=== PATIENT | male | born 1940 | race Caucasian/White ===

== ENCOUNTER 2022-11-06 09:52 | Emergency (ER) | payer MEDICARE, SELFPAY ==
[2022-11-06 09:56] VITALS: BP 138/98; PULSE 100; RESP 18; TEMP 37.1; O2SAT 98; BMI 26.9
--- NOTE | 2022-11-06 10:09 | ED.GENADUL1 ---
HPI - General Adult General Chief complaint: Allergic Reaction Stated complaint: FACIAL SWELLING Time Seen by Provider: 11/06/22 09:59 Source: patient History of Present Illness HPI narrative: pt presents to emergency department complaining of left lower lip swelling. Patient states yesterday he woke up and his left lower lid felt like it was swollen as if he had bit himself.Patient has a history of bruxism and was not wearing any my card. He states since yesterday after he felt like he bit himself started noticing swelling and this morning the swelling had worsened and there is a small amount of erythema. He went to see his primary care doctor and they did not have an appointment until 4 PM but advised him to come to the emergency department. Patient does not have a history of hypertension does not take any antihypertensives. He denies any trauma. He does have a history of diabetes. He denies any tongue swelling, throat swelling, difficulty swallowing or breathing. He has not taking anything at home. He denies any Fever, chills, cough or upper respiratory infection symptoms. He denies any headache. Denies any chest pain, shortness of breath. Related Data Home Medications Medication Instructions Recorded Confirmed fluticasone propionate 50 2 spray intranasal Q12H 11/06/22 11/06/22 mcg/actuation nasal spray,suspension glipizide 10 mg tablet 10 mg PO QDAY 11/06/22 11/06/22 metformin 500 mg tablet,extended 500 mg PO QDAY 11/06/22 11/06/22 release 24 hr Previous Rx's Medication Instructions Recorded amoxicillin 875 mg-potassium 1 tab PO BID #20 tabs 11/06/22 clavulanate 125 mg tablet Allergies Allergy/AdvReac Type Severity Reaction Status Date / Time codeine Allergy Severe Verified 11/06/22 10:16 Review of Systems ROS Status of ROS 10 or more systems reviewed and unremarkable except as noted in history and below PFSH PFS Social History Smoking status: Never smoker Exam Narrative Exam Narrative: Nurses notes and vital signs reviewed and patient is not hypoxic. General: Elderly, Nontoxic, Well-appearing and in no apparent distress. Skin: Warm, dry, no pallor noted. No Rash Head: Normocephalic, atraumatic. Neck: Supple, non-tender. Eye: Pupils are equal, round and EOMI. No scleral icterus. Ears, Nose, Mouth, and Throat: TM clear, no posterior oropharynx erythema or nasal mucosal hypertrophy, uvula is mid-line Oral mucosa is moist, There is no tongue elevation, no trismus, oropharynx is clear. There is an intra-oral wound to the left lower lip with some fullness but no fluctuance. There is some mild amount of erythema, no crepitance and no abscess noted. Poor dentition, signs of grinding noted. Cardiovascular: Regular Rate and Rhythm without murmur, gallop or rub. Respiratory: No accessory muscle use or respiratory distress. Lungs are clear to auscultation, no wheezing, rales or rhonchi Chest Wall: no tenderness Back: No midline thoracic or lumbar vertebral tenderness. No CVA tenderness Musculoskeletal: normal ROM, no calf or popliteal tenderness, no lower extremity edema/swelling GI: Abdomen is soft, non-distended. Normal bowel sounds. No masses appreciated. No tenderness to palpation. No rebound, guarding, or rigidity noted. Neurological: A&O x4. No cranial nerve dysfunction observed. No truncal ataxia. Moves all extremities. Sensation intact. Psychiatric: Cooperative and interactive. Normal mood and affect. Constitutional Vital Signs - 24 hr 11/06/22 09:56 Temperature 98.8 F Pulse Rate [Monitor] 100 H Respiratory Rate 18 Blood Pressure [Left Arm] 138/98 H Pulse Oximetry 98 Oxygen Delivery Method Room Air Course Vital Signs Vital signs: Vital Signs Temperature 98.8 F 11/06/22 09:56 Pulse Rate 100 H 11/06/22 09:56 Respiratory Rate 18 11/06/22 09:56 Blood Pressure 138/98 H 11/06/22 09:56 Pulse Oximetry 98 11/06/22 09:56 Oxygen Delivery Method Room Air 11/06/22 09:56 Temperature 98.8 F 11/06/22 09:56 Pulse Rate 100 H 11/06/22 09:56 Respiratory Rate 18 11/06/22 09:56 Blood Pressure 138/98 H 11/06/22 09:56 Pulse Oximetry 98 11/06/22 09:56 Oxygen Delivery Method Room Air 11/06/22 09:56 Medical Decision Making MDM Narrative Medical decision making narrative: Patient does not have any signs of angioedema. There is erythema and an intraoral wound. Patient is advised to use a mouth guard follow-up with primary care doctor and dentist. He started on Augmentin. Advised continue to monitor. If symptoms worsen he is to return immediately to the emergency department. At this time the patient is without objective evidence of an acute process requiring hospitalization or inpatient management. The patient has remained hemodynamically stable. No additional indication for emergent studies at this time. I answered all questions. Discussed discharge instructions including standard anticipatory guidance and what should prompt a return to the emergency department, including if they get worse are not getting better or develops any new or concerning symptoms. I've given them specific time frame in which to follow-up, and who to follow-up with. The patient demonstrates understanding. Patient is nontoxic and stable for discharge with outpatient follow-up. This note was created with the assistance of a speech recognition program. Although the intention is to generate documents that actually reflects the content of the visit, no guarantees can be provided that every mistake has been identified and corrected by editing. Discharge Plan Discharge Chief Complaint: Allergic Reaction Clinical Impression: Cellulitis of lip Patient Disposition: Home, Self-Care Time of Disposition Decision: 10:16 Condition: Good Mode of Transportation: Private Vehicle Prescriptions / Home Meds: New amoxicillin-pot clavulanate 875-125 mg tablet 1 tab PO BID Qty: 20 0RF No Action fluticasone propionate 50 mcg/actuation spray,suspension 2 spray INTRANASAL Q12H metformin 500 mg tablet extended release 24 hr 500 mg PO QDAY glipizide 10 mg tablet 10 mg PO QDAY Instructions: Cellulitis (ED) Stand Alone Forms: Portal Instructions Referrals: Jorge Luis Sotelo MD [Primary Care Provider] - 1 week
== END 2022-11-06 10:43 | disposition home or self-care (01) ==
PROVIDERS: Emergency Provider Emergency Medicine; PCP Family Medicine
DX: K13.0 Diseases of lips (principal); Z79.899 Other long term (current) drug therapy; Z79.84 Long term (current) use of oral hypoglycemic drugs
CPT/HCPCS: 99283

== ENCOUNTER 2023-01-02 14:02 | Emergency (ER) | payer MEDICARE, SELFPAY ==
[2023-01-02 14:07] VITALS: BP 134/85; PULSE 88; RESP 18; TEMP 36.8; O2SAT 98; BMI 39.9
--- NOTE | 2023-01-02 14:18 | PC.NURSE ---
red raised draining rash at this time.
[2023-01-02] MEDS: FLUORESCEIN SODIUM 1 MG STRIP OP (14:19)
--- NOTE | 2023-01-02 14:24 | ED.SKABFB1 ---
HPI - Skin/Abscess/Foreign Bdy General Chief complaint: Skin/Abscess/Foreign Body Stated complaint: NAUSEA Time Seen by Provider: 01/02/23 14:09 Source: patient Mode of arrival: walk-in Limitations: no limitations History of Present Illness HPI narrative: patient is an 82-year-old male who presents to the emergency department for the evaluation of a rash over the forehead. Patient states the rash began yesterday. He denies that it is painful or pruritic. He states today he noticed that his left eyelid was swollen and he has had some drainage from his left eye. He saw his PCP yesterday and was diagnosed with shingles and he is concerned today that the shingles may be traveling to his eye. He states he has been nauseous and had dry heaving this morning, he was started on amoxicillin yesterday by his PCP for left otitis media. He denies any upper respiratory symptoms. No visual changes, fevers. He has no chest pain or abdominal pain. Related Data Home Medications Medication Instructions Recorded Confirmed fluticasone propionate 50 2 spray intranasal Q12H 11/06/22 11/06/22 mcg/actuation nasal spray,suspension glipizide 10 mg tablet 10 mg PO QDAY 11/06/22 11/06/22 metformin 500 mg tablet,extended 500 mg PO QDAY 11/06/22 11/06/22 release 24 hr Previous Rx's Medication Instructions Recorded amoxicillin 875 mg-potassium 1 tab PO BID #20 tabs 11/06/22 clavulanate 125 mg tablet acyclovir 800 mg tablet See Rx Instructions .Route 01/02/23 .COMPLEX #35 tabs ondansetron 4 mg disintegrating 4 mg PO Q6H PRN nausea and 01/02/23 tablet vomiting #12 tabs prednisone 20 mg tablet See Rx Instructions .Route 01/02/23 .COMPLEX #6 tabs Allergies Allergy/AdvReac Type Severity Reaction Status Date / Time codeine Allergy Severe Verified 11/06/22 10:16 Review of Systems ROS Constitutional Denies: fever or chills Eyes Reports: eye discharge; Denies: change in vision or blurry vision Ears, nose, mouth, and throat Denies: throat pain Cardiovascular Denies: chest pain Respiratory Denies: shortness of breath or cough Gastrointestinal Reports: nausea; Denies: abdominal pain Musculoskeletal Denies: back pain Integumentary/Breast Reports: rash Neurological Denies: headache PFSH PFSH Social History Smoking status: Never smoker Exam Narrative Exam Narrative: Gen.: Awake, alert, in no distress Head: Normocephalic, atraumatic ENT: Moist mucous membranes, left upper eyelid is mildly edematous, no conjunctival injection or active drainage. Normal range of motion in the eyes that is painless Respiratory: No respiratory distress Extremities: Moves extremities equally Psych: Normal mood and affect Neuro: No focal neuro deficit Skin: Warm, dry, erythematous, linear vesicular rash over the left forehead with no excoriation, no active drainage. No evidence of secondary cellulitis. No mucous membrane involvement Constitutional Vital Signs, click to edit/add: Last Vital Signs Temp 98.2 F 01/02/23 14:07 Pulse 88 01/02/23 14:07 Resp 18 01/02/23 14:07 BP 134/85 01/02/23 14:07 Pulse Ox 98 01/02/23 14:07 Course Vital Signs Vital signs: Vital Signs Temperature 98.2 F 01/02/23 14:07 Pulse Rate 88 01/02/23 14:07 Respiratory Rate 18 01/02/23 14:07 Blood Pressure 134/85 01/02/23 14:07 Pulse Oximetry 98 01/02/23 14:07 Temperature 98.2 F 01/02/23 14:07 Pulse Rate 88 01/02/23 14:07 Respiratory Rate 18 01/02/23 14:07 Blood Pressure 134/85 01/02/23 14:07 Pulse Oximetry 98 01/02/23 14:07 MDM - Skin/Abscess/Foreign Bdy MDM Narrative Medical decision making narrative: the patient's left eye was anesthetized with tetracaine and stained with fluorescein, examined under Harrison lamp. There is minimal irritation noted in the inferior eye on the conjunctiva but the patient has no dendritic lesions or areas of significant uptake. patient reevaluated by attending physician, patient was instructed to stop the Augmentin he was given yesterday as his tympanic membranes are clear, he was instructed to follow-up with PCP and ophthalmology. Prednisone, acyclovir, Zofran given for home. Return to the emergency departmment if symptoms change or worsen. Medical Records Attestation: I reviewed the patient's medical records. Discharge Plan Discharge Chief Complaint: Skin/Abscess/Foreign Body Clinical Impression: Herpes zoster, Nausea Patient Disposition: Home, Self-Care Time of Disposition Decision: 14:50 Condition: Good Prescriptions / Home Meds: New prednisone 20 mg tablet See Rx Instructions .ROUTE .COMPLEX Qty: 6 0RF Rx Instructions: 2 tabs daily for 2 days, then 1 tab daily for 2 days acyclovir 800 mg tablet See Rx Instructions .ROUTE .COMPLEX Qty: 35 0RF Rx Instructions: 800 mg orally 5 times a day for 7 days ondansetron 4 mg tablet,disintegrating 4 mg PO Q6H PRN (Reason: nausea and vomiting) Qty: 12 0RF No Action fluticasone propionate 50 mcg/actuation spray,suspension 2 spray INTRANASAL Q12H metformin 500 mg tablet extended release 24 hr 500 mg PO QDAY glipizide 10 mg tablet 10 mg PO QDAY amoxicillin-pot clavulanate 875-125 mg tablet 1 tab PO BID Qty: 20 0RF Instructions: Shingles (ED), Acute Nausea and Vomiting (ED) Stand Alone Forms: Portal Instructions Referrals: Jorge Luis Sotelo MD [Primary Care Provider] - 1 week
[2023-01-02] MEDS: TOBRAMYCIN 0.3% OP SOL 100 DROP/5 ML BOTTLE OP (15:04)
== END 2023-01-02 15:07 | disposition home or self-care (01) ==
PROVIDERS: Emergency Provider Emergency Medicine; PCP Family Medicine
DX: B02.9 Zoster without complications (principal); R11.0 Nausea; Z79.84 Long term (current) use of oral hypoglycemic drugs; Z79.899 Other long term (current) drug therapy
CPT/HCPCS: 99283

== ENCOUNTER 2023-05-02 09:35 | Outpatient (OUT) | payer MEDICARE, SELFPAY ==
[2023-05-02 10:01] LABS: Basophils Absolute Auto 0.1 10^3/uL (0.0-0.1); Basophils Percent Auto 1.5 % (0.2-2.0); Eosinophils Absolute Auto 0.5 10^3/uL (0.0-0.7); Eosinophils Percent Auto 5.2 % (0.9-7.0); Hematocrit 39.9 % (42.0-54.0); Hemoglobin 13.2 g/dL (14.0-18.0); Immature Granulocytes Abs Auto 0.03 10^3/uL (0.00-0.03); Immature Granulocytes Pct Auto 0.3 % (0.0-0.5); Lymphocytes Absolute Auto 2.2 10^3/uL (1.2-3.8); Lymphocytes Percent Auto 23.5 % (20.5-60.0); Mean Corpuscular HGB Conc 33.1 g/dL (29.9-35.2); Mean Corpuscular Hemoglobin 30.6 pg (25.9-34.0); Mean Corpuscular Volume 92.4 fL (80.0-94.0); Mean Platelet Volume 9.7 fL (9.5-13.5); Monocytes Absolute Auto 0.8 10^3/uL (0.3-0.8); Monocytes Percent Auto 8.4 % (1.7-12.0); Neutrophils Absolute Auto 5.7 10^3/uL (1.4-6.5); Neutrophils Percent Auto 61.1 % (43.0-75.0); Platelet Count 425 10^3/uL (150-450); Red Blood Count 4.32 10^6/uL (4.70-6.10); Red Cell Distribution Width 12.2 % (11.0-15.0); White Blood Count 9.4 10^3/uL (4.0-11.0)
[2023-05-02 10:46] LABS: Free T4 0.96 ng/dL (0.76-1.46)
[2023-05-02 10:48] LABS: Estimated Average Glucose 154 mg/dL
[2023-05-02 10:54] LABS: Alanine Aminotransferase 22 U/L (16-63); Albumin Level 3.5 g/dL (3.4-5.0); Alkaline Phosphatase 68 U/L (46-116); Anion Gap 11.5; Aspartate Amino Transferase 12 U/L (15-37); BUN Creatinine Ratio 21.4; Bilirubin Direct 0.1 mg/dL (0.0-0.2); Bilirubin Total 0.5 mg/dL (0.2-1.0); Calcium 9.3 mg/dL (8.5-10.1); Carbon Dioxide 30.1 mmol/L (21.0-32.0); Chloride 103 mmol/L (98-107); Chol HDL Ratio 4.3; Cholesterol 216 mg/dL (<=200); Estimated GFR (African America >60 (>=60); Estimated GFR (Non-African Ame 53 (>=60); Free T3 2.03 pg/mL (2.18-3.98); Globulin 3.6 g/dL; Glucose 174 mg/dL (74-106); HDL Cholesterol 50 mg/dL (40-60); Potassium 3.6 mmol/L (3.5-5.1); Sodium 141 mmol/L (136-145); Thyroid Stimulating Hormone 1.687 uIU/mL (0.358-3.740); Total Protein 7.1 g/dL (6.4-8.2); Triglycerides 180 mg/dL (<=150)
[2023-05-02 11:17] LABS: Prostate Specific Antigen Scrn 0.41 ng/mL (<=4.00)
== END 2023-05-02 09:36 | disposition home or self-care (01) ==
PROVIDERS: PCP Family Medicine; Visit Provider Family Medicine
DX: E11.65 Type 2 diabetes mellitus with hyperglycemia (principal); Z79.899 Other long term (current) drug therapy; E03.9 Hypothyroidism, unspecified; E78.5 Hyperlipidemia, unspecified; Z12.5 Encounter for screening for malignant neoplasm of prostate
CPT/HCPCS: 36415; 80048; 80061; 80076; 82043; 83036; 84439; 84443; 84481; 85025; G0103

== ENCOUNTER 2023-12-03 13:01 | Outpatient (OUT) | payer MEDICARE, SELFPAY ==
--- NOTE | 2023-12-03 | XR_ITS ---
[address] [address] Patient Name: JAM RAMIREZ MRN: [id number] date: 1940 Sex: M Assigned Patient Location: [facility] Current Patient Location: Accession/Order Number: [id number] Exam Date: 12/03/2023 13:05 Report Date: 12/06/2023 04:26 At the request of: GERSON MALIK Procedure: XR lumbar spine 2-3V EXAMINATION: XR lumbar spine 2-3V HISTORY: Lumbar spondylosis M47.816 COMPARISON: No relevant comparison available. FINDINGS: BONES: Mild left convex curvature of lumbar spine. Moderate degenerative facet arthropathy L3-L4 through L5-S1. Minimal grade 1 retrolisthesis of L2 on 3. No compression fracture. DISC SPACES: Moderate narrowing L1-L2. Marked narrowing L5-S1. PARASPINOUS: Marked atherosclerotic disease of distal aorta. OTHER: Negative. XR/XR lumbar spine 2-3V IMPRESSION: 1. Multilevel degenerative disc disease and facet arthropathy. 2. No appreciable fracture or acute abnormality. Electronically authenticated by: CARLOS SELF Date: 12/06/2023 04:26
--- OUTSIDE RECORDS SUMMARY | 2023-12-03 13:21 | XMS_ITS | CCD ---
Author Organization [facility] Care Team Providers Care Specialty Person Name Role Phone KING, DR GERSON Packer Attending Unavailable NADERER, DR GERSON Packer Consulting Unavailable NADERER, DR GERSON Packer Primary Care Unavailable NADERER, DR GERSON Packer Admitting Unavailable NADERER, DR GERSON Packer Consulting Unavailable NADERER, DR GERSON Packer Primary Care Unavailable NADERER, DR GERSON Packer Admitting Unavailable NADERER, DR GERSON Packer Attending Unavailable NADERER, DR GERSON Packer Consulting Unavailable NADERER, DR GERSON Packer Primary Care Unavailable NADERER, DR GERSON Packer Admitting Unavailable NADERER, DR GEROSN Packer Attending Unavailable NADERER, GERSON Attending Unavailable Allergies Allergy Classification Reported Allergen(s) Allergy Type Date of Onset Reaction(s) Facility (1 source) Codeine Drug Allergy 07-02-2021 [facility] Repository Problems Active Problems Problem Classification Problem Date Documented Da te Episodic/Chronic Chronic obstructive pulmonary disease and bronchiectasis (4 sources) Chronic obstructive pulmonary disease, unspecified; Translations: [COPD UNSPECIFIED] Onset: 02-21-2022 Chronic Diabetes mellitus with complications (4 sources) Type 2 diabetes mellitus with hyperglycemia; Translations: [TYPE 2 DM W/HYPERGLYCEMIA] Onset: 09-16-2022 Chronic Disorders of lipid metabolism (1 source) Hyperlipidemia, unspecified; Translations: [HYPERLIPIDEMIA UNSPECIFIED] Onset: 02-16-2022 Chronic Past or Other Problems Problem Classification Problem Date Documented Da te Episodic/Chronic Other aftercare (1 source) 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; Translations: [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 CURRENT DRUG THERAPY] Onset: 02-16-2022 Episodic Other screening for suspected conditions (not mental disorders or infectious disease) (1 source) Encounter for screening for malignant neoplasm of prostate; Translations: [ENC SCREEN MALIG NEOPLASM PROSTATE] Onset: 02-16-2022 Episodic Results Test Name Value Interpretation Reference Range Facil ity GLYCOHEMOGLOBIN A1Con 2022 ADA RECOMMENDATION SEE BELOW Normal [facility] Comment on above: Result Comment: ADA RECOMMENDED LIMIT 4.0 - 6.0 ADA THERAPEUTIC TARGET < 7.0 ACTION SUGGESTED > 7.0 Performed By: #### A 1C #### [facility] [address] [place] [address] Dr. Sulema Blair Glucose [Mass/Vol] 160 mg/dL Normal [facility] [place] Comment on above: Performed By: #### A 1C #### [facility] [address] [place] [address] Dr. Sulema Blair HbA1c (Bld) [Mass fraction] 7.2 % Critically high 4.5-6.2 [facility] Comment on above: Performed By: #### A 1C #### [facility] [address] [place] [address] Dr. Sulema Blair MICROALBUMIN URINEon 022 Albumin, Urine 11.1 ug/mL Normal Not Estab. The [facility] Comment on above: Performed By: #### M ALBLC #### [facility] [address] [place] [address] Dr. Sulema Blair CBC AUTO DIFFon 02-12-2022 BASO # 0.1 103/ul Normal 0.0-0.1 [facility] Comment on above: Performed By: #### C BC #### [facility] [address] [place] [address] Dr. Sulema Blair Basophils/100 WBC (Bld) 0.7 % Normal 0.2-2.0 [facility] Comment on above: Performed By: #### C BC #### [facility] [address] [place] [address] Dr. Sulema Blair EO # 0.4 103/ul Normal 0.0-0.7 [facility] Comment on above: Performed By: #### C BC #### [facility] [address] [place] [address] Dr. Sulema Blair Eosinophils/100 WBC (Bld) 3.7 % Normal 0.9-7.0 [facility] Comment on above: Performed By: #### C BC #### [facility] [address] [place] [address] Dr. Sulema Blair Erythrocyte distribution width (RBC) [Ratio] 13.0 % Normal 11.0-15.0 [facility] Comment on above: Performed By: #### C BC #### [facility] [address] [place] [address] Dr. Sulema Blair Hematocrit (Bld) [Volume fraction] 37.7 % Critically low 42.0-54.0 [facility] Comment on above: Performed By: #### C BC #### [facility] [address] [place] [address] Dr. Sulema Blair Hemoglobin (Bld) [Mass/Vol] 12.4 g/dL Critically low 14.0-18.0 [facility] Comment on above: Performed By: #### C BC #### [facility] [address] [place] [address] Dr. Sulema Blair IG # 0.03 10e3/ul Normal 0.00-0.03 [facility] Comment on above: Performed By: #### C BC #### [facility] [address] [place] [address] Dr. Suleam Blair IG % 0.3 % Normal 0.0-0.5 [facility] Comment on above: Performed By: #### C BC #### [facility] [address] [place] [address] Dr. Sulema Blair LYMPH # 1.3 103/ul Normal 1.2-3.8 [facility] Comment on above: Performed By: #### C BC #### [facility] [address] [place] [address] Dr. Sulema Blair Lymphocytes/100 WBC (Bld) 13.7 % Critically low 20.5-60.0 [facility] Comment on above: Performed By: #### C BC #### [facility] [address] [place] [address] Dr. Sulema Blair MANUAL DIFF REQ NO Normal The [facility] Comment on above: Performed By: #### C BC #### [facility] [address] [place] [address] Dr. Sulema Blair MCH (RBC) [Entitic mass] 30.5 pg Normal 25.9-34.0 [facility] Comment on above: Performed By: #### C BC #### [facility] [address] [place] [address] Dr. Sulema Blair MCHC (RBC) [Mass/Vol] 32.9 g/dL Normal 29.9-35.2 [facility] Comment on above: Performed By: #### C BC #### [facility] [address] [address] [address] Sulema Blair MCV (RBC) [Entitic vol] 92.9 fL Normal 80.0-94.0 [facility] Comment on above: Performed By: #### C BC #### [facility] [address] [place] [address] Dr. Sulema Blair MONO # 0.9 103/ul Critically high 0.3-0.8 [facility] Comment on above: Performed By: #### C BC #### [facility] [address] [place] [address] Dr. Sulema Blair Monocytes/100 WBC (Bld) 9.7 % Normal 1.7-12.0 [facility] Comment on above: Performed By: #### C BC #### [facility] [address] [place] [address] Dr. Sulema Blair NEUT # 6.9 103/ul Critically high 1.4-6.5 [facility] Comment on above: Performed By: #### C BC #### [facility] [address] [place] [address] Dr. Sulema Blair Neutrophils/100 WBC (Bld) 71.9 % Normal 43.0-75.0 [facility] Comment on above: Performed By: #### C BC #### [facility] [address] [place] [address] Dr. Sulema Blair Platelet mean volume (Bld) [Entitic vol] 10.7 fL Normal 9.5-13.5 [facility] Comment on above: Performed By: #### C BC #### [facility] [address] [place] [address] Dr. Sulema Blair PLT 313 103/ul Normal 150-450 [facility] Comment on above: Performed By: #### C BC #### [facility] [address] [address] [address] Sulema Blair RBC 4.06 106/ul Critically low 4.70-6.10 [facility] Comment on above: Performed By: #### C BC #### [facility] [address] [address] [address] Sulema Blair WBC 9.6 103/ul Normal 4.0-11.0 [facility] Comment on above: Performed By: #### C BC #### [facility] [address] [address] [address] Sulema Blair GLYCOHEMOGLOBIN A1Con 2021 ADA RECOMMENDATION SEE BELOW Normal [facility] [place] Comment on above: Result Comment: ADA RECOMMENDED LIMIT 4.0 - 6.0 ADA THERAPEUTIC TARGET < 7.0 ACTION SUGGESTED > 7.0 Performed By: #### A 1C #### [facility] [address] [address] [address] Sulema Blair Glucose [Mass/Vol] 157 mg/dL Normal [facility] [place] Comment on above: Performed By: #### A 1C #### [facility] [address] [address] [address] Sulema Blair HbA1c (Bld) [Mass fraction] 7.1 % Critically high 4.5-6.2 [facility] Comment on above: Performed By: #### A 1C #### [facility] [address] [place] [address] Dr. Sulema Blair LIPID PROFILEon 02-12-2022 CHOL-HDL RATIO NORM SEE BELOW Normal [facility] Comment on above: Result Comment: 3.3 - 4.4 LOW RISK 4.4 - 7.1 AVERAGE RISK 7.1 - 11.0 MODERATE RISK >11.0 HIGH RISK Performed By: #### L IVANNABELLA, BMP, LIPID #### [facility] [address] [address] [address] Sulema Blair Cholesterol [Mass/Vol] 238 mg/dL Critically high <=200 [facility] Comment on above: Performed By: #### L IVANNABELLA BMP, LIPID #### [facility] [address] [address] [address] Sulema Blair Cholesterol in HDL [Mass/Vol] 45 mg/dL Normal 40-60 [facility] Comment on above: Performed By: #### L IVANNABELLA BMP, LIPID #### [facility] [address] [address] [address] Sulema Blair Cholesterol in LDL [Mass/Vol] 141.4 mg/dL Normal [facility] Comment on above: Performed By: #### L IVANNABELLA BMP, LIPID #### [facility] [address] [place] [address] Dr. Sulema Blair Cholesterol.total/Cho lesterol in HDL [Mass ratio] 5.3 {ratio} Normal [facility] Comment on above: Performed By: #### L IVANNABELLA BMP, LIPID #### [facility] [address] [address] [address] Sulema Blair HDL NORMAL > or = 60 mg/dl - LOW CARDIOVASCULAR RISK <40 mg/dl - HIGH CARDIOVASCULAR RISK Normal [facility] Comment on above: Performed By: #### L IVANNABELLA BMP, LIPID #### [facility] [address] [place] [address] Dr. Sulema Blair LDL CALC NORMAL SEE BELOW Normal [facility] Comment on above: Result Comment: <100 mg/dl OPTIMAL 100 - 129 mg/dl NEAR OR ABOVE OPTIMAL 130 - 159 mg/dl BORDERLINE HIGH 160 - 189 mg/dl HIGH >190 mg/dl VERY HIGH Performed By: #### L IVANNABELLA BMP, LIPID #### [facility] [address] [address] [address] Sulema Blair Triglyceride [Mass/Vol] 258 mg/dL Critically high <=150 [facility] Comment on above: Performed By: #### L IVANNABELLA BMP, LIPID #### [facility] [address] [address] [address] Sulema Blair VLDL CALC 51.6 mg/dL Normal [facility] Comment on above: Performed By: #### L IVER, BMP, LIPID #### [facility] [address] [address] [address] Sulema Blair LIVER PROFILEon 02-12-2022 Albumin [Mass/Vol] 3.4 g/dL Normal 3.4-5.0 [facility] Comment on above: Performed By: #### L IVER, BMP, LIPID #### [facility] [address] [address] [address] Sulema Blair Albumin/Globulin [Mass ratio] 0.9 {ratio} Normal [facility] Comment on above: Performed By: #### L IVER, BMP, LIPID #### [facility] [address] [place] [address] Dr. Sulema Blair ALP [Catalytic activity/Vol] 78 U/L Normal 46-116 [facility] Comment on above: Performed By: #### L IVER, BMP, LIPID #### [facility] [address] [place] [address] Dr. Sulema Blair ALT [Catalytic activity/Vol] 27 U/L Normal 16-63 [facility] Comment on above: Performed By: #### L IVER, BMP, LIPID #### [facility] [address] [place] [address] Dr. Sulema Blair AST [Catalytic activity/Vol] 24 U/L Normal 15-37 [facility] Comment on above: Performed By: #### L IVER, BMP, LIPID #### [facility] [address] [place] [address] Dr. Sulema Blair BILI, CONJUGATED 0.1 mg/dL Normal 0.0-0.2 [facility] Comment on above: Performed By: #### L IVER, BMP, LIPID #### [facility] [address] [place] [address] Dr. Sulema Blair Bilirubin [Mass/Vol] 0.5 mg/dL Normal 0.2-1.0 [facility] Comment on above: Performed By: #### L IVER, BMP, LIPID #### [facility] [address] [place] [address] Dr. Sulema Blair Globulin (S) [Mass/Vol] 3.6 g/dL Normal [facility] Comment on above: Performed By: #### L IVER, BMP, LIPID #### [facility] [address] [address] [address] Sulema Blair Protein [Mass/Vol] 7.0 g/dL Normal 6.4-8.2 [facility] Comment on above: Performed By: #### L IVER, BMP, LIPID #### [facility] [address] [address] [address] Sulema Blair PROF CHEM 8 (BAS METB)on Anion gap [Moles/Vol] 12.5 mmol/L Normal [facility] Comment on above: Performed By: #### L IVER, BMP, LIPID #### [facility] [address] [place] [address] Dr. Sulema Blair Calcium [Mass/Vol] 9.4 mg/dL Normal 8.5-10.1 [facility] Comment on above: Performed By: #### L IVER, BMP, LIPID #### [facility] [address] [address] [address] Sulema Blair Chloride [Moles/Vol] 104 mmol/L Normal 98-107 [facility] Comment on above: Performed By: #### L IVER, BMP, LIPID #### [facility] [address] [place] [address] Dr. Sulema Blair CO2 [Moles/Vol] 30.5 mmol/L Normal 21.0-32.0 [facility] Comment on above: Performed By: #### L IVER, BMP, LIPID #### [facility] [address] [address] [address] Sulema Blair Creatinine [Mass/Vol] 1.46 mg/dL Critically high 0.70-1.30 [facility] Comment on above: Performed By: #### L IVER, BMP, LIPID #### [facility] [address] [address] [address] Sulema Blair EGFR-AF EQUATORIAL GUINEAN 56 mL/min/1.73m2 Critically low >=60 [facility] Comment on above: Performed By: #### L IVER, BMP, LIPID #### [facility] [address] [address] [address] Sulema Blair EGFR-NON AF EQUATORIAL GUINEAN 47 mL/min/1.73m2 Critically low >=60 [facility] Comment on above: Performed By: #### L IVER, BMP, LIPID #### [facility] [address] [address] [address] Sulema Blair Glucose [Mass/Vol] 159 mg/dL Critically high 74-106 [facility] Comment on above: Performed By: #### L IVER, BMP, LIPID #### [facility] [address] [address] [address] Sulema Blair Potassium [Moles/Vol] 4.0 mmol/L Normal 3.5-5.1 [facility] Comment on above: Performed By: #### L IVER, BMP, LIPID #### [facility] [address] [address] [address] Sulema Blair Sodium [Moles/Vol] 143 mmol/L Normal 136-145 [facility] Comment on above: Performed By: #### L IVER, BMP, LIPID #### [facility] [address] [address] [address] Sulema Blair Urea nitrogen [Mass/Vol] 16.0 mg/dL Normal 7.0-18.0 [facility] Comment on above: Performed By: #### L IVER, BMP, LIPID #### [facility] [address] [address] [address] Sulema Blair Urea nitrogen/Creatinine [Mass ratio] 11.0 mg/mg Normal [facility] Comment on above: Performed By: #### L IVER, BMP, LIPID #### [facility] [address] [place] [address] Dr. Sulema Blair Encounters Encounter Date Encounter Type Care Provider Facility Start: 07-07-2023 End: 07-07-2023 ambulatory GERSON MALIK Not Available Start: 09-16-2022 End: 09-17-[address] GERSON MALIK Facility:[facility] Start: 02-21-2022 End: 02-22-[address] GERSON MALIK Facility:[facility] Start: 02-12-2022 End: 02-13-[address] GERSON MALIK Facility:[facility] Procedures Date Procedure Procedure Detail Performing Clinician Start: 02-12-[address] GERSON ORTIZ Comment on above: Performed By: #### P [facility] #### [facility] [address] [place], [place] [address] Dr. Sulema Blair Payers Date Payer Category Payer Unknown [id number] 1940 Unknown [id number] 2.16.84 [id number] 1940 Unknown [id number] 2.16.84 [id number] 1940 Unknown [id number] 2.16.84 [id number] 1940 Unknown [id number] 2.16.84 [id number] Summary Purpose Family History No Family History Records FoundNo Family History Records Found Advance Directives No Advanced Directives Records FoundNo Advanced Directives Records Found Additional Source Comments (unrecognized sect ion and content) No Status Records FoundNo Status Records Found INFORMATION SOURCE (unrecogn ized section and content) DATE CREATED AUTHOR 09/19/[address] [facility] DATE CREATED AUTHOR AUTHOR'S ORGANIZ ATION 07/08/2023 [facility] FOR RECORDS PERTAINING TO PATIENTS WHO ARE OR HAVE BEEN ENROLLED IN A CHEMICAL DEPENDENCY/SUBSTANCEABUSE PROGRAM, SOME INFORMATION MAY BE OMITTED. This clinical summary was aggregated from multiple sources. Caution should be exercised in using it in the provision of clinical care. This summary normalizes information from multiple sources, and as a consequence, information in this document may materially change the coding, format and clinical context of patient data. In addition, data may be omitted in some cases. CLINICAL DECISIONS SHOULD BE BASED ON THE PRIMARY CLINICAL RECORDS. [facility] [employer] [facility]. provides no warranty or guarantee of the accuracy or completeness of information in this document.
== END 2023-12-03 13:02 | disposition home or self-care (01) ==
LOC: RAD 13:01
PROVIDERS: PCP Family Medicine; Visit Provider Family Medicine
DX: M47.816 Spondylosis without myelopathy or radiculopathy, lumbar region (principal); M51.36 Other intervertebral disc degeneration, lumbar region
CPT/HCPCS: 72100

== ENCOUNTER 2024-01-20 12:18 | Outpatient (OUT) | payer MEDICARE, SELFPAY ==
--- OUTSIDE RECORDS SUMMARY | 2024-01-20 12:22 | XMS_ITS | CCD ---
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; Translations: [OTH PRISON CURRENT DRUG THERAPY] Onset: 02-16-2022 Episodic Other screening for suspected conditions (not mental disorders or infectious disease) (1 source) Encounter for screening for malignant neoplasm of prostate; Translations: [ENC SCREEN MALIG NEOPLASM PROSTATE] Onset: 02-16-2022 Episodic Results Test Name Value Interpretation Reference Range Facil ity GLYCOHEMOGLOBIN A1Con 2022 ADA RECOMMENDATION SEE BELOW Normal [facility] Comment on above: Result Comment: ADA RECOMMENDED LIMIT 4.0 - 6.0 ADA THERAPEUTIC TARGET < 7.0 ACTION SUGGESTED > 7.0 Performed By: #### A 1C #### [facility] [address] [place] [address] Dr. Sulema Blair Glucose [Mass/Vol] 160 mg/dL Normal [facility] Comment on above: Performed By: #### A 1C #### [facility] [address] [place] [address] Dr. Sulema Blair HbA1c (Bld) [Mass fraction] 7.2 % Critically high 4.5-6.2 [facility] Comment on above: Performed By: #### A 1C #### [facility] [address] [place] [address] Dr. Sulema Blair MICROALBUMIN URINEon 022 Albumin, Urine 11.1 ug/mL Normal Not Estab. [facility] Comment on above: Performed By: #### M ALBLC #### [facility] [address] [place] [address] Dr. Sulema Blair CBC AUTO DIFFon 02-12-2022 BASO # 0.1 103/ul Normal 0.0-0.1 [facility] Comment on above: Performed By: #### C BC #### [facility] [address] [place] [address] Dr. Sulema Blair Basophils/100 WBC (Bld) 0.7 % Normal 0.2-2.0 [facility] Comment on above: Performed By: #### C BC #### [facility] [address] [place] [address] Dr. Sulema Blair EO # 0.4 103/ul Normal 0.0-0.7 [facility] Comment on above: Performed By: #### C BC #### [facility] [address] [place] [address] Dr. Sulema Blair Eosinophils/100 WBC (Bld) 3.7 % Normal 0.9-7.0 [facility] Comment on above: Performed By: #### C BC #### [facility] [address] [place] [address] Dr. Sulema Blair Erythrocyte distribution width (RBC) [Ratio] 13.0 % Normal 11.0-15.0 [facility] Comment on above: Performed By: #### C BC #### [facility] [address] [place] [address] Dr. Sulema Blair Hematocrit (Bld) [Volume fraction] 37.7 % Critically low 42.0-54.0 [facility] Comment on above: Performed By: #### C BC #### [facility] [address] [place] [address] Dr. Sulema Blair Hemoglobin (Bld) [Mass/Vol] 12.4 g/dL Critically low 14.0-18.0 [facility] Comment on above: Performed By: #### C BC #### [facility] [address] [place] [address] Dr. Sulema Blair IG # 0.03 10e3/ul Normal 0.00-0.03 [facility] Comment on above: Performed By: #### C BC #### [facility] [address] [place] [address] Dr. Sulema Blair IG % 0.3 % Normal 0.0-0.5 [facility] Comment on above: Performed By: #### C BC #### [facility] [address] [place] [address] Dr. Sulema Blair LYMPH # 1.3 103/ul Normal 1.2-3.8 [facility] Comment on above: Performed By: #### C BC #### [facility] [address] [place] [address] Dr. Sulema Blair Lymphocytes/100 WBC (Bld) 13.7 % Critically low 20.5-60.0 [facility] Comment on above: Performed By: #### C BC #### [facility] [address] [place] [address] Dr. Sulema Blair MANUAL DIFF REQ NO Normal [facility] Comment on above: Performed By: #### C BC #### [facility] [address] [address] [address] Sulema Blair MCH (RBC) [Entitic mass] 30.5 pg Normal 25.9-34.0 [facility] Comment on above: Performed By: #### C BC #### [facility] [address] [place] [address] Dr. Sulema Blair MCHC (RBC) [Mass/Vol] 32.9 g/dL Normal 29.9-35.2 [facility] Comment on above: Performed By: #### C BC #### [facility] [address] [place] [address] Dr. Sulema Blair MCV (RBC) [Entitic vol] 92.9 fL Normal 80.0-94.0 [facility] Comment on above: Performed By: #### C BC #### [facility] [address] [place] [address] Dr. Sulema Blair MONO # 0.9 103/ul Critically high 0.3-0.8 [facility] Comment on above: Performed By: #### C BC #### [facility] [address] [place] [address] Dr. Sulema Blair Monocytes/100 WBC (Bld) 9.7 % Normal 1.7-12.0 [facility] Comment on above: Performed By: #### C BC #### [facility] [address] [place] [address] Dr. Sulema Blair NEUT # 6.9 103/ul Critically high 1.4-6.5 [facility] Comment on above: Performed By: #### C BC #### [facility] [address] [place] [address] Dr. Sulema Balir Neutrophils/100 WBC (Bld) 71.9 % Normal 43.0-75.0 [facility] Comment on above: Performed By: #### C BC #### [facility] [address] [place] [address] Dr. Sulema Blair Platelet mean volume (Bld) [Entitic vol] 10.7 fL Normal 9.5-13.5 [facility] Comment on above: Performed By: #### C BC #### [facility] [address] [address] [address] Sulema Blair PLT 313 103/ul Normal 150-450 [facility] Comment on above: Performed By: #### C BC #### [facility] [address] [address] [address] Sulema Blair RBC 4.06 106/ul Critically low 4.70-6.10 [facility] Comment on above: Performed By: #### C BC #### [facility] [address] [address] [address] Sulema Blair WBC 9.6 103/ul Normal 4.0-11.0 [facility] Comment on above: Performed By: #### C BC #### [facility] [address] [place] [address] Dr. Sulema Blair GLYCOHEMOGLOBIN A1Con 2021 ADA RECOMMENDATION SEE BELOW Normal [facility] Comment on above: Result Comment: ADA RECOMMENDED LIMIT 4.0 - 6.0 ADA THERAPEUTIC TARGET < 7.0 ACTION SUGGESTED > 7.0 Performed By: #### A 1C #### [facility] [address] [place] [address] Dr. Sulema Blair Glucose [Mass/Vol] 157 mg/dL Normal [facility] Comment on above: Performed By: #### A 1C #### [facility] [address] [address] [address] Sulema Blair HbA1c (Bld) [Mass fraction] 7.1 % Critically high 4.5-6.2 [facility] Comment on above: Performed By: #### A 1C #### [facility] [address] [place] [address] Dr. Sulema Blair LIPID PROFILEon 02-12-2022 CHOL-HDL RATIO NORM SEE BELOW Normal [facility] Comment on above: Result Comment: 3.3 - 4.4 LOW RISK 4.4 - 7.1 AVERAGE RISK 7.1 - 11.0 MODERATE RISK >11.0 HIGH RISK Performed By: #### L EMILIA, BMP, LIPID #### [facility] [address] [place] [address] Dr. Sulema Blair Cholesterol [Mass/Vol] 238 mg/dL Critically high <=200 [facility] Comment on above: Performed By: #### L MICHELLE NIETO, LIPID #### [facility] [address] [address] [address] Sulema Blair Cholesterol in HDL [Mass/Vol] 45 mg/dL Normal 40-60 [facility] Comment on above: Performed By: #### L MICHELLE NIETO, LIPID #### [facility] [address] [address] [address] Sulema Blair Cholesterol in LDL [Mass/Vol] 141.4 mg/dL Normal [facility] Comment on above: Performed By: #### L MICHELLE NIETO, LIPID #### [facility] [address] [address] [address] Sulema Blair Cholesterol.total/Cho lesterol in HDL [Mass ratio] 5.3 {ratio} Normal [facility] Comment on above: Performed By: #### L MICHELLE NIETO, LIPID #### [facility] [address] [address] [address] Sulema Blair HDL NORMAL > or = 60 mg/dl - LOW CARDIOVASCULAR RISK <40 mg/dl - HIGH CARDIOVASCULAR RISK Normal [facility] Comment on above: Performed By: #### L MICHELLE NIETO, LIPID #### [facility] [address] [address] [address] Sulema Blair LDL CALC NORMAL SEE BELOW Normal [facility] Comment on above: Result Comment: <100 mg/dl OPTIMAL 100 - 129 mg/dl NEAR OR ABOVE OPTIMAL 130 - 159 mg/dl BORDERLINE HIGH 160 - 189 mg/dl HIGH >190 mg/dl VERY HIGH Performed By: #### L MICHELLE NIETO, LIPID #### [facility] [address] [address] [address] Sulema Blair Triglyceride [Mass/Vol] 258 mg/dL Critically high <=150 [facility] Comment on above: Performed By: #### L MICHELLE NIETO, LIPID #### [facility] [address] [address] [address] Sulema Blair VLDL CALC 51.6 mg/dL Normal [facility] Comment on above: Performed By: #### L IVANNABELLA, BMP, LIPID #### [facility] [address] [address] [address] Sulema Blair LIVER PROFILEon 02-12-2022 Albumin [Mass/Vol] 3.4 g/dL Normal 3.4-5.0 [facility] Comment on above: Performed By: #### L IVER BMP, LIPID #### [facility] [address] [address] [address] Sulema Blair Albumin/Globulin [Mass ratio] 0.9 {ratio} Normal [facility] Comment on above: Performed By: #### L IVANNABELLA BMP, LIPID #### [facility] [address] [address] [address] Sulema Blair ALP [Catalytic activity/Vol] 78 U/L Normal 46-116 [facility] Comment on above: Performed By: #### L IVANNABELLA BMP, LIPID #### [facility] [address] [address] [address] Sulema Blair ALT [Catalytic activity/Vol] 27 U/L Normal 16-63 [facility] Comment on above: Performed By: #### L EMILIA BMP, LIPID #### [facility] [address] [place] [address] Dr. Sulema Blair AST [Catalytic activity/Vol] 24 U/L Normal 15-37 [facility] Comment on above: Performed By: #### L IVANNABELLA BMP, LIPID #### [facility] [address] [address] [address] Sulema Blair BILI, CONJUGATED 0.1 mg/dL Normal 0.0-0.2 [facility] Comment on above: Performed By: #### L IVANNABELLA BMP, LIPID #### [facility] [address] [place] [address] Dr. Sulema Blair Bilirubin [Mass/Vol] 0.5 mg/dL Normal 0.2-1.0 [facility] Comment on above: Performed By: #### L IVANNABELLA BMP, LIPID #### [facility] [address] [place], [place] [id number] Dr. Sulema Blair Globulin (S) [Mass/Vol] 3.6 g/dL Normal [facility] Comment on above: Performed By: #### L IVER, BMP, LIPID #### [facility] [address] [place] [address] Dr. Sulema Blair Protein [Mass/Vol] 7.0 g/dL Normal 6.4-8.2 [facility] Comment on above: Performed By: #### L IVER, BMP, LIPID #### [facility] [address] [place] [address] Dr. Sulema Blair PROF CHEM 8 (BAS METB)on Anion gap [Moles/Vol] 12.5 mmol/L Normal [facility] Comment on above: Performed By: #### L IVER, BMP, LIPID #### [facility] [address] [place] [address] Dr. Sulema Blair Calcium [Mass/Vol] 9.4 mg/dL Normal 8.5-10.1 [facility] Comment on above: Performed By: #### L IVER, BMP, LIPID #### [facility] [address] [place] [address] Dr. Sulema Blair Chloride [Moles/Vol] 104 mmol/L Normal 98-107 [facility] Comment on above: Performed By: #### L IVER, BMP, LIPID #### [facility] [address] [place] [address] Dr. Sulema Blair CO2 [Moles/Vol] 30.5 mmol/L Normal 21.0-32.0 [facility] Comment on above: Performed By: #### L IVER, BMP, LIPID #### [facility] [address] [address] [address] Sulema Blair Creatinine [Mass/Vol] 1.46 mg/dL Critically high 0.70-1.30 [facility] Comment on above: Performed By: #### L IVER, BMP, LIPID #### [facility] [address] [address] [address] Sulema Blair EGFR-AF TRINIDADIAN 56 mL/min/1.73m2 Critically low >=60 [facility] Comment on above: Performed By: #### L IVER, BMP, LIPID #### [facility] [address] [place] [address] Dr. Sulema Blair EGFR-NON AF TRINIDADIAN 47 mL/min/1.73m2 Critically low >=60 [facility] Comment on above: Performed By: #### L IVER, BMP, LIPID #### [facility] [address] [address] [address] Sulema Blair Glucose [Mass/Vol] 159 mg/dL Critically high 74-[address] [facility] Comment on above: Performed By: #### L IVER, BMP, LIPID #### [facility] [address] [place] [address] Dr. Sulema Blair Potassium [Moles/Vol] 4.0 mmol/L Normal 3.5-5.1 [facility] Comment on above: Performed By: #### L IVER, BMP, LIPID #### [facility] [address] [place] [address] Dr. Sulema Blair Sodium [Moles/Vol] 143 mmol/L Normal 136-145 [facility] Comment on above: Performed By: #### L IVER BMP, LIPID #### [facility] [address] [place] [address] Dr. Sulema Blair Urea nitrogen [Mass/Vol] 16.0 mg/dL Normal 7.0-18.0 [facility] Comment on above: Performed By: #### L IVER, BMP, LIPID #### [facility] [address] [place] [address] Dr. Sulema Blair Urea nitrogen/Creatinine [Mass ratio] 11.0 mg/mg Normal [facility] Comment on above: Performed By: #### L IVER, BMP, LIPID #### [facility] [address] [place] [address] Dr. Sulema Blair Encounters Encounter Date Encounter Type Care Provider Facility Start: 01-06-2024 End: 01-06-2024 ambulatory GERSON MALIK Not Available Start: 12-02-2023 End: 12-02-2023 ambulatory GERSON MALIK Not Available Start: 07-07-2023 End: 07-07-2023 ambulatory GERSON MALIK Not Available Start: 09-16-2022 End: 09-17-[address] GERSON MALIK Facility:[facility] Start: 02-21-2022 End: 02-22-[address] GERSON MALIK Facility:[facility] Start: 02-12-2022 End: 02-13-[address] GERSON MALIK Facility:[facility] Procedures Date Procedure Procedure Detail Performing Clinician Start: 02-12-[address] GERSON ORTIZ Comment on above: Performed By: #### P [facility] #### [facility] [address] [place] [address] Dr. Sulema Blair Payers Date Payer Category Payer Unknown [id number] 1940 Unknown [id number] 2.16.84 [id number] 1940 Unknown [id number] 2.16.84 [id number] 1940 Unknown [id number] 2.16.84 [id number] 1942 Unknown [id number] 2.16.84 [id number] 1942 Unknown [id number] 2.16.84 [id number] 1940 Unknown [id number] 2.16.84 [id number] Summary Purpose Family History No Family History Records FoundNo Family History Records Found Advance Directives No Advanced Directives Records FoundNo Advanced Directives Records Found Additional Source Comments (unrecognized sect ion and content) No Status Records FoundNo Status Records Found INFORMATION SOURCE (unrecogn ized section and content) DATE CREATED AUTHOR 09/19/2022 [facility] DATE CREATED AUTHOR 'S ORGANIZ ATION 01/08/2024 [facility] EPIC FOR RECORDS PERTAINING TO PATIENTS WHO ARE [...] BE BASED ON THE PRIMARY CLINICAL RECORDS. [facility], [facility]. provides no warranty or guarantee of the accuracy or completeness of information in this document.
[2024-01-20 13:32] LABS: Estimated Average Glucose 148 mg/dL; Glycohemoglobin A1C 6.8 % (4.5-6.2)
== END 2024-01-20 12:19 | disposition home or self-care (01) ==
LOC: LAB 12:18
PROVIDERS: PCP Family Medicine; Visit Provider Family Medicine
DX: E11.65 Type 2 diabetes mellitus with hyperglycemia (principal)
CPT/HCPCS: 36415; 83036

== ENCOUNTER 2024-05-24 12:41 | Outpatient (OUT) | payer MEDICARE, SELFPAY ==
[2024-05-24 12:58] LABS: Basophils Absolute Auto 0.1 10^3/uL (0.0-0.1); Basophils Percent Auto 1.1 % (0.2-2.0); Eosinophils Absolute Auto 0.7 10^3/uL (0.0-0.7); Eosinophils Percent Auto 7.2 % (0.9-7.0); Hematocrit 36.3 % (42.0-54.0); Hemoglobin 12.3 g/dL (14.0-18.0); Immature Granulocytes Abs Auto 0.04 10^3/uL (0.00-0.03); Immature Granulocytes Pct Auto 0.4 % (0.0-0.5); Lymphocytes Absolute Auto 1.8 10^3/uL (1.2-3.8); Lymphocytes Percent Auto 18.7 % (20.5-60.0); Mean Corpuscular HGB Conc 33.9 g/dL (29.9-35.2); Mean Corpuscular Hemoglobin 30.8 pg (25.9-34.0); Mean Corpuscular Volume 90.8 fL (80.0-94.0); Mean Platelet Volume 9.5 fL (9.5-13.5); Monocytes Absolute Auto 0.7 10^3/uL (0.3-0.8); Monocytes Percent Auto 7.5 % (1.7-12.0); Neutrophils Absolute Auto 6.1 10^3/uL (1.4-6.5); Neutrophils Percent Auto 65.1 % (43.0-75.0); Platelet Count 419 10^3/uL (150-450); Red Cell Distribution Width 12.8 % (11.0-15.0); White Blood Count 9.4 10^3/uL (4.0-11.0)
[2024-05-24 13:15] LABS: Estimated Average Glucose 169 mg/dL; Glycohemoglobin A1C 7.5 % (4.5-6.2)
[2024-05-24 13:36] LABS: Free T4 0.73 ng/dL (0.76-1.46)
[2024-05-24 13:40] LABS: Alanine Aminotransferase 20 U/L (16-63); Albumin Globulin Ratio 0.9; Albumin Level 3.2 g/dL (3.4-5.0); Alkaline Phosphatase 77 U/L (46-116); Anion Gap 11.3; Aspartate Amino Transferase 14 U/L (15-37); BUN Creatinine Ratio 17.4; Bilirubin Direct <0.1 mg/dL (0.0-0.2); Bilirubin Total 0.3 mg/dL (0.2-1.0); Carbon Dioxide 32.4 mmol/L (21.0-32.0); Chloride 103 mmol/L (98-107); Chol HDL Ratio 6.3; Cholesterol 308 mg/dL (<=200); Estimated GFR (African America 55 (>=60 mL/min/1.73m^2); Estimated GFR (Non-African Ame 45 (>=60 mL/min/1.73m^2); Globulin 3.4 g/dL; Glucose 220 mg/dL (74-106); HDL Cholesterol 49 mg/dL (40-60); Potassium 3.7 mmol/L (3.5-5.1); Sodium 143 mmol/L (136-145); Thyroid Stimulating Hormone 2.088 uIU/mL (0.358-3.740); Total Protein 6.6 g/dL (6.4-8.2); Triglycerides 476 mg/dL (<=150); VLDL CHOLESTEROL 95.2 mg/dL
[2024-05-24 13:45] LABS: Prostate Specific Antigen Scrn 0.16 ng/mL (<=4.00)
[2024-05-24 13:49] LABS: Creatinine Urine Random 246.59 mg/dL (20.00-300.00); Microalbumin Urine Random 1.5 mg/dL (<=30.0)
[2024-05-24 14:00] LABS: LDL Cholesterol Direct 169 mg/dL
== END 2024-05-24 12:42 | disposition home or self-care (01) ==
LOC: LAB 12:41
PROVIDERS: PCP Family Medicine; Visit Provider Family Medicine
DX: E11.65 Type 2 diabetes mellitus with hyperglycemia (principal); Z79.899 Other long term (current) drug therapy; E78.5 Hyperlipidemia, unspecified; Z12.5 Encounter for screening for malignant neoplasm of prostate; E03.9 Hypothyroidism, unspecified
CPT/HCPCS: 36415; 80048; 80061; 80076; 82043; 82570; 83036; 83721; 84439; 84443; 85025; G0103

== ENCOUNTER 2024-06-24 10:30 | Outpatient (OUT) | payer MEDICARE, SELFPAY ==
--- OUTSIDE RECORDS SUMMARY | 2024-06-24 10:51 | XMS_ITS | CCD ---
Author Organization [facility] Care Team Providers Care Wood Type Cutter Name Role Phone KING, DR JORGE LUIS Packer Attending Unavailable NADERER, DR JORGE LUIS Packer Consulting Unavailable NADERER, DR JORGE LUIS Packer Primary Care Unavailable NADERER, DR JORGE LUIS Packer Admitting Unavailable NADERER, DR JORGE LUIS Packer Consulting Unavailable NADERERayne, DR JORGE LUIS Packer Primary Care Unavailable NADERER, DR JORGE LUIS Packer Admitting Unavailable NADERER, DR JORGE LUIS Packer Attending Unavailable NADERER, DR JORGE LUIS Packer Consulting Unavailable NADERER, DR JORGE LUIS Packer Primary Care Unavailable NADERER, DR JORGE LUIS Packer Admitting Unavailable NADERERayne, DR JORGE LUIS Packer Attending Unavailable Jorge Luis Malik MD Primary Care Provider [phone] Thomas Hassan MD Unavailable Jorge Luis Malik MD Unavailable KING, JORGE LUIS Attending Unavailable NADERER, JORGE LUIS Attending Unavailable NADERER, JORGE LUIS Attending Unavailable NADERERayne, JORGE LUIS Attending Unavailable NADERER, JORGE LUIS Attending Unavailable NADERER, JORGE LUIS Referring Unavailable Jayson SOUZA Attending Unavailable Allergies Allergy Classification Reported Allergen(s) Allergy Type Date of Onset Reaction(s) Facility (1 source) Codeine Drug Allergy 07-02-2021 [facility] Repository (11 sources) Codeine Drug Allergy 06-19-2023 [facility] Healthcare Medications Current Medications Medication Drug Class(es) Dates Sig (Normalized) Sig (Original) acetaminophen 325 mg oral tablet (11 sources) acetaminophen (Tylenol) 325 MG tablet Take by mouth Active [id number] 200 actuat albuterol 0.09 mg/actuat metered dose inhaler (20 sources) beta2-Adrenergic Agonist albuterol (2.5 MG/3M L) 0.083% nebulizer solution Take 2.5 mg by nebulization every 4 (four) hours if needed for wheezing Active take 2 puff(s) by in halation every four hours for wheezing albuterol HFA 90 mcg/act inhaler Inhale 2 puffs every 4 (four) hours if needed for wheezing Active ALPRAZolam 0.25 mg oral tablet (11 sources) Benzodiazepine take 1 tablet by mouth three times daily as needed for anxiety ALPRAZolam (Xanax) 0.25 MG tablet Take 0.25 mg by mouth 3 (three) times a day as needed for anxiety Active gabapentin 100 mg oral capsule (2 sources) Anti-epileptic Agent Start: 06-23-19 End: 06-23-19 26 take 1 capsule by mouth in the morning, then take 1 capsule by mouth in the evening, then take 1 capsule by mouth at bedtime gabapentin (Neurontin) 100 MG capsule Indications: Post herpetic neuralgia (CMS/HCC) Take 1 capsule (100 mg) by mouth in the morning and 1 capsule (100 mg) in the evening and 1 capsule (100 mg) before bedtime. 30 capsule 2 06/23/2024 06/23/2025 Active glipiZIDE 10 mg oral tablet (11 sources) Sulfonylurea Start: 10-09-19 take 1 tablet by mouth once daily glipiZIDE (Glucotrol) 10 MG tablet Indications: Type 2 diabetes mellitus with hyperglycemia, without long-term current use of insulin (CMS/HCC) Take 1 tablet (10 mg) by mouth Daily 90 tablet 3 10/09/2023 Active hydrOXYzine hydrochloride 25 mg oral tablet (11 sources) Antihistamine Start: 06-16-19 take 1 tablet by mouth four times daily as needed hydrOXYzine HCl (Atarax) 25 MG tablet Indications: Post herpetic neuralgia (CMS/HCC) TAKE 1 TABLET BY MOUTH 4 TIMES A DAY NEEDED FOR ITHCING 360 tablet 1 06/16/2024 Active Start: 12-30-2023 take 1 tablet by xenia th four times daily as needed hydrOXYzine HCl (Atarax) 25 MG tablet Indications: Post herpetic neuralgia (CMS/HCC) TAKE 1 TABLET BY MOUTH 4 TIMES A DAY NEEDED FOR ITHCING 360 tablet 1 12/30/2023 Active levoFLOXacin 750 mg oral tablet (3 sources) Quinolone Antimicrobial Start: 05-17-2024 End: 05-24-2024 take 1 tablet by mouth once daily levoFLOXacin (Levaquin) 750 MG tablet Indications: COPD exacerbation (CMS/HCC) Take 1 tablet (750 mg) by mouth Daily for 7 days 7 tablet 05/17/2024 05/24/2024 Active 24 hr metFORMIN hydrochloride 500 mg extended release oral tablet (11 sources) Biguanide Start: 05-11-2024 take 1 tablet by mouth once daily metFORMIN XR (Glucophage-XR) 500 MG 24 hr tablet Indications: Type 2 diabetes mellitus with hyperglycemia, without long-term current use of insulin (CMS/HCC) TAKE 1 TABLET BY MOUTH EVERY DAY 90 tablet 5 05/11/2024 Active Start: 07-19-2023 take 1 tablet by xenia th once daily metFORMIN XR (Glucophage-XR) 500 MG 24 hr tablet Take 500 mg by mouth Daily 07/19/2023 Active methocarbamol 750 mg oral tablet (4 sources) Muscle Relaxant Start: 12-02-2023 End: 05-17-2024 take 1 tablet by mouth four times daily as needed for muscle spasms methocarbamol (Robaxin) 750 MG tablet Indications: Lumbar spondylosis Take 1 tablet (750 mg) by mouth 4 (four) times a day as needed for muscle spasms 60 tablet 2 12/02/2023 05/17/2024 Discontinued olopatadine 2 mg/ml ophthalmic solution (9 sources) Histamine-1 Receptor Inhibitor Start: 03-26-2024 take 1 drop(s) into the eye(s) in the morning [facility] Olopatadine HCl 0.2 % ophthalmic solution Administer 1 drop into the left eye in the morning and 1 drop before bedtime. 03/26/2024 Active omeprazole 20 mg delayed release oral capsule (11 sources) Proton Pump Inhibitor take 1 capsule by mouth before mealtime omeprazole (PriLOSEC) [address] capsule Take 20 mg by mouth in the morning. Take before meals. Do not crush or chew.. Active OXcarbazepine 300 mg oral tablet (11 sources) Anti-epileptic Agent Start: 03-08-2024 take 1 tablet by mouth in the morning OXcarbazepine (Trileptal) 300 MG tablet Indications: Post herpetic neuralgia (CMS/HCC) TAKE 1 TABLET BY MOUTH IN THE MORNING AND 1 TABLET BEFORE BEDTIME 180 tablet 1 03/08/2024 Active Start: 07-07-2023 take 1 tablet by xenia th in the morning OXcarbazepine (Trileptal) 300 MG tablet Indications: Post herpetic neuralgia (CMS/HCC) Take 1 tablet (300 mg) by mouth in the morning and 1 tablet (300 mg) before bedtime. 60 tablet 5 07/07/2023 Active predniSONE 50 mg oral tablet (2 sources) Start: 05-17-2024 End: 05-23-2024 take 1 tablet by mouth once daily predniSONE (Deltasone) 50 MG tablet Indications: COPD exacerbation (CMS/HCC) Take 1 tablet (50 mg) by mouth Daily for 6 days 6 tablet 05/17/2024 05/23/2024 Active Problems Active Problems Problem Classification Problem Date Documented Date Episodic/Chronic Anxiety disorders (11 sources) Generalized anxiety disorder; Translations: [Generalized anxiety disorder] Onset: 07-07-2023 07-07-2023 Chronic Chronic obstructive pulmonary disease and bronchiectasis (17 sources) Chronic obstructive pulmonary disease, unspecified; Translations: [Chronic obstructive lung disease] Onset: 02-21-2022 Chronic Diabetes mellitus with complications (17 sources) Type 2 diabetes mellitus with hyperglycemia; Translations: [Hyperglycemia due to type 2 diabetes mellitus] Onset: 09-16-2022 Chronic Disorders of lipid metabolism (14 sources) Hyperlipidemia, unspecified; Translations: [Dyslipidemia] Onset: 02-16-2022 07-07-2023 Chronic Esophageal disorders (11 sources) Gastroesophageal reflux disease without esophagitis; Translations: [Gastro-esophageal reflux disease without esophagitis] Onset: 07-07-2023 07-07-2023 Chronic Genitourinary symptoms and ill-defined conditions (9 sources) Khai hematuria; Translations: [Gross hematuria] Onset: 06-14-2024 06-14-2024 Episodic Other aftercare (11 sources) Long-term current use of drug therapy; Translations: [Other oysterman (current) drug therapy] Onset: 05-17-2024 05-17-2024 Episodic Other screening for suspected conditions (not mental disorders or infectious disease) (12 sources) Encounter for screening for malignant neoplasm of prostate; Translations: [Patient encounter status] Onset: 02-16-2022 05-17-2024 Episodic Spondylosis; intervertebral disc disorders; other back problems (11 sources) Lumbar spondylosis; Translations: [Spondylosis without myelopathy or radiculopathy, lumbar region] Onset: 12-02-2023 12-02-2023 Chronic Thyroid disorders (13 sources) Hypothyroidism; Translations: [Hypothyroidism, unspecified] Onset: 07-07-2023 07-07-2023 Chronic Viral infection (13 sources) Postherpetic neuralgia; Translations: [Other postherpetic nervous system involvement] Onset: 07-07-2023 07-07-2023 Episodic Past or Other Problems Problem Classification Problem Date Documented Da te Episodic/Chronic Other aftercare (1 source) Other oysterman (current) drug therapy; Translations: [OTH WARE CLEANER CURRENT DRUG THERAPY] Onset: 02-16-2022 Episodic Other circulatory disease (11 sources) Elevated blood-pressure reading without diagnosis of hypertension; Translations: [Elevated blood-pressure reading, without diagnosis of hypertension] Onset: 07-07-2023 Resolved: 05-17-2024 07-07-2023 Episodic Residual codes; unclassified (11 sources) Persistent insomnia; Translations: [Insomnia, unspecified] Onset: 07-07-2023 07-07-2023 Episodic Results Test Name Value Interpretation Reference Range Facility ALL CBC WITH AUTO DIFFon BASOPHILS ABSOLUTE AUTO 0.1 [facility] Basophils/100 WBC (Bld) 1.1 % 0.2 - 2.0 % [facility] Eosinophils/100 WBC (Bld) 7.2 % High 0.9 - 7.0 % [facility] Erythrocyte distribution width (RBC) [Ratio] 12.8 % 11.0 - 15.0 % [facility] Hematocrit (Bld) [Volume fraction] 36.3 % Low 42.0 - 54.0 % [facility] Hemoglobin (Bld) [Mass/Vol] 12.3 g/dL Low 14.0 - 18.0 g/dL [facility] IMMATURE GRANULOCYTES ABS AUTO 0.04 High [facility] Immature granulocytes/100 WBC (Bld) 0.4 % 0.0 - 0.5 % [facility] Interpretation and review of laboratory results Abnormal [facility] LYMPHOCYTES ABSOLUTE AUTO 1.8 [facility] Lymphocytes/100 WBC (Bld) 18.7 % Low 20.5 - 60.0 % [facility] MCH (RBC) [Entitic mass] 30.8 pg 25.9 - 34.0 pg [facility] MCHC (RBC) [Mass/Vol] 33.9 g/dL 29.9 - 35.2 g/dL [facility] MCV (RBC) [Entitic vol] 90.8 fL 80.0 - 94.0 fL [facility] MONOCYTES ABSOLUTE AUTO 0.7 [facility] Monocytes/100 WBC (Bld) 7.5 % 1.7 - 12.0 % [facility] NEUTROPHILS ABSOLUTE AUTO 6.1 [facility] Neutrophils/100 WBC (Bld) 65.1 % 43.0 - 75.0 % [facility] Platelet mean volume (Bld) [Entitic vol] 9.5 fL 9.5 - 13.5 fL [facility] EO # 0.7 [facility] PLT 419 [facility] RBC 4 Low [facility] WBC 9.4 [facility] MLR HEMOGLOBIN A1Con 024 Glucose [Mass/Vol] 148 mg/dL [facility] HbA1c (Bld) [Mass fraction] 6.8 % High 4.5 - 6.2 % [facility] Comment on above: ADA RECOMMENDED LIMI T 4.0 - 6.0 ADA THERAPEUTIC TARGET < 7.0 ACTION SUGGESTED > 7.0 Interpretation and review of laboratory results Abnormal [facility] GLYCOHEMOGLOBIN A1Con 2022 ADA RECOMMENDATION SEE BELOW Normal [facility] Comment on above: Result Comment: ADA RECOMMENDED LIMIT 4.0 - 6.0 ADA THERAPEUTIC TARGET < 7.0 ACTION SUGGESTED > 7.0 Performed By: #### A 1C #### [facility] [address] [address] [address] Sulema Blair Glucose [Mass/Vol] 160 mg/dL Normal [facility] Comment on above: Performed By: #### A 1C #### [facility] [address] [place], [place] [address] Dr. Sulema Blair HbA1c (Bld) [Mass fraction] 7.2 % Critically high 4.5-6.2 [facility] Comment on above: Performed By: #### A 1C #### [facility] [address] [address] [address] Sulema Blair MICROALBUMIN URINEon 022 Albumin, Urine 11.1 ug/mL Normal Not Estab. [facility] Comment on above: Performed By: #### M ALBLC #### [facility] [address] [place] [address] Dr. Sulema Blair CBC AUTO DIFFon 02-12-2022 BASO # 0.1 103/ul Normal 0.0-0.1 [facility] Comment on above: Performed By: #### C BC #### [facility] [address] [place] [address] Dr. Sulema Blair Basophils/100 WBC (Bld) 0.7 % Normal 0.2-2.0 [facility] Comment on above: Performed By: #### C BC #### [facility] [address] [place] [address] Dr. Sulema Blair EO # 0.4 103/ul Normal 0.0-0.7 [facility] Comment on above: Performed By: #### C BC #### [facility] [address] [place] [address] Dr. Sulema Blair Eosinophils/100 WBC (Bld) 3.7 % Normal 0.9-7.0 [facility] Comment on above: Performed By: #### C BC #### [facility] [address] [place] [address] Dr. Sulema Blair Erythrocyte distribution width (RBC) [Ratio] 13.0 % Normal 11.0-15.0 [facility] Comment on above: Performed By: #### C BC #### [facility] [address] [place] [address] Dr. Sulema Blair Hematocrit (Bld) [Volume fraction] 37.7 % Critically low 42.0-54.0 [facility] Comment on above: Performed By: #### C BC #### [facility] [address] [place] [address] Dr. Sulema Blair Hemoglobin (Bld) [Mass/Vol] 12.4 g/dL Critically low 14.0-18.0 [facility] Comment on above: Performed By: #### C BC #### [facility] [address] [place] [address] Dr. Sulema Blair IG # 0.03 10e3/ul Normal 0.00-0.03 [facility] Comment on above: Performed By: #### C BC #### [facility] [address] [place] [address] Dr. Sulema Blair IG % 0.3 % Normal 0.0-0.5 [facility] Comment on above: Performed By: #### C BC #### [facility] [address] [place] [address] Dr. Sulema Blair LYMPH # 1.3 103/ul Normal 1.2-3.8 [facility] Comment on above: Performed By: #### C BC #### [facility] [address] [place] [address] Dr. Sulema Blair Lymphocytes/100 WBC (Bld) 13.7 % Critically low 20.5-60.0 [facility] Comment on above: Performed By: #### C BC #### [facility] [address] [place] [address] Dr. Sulema Blair MANUAL DIFF REQ NO Normal [facility] Comment on above: Performed By: #### C BC #### [facility] [address] [place] [address] Dr. Sulema Blair MCH (RBC) [Entitic mass] 30.5 pg Normal 25.9-34.0 [facility] Comment on above: Performed By: #### C BC #### [facility] [address] [place] [address] Dr. Sulema Blair MCHC (RBC) [Mass/Vol] 32.9 g/dL Normal 29.9-35.2 [facility] Comment on above: Performed By: #### C BC #### [facility] [address] [place] [address] Dr. Sulema Blair MCV (RBC) [Entitic vol] 92.9 fL Normal 80.0-94.0 [facility] Comment on above: Performed By: #### C BC #### [facility] [address] [place] [address] Dr. Sulema Blair MONO # 0.9 103/ul Critically high 0.3-0.8 [facility] Comment on above: Performed By: #### C BC #### [facility] [address] [address] [address] Sulema Blair Monocytes/100 WBC (Bld) 9.7 % Normal 1.7-12.0 [facility] Comment on above: Performed By: #### C BC #### [facility] [address] [address] [address] Sulema Blair NEUT # 6.9 103/ul Critically high 1.4-6.5 [facility] Comment on above: Performed By: #### C BC #### [facility] [address] [address] [address] Sulema Blair Neutrophils/100 WBC (Bld) 71.9 % Normal 43.0-75.0 [facility] Comment on above: Performed By: #### C BC #### [facility] [address] [place] [address] Dr. Sulema Blair Platelet mean volume (Bld) [Entitic vol] 10.7 fL Normal 9.5-13.5 [facility] Comment on above: Performed By: #### C BC #### [facility] [address] [place] [address] Dr. Sulema Blair PLT 313 103/ul Normal 150-450 [facility] Comment on above: Performed By: #### C BC #### [facility] [address] [place] [address] Dr. Sulema Blair RBC 4.06 106/ul Critically low 4.70-6.10 [facility] Comment on above: Performed By: #### C BC #### [facility] [address] [place] [address] Dr. Sulema Blair WBC 9.6 103/ul Normal 4.0-11.0 [facility] Comment on above: Performed By: #### C BC #### [facility] [address] [place] [address] Dr. Sulema Blair GLYCOHEMOGLOBIN A1Con 2021 ADA RECOMMENDATION SEE BELOW Normal [facility] Comment on above: Result Comment: ADA RECOMMENDED LIMIT 4.0 - 6.0 ADA THERAPEUTIC TARGET < 7.0 ACTION SUGGESTED > 7.0 Performed By: #### A 1C #### [facility] [address] [place] [address] Dr. Sulema Blair Glucose [Mass/Vol] 157 mg/dL Normal [facility] Comment on above: Performed By: #### A 1C #### [facility] [address] [address] [address] Sulema Blair HbA1c (Bld) [Mass fraction] 7.1 % Critically high 4.5-6.2 [facility] Comment on above: Performed By: #### A 1C #### [facility] [address] [place] [address] Dr. Sulema Blair LIPID PROFILEon 02-12-2022 CHOL-HDL RATIO NORM SEE BELOW Normal [facility] Comment on above: Result Comment: 3.3 - 4.4 LOW RISK 4.4 - 7.1 AVERAGE RISK 7.1 - 11.0 MODERATE RISK >11.0 HIGH RISK Performed By: #### L MICHELLE NIETO, LIPID #### [facility] [address] [place] [address] Dr. Sulema Blair Cholesterol [Mass/Vol] 238 mg/dL Critically high <=200 [facility] Comment on above: Performed By: #### MICHELLE PINO, LIPID #### [facility] [address] [place] [address] Dr. Sulema Blair Cholesterol in HDL [Mass/Vol] 45 mg/dL Normal 40-60 [facility] Comment on above: Performed By: #### L MICHELLE NIETO, LIPID #### [facility] [address] [address] [address] Sulema Blair Cholesterol in LDL [Mass/Vol] 141.4 mg/dL Normal [facility] Comment on above: Performed By: #### L MICHELLE NIETO, LIPID #### [facility] [address] [address] [address] Sulema Blair Cholesterol.total/Cho lesterol in HDL [Mass ratio] 5.3 {ratio} Normal [facility] Comment on above: Performed By: #### L IVER, BMP, LIPID #### [facility] [address] [address] [address] Sulema Blair HDL NORMAL > or = 60 mg/dl - LOW CARDIOVASCULAR RISK <40 mg/dl - HIGH CARDIOVASCULAR RISK Normal [facility] Comment on above: Performed By: #### L IVER, BMP, LIPID #### [facility] [address] [address] [address] Sulema Blair LDL CALC NORMAL SEE BELOW Normal [facility] Comment on above: Result Comment: <100 mg/dl OPTIMAL 100 - 129 mg/dl NEAR OR ABOVE OPTIMAL 130 - 159 mg/dl BORDERLINE HIGH 160 - 189 mg/dl HIGH >190 mg/dl VERY HIGH Performed By: #### L IVANNABELLA, BMP, LIPID #### [facility] [address] [address] [address] Sulema Blair Triglyceride [Mass/Vol] 258 mg/dL Critically high <=150 [facility] Comment on above: Performed By: #### L IVANNABELLA BMP, LIPID #### [facility] [address] [address] [address] Sulema Blair VLDL CALC 51.6 mg/dL Normal [facility] Comment on above: Performed By: #### L IVANNABELLA BMP, LIPID #### [facility] [address] [address] [address] Sulema Blair LIVER PROFILEon 02-12-2022 Albumin [Mass/Vol] 3.4 g/dL Normal 3.4-5.0 [facility] Comment on above: Performed By: #### L IVANNABELLA, BMP, LIPID #### [facility] [address] [address] [address] Sulema Blair Albumin/Globulin [Mass ratio] 0.9 {ratio} Normal [facility] Comment on above: Performed By: #### L IVANNABELLA, BMP, LIPID #### [facility] [address] [address] [address] Sulema Blair ALP [Catalytic activity/Vol] 78 U/L Normal 46-116 [facility] Comment on above: Performed By: #### L IVER, BMP, LIPID #### [facility] [address] [address] [address] Sulema Blair ALT [Catalytic activity/Vol] 27 U/L Normal 16-63 [facility] Comment on above: Performed By: #### L IVER, BMP, LIPID #### [facility] [address] [address] [address] Sulema Blair AST [Catalytic activity/Vol] 24 U/L Normal 15-37 [facility] Comment on above: Performed By: #### L IVER, BMP, LIPID #### [facility] [address] [address] [address] Sulema Blair BILI, CONJUGATED 0.1 mg/dL Normal 0.0-0.2 [facility] Comment on above: Performed By: #### L IVER, BMP, LIPID #### [facility] [address] [place] [address] Dr. Sulema Blair Bilirubin [Mass/Vol] 0.5 mg/dL Normal 0.2-1.0 [facility] Comment on above: Performed By: #### L IVER, BMP, LIPID #### [facility] [address] [address] [address] Sulema Blair Globulin (S) [Mass/Vol] 3.6 g/dL Normal [facility] Comment on above: Performed By: #### L IVER, BMP, LIPID #### [facility] [address] [address] [address] Sulema Blair Protein [Mass/Vol] 7.0 g/dL Normal 6.4-8.2 [facility] Comment on above: Performed By: #### L IVER, BMP, LIPID #### [facility] [address] [place] [address] Dr. Sulema Blair PROF CHEM 8 (BAS METB)on Anion gap [Moles/Vol] 12.5 mmol/L Normal [facility] Comment on above: Performed By: #### L IVER, BMP, LIPID #### [facility] [address] [place] [address] Dr. Sulema Blair Calcium [Mass/Vol] 9.4 mg/dL Normal 8.5-10.1 [facility] Comment on above: Performed By: #### L IVER BMP, LIPID #### [facility] [address] [address] [address] Sulema Blair Chloride [Moles/Vol] 104 mmol/L Normal 98-107 [facility] Comment on above: Performed By: #### L IVER BMP, LIPID #### [facility] [address] [address] [address] Sulema Blair CO2 [Moles/Vol] 30.5 mmol/L Normal 21.0-32.0 [facility] Comment on above: Performed By: #### L IVANNABELLA BMP, LIPID #### [facility] [address] [place] [address] Dr. Sulema Blair Creatinine [Mass/Vol] 1.46 mg/dL Critically high 0.70-1.30 [facility] Comment on above: Performed By: #### L IVANNABELLA BMP, LIPID #### [facility] [address] [place] [address] Dr. Sulema Blair EGFR-AF MALAGASY 56 mL/min/1.73m2 Critically low >=60 [facility] Comment on above: Performed By: #### L IVANNABELLA BMP, LIPID #### [facility] [address] [place] [address] Dr. Sulema Blair EGFR-NON AF MALAGASY 47 mL/min/1.73m2 Critically low >=60 [facility] Comment on above: Performed By: #### L IVER BMP, LIPID #### [facility] [address] [place] [address] Dr. Sulema Blair Glucose [Mass/Vol] 159 mg/dL Critically high 74-106 [facility] Comment on above: Performed By: #### L IVER BMP, LIPID #### [facility] [address] [place] [address] Dr. Sulema Blair Potassium [Moles/Vol] 4.0 mmol/L Normal 3.5-5.1 [facility] Comment on above: Performed By: #### L EMILIA BMP, LIPID #### [facility] [address], [place] [address] Dr. Sulema Blair Sodium [Moles/Vol] 143 mmol/L Normal 136-145 [facility] Comment on above: Performed By: #### L IVER, BMP, LIPID #### [facility] [address], [place] [address] Dr. Sulema Blair Urea nitrogen [Mass/Vol] 16.0 mg/dL Normal 7.0-18.0 [facility] Comment on above: Performed By: #### L IVER, BMP, LIPID #### [facility] [address], [place] [address] Dr. Sulema Blair Urea nitrogen/Creatinine [Mass ratio] 11.0 mg/mg Normal [facility] Comment on above: Performed By: #### L IVER, BMP, LIPID #### [facility] [address], [place] [address] Dr. Sulema Blair Vital Signs Date Time Vital Sign Value Performing Clinician Rafaeli lity 06-23-2024 13:27-0500 Body mass index (BMI) [Ratio] 27.12 kg/m2 [employer] Work Phone: [facility] [employer] 06-23-2024 13:27-0500 Body weight 85.73 kg [employer] Work Phone: [facility] 06-23-2024 13:27-0500 Diastolic blood pressure 88 mm[Hg] [facility] Work Phone: [facility] 06-23-2024 13:27-0500 Heart rate 94 /min [employer] DO Work Phone: [facility] [employer] 06-23-2024 13:27-0500 SaO2% (BldA) [Mass fraction] 98 % [facility] Work Phone: [facility] 06-23-2024 13:27-0500 Systolic blood pressure 150 mm[Hg] [employer] Work Phone: [facility] 06-14-2024 13:17-0500 Body height 177.8 cm Jorge Luis Malik MD Work Phone: [facility] 06-14-2024 13:17-0500 Body mass index (BMI) [Ratio] 27.12 kg/m2 Jorge Luis Malik MD Work Phone: [facility] 06-14-2024 13:17-0500 Body temperature 97.11 [degF] Jorge Luis Malik MD Work Phone: [facility] 06-14-2024 13:17-0500 Body weight 85.73 kg Jorge Luis Malik MD Work Phone: [facility] 06-14-2024 13:17-0500 Diastolic blood pressure 68 mm[Hg] Jorge Luis Malik MD Work Phone: [facility] 06-14-2024 13:17-0500 Heart rate 97 /min Jorge Luis Malik MD Work Phone: [facility] 06-14-2024 13:17-0500 Respiratory rate 20 /min Jorge Luis Malik MD Work Phone: [facility] 06-14-2024 13:17-0500 SaO2% (BldA) [Mass fraction] 99 % Jorge Luis Malik MD Work Phone: [facility] 06-14-2024 13:17-0500 Systolic blood pressure 136 mm[Hg] Jorge Luis Malik MD Work Phone: [facility] 05-17-2024 10:31-0500 Body height 177.8 cm Jorge Luis Malik MD Work Phone: [facility] 05-17-2024 10:31-0500 Body mass index (BMI) [Ratio] 26.83 kg/m2 Jorge Luis Malik MD Work Phone: [facility] 05-17-2024 10:31-0500 Body temperature 97.3 [degF] Jorge Luis Malik MD Work Phone: [facility] 05-17-2024 10:31-0500 Body weight 84.82 kg Jorge Luis Malik MD Work Phone: [facility] 05-17-2024 10:31-0500 Diastolic blood pressure 68 mm[Hg] Jorge Luis Malik MD Work Phone: [facility] 05-17-2024 10:31-0500 Heart rate 104 /min Jorge Luis Malik MD Work Phone: [facility] 05-17-2024 10:31-0500 Respiratory rate 18 /min Jorge Luis Malik MD Work Phone: [facility] 05-17-2024 10:31-0500 SaO2% (BldA) [Mass fraction] 98 % Jorge Luis Malik MD Work Phone: [facility] 05-17-2024 10:31-0500 Systolic blood pressure 118 mm[Hg] Jorge Luis Malik MD Work Phone: [facility] Encounters Encounter Date Encounter Type Care Provider Facility Start: 07-05-2024 ambulatory JORGE LUIS MALIK Facility:[facility] [place] Start: 06-23-2024 End: 06-23-2024 Bamboo flowsheet Paul Robledo DO Work Phone: [facility] Start: 06-23-2024 End: 06-23-2024 Bamboo flowsheet Paul Robledo DO Work Phone: [facility] Start: 06-23-2024 End: 06-23-2024 Office outpatient new 45 minutes Paul Robledo DO Work Phone: [facility] Comment on above: Post herpetic neural kevyn (CMS/HCC) (Primary Dx) Start: 06-15-2024 ambulatory JORGE LUIS MALIK Facility:[facility] [place] Start: 06-14-2024 End: 06-14-2024 Bamboo flowsheet Jorge Luis Malik MD Work Phone: [facility] Start: 06-14-2024 End: 06-14-2024 Bamboo flowsheet Jorge Luis Malik MD Work Phone: [facility] Start: 06-14-2024 End: 06-14-2024 Office outpatient visit 15 minutes Jorge Luis Malik MD Work Phone: [facility] Comment on above: Gross hematuria ([place] alvares Dx) Start: 06-14-2024 End: 06-14-2024 ambulatory JORGE LUIS MALIK Not Available Start: 05-24-2024 End: 05-24-2024 Clinisync Result Encounter Jorge Luis Malik MD Work Phone: [facility] Unsolicited Start: 05-24-2024 End: 05-24-2024 Clinisync Result Encounter Jorge Luis Malik MD Work Phone: [facility] Unsolicited Start: 05-17-2024 End: 05-17-2024 Bamboo flowsheet Jorge Luis Malik MD Work Phone: [facility] Start: 05-17-2024 End: 05-17-2024 Bamboo flowsheet Jorge Luis Malik MD Work Phone: [facility] Start: 05-17-2024 End: 05-17-2024 Office outpatient visit 15 minutes Jorge Luis Malik MD Work Phone: [facility] Comment on above: COPD exacerbation (C MS/HCC) (Primary Dx); Type 2 diabetes mellitus with hyperglycemia, without long-term current use of insulin (CMS/HCC); Dyslipidemia (CMS/HCC); Adult hypothyroidism (CMS/HCC); Encounter for screening prostate specific antigen (PSA) measurement; Encounter for long-term (current) use of medications Start: 05-17-2024 End: 05-17-2024 ambulatory JORGE LUIS MALIK Not Available Start: 01-20-2024 End: 01-20-2024 Clinisync Result Encounter Jorge Luis Malik MD Work Phone: [facility] Unsolicited Start: 01-20-2024 End: 01-20-2024 Clinisync Result Encounter Jorge Luis Malik MD Work Phone: [facility] Unsolicited Start: 01-06-2024 End: 01-06-2024 ambulatory JORGE LUIS MALIK Not Available Start: 12-02-2023 End: 12-02-2023 ambulatory JORGE LUIS MALIK Not Available Start: 07-07-2023 End: 07-07-2023 ambulatory JORGE LUIS MALIK Not Available Start: 09-16-2022 End: 09-17-[address] JORGE LUIS MALIK Facility:[facility] Start: 02-21-2022 End: 02-22-[address] JORGE LUIS MALIK Facility:[facility] Start: 02-12-2022 End: 02-13-[address] JORGE LUIS MALIK Facility:[facility] Procedures Date Procedure Procedure Detail Performing Clinician Start: 05-24-2024 ALL CBC WITH AUTO DIFF Jorge Luis Malik MD Work Phone: Start: 01-20-2024 MLR HEMOGLOBIN A1C Jorge Luis Malik MD Work Phone: Start: 02-12-[address] JORGE LUIS ORTIZ Comment on above: Performed By: #### P [facility] #### [facility] [address] [place] [address] Dr. Sulema Blair Plan of Treatment Date Care Activity Detail Author Start: 11-02-2025 Glaucoma screening Diabetes: R etinopathy Screening [facility] Start: 05-24-2025 Urine screening for protein Diabetes: Urine Protein Screening [facility] Start: 07-28-2024 End: 07-28-2024 Patient encounter procedure 07/28/2024 3:00 PM EST Office Visit [facility] [address] [place] [phone] Layla Rodriguez NP [address] [place] [phone] [facility] Start: 07-22-2024 Hemoglobin A1c measurement Diabetes: Hemoglobin A1C [facility] Start: 07-07-2024 End: 07-07-2024 Patient encounter procedure 07/07/2024 1:30 PM EST [facility] [address] [place] [phone] Jorge Luis Malik MD [address] [place] [phone] [facility] Start: 06-23-2024 End: 06-23-2024 Patient [address] [facility] Comment on above: Arrived Start: 06-14-2024 End: 06-14-2025 Bacteria identified in Urine by Culture Urine culture (clean catch) Microbiology Routine Gross hematuria Expected: 06/14/2024 (Approximate), Expires: 06/14/2025 [facility] Work Phone: Comment on above: Expected: 06/14/2024 (Approximate), Expires: 06/14/2025 Start: 06-14-2024 End: 06-14-2025 Urinalysis complete panel - Urine Urinalysis with reflex microscopic (clean catch) Lab Routine Gross hematuria Expected: 06/14/2024 (Approximate), Expires: 06/14/2025 [facility] Comment on above: Expected: 06/14/2024 (Approximate), Expires: 06/14/2025 Start: 06-14-2024 End: 06-14-2024 Patient encounter procedure 06/14/2024 1:15 PM EST Office Visit [facility] [address] [place] [phone] Jorge Luis Malik MD [address] [place] [phone] Arrived [facility] Comment on above: Arrived Start: 05-17-2024 End: 05-17-2025 Basic metabolic 1998 panel - Serum or Plasma Basic metabolic panel Lab Routine Encounter for long-term (current) use of medications Expected: 05/17/2024 (Approximate), Expires: 05/17/2025 [facility] Comment on above: Expected: 05/17/2024 (Approximate), Expires: 05/17/2025 Start: 05-17-2024 End: 05-17-2025 CBC W Auto Differential panel - Blood CBC and differential Lab Routine Encounter for long-term (current) use of medications Expected: 05/17/2024 (Approximate), Expires: 05/17/2025 [facility] Comment on above: Expected: 05/17/2024 (Approximate), Expires: 05/17/2025 Start: 05-17-2024 End: 05-17-2025 Hemoglobin A1c/Hemoglobin.total in Blood Hemoglobin A1c Lab Routine Type 2 diabetes mellitus with hyperglycemia, without long-term current use of insulin (CMS/HCC) Expected: 05/17/2024 (Approximate), Expires: 05/17/2025 [facility] Comment on above: Expected: 05/17/2024 (Approximate), Expires: 05/17/2025 Start: 05-17-2024 End: 05-17-2025 Hepatic function 2000 panel - Serum or Plasma Hepatic function panel Lab Routine Encounter for long-term (current) use of medications Expected: 05/17/2024 (Approximate), Expires: 05/17/2025 [facility] Comment on above: Expected: 05/17/2024 (Approximate), Expires: 05/17/2025 Start: 05-17-2024 End: 05-17-2025 Lipid 1996 panel - Serum or Plasma Lipid panel Lab Routine Dyslipidemia ([facility]/HCC) Expected: 05/17/2024 (Approximate), Expires: 05/17/2025 [facility] Comment on above: Expected: 05/17/2024 (Approximate), Expires: 05/17/2025 Start: 05-17-2024 End: 05-17-2025 Microalbumin/Creatinine panel in random Urine Microalbumin / creatinine, urine ratio Lab Routine Type 2 diabetes mellitus with hyperglycemia, without long-term current use of insulin (CMS/HCC) Expected: 05/17/2024 (Approximate), Expires: 05/17/2025 [facility] Work Phone: Comment on above: Expected: 05/17/2024 (Approximate), Expires: 05/17/2025 Start: 05-17-2024 End: 05-17-2025 Prostate specific Ag [Mass/volume] in Serum or Plasma PSA Lab Routine Encounter for screening prostate specific antigen (PSA) measurement Expected: 05/17/2024 (Approximate), Expires: 05/17/2025 [facility] Comment on above: Expected: 05/17/2024 (Approximate), Expires: 05/17/2025 Start: 05-17-2024 End: 05-17-2025 Thyrotropin [Units/volume] in Serum or Plasma TSH Lab Routine Adult hypothyroidism ([facility]/HCC) Expected: 05/17/2024 (Approximate), Expires: 05/17/2025 [facility] Comment on above: Expected: 05/17/2024 (Approximate), Expires: 05/17/2025 Start: 05-17-2024 End: 05-17-2025 Thyroxine (T4) free [Mass/volume] in Serum or Plasma T4, free Lab Routine Adult hypothyroidism (CMS/HCC) Expected: 05/17/2024 (Approximate), Expires: 05/17/2025 [facility] Comment on above: Expected: 05/17/2024 (Approximate), Expires: 05/17/2025 Start: 05-17-2024 End: 05-17-2024 Patient encounter procedure 05/17/2024 10:15 AM EST Office Visit [facility] [address] [place] [phone] Jorge Luis Malik MD [address] [place] [phone] Arrived [facility] Comment on above: Arrived Start: 05-02-2024 Urine screening for protein Diabetes: Urine Protein Screening [facility] Start: 02-01-2024 Influenza vaccination Influenza Vacc ine (#1) [facility] Start: 11-01-2023 Hemoglobin A1c measurement Diabetes: Hemoglobin A1C [facility] Start: 1940 Medicare Annual Wellness (AWV) Medicare Annual Wellness (AWV) [facility] Immunizations Immunization Date Immunization Notes Care Provider Fa cility 03-07-2023 influenza virus vacc ine, unspecified formulation Jorge Luis Malik MD Work Phone: [facility] Payers Date Payer Category Payer Medicare [employer] [id number] 2021-Present [address] [place] [address] [id number] 2021 Medicare (Managed Care) [employer] [id number] 1959 Unknown [id number] 1942 Unknown [id number] 1942 Unknown [id number] 1942 Unknown [id number] 1942 Unknown [id number] 1942 Unknown [id number] 1942 Unknown [id number] 1942 Unknown [id number] 1942 Unknown [id number] Social History Date Type Detail Facility Start: 07-07-2023 End: 06-23-2024 Tobacco smoking status MSIS Ex-smoker [facility] Start: [birth year]-02-1949 End: 06-02-1968 History of tobacco use Current smoker [facility] Start: 06-02-1949 End: 06-02-1968 History of tobacco use Cigarette Smoker [facility] Start: 07-07-2023 End: 06-23-2024 Cigarettes smoked current (pack per day) - Reported 1 [facility] Start: 07-07-2023 End: 06-23-2024 Tobacco use and exposure Smokeless tobacco non-user [facility] Start: 07-07-2023 End: 01-06-2024 Tobacco use panel [facility] Start: 1940 Sex assigned at Not on file [facility] Medical Equipment Procedure Code Equipment Code Equipment Origin al Text Equipment Identifier Dates USE ONCE A DAY [id number] Start: 12-31-2023 History of Present illness Narrative 06-23-2024 Paul Robledo, DO - 06/23/2024 1:30 PM EST Note Date & Type Note Facility 06-23-2024 History of Presen t illness Narrative Images from the original note were not included. Chief complaint: Post herpetic neuralgia Subjective Jam Espinal Jr., 84 y.o., male Patient presents today fro a neurologic consult at the request of Dr. Hassan for postherpetic nervous system involvement. Patient is accompanied by his , Carissa. Patient states he has shingles in his head and behind his left eye. He states he has had this for over one year. Patient is seeing his PCP for this. He is not currently on any anti viral medication and is unsure if he has been at all for this. He reports itching and intermittent pain. He reports dizziness, imbalance, visual disturbances in the left eye and memory issues. He denies any headaches or falls. Review of Systems Constitutional: Negative for appetite change, fatigue and fever. Eyes: Positive for visual disturbance. Respiratory: Negative for cough, shortness of breath and wheezing. Cardiovascular: Negative for chest pain, palpitations and leg swelling. Gastrointestinal: Negative for abdominal pain, constipation, diarrhea and nausea. Musculoskeletal: Negative for arthralgias, gait problem and myalgias. Neurological: Positive for dizziness and light-headedness. Negative for tremors, numbness and headaches. 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 weight: 189 lb Neurologic exam: Mental status: Awake, alert to person, place and time. Recent and remote memory are intact. Language is fluent without aphasia. Attention and concentration are normal. Fund of knowledge is appropriate for level of education. Cranial nerves: CN II: Visual acuity is normal. Visual bar[place]ona full to confrontation. CN III, IV, : pupils equal round and reactive to light. Extraocular movements intact. No ptosis present. CN V: Facial sensation is normal. CN VII: Full and symmetric facial movement. CN VIII: Hearing is normal to finger rub bilaterally: CN IX and X: Palate elevates symmetrically. CN XI: Shoulder shrug is normal bilaterally. CN XII: Tongue is midline without atrophy or fasciculation. Motor: RUE Strength deltoid, , biceps , triceps , wrist extensors , wrist flexor , charge weigher strength 5/5. LUE Strength deltoid , biceps , triceps , wrist extensors , wrist flexor , charge weigher strength 5/5. RLE Strength illopsoas, quadriceps, tibialis anterior, and gastrocnemius strength 5/5. LLE Strength illopsoas, quadriceps, tibialis anterior, and gastrocnemius strength 5/5. Normal tone x4 extremities. Bulk is normal. Sensory: Sensation is intact to light touch throughout Four extremities. Reflexes: RUE biceps reflex 1+ brachioradialis reflex 2+ . LUE biceps reflex 1+ brachioradialis reflex 2+ . RLE knee reflex 0 . LLE knee reflex 0 . Gamez's sign negative. Coordination: [id number] testing and rapid alternating movements are normal Gait: Normal Review and summary of old records: CT of the brain without contrast on 08/08/2014: No acute intracranial abnormality. Age-related atrophy with compensatory ventricular enlargement. Chronic microvascular ischemic disease noted. Assessment/Plan Diagnoses and all orders for this visit: Post herpetic neuralgia (CMS/HCC) It is my impression that the patient has post herpetic neuralgia. This seems to be in the location of the V1 distribution on the left for the most part. Initial outbreak was greater than 18 months ago. Patient was previously on gabapentin but at higher dosages this seems to have caused negative cognitive effects per the patient's . Neurological examination unremarkable otherwise today. Plan: Restart gabapentin at a lower dose of 100 mg p.o. t.I.d.. OARRS Review indicates the patient was previously on 300 mg t.I.d. with most recent prescription filled in April of 2023. Patient also on oxcarbazepine 300 t.I.d. We did discuss side effects and drug drug interactions associated with this medication in the use of others such as central nervous system depressant effects. As these symptoms are extremely bothersome for the patient, Patient understands these risks and so does the patient's and they wished to proceed with treatment. Patient's provide additional history. They wished to proceed with treatment. Pt has been fully educated on their diagnosis, lab results, and treatment options documented in this encounter [facility] History of Present illness Narrative 06-14-2024 Jorge Luis Malik MD - 06/14/2024 1:38 PM ESTJorge Luis Malik MD - 06/14/2024 1:15 PM EST Note Date & Type Note Facility 06-14-2024 History of Presen t illness Narrative Associated Problem(s): Gross hematuria Reports blood in urine off and on of unclear etiology. Check urine and refer to urology for possible cystoscopy. Images from the original note were not included. Subjective Patient ID: Jam Espinal Jr. is a 84 y.o. male who presents for Follow-up (labs) and Blood in Urine (Only seeing blood when first uses restroom in am). C/o blood in urine off and on for several weeks. Notice when first get up in am to void. Urine red and appears to have blood. Notice slough and seems like particles in urine but will dissolve. No pain or burning with urination. No change in stream and no urgency or incontinence. Noticed about 3 times in past month and not daily. Not on blood thinners and denies using NSAIDs. Seen by urology years ago and prior TURP. Review of Systems Constitutional: Negative for fatigue. Respiratory: Negative for cough, shortness of breath and wheezing. Cardiovascular: Negative for chest pain and palpitations. Gastrointestinal: Negative for abdominal pain, diarrhea, nausea and vomiting. Genitourinary: Negative for dysuria. Objective Physical Exam Constitutional: General: He is not in acute distress. Appearance: Normal appearance. HENT: Head: Normocephalic. Right Ear: Tympanic membrane and ear canal normal. Left Ear: Tympanic membrane and ear canal normal. Eyes: Extraocular Movements: Extraocular movements intact. Pupils: Pupils are equal, round, and reactive to light. Cardiovascular: Rate and Rhythm: Normal rate and regular rhythm. Heart sounds: No murmur heard. No friction rub. No gallop. Pulmonary: Breath sounds: Normal breath sounds. No wheezing, rhonchi or rales. Abdominal: General: Bowel sounds are normal. There is no distension. Palpations: Abdomen is soft. Tenderness: There is no abdominal tenderness. There is no guarding or rebound. Musculoskeletal: Left lower leg: No edema. Neurological: Mental Status: He is alert. Assessment/Plan Problem List Items Addressed This Visit Gross hematuria - Primary Reports blood in urine off and on of unclear etiology. Check urine and refer to urology for possible cystoscopy. Relevant Orders Urine culture (clean catch) Urinalysis with reflex microscopic (clean catch) Ambulatory referral to Urology documented in this encounter [facility] History of Present illness Narrative 05-17-2024 Jorge Luis Malik MD - 05/17/2024 11:08 AM Yo Malik MD - 05/17/2024 11:08 AM Yo Malik MD - 05/17/2024 10:15 AM EST Note Date & Type Note Facility 05-17-2024 History of Presen t illness Narrative Associated Problem(s): Type 2 diabetes mellitus with hyperglycemia ([facility]/HCC) Reports BS stable and due for A1C. Stick to ADA diet and limit carbs. Associated Problem(s): COPD exacerbation ([facility]) Worsening SOB and treat with prednisone and levaquin. Use albuterol every 4 hours x 48 then PRN. Images from the original note were not included. Subjective Patient ID: Jam Espinal Jr. is a 84 y.o. male who presents for Shortness of Breath. C/o worsening SOB over the past few weeks. Increased SOB with minimal exertion. Hard to stay active around the house due to SOB. Frequent cough dry and nonproductive. Afebrile. Mild congestion. No edema. No worsening of symptoms when laying down. Chest tight and feels like can't take deep breath. Using albuterol PRN and helps. Reports BS stable around 150-180. Tries to eat well and stick to ADA diet. Review of Systems Constitutional: Negative for fatigue. Respiratory: Positive for cough and shortness of breath. Negative for wheezing. Cardiovascular: Negative for chest pain and palpitations. Gastrointestinal: Negative for abdominal pain, diarrhea, nausea and vomiting. Genitourinary: Negative for dysuria. Objective Physical Exam Constitutional: General: He is not in acute distress. Appearance: Normal appearance. HENT: Head: Normocephalic. Right Ear: Tympanic membrane and ear canal normal. Left Ear: Tympanic membrane and ear canal normal. Eyes: Extraocular Movements: Extraocular movements intact. Pupils: Pupils are equal, round, and reactive to light. Cardiovascular: Rate and Rhythm: Normal rate and regular rhythm. Heart sounds: No murmur heard. No friction rub. No gallop. Pulmonary: Breath sounds: Normal breath sounds. No wheezing, rhonchi or rales. Abdominal: General: Bowel sounds are normal. There is no distension. Palpations: Abdomen is soft. Tenderness: There is no abdominal tenderness. There is no guarding or rebound. Musculoskeletal: Left lower leg: No edema. Neurological: Mental Status: He is alert. Assessment/Plan Problem List Items Addressed This Visit COPD exacerbation ([facility]/HCC) - Primary Worsening SOB and treat with prednisone and levaquin. Use albuterol every 4 hours x 48 then PRN. Relevant Medications levoFLOXacin (Levaquin) 750 MG tablet predniSONE (Deltasone) 50 MG tablet Dyslipidemia ([facility]/HCC) Relevant Orders Lipid panel Adult hypothyroidism ([facility]) Relevant Orders TSH T4, free Type 2 diabetes mellitus with hyperglycemia ([facility]) Reports BS stable and due for A1C. Stick to ADA diet and limit carbs. Relevant Orders Microalbumin / creatinine, urine ratio Hemoglobin A1c Encounter for long-term (current) use of medications Relevant Orders Basic metabolic panel CBC and differential Hepatic function panel Encounter for screening prostate specific antigen (PSA) measurement Relevant Orders PSA documented in this encounter [facility] Evaluation note Note Date & Type Note Facility Evaluation note Diagnosis Type 2 diabetes mellitus with hyperglycemia, without long-term current use of insulin ([facility])- Primary Post herpetic neuralgia ([facility]) 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 Generalized anxiety disorder ([facility]) Generalized anxiety disorder Chronic obstructive pulmonary disease, unspecified COPD type ([facility]) Gastroesophageal reflux disease without esophagitis Esophageal reflux Lumbar spondylosis- Primary Lumbosacral spondylosis without myelopathy Post herpetic neuralgia ([facility]) 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 Type 2 diabetes mellitus with hyperglycemia, without long-term current use of insulin ([facility])- Primary Lumbar spondylosis Lumbosacral spondylosis without myelopathy Chronic obstructive pulmonary disease, unspecified COPD type ([facility]) Generalized anxiety disorder ([facility]/HCC) Generalized anxiety disorder Post herpetic neuralgia ([facility]) 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 Gastroesophageal reflux disease without esophagitis Esophageal reflux COPD exacerbation ([facility])- Primary Obstructive chronic bronchitis with exacerbation Type 2 diabetes mellitus with hyperglycemia, without long-term current use of insulin ([facility]) Dyslipidemia ([facility]) Other and unspecified hyperlipidemia Adult hypothyroidism ([facility]) Unspecified hypothyroidism Encounter for screening prostate specific antigen (PSA) measurement Encounter for long-term (current) use of medications Encounter for long-term (current) use of other medications documented in this encounter [facility] Evaluation note Note Date & Type Note Facility Evaluation note Diagnosis Type 2 diabetes mellitus with hyperglycemia, without long-term current use of insulin ([facility])- Primary Post herpetic neuralgia ([facility]) 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 Generalized anxiety disorder ([facility]) Generalized anxiety disorder Chronic obstructive pulmonary disease, unspecified COPD type ([facility]) Gastroesophageal reflux disease without esophagitis Esophageal reflux Lumbar spondylosis- Primary Lumbosacral spondylosis without myelopathy Post herpetic neuralgia ([facility]) 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 Type 2 diabetes mellitus with hyperglycemia, without long-term current use of insulin ([facility])- Primary Lumbar spondylosis Lumbosacral spondylosis without myelopathy Chronic obstructive pulmonary disease, unspecified COPD type ([facility]) Generalized anxiety disorder ([facility]) Generalized anxiety disorder Post herpetic neuralgia ([facility]) 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 Gastroesophageal reflux disease without esophagitis Esophageal reflux COPD exacerbation ([facility])- Primary Obstructive chronic bronchitis with exacerbation Type 2 diabetes mellitus with hyperglycemia, without long-term current use of insulin ([facility]) Dyslipidemia ([facility]) Other and unspecified hyperlipidemia Adult hypothyroidism ([facility]) Unspecified hypothyroidism Encounter for screening prostate specific antigen (PSA) measurement Encounter for long-term (current) use of medications Encounter for long-term (current) use of other medications Gross hematuria- Primary documented in this encounter [facility] Evaluation note Note Date & Type Note Facility Evaluation note Diagnosis Type 2 diabetes mellitus with hyperglycemia, without long-term current use of insulin ([facility])- Primary Post herpetic neuralgia ([facility]) 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 Generalized anxiety disorder ([facility]) Generalized anxiety disorder Chronic obstructive pulmonary disease, unspecified COPD type ([facility]) Gastroesophageal reflux disease without esophagitis Esophageal reflux Lumbar spondylosis- Primary Lumbosacral spondylosis without myelopathy Post herpetic neuralgia ([facility]) 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 Type 2 diabetes mellitus with hyperglycemia, without long-term current use of insulin ([facility])- Primary Lumbar spondylosis Lumbosacral spondylosis without myelopathy Chronic obstructive pulmonary disease, unspecified COPD type ([facility]/HCC) Generalized anxiety disorder ([facility]/HCC) Generalized anxiety disorder Post herpetic neuralgia (CMS/HCC) 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 Gastroesophageal reflux disease without esophagitis Esophageal reflux COPD exacerbation ([facility])- Primary Obstructive chronic bronchitis with exacerbation Type 2 diabetes mellitus with hyperglycemia, without long-term current use of insulin ([facility]) Dyslipidemia ([facility]/HCC) Other and unspecified hyperlipidemia Adult hypothyroidism ([facility]) Unspecified hypothyroidism Encounter for screening prostate specific antigen (PSA) measurement Encounter for long-term (current) use of medications Encounter for long-term (current) use of other medications Gross hematuria- Primary Post herpetic neuralgia ([facility]/HCC)- Primary 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 documented in this encounter [facility] Reason for visit Narrative Consultation (Routine) - Closed Note Date & Type Note Facility Reason for visit Narrative Specialty Diagnoses / Procedures Referred By Contac t Referred To Contact Neurology Diagnoses Other postherpetic nervous system involvement ([facility]) Procedures [place] OFFICE/OUTPATIENT [facility] Thomas Hassan MD [address] [place] [address] Phone: tel: fax: Alessandro Abdi MD [address] [place] [address] Phone: tel: fax: Referral ID Status Reason Start Date Expiration Date V isits Requested Visits Authorized [id number] Closed Consult and Treat 04/23/2024 10/20/2024 1 1 [facility] Summary Purpose Family History No Family History Records FoundNo Family History Records FoundNo Family History Records Found Advance Directives No Advanced Directives Records FoundNo Advanced Directives Records FoundNo Advanced Directives Records Found Additional Source Comments (unrecognized sect ion and content) No Status Records FoundNo Status Records FoundNo Status Records Found INFORMATION SOURCE (unrecogn ized section and content) DATE CREATED AUTHOR 09/19/2022 [facility] DATE CREATED AUTHOR AUTHOR'S ORGANIZ ATION 06/17/2024 [facility] EPIC DATE CREATED AUTHOR AUTHOR'S ORGANIZ ATION 06/18/2024 [facility] Care Teams (unrecognized sec tion and content) Wood Type Cutter Relationship Specialty Start Date End Date Jorge Luis Malik MD [address] [place] [phone] PCP - General Family Medicine 12/02/23 Jorge Luis Malik MD [address] [place] [phone] PCP - Brittany SORIA 04/02/24 Thomas Hassan MD [address] [place] [phone] Referring Physician 04/23/24 Wood Type Cutter Relationship Specialty Start Date End Date Jorge Luis Malik MD [address] [place] [phone] PCP - General Family Medicine 12/02/23 Jorge Luis Malik MD [address] [place] [phone] PCP - Brittany SORIA 04/02/24 Thomas Hassan MD [address] [place] [address] Referring Physician 04/23/24 Wood Type Cutter Relationship Specialty Start Date End Date Jorge Luis Malik MD [address] [place] [phone] PCP - General Family Medicine 12/02/23 Wood Type Cutter Relationship Specialty Start Date End Date Jorge Luis Malik MD [address] [place] [phone] PCP - General Family Medicine 12/02/23 Jorge Luis Malik MD [address] [place] [phone] PCP - [place]any [place] 04/02/24 Thomas Hassan MD [address] [place] [phone] Referring Physician 04/23/24 Wood Type Cutter Relationship Specialty Start Date End Date Jorge Luis Malik MD [address] [place] [phone] PCP - General Family Medicine 12/02/23 Jorge Luis Malik MD [address] [place] [phone] PCP - [place]any [place] 04/02/24 Thomas Hassan MD [address] [place] [phone] Referring Physician 04/23/24 Wood Type Cutter Relationship Specialty Start Date End Date Jorge Luis Malik MD [address] [place] [phone] PCP - General Family Medicine 12/02/23 Jorge Luis Malik MD [address] [place] [phone] PCP - [place]any [place] 04/02/24 Thomas Hassan MD [address] [place] [phone] Referring Physician 04/23/24 Wood Type Cutter Relationship Specialty Start Date End Date Jorge Luis Malik MD [address] [place] [phone] PCP - General Family Medicine 12/02/23 Jorge Luis Malik MD [address] [place] [phone] PCP - Brittany SORIA 04/02/24 Thomas Hassan MD [address] [place] [address] Referring Physician 04/23/24 Wood Type Cutter Relationship Specialty Start Date End Date Jorge Luis Malik MD [address] [place] [phone] PCP - General [facility] Medicine 12/02/23 Jorge Luis Malik MD [address] [place] [phone] PCP - Brittany SORIA 04/02/24 Thomas Hassan MD [address] [place] [phone] Referring Physician 04/23/24 Reason for Visit (unrecogniz ed section and content) Reason Comments Shortness of Breath Reason Comments Follow-up labs Blood in Urine Only seeing blood wh en first uses restroom in am FOR RECORDS PERTAINING TO PATIENTS WHO ARE [...] BE BASED ON THE PRIMARY CLINICAL RECORDS. [facility] [employer] [facility] provides no warranty or guarantee of the accuracy or completeness of information in this document.
[2024-06-24 10:56] LABS: Bilirubin Urine NEGATIVE (NEGATIVE); Blood Urine LARGE (NEGATIVE); Clarity Urine CLEAR (CLEAR); Color Urine LT. YELLOW (YELLOW); Glucose Urine UA NEGATIVE (NEGATIVE); Ketones Urine NEGATIVE (NEGATIVE); Leukocyte Esterase Urine NEGATIVE (NEGATIVE); Nitrite Urine NEGATIVE (NEGATIVE); Protein Urine NEGATIVE (NEG/TRACE); Urobilinogen Urine 0.2 EU/dL (0.2-1.0); pH Urine 5.5 (5.0-9.0)
[2024-06-24 11:04] LABS: Urine Microscopic Indicated YES
[2024-06-24 11:09] LABS: Bacteria Urine TRACE #/HPF (NONE SEEN); Cast Seen? NONE SEEN #/LPF (NONE SEEN); Crystals Seen? None Seen #/HPF (None Seen); Mucus Urine NONE SEEN (NONE SEEN); RBC Urine 50-75 #/HPF (0-2); Squamous Epithelial Cell Urine RARE #/LPF (NONE/RARE); Urine Culture Indicated ALREADY ORDERED; WBC Urine NONE SEEN #/HPF (NONE SEEN)
== END 2024-06-24 10:31 | disposition home or self-care (01) ==
LOC: LAB 10:31
PROVIDERS: PCP Family Medicine; Visit Provider Family Medicine
DX: R31.0 Gross hematuria (principal)
CPT/HCPCS: 81001; 87086

== ENCOUNTER 2024-07-12 13:54 | Outpatient (OUT) | payer MEDICARE, SELFPAY ==
--- OUTSIDE RECORDS SUMMARY | 2024-07-12 14:07 | XMS_ITS | CCD ---
Author Organization [facility] Care Team Providers Care Yarn Worker Name Role Phone KING, DR JORGE LUIS [...] NADERER, DR JORGE LUIS Packer Attending Unavailable Jorge Luis Malik MD Primary Care Provider [phone] Mo QUINTANA, Yajaira Unavailable Jorge Luis Malik MD Unavailable JORGE LUIS MALIK Primary Care Physician [phone] Jayson LEMUS Attending Unavailable LEMUS, Jayson Mclain Attending Unavailable NADERER, JORGE LUIS Referring Unavailable LEMUS, Jayson Mclain Admitting Unavailable LEMUSJayson Attending Unavailable MEENA, ROBERTO Attending Unavailable DERODES, YAJAIRA Referring Unavailable NADERER, JORGE LUIS Attending Unavailable NADERER, JORGE LUIS Attending Unavailable NADERERayne, JORGE LUIS Attending Unavailable NADERER, JORGE LUIS Attending Unavailable NADERERayne, JORGE LUIS Attending Unavailable Allergies Allergy Classification Reported Allergen(s) Allergy Type Date of Onset Reaction(s) Facility (2 sources) Codeine; Translations: [codeine] Drug Allergy 2 [facility] Repository (17 sources) Codeine; Translations: [codeine] Drug Allergy 4 Lightheadedness (finding) [facility] Medications Current Medications Medication Drug Class(es) Dates Sig (Normalized) Sig (Original) acetaminophen 500 mg oral tablet (17 sources) Start: 07-05-2024 take 500 mg by mouth three times daily Tylenol 500 mg, Oral, TID, Refills(s) 0 Start Date: 07/05/24 Status: Ordered acetaminophen (T ylenol) 325 MG tablet Take by mouth Active Albuterol (20 sources) beta2-Adrenergic Agonist Start: 07-05-2024 albut suzette See Instructions, Refills(s) 0 Start Date: 07/05/24 Status: Ordered albuterol (2.5 M G/3ML) 0.083% nebulizer solution Take 2.5 mg by nebulization every 4 (four) hours if needed for wheezing Active take 2 puff(s) by in halation every four hours for wheezing albuterol HFA 90 mcg/act inhaler Inhale 2 puffs every 4 (four) hours if needed for wheezing Active ALPRAZolam 0.25 mg oral tablet (15 sources) Benzodiazepine take 1 tablet by mouth three times daily as needed for anxiety ALPRAZolam (Xanax) 0.25 MG tablet Take 0.25 mg by mouth 3 (three) times a day as needed for anxiety Active gabapentin 100 mg oral capsule (8 sources) Anti-epileptic Agent Start: 06-23-19 End: 06-23-19 take 1 capsule by mouth in the [...] 06/23/2025 Active glipiZIDE 10 mg oral tablet (17 sources) Sulfonylurea Start: 10-09-19 take 1 tablet by mouth once daily glipiZIDE (Glucotrol) 10 MG tablet Indications: Type 2 diabetes mellitus with hyperglycemia, without long-term current use of insulin (CMS/HCC) Take 1 tablet (10 mg) by mouth Daily 90 tablet 3 10/09/2023 Active levoFLOXacin 750 mg oral tablet (3 sources) Quinolone Antimicrobial Start: 05-17-20 24 End: 05-24-20 24 take 1 tablet by mouth once daily levoFLOXacin (Levaquin) 750 MG tablet Indications: COPD exacerbation (CMS/HCC) Take 1 tablet (750 mg) by mouth Daily for 7 days 7 tablet 05/17/2024 05/24/2024 Active metFORMIN hydrochloride 500 mg oral tablet (17 sources) Biguanide Start: 07-05-19 take 500 mg by mouth once daily metformin 500 mg, Oral, Daily, Refills(s) 0 Start Date: 07/05/24 Status: Ordered Start: 05-11-2024 take 1 tablet by xenia th once [...] 05/17/2024 Discontinued olopatadine 2 mg/ml ophthalmic solution (13 sources) Histamine-1 Receptor Inhibitor Start: 03-26-2024 take 1 drop(s) into the eye(s) in the morning [facility] Olopatadine HCl 0.2 % ophthalmic solution Administer 1 drop into the left eye in the morning and 1 drop before bedtime. 03/26/2024 Active omeprazole 20 mg oral tablet (17 sources) Proton Pump Inhibitor Start: 07-05-2024 take 20 mg by mouth once daily omeprazole 20 mg, Oral, Daily, Refills(s) 0 Start Date: 07/05/24 Status: Ordered take 1 capsule by mouth before m ealtime omeprazole (PriLOSEC) [address] capsule Take 20 mg by mouth in the morning. Take before meals. Do not crush or chew.. Active OXcarbazepine 300 mg oral tablet (17 sources) Anti-epileptic Agent Start: 03-08-2024 take 1 [...] 6 days 6 tablet 05/17/2024 05/23/2024 Active Completed/Discontinued Medications Medication Drug Class(es) Dates Sig (Normalized) Sig (Original) ciprofloxacin 500 mg oral tablet (2 sources) Quinolone Antimicrobial Start: 07-05-2024 take 1 tablet by mouth once daily Cipro 500 mg Tab 500 mg = 1 tab(s), Oral, Daily, take one tab day before procedure and one tab after procedure, # 2 tab(s), Refills(s) 0, Pharmacy: [facility]/pharmacy #[id number], 179, cm, 07/05/24 9:09:00 EST, Height/Length Dosing, 85.4, kg, 07/05/24 9:09:00 EST, Weight Dosing Start Date: 07/05/24 Status: Ordered hydrOXYzine hydrochloride 25 mg oral tablet (17 sources) Antihistamine Start: 06-16-2024 End: 07-07-2024 take 1 tablet by mouth four times daily as needed hydrOXYzine HCl (Atarax) 25 MG tablet Indications: Post herpetic neuralgia (CMS/HCC) TAKE 1 TABLET BY MOUTH 4 TIMES A DAY NEEDED FOR ITHCING 360 tablet 1 06/16/2024 07/07/2024 Discontinued Start: 12-30-2023 take 1 tablet by xenia th four times daily as needed hydrOXYzine HCl (Atarax) 25 MG tablet Indications: Post herpetic neuralgia (CMS/HCC) TAKE 1 TABLET BY MOUTH 4 TIMES A DAY NEEDED FOR ITHCING 360 tablet 1 12/30/2023 Active Problems Active Problems Problem Classification Problem Date Documented Date Episodic/Chronic Anxiety disorders (15 sources) Generalized anxiety disorder; Translations: [Generalized anxiety disorder] Onset: 07-07-2023 07-07-2023 Chronic Chronic obstructive pulmonary disease and bronchiectasis (20 sources) Chronic obstructive pulmonary disease, unspecified; Translations: [Chronic obstructive lung disease] Onset: 02-21-2022 Chronic Diabetes mellitus with complications (20 sources) Type 2 diabetes mellitus with hyperglycemia; Translations: [Hyperglycemia due to type 2 diabetes mellitus] Onset: 09-16-2022 Chronic Disorders of lipid metabolism (20 sources) Hyperlipidemia, unspecified; Translations: [Dyslipidemia] Onset: 02-16-2022 07-07-2023 Chronic Esophageal disorders (15 sources) Gastroesophageal reflux disease without esophagitis; Translations: [Gastro-esophageal reflux disease without esophagitis] Onset: 07-07-2023 07-07-2023 Chronic Genitourinary symptoms and ill-defined conditions (16 sources) Khai hematuria; Translations: [Gross hematuria] Onset: 06-14-2024 06-14-2024 Episodic Hyperplasia of prostate (3 sources) Benign prostatic hypertrophy with outflow obstruction; Translations: [Benign prostatic hyperplasia with lower urinary tract symptoms] Onset: 07-05-2024 Chronic Other aftercare (15 sources) Long-term current use of drug therapy; Translations: [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] Onset: 05-17-2024 05-17-2024 Episodic Other nervous system disorders (4 sources) Drug-induced myopathy; Translations: [Drug-induced myopathy] Onset: 07-07-2024 07-07-2024 Episodic Other screening for suspected conditions (not mental disorders or infectious disease) (17 sources) Encounter for screening for malignant neoplasm of prostate; Translations: [Patient encounter status] Onset: 02-16-2022 05-17-2024 Episodic Spondylosis; intervertebral disc disorders; other back problems (15 sources) Lumbar spondylosis; Translations: [Spondylosis without myelopathy or radiculopathy, lumbar region] Onset: 12-02-2023 12-02-2023 Chronic Thyroid disorders (17 sources) Hypothyroidism; Translations: [Hypothyroidism, unspecified] Onset: 07-07-2023 07-07-2023 Chronic Unclassified (2 sources) Patient encounter status 07-05-2024 Past or Other Problems Problem Classification Problem Date Documented Da te Episodic/Chronic Mood disorders (2 sources) Mood disorders Onset: 07-07-2024 07-07-2024 Other aftercare (1 source) Other [place] [facility] (current) drug therapy; Translations: [OTH ASW/ASUW TACTICAL AIR CONTROLLER CURRENT DRUG THERAPY] Onset: 02-16-2022 Episodic Other circulatory disease (15 sources) Elevated blood-pressure reading without diagnosis of hypertension; Translations: [Elevated blood-pressure reading, without diagnosis of hypertension] Onset: 07-07-2023 Resolved: 05-17-2024 07-07-2023 Episodic Residual codes; unclassified (15 sources) Persistent insomnia; Translations: [Insomnia, unspecified] Onset: 07-07-2023 07-07-2023 Episodic Viral infection (17 sources) Postherpetic neuralgia; Translations: [Other postherpetic nervous system involvement] Onset: 07-07-2023 07-07-2023 Episodic Results Test Name Value Interpretation Reference Range Facility Urine Cytology ([facility])on 0 07-09-2024 Microscopic exam Cytology (U) [Interp] Diagnosis Info Invalid Interpretation Code [facility] Comment on above: Result Comment: A:Ur ine,Urine:Voided Interpretation - 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 Clinical correlation and tissue confirmation is recommended as clinically indicated. CPT 99928 MicroScopic Description - Adequacy - Gross Description Site ID:A color Yellow fixative Alcohol Specimen designated Urine received in alcohol preservative and labeled with the patient???s name, consists of 40ml clear yellow fluid. Electronically signed by : on: 07/09/2024 09:49:35 Performed By: #### 1 [id number] #### [facility] [address] [place] [address] Ambulatory Visit Summaryon 0 07-05-2024 Ambulatory Visit Summary Ambulatory Visit Summary JAM ESPINAL JR :1940 Visit Date:07/05/2024 Ambulatory Visit Instructions Your Diagnosis Gross hematuria BPH with urinary obstruction Screening PSA (prostate specific antigen) Tests Performed CT Urogram -- Results Pending -- Please visit your patient portal for your results or contact your primary care physician. Your Care Team Attending Physician - Jayson LEMUS MD Primary Care Physician - JORGE LUIS MALIK MD Referring Physician - JORGE LUIS MALIK MD This Is Your Medications List ciprofloxacin (Cipro 500 mg Tab) Contact prescribing physician if questions or concerns acetaminophen (Tylenol) albuterol gabapentin (gabapentin 100 mg Cap) glipiZIDE (glipiZIDE 10 mg Tab) hydrOXYzine (hydrOXYzine hydrochloride 25 mg Tab) metformin omeprazole oxcarbazepine (oxcarbazepine 300 mg Tab) Procedures Performed History of hernia repair. Discharge Vitals Temperature (Oral) 37 ???C Heart Rate (Peripheral) 86 Respiratory Rate 18 Blood Pressure 124/96 Height 179 cm Height 70 in Weight 85.4 kg Weight 188.275 lb BMI 26.65 What to do next You Need to Schedule the Following Appointments Follow Up with LIBBY QUINTANA, Jayson Mclain, DANIELA When: Where: [facility] [address], [place] [address]- [phone] Medications What How Much When Instructions New ciprofloxacin (Cipro 500 mg Tab) 1 Tablets By Mouth Every day take one tab day before procedure and one tab after procedure Pickup at [facility]/pharmacy #[id number] Unchanged acetaminophen (Tylenol) 500 Milligram By Mouth 3 times a day Contact prescribing physician if questions or concerns Unchanged albuterol See instructions Contact prescribing physician if questions or concerns Unchanged gabapentin (gabapentin 100 mg Cap) 1 Capsules Contact prescribing physician if questions or concerns Unchanged glipiZIDE (glipiZIDE 10 mg Tab) 1 Tablets Contact prescribing physician if questions or concerns Unchanged hydrOXYzine (hydrOXYzine hydrochloride 25 mg Tab) 1 Tablets Contact prescribing physician if questions or concerns Unchanged metformin 500 Milligram By Mouth Every day Contact prescribing physician if questions or concerns Unchanged omeprazole 20 Milligram By Mouth Every day Contact prescribing physician if questions or concerns Unchanged oxcarbazepine (oxcarbazepine 300 mg Tab) 1 Tablets Contact prescribing physician if questions or concerns Pharmacy Information [facility]/pharmacy #[id number]: [address], [place] [id number] [phone] Allergies codeine (Lightheadedness) Problems Ongoing - Any problem that you are currently receiving treatment for. BPH with urinary obstruction Gross hematuria Screening PSA (prostate specific antigen) Patient Survey You may receive a survey via text or e-mail asking about your office visit. Please share your experience with us by completing your survey. We appreciate your feedback and thank you for choosing us for your care. Education Materials Cystoscopy Cystoscopy is a procedure that is used to help diagnose and sometimes treat conditions that affect the lower urinary tract. The lower urinary tract includes the bladder and the urethra. The urethra is the tube that drains urine from the bladder. Cystoscopy is done using a thin, tube-shaped instrument with a light and camera at the end (cystoscope). The cystoscope may be hard or flexible, depending on the goal of the procedure. The cystoscope is inserted through the urethra, into the bladder. Cystoscopy may be recommended if you have: ??? Urinary tract infections that keep coming back. ??? Blood in the urine (hematuria). ??? An inability to control when you urinate (urinary incontinence) or an overactive bladder. ??? Unusual cells found in a urine sample. ??? A blockage in the urethra, such as a urinary stone. ??? Painful urination. ??? An abnormality in the bladder found during an intravenous pyelogram (IVP) or CT scan. Cystoscopy may also be done to remove a sample of tissue to be examined under a microscope (biopsy). Tell a health care provider about: ??? Any allergies you have. ??? All medicines you are taking, including vitamins, herbs, eye drops, creams, and jgeg-zoq-xquypuz medicines. ??? Any problems you or family members have had with anesthetic medicines. ??? Any blood disorders you have. ??? Any surgeries you have had. ??? Any medical conditions you have. ??? Whether you are or may be . What are the risks? Generally, this is a safe procedure. However, problems may occur, including: ??? Infection. ??? Bleeding. ??? Allergic reactions to medicines. ??? Damage to other structures or organs. What happens before the procedure? Medicines Ask your health care provider about: ??? Changing or stopping your regular medicines. This is especially important if you are taking di (more content not included)... Normal [facility] Urine Cytology ([facility])on 07-05-2024 Method of Extraction Voided Normal [facility] Comment on above: Performed By: #### 1 [id number] #### [facility] [address] Number of Jars [address] [facility] Comment on above: Performed By: #### 1 [id number] #### [facility] [address] [place] [address] UC Specimen Urine Normal [facility] Comment on above: Performed By: #### 1 [id number] #### [facility] [address] [place] [address] Type of Service Technical Only Normal [facility] Comment on above: Performed By: #### 1 [id number] #### [facility] [address] [place] [address] [facility]H UA (CLEAN/CATCH) MICROSC OPIC IF INDICATEon 06-24-2024 BILIRUBIN URINE Negative NEGATIVE [facility] BLOOD URINE LARGE Abnormal NEGATIVE [facility] Clarity (U) CLEAR CLEAR [facility] Color (U) LT. YELLOW YELLOW [facility] GLUCOSE URINE UA Negative NEGATIVE mg/dL [facility] Interpretation and review of laboratory results Abnormal [facility] Ketones Ql (U) Negative NEGATIVE mg/dL [facility] Leukocyte esterase Test strip Ql (U) Negative NEGATIVE [facility] NITRITE URINE Negative NEGATIVE [facility] pH (U) 5.5 [pH] 5.0 - 9.0 [facility] PROTEIN URINE Negative NEG/TRACE mg/dL [facility] SPECIFIC GRAVITY URINE 1.020 1.005 - 1.025 [facility] URINE MICROSCOPIC INDICATED YES [facility] UROBILINOGEN URINE 0.2 EU/dL 0.2 - 1.0 EU/dL [facility] ALL CBC WITH AUTO DIFFon BASOPHILS ABSOLUTE [...] 36.3 % Low 42.0 - 54.0 % [facility] Hemoglobin (Bld) [Mass/Vol] 12.3 g/dL Low 14.0 [...] vol] 9.5 fL 9.5 - 13.5 fL [facility] TBH EO # 0.7 [facility] PLT 419 [facility] RBC 4 Low [facility] TB WBC 9.4 [facility] MLR HEMOGLOBIN A1Con 024 Glucose [Mass/Vol] 148 mg/dL [facility] HbA1c (Bld) [Mass fraction] 6.8 % High 4.5 - 6.2 % [facility] Comment on above: ADA RECOMMENDED LIMI T 4.0 - 6.0 ADA THERAPEUTIC TARGET < 7.0 ACTION SUGGESTED > 7.0 Interpretation and review of laboratory results Abnormal [facility] A1Con 2022 ADA RECOMMENDATION SEE BELOW Normal [facility] Comment on above: Result Comment: ADA RECOMMENDED LIMIT 4.0 - 6.0 ADA THERAPEUTIC TARGET < 7.0 ACTION SUGGESTED > 7.0 Performed By: #### A 1C #### [facility] [address] [address] [address] Sulema Blair Glucose [Mass/Vol] 160 mg/dL Normal [facility] Comment on above: Performed By: #### A 1C #### [facility] [address] [place] [address] Dr. Sulema Blair HbA1c (Bld) [Mass fraction] 7.2 % Critically high 4.5-6.[address] [facility] Comment on above: Performed By: #### A 1C #### [facility] [address] [place] [address] Dr. Sulema Blair MICROALBUMIN URINEon 022 Albumin, Urine 11.1 ug/mL Normal Not Estab. [facility] Comment on above: Performed By: #### M ALBLC #### [facility] [address] [place] [address] Dr. Sulema Blair CBC AUTO DIFFon 02-12-2022 BASO # 0.1 103/ul Normal 0.0-0.[address] [facility] Comment on above: Performed By: #### C BC #### [facility] [address] [place] [address] Dr. Sulema Blair Basophils/100 WBC (Bld) 0.7 % Normal 0.2-2.[address] [facility] Comment on above: Performed By: #### C BC #### [facility] [address] [place] [address] Dr. Sulema Blair EO # 0.4 103/ul Normal 0.0-0.[address] [facility] Comment on above: Performed By: #### C BC #### [facility] [address] [place] [address] Dr. Sulema Blair Eosinophils/100 WBC (Bld) 3.7 % Normal 0.9-7.0 [facility] Comment on above: Performed By: #### C BC #### [facility] [address] [place] [address] Dr. Sulema Blair Erythrocyte distribution width (RBC) [Ratio] 13.0 % Normal 11.0-15.0 [facility] Comment on above: Performed By: #### C BC #### [facility] [address] [place] [address] Dr. Sulema Blair Hematocrit (Bld) [Volume fraction] 37.7 % Critically low 42.0-54.[address] [facility] Comment on above: Performed By: #### C BC #### [facility] [address] [address] [address] Sulema Blair Hemoglobin (Bld) [Mass/Vol] 12.4 g/dL Critically low 14.0-18.[address] [facility] Comment on above: Performed By: #### C BC #### [facility] [address] [address] [address] Sulema Blair IG # 0.03 10e3/ul Normal 0.00-0.[address] [facility] Comment on above: Performed By: #### C BC #### [facility] [address] [address] [address] Sulema Blair IG % 0.3 % Normal 0.0-0.[address] [facility] Comment on above: Performed By: #### C BC #### [facility] [address] [place] [address] Dr. Sulema Blair LYMPH # 1.3 103/ul Normal 1.2-3.[address] [facility] Comment on above: Performed By: #### C BC #### [facility] [address] [place] [address] Dr. Sulema Blair Lymphocytes/100 WBC (Bld) 13.7 % Critically low 20.5-60.[address] [facility] Comment on above: Performed By: #### C BC #### [facility] [address] [place] [address] Dr. Sulema Blair MANUAL DIFF REQ NO Normal [facility] Comment on above: Performed By: #### C BC #### [facility] [address] [place] [address] Dr. Sulema Blair MCH (RBC) [Entitic mass] 30.5 pg Normal 25.9-34.0 [facility] Comment on above: Performed By: #### C BC #### [facility] [address] [place] [address] Dr. Sulema Blair MCHC (RBC) [Mass/Vol] 32.9 g/dL Normal 29.9-35.2 [facility] Comment on above: Performed By: #### C BC #### [facility] [address] [address] [address] Sulema Blair MCV (RBC) [Entitic vol] 92.9 fL Normal 80.0-94.[address] [facility] Comment on above: Performed By: #### C BC #### [facility] [address] [address] [address] Sulema Blair MONO # 0.9 103/ul Critically high 0.3-0.8 [facility] Comment on above: Performed By: #### C BC #### [facility] [address] [place] [address] Dr. Sulema Blair Monocytes/100 WBC (Bld) 9.7 % Normal 1.7-12.[address] [facility] Comment on above: Performed By: #### C BC #### [facility] [address] [place] [address] Dr. Sulema Blair NEUT # 6.9 103/ul Critically high 1.4-6.[address] [facility] Comment on above: Performed By: #### C BC #### [facility] [address] [place] [address] Dr. Sulema Blair Neutrophils/100 WBC (Bld) 71.9 % Normal 43.0-75.[address] [facility] Comment on above: Performed By: #### C BC #### [facility] [address] [place] [address] Dr. Sulema Blair Platelet mean volume (Bld) [Entitic vol] 10.7 fL Normal 9.5-13.5 [facility] Comment on above: Performed By: #### C BC #### [facility] [address] [place] [address] Dr. Sulema Blair PLT 313 103/ul Normal 150-450 [facility] Comment on above: Performed By: #### C BC #### [facility] [address] [place] [address] Dr. Sulema Blair RBC 4.06 106/ul Critically low 4.70-6.10 [facility] Comment on above: Performed By: #### C BC #### [facility] [address] [address] [address] Sulema Blair WBC 9.6 103/ul Normal 4.0-11.[address] [facility] Comment on above: Performed By: #### C BC #### [facility] [address] [address] [address] Sulema Blair GLYCOHEMOGLOBIN A1Con 2021 ADA RECOMMENDATION SEE BELOW Normal [facility] Comment on above: Result Comment: ADA RECOMMENDED LIMIT 4.0 - 6.0 ADA THERAPEUTIC TARGET < 7.0 ACTION SUGGESTED > 7.0 Performed By: #### A 1C #### [facility] [address] [address] [address] Sulema Blair Glucose [Mass/Vol] 157 mg/dL Normal [facility] Comment on above: Performed By: #### A 1C #### [facility] [address] [place] [address] Dr. Sulema Blair HbA1c (Bld) [Mass fraction] 7.1 % Critically high 4.5-6.[address] [facility] Comment on above: Performed By: #### A 1C #### [facility] [address] [place] [address] Dr. Sulema Blair LIPID PROFILEon 02-12-2022 CHOL-HDL RATIO NORM SEE BELOW Normal [facility] Comment on above: Result Comment: 3.3 - 4.4 LOW RISK 4.4 - 7.1 AVERAGE RISK 7.1 - 11.0 MODERATE RISK >11.0 HIGH RISK Performed By: #### L MICHELLE NIETO, LIPID #### [facility] [address] [place] [address] Dr. Sulema Blair Cholesterol [Mass/Vol] 238 mg/dL Critically high <=[address] [facility] Comment on above: Performed By: #### L MICHELLE NIETO, LIPID #### [facility] [address] [place] [address] Dr. Sulema Blair Cholesterol in HDL [Mass/Vol] 45 mg/dL Normal 40-[address] [facility] Comment on above: Performed By: #### L MICHELLE NIETO, LIPID #### [facility] [address] [address] [address] Sulema Blair Cholesterol in LDL [Mass/Vol] 141.4 mg/dL Normal [facility] Comment on above: Performed By: #### MICHELLE PINO, LIPID #### [facility] [address] [place] [address] Dr. Sulema Blair Cholesterol.total/Ch olesterol in HDL [Mass ratio] 5.3 {ratio} Normal [facility] Comment on above: Performed By: #### L MICHELLE NIETO, LIPID #### [facility] [address] [address] [address] Sulema Blair HDL NORMAL > or = 60 mg/dl - LOW CARDIOVASCULAR RISK <40 mg/dl - HIGH CARDIOVASCULAR RISK Normal [facility] Comment on above: Performed By: #### MICHELLE PINO, LIPID #### [facility] [address] [place] [address] Dr. Sulema Blair LDL CALC NORMAL SEE BELOW Normal [facility] Comment on above: Result Comment: <100 mg/dl OPTIMAL 100 - 129 mg/dl NEAR OR ABOVE OPTIMAL 130 - 159 mg/dl BORDERLINE HIGH 160 - 189 mg/dl HIGH >190 mg/dl VERY HIGH Performed By: #### MICHELLE PINO, LIPID #### [facility] [address] [place] [address] Dr. Sulema Blair Triglyceride [Mass/Vol] 258 mg/dL Critically high <=[address] [facility] Comment on above: Performed By: #### MICHELLE PINO, LIPID #### [facility] [address] [place] [address] Dr. Sulema Blair VLDL CALC 51.6 mg/dL Normal [facility] Comment on above: Performed By: #### MICHELLE PINO, LIPID #### [facility] [address] [place] [address] Dr. Sulema Blair LIVER PROFILEon 02-12-2022 Albumin [Mass/Vol] 3.4 g/dL Normal 3.4-5.0 [facility] Comment on above: Performed By: #### MICHELLE PINO, LIPID #### [facility] [address] [place] [address] Dr. Sulema Blair Albumin/Globulin [Mass ratio] 0.9 {ratio} Normal [facility] Comment on above: Performed By: #### L IVER, BMP, LIPID #### [facility] [address] [place] [address] Dr. Sulema Blair ALP [Catalytic activity/Vol] 78 U/L Normal 46-[address] [facility] Comment on above: Performed By: #### L IVER, BMP, LIPID #### [facility] [address] [place] [address] Dr. Sulema Blair ALT [Catalytic activity/Vol] 27 U/L Normal 16-[address] [facility] Comment on above: Performed By: #### L IVANNABELLA, BMP, LIPID #### [facility] [address] [place] [address] Dr. Sulema Blair AST [Catalytic activity/Vol] 24 U/L Normal 15-[address] [facility] Comment on above: Performed By: #### L IVANNABELLA BMP, LIPID #### [facility] [address] [place] [address] Dr. Sulema Blair BILI, CONJUGATED 0.1 mg/dL Normal 0.0-0.2 [facility] Comment on above: Performed By: #### L IVANNABELLA BMP, LIPID #### [facility] [address] [place] [address] Dr. Sulema Blair Bilirubin [Mass/Vol] 0.5 mg/dL Normal 0.2-1.[address] [facility] Comment on above: Performed By: #### L IVER, BMP, LIPID #### [facility] [address] [place] [address] Dr. Sulema Blair Globulin (S) [Mass/Vol] 3.6 g/dL Normal [facility] Comment on above: Performed By: #### L IVER, BMP, LIPID #### [facility] [address] [place] [address] Dr. Sulema Blair Protein [Mass/Vol] 7.0 g/dL Normal 6.4-8.2 [facility] Comment on above: Performed By: #### L IVER, BMP, LIPID #### [facility] [address] [place] [address] Dr. Sulema Blair PROF CHEM 8 (BAS METB)on Anion gap [Moles/Vol] 12.5 mmol/L Normal [facility] Comment on above: Performed By: #### L IVER, BMP, LIPID #### [facility] [address] [place] [address] Dr. Sulema Blair Calcium [Mass/Vol] 9.4 mg/dL Normal 8.5-10.1 [facility] Comment on above: Performed By: #### L IVER, BMP, LIPID #### [facility] [address] [place] [address] Dr. Sulema Blair Chloride [Moles/Vol] 104 mmol/L Normal 98-[address] [facility] Comment on above: Performed By: #### L IVER, BMP, LIPID #### [facility] [address] [place] [address] Dr. Sulema Blair CO2 [Moles/Vol] 30.5 mmol/L Normal 21.0-32.0 [facility] Comment on above: Performed By: #### L IVER, BMP, LIPID #### [facility] [address] [place] [address] Dr. Sulema Blair Creatinine [Mass/Vol] 1.46 mg/dL Critically high 0.70-1.[address] [facility] Comment on above: Performed By: #### L IVER, BMP, LIPID #### [facility] [address] [place] [address] Dr. Sulema Blair EGFR-AF GRENADIAN 56 mL/min/1.73m2 Critically low >=[address] [facility] Comment on above: Performed By: #### L IVER, BMP, LIPID #### [facility] [address] [place] [address] Dr. Sulema Blair EGFR-NON AF GRENADIAN 47 mL/min/1.73m2 Critically low >=[address] [facility] Comment on above: Performed By: #### L IVER, BMP, LIPID #### [facility] [address] [address] [address] Sulema Blair Glucose [Mass/Vol] 159 mg/dL Critically high 74-106 [facility] Comment on above: Performed By: #### L IVER, BMP, LIPID #### [facility] [address] [place] [address] Dr. Sulema Blair Potassium [Moles/Vol] 4.0 mmol/L Normal 3.5-5.[address] [facility] Comment on above: Performed By: #### L IVER, BMP, LIPID #### [facility] [address] [place] [address] Dr. Sulema Blair Sodium [Moles/Vol] 143 mmol/L Normal 136-145 [facility] Comment on above: Performed By: #### L IVER, BMP, LIPID #### [facility] [address] [place] [address] Dr. Sulema Blair Urea nitrogen [Mass/Vol] 16.0 mg/dL Normal 7.0-18.[address] [facility] Comment on above: Performed By: #### L IVER, BMP, LIPID #### [facility] [address] [place] [address] Dr. Sulema Blair Urea nitrogen/Creatinine [Mass ratio] 11.0 mg/mg Normal [facility] Comment on above: Performed By: #### L IVER, BMP, LIPID #### [facility] [address] [place] [address] Dr. Sulema Blair Vital Signs Date Time Vital Sign Value Performing Clinician Odilia chase 07-07-2024 13:41-0500 Body height 177.8 cm Jorge Luis Malik MD Work Phone: [facility] 07-07-2024 13:41-0500 Body mass index (BMI) [Ratio] 27.26 kg/m2 Jorge Luis Malik MD Work Phone: [facility] 07-07-2024 13:41-0500 Body temperature 97.11 [degF] Jorge Luis Malik MD Work Phone: [facility] 07-07-2024 13:41-0500 Body weight 86.18 kg Jorge Luis Malik MD Work Phone: [facility] 07-07-2024 13:41-0500 Diastolic blood pressure 68 mm[Hg] Jorge Luis Malik MD Work Phone: [facility] 07-07-2024 13:41-0500 Heart rate 80 /min Jorge Luis Malik MD Work Phone: [facility] 07-07-2024 13:41-0500 Respiratory rate 22 /min Jorge Luis Malik MD Work Phone: [facility] 07-07-2024 13:41-0500 SaO2% (BldA) [Mass fraction] 99 % Jorge Luis Malik MD Work Phone: [facility] 07-07-2024 13:41-0500 Systolic blood pressure 126 mm[Hg] Jorge Luis Malik MD Work Phone: [facility] 07-05-2024 09:03-0500 Blood Pressure Location Jayson LEMUS [facility] 07-05-2024 09:03-0500 Body temperature 98.6 [degF] Jayson LEMUS [facility] 07-05-2024 09:03-0500 Diastolic blood pressure 96 mm[Hg] Jayson LEMUS [facility] 07-05-2024 09:03-0500 Heart rate 86 /min Jayson LEMUS [facility] 07-05-2024 09:03-0500 Respiratory rate 18 /min Jayson LEMUS [facility] 07-05-2024 09:03-0500 Systolic blood pressure 124 mm[Hg] Jayson LEMUS [facility] 06-23-2024 13:27-0500 Body mass index (BMI) [Ratio] 27.12 kg/m2 Christopher Meena DO Work Phone: [facility] 06-23-2024 13:27-0500 Body weight 85.73 kg Christopher Meena DO Work Phone: [facility] 06-23-2024 13:27-0500 Diastolic blood pressure 88 mm[Hg] Christopher Meena DO Work Phone: [facility] 06-23-2024 13:27-0500 Heart rate 94 /min Christopher Meena DO Work Phone: [facility] 06-23-2024 13:27-0500 SaO2% (BldA) [Mass fraction] 98 % Christopher Meena DO Work Phone: [facility] 06-23-2024 13:27-0500 Systolic blood pressure 150 mm[Hg] Christopher Meena DO Work Phone: [facility] [...] Date Encounter Type Care Provider Facility Start: 07-07-2024 End: 07-07-2024 Bamboo flowsheet Jorge Luis Malik MD Work Phone: [facility] Start: 07-07-2024 End: 07-07-2024 Bamboo flowsheet Jorge Luis Malik MD Work Phone: [facility] Start: 07-07-2024 End: 07-07-2024 Patient encounter procedure Jorge Luis Malik MD Work Phone: [facility] Work Phone: Start: 07-07-2024 End: 07-07-2024 Postop follow up visit related to original px Jorge Luis Malik MD Work Phone: [facility] Comment on above: Medicare annual well ness visit, subsequent (Primary Dx); Type 2 diabetes mellitus with hyperglycemia, without long-term current use of insulin ([facility]); Dyslipidemia ([facility]); Chronic obstructive pulmonary disease, unspecified COPD type ([facility]); Statin myopathy; Type 2 diabetes mellitus with other specified complication ([facility]) Start: 07-07-2024 End: 07-07-2024 ambulatory JORGE LUIS MALIK Not Available Start: 07-05-2024 End: 07-05-2024 ambulatory Jayson LEMUS Facility:[facility] Start: 07-05-2024 End: 07-05-2024 Lab Drop off Jayson LEMUS [facility] Start: 07-05-2024 End: 07-05-2024 ambulatory Jayson LEMUS Facility:[facility] Start: 07-05-2024 End: 07-05-2024 Patient encounter procedure Jayson LEMUS [facility] Start: 06-24-2024 End: 06-24-2024 Clinisync Result Encounter Jorge Luis Malik MD Work Phone: [facility] Unsolicited Start: 06-24-2024 End: 06-24-2024 Clinisync Result Encounter Jorge Luis Malik MD Work Phone: [facility] Unsolic[facility] Start: 06-23-2024 End: 06-23-2024 Bamboo flowsheet Roberto Caraballoett DO Work Phone: [facility] Start: 06-23-2024 End: 06-23-2024 Bamboo flowsheet Roberto Caraballoett DO Work Phone: [facility] Start: 06-23-2024 End: 06-23-2024 Office outpatient new 45 minutes Roberto Robledo DO Work Phone: [facility] Comment on above: Post herpetic neural kevyn (CMS/HCC) (Primary Dx) Start: 06-23-2024 End: 06-23-2024 ambulatory ALEJANDROANNABELLA MEENA Not Available Start: 06-15-2024 ambulatory Jayson LEMUS Facility :[facility] Start: 06-14-2024 End: 06-14-2024 Bamboo flowsheet Jorge Luis Malik MD Work Phone: [facility] Start: 06-14-2024 End: 06-14-2024 Bamboo flowsheet Jorge Luis Malik MD Work Phone: [facility] Start: 06-14-2024 End: 06-14-2024 Office outpatient visit 15 minutes Jorge Luis Malik MD Work Phone: [facility] Comment on above: Gross hematuria ([place] dia Dx) Start: 06-14-2024 End: 06-14-2024 ambulatory JORGE [...] Encounter Jorge Luis Malik MD Work Phone: [facility] External Department Unsolicited Start: 01-20-2024 End: 01-20-2024 Clinisync Result Encounter Jorge Luis Malik MD Work Phone: [facility] External Department Unsolicited Start: 01-06-2024 End: 01-06-2024 ambulatory JORGE LUIS MALIK Not Available Start: 12-02-2023 End: 12-02-2023 ambulatory JORGE LUIS MALIK Not Available Start: 09-16-2022 End: 09-17-[address] JORGE LUIS MALIK Facility:[facility] Start: 02-21-2022 End: 02-22-[address] JORGE LUIS MALIK Facility:[facility] Start: 02-12-2022 End: 02-13-[address] JORGE LUIS MALIK Facility:[facility] Procedures Date Procedure Procedure Detail Performing Clinician Start: 06-24-2024 TBH UA (CLEAN/CATCH) MICROSCOPIC IF INDICATE Jorge Luis Malik MD Work Phone: Start: 05-24-2024 ALL CBC WITH AUTO DIFF Jorge Luis Malik MD Work Phone: Start: 01-20-2024 MLR HEMOGLOBIN A1C Jorge Luis Malik MD Work Phone: Start: 02-12-[address] JORGE LUIS ORTIZ Comment on above: Performed By: #### [facility] #### [facility] [address] [address] [address] Sulema Blair History of hernia repair Pat gucci LEMUS Plan of Treatment Date Care Activity Detail Author Start: 11-02-2025 Glaucoma screening Diabetes: R etinopathy Screening [facility] Start: 05-24-2025 Urine screening for protein Diabetes: Urine Protein Screening [facility] Start: 01-04-2025 End: 01-04-2025 Patient encounter procedure 01/04/2025 1:30 PM EDT Office Visit [facility] [address] [place] [phone] Jorge Luis Malik MD [address] [place] [phone] [facility] Start: 11-22-2024 Hemoglobin A1c measurement Diabetes: Hemoglobin A1C [facility] Start: 08-11-2024 ambulatory Ambulatory Facility:[facility] Start: 07-28-2024 End: 07-28-2024 Patient encounter procedure 07/28/2024 3:00 PM EST Office Visit [facility] [address] [address] Layla Rodriguez NP [address] [address] [facility] Start: 07-22-2024 Hemoglobin A1c measurement Diabetes: Hemoglobin A1C [facility] Start: 07-07-2024 End: 07-07-2024 Patient encounter procedure [facility] Comment on above: Arrived Start: 06-23-2024 End: 06-23-2024 Patient encounter procedure [...] Gross hematuria Expected: 06/14/2024 (Approximate), Expires: 06/14/2025 [facility] Comment on above: Expected: 06/14/2024 (Approximate), Expires: 06/14/2025 Start: 06-14-2024 End: 06-14-2024 Patient encounter procedure 06/14/2024 1:15 PM EST Office Visit [facility] [address] [place] [phone] Jorge Luis Malik MD [address] [place] [address] Arrived [facility] Comment on above: Arrived Start: 05-17-2024 End: [...] hyperglycemia, without long-term current use of insulin ([facility]) Expected: 05/17/2024 (Approximate), Expires: 05/17/2025 [facility] or Plasma Lipid panel Lab Routine Dyslipidemia (CMS/HCC) Expected: 05/17/2024 (Approximate), Expires: 05/17/2025 [facility] [...] or Plasma TSH Lab Routine Adult hypothyroidism (CMS/HCC) Expected: 05/17/2024 (Approximate), Expires: 05/17/2025 [facility] Comment on above: Expected: 05/17/2024 (Approximate), Expires: 05/17/2025 Start: 05-17-2024 End: 05-17-2025 Thyroxine (T4) free [Mass/volume] in Serum or Plasma T4, free Lab Routine Adult hypothyroidism (CMS/HCC) Expected: 05/17/2024 (Approximate), Expires: 05/17/2025 [facility] Comment on above: Expected: 05/17/2024 (Approximate), Expires: 05/17/2025 Start: 05-17-2024 End: 05-17-2024 Patient encounter procedure 05/17/2024 10:15 AM EST Office Visit [facility] [address] [place] [address] Jorge Luis Malik MD [address] [place] [phone] Arrived [facility] Comment on above: Arrived Start: 05-02-2024 Urine [...] Immunization Date Immunization Notes Care Provider Fa cili 12-12-2023 pneumococcal 20-liz nt conjugate vaccine Jayson LEMUS [facility] 12-12-2023 zoster vaccine recombinant Jayson LEMUS [facility] 10-07-2023 zoster vaccine recombinant Jayson LEMUS [facility] 03-07-2023 influenza virus vacc ine, unspecified formulation Jorge Luis Malik MD Work Phone: [facility] 04-08-2022 influenza virus vacc ine, unspecified formulation Jayson LEMUS [facility] 04-21-2021 SARS-CoV-2 (COVID-19 ) mRNA BNT-162b2 vax Jayson LEMUS [facility] 03-22-2021 influenza virus vacc ine, unspecified formulation Jayson LEMUS [facility] 07-21-2020 SARS-CoV-2 (COVID-19 ) mRNA BNT-162b2 vax Jayson LEMUS [facility] Comment on above: Result Comment: 2024: [id number] 06-30-2020 SARS-CoV-2 (COVID-19 ) mRNA BNT-162r7 vax Jayson LEMUS [facility] Comment on above: Result Comment: 2024: [id number] 03-10-2019 influenza virus vacc ine, unspecified formulation Jaysongucci LEMUS [facility] 02-11-2018 influenza virus vacc ine, unspecified formulation Jaysongucci LEMUS [facility] 04-10-2016 influenza virus vacc ine, unspecified formulation Jayson LEMUS [facility] 03-10-2015 influenza virus vacc ine, unspecified formulation Jaysongucci LEMUS [facility] 08-21-2010 pneumococcal polysaccharide vaccine, 23 valent Jayson LEMUS [facility] Payers Date Payer Category Payer Medicare [employer]AGE D[employer]AGE [id number] 2021-Present [address] [place] [address] [id number] 2021 Medicare (Managed Care) [employer] ADVANTAGE [id number] 1959 Unknown [id number] 1940 Unknown [id number]. 2.593 1942 Unknown [id number] [id number]. 2.593 1942 Unknown [id number] [id number]. 2.593 1942 Unknown [id number] [id number]. 2.727 1942 Unknown [id number] [id number]. 2.727 1942 Unknown [id number] [id number]. 2.727 1942 Unknown [id number] [id number]. 2.1259 1942 Unknown [id number] [id number]. 2.1259 1942 Unknown [id number] [id number]. 2.1259 1942 Unknown [id number] [id number]. 2.1259 1942 Unknown [id number] [id number]. 2.1259 1942 Unknown [id number]. 2.1259 Social History Date Type Detail Facility Start: 07-07-2023 End: 06-23-2024 Tobacco smoking status NHIS Ex-smoker [facility] Start: 06-02-1949 End: 06-02-1968 History of tobacco use Current smoker [facility] Start: 06-02-1949 End: 06-02-1968 History of tobacco use Cigarette Smoker [facility] Start: 07-07-2023 End: 07-07-2024 Cigarettes smoked current (pack per day) - Reported 1 [facility] Start: 07-07-2023 End: 06-23-2024 Tobacco use and exposure Smokeless tobacco non-user [facility] Start: 01-06-2024 End: 07-07-2024 Tobacco use panel [facility] Start: 1940 Sex assigned at Not on file N [facility] Start: 07-05-2024 Tobacco smoking status Never s moked tobacco (finding) [facility] Tobacco smoking status Never [facility] Medical Equipment Procedure Code Equipment Code Equipment Origin al Text Equipment Identifier Dates USE ONCE A DAY [id number] Start: 12-31-2023 Functional Status Date Assessment Result Facility 07-05-2024 Functional Status N/A [facility] Clinical Notes 05-17-2024 to 07-07-2024 Jorge Luis Malik MD - 07/07/2024 2:15 PM Yo Malik MD - 07/07/2024 2:15 PM Yo Malik MD - 07/07/2024 2:15 PM Yo Malik MD - 07/07/2024 2:15 PM EST Note Date & Type Note Facility 07-07-2024 History of Present illness Narrative Associated Problem(s): Type 2 diabetes mellitus with hyperglycemia (CMS/HCC) Recent A1C 7.5. Stick to ADA diet and limit carbs. Associated Problem(s): Medicare annual wellness visit, subsequent Due for labs. Discussed proper diet and regular aerobic exercise. Need aerobic exercise 5-6 days a week for 30 minutes at a time. Smaller portions and limit total calories. Tetanus every 10 years. Advised not to smoke. Associated Problem(s): Dyslipidemia ([facility]) Prior statin intolerance. Associated Problem(s): COPD (chronic obstructive pulmonary disease) ([facility]) Symptoms stable and use albuterol PRN. Images from the original note were not included. Subjective Patient ID: Jam Espinal Jr. is a 84 y.o. male who presents for Medicare Annual Wellness Visit Subsequent (Wellness). Presents for medicare annual wellness visit. Feels well today. Weight up 13 pounds in the past year. Not active and no regular exercise or activity. Not watching diet or trying to eat healthy. Not limiting portions or snacking. Not limiting total daily calories. Labs in May and reviewed with patient. Review of Systems Constitutional: Negative for fatigue. [...] Problem List Items Addressed This Visit COPD (chronic obstructive pulmonary disease) ([facility]) Symptoms stable and use albuterol PRN. Dyslipidemia ([facility]) Prior statin intolerance. Type 2 diabetes mellitus with hyperglycemia ([facility]) Recent A1C 7.5. Stick to ADA diet and limit carbs. Medicare annual wellness visit, subsequent - Primary Due for labs. Discussed proper diet and regular aerobic exercise. Need aerobic exercise 5-6 days a week for 30 minutes at a time. Smaller portions and limit total calories. Tetanus every 10 years. Advised not to smoke. Statin myopathy documented in this encounter [facility] 07-05-2024 Hospital Discharge instructions Patient Education 07/05/2024 10:11:20 Cystoscopy Cystoscopy Cystoscopy is a procedure that is used to help diagnose and sometimes treat conditions that affect the lower urinary tract. The lower urinary tract includes the bladder and the urethra. The urethra is the tube that drains urine from the bladder. Cystoscopy is done using a thin, tube-shaped instrument with a light and camera at the end (cystoscope). The cystoscope may be hard or flexible, depending on the goal of the procedure. The cystoscope is inserted through the urethra, into the bladder. Cystoscopy may be recommended if you have: Urinary tract infections that keep coming back. Blood in the urine (hematuria). An inability to control when you urinate (urinary incontinence) or an overactive bladder. Unusual cells found in a urine sample. A blockage in the urethra, such as a urinary stone. Painful urination. An abnormality in the bladder found during an intravenous pyelogram (IVP) or CT scan. Cystoscopy may also be done to remove a sample of tissue to be examined under a microscope (biopsy). Tell a health care provider about: Any allergies you have. All medicines you are taking, including vitamins, herbs, eye drops, creams, and [id number] medicines. Any problems you or family members have had with anesthetic medicines. Any blood disorders you have. Any surgeries you have had. Any medical conditions you have. Whether you are or may be . What are the risks? Generally, this is a safe procedure. However, problems may occur, including: Infection. Bleeding. Allergic reactions to medicines. Damage to other structures or organs. What happens before the procedure? Medicines Ask your health care provider about: Changing or stopping your regular medicines. This is especially important if you are taking diabetes medicines or blood thinners. Taking medicines such as aspirin and ibuprofen. These medicines can thin your blood. Do not take these medicines unless your health care provider tells you to take them. Taking nrkv-slf-hjtmksl medicines, vitamins, herbs, and supplements. Tests You may have an exam or testing, such as: X-rays of the bladder, urethra, or kidneys. CT scan of the abdomen or pelvis. Urine tests to check for signs of infection. General instructions Follow instructions from your health care provider about eating or drinking restrictions. Ask your health care provider what steps will be taken to help prevent infection. These steps may include: ?Washing skin with a germ-killing soap. ?Taking antibiotic medicine. Plan to have a responsible adult take you home from the hospital or clinic. What happens during the procedure? You will be given one or more of the following: ?A medicine to help you relax (sedative). ?A medicine to numb the area (local anesthetic). The area around the opening of your urethra will be cleaned. The cystoscope will be passed through your urethra into your bladder. Germ-free (sterile) fluid will flow through the cystoscope to fill your bladder. The fluid will stretch your bladder so that your health care provider can clearly examine your bladder orr. Your doctor will look at the urethra and bladder. Your doctor may take a biopsy or remove stones. The cystoscope will be removed, and your bladder will be emptied. The procedure may vary among health care providers and hospitals. What can I expect after the procedure? After the procedure, it is common to have: Some soreness or pain in your abdomen and urethra. Urinary symptoms. These include: ?Mild pain or burning when you urinate. Pain should stop within a few minutes after you urinate. This may last for up to 1 week. ?A small amount of blood in your urine for several days. ?Feeling like you need to urinate but producing only a small amount of urine. Follow these instructions at home: Medicines Take fxba-fiw-ulmqioe and prescription medicines only as told by your health care provider. If you were prescribed an antibiotic medicine, take it as told by your health care provider. Do not stop taking the antibiotic even if you start to feel better. General instructions Return to your normal activities as told by your health care provider. Ask your health care provider what activities are safe for you. If you were given a sedative during the procedure, it can affect you for several hours. Do not drive or operate machinery until your health care provider says that it is safe. Watch for any blood in your urine. If the amount of blood in your urine increases, call your health care provider. Follow instructions from your health care provider about eating or drinking restrictions. If a tissue sample was removed for testing (biopsy) during your procedure, it is up to you to get your test results. Ask your health care provider, or the department that is doing the test, when your results will be ready. Drink enough fluid to keep your urine pale yellow. Keep all follow-up visits. This is important. Contact a health care provider if: You have pain that gets worse or does not get better with medicine, especially pain when you urinate. You have trouble urinating. You have more blood in your urine. Get help right away if: You have blood clots in your urine. You have abdominal pain. You have a fever or chills. You are unable to urinate. Summary Cystoscopy is a procedure that is used to help diagnose and sometimes treat conditions that affect the lower urinary tract. Cystoscopy is done using a thin, tube-shaped instrument with a light and camera at the end. After the procedure, it is common to have some soreness or pain in your abdomen and urethra. Watch for any blood in your urine. If the amount of blood in your urine increases, call your health care provider. If you were prescribed an antibiotic medicine, take it as told by your health care provider. Do not stop taking the antibiotic even if you start to feel better. This information is not intended to replace advice given to you by your health care provider. Make sure you discuss any questions you have with your health care provider. Document Revised: 01/30/2022 Document Reviewed: 12/29/2020 [employer] [employer] Patient Education 2023 [employer]. 07/05/2024 09:52:06 Hematuria, Adult Hematuria, Adult Hematuria is blood in the urine. Blood may be visible in the urine, or it may be identified with a test. This condition can be caused by infections of the bladder, urethra, kidney, or prostate. Other possible causes include: Kidney stones. Cancer of the urinary tract. Too much calcium in the urine. Conditions that are passed from parent to child (inherited conditions). Exercise that requires a lot of energy. Infections can usually be treated with medicine, and a kidney stone usually will pass through your urine. If neither of these is the cause of your hematuria, more tests may be needed to identify the cause of your symptoms. It is very important to tell your health care provider about any blood in your urine, even if it is painless or the blood stops without treatment. Blood in the urine, when it happens and then stops and then happens again, can be a symptom of a very serious condition, including cancer. There is no pain in the initial stages of many urinary cancers. Follow these instructions at home: Medicines Take uacj-xeu-jcgedmf and prescription medicines only as told by your health care provider. If you were prescribed an antibiotic medicine, take it as told by your health care provider. Do not stop taking the antibiotic even if you start to feel better. Eating and drinking Drink enough fluid to keep your urine pale yellow. It is recommended that you drink 3 4 quarts (2.8 3.8 L) a day. If you have been diagnosed with an infection, drinking cranberry juice in addition to large amounts of water is recommended. Avoid caffeine, tea, and carbonated beverages. These tend to irritate the bladder. Avoid alcohol because it may irritate the prostate (in males). General instructions If you have been diagnosed with a kidney stone, follow your health care provider's instructions about straining your urine to catch the stone. Empty your bladder often. Avoid holding urine for long periods of time. If you are female: ?After a bowel movement, wipe from front to back and use each piece of toilet paper only once. ?Empty your bladder before and after sex. Pay attention to any changes in your symptoms. Tell your health care provider about any changes or any new symptoms. It is up to you to get the results of any tests. Ask your health care provider, or the department that is doing the test, when your results will be ready. Keep all follow-up visits. This is important. Contact a health care provider if: You develop back pain. You have a fever or chills. You have nausea or vomiting. Your symptoms do not improve after 3 days. Your symptoms get worse. Get help right away if: You develop severe vomiting and are unable to take medicine without vomiting. You develop severe pain in your back or abdomen even though you are taking medicine. You pass a large amount of blood in your urine. You pass blood clots in your urine. You feel very weak or like you might faint. You faint. Summary Hematuria is blood in the urine. It has many possible causes. It is very important that you tell your health care provider about any blood in your urine, even if it is painless or the blood stops without treatment. Take rtsr-eyv-kyquxsm and prescription medicines only as told by your health care provider. Drink enough fluid to keep your urine pale yellow. This information is not intended to replace advice given to you by your health care provider. Make sure you discuss any questions you have with your health care provider. Document Revised: 01/17/2021 Document Reviewed: 01/17/2021 [employer] Patient Education 2023 [employer]. Follow Up Care 06/18/2024 13:46:52 With:LIBBY QUINTANA, Jayson Mclain, URL Address: [facility] [address], [place] [address]- [phone] When: Unknown [facility] 07-05-2024 Note Urology Office/Clini c Note Chief Complaint referral gross hematuria HPI Staff 84yr old male pt referred by Jorge Luis Malik MD for gross hematuria. Pt saw blood in his urine about a couple weeks ago. Only saw blood for 1 day. But in the past few months he says this has happened 3 times. When these episodes happen, he says there was is also mucous before his stream starts. Symptoms have since cleared up IPSS - 10 Dysuria: denies Incomplete bladder emptying: denies Hematuria: not presently, but had 1 episode a few weeks ago Frequency: yes, about every half hour Urgency: sometimes, but usually no Nocturia: most of the time 1x per night, but not always Stream: good stream Leaking: denies Post void dripping: denies Wearing pads/ Depends: denies Urge incontinence: denies Stress incontinence: denies Incontinence without Sensory Awareness: denies Abdominal pain: occasionally, lower abdomen Flank pain: denies Sexual complaints: _ History of Present Illness Tests reviewed: reviewed UA, referral records I have reviewed the previous health record information and history for this patient from external providers. I have reviewed and verified the staff HPI to be accurate for this encounter. Review of Systems PHQ Score Initial Depression Screen Score: 0 SCORE ROS - Provider Constitutional: denies weight loss, denies hot flashes. Eyes: denies eye problems. Gastrointestinal: denies nausea, denies vomiting. Cardiovascular: denies chest pain or angina. Integumentary: no dryness Musculoskeletal: denies musculoskeletal symptoms. ENMT: denies otolaryngeal symptoms. Respiratory: no shortness of breath. Heme/Lymph: denies easy bleeding tendency, denies easy bruising tendency. Psychiatric: no confusion, no anxiety. Genitourinary: See HPI. Physical Exam Vitals & Measurements T: 37 ???C(Oral) HR: 86(Peripheral) RR: 18 BP: 124/96 HT: 70 in HT: 179 cm WT: 85.4 kg WT: 188.275 lb BMI: 26.65 General Appearance: alert, no distress, well nourished, well developed male. Assessment/Plan Jam is a 84 yo male new pt referred by Dr. Jorge Luis Malik for gross hematuria. IPSS 10. STEPHANE 5. 1. Gross hematuria (R31.0: Gross hematuria) First episode was a few weeks ago, lasted 1 day. Has had 3 recurrences with discharge at the beginning of his stream. Shares blood resolves as he voids. No recent upper tract imaging completed. UA today negative for blood and infection. Discussed possible etiologies of hematuria. Discussed hematuria workup includes upper urinary tract imaging, evaluation of the urinary cells with urine cytology and possible a FISH test, and a cystoscopy to rule out lower urinary tract pathology. Pt aware that a distinct etiology of the hematuria may not be clear upon conclusion of the workup. The rationale for this workup has been discussed, and all questions have been answered. -Urine sample to be sent for FISH/cytology -Schedule CTU -Will schedule cystoscopy. The risks and benefits for cystoscopy have been discussed. The risks include bleeding, infection, and irritation of the bladder and urinary channel, among others. The patient, after being informed of procedural details and after questions have been answered, wishes to proceed. Full informed consent has been obtained. Will order Local anesthesia. 2. BPH with urinary obstruction (N40.1: Benign prostatic hyperplasia with lower urinary tract symptoms) S/p TURP 01/29/07 and [facility] laser of prostate 11/24/07. Not taking any BPH meds. Feels he empties completely. Denies any issues with urination. -Will evaluate prostate at time of cysto 3. Screening PSA (prostate specific antigen) (Z12.5: Encounter for screening for malignant neoplasm of prostate) S/p TRUS/bx 03/11/06. Last PSA 02/12/22 - 0.25. Monitored by PCP. Follow-up With When Contact Information Jayson LEMUS MD, URL [facility] [address], [place] [address]- [phone] Additional Instructions: sched cysto and CTU Patient Education Cystoscopy Hematuria, Adult I, Amy David, personally scribed for Dr. Lemus on 07/05/2024 10:11:39. . Documentation recorded by the scribe, Amy David, accurately reflects the services(s) I performed and decisions made by me. Authenticated by Dr. Lemus on 07/05/2024 10:13:41. Problem List/Past Medical History Ongoing BPH with urinary obstruction Gross hematuria Screening PSA (prostate specific antigen) Historical No qualifying data Procedure/Surgical History History of hernia repair. Medications albuterol, See Instructions Cipro 500 mg Tab, 500 mg= 1 tab(s), Oral, Daily gabapentin 100 mg Cap, 100 mg= 1 cap(s) glipiZIDE 10 mg Tab, 10 mg= 1 tab(s) hydrOXYzine hydrochloride 25 mg Tab, 25 mg= 1 tab(s) metformin, 500 mg, Oral, Daily omeprazole, 20 mg, Oral, Daily oxcarbazepine 300 mg Tab, 300 mg= 1 tab(s) Tylenol, 500 mg, Oral, TID Allergies codeine (more content not included)... [facility] Comment on above: Result Comment: Elec tronically Signed By: Jayson LEMUS MD\.br\Date and Time Signed: 07/05/24 10:13 EST\.br\Electronically Co-Signed By: Amy David\.br\Date and Time Co-Signed: 07/05/24 10:12 EST 02-03-2025 Note Patient Education Urology Cystoscopy Cystoscopy is a procedure that is used to help diagnose and sometimes treat conditions that affect the lower urinary tract. The lower urinary tract includes the bladder and the urethra. The urethra is the tube that drains urine from the bladder. Cystoscopy is done using a thin, tube-shaped instrument with a light and camera at the end (cystoscope). The cystoscope may be hard or flexible, depending on the goal of the procedure. The cystoscope is inserted through the urethra, into the bladder. Cystoscopy may be recommended if you have: ??? Urinary tract infections that keep coming back. ??? Blood in the urine (hematuria). ??? An inability to control when you urinate (urinary incontinence) or an overactive bladder. ??? Unusual cells found in a urine sample. ??? A blockage in the urethra, such as a urinary stone. ??? Painful urination. ??? An abnormality in the bladder found during an intravenous pyelogram (IVP) or CT scan. Cystoscopy may also be done to remove a sample of tissue to be examined under a microscope (biopsy). Tell a health care provider about: ??? Any allergies you have. ??? All medicines you are taking, including vitamins, herbs, eye drops, creams, and efxa-awm-vwpkpjv medicines. ??? Any problems you or family members have had with anesthetic medicines. ??? Any blood disorders you have. ??? Any surgeries you have had. ??? Any medical conditions you have. ??? Whether you are or may be . What are the risks? Generally, this is a safe procedure. However, problems may occur, including: ??? Infection. ??? Bleeding. ??? Allergic reactions to medicines. ??? Damage to other structures or organs. What happens before the procedure? Medicines Ask your health care provider about: ??? Changing or stopping your regular medicines. This is especially important if you are taking diabetes medicines or blood thinners. ??? Taking medicines such as aspirin and ibuprofen. These medicines can thin your blood. Do not take these medicines unless your health care provider tells you to take them. ??? Taking klka-htg-gorlgvw medicines, vitamins, herbs, and supplements. Tests You may have an exam or testing, such as: ??? X-rays of the bladder, urethra, or kidneys. ??? CT scan of the abdomen or pelvis. ??? Urine tests to check for signs of infection. General instructions ??? Follow instructions from your health care provider about eating or drinking restrictions. ??? Ask your health care provider what steps will be taken to help prevent infection. These steps may include: ? Washing skin with a germ-killing soap. ? Taking antibiotic medicine. ??? Plan to have a responsible adult take you home from the hospital or clinic. What happens during the procedure? You will be given one or more of the following: ? A medicine to help you relax (sedative). ? A medicine to numb the area (local anesthetic). ??? The area around the opening of your urethra will be cleaned. ??? The cystoscope will be passed through your urethra into your bladder. ??? Germ-free (sterile) fluid will flow through the cystoscope to fill your bladder. The fluid will stretch your bladder so that your health care provider can clearly examine your bladder orr. ??? Your doctor will look at the urethra and bladder. Your doctor may take a biopsy or remove stones. ??? The cystoscope will be removed, and your bladder will be emptied. The procedure may vary among health care providers and hospitals. What can I expect after the procedure? After the procedure, it is common to have: ??? Some soreness or pain in your abdomen and urethra. ??? Urinary symptoms. These include: ? Mild pain or burning when you urinate. Pain should stop within a few minutes after you urinate. This may last for up to 1 week. ? A small amount of blood in your urine for several days. ? Feeling like you need to urinate but producing only a small amount of urine. Follow these instructions at home: Medicines ??? Take zzyu-bya-frhjmxq and prescription medicines only as told by your health care provider. ??? If you were prescribed an antibiotic medicine, take it as told by your health care provider. Do not stop taking the antibiotic even if you start to feel better. General instructions ??? Return to your normal activities as told by your health care provider. Ask your health care provider what activities are safe for you. ??? If you were given a sedative during the procedure, it can affect you for several hours. Do not drive or operate machinery until your health care provider says that it is safe. ??? Watch for any blood in your urine. If the amount of blood in your urine increases, call your health care provider. ??? Follow instructions from your health care provider about eating or drinking restrictions. ??? If a tissue sample was removed for testing (biopsy) during your (more content not included)... [facility] 06-23-2024 History of Present illness Narrative Images from the original note were not included. Chief complaint: Post herpetic neuralgia Subjective Jam Espinal , 84 y.o., male Patient presents today fro [...] , wrist extensors , wrist flexor , home health clinical liaison strength 5/5. LUE Strength deltoid , biceps , triceps , wrist extensors , wrist flexor , home health clinical liaison strength 5/5. RLE Strength illopsoas, quadriceps, tibialis [...] reflex 0 . Gamez's sign negative. Coordination: Jptmiu-qg-mfva testing and rapid alternating movements are normal [...] and treatment options documented in this encounter [facility] 06-14-2024 History of Present illness Narrative Associated Problem(s): Gross hematuria Reports [...] referral to Urology documented in this encounter [facility] 05-17-2024 History of Present illness Narrative Associated Problem(s): Type 2 diabetes mellitus with hyperglycemia (CMS/HCC) Reports BS stable and due for A1C. Stick to ADA diet and limit carbs. Associated Problem(s): COPD exacerbation (CMS/HCC) Worsening SOB and treat with prednisone and [...] List Items Addressed This Visit COPD exacerbation (CMS/HCC) - Primary Worsening SOB and treat with prednisone and levaquin. Use albuterol every 4 hours x 48 then PRN. Relevant Medications levoFLOXacin (Levaquin) 750 MG tablet predniSONE (Deltasone) 50 MG tablet Dyslipidemia (CMS/HCC) Relevant Orders Lipid panel Adult hypothyroidism (CMS/HCC) Relevant Orders TSH T4, free Type 2 diabetes mellitus with hyperglycemia ([facility]) Reports BS stable and due for A1C. Stick to ADA diet and limit carbs. Relevant Orders Microalbumin / creatinine, urine ratio Hemoglobin A1c Encounter for long-term (current) use of medications Relevant Orders Basic metabolic panel CBC and differential Hepatic function panel Encounter for screening prostate specific antigen (PSA) measurement Relevant Orders PSA documented in this encounter [facility] Healthcare Evaluation + Plan note Future Appointments Appointment Date:08/11/2024 07:30:00 AM Scheduled Provider:Jayson LEMUS MD Location:[facility] Appointment Type:URO Procedure 15 min Diagnostic Tests PendingCreatinine 07/05/24 [facility] Evaluation + Plan note Future Appointments Appointment Date:08/11/2024 07:30:00 AM Scheduled Provider:Jayson LEMUS MD Location:[facility] Appointment Type:URO Procedure 15 min Diagnostic Tests PendingUrine Cytology ([facility]) 07/05/24 [facility] Evaluation note Diagnosis Type 2 diabetes mellitus with hyperglycemia, without long-term current use of insulin (CMS/HCC)- Primary Post herpetic neuralgia (CMS/HCC) 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 Generalized anxiety disorder (CMS/HCC) Generalized anxiety disorder Chronic obstructive pulmonary disease, unspecified COPD type (CMS/HCC) Gastroesophageal reflux disease without esophagitis Esophageal reflux Lumbar spondylosis- Primary Lumbosacral spondylosis without myelopathy Post herpetic neuralgia (CMS/HCC) 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 Type 2 diabetes mellitus with hyperglycemia, without long-term current use of insulin (CMS/HCC)- Primary Lumbar spondylosis Lumbosacral spondylosis without myelopathy Chronic obstructive pulmonary disease, unspecified COPD type (CMS/HCC) Generalized anxiety disorder (CMS/HCC) Generalized anxiety disorder Post herpetic neuralgia (CMS/HCC) 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 Gastroesophageal reflux disease without esophagitis Esophageal reflux COPD exacerbation (CMS/HCC)- Primary Obstructive chronic bronchitis with exacerbation Type 2 diabetes mellitus with hyperglycemia, without long-term current use of insulin (CMS/HCC) Dyslipidemia (CMS/HCC) Other and unspecified hyperlipidemia Adult hypothyroidism (CMS/HCC) Unspecified hypothyroidism Encounter for screening prostate specific antigen (PSA) measurement Encounter for long-term (current) use of medications Encounter for long-term (current) use of other medications documented in this encounter [facility]* Diagnosis Type 2 diabetes mellitus with hyperglycemia, without long-term current use of insulin ([facility])- Primary Post herpetic neuralgia ([facility]) 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 Generalized anxiety disorder ([facility]/HCC) Generalized anxiety disorder Chronic obstructive pulmonary disease, unspecified COPD type ([facility]) Gastroesophageal reflux disease without esophagitis Esophageal reflux Lumbar spondylosis- Primary Lumbosacral spondylosis without myelopathy Post herpetic neuralgia ([facility]) 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 Type 2 diabetes mellitus with hyperglycemia, without long-term current use of insulin ([facility])- Primary Lumbar spondylosis Lumbosacral spondylosis without myelopathy Chronic obstructive pulmonary disease, unspecified COPD type ([facility]) Generalized anxiety disorder ([facility]) Generalized anxiety disorder Post herpetic neuralgia ([facility]) 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 Gastroesophageal reflux disease without esophagitis Esophageal reflux COPD exacerbation ([facility])- Primary Obstructive chronic bronchitis with exacerbation Type 2 diabetes mellitus with hyperglycemia, without long-term current use of insulin ([facility]) Dyslipidemia ([facility]) Other and unspecified hyperlipidemia Adult hypothyroidism ([facility]) Unspecified hypothyroidism Encounter for screening prostate specific antigen (PSA) measurement Encounter for long-term (current) use of medications Encounter for long-term (current) use of other medications Gross hematuria- Primary documented in this encounter [facility] HealthcareEvaluation note* Diagnosis Type 2 diabetes mellitus with hyperglycemia, without long-term current use of insulin ([facility])- Primary Post herpetic neuralgia ([facility]) 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 Generalized anxiety disorder ([facility]) Generalized anxiety disorder Chronic obstructive pulmonary disease, unspecified COPD type ([facility]) Gastroesophageal reflux disease without esophagitis Esophageal reflux Lumbar spondylosis- Primary Lumbosacral spondylosis without myelopathy Post herpetic neuralgia ([facility]) 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 Type 2 diabetes mellitus with hyperglycemia, without long-term current use of insulin ([facility])- Primary Lumbar spondylosis Lumbosacral spondylosis without myelopathy Chronic obstructive pulmonary disease, unspecified COPD type ([facility]) Generalized anxiety disorder ([facility]) Generalized anxiety disorder Post herpetic neuralgia ([facility]) 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 Gastroesophageal reflux disease without esophagitis Esophageal reflux COPD exacerbation (CMS/HCC)- Primary Obstructive chronic bronchitis with exacerbation Type 2 diabetes mellitus with hyperglycemia, without long-term current use of insulin (CMS/HCC) Dyslipidemia (CMS/HCC) Other and unspecified hyperlipidemia Adult hypothyroidism (CMS/HCC) Unspecified hypothyroidism Encounter for screening prostate specific antigen (PSA) measurement Encounter for long-term (current) use of medications Encounter for long-term (current) use of other medications Gross hematuria- Primary Post herpetic neuralgia (CMS/HCC)- Primary 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 documented in this encounter [facility] HealthcareEvaluation note* Diagnosis Type 2 diabetes mellitus with hyperglycemia, without long-term current use of insulin (CMS/HCC)- Primary Post herpetic neuralgia (CMS/HCC) 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 Generalized anxiety disorder (CMS/HCC) Generalized anxiety disorder Chronic obstructive pulmonary disease, unspecified COPD type (CMS/HCC) Gastroesophageal reflux disease without esophagitis Esophageal reflux Lumbar spondylosis- Primary Lumbosacral spondylosis without myelopathy Post herpetic neuralgia (CMS/HCC) 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 Type 2 diabetes mellitus with hyperglycemia, without long-term current use of insulin (CMS/HCC)- Primary Lumbar spondylosis Lumbosacral spondylosis without myelopathy Chronic obstructive pulmonary disease, unspecified COPD type (CMS/HCC) Generalized anxiety disorder (CMS/HCC) Generalized anxiety disorder Post herpetic neuralgia (CMS/HCC) 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 Gastroesophageal reflux disease without esophagitis Esophageal reflux COPD exacerbation (CMS/HCC)- Primary Obstructive chronic bronchitis with exacerbation Type 2 diabetes mellitus with hyperglycemia, without long-term current use of insulin (CMS/HCC) Dyslipidemia (CMS/HCC) Other and unspecified hyperlipidemia Adult hypothyroidism (CMS/HCC) Unspecified hypothyroidism Encounter for screening prostate specific antigen (PSA) measurement Encounter for long-term (current) use of medications Encounter for long-term (current) use of other medications Gross hematuria- Primary Medicare annual wellness visit, subsequent- Primary Type 2 diabetes mellitus with hyperglycemia, without long-term current use of insulin (CMS/HCC) Dyslipidemia (CMS/HCC) Other and unspecified hyperlipidemia Chronic obstructive pulmonary disease, unspecified COPD type (CMS/HCC) Statin myopathy Toxic myopathy Type 2 diabetes mellitus with other specified complication (CMS/HCC) documented in this encounter [facility] HealthcareHospital course Narrative No data available for this section [facility] Hospital Discharge instructions No data available for this section [facility] Progress note No data available for this section [facility] reason for visit Narrative* Consultation (Routine) - Closed Specialty Diagnoses / Procedures Referred By Contac t Referred To Contact Neurology Diagnoses Other postherpetic nervous system involvement (CMS/HCC) Procedures [place] OFFICE/OUTPATIENT [facility] Yajaira Marina MD [address] [place] [address] Phone: tel: fax: Alessandro Abdi MD [address] [place] [address] Phone: tel: fax: Referral ID Status Reason Start Date Expiration Date V isits Requested Visits Authorized [id number] Closed Consult and Treat 04/23/2024 10/20/2024 1 1 [facility] Summary Purpose Family History No Family History Records Found No data available for this section No data available for this section No Family History Records FoundNo Family History Records FoundNo Family History Records Found Advance Directives No Advanced Directives Records FoundNo Advanced Directives Records FoundNo Advanced Directives Records FoundNo Advanced Directives Records Found Additional Source Comments (unrecognized sect ion and content) No Status Records FoundNo Status Records FoundNo Status Records FoundNo Status Records Found INFORMATION SOURCE (unrecogn ized section and content) DATE CREATED AUTHOR 09/19/2022 [facility] pital DATE CREATED AUTHOR AUTHOR'S ORGANIZ ATION 07/07/2024 [facility] DATE CREATED AUTHOR AUTHOR'S ORGANIZ ATION 07/09/2024 [facility] EPIC DATE CREATED AUTHOR AUTHOR'S ORGANIZ ATION 07/11/2024 [facility] Care Teams (unrecognized sec tion and content) Yarn Worker Relationship Specialty Start Date End Date Jorge Luis Malik MD [address] [facility] [place] [phone] PCP - General Family Medicine 12/02/23 Jorge Luis Malik MD [address] [place] [phone] PCP - Brittany SORIA 04/02/24 Yajaira Hassan MD [address] [place] [address] Referring Physician 04/23/24 Yarn Worker Relationship Specialty Start Date End Date Jorge Luis Malik MD [address] [place] [phone] PCP - General Family Medicine 12/02/23 Jorge Luis Malik MD [address] [place] [phone] PCP - Brittany SORIA 04/02/24 Yajaira Hassan MD [address] [place] [address] Referring Physician 04/23/24 Yarn Worker Relationship Specialty Start Date End Date Jorge Luis Malik MD [address] [place] [phone] PCP - General Family Medicine 12/02/23 Yarn Worker Relationship Specialty Start Date End Date Jorge Luis Malik MD [address] [place] [phone] PCP - General Family Medicine 12/02/23 Jorge Luis Malik MD [address] [place] [phone] PCP - Brittany SORIA 04/02/24 Yajaira Hassan MD [address] [place] [address] Referring Physician 04/23/24 Yarn Worker Relationship Specialty Start Date End Date Jorge Luis Malik MD [address] [place] [phone] PCP - General Family Medicine 12/02/23 Jorge Luis Malik MD [address] [place] [phone] PCP - Brittany SORIA 04/02/24 Yajaira Hassan MD [address] [place] [address] Referring Physician 04/23/24 Yarn Worker Relationship Specialty Start Date End Date Jorge Luis Malik MD [address] [place] [phone] PCP - General Family Medicine 12/02/23 Jorge Luis Malik MD [address] [place] [phone] PCP - Brittany SORIA 04/02/24 Yajaira Hassan MD [address] [place] [phone] Referring Physician 04/23/24 Yarn Worker Relationship Specialty Start Date End Date Jorge Luis Malik MD [address] [place] [phone] PCP - General Family Medicine 12/02/23 Jorge Luis Malik MD [address] [place] [phone] PCP - Brittany SORIA 04/02/24 Yajaira Hassan MD [address] [place] [address] Referring Physician 04/23/24 Yarn Worker Relationship Specialty Start Date End Date Jorge Luis Malik MD [address] [place] [phone] PCP - General Family Medicine 12/02/23 Jorge Luis Malik MD [address] [place] [phone] PCP - Brittany SORIA 04/02/24 Yajaira Hassan MD [address] [place] [address] Referring Physician 04/23/24 Yarn Worker Relationship Specialty Start Date End Date Jorge Luis Malik MD [address] [place] [phone] PCP - General Family Medicine 12/02/23 Jorge Luis Malik MD [address] [place] [phone] PCP - Brittany SORIA 04/02/24 Yajaira Hassan MD [address] [place] [phone] Referring Physician 04/23/24 Yarn Worker Relationship Specialty Start Date End Date Jorge Luis Malik MD [address] [place] [address] PCP - General Family Medicine 12/02/23 Jorge Luis Malik MD [address] [place] [address] PCP - Brittany SORIA 04/02/24 Yajaira Hassan MD [address] [place] [address] Referring Physician 04/23/24 Reason for Visit (unrecogniz ed section and content) Reason Comments Shortness of Breath Reason Comments Follow-up labs Blood in Urine Only seeing blood wh en first uses restroom in am Reason Comments Medicare Annual Wellness Visit Subsequen t Wellness FOR RECORDS PERTAINING TO PATIENTS WHO ARE [...] BE BASED ON THE PRIMARY CLINICAL RECORDS. [employer] provides no warranty or guarantee of the accuracy or completeness of information in this document.
[2024-07-12 14:11] LABS: Estimated GFR (African America 53 (>=60 mL/min/1.73m^2); Estimated GFR (Non-African Ame 44 (>=60 mL/min/1.73m^2)
--- NOTE | 2024-07-12 15:14 | CT_ITS ---
[address] [address] Patient Name: JAM RAMIREZ MRN: [id number] date: 1940 Sex: M Assigned Patient Location: LAB Current Patient Location: Accession/Order Number: [id number] Exam Date: 07/12/2024 14:50 Report Date: 07/13/2024 06:17 At the request of: LALO SOUZA Procedure: CT abdomen pelvis wo/w con EXAMINATION: CT abdomen pelvis wo/w con HISTORY: Gross Hematuria COMPARISON: No relevant comparison available. TECHNIQUE: Axial, Coronal, and Sagittal images were obtained without and/or with IV contrast as indicated by examination type. Dose reduction techniques were achieved by using automated exposure control and/or adjustment of mA and/or kV according to patient size and/or use of iterative reconstruction technique. FINDINGS: LUNG BASES: No visible pulmonary or pleural disease. LIVER: No enlargement, atrophy, suspicious density, or significant focal lesion. BILIARY: No dilatation or calcification. PANCREAS: No lesion, fluid collection, or abnormal duct dilatation. SPLEEN: No enlargement or focal lesion. ADRENALS: No mass or enlargement. KIDNEYS: Fluid density simple appearing 4.3 cm cyst arising from superior pole of right kidney. No mass, obstruction, or calcification. BOWEL/MESENTERY: Multiple small diverticula involving distal transverse colon through sigmoid colon; no acute inflammatory changes. No visible mass, obstruction, or bowel wall thickening. Normal appendix. AORTA/VASCULAR: Minimal saccular aneurysm of infrarenal aorta, 2.6 cm in total diameter. Mild-moderate atherosclerotic disease. RETROPERITONEUM: No mass or adenopathy. LYMPH NODES: No adenopathy. URINARY BLADDER: Within the posterior right aspect of urinary bladder adjacent the ureter insertion is a 1.4 cm rounded, but slightly irregular fluid density structure. Given its fluid density this favors a ureterocele, however, on the coronal view there appears to be irregular spiculations from its inferior margin. No bladder wall thickening or stones. PELVIC ORGANS: No visible mass. Pelvic organs appropriate for patient age. ABDOMINAL WALL: Fat filled 5.4 cm ventral hernia just inferior to the sternoxiphoid; wide neck with no strangulation. Small fat filled umbilical hernia without strangulation. BONES: Marked degenerative disc disease L1-L2 and L5-S1. No bony lesion or fracture. OTHER: Negative. CT/CT abdomen pelvis wo/w con IMPRESSION: 1. 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 Ultrasound evaluation is recommended. 2. Colonic diverticulosis. 3. Tiny saccular aneurysm of infrarenal aorta. 4. Supraumbilical and umbilical small fat filled hernias without strangulation. Electronically authenticated by: CARLOS SELF Date: 07/13/2024 06:17
== END 2024-07-12 13:55 | disposition home or self-care (01) ==
LOC: LAB 13:54
PROVIDERS: PCP Family Medicine; Visit Provider Urology
DX: R31.0 Gross hematuria (principal); N40.1 Benign prostatic hyperplasia with lower urinary tract symptoms; K57.90 Diverticulosis of intestine, part unspecified, without perforation or abscess without bleeding; K42.9 Umbilical hernia without obstruction or gangrene
CPT/HCPCS: 36415; 74178; 82565; Q9966

== ENCOUNTER 2024-08-16 13:13 | Outpatient (OUT) | payer MEDICARE, SELFPAY ==
--- NOTE | 2024-08-16 13:26 | XR_ITS ---
The [address] [address] Patient Name: JAM RAMIREZ MRN: [id number] date: 1940 Sex: M Assigned Patient Location: [facility] Current Patient Location: [facility] Accession/Order Number: [id number] Exam Date: 08/16/2024 15:17 Report Date: 08/16/2024 15:18 At the request of: LALO SOUZA MD Procedure: XR chest 2V Chest 2 views CLINICAL HISTORY: Preop exam COMPARISON: CT chest 07/02/2021. FINDINGS: Heart appears normal in size. Scattered lung scarring. No consolidation pneumothorax pleural effusion or free air. XR/XR chest 2V IMPRESSION: SCATTERED LUNG SCARRING. NO CONSOLIDATION TO SUGGEST PNEUMONIA. Impression dictated by: Earnest Garcia Jr., D.O.08/16/2024 3:18 PM Dictation Location: [place] [address] Electronically authenticated by: [id number] Y Date: 08/16/2024 15:18
--- NOTE | 2024-08-16 13:26 | ECG_ITS ---
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 Measurements Intervals [place] Rate: 81 P: 46 NV: 168 QRS: -28 QRSD: 124 T: 29 QT: 415 QTc: 483 Interpretive Statements SINUS RHYTHM BORDERLINE LEFT AXIS DEVIATION [QRS AXIS < -20] RIGHT BUNDLE BRANCH BLOCK [120+ ms QRS DURATION, UPRIGHT V1, 40+ ms S IN I/aVL/V4/V5/V6] MINIMAL VOLTAGE CRITERIA FOR LVH, CONSIDER NORMAL VARIANT [MEETS CRITERIA IN ONE OF: R(aVL), S(V1), R(V5), R(V5/V6)+S(V1)] Compared to ECG 07/02/2021 19:08:00 Right bundle-branch block now present Ventricular premature complex(es) no longer present Electronically Signed On 08-16-2024 17:39:20 EDT by KATHY TELLEZ M.D.
--- NOTE | 2024-08-16 13:58 | P.GSHP_ITS ---
History of Present Illness History of Present Illness Chief complaint: bladder tumor Narrative: Patient presents for presurgical testing. Please see HPI from Dr. Lemus dated August 11, 2024. Review of Systems ROS Narrative Please see ROS from Dr. Lemus dated August 11, 2024. Patient admits to dyspnea on exertion. [facility] Medical History (Updated 08/16/24 @ 13:43 by Esthela Guerrero NP) Dyspnea on exertion ?R06.09 - Other forms of dyspnea (ICD-10) GERD (gastroesophageal reflux disease) ?K21.9 - Gastro-esophageal reflux disease without esophagitis (ICD-10) Herpes zoster ?B02.9 - Zoster without complications (ICD-10) Post herpetic neuralgia ?B02.29 - Other postherpetic nervous system involvement (ICD-10) Diabetes ?E11.9 - Type 2 diabetes mellitus without complications (ICD-10) Hematuria ?R31.9 - Hematuria, unspecified (ICD-10) BPH with obstruction/lower urinary tract symptoms ?N40.1 - Benign prostatic hyperplasia with lower urinary tract symptoms (ICD- 10) ?N13.8 - Other obstructive and reflux uropathy (ICD-10) Bladder tumor ?D49.4 - Neoplasm of unspecified behavior of bladder (ICD-10) Surgical History (Updated 08/16/24 @ 13:43 by Esthela Guerrero NP) History of colonoscopy ?Z98.890 - Other specified postprocedural states (ICD-10) H/O inguinal hernia repair ?Z98.890 - Other specified postprocedural states (ICD-10) ?Z87.19 - Personal history of other diseases of the digestive system (ICD-10) H/O cystoscopy ?Z98.890 - Other specified postprocedural states (ICD-10) History of hernia repair ?Z98.890 - Other specified postprocedural states (ICD-10) ?Z87.19 - Personal history of other diseases of the digestive system (ICD-10) Family History (Updated 08/16/24 @ 13:43 by Esthela Guerrero NP) Other Family history of cancer Family history of stroke Rheumatoid arthritis Social History (Updated 08/16/24 @ 13:38 by Esthela Guerrero NP) Within the past year, how often did you have a drink containing alcohol: monthly or less Smoking status: Former smoker Non-prescribed substance use: denies use Highest level of school completed/degree received: high school graduate Meds Home Medications and Allergies Home Medications ?Medication ?Instructions ?Recorded ?Confirmed ?Type glipizide 10 mg tablet 10 mg PO QDAY 11/06/22 08/16/24 History metformin 500 mg tablet,extended 500 mg PO QDAY 11/06/22 08/16/24 History release 24 hr acetaminophen 325 mg tablet 325 mg PO Q6H PRN pain 08/16/24 08/16/24 History (Tylenol) albuterol sulfate 90 mcg/actuation 2 inh inhalation Q6H PRN shortness 08/16/24 08/16/24 History aerosol inhaler of breath or wheezing gabapentin 100 mg capsule 100 mg PO Q8H 08/16/24 08/16/24 History hydroxyzine HCl 25 mg tablet 25 mg PO Q8H 08/16/24 08/16/24 History omeprazole 20 mg capsule,delayed 20 mg PO DAILY 08/16/24 08/16/24 History release Allergies Allergy/AdvReac Type Severity Reaction Status Date / Time codeine Allergy Severe Vomiting Verified 08/16/24 13:33 Exam Narrative Exam Narrative: Constitutional: Awake, alert, comfortable, well-appearing, nontoxic, interactive, vital signs as charted Head: Normocephalic, atraumatic Neck: Supple, normal appearance, normal range of motion, no meningeal signs, no lymphadenopathy Respiratory: No respiratory distress, breath sounds clear Cardiovascular: Regular rate and rhythm, strong and regular heart tones Abdomen: Nontender, normal bowel sounds, soft, no CVA tenderness Musculoskeletal: Normal gait, no swelling or edema Skin: No rashes or induration, no lesions, only visible skin inspected Neuro: No neurological deficits, normal sensation Psychiatric: Oriented ?3, normal affect Assessment and Plan Assessment and Plan (1) Bladder tumor: (2) BPH with obstruction/lower urinary tract symptoms: (3) Hematuria: Plan Cystoscopy, TURBT scheduled with Dr. Lemus August 19, 2024.
[2024-08-16 14:15] LABS: Basophils Absolute Auto 0.1 10^3/uL (0.0-0.1); Basophils Percent Auto 1.2 % (0.2-2.0); Eosinophils Absolute Auto 0.4 10^3/uL (0.0-0.7); Eosinophils Percent Auto 6.1 % (0.9-7.0); Hematocrit 35.9 % (42.0-54.0); Hemoglobin 12.4 g/dL (14.0-18.0); Immature Granulocytes Abs Auto 0.03 10^3/uL (0.00-0.03); Immature Granulocytes Pct Auto 0.4 % (0.0-0.5); Lymphocytes Absolute Auto 1.4 10^3/uL (1.2-3.8); Lymphocytes Percent Auto 18.6 % (20.5-60.0); Mean Corpuscular HGB Conc 34.5 g/dL (29.9-35.2); Mean Corpuscular Volume 89.8 fL (80.0-94.0); Mean Platelet Volume 9.7 fL (9.5-13.5); Monocytes Absolute Auto 0.6 10^3/uL (0.3-0.8); Monocytes Percent Auto 8.8 % (1.7-12.0); Neutrophils Absolute Auto 4.7 10^3/uL (1.4-6.5); Neutrophils Percent Auto 64.9 % (43.0-75.0); Platelet Count 389 10^3/uL (150-450); White Blood Count 7.3 10^3/uL (4.0-11.0)
[2024-08-16 14:20] LABS: Anion Gap 10.8; BUN Creatinine Ratio 15.6; Calcium 9.2 mg/dL (8.5-10.1); Carbon Dioxide 29.7 mmol/L (21.0-32.0); Chloride 103 mmol/L (98-107); Estimated GFR (African America >60 (>=60 mL/min/1.73m^2); Estimated GFR (Non-African Ame 54 (>=60 mL/min/1.73m^2); Glucose 130 mg/dL (74-106); Potassium 3.5 mmol/L (3.5-5.1); Sodium 140 mmol/L (136-145)
[2024-08-16 14:36] LABS: INR 1.04; Partial Thromboplastin Time 27.8 sec (22.3-36.2)
== END 2024-08-16 13:14 | disposition home or self-care (01) ==
LOC: PST 13:14
PROVIDERS: PCP Family Medicine; Visit Provider Urology
DX: Z01.810 Encounter for preprocedural cardiovascular examination (principal); Z01.812 Encounter for preprocedural laboratory examination; Z01.818 Encounter for other preprocedural examination; D49.4 Neoplasm of unspecified behavior of bladder; R31.9 Hematuria, unspecified
CPT/HCPCS: 71046; 80048; 85025; 85610; 85730; 93005; G0463

== ENCOUNTER 2024-08-26 09:05 | Day surgery (SDC) | payer MEDICARE, SELFPAY ==
[2024-08-16 13:52] VITALS: BP 173/95; PULSE 83; TEMP 36.6; O2SAT 97; BMI 26.4
[2024-08-26] VITALS (8 sets, daily range): BP systolic 149–187; BP diastolic 93–112; PULSE 69–95; TEMP 36.4–37.1; O2SAT 92–99; BMI 26.4
[2024-08-26 09:30] LABS: Glucometer 183 mg/dL (74-106)
[2024-08-26] MEDS: LACTATED RINGER'S SOLUTION 1,000 ML 50 ML IV ×2 (09:53→10:47)
[2024-08-26] MEDS: CEFAZOLIN SODIUM 1 GM/50 ML D5W PREMIX IV (10:47)
--- NOTE | 2024-08-26 11:35 | P.URON_ITS ---
Urology Surgery Operative Note Operative Note Procedure Date: 08/26/24 Time Out Performed: yes Pre-op Diagnosis: Bladder tumor Post-op Diagnosis: same as pre-op Procedures performed: 1. Cystoscopy. 2. 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 He now presents for TURBT. He has signed an informed consent after risks were explained. Detailed description of Procedure: The patient was brought to the operating room and placed on the operating room table in the supine position. SCDs were placed on the lower extremities and turned on and functioning during the entire case. Timeout was done by all parties in the room. We all agreed upon the patient's identification and the pl anned procedures for this patient. Genn. anesthesia was then administered. The patient was then repositioned into the modified dorsal lithotomy position. All pressure points were satisfactorily padded. Genitalia were sterilely prepped and draped in usual fashion. I started by passing a 26 Tunisian Olympus resectoscope with a standard bipolar loop electrode per urethra and into the bladder. The anterior urethra was normal. Prostatic urethra was open. Panendoscopy in the bladder revealed the previously noted tumor at the floor proximal to the right UO. I then uniformly and deeply resected this tumor. I made sure to resect into the muscle wall. The muscle fibers were clearly seen during the deep resection. The resection bed was coagulated. There was a tiny satellite lesion in the mid trigone. This was also resected and coagulated. The Ilich was used to get all the tumor pieces out and these were sent for permanent sections. Upon completion, we verified that there was no evidence of bleeding and all tumor pieces were removed. The scope was then removed after verifying clear E flux of urine from the right UO. I then placed an 18 Tunisian Jama catheter in the bladder. 10 cc of fluid was placed in the balloon and clear urine drained. The anesthetic was then reversed. He was then transferred [facility] a [facility] bed and wheeled to PACU in stable condition. Urinary Catheter Management Urinary Catheter Management Urethral: Cath placed during this visit: no
--- NOTE | 2024-08-26 13:02 | PC.NURSE ---
Leg bag switched to 2000cc bag as discussed with patient and his daughter; has leakage of urine blood tinged around meatus
--- NOTE | 2024-08-26 13:24 | PC.NURSE ---
Patient did not want leg bag and it was switched to large overnight bag per his request.
== END 2024-08-26 13:05 | disposition home or self-care (01) ==
PROVIDERS: PCP Family Medicine; Visit Provider Urology
PROC: (CPT 52235; principal; 2024-08-26 10:15)
DX: C67.9 Malignant neoplasm of bladder, unspecified (principal); R31.0 Gross hematuria; N40.1 Benign prostatic hyperplasia with lower urinary tract symptoms; E11.9 Type 2 diabetes mellitus without complications; J44.9 Chronic obstructive pulmonary disease, unspecified; K21.9 Gastro-esophageal reflux disease without esophagitis; Z79.84 Long term (current) use of oral hypoglycemic drugs; Z87.891 Personal history of nicotine dependence; R06.09 Other forms of dyspnea; E78.5 Hyperlipidemia, unspecified; I10 Essential (primary) hypertension
CPT/HCPCS: 52235; 36415; 82948; 88307; J0131; J0690; J1100; J2405; J2704; J3010

== ENCOUNTER 2024-09-09 13:44 | Outpatient (OUT) | payer MEDICARE, SELFPAY ==
--- NOTE | 2024-09-09 14:00 | CA_ITS ---
Patient Name: JAM RAMIREZ MR#: [id number] : 1940 Exam Date: 09/09/2024 Ordering Doctor: DR ILYA GILL M.D. ECHOCARDIOGRAM REPORT PROCEDURE: CA ECHO DOPPLER COMPLETE INDICATIONS: Dyspnea on exertion, COPD, diabetes COMPARISON: None. DESCRIPTION: COMPLETE ECHOCARDIOGRAM Real-time transthoracic echocardiography with 2D, M-mode, spectral and color flow Doppler performed. QUALITY: Technical quality was good. LEFT VENTRICLE: Normal chamber size. Moderate left ventricular hypertrophy. LV EF: Global left ventricular systolic function is normal; visually estimated ejection fraction is 55%. No significant wall motion abnormalities. DIASTOLIC: Diastolic function is indeterminate. ATRIAL SEPTUM: Visually appears intact. LEFT ATRIUM: Mild dilatation. RIGHT ATRIUM: Normal chamber size. RIGHT VENTRICLE: Normal chamber size. Normal right ventricular systolic function. TRICUSPID VALVE: Normal mobility and thickness. No stenosis with trivial regurgitation. No evidence of pulmonary hypertension. RVSP 31 mmHg MITRAL VALVE: Normal mobility and thickness. No evidence of mitral valve stenosis. There is no mitral annular calcification. Trivial mitral regurgitation. AORTIC VALVE: Normal trileaflet appearance. Thickened aortic valve. Normal leaflet mobility. No evidence of aortic valve stenosis. Mild aortic regurgitation. AORTIC ROOT: Aortic root is dilated (4.3 cm). Ascending aorta is dilated (4.2 cm). PULMONIC VALVE: Normal thickness and mobility. No stenosis. No regurgitation. PERICARDIUM: No evidence of pericardial effusion. IVC: Collapses with inspirations. IVC is normal in size. CONCLUSION: 1. Global left ventricular systolic function is normal; visually estimated ejection fraction is 55% 2. Normal right ventricular size and systolic function 3. Diastolic function is indeterminate 4. The left atrium is mildly dilated 5. Mild aortic valve regurgitation 6. The aortic root and ascending aorta are mildly dilated Adult Echocardiography Procedure Report Left Ventricle LVEDD (3.7 - 5.6 cm): 4.39 cm LVESD (2.2 - 4.0 cm): 3.58 cm LVIVS thickness (0.6 - 1.2 cm): 1.67 cm LVPW thickness (0.5 - 1.0 cm): 1.32 cm e': 0.06 m/s E - e': 8.24 LVOT Max Gradient: 2.53 mm[Hg], 2.53 mm[Hg] Peak Velocity (LVOT): 0.80 m/s, 0.80 m/s LVOT Diameter 2.58 cm Left Atrium LA Volume Index (2D A2C): 41.02 ml/m2 Left Atrium Systolic Dimension: 4.21 cm Mitral Valve MV E to A Ratio: 0.54 Mitral Valve A-Wave Peak Velocity: 0.86 m/s Mitral Valve E-Wave Peak Velocity: 0.46 m/s Right Ventricle Aorta AO Root Diam: 4.25 cm Aortic Valve AoV Area (Peak Red): 3.83 cm2, 3.83 cm2 AoV Area (VTI): 3.23 cm2, 3.18 cm2 Deceleration Ralls: 1.54 m/s2 Pressure Half-Time: 612.98 ms Peak Velocity(Antegrade Flow): 1.09 m/s Peak Gradient(Antegrade Flow): 4.72 mm[Hg] Mean Velocity(Antegrade Flow): 0.75 m/s Mean Gradient(Antegrade Flow): 2.57 mm[Hg] Velocity Time Integral: 23.83 cm Tricuspid Valve Peak Velocity (Regurgitant Flow): 2.48 m/s, 2.65 m/s Pulmonic Valve Mean Gradient: 1.58 mm[Hg] Mean Velocity: 0.58 m/s Peak Velocity: 0.87 m/s, 0.87 m/s Peak Gradient: 3.01 mm[Hg], 3.01 mm[Hg] Right Atrium Dictated by: Ilya Gill M.D. on 09/09/2024 at 16:05 Approved by: Ilya Gill M.D. on 09/09/2024 at 16:08
== END 2024-09-09 13:45 | disposition home or self-care (01) ==
LOC: CARD 13:44
PROVIDERS: PCP Family Medicine; Visit Provider Internal Medicine Interventional Cardiology
DX: R06.09 Other forms of dyspnea (principal)
CPT/HCPCS: 93306

== ENCOUNTER 2024-09-27 13:14 | Outpatient (OUT) | payer MEDICARE, SELFPAY ==
[2024-09-27 14:03] LABS: Anion Gap 12.5; BUN Creatinine Ratio 17.2; Calcium 8.9 mg/dL (8.5-10.1); Carbon Dioxide 30.3 mmol/L (21.0-32.0); Chloride 100 mmol/L (98-107); Estimated GFR (African America >60 (>=60 mL/min/1.73m^2); Estimated GFR (Non-African Ame 54 (>=60 mL/min/1.73m^2); Glucose 185 mg/dL (74-106); Potassium 3.8 mmol/L (3.5-5.1); Sodium 139 mmol/L (136-145)
== END 2024-09-27 13:15 | disposition home or self-care (01) ==
LOC: LAB 13:15
PROVIDERS: PCP Family Medicine; Visit Provider Internal Medicine Interventional Cardiology
DX: I11.9 Hypertensive heart disease without heart failure (principal)
CPT/HCPCS: 36415; 80048

== ENCOUNTER 2025-02-01 13:29 | Outpatient (OUT) | payer MEDICARE, SELFPAY ==
--- OUTSIDE RECORDS SUMMARY | 2025-02-01 13:32 | XMS_ITS | Encounter Summary ---
Author Organization [facility] Address [address] [place] [address] Care Team Providers Care Nail Sticker Name Role Phone Gerson Malik MD Primary Care Provider [phone] Thomas Hassan MD Unavailable Gerson Malik MD Unavailable Encounter Details Date Type Department Care Team (Late st Contact Info) Description 12/06/2023 Clinisync Result Encounter [facility] External Department Unsolicited Gerson Malik MD [address] [place] [address] Social History Tobacco Use Types Packs/Day Years Used Date Smoking Tobacco: Former Cigarettes 1 19 1 950 - 1969 Smokeless Tobacco: Never PHQ-2 Answer Date Recorded Patient Health Questionnaire-2 Score 0 07/07/2023 Sex and Gender Information Value Date Recorded Sex Assigned at Not on file Legal Sex Male 10:18 AM EDT Gender Identity Not on file Sexual Orientation Not on file documented as of this encounter Plan of Treatment Not on file documented as of this encounter Procedures Procedure Name Priority Date/Time Associated Diagnosis Comments XR LUMBAR SPINE 2 OR 3V 12/06/2023 4:26 AM EDT documented in this encounter Results * XR LUMBAR SPINE 2 OR 3V (12/06/2023 4:26 AM EDT) Anatomical Region Laterality Modality Radiographic Che ging 12/06/2023 4:26 AM EDT Narrative 12/06/2023 4:29 [place] [address] XRay Report Signed Patient: JAM ESPINAL Jr. MR#: [id number] : 1940 Acct:[id number] Age/Sex: 83 / M ADM Date: 12/03/23 Loc: [facility] Attending Dr: Gerson Malik M.D. Ordering Physician: Gersno Malik M.D. Date of Service: 12/03/23 Procedure(s): XR lumbar spine 2-3V Accession Number(s): [id number] cc: Gerson Malik M.D. [facility] [place] [address] Patient Name: JAM ESPINAL MRN: [id number] date: 1940 Sex: M Assigned Patient Location: [facility] Current Patient Location: Accession/Order Number: [id number] Exam Date: 12/03/2023 13:05 Report Date: 12/06/2023 04:26 At the request of: GERSON MALIK Procedure: XR lumbar spine 2-3V EXAMINATION: XR lumbar spine 2-3V HISTORY: Lumbar spondylosis M47.816 COMPARISON: No relevant comparison available. FINDINGS: BONES: Mild left convex curvature of lumbar spine. Moderate degenerative facet arthropathy L3-L4 through L5-S1. Minimal grade 1 retrolisthesis of L2 on 3. No compression fracture. DISC SPACES: Moderate narrowing L1-L2. Marked narrowing L5-S1. PARASPINOUS: Marked atherosclerotic disease of distal aorta. OTHER: Negative. XR/XR lumbar spine 2-3V IMPRESSION: 1. Multilevel degenerative disc disease and facet arthropathy. 2. No appreciable fracture or acute abnormality. Electronically authenticated by: ALESSANDRO ADAMES Date: 12/06/2023 04:26 Dictated By: Alessandro Adames M.D. Signed By: 12/06/23 0429 DD/ 5 TD/TT: Offset Assistant Press Operator: Procedure Note Radiology, Radiologist, MD - 12/06/2023 [facility] [place] [id number] XRay Report Signed Patient: JAM ESPINAL Jr.MR#: [id number] : 1940cct:[id number] Age/Sex: 83 / MADM Date: 12/03/23 Loc: [facility] Attending Dr: Gerson Malik M.D. Ordering Physician: Gerson Malik M.D. Date of Service: 12/03/23 Procedure(s): XR lumbar spine 2-3V Accession Number(s): [id number] cc: Gerson Malik M.D. [place] [address] Patient Name: JAM ESPINAL MRN: [id number] date: 1940 Sex: M Assigned Patient Location: [facility] Current Patient Location: Accession/Order Number: [id number] Exam Date: 12/03/2023 13:05 Report Date: 12/06/2023 04:26 At the request of: GERSON MALIK Procedure: XR lumbar spine 2-3V EXAMINATION: XR lumbar spine 2-3V HISTORY: Lumbar spondylosis M47.816 COMPARISON: No relevant comparison available. FINDINGS: BONES: Mild left convex curvature of lumbar spine. Moderate degenerativefacet arthropathy L3-L4 through L5-S1. Minimal grade 1 retrolisthesis of L2 on3. No compression fracture. DISC SPACES: Moderate narrowing L1-L2. Marked narrowing L5-S1. PARASPINOUS: Marked atherosclerotic disease of distal aorta. OTHER: Negative. XR/XR lumbar spine 2-3V IMPRESSION: 1. Multilevel degenerative disc disease and facet arthropathy. 2. No appreciable fracture or acute abnormality. Electronically authenticated by: ALESSANDRO ADAMES Date: 12/06/2023 04:26 Dictated By: Alessandro Adames M.D. Signed By:12/06/23428 DD/ 5 TD/TT: Offset Assistant Press Operator: Gerson Malik MD IMG XR PROCEDURES Final Result documented in this encounter Visit Diagnoses Not on filedocumented in this encounter Care Teams Nail Sticker Relationship Specialty Start Date End Date Gerson Malik MD PCP - General Family Medicine 12/02/23 Gerson Malik MD [address] [place] [id number] PCP - Brittany SORIA 04/02/24 Thomas Hassan MD [address] [place] [id number] Referring Physician 04/23/24 documented as of this encounter
--- OUTSIDE RECORDS SUMMARY | 2025-02-01 13:32 | XMS_ITS | Clinical Summary ---
Author Organization [employer] Address [facility] [id number] [address] [place] [address] Care Team Providers Care Legger Press Operator Name Role Phone Jorge Luis Sotelo MD Primary Care Provider [phone] Allergies Active Allergy Reactions Criticality Noted Date Comments Codeine Vomiting Low 06/23/2019 Medications naproxen sodium (ALEVE) 220 mg capsule Take 220 mg by mouth every 8 (eight) hours as needed. Active omeprazole (PriLOSEC) 20 mg capsule Take 20 mg by mouth daily. Active Active Problems No known active problems Family History Medical History Relation Name Comments Heart disease Father Stroke Father Cancer Mother Relation Name Status Comments Father Mother Social History Tobacco Use Types Packs/Day Years Used Date Smoking Tobacco: Former Smokeless Tobacco: Never Alcohol Use Standard Drinks/Week Comments Never 0 (1 standard drink = 0.6 oz pur e alcohol) AUDIT-C Answer Date Recorded Frequency of Alcohol Consumption Never 06/23/2019 Average Number of Drinks Not on file 020 Frequency of Binge Drinking Not on file 06/03 Childcare Answer Date Recorded Childcare Unknown 11/11/2018 Employment Answer Date Recorded Employment Unknown 11/11/2018 Purpose - Life Answer Date Recorded Purpose and direction in life Unknown Sex and Gender Information Value Date Recorded Sex Assigned at Not on file Legal Sex Male 11:35 AM EDT Gender Identity Not on file Sexual Orientation Not on file Last Filed Vital Signs Vital Sign Reading Time Taken Comments Blood Pressure 153/99 07/20/2019 2:45 PM EST Pulse 63 07/20/2019 2:55 PM EST Temperature 36.4 C (97.6 F) 07/20/2019 12:37 PM EST Respiratory Rate 14 07/20/2019 12:37 PM EST Oxygen Saturation 98% 07/20/2019 2:55 PM EST Inhaled Oxygen Concentration - - Weight 83.9 kg (185 lb) 07/20/2019 12:37 PM EST Height 177.8 cm (5' 10 ) 07/20/2019 12:37 PM EST Body Mass Index 26.54 07/20/2019 12:37 PM EST Plan of Treatment Health Maintenance Due Date Last Done Comments Depression Screening 1954 Tobacco Screening 1952 DTaP,Tdap and Td Vaccines (1 - Tdap) 1961 Zoster (Shingles) Vaccine (1 of 2) 1992 Fall Risk Screening 2007 Influenza Vaccine 01/31/2025 03/10/2019, , 04/10/2016, Additional history exists Medical Devices Implanted Type Area Electronic Equipment Set Up Operator Device Identifier Shelf Expiration Date Model / Serial / Lot Lens Iol Ultrasert 20.0d - [id number] - [id number] Implanted:Qty: 1 on 06/29/2019 by Emily Guillory MD at [facility] Lens Right: Eye [employer] 01/27/2022 AU00T0 20.0 / [id number] / Lens Iol Ultrasert 20.0d - [id number] - [id number] Implanted:Qty: 1 on 07/20/2019 by Emily Guillory MD at [facility] Lens Left: Eye [employer] 02/17/2022 AU00T0 20.0 / [id number] / Insurance MEDICARE Care Teams Legger Press Operator Relationship Specialty Start Date End Date Jorge Luis Sotelo MD PCP - General Family Medicine 06/29/19
--- OUTSIDE RECORDS SUMMARY | 2025-02-01 13:32 | XMS_ITS | Encounter Summary ---
Author Organization [facility] Address [address] [place] [address] Care Team Providers Care Body Worker Name Role Phone Jorge Luis Sotelo MD Primary Care Provider [phone] Thomas Hassan MD Unavailable Jorge Luis Sotelo MD Unavailable Reason for Visit * Reason Comments Med Change Request Encounter Details Date Type Department Care Team (Late Contact Info) Description 12/10/2023 Refill [facility] [address] [place] [address] Jorge Luis Sotelo MD [address] [place] [address] Post herpetic neuralgia Social History Tobacco Use Types Packs/Day Years [...] on file documented as of this encounter Visit Diagnoses Diagnosis Post herpetic neuralgia 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 documented in this encounter Care Teams Body Worker Relationship Specialty Start Date End Date Jorge Luis Sotelo MD PCP - General Family Medicine 12/02/23 Jorge Luis Sotelo MD [address] [place] [address] PCP - Brittany SORIA 04/02/24 Thomas Hassan MD [address] [place] [address] Referring Physician 04/23/24 documented as of this encounter
--- OUTSIDE RECORDS SUMMARY | 2025-02-01 13:33 | XMS_ITS | Clinical Summary ---
Author Organization [facility] Address [address] [place] [address] Care Team Providers Care Interventional Radiology Rn Name Role Phone Jorge Luis Sotelo MD Primary Care Provider [phone] Allergies Active Allergy Reactions Criticality Noted Date Comments Codeine Nausea Only 08/23/2024 Medications gabapentin (Neurontin) 100 mg capsule Take 100 mg by mouth 3 times a day. 5 Active metFORMIN XR (Glucophage-XR) 500 mg 24 hr tablet Take 500 mg by mouth in the morning. 5 Active omeprazole (PriLOSEC) [address] capsule Take 20 mg by mouth. Active OXcarbazepine (Trileptal) 300 mg tablet Take 300 mg by mouth two times daily. 4 Active glipiZIDE (Glucotrol) 10 mg tablet 10 mg. 4 Active ALPRAZolam (Xanax) 0.25 mg tablet TAKE 1 TABLET BY MOUTH 3 TIMES A DAY NEEDED FOR ANXIETY FOR UP TO 10 DAYS Active albuterol 90 mcg/actuation inhaler Inhale 2 puffs every 4 (four) hours if needed. Active lisinopril 10 mg tabletIndication s:Benign hypertensive heart disease without congestive heart failure Take 1 tablet (10 mg) by mouth once daily as directed. 90 tablet 3 5 09/07/19 26 Active hydroCHLOROthiaz jes (HYDRODiuril) 25 mg tabletIndication s:Benign hypertensive heart disease without congestive heart failure Take 1 tablet (25 mg) by mouth once daily as directed. 90 tablet 3 5 09/07/19 26 Active Additional Information Patient taking differently:25 mg oral2 times daily, Reported on 12/14/2024 carvedilol (Coreg) 6.25 mg tabletIndication s:Benign hypertensive heart disease without congestive heart failure Take 1 tablet (6.25 mg) by mouth with breakfast and with evening meal. 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 Diabetes 08/23/2024 Statin myopathy 07/07/2024 Medicare annual wellness visit, subsequent 07/07 Gross hematuria 06/14/2024 Encounter for screening pros ambrose specific antigen (PSA) measurement 05/17/2024 Lumbar spondylosis 12/02/2023 Adult hypothyroidism 07/07/2023 COPD (chronic obstructive pulmonary disease) 10/2023 Dyslipidemia 07/07/2023 Gastroesophageal reflux disease without esophagi tis 07/07/2023 Generalized anxiety disorder 07/07/2023 Persistent disorder of initiating or maintaining sleep 07/07/2023 Post herpetic neuralgia 07/07/2023 Type 2 diabetes mellitus with hyperglycemia 10/2023 Encounters Date Type Department Care Team Description 12/14/2024 1:15 PM EDT Office Visit [facility] at [address] [address] Kristen Gill MD Benign hypertensive heart disease without congestive heart failure (Primary Dx); Abnormal EKG from Last 3 Months Family History Relation Name Status Comments Father Mother Social History Tobacco Use Types Packs/Day Years Used Date Smoking Tobacco: Former Cigarettes Smokeless Tobacco: Never Tobacco Cessation:Counseling Given: Not Answered Alcohol Use Standard Drinks/Week Comments Not Currently 0 (1 standard drink = 0.6 oz pur e alcohol) Sex and Gender Information Value Date Recorded Sex Assigned at Male 12/08/2024 11:28 AM EDT Legal Sex Male 2:40 PM EDT Gender Identity Male 12/08/2024 11:28 AM EDT Sexual Orientation Heterosexual or Straight 01/2025 11:28 AM EDT Last Filed Vital Signs Vital Sign Reading Time Taken Comments Blood Pressure 93/64 12/14/2024 1:30 PM EDT Pulse 63 12/14/2024 1:30 PM EDT Temperature - - Respiratory Rate - - Oxygen Saturation 100% 12/14/2024 1:30 PM EDT Inhaled Oxygen Concentration - - Weight 77.1 kg (170 lb) 12/14/2024 1:30 PM EDT Height 177.8 cm (5' 10 ) 12/14/2024 1:30 PM EDT Body Mass Index 24.39 12/14/2024 1:30 PM EDT Plan of Treatment Upcoming Encounters Date Type Department Care Team (Late st Contact Info) Description 03/21/2025 1:15 PM EDT Office Visit [facility] [address] [place] [address] Kristen Gill MD [address] [facility] [place] [phone] Health Maintenance Due Date Last Done Comments Diabetes: Hemoglobin A1C 1940 Medicare Annual Wellness (AWV) 1940 Diabetes: Retinopathy Screening 1952 Depression Screening 1954 Diabetes: Urine Protein Screening 1961 Adult Tetanus 1964 Fall Risk Screening 2007 COVID-19 Vaccine ( season) 2024 04/21/2021, 07/21/2020, 06/30/2020 Influenza Vaccine (#1) 2025 3, 04/08/2022, 03/22/2021, Additional history exists Pneumococcal Vaccine: 50+ Years Completed 12/12/2023, 08/21/2010 Zoster Vaccines Completed 12/12/2023, 10/07/2023 HIB Vaccines Aged Out No longer eligi ble based on patient's age to complete this topic HPV Vaccines Aged Out No longer eligi ble based on patient's age to complete this topic IPV Vaccines Aged Out No longer eligi ble based on patient's age to complete this topic Meningococcal B Vaccine Aged Out No l onger eligible based on patient's age to complete this topic Meningococcal Vaccine Aged Out No jose ramon yesenia eligible based on patient's age to complete this topic Rotavirus Vaccines Aged Out No longer eligible based on patient's age to complete this topic Insurance [employer] Care Teams Interventional Radiology Rn Relationship Specialty Start Date End Date Jorge Luis Sotelo MD [address] [place] [address] PCP - General Family Medicine 08/18/24
== END 2025-02-01 13:30 | disposition home or self-care (01) ==
LOC: LAB 13:31
PROVIDERS: PCP Family Medicine; Visit Provider Family Medicine
DX: E11.65 Type 2 diabetes mellitus with hyperglycemia (principal)
CPT/HCPCS: 36415; 83036

== ENCOUNTER 2025-03-05 14:11 | Emergency (ER) | payer MEDICARE, SELFPAY ==
[2025-03-05 14:15] VITALS: BP 137/89; PULSE 60; TEMP 36.5; O2SAT 97; BMI 25.1
--- OUTSIDE RECORDS SUMMARY | 2025-03-05 14:16 | XMS_ITS | Clinical Summary ---
Author Organization [employer] Address [id number] [address] [place] [address] Care Team Providers Care Medical Surgery Nurse Name Role Phone Jorge Luis Sotelo MD Primary Care Provider [phone] Allergies Active Allergy Reactions Criticality Noted Date [...] history exists Medical Devices Implanted Type Area Tight Rope Walker Device Identifier Shelf Expiration Date Model / Serial / Lot Lens Iol Ultrasert 20.0d - [id number] - [id number] Implanted:Qty: 1 on 06/29/2019 by Emily Guillory MD at [facility] Lens Right: Eye [employer] 01/27/2022 AU00T0 20.0 / [id number] / Lens Iol Ultrasert 20.0d - [id number] - [id number] Implanted:Qty: 1 on 07/20/2019 by Emily Guillory MD at [facility] Lens Left: Eye [employer] 02/17/2022 AU00T0 20.0 / [id number] / Insurance MEDICARE Care Teams Medical Surgery Nurse Relationship Specialty Start Date End Date Jorge Luis Sotelo MD PCP - General Family Medicine 06/29/19
--- OUTSIDE RECORDS SUMMARY | 2025-03-05 14:16 | XMS_ITS | Clinical Summary ---
Author Organization [facility] Healthcare Address [address] [place] [address] Care Team Providers Care Telegraph Service Clerk Name Role Phone Jorge Luis Sotelo MD Primary Care Provider [phone] Thomas Hassan MD Unavailable Jorge Luis Sotelo MD Unavailable Allergies Active Allergy Reactions Criticality Noted Date Comments Codeine 06/19/2023 Medications albuterol HFA 90 mcg/act inhaler Inhale 2 puffs every 4 (four) hours if needed for wheezing Active albuterol (2.5 MG/3ML) 0.083% nebulizer solution Take 2.5 mg by nebulization every 4 (four) hours if needed for wheezing Active omeprazole (PriLOSEC) [address] capsule Take 20 mg by mouth in the morning. Take before meals. Do not crush or chew. Active acetaminophen (Tylenol) 325 MG tablet Take by mouth Active [facility] Olopatadine HCl 0.2 % ophthalmic solution Administer 1 drop into the left eye in the morning and 1 drop before bedtime. 03/26/20 24 Active gabapentin (Neurontin) 100 MG capsuleIndication s:Post herpetic neuralgia Take 1 capsule (100 mg) by mouth in the morning and 1 capsule (100 mg) in the evening and 1 capsule (100 mg) before bedtime. 90 capsule 3 08/03/19 25 Active Additional Information Patient taking differently:100 mg OralNightly PRN, Reported on 10/28/2024 ALPRAZolam (Xanax) 0.25 MG tabletIndications :Generalized anxiety disorder Take 1 tablet (0.25 mg) by mouth 3 (three) times a day as needed for anxiety for up to 10 days 30 tablet 08/17/19 25 Active metFORMIN XR (Glucophage-XR) 500 MG 24 hr tabletIndications :Type 2 diabetes mellitus with hyperglycemia, without long-term current use of insulin (HCC) Take 1 tablet (500 mg) by mouth Daily 90 tablet 5 08/17/19 25 Active hydroCHLOROthiazi de (HYDRODiuril) 25 MG tablet Take 25 mg by mouth Daily 09/07/19 25 026 Active hydrOXYzine HCl (Atarax) 25 MG tablet 25 mg 07/05/19 25 Active methocarbamol (Robaxin) 750 MG tablet 12/02/19 24 Active lisinopril 10 MG tablet Take 10 mg by mouth 09/07/19 25 026 Active glipiZIDE (Glucotrol) 10 MG tabletIndications :Type 2 diabetes mellitus with hyperglycemia, without long-term current use of insulin (HCC) TAKE 1 TABLET (10 MG) BY MOUTH DAILY. 90 tablet 3 09/24/19 25 Active OXcarbazepine (Trileptal) 300 MG tabletIndications :Post herpetic neuralgia Take 1 tablet (300 mg) by mouth in the morning and 1 tablet (300 mg) before bedtime. 180 tablet 1 11/18/19 25 Active carvedilol (Coreg) 6.25 MG tablet Take 6.25 mg by mouth in the morning and 6.25 mg in the evening. Take with meals. Active OneTouch Ultra Test test stripIndications: Type 2 diabetes mellitus with hyperglycemia (HCC) USE TO TEST ONCE A DAY 50 strip 11 01/18/20 25 Active Active Problems Problem Noted Date Diagnosed Date Benign essential hypertension 01/04/2025 Assessment & Plan (01/04/2025 2:21 PM EDT): BP controlled and monitor PRN. Urothelial carcinoma of bladder 09/28/2024 Assessment & Plan (01/04/2025 2:21 PM EDT): Follow with urology. Diabetes 08/23/2024 BPH with urinary obstruction 08/23/2024 Medicare annual wellness visit, subsequent 07/07 Assessment & Plan (07/07/2024 2:15 PM EST): Due for labs. Discussed proper diet and regular aerobic exercise. Need aerobic exercise 5-6 days a week for 30 minutes at a time. Smaller portions and limit total calories. Tetanus every 10 years. Advised not to smoke. Statin myopathy 07/07/2024 Encounter for long-term (current) use of medicat ions 05/17/2024 Encounter for screening pros ambrose specific antigen (PSA) measurement 05/17/2024 Lumbar spondylosis 12/02/2023 Assessment & Plan (01/04/2025 2:21 PM EDT): Pain stable and continue walking. Use robaxin PRN. Assessment & Plan (01/06/2024 1:49 PM EDT): Pain improved and continue walking. Use robaxin PRN. Assessment & Plan (12/02/2023 2:02 PM EDT): Increased pain and history suggestive of pinched nerve. Check x-ray. Recommended PT but states he's done it in past and will resume home exercises. Start robaxin for spasms and ultram for pain. If no improvement will need MRI. COPD (chronic obstructive pulmonary disease) 10/2023 Assessment & Plan (01/04/2025 2:21 PM EDT): Symptoms stable and use albuterol PRN. Assessment & Plan (07/07/2024 2:15 PM EST): Symptoms stable and use albuterol PRN. Assessment & Plan (05/17/2024 11:08 AM EST): Worsening SOB and treat with prednisone and levaquin. Use albuterol every 4 hours x 48 then PRN. Assessment & Plan (01/06/2024 1:48 PM EDT): Breathing stable and use albuterol PRN. Assessment & Plan (07/07/2023 2:21 PM EST): Breathing stable and use albuterol PRN. Dyslipidemia 07/07/2023 Assessment & Plan (07/07/2024 2:15 PM EST): Prior statin intolerance. Generalized anxiety disorder 07/07/2023 Assessment & Plan (01/04/2025 2:21 PM EDT): Occasional symptoms but tolerable and use xanax PRN. Assessment & Plan (01/06/2024 1:48 PM EDT): Occasional symptoms but tolerable and use xanax PRN. Assessment & Plan (07/07/2023 2:22 PM EST): Occasional symptoms but tolerable and use xanax PRN. Adult hypothyroidism 07/07/2023 Persistent disorder of initiating or maintaining sleep 07/07/2023 Post herpetic neuralgia 07/07/2023 Assessment & Plan (01/04/2025 2:21 PM EDT): Pain improved with trileptal and continue. Use hydroxyzine for itching. Assessment & Plan (01/06/2024 1:49 PM EDT): Pain improved with trileptal and continue. Use hydroxyzine for itching. Assessment & Plan (12/02/2023 2:02 PM EDT): Pain improved with trileptal and continue. Start hydroxyzine for itching. Assessment & Plan (07/07/2023 2:22 PM EST): Pain improved with trileptal and continue. Type 2 diabetes mellitus with hyperglycemia 10/2023 Assessment & Plan (01/04/2025 2:21 PM EDT): Reports BS variable and due for A1C. Stick to ADA diet and limit carbs. Assessment & Plan (07/07/2024 2:15 PM EST): Recent A1C 7.5. Stick to ADA diet and limit carbs. Assessment & Plan (05/17/2024 11:08 AM EST): Reports BS stable and due for A1C. Stick to ADA diet and limit carbs. Assessment & Plan (01/06/2024 1:49 PM EDT): Reports BS stable and due for A1C. Stick to ADA diet and limit carbs. Assessment & Plan (07/07/2023 2:22 PM EST): Reports BS stable and A1C 7.0. Stick to ADA diet and limit carbs. Gastroesophageal reflux disease without esophagi tis 07/07/2023 Assessment & Plan (01/06/2024 1:48 PM EDT): Symptoms controlled with medication and continue. Assessment & Plan (07/07/2023 2:21 PM EST): Symptoms controlled with medication and continue. Resolved Problems Problem Noted Date Diagnosed Date Resolved Date Bladder neoplasm of uncertai n malignant potential 08/23/2024 01/04/2025 Gross hematuria 06/14/2024 01/04/2025 Assessment & Plan (06/14/2024 1:38 PM EST): Reports blood in urine off and on of unclear etiology. Check urine and refer to urology for possible cystoscopy. Elevated blood pressure read ing without diagnosis of hypertension 07/07/2023 05/17/2024 Encounters Date Type Department Care Team Description 01/15/2025 Refill [facility] [address] [place] [address] Jorge Luis Sotelo MD Type 2 diabetes mellitus with hyperglycemia (HCC) 01/04/2025 1:30 PM EDT Office Visit [facility] [address] [place] [address] Jorge Luis Sotelo MD Type 2 diabetes mellitus with hyperglycemia, without long-term current use of insulin (HCC) (Primary Dx); Benign essential hypertension ; Chronic obstructive pulmonary disease, unspecified COPD type (HCC); Generalized anxiety disorder ; Lumbar spondylosis; Post herpetic neuralgia ; Urothelial carcinoma of bladder (HCC) 01/04/2025 [employer] Lum[employer] flowsheet [facility] [address] [place] [address] Jorge Luis Sotelo MD from Last 3 Months Immunizations Immunization Administration Dates Next Due Influenza, High Dose Seasona l, Preservative Free 03/10/2019,02/11/2018,04/10/2016,03/10 Influenza, High-dose Seasona l, Quadrivalent, Preservative Free 04/08/2022 Influenza, Seasonal, Quadriv alent, Adjuvanted 03/07/2023,03/22/2021 Pfizer Purple Cap SARS-CoV-2 Vaccination 04/21/2021,07/21/2020,06/30/2020 Pneumococcal Conjugate PCV 20 12/12/2023 Pneumococcal Polysaccharide PPSV23 08/21/2010 Unknown outside immunization 02/11/2020 Zoster, Recombinant 12/12/2023,10/07/2023 Family History Medical History Relation Name Comments Coronary artery disease Father Diabetes Father Cancer Mother Lung cancer Mother Relation Name Status Comments Father Mother Social History Tobacco Use Types Packs/Day Years Used Date Smoking Tobacco: Former Cigarettes 1 19 1 950 - 1969 Smokeless Tobacco: Never Tobacco Cessation:Counseling Given: Not Answered Alcohol Use Standard Drinks/Week Comments Not Currently 0 (1 standard drink = 0.6 oz pur e alcohol) PHQ-2 Answer Date Recorded Patient Health Questionnaire-2 Score 0 07/07/2024 Sex and Gender Information Value Date Recorded Sex Assigned at Not on file Legal Sex Male 10:18 AM EDT Gender Identity Not on file Sexual Orientation Not on file Last Filed Vital Signs Vital Sign Reading Time Taken Comments Blood Pressure 126/78 01/04/2025 1:44 PM EDT Pulse 80 01/04/2025 1:44 PM EDT Temperature 36.2 C (97.1 F) 01/04/2025 1:44 PM EDT Respiratory Rate 20 01/04/2025 1:44 PM EDT Oxygen Saturation 98% 01/04/2025 1:44 PM EDT Inhaled Oxygen Concentration - - Weight 78.5 kg (173 lb) 01/04/2025 1:44 PM EDT Height 177.8 cm (5' 10 ) 01/04/2025 1:44 PM EDT Body Mass Index 24.82 01/04/2025 1:44 PM EDT Plan of Treatment Health Maintenance Due Date Last Done Comments Diabetes: Hemoglobin A1C 11/22/2024 024, 01/20/2024, 05/02/2023 Influenza Vaccine (#1) 2025 3, 04/08/2022, 03/22/2021, Additional history exists Diabetes: Urine Protein Screening 05/24/2025 024, 05/02/2023 Medicare Annual Wellness (AWV) 07/07/2025 07/07/2024 Diabetes: Retinopathy Screening 11/02/2025 Pneumococcal Vaccine: 65+ Years Completed 4, 08/21/2010 Insurance [employer] Care Teams Telegraph Service Clerk Relationship Specialty Start Date End Date Jorge Luis Sotelo MD PCP - General Family Medicine 12/02/23 Jorge Luis Sotelo MD [address] [place] [address] PCP - Brittany SORIA 04/02/24 Thomas Hassan MD [address] [place] [phone] Referring Physician 04/23/24
--- OUTSIDE RECORDS SUMMARY | 2025-03-05 14:16 | XMS_ITS | Clinical Summary ---
Author Organization [facility] Address [address] [place] [address] Care Team Providers Care Dam Attendant Name Role Phone Jorge Luis Sotelo MD Primary Care Provider [phone] Allergies Active Allergy Reactions Criticality Noted Date [...] Description 12/14/2024 1:15 PM EDT Office Visit [facility] at [address] [address] Kristen Gill MD Benign hypertensive [...] Description 03/21/2025 1:15 PM EDT Office Visit [facility] [address] [place] [address] Kristen Gill MD [address] [facility] [place] [phone] Health Maintenance Due Date Last Done Comments Diabetes: Hemoglobin A1C 1940 Medicare Annual Wellness (AWV) 1940 Diabetes: Retinopathy Screening 1952 Depression Screening 1954 Diabetes: Urine Protein Screening 1961 Adult Tetanus 1964 Fall Risk Screening 2007 COVID-19 Vaccine ( season) 2025 04/21/2021, 07/21/2020, 06/30/2020 Influenza Vaccine (#1) 2025 [...] topic Insurance [employer] Care Teams Dam Attendant Relationship Specialty Start Date End Date Jorge Luis Sotelo MD [address] [place] [address] PCP - General Family Medicine 08/18/24
--- OUTSIDE RECORDS SUMMARY | 2025-03-05 14:16 | XMS_ITS | Encounter Summary ---
Author Organization [facility] Address [address] [place] [address] Care Team Providers Care Bottle Cleaner Name Role Phone Gerson Malik MD Primary Care Provider [phone] Thomas Hassan MD Unavailable Gerson Malik MD Unavailable Encounter Details Date Type Department Care Team (Late st Contact Info) Description 12/06/2023 Clinisync Result Encounter [facility] External Department Unsolicited Gerson Malik MD [address] [place] [address] Social History Tobacco Use Types Packs/Day Years [...] EDT Narrative 12/06/2023 4:29 [place] [address] XRay Report Signed Patient: JAM ESPINAL Jr. MR#: [id number] : 1940 Acct:[id number] Age/Sex: 83 / M ADM Date: 12/03/23 Loc: [facility] Attending Dr: Gerson Malik M.D. Ordering Physician: Gerson Malik M.D. Date of Service: 12/03/23 Procedure(s): XR lumbar spine 2-3V Accession Number(s): [id number] cc: Gerson Malik M.D. [place] [address] Patient Name: JAM ESPINAL MRN: [id number] date: 1940 Sex: M Assigned Patient Location: [facility] Current Patient Location: Accession/Order Number: [id number] Exam Date: 12/03/2023 13:05 Report Date: 12/06/2023 [...] Signed By: 12/06/23 0429 DD/ 5 TD/TT: Pulp Maker: Procedure Note Radiology, Radiologist, MD - 12/06/2023 [facility] [place] [id number] XRay Report Signed Patient: JAM ESPINAL Jr.MR#: [id number] : 1940cct:[id number] Age/Sex: 83 / MADM Date: 12/03/23 Loc: [facility] Attending Dr: Gerson Malik M.D. Ordering Physician: Gerson Malik M.D. Date of Service: 12/03/23 Procedure(s): XR lumbar spine 2-3V Accession Number(s): [id number] cc: Gerson Malik M.D. [place] [address] Patient Name: JAM ESPINAL MRN: [id number] date: 1940 Sex: M Assigned Patient Location: [facility] Current Patient Location: Accession/Order Number: [id number] Exam Date: 12/03/2023 13:05 Report Date: 12/06/2023 [...] Adames M.D. Signed By:12/06/23428 DD/ 5 TD/TT: Pulp Maker: Gerson Malik MD IMG XR PROCEDURES Final Result documented in this encounter Visit Diagnoses Not on filedocumented in this encounter Care Teams Bottle Cleaner Relationship Specialty Start Date End Date Gerson Malik MD PCP - General Family Medicine 12/02/23 Gerson Malik MD [address] [place] [phone] PCP - Brittany SORIA 04/02/24 Thomas Hassan MD [address] [place] [phone] Referring Physician 04/23/24 documented as of this encounter
--- OUTSIDE RECORDS SUMMARY | 2025-03-05 14:17 | XMS_ITS | CCD ---
Author Organization [facility] Providers Care Acid Retort Operator Name Role Phone KING, DR JORGE LUIS [...] Jorge Luis Malik MD Primary Care Provider [phone] Thomas Hassan MD Unavailable Jorge Luis Malik MD Unavailable JORGE LUIS MALIK Primary Care Physician Lalo SOUZA Attending Unavailable SOUZA, Lalo Mclain Attending Unavailable NADERER, JORGE LUIS Referring Unavailable SOUZA, Lalo Mclain Admitting Unavailable SOUZALalo Attending Unavailable Libby QUINTANA, Lalo Attending Provider Lalo Souza Admitting Unavailable Souza, Lalo Attending Unavailable ROBERTO ROBLEDO Attending Unavailable PETEODESTHOMAS Referring Unavailable NADERER, JORGE LUIS Attending Unavailable NADERER, JORGE LUIS Attending Unavailable NADERER, JORGE LUIS Attending Unavailable RODRIGUEZ, LAYLA Attending Unavailable RODRIGUEZ, LAYLA Attending Unavailable NADERER, JORGE LUIS Attending Unavailable NADERER, JORGE LUIS Attending Unavailable ELTAHAWY, KRISTEN Attending Unavailable ELTAHAWY, KRISTEN Attending Unavailable ELTAHAWY, MEIRAB Attending Unavailable SOUZA, Lalo R Attending Unavailable SOUZA, Lalo Mclain Attending Unavailable SOUZA, Lalo R Referring Unavailable SOUZA, Lalo R Attending Unavailable SOUZA, Lalo Mclain Attending Unavailable KIMI GRAYSON Attending Unavailable SOUZA, Lalo Mclain Attending Unavailable RADHA, KIMI Baires Attending Unavailable RADHA, KIMI Baires Attending Unavailable RADHA, KIMI Baires Attending Unavailable SOUZALalo Attending Unavailable Rebeca, Shannan Attending Unavailable Rebeca, Shannan Attending Unavailable Rebeca, Shannan Attending Unavailable Lalo SOUZA Attending Unavailable RADHA, KIMI Baires Attending Unavailable RADHA, KIMI Baires Attending Unavailable RADHA, KIMI Baires Attending Unavailable Lalo SOUZA Admitting Unavailable Lalo SOUZA Attending Unavailable Angelina Tapia Attending Provider Unavailable Jorge Luis Malik MD Attending Provider Michael [facility] Attending Provider Jorge Luis Malik MD Primary Care Provider Allergies Allergy Classification Reported Allergen(s) Allergy Type Date of Onset Reaction(s) Facility (5 sources) Codeine; Translations: [codeine] Drug Allergy [address] [facility] Repository (20 sources) Codeine; Translations: [codeine] Drug Allergy 4 Lightheadedness (finding) [facility] Medications Current Medications Medication Drug Class(es) Dates Sig (Normalized) Sig (Original) acetaminophen 500 mg oral tablet (20 sources) Start: 07-05-2024 take 500 mg by mouth three times daily Tylenol 500 mg, Oral, TID, Refills(s) 0 Start Date: 07/05/24 Status: Ordered Repeat number: 1 acetaminophen (T ylenol) 325 MG tablet Take by mouth Active Albuterol (20 sources) beta2-Adrenergic Agonist Start: 07-05-2024 albut suzette See Instructions, Refills(s) 0 Start Date: 07/05/24 Status: Ordered Repeat number: 1 Start: 07-05-2024 albuterol See Instructions, Refills(s) 0 Start Date: 07/05/24 Status: Ordered albuterol (2.5 M G/3ML) 0.083% nebulizer solution Take 2.5 mg by nebulization every 4 (four) hours if needed for wheezing Active take 2 puff(s) by in halation every four hours for wheezing albuterol HFA 90 mcg/act inhaler Inhale 2 puffs every 4 (four) hours if needed for wheezing Active ALPRAZolam 0.25 mg oral tablet (20 sources) Benzodiazepine Start: 08-16-2024 take 1 tablet by mouth three times daily as needed for anxiety ALPRAZolam (Xanax) 0.25 MG tablet Indications: Generalized anxiety disorder Take 1 tablet (0.25 mg) by mouth 3 (three) times a day as needed for anxiety for up to 10 days 30 tablet 08/16/2024 Active take 1 tablet by xenia th three times daily as needed for anxiety ALPRAZolam (Xanax) 0.25 MG tablet Take 0 .25 mg by mouth 3 (three) times a day as needed for anxiety Active carvedilol 6.25 mg oral tablet (3 sources) alpha-Adrenergic Karol, beta-Adrenergic Karol Start: 02-16-2025 take 1 tablet by mouth twice daily Carvedilol 6.25 mg tablet Active 6.25 MG PO Twice daily February 16, 2025 12:00am Complies with drug therapy take 1 tablet by mouth in the mo rning carvedilol (Coreg) 6.25 MG tablet Take 6.25 mg by mouth in the morning and 6.25 mg in the evening. Take with meals. Active glipiZIDE 10 mg oral tablet (20 sources) Sulfonylurea Start: 10-09-2023 take 1 tablet by mouth once daily Glipizide 10 mg tablet Active 10 MG PO Daily February 16, 2025 12:00am Complies with drug therapy hydroCHLOROthiazide 25 mg oral tablet (9 sources) Thiazide Diuretic Start: 09-06-2024 End: 09-06-2025 take 1 tablet by mouth once daily Hydrochlorothiazide 25 mg tablet Active 25 MG PO Daily February 16, 2025 12:00am Complies with drug therapy hydrOXYzine hydrochloride 25 mg oral tablet (20 sources) Antihistamine Start: 06-16-2024 End: 07-07-2024 hydrOXYzine hydrochloride 25 mg Tab 25 mg = 1 tab(s), Refills(s) 0 Start Date: 07/05/24 Status: Ordered Repeat number: 1 Start: 12-30-2023 take 1 tablet by xenia th four times daily as needed hydrOXYzine HCl (Atarax) 25 MG tablet Indications: Post herpetic neuralgia (CMS/HCC) TAKE 1 TABLET BY MOUTH 4 TIMES A DAY NEEDED FOR ITHCING 360 tablet 1 12/30/2023 Active lisinopril 10 mg oral tablet (9 sources) Angiotensin Converting Enzyme Inhibitor Start: 09-06-2024 End: 09-06-2025 take 1 tablet by mouth once daily Lisinopril 10 mg tablet Active 10 MG PO Daily February 16, 2025 12:00am Complies with drug therapy 24 hr metFORMIN hydrochloride 500 mg extended release oral tablet (20 sources) Biguanide Start: 02-16-2025 take 1 tablet by mouth every twenty-four hours Metformin 500 mg tablet extended release 24 hr Active MG PO February 16, 2025 12:00am Complies with drug therapy Start: 08-16-2024 take 1 tablet by xenia th once daily metFORMIN XR (Glucophage-XR) 500 MG 24 hr tablet Indications: Type 2 diabetes mellitus with hyperglycemia, without long-term current use of insulin ([facility]) Take 1 tablet (500 mg) by mouth Daily 90 tablet 5 08/16/2024 Active Start: 07-05-2024 take 500 mg by mouth once daily metformin 500 mg, Oral, Daily, Refills(s) 0 Start Date: 07/05/24 Status: Ordered Repeat number: 1 Start: 05-11-2024 take 1 tablet by xenia [...] 07/19/2023 Active methocarbamol 750 mg oral tablet (12 sources) Muscle Relaxant Start: 12-02-2023 End: 05-17-2024 methocarbamol (Robaxin) 750 MG tablet 12/02/2023 Active olopatadine 2 mg/ml ophthalmic solution (20 sources) Histamine-1 Receptor Inhibitor Start: 03-26-2024 take 1 drop(s) into the eye(s) in the morning [facility] Olopatadine HCl 0.2 % ophthalmic solution Administer 1 drop into the left eye in the morning and 1 drop before bedtime. 03/26/2024 Active omeprazole 20 mg oral tablet (20 sources) Proton Pump Inhibitor Start: 07-05-2024 take 20 mg by mouth once daily omeprazole 20 mg, Oral, Daily, Refills(s) 0 Start Date: 07/05/24 Status: Ordered Repeat number: 1 take 1 capsule by mouth before m ealtime omeprazole (PriLOSEC) [address] capsule Take 20 mg by mouth in the morning. Take before meals. Do not crush or chew. Active OXcarbazepine 300 mg oral tablet (20 sources) Anti-epileptic Agent Start: 03-08-2024 oxcarbaze pine 300 mg Tab 300 mg = 1 tab(s), Refills(s) 0 Start Date: 07/05/24 Status: Ordered Repeat number: 1 Start: 07-07-2023 take 1 tablet by xenia [...] Sig (Original) ciprofloxacin 500 mg oral tablet (6 sources) Quinolone Antimicrobial Start: 12-06-2024 take 1 tablet by mouth every three months Cipro 500 mg Tab 500 mg = 1 tab(s), Oral, Daily, Take 1 tablet the day before the procedure and 1 tablet after the procedure, every 3 months, # 8 tab(s), Refills(s) 0, Pharmacy: [facility]/pharmacy #[id number], 179, cm, 11/15/24 13:10:00 EDT, Height/Length Dosing, 81, kg, 11/15/24 13:10:00 EDT, Weight Dosing Start Date: 12/06/24 Status: Ordered Quantity: 8.0 Unit: tab(s) Repeat number: 1 Start: 07-05-2024 take 1 tablet by xenia th once daily Cipro 500 mg Tab 500 mg = 1 tab(s), Oral, Daily, take one tab day before procedure and one tab after procedure, # 2 tab(s), Refills(s) 0, Pharmacy: [facility]/pharmacy #[id number], 179, cm, 07/05/24 9:09:00 EST, Height/Length Dosing, 85.4, kg, 07/05/24 9:09:00 EST, Weight Dosing Start Date: 07/05/24 Status: Ordered gabapentin 100 mg oral capsule (20 sources) Anti-epileptic Agent Start: 06-23-2024 End: 06-23-2025 take 1 capsule by mouth three times daily Gabapentin 100 mg capsule Discontinued 100 MG PO Three times daily January 25, 2025 12:00am January 25, 2025 1:08pm levoFLOXacin 750 mg oral tablet (11 sources) Quinolone Antimicrobial Start: 05-17-2024 End: 01-04-2025 take 1 tablet by mouth in the morning levoFLOXacin (Levaquin) 750 MG tablet Take 1 tablet by mouth in the morning. 05/17/2024 01/04/2025 Discontinued Problems Active Problems Problem Classification Problem Date Documented Date Episodic/Chronic Anxiety disorders (20 sources) Generalized anxiety disorder; Translations: [Generalized anxiety disorder] Onset: 07-07-2023 07-07-2023 Chronic Cancer of bladder (20 sources) Transitional cell carcinoma of bladder; Translations: [Malignant tumor of urinary bladder] Onset: 09-28-2024 09-06-2024 Chronic Cancer of bladder (4 sources) History of malignant neoplasm of bladder; Translations: [Personal history of malignant neoplasm of bladder] Onset: 12-27-2024 Episodic Comment on above: Dr. Souza- Urologis t Cancer; other and unspecified primary (4 sources) H/O: malignant neoplasm 12-27-2024 Episodic Chronic obstructive pulmonary disease and bronchiectasis (20 sources) Chronic obstructive pulmonary disease, unspecified; Translations: [Chronic obstructive lung disease] Onset: 02-21-2022 Chronic Diabetes mellitus with complications (20 sources) Type 2 diabetes mellitus with hyperglycemia; Translations: [Hyperglycemia due to type 2 diabetes mellitus] Onset: 09-16-2022 Chronic Diabetes mellitus without complication (18 sources) Diabetes mellitus; Translations: [Type 2 diabetes mellitus without complications] Onset: 08-23-2024 09-09-2024 Chronic Disorders of lipid metabolism (20 sources) Hyperlipidemia, unspecified; Translations: [Dyslipidemia] Onset: 02-16-2022 07-07-2023 Chronic Esophageal disorders (20 sources) Gastroesophageal reflux disease without esophagitis; Translations: [Gastro-esophageal reflux disease without esophagitis] Onset: 07-07-2023 07-07-2023 Chronic Essential hypertension (14 sources) Hypertensive disorder; Translations: [Benign essential hypertension] Onset: 01-04-2025 09-06-2024 Chronic Genitourinary symptoms and ill-defined conditions (20 sources) Khai hematuria; Translations: [Gross hematuria] Onset: 06-14-2024 Resolved: 01-04-2025 06-14-2024 Episodic Hyperplasia of prostate (20 sources) Benign prostatic hypertrophy with outflow obstruction; Translations: [Benign prostatic hyperplasia with lower urinary tract symptoms] Onset: 07-05-2024 Chronic Hypertension with complications and secondary hypertension (2 sources) Hypertensive heart disease without heart failure; Translations: [Hypertensive heart disease without heart failure] Onset: 12-14-2024 Chronic Other nervous system disorders (9 sources) Drug-induced myopathy; Translations: [Drug-induced myopathy] Onset: 07-07-2024 07-07-2024 Episodic Spondylosis; intervertebral disc disorders; other back problems (20 sources) Lumbar spondylosis; Translations: [Spondylosis without myelopathy or radiculopathy, lumbar region] Onset: 12-02-2023 12-02-2023 Chronic Thyroid disorders (20 sources) Hypothyroidism; Translations: [Hypothyroidism, unspecified] Onset: 07-07-2023 07-07-2023 Chronic Unclassified (12 sources) Patient encounter status 07-05-2024 Viral infection (20 sources) Postherpetic neuralgia; Translations: [Other postherpetic nervous system involvement] Onset: 07-07-2023 07-07-2023 Episodic Past or Other Problems Problem Classification Problem Date Documented Da te Episodic/Chronic Mood disorders (15 sources) Mood disorders Onset: 07-07-2024 07-07-2024 Neoplasms of unspecified nature or uncertain behavior (10 sources) Neoplasm of uncertain behavior of bladder; Translations: [Neoplasm of uncertain behavior of bladder] Onset: 08-23-2024 Resolved: 01-04-2025 09-09-2024 Episodic Other aftercare (1 source) Other skilled nursing (current) drug therapy; Translations: [OTH [facility] CURRENT DRUG THERAPY] Onset: 02-16-2022 Episodic Other aftercare (20 sources) Long-term current use of drug therapy; Translations: [Other skilled nursing (current) drug therapy] Onset: 05-17-2024 05-17-2024 Episodic Other circulatory disease (20 sources) Elevated blood-pressure reading without diagnosis of hypertension; Translations: [Elevated blood-pressure reading, without diagnosis of hypertension] Onset: 07-07-2023 Resolved: 05-17-2024 07-07-2023 Episodic Other nervous system disorders (8 sources) Drug-induced myopathy; Translations: [Toxic myopathy] Onset: 07-07-2024 07-07-2024 Episodic Other screening for suspected conditions (not mental disorders or infectious disease) (20 sources) Encounter for screening for malignant neoplasm of prostate; Translations: [Patient encounter status] Onset: 02-16-2022 05-17-2024 Episodic Residual codes; unclassified (20 sources) Persistent insomnia; Translations: [Insomnia, unspecified] Onset: 07-07-2023 07-07-2023 Episodic Results Test Name Value Interpretation Reference Range Facility Ambulatory Visit Summaryon 0 02-16-2025 Ambulatory Visit Summary Ambulatory Visit Summary JAM RAMIREZ JR :1940 Visit Date:02/16/2025 Ambulatory Visit Instructions Your Diagnosis Bladder cancer Your Care Team Attending Physician - Rebeca WEATHERS, Shannan Primary Care Physician - JORGE LUIS MALIK MD This Is Your Medications List acetaminophen (Tylenol) albuterol ciprofloxacin (Cipro 500 mg Tab) gabapentin (gabapentin 100 mg Cap) glipiZIDE (glipiZIDE 10 mg Tab) hydrOXYzine (hydrOXYzine hydrochloride 25 mg Tab) metformin omeprazole oxcarbazepine (oxcarbazepine 300 mg Tab) Procedures Performed Cystoscopy (12/27/2024), TURBT - Transurethral resection of bladder tumor (08/26/2024), Cystoscopy (08/11/2024), History of hernia repair. What to do next Scheduled Follow-Up Appointments Friday 8:30 AM EDT With: LIBBY QUINTANA, Lalo Mclain Where: [facility] [address]- Medications What How Much When Instructions Unchanged acetaminophen (Tylenol) 500 Milligram By Mouth 3 times a day Unchanged albuterol See instructions Unchanged ciprofloxacin (Cipro 500 mg Tab) 1 Tablets By Mouth Every day Take 1 tablet the day before the procedure and 1 tablet after the procedure, every 3 months Unchanged gabapentin (gabapentin 100 mg Cap) 1 Capsules Unchanged glipiZIDE (glipiZIDE 10 mg Tab) 1 Tablets Unchanged hydrOXYzine (hydrOXYzine hydrochloride 25 mg Tab) 1 Tablets Unchanged metformin 500 Milligram By Mouth Every day Unchanged omeprazole 20 Milligram By Mouth Every day Unchanged oxcarbazepine (oxcarbazepine 300 mg Tab) 1 Tablets Allergies codeine (Lightheadedness) Problems Ongoing - Any problem that you are currently receiving treatment for. BPH with urinary obstruction Chronic GERD Diabetes Gross hematuria History of bladder cancer Hypertension Screening PSA (prostate specific antigen) Urothelial carcinoma of bladder Patient Survey You may receive a survey via text or e-mail asking about your office visit. Please share your experience with us by completing your survey. We appreciate your feedback and thank you for choosing us for your care. Patient Portal You may access all of your results and other medical record information on our secure patient portal. If you are not signed up for this yet, please contact Mobile Card at [phone] to get signed up today. Language Information Language assistance services are available as needed. Normal [facility] Urology Office/Clinic Noteon 02-16-2025 Urology Office/Clinic Note Urology Office/Clinic Note HPI Staff Pt is a 84 year old male here for BCG dose 3 of 3 half dose History of Present Illness I have reviewed and verified the staff HPI to be accurate for this encounter. Review of Systems no fever, chills, malaise, myalgia. no abdominal pain, nausea, vomiting. Physical Exam General: Well developed, well nourished, in no acute distress. Procedure The patient was placed in the appropriate position and under sterile conditions, the urethra is catheterized with a 14 Fr straight catheter and the bladder is emptied. 50 cc of sterile 0.9 NS with one half vial of HARRISON BCG was placed into the bladder and the straight catheter was removed. The patient will hold the solution in the bladder for two hours, turning every fifteen minutes 1/4 turn to allow coating of the bladder surface. The patient should call the office or present to the Emergency Department for development of fever, chills, or flu-like symptoms. Symptoms such as urinary frequency, urgency, and other bladder irritation symptoms are expected. Assessment/Plan PRW pt 1. History of bladder cancer (Z85.51: Personal history of malignant neoplasm of bladder) Cytol was atypical, suspicious. CT AP w/wo con 07/12/24 TBH - 4.3 cm RSP simple cyst. No mass or stones. 1.4 cm rounded but slightly irregular fluid density within posterior R aspect of bladder adjacent to UO. Favors a ureterocele given fluid density however has irregular spiculations from its inferior margin on coronal view. Mass vs ureterocele. No wall thickening. S/p Cysto 08/11/24 - 3 cm papillary lesion proximal to the R UO on floor, classic TCC appearing lesion. TURBT 08/26/24 - High-grade, non-invasive papillary urothelial carcinoma. No evidence of CIS. BCG #6/6 completed 11/15/24. S/p cysto 12/27/24 - negative for recurrence, well healed scars, no new tumors FISH cytol 12/27/24 - negative UA today negative for blood or infection. He is asx. Denies issues w/ prior BCG tx. Decision to move forward w/ BCG treatment today. Pt received #3 BCG of 3 today without complications. -Proceed with surveillance cysto as scheduled on 03/21/25 -ER precautions above Orders: Urnls Dip Stick Auto w/o Microscopy POC [id number] Follow-up With When Contact Information LIBBY QUINTANA, Lalo Mclain, [address] [place] [address]- Additional Instructions: Surveillance cysto scheduled 03/21/25 Patient Education Bladder Cancer Problem List/Past Medical History Ongoing Bladder cancer BPH with urinary obstruction Chronic GERD Diabetes Gross hematuria History of bladder cancer Hypertension Screening PSA (prostate specific antigen) Urothelial carcinoma of bladder Historical No qualifying data Procedure/Surgical History Cystoscopy (12/27/2024), TURBT - Transurethral resection of bladder tumor (08/26/2024), Cystoscopy (08/11/2024), History of hernia repair. Medications albuterol, See [...] Tylenol, 500 mg, Oral, TID Allergies codeine (Lightheadedness) Social History Alcohol - Low Risk, 09/06/2024 Beer, 1-2 times per month, 09/06/2024 Substance Abuse - Denies Substance Abuse, 09/06/2024 Never., 07/05/2024 Tobacco - No Risk, 09/06/2024 Former smoker, quit more than 30 days ago Tobacco Use:. Never Smokeless Tobacco Use:. Cigarettes, Yes, 11/15/2024 Family History Breast cancer: Mother. Diabetes: Father. Stroke: Father. Immunizations Vaccine Date Status Comments BCG 02/09/2025 Given BCG 02/02/2025 Given BCG 11/15/2024 Given BCG 11/08/2024 Given BCG 11/01/2024 Given BCG 10/26/2024 Given BCG 10/18/2024 Given BCG 10/11/2024 Given zoster vaccine, inactivated 12/12/2023 Recorded pneumococcal 20-valent conjugate vaccine 12/12/2023 Recorded zoster vaccine, inactivated 10/07/2023 Recorded influenza virus vaccine, inactivated 03/07/2023 Recorded influenza virus vaccine, inactivated 04/08/2022 Recorded SARS-CoV-2 (COVID-19) mRNA BNT-162b2 vax 04/21/2021 Recorded influenza virus vaccine, inactivated 03/22/2021 Recorded SARS-CoV-2 (COVID-19) mRNA BNT-162b2 vax 07/21/2020 Recorded 2024-07-05: [id number] SARS-CoV-2 (COVID-19) mRNA BNT-162b2 vax 06/30/2020 Recorded 2024-07-05: [id number] influenza virus vaccine, inactivated 03/10/2019 Recorded influenza virus vaccine, inactivated 02/11/2018 Recorded influenza virus vaccine, inactivated 04/10/2016 Recorded influenza virus vaccine, inactivated 03/10/2015 Recorded pneumococcal 23-valent vaccine 08/21/2010 Recorded Lab Results Ambulatory Point of Care Results Bilirubin Urine Dipstick: Negative (02/16/25 10:30:00) Blood Urine Dipstick: Negative (02/16/25 10:30:00) Glucose Urine Dipstick: Negati (more content not included)... Normal [facility] Comment on above: Result Comment: Elec tronically Signed By: Rebeca WEATHERS, Shannan\.br\Date and Time Signed: 02/16/25 11:31 EDT Urology Office/Clinic Noteon 02-09-2025 Urology Office/Clinic Note Urology Office/Clinic Note HPI Staff Pt is a 84 year old male here for BCG dose 2 of 3 History of Present Illness I have reviewed and verified the staff HPI to be accurate for this encounter. Review of Systems no fever, chills, malaise, myalgia. no abdominal pain, nausea, vomiting. Physical Exam General: Well developed, well nourished, in no acute distress. Procedure The patient was placed in the appropriate position and under sterile conditions, the urethra is catheterized with a 14 Fr straight catheter and the bladder is emptied. 50 cc of sterile 0.9 NS with one half vial of HARRISON BCG was placed into the bladder and the straight catheter was removed. The patient will hold the solution in the bladder for two hours, turning every fifteen minutes 1/4 turn to allow coating of the bladder surface. The patient should call the office or present to the Emergency Department for development of fever, chills, or flu-like symptoms. Symptoms such as urinary frequency, urgency, and other bladder irritation symptoms are expected. Assessment/Plan PRW pt 1. History of bladder cancer (Z85.51: Personal history of malignant neoplasm of bladder) Cytol was atypical, suspicious. CT AP w/wo con 07/12/24 TBH - 4.3 cm RSP simple cyst. No mass or stones. 1.4 cm rounded but slightly irregular fluid density within posterior R aspect of bladder adjacent to UO. Favors a ureterocele given fluid density however has irregular spiculations from its inferior margin on coronal view. Mass vs ureterocele. No wall thickening. S/p Cysto 08/11/24 - 3 cm papillary lesion proximal to the R UO on floor, classic TCC appearing lesion. TURBT 08/26/24 - High-grade, non-invasive papillary urothelial carcinoma. No evidence of CIS. BCG #6/6 completed 11/15/24. S/p cysto 12/27/24 - negative for recurrence, well healed scars, no new tumors FISH cytol 12/27/24 - negative UA today negative for blood or infection. He is asx. Denies issues w/ prior BCG tx. Decision to move forward w/ BCG treatment today. Pt received #2 BCG of 3 today without complications. -RTO in 1 week for BCG #3 of 3 -ER precautions above Orders: Urnls Dip Stick Auto w/o Microscopy POC [id number] Follow-up With When Contact Information Rebeca WEATHERS, Shannan, DANIELA Additional Instructions: RTC in 1 week for BCG #3 of 3 Patient Education Bladder Cancer Problem List/Past Medical History Ongoing BPH with urinary obstruction Chronic GERD Diabetes Gross hematuria History of bladder cancer Hypertension Screening PSA (prostate specific antigen) Urothelial carcinoma of bladder Historical No qualifying data Procedure/Surgical History Cystoscopy (12/27/2024), TURBT - Transurethral resection of bladder tumor (08/26/2024), Cystoscopy (08/11/2024), History of hernia repair. Medications albuterol, See [...] Tylenol, 500 mg, Oral, TID Allergies codeine (Lightheadedness) Social History Alcohol - Low Risk, 09/06/2024 Beer, 1-2 times per month, 09/06/2024 Substance Abuse - Denies Substance Abuse, 09/06/2024 Never., 07/05/2024 Tobacco - No Risk, 09/06/2024 Former smoker, quit more than 30 days ago Tobacco Use:. Never Smokeless Tobacco Use:. Cigarettes, Yes, 11/15/2024 Family History Breast cancer: Mother. Diabetes: Father. Stroke: Father. Immunizations Vaccine Date Status Comments BCG 02/02/2025 Given BCG 11/15/2024 Given BCG 11/08/2024 Given BCG 11/01/2024 Given BCG 10/26/2024 Given BCG 10/18/2024 Given BCG 10/11/2024 Given zoster vaccine, inactivated 12/12/2023 Recorded pneumococcal 20-valent conjugate vaccine 12/12/2023 Recorded zoster vaccine, inactivated 10/07/2023 Recorded influenza virus vaccine, inactivated 03/07/2023 Recorded influenza virus vaccine, inactivated 04/08/2022 Recorded SARS-CoV-2 (COVID-19) mRNA BNT-162b2 vax 04/21/2021 Recorded influenza virus vaccine, inactivated 03/22/2021 Recorded SARS-CoV-2 (COVID-19) mRNA BNT-162b2 vax 07/21/2020 Recorded 2024-07-05: [id number] SARS-CoV-2 (COVID-19) mRNA BNT-162b2 vax 06/30/2020 Recorded 2024-07-05: [id number] influenza virus vaccine, inactivated 03/10/2019 Recorded influenza virus vaccine, inactivated 02/11/2018 Recorded influenza virus vaccine, inactivated 04/10/2016 Recorded influenza virus vaccine, inactivated 03/10/2015 Recorded pneumococcal 23-valent vaccine 08/21/2010 Recorded Lab Results Ambulatory Point of Care Results Bilirubin Urine Dipstick: 1+ Small (02/09/25 11:11:00) Blood Urine Dipstick: Negative (02/09/25 11:11:00) Glucose Urine Dipstick: Negative (02/09/25 11:11:00) Ketones Urine Dipstick: Trace - 5 mg/dl (02/09/25 11:11:00) Leukocytes Urine Dipstick: Negative (02/09/25 11: (more content not included)... Normal [facility] Comment on above: Result Comment: Elec tronically Signed By: Rebeca WEATHERS, Shannan\.br\Date and Time Signed: 02/09/25 12:14 EDT Reminderson 02-03-2025 Reminders Reminders - From: Lali Paul To: [facility] - Recalls Souza; Sent: 02/03/2025 10:47:12 EDT Show up: 03/02/2025 10:47:00 EDT Subject: cysto/fish/cytol Due Date/Time: 03/21/2025 10:47:00 EDT Reminder/Recall Patient is due in Jun 2025 for 3 month cysto/fish/cytol, bt ck Normal [facility] Reminders Reminders - From: Lali Paul To: EU - Recalls Souza; Sent: 11/11/2024 13:07:56 EDT Show up: 12/31/2024 13:07:00 EDT Subject: cysto/fish/cytol Due Date/Time: 01/24/2025 13:07:00 EDT Reminder/Recall Patient is due in Mar 2025 for 3 month cysto/fish/cytol, bt ck Patient sched 03/21/25 in [place] office.LG Normal [facility] Ambulatory Visit Summaryon 0 02-02-2025 Ambulatory Visit Summary Ambulatory Visit Summary JAM RAMIREZ JR :1940 Visit Date:02/02/2025 Ambulatory Visit Instructions Your Diagnosis Bladder cancer Your Care Team Attending Physician - Shannan Jose PA-C Primary Care Physician - JORGE LUIS MALIK MD This Is Your Medications List acetaminophen (Tylenol) albuterol ciprofloxacin (Cipro 500 mg Tab) gabapentin (gabapentin 100 mg Cap) glipiZIDE (glipiZIDE 10 mg Tab) hydrOXYzine (hydrOXYzine hydrochloride 25 mg Tab) metformin omeprazole oxcarbazepine (oxcarbazepine 300 mg Tab) Procedures Performed Cystoscopy (12/27/2024), TURBT - Transurethral resection of bladder tumor (08/26/2024), Cystoscopy (08/11/2024), History of hernia repair. What to do next Scheduled Follow-Up Appointments Friday 10:30 AM EDT With: Shannan Jose PA-C Where: [facility] [address] [address]- Friday 10:30 AM EDT With: Shannan Jose PA-C Where: [facility] [address] [address]- You Need to Schedule the Following Appointments Follow Up with Shannan Jose PA-C, DANIELA When: Comments: RTO in 1 week for BCG #2 of 3 Where: Medications What How Much When Instructions Unchanged acetaminophen (Tylenol) 500 Milligram By Mouth 3 times a day Unchanged albuterol See instructions Unchanged ciprofloxacin (Cipro 500 mg Tab) 1 Tablets By Mouth Every day Take 1 tablet the day before the procedure and 1 tablet after the procedure, every 3 months Unchanged gabapentin (gabapentin 100 mg Cap) 1 Capsules Unchanged glipiZIDE (glipiZIDE 10 mg Tab) 1 Tablets Unchanged hydrOXYzine (hydrOXYzine hydrochloride 25 mg Tab) 1 Tablets Unchanged metformin 500 Milligram By Mouth Every day Unchanged omeprazole 20 Milligram By Mouth Every day Unchanged oxcarbazepine (oxcarbazepine 300 mg Tab) 1 Tablets Medications and Immunizations Administered Given [place] BCG Live (for intravesical use), 25 mg, IntraVesical. For: Bladder cancer BCG, IntraVesical Allergies codeine (Lightheadedness) Problems Ongoing - Any problem that you are currently receiving treatment for. BPH with urinary obstruction Chronic GERD Diabetes Gross hematuria History of bladder cancer Hypertension Screening PSA (prostate specific antigen) Urothelial carcinoma of bladder Patient Survey You may receive a survey via text or e-mail asking about your office visit. Please share your experience with us by completing your survey. We appreciate your feedback and thank you for choosing us for your care. Education Materials Bladder Cancer Bladder cancer is a condition where abnormal tissue (a tumor) grows in the bladder. The bladder is the organ that holds urine. Two tubes (ureters) carry urine from the kidneys to the bladder. The bladder wall is made of layers of tissue. Cancer that spreads through these layers of the bladder wall becomes more difficult to treat. What increases the risk? The following factors may make you more likely to develop this condition: ??? Smoking. ??? Working where there are risks (occupational exposures), such as working with rubber, leather, clothing fabric, dyes, chemicals, or paint. ??? Being 55 years of age or older. ??? Being male. ??? Having long-term bladder inflammation. ??? Having a history of cancer. This includes: ? A family history of bladder cancer. ? Having had bladder cancer before. ? Having had certain treatments for cancer before, such as: ? Medicines to kill cancer cells (chemotherapy). ? Strong X-ray beams or high-energy capsules to kill cancer cells and shrink tumors (radiation therapy). ??? Having been exposed to arsenic. This is a poisonous substance. What are the signs or symptoms? Early symptoms of this condition include: ??? Blood in your urine. ??? Pain when urinating. ??? Infections of your urinary system (urinary tract infections or UTIs) that happen often. ??? Having to urinate sooner or more often than normal. Late symptoms of this condition include: ??? Not being able to urinate. ??? Pain on one side of your lower back. ??? Loss of appetite. ??? Weight loss. ??? Tiredness (fatigue). ??? Swelling in your feet. ??? Bone pain. How is this diagnosed? This condition is diagnosed based on: ??? Your medical history. ??? A physical exam. ??? Lab tests, such as urine tests. ??? Imaging tests. ??? Your symptoms. You may also have other tests or procedures, such as: ??? A cystoscopy. This involves putting a narrow tube into your urethra. The urethra is the organ that carries urine from your bladder to the outside of your body. This procedure is done to view the lining of your bladder for tumors. ??? A biopsy. This involves remov (more content not included)... Normal [facility] Urology Office/Clinic Noteon 02-02-2025 Urology Office/Clinic Note Urology Office/Clinic Note HPI Staff BCG #1 of 3 History of Present Illness I have reviewed and verified the staff HPI to be accurate for this encounter. Review of Systems no fever, chills, malaise, myalgia. no abdominal pain, nausea, vomiting. Physical Exam General: Well developed, well nourished, in no acute distress. Genitourinary: normal scrotum, normal testes, normal urethra, normal epididymis, normal vas deferens/spermatic cord. Penis: normal shaft, normal glans. Procedure The patient was placed in the appropriate position and under sterile conditions, the urethra is catheterized with a 14 Fr straight catheter and the bladder is emptied. 50 cc of sterile 0.9 NS with one half vial of [place] BCG was placed into the bladder and the straight catheter was removed. The patient will hold the solution in the bladder for two hours, turning every fifteen minutes 1/4 turn to allow coating of the bladder surface. The patient should call the office or present to the Emergency Department for development of fever, chills, or flu-like symptoms. Symptoms such as urinary frequency, urgency, and other bladder irritation symptoms are expected. Assessment/Plan PRW pt 1. Bladder cancer (C67.9: Malignant neoplasm of bladder, unspecified) Cytol was atypical, suspicious. CT AP w/wo con 07/12/24 TBH - 4.3 cm RSP simple cyst. No mass or stones. 1.4 cm rounded but slightly irregular fluid density within posterior R aspect of bladder adjacent to UO. Favors a ureterocele given fluid density however has irregular spiculations from its inferior margin on coronal view. Mass vs ureterocele. No wall thickening. S/p Cysto 08/11/24 - 3 cm papillary lesion proximal to the R UO on floor, classic TCC appearing lesion. TURBT 08/26/24 - High-grade, non-invasive papillary urothelial carcinoma. No evidence of CIS. BCG #6/6 completed 11/15/24. S/p cysto 12/27/24 - negative for recurrence, well healed scars, no new tumors FISH cytol 12/27/24 - negative UA today negative. He is asx. Decision to move forward w/ BCG treatment today. Consent signed. Pt received #1 BCG of 3 today without complications. -RTO in 1 week for BCG #2 of 3 -ER precautions above Ordered: Urnls Dip Stick Auto w/o Microscopy POC [id number] Follow-up With When Contact Information Shannan Jose PA-C, DANIELA Additional Instructions: RTO in 1 week for BCG #2 of 3 Patient Education Bladder Cancer Problem List/Past Medical History Ongoing BPH with urinary obstruction Chronic GERD Diabetes Gross hematuria History of bladder cancer Hypertension Screening PSA (prostate specific antigen) Urothelial carcinoma of bladder Historical No qualifying data Procedure/Surgical History Cystoscopy (12/27/2024), TURBT - Transurethral resection of bladder tumor (08/26/2024), Cystoscopy (08/11/2024), History of hernia repair. Medications albuterol, See [...] Tylenol, 500 mg, Oral, TID Allergies codeine (Lightheadedness) Social History Alcohol - Low Risk, 09/06/2024 Beer, 1-2 times per month, 09/06/2024 Substance Abuse - Denies Substance Abuse, 09/06/2024 Never., 07/05/2024 Tobacco - No Risk, 09/06/2024 Former smoker, quit more than 30 days ago Tobacco Use:. Never Smokeless Tobacco Use:. Cigarettes, Yes, 11/15/2024 Family History Breast cancer: Mother. Diabetes: Father. Stroke: Father. Immunizations Vaccine Date Status Comments BCG 11/15/2024 Given BCG 11/08/2024 Given BCG 11/01/2024 Given BCG 10/26/2024 Given BCG 10/18/2024 Given BCG 10/11/2024 Given zoster vaccine, inactivated 12/12/2023 Recorded pneumococcal 20-valent conjugate vaccine 12/12/2023 Recorded zoster vaccine, inactivated 10/07/2023 Recorded influenza virus vaccine, inactivated 03/07/2023 Recorded influenza virus vaccine, inactivated 04/08/2022 Recorded SARS-CoV-2 (COVID-19) mRNA BNT-162b2 vax 04/21/2021 Recorded influenza virus vaccine, inactivated 03/22/2021 Recorded SARS-CoV-2 (COVID-19) mRNA BNT-162b2 vax 07/21/2020 Recorded 2024-07-05: [id number] SARS-CoV-2 (COVID-19) mRNA BNT-162b2 vax 06/30/2020 Recorded 2024-07-05: [id number] influenza virus vaccine, inactivated 03/10/2019 Recorded influenza virus vaccine, inactivated 02/11/2018 Recorded influenza virus vaccine, inactivated 04/10/2016 Recorded influenza virus vaccine, inactivated 03/10/2015 Recorded pneumococcal 23-valent vaccine 08/21/2010 Recorded Lab Results Ambulatory Point of Care Results Bilirubin Urine Dipstick: Negative (02/02/25 10:20:00) Blood Urine Dipstick: Negative (02/02/25 10:20:00) Glucose Urine Dipstick: Negative (02/02/25 10:20:00) Ketones Urine Dipstick: Negative (02/02/25 10:20:00) Leukocytes Urin (more content not included)... Normal [facility] Comment on above: Result Comment: Elec tronically Signed By: Rebeca WEATHERS, Shannan\.br\Date and Time Signed: 02/02/25 11:19 EDT Glucose mean value [Mass/vol ume] in Blood Estimated from glycated hemoglobinOrdered By: Jorge Luis Malik on 02-01-2025 Average glucose Estimated from glycated hemoglobin (Bld) [Mass/Vol] 148 mg/dL [facility] Hemoglobin A1c percentageOrd ered By: Jorge Luis Malik on 02-01-2025 HbA1c (Bld) [Mass fraction] 6.8 % High 4.5-6.2 [facility] Comment on above: ADA RECOMMENDED LIMI T 4.0 - 6.0ADA THERAPEUTIC TARGET < 7.0ACTION SUGGESTED> 7.0 [facility] Fish and Urine Cyt o ([facility])on 01-06-2025 UV[facility] & UC Diagnosis Info Invalid Interpretation Code [facility] Comment on above: Result Comment: A:Ur ine,Bladder Wash:Bladder Wash Diagnosis Summary - Adequate cellularity for evaluation. Diagnosis Summary - The [facility] FISH study detected normal copy numbers for chromosomes 3, 7, 17, and 9p21. 200 cells were analyzed in this evaluation. No evidence of aneuploidy for chromosomes 3, 7, or 17 or deletion of the 9p21 locus was found in cells present in this specimen. This test does not rule out the possibility of a low grade non-invasive papillary urothelial carcinoma. These findings should be correlated with cytology and cystoscopy results. * CPT: 54881, 43071. Microscopic Notes - Microscopic Notes - Abnormal cells 9p21 deletions: Abnormal cells aneploid events: Total cells analyzed: 200 Hematuria: Gross Description Site ID:A color Yellow fixative Alcohol Received 100 mls of clear yellow fluid with the patient's name and, Bladder Wash on the vial. Electronically signed by : on: 01/06/2025 03:17:54 Performed By: #### 1 [id number] #### [facility] [address] [place] [address] Ambulatory Visit Summaryon 0 12-27-2024 Ambulatory Visit Summary Ambulatory Visit Summary JAM RAMIREZ JR :1940 Visit Date:12/27/2024 Ambulatory Visit Instructions Your Diagnosis History of bladder cancer Your Care Team Attending Physician - LIBBY QUINTANA, Lalo Mclain Primary Care Physician - JORGE LUIS MALIK MD This Is Your Medications List Contact prescribing physician if questions or concerns acetaminophen (Tylenol) albuterol ciprofloxacin (Cipro 500 mg Tab) gabapentin (gabapentin 100 mg Cap) glipiZIDE (glipiZIDE 10 mg Tab) hydrOXYzine (hydrOXYzine hydrochloride 25 mg Tab) metformin omeprazole oxcarbazepine (oxcarbazepine 300 mg Tab) Procedures Performed Cystoscopy (12/27/2024), TURBT - Transurethral resection of bladder tumor (08/26/2024), Cystoscopy (08/11/2024), History of hernia repair. Discharge Vitals Temperature (Temporal Artery) 37 ???C Heart Rate (Peripheral) 76 Respiratory Rate 16 Blood Pressure 130/78 Height 179 cm Height 70 in Weight 81 kg Weight 178.574 lb BMI 25.28 What to do next You Need to Schedule the Following Appointments Follow Up with LIBBY QUINTANA, Lalo Mclain, URL When: Comments: BCG x3, cysto in 3 mos Where: [facility] [address] [place] [address]- [phone] Medications What How Much When Instructions Unchanged acetaminophen (Tylenol) 500 Milligram By Mouth 3 times a day Contact prescribing physician if questions or concerns Unchanged albuterol See instructions Contact prescribing physician if questions or concerns Unchanged ciprofloxacin (Cipro 500 mg Tab) 1 Tablets By Mouth Every day Take 1 tablet the day before the procedure and 1 tablet after the procedure, every 3 months Contact prescribing physician if questions or concerns [...] Contact prescribing physician if questions or concerns Medications and Immunizations Administered Given lidocaine Top 2% Gel w/Appl 6 mL, 6 mL, Topical. For: Allergies codeine (Lightheadedness) Problems Ongoing - Any problem that you are currently receiving treatment for. BPH with urinary obstruction Chronic GERD Diabetes Gross hematuria History of bladder cancer Hypertension Screening PSA (prostate specific antigen) Urothelial carcinoma of bladder Patient Survey You may receive a survey via text or e-mail asking about your office visit. Please share your experience with us by completing your survey. We appreciate your feedback and thank you for choosing us for your care. Education Materials Cancer Screening for Males A cancer screening is a test or exam that checks for cancer. Work with your health care provider to create a cancer screening schedule that protects your health. Who should have screening? All people who are male should be considered for screening of certain cancers, including colorectal cancer, prostate cancer, lung cancer, and skin cancer. Your health care provider may recommend screenings for other types of cancer if: ??? You have had cancer before. ??? You have a family member with cancer. ??? You have genes that could increase the risk of cancer. ??? You have risk factors for certain cancers, such as current or past use of tobacco products or being overweight. What are the benefits of screening? Cancer screening is done to look for cancer in the very early stages, before it spreads and becomes harder to treat and before you would start to notice symptoms. Finding cancer early improves the chances of successful treatment. It may save your life. When should I be screened for cancer? When you should be screened for cancer depends on: ??? Your age. ??? Your medical history and your family's medical history. ??? Certain lifestyle factors, such as smoking or other use of tobacco products. ??? Environmental exposure, such as to asbestos. How is screening done? Colorectal cancer Colorectal cancer screening looks for cancer or for growths called polyps that often form before cancer starts. Tests to look for cancer or polyps include: ??? Colonoscopy or flexible sigmoidoscopy. For these procedures, a flexible tube with a small camera is inserted into the rectum. ??? CT colonography. This test uses X-rays and a contrast dye to check the colon for polyps. Tests to look for cancer in the stool (feces) include: ??? Guaiac-based fecal (more content not included)... Normal [facility] U[facility] Fish and Urine Cyt o ([facility])on 12-27-2024 [facility] Method of Extraction Bladder Wash Normal [facility] Comment on above: Performed By: #### 1 [id number] #### [facility] [address] [place] [address] [facility] Number of Jars 1 Invalid Interpretation Code [facility] Comment on above: Performed By: #### 1 [id number] #### [facility] [address] [place] [address] [facility] Specimen Bladder Wash Normal [facility] Comment on above: Performed By: #### 1 [id number] #### [facility] [address] [place] [address] [facility] Type of Service Technical Only Normal [facility] Comment on above: Performed By: #### 1 [id number] #### [facility] [address] [place] [address] Urology Office/Clinic Noteon 12-27-2024 Urology Office/Clinic Note Urology Office/Clinic Note Chief Complaint cystoscopy HPI Staff 84 year old male cysto/needs fish/cytol, 3 month bt check Previous Dx: Urothelial carcinoma of bladder History of Present Illness Tests reviewed: reviewed op note I have reviewed the previous health record information and history for this patient from Dr. Souza and Kimi Grayson PA-C. I have reviewed and verified the staff [...] Physical Exam Vitals & Measurements T: 37 ???C(Temporal Artery) HR: 76(Peripheral) RR: 16 BP: 130/78 HT: 179 cm HT: 70 in WT: 178.574 lb WT: 81 kg BMI: 25.28 General Appearance: alert, no distress, well nourished, well developed male. Procedure Operative Information Anesthesia Type: Local Procedure: Local Cystoscopy Complications: None Surgical risks, benefits, details of the procedure have been explained to the patient. Full informed consent has been obtained. Intraoperative Information Prepped: Patient is brought back to the endoscopy suite. Patient is placed in supine position. Patient prepped in the usual fashion with Betadine solution. 2% Xylocaine Jelly is placed per Urethra. After waiting several minutes, the Cystoscope is introduced. The Urethra is: Normal The Prostatic Urethra is: Unobstructed The Bladder: Well-healed scars. No new tumors., Trabeculated: Moderate (2) The Ureteral orifices: Show efflux of clear urine Specimens Removed: Bladder wash sent for FISH and Cytology test Removal: Cystoscope is removed. The patient tolerated it well. Postoperative Information Patient is discharged home with antibiotic coverage. Follow up arranged. Assessment/Plan 1. History of bladder cancer (Z85.51: Personal history of malignant neoplasm of bladder) Cytol was atypical, suspicious. CT AP w/wo con 07/12/24 TBH - 4.3 cm RSP simple cyst. No mass or stones. 1.4 cm rounded but slightly irregular fluid density within posterior R aspect of bladder adjacent to UO. Favors a ureterocele given fluid density however has irregular spiculations from its inferior margin on coronal view. Mass vs ureterocele. No wall thickening. S/p Cysto 08/11/24 - 3 cm papillary lesion proximal to the R UO on floor, classic TCC appearing lesion. TURBT 08/26/24 - High-grade, non-invasive papillary urothelial carcinoma. No evidence of CIS. BCG #6/6 completed 11/15/24. Pt had first IO surveillance cysto to check for bladder tumor recurrence without complications today. Pt took prophylactic abx prior to procedure. Will send bladder wash specimen for FISH/cytol and call pt if positive. Cysto today was negative for recurrence. Follow up for cysto in 3 mos or sooner if needed. Pt understands and agrees with plan. -Schedule BCG #3 or gem. if bcg is unavailable. Follow-up With When Contact Information LIBBY QUINTANA, Lalo Mclain, URL [facility] [address] [place] [phone] Additional Instructions: BCG x3, cysto in 3 mos Patient Education Cancer Screening for Males I, Amy David, personally scribed for Dr. Souza on 12/27/2024 08:25:01. . Problem List/Past Medical History Ongoing BPH with urinary obstruction Chronic GERD Diabetes Gross hematuria History of bladder cancer Hypertension Screening PSA (prostate specific antigen) Urothelial carcinoma of bladder Historical No qualifying data Procedure/Surgical History Cystoscopy (12/27/2024), TURBT - Transurethral resection of bladder tumor (08/26/2024), Cystoscopy (08/11/2024), History of hernia repair. Medications albuterol, See [...] Tylenol, 500 mg, Oral, TID Allergies codeine (Lightheadedness) Social History Alcohol - Low Risk, 09/06/2024 Beer, 1-2 times per month, 09/06/2024 Substance Abuse - Denies Substance Abuse, 09/06/2024 Never., 07/05/2024 Tobacco - No Risk, 09/06/2024 Former smoker, quit more than 30 days ago Tobacco Use:. Never Smokeless Tobacco Use:. Cigarettes, Yes, 11/15/2024 Family History Breast cancer: Mother. Diabetes: Father. Stroke: Father. Immunizatio (more content not included)... Normal [facility] Comment on above: Result Comment: Elec tronically Signed By: LIBBY QUINTANA, Lalo Aguilar\Date and Time Signed: 12/27/24 08:49 EDT Office Visiton 12-14-2024 Follow-up visit [id number] Ashley,Jam Cabrera 1940 M Date Provider Department Center 12/14/2024 [facility] [place] [place] Family History Family Status - Relation Status Age at Mother Father Level of Service:69903 [place] OFFICE/OUTPATIENT ESTABLISHED MOD MDM 30 MIN Normal [facility] Ambulatory Visit Summaryon 0 11-15-2024 Ambulatory Visit Summary Ambulatory Visit Summary JAM RAMIREZ JR :1940 Visit Date:11/15/2024 Ambulatory Visit Instructions Your Diagnosis Urothelial carcinoma of bladder Your Care Team Attending Physician - RADHA WEATHERS, KIMI Baires Primary Care Physician - JORGE LUIS MALIK MD This Is Your Medications List acetaminophen (Tylenol) albuterol gabapentin (gabapentin 100 mg Cap) glipiZIDE (glipiZIDE 10 mg Tab) hydrOXYzine (hydrOXYzine hydrochloride 25 mg Tab) metformin omeprazole oxcarbazepine (oxcarbazepine 300 mg Tab) Procedures Performed TURBT - Transurethral resection of bladder tumor (08/26/2024), Cystoscopy (08/11/2024), History of hernia repair. Discharge Vitals Heart Rate (Peripheral) 60 Respiratory Rate 16 Blood Pressure 154/76 Height 179 cm Height 70 in Weight 81 kg Weight 178.574 lb BMI 25.28 Medications What How Much When Instructions Unchanged acetaminophen (Tylenol) 500 Milligram By Mouth 3 times a day Unchanged albuterol See instructions Unchanged gabapentin (gabapentin 100 mg Cap) 1 Capsules Unchanged glipiZIDE (glipiZIDE 10 mg Tab) 1 Tablets Unchanged hydrOXYzine (hydrOXYzine hydrochloride 25 mg Tab) 1 Tablets Unchanged metformin 500 Milligram By Mouth Every day Unchanged omeprazole 20 Milligram By Mouth Every day Unchanged oxcarbazepine (oxcarbazepine 300 mg Tab) 1 Tablets Allergies codeine (Lightheadedness) Problems Ongoing - Any problem that you are currently receiving treatment for. BPH with urinary obstruction Chronic GERD Diabetes Gross hematuria Hypertension Screening PSA (prostate specific antigen) Urothelial carcinoma of bladder Patient Survey You may receive a survey via text or e-mail asking about your office visit. Please share your experience with us by completing your survey. We appreciate your feedback and thank you for choosing us for your care. Normal [facility] Urology Office/Clinic Noteon 11-15-2024 Urology Office/Clinic Note Urology Office/Clinic Note Chief Complaint BCG 6 out of 6 full dose HPI Staff BCG #6 of 6 No issues last BCG tx. Denies any pain or visible blood Review of Systems PHQ Score Initial Depression Screen Score: 0 SCORE No fever, chills, malaise, myalgia. No abdominal pain, nausea, vomiting. No dysuria, blood in urine. No change in urgency/frequency, straining, stream changes. No discharge, odor, or change in color of urine. Physical Exam Vitals & Measurements HR: 60(Peripheral) RR: 16 BP: 154/76 HT: 179 cm HT: 70 in WT: 178.574 lb WT: 81 kg BMI: 25.28 General: nontoxic, NAD Mouth: moist mucosa Lungs: normal respiratory effort Cardio: regular rate, good distal perfusion Abdomen: nondistended Neurologic: Grossly normal Skin: No rashes or suspicious lesions Assessment/Plan 1. Urothelial carcinoma of bladder (C67.9: Malignant neoplasm of bladder, unspecified) Cytol was atypical, suspicious. CT AP w/wo con 07/12/24 TBH - 4.3 cm RSP simple cyst. No mass or stones. 1.4 cm rounded but slightly irregular fluid density within posterior R aspect of bladder adjacent to UO. Favors a ureterocele given fluid density however has irregular spiculations from its inferior margin on coronal view. Mass vs ureterocele. No wall thickening. S/p Cysto 08/11/24 - 3 cm papillary lesion proximal to the R UO on floor, classic TCC appearing lesion. TURBT 08/26/24 - High-grade, non-invasive papillary urothelial carcinoma. No evidence of CIS. Catheter removed IO 09/02/24. UA today shows moderate blood and small leuks (expected PO). TODAY: Pt here for BCG #6 of 6. IO UA trace hgb only. Asx. Tolerated procedure well. Due for scope in Reminder in. The patient was placed in the appropriate position and under sterile conditions, the urethra is catheterized with a 14 Fr straight catheter and the bladder is emptied. 50 cc of sterile 0.9 NS with one vial of HARRISON BCG was placed into the bladder and the straight catheter was removed. The patient will hold the solution in the bladder for two hours, turning every fifteen minutes 1/4 turn to allow coating of the bladder surface. The patient should call the office or present to the Emergency Department for development of fever, chills, or flu-like symptoms. Symptoms such as urinary frequency, urgency, and other bladder irritation symptoms are expected Ordered: BCG, 50 mg, IntraVesical, Once, Stop date 11/15/24 14:15:00 EDT, Routine, Start date 11/15/24 14:15:00 EDT, 11/15/24 14:15:00 EDT Urnls Dip Stick Auto w/o Microscopy POC [id number] Follow-up With When Contact Information [facility] [address] [place] [address] Business (1) Additional Instructions: our electrician locomotive will be contacting you for follow-up Patient Education Bladder Cancer Problem List/Past Medical History Ongoing BPH with urinary obstruction Chronic GERD Diabetes Gross hematuria Hypertension Screening PSA (prostate specific antigen) Urothelial carcinoma of bladder Historical No qualifying data Procedure/Surgical History TURBT - Transurethral resection of bladder tumor (08/26/2024), Cystoscopy (08/11/2024), History of hernia repair. Medications albuterol, See Instructions gabapentin 100 mg Cap, 100 mg= 1 cap(s) glipiZIDE 10 mg Tab, 10 mg= 1 tab(s) hydrOXYzine hydrochloride 25 mg Tab, 25 mg= 1 tab(s) metformin, 500 mg, Oral, Daily omeprazole, 20 mg, Oral, Daily oxcarbazepine 300 mg Tab, 300 mg= 1 tab(s) [place] BCG Live (for intravesical use), 50 mg, IntraVesical, Once Tylenol, 500 mg, Oral, TID Allergies codeine (Lightheadedness) Social History Alcohol - Low Risk, 09/06/2024 Beer, 1-2 times per month, 09/06/2024 Substance Abuse - Denies Substance Abuse, 09/06/2024 Never., 07/05/2024 Tobacco - No Risk, 09/06/2024 Former smoker, quit more than 30 days ago Tobacco Use:. Never Smokeless Tobacco Use:. Cigarettes, Yes, 11/15/2024 Family History Breast cancer: Mother. Diabetes: Father. Stroke: Father. Immunizations Vaccine Date Status Comments BCG 11/08/2024 Given BCG 11/01/2024 Given BCG 10/26/2024 Given BCG 10/18/2024 Given BCG 10/11/2024 Given zoster vaccine, inactivated 12/12/2023 Recorded pneumococcal 20-valent conjugate vaccine 12/12/2023 Recorded zoster vaccine, inactivated 10/07/2023 Recorded influenza virus vaccine, inactivated 03/07/2023 Recorded influenza virus vaccine, inactivated 04/08/2022 Recorded SARS-CoV-2 (COVID-19) mRNA BNT-162b2 vax 04/21/2021 Recorded influenza virus vaccine, inactivated 03/22/2021 Recorded SARS-CoV-2 (COVID-19) mRNA BNT-162b2 vax 07/21/2020 Recorded 2024-07-05: [id number] SARS-CoV-2 (COVID-19) mRNA BNT-162b2 vax 06/30/2020 Recorded 2024-07-05: [id number] influenza virus vaccine, inactivated 03/10/2019 Recorded influenza virus vaccine, inactivated 02/11/2018 Recorded influenza virus vaccine, inactivated 04/10/2016 Recorded influenza virus vaccin (more content not included)... Normal [facility] Comment on above: Result Comment: Elec tronically Signed By: KIMI GRAYSON PA-C\.lucia\Date and Time Signed: 11/15/24 14:17 EDT Reminderson 11-11-2024 Reminders Reminders - From: Lali Paul To: EU - Recalls Souza; Sent: 09/28/2024 16:01:52 EDT Show up: 09/30/2024 16:01:00 EDT Subject: cysto Due Date/Time: 10/25/2024 16:01:00 EDT Reminder/Recall Patient will need Cysto/fish/cytol after BCG tx #6 () Last BCG tx 11/22/24.LG Spot held for 12/27/24 in [place] office Patient scheduled.LG Normal [place] [facility] Urology Office/Clinic Noteon 11-08-2024 Urology Office/Clinic Note Urology Office/Clinic Note Chief Complaint BCG 5 of 6 HPI Staff BCG #5 of 6 Pt reports that he is doing well, with no urinary problems Review of Systems PHQ Score Initial Depression Screen Score: 0 SCORE No fever, chills, malaise, myalgia. No abdominal pain, nausea, vomiting. No dysuria, blood in urine. No change in urgency/frequency, straining, stream changes. No discharge, odor, or change in color of urine. Physical Exam Vitals & Measurements HR: 81(Peripheral) BP: 138/88 HT: 70 in HT: 179 cm WT: 178.574 lb WT: 81 kg BMI: 25.28 General: nontoxic, NAD Mouth: moist mucosa Lungs: normal respiratory effort Cardio: regular rate, good distal perfusion Abdomen: nondistended Neurologic: Grossly normal Skin: No rashes or suspicious lesions Assessment/Plan 1. Urothelial carcinoma of bladder (C67.9: Malignant neoplasm of bladder, unspecified) Cytol was atypical, suspicious. CT AP w/wo con 07/12/24 TBH - 4.3 cm RSP simple cyst. No mass or stones. 1.4 cm rounded but slightly irregular fluid density within posterior R aspect of bladder adjacent to UO. Favors a ureterocele given fluid density however has irregular spiculations from its inferior margin on coronal view. Mass vs ureterocele. No wall thickening. S/p Cysto 08/11/24 - 3 cm papillary lesion proximal to the R UO on floor, classic TCC appearing lesion. TURBT 08/26/24 - High-grade, non-invasive papillary urothelial carcinoma. No evidence of CIS. Catheter removed IO 09/02/24. UA today shows moderate blood and small leuks (expected PO). TODAY: Pt here for BCG #5 of 6. IO UA negative. Was tired again after last week's dose but improved the following day. No other new sx. Tolerated procedure well. Return in 1 week for #6. Schedule scope today. The patient was placed in the appropriate position and under sterile conditions, the urethra is catheterized with a 14 Fr straight catheter and the bladder is emptied. 50 cc of sterile 0.9 NS with one vial of HARRISON BCG was placed into the bladder and the straight catheter was removed. The patient will hold the solution in the bladder for two hours, turning every fifteen minutes 1/4 turn to allow coating of the bladder surface. The patient should call the office or present to the Emergency Department for development of fever, chills, or flu-like symptoms. Symptoms such as urinary frequency, urgency, and other bladder irritation symptoms are expected [1]5 Ordered: BCG, 50 mg, IntraVesical, Once, Stop date 11/08/24 13:14:00 EDT, Routine, Start date 11/08/24 13:14:00 EDT, 11/08/24 13:14:00 EDT Orders: Body Mass Index (BMI) documented 3008F Current tobacco non-user 1036F Depression Screening Negative 3352F Influenza immunization status assessed 1030F Medication list documented in medical record 1159F Most recent diastolic blood pressure 80-89 mm Hg 3079F Patient screen for fall risk: no falls in last year or 1 fall with no injury in last year 1101F Review of all meds by a prescribing practitioner or clinical pharmacist documented in EHR 1160F Systolic BP 130-139 mm Hg (Most Recent) 3075F Urnls Dip Stick Auto w/o Microscopy POC 12242 Follow-up With When Contact Information KIMI GRAYSON PA-C, DANIELA In 1 week [address] [place] [address] Additional Instructions: Patient Education Bladder Cancer Problem List/Past Medical History Ongoing BPH with urinary obstruction Chronic GERD Diabetes Gross hematuria Hypertension Screening PSA (prostate specific antigen) Urothelial carcinoma of bladder Historical No qualifying data Procedure/Surgical History TURBT - Transurethral resection of bladder tumor (08/26/2024), Cystoscopy (08/11/2024), History of hernia repair. Medications albuterol, See Instructions, Not taking gabapentin 100 mg Cap, 100 mg= 1 cap(s), Not taking glipiZIDE 10 mg Tab, 10 mg= 1 tab(s), Not taking hydrOXYzine hydrochloride 25 mg Tab, 25 mg= 1 tab(s), Not taking metformin, 500 mg, Oral, Daily, Not taking omeprazole, 20 mg, Oral, Daily, Not taking oxcarbazepine 300 mg Tab, 300 mg= 1 tab(s), Not taking [place] BCG Live (for intravesical use), 50 mg, IntraVesical, Once Tylenol, 500 mg, Oral, TID, Not taking Allergies codeine (Lightheadedness) Social History Alcohol - Low Risk, 09/06/2024 Beer, 1-2 times per month, 09/06/2024 Substance Abuse - Denies Substance Abuse, 09/06/2024 Never., 07/05/2024 Tobacco - No Risk, 09/06/2024 Former smoker, quit more than 30 days ago Tobacco Use:. Never Smokeless Tobacco Use:. Cigarettes, Yes, 11/08/2024 Family History Breast cancer: Mother. Diabetes: Father. Stroke: Father. Immunizations Vaccine Date Status Comments BCG 11/01/2024 Given BCG 10/26/2024 Given BCG 10/18/2024 Given BCG 10/11/2024 Given zoster vaccine, inactivated 12/12/2023 Recorded pneumococcal 20-valent conjugate vaccine 12/12/2023 Recorded zoster vaccine, inactivated 10/07/2023 Recorded influenza v (more content not included)... Normal [facility] Comment on above: Result Comment: Elec tronically Signed By: KIMI GRAYSON PA-C\.br\Date and Time Signed: 11/08/24 13:15 EDT Ambulatory Visit Summaryon 0 11-01-2024 Ambulatory Visit Summary Ambulatory Visit Summary ASHLEYJAM WINCHESTER JR :1940 Visit Date:11/01/2024 Ambulatory Visit Instructions Your Diagnosis Urothelial carcinoma of bladder Your Care Team Attending Physician - KIMI GRAYSON PA-C Primary Care Physician - JORGE LUIS MALIK MD This Is Your Medications List Contact prescribing physician if questions or concerns acetaminophen (Tylenol) albuterol gabapentin (gabapentin 100 mg Cap) glipiZIDE (glipiZIDE 10 mg Tab) hydrOXYzine (hydrOXYzine hydrochloride 25 mg Tab) metformin omeprazole oxcarbazepine (oxcarbazepine 300 mg Tab) Procedures Performed TURBT - Transurethral resection of bladder tumor (08/26/2024), Cystoscopy (08/11/2024), History of hernia repair. Discharge Vitals Heart Rate (Peripheral) 59 Respiratory Rate 16 Blood Pressure 159/99 Height 179 cm Height 70 in Weight 80.3 kg Weight 177.031 lb BMI 25.06 What to do next Scheduled Follow-Up Appointments Friday 1:00 PM EDT With: KIMI GRAYSON PA-C Where: [facility] [address] [place] [address]- Friday 1:00 PM EDT With: KIMI GRAYSON PA-C Where: [facility] [address] [place] [address]- You Need to Schedule the Following Appointments Follow Up with KIMI GRAYSON PA-C, URL When: In 1 week Where: [address] [place] [address] Medications What How Much When Instructions Unchanged acetaminophen (Tylenol) 500 Milligram By Mouth [...] Contact prescribing physician if questions or concerns Medications and Immunizations Administered Given [place] BCG Live (for intravesical use), 50 mg, IntraVesical. For: Urothelial carcinoma of bladder BCG, IntraVesical Allergies codeine (Lightheadedness) Problems Ongoing - Any problem that you are currently receiving treatment for. BPH with urinary obstruction Chronic GERD Diabetes Gross hematuria Hypertension Screening PSA (prostate specific antigen) Urothelial carcinoma of bladder Patient Survey You may receive a survey via text or e-mail asking about your office visit. Please share your experience with us by completing your survey. We appreciate your feedback and thank you for choosing us for your care. Education Materials Bladder Cancer Bladder cancer is a condition where abnormal tissue (a tumor) grows in the bladder. The bladder is the organ that holds urine. Two tubes (ureters) carry urine from the kidneys to the bladder. The bladder wall is made of layers of tissue. Cancer that spreads through these layers of the bladder wall becomes more difficult to treat. What increases the risk? The following factors may make you more likely to develop this condition: ??? Smoking. ??? Working where there are risks (occupational exposures), such as working with rubber, leather, clothing fabric, dyes, chemicals, or paint. ??? Being 55 years of age or older. ??? Being male. ??? Having long-term bladder inflammation. ??? Having a history of cancer. This includes: ? A family history of bladder cancer. ? Having had bladder cancer before. ? Having had certain treatments for cancer before, such as: ? Medicines to kill cancer cells (chemotherapy). ? Strong X-ray beams or high-energy capsules to kill cancer cells and shrink tumors (radiation therapy). ??? Having been exposed to arsenic. This is a poisonous substance. What are the signs or symptoms? Early symptoms of this condition include: ??? Blood in your urine. ??? Pain when urinating. ??? Infections of your urinary system (urinary tract infections or UTIs) that happen often. ??? Having to urinate sooner or more often than normal. Late symptoms of this condition include: ??? Not being able to urinate. ??? Pain on one side of your lower back. ??? Loss of appetite. ??? Weight loss. ??? Tiredness (fatigue). ??? Swelling in your feet. ??? Bone pain. How is this diagnosed (more content not included)... Normal [facility] Urology Office/Clinic Noteon 11-01-2024 Urology Office/Clinic Note Urology Office/Clinic Note Chief Complaint BCG 4 out of 6 full dose HPI Staff BCG #4 of 6 full dose Denies any urological issues. Review of Systems PHQ Score Initial Depression Screen Score: 0 SCORE No fever, chills, malaise, myalgia. No abdominal pain, nausea, vomiting. No dysuria, blood in urine. No change in urgency/frequency, straining, stream changes. No discharge, odor, or change in color of urine. Physical Exam Vitals & Measurements HR: 59(Peripheral) RR: 16 BP: 159/99 HT: 70 in HT: 179 cm WT: 177.031 lb WT: 80.3 kg BMI: 25.06 General: nontoxic, NAD Mouth: moist mucosa Lungs: normal respiratory effort Cardio: regular rate, good distal perfusion Abdomen: nondistended Neurologic: Grossly normal Skin: No rashes or suspicious lesions Assessment/Plan 1. Urothelial carcinoma of bladder (C67.9: Malignant neoplasm of bladder, unspecified) Cytol was atypical, suspicious. CT AP w/wo con 07/12/24 TBH - 4.3 cm RSP simple cyst. No mass or stones. 1.4 cm rounded but slightly irregular fluid density within posterior R aspect of bladder adjacent to UO. Favors a ureterocele given fluid density however has irregular spiculations from its inferior margin on coronal view. Mass vs ureterocele. No wall thickening. S/p Cysto 08/11/24 - 3 cm papillary lesion proximal to the R UO on floor, classic TCC appearing lesion. TURBT 08/26/24 - High-grade, non-invasive papillary urothelial carcinoma. No evidence of CIS. Catheter removed IO 09/02/24. UA today shows moderate blood and small leuks (expected PO). TODAY: Pt here for BCG #4 of 6. IO UA negative. Was tired after last week's dose but improved the following day. Tolerated procedure well. Return in 1 week for #5. The patient was placed in the appropriate position and under sterile conditions, the urethra is catheterized with a 14 Fr straight catheter and the bladder is emptied. 50 cc of sterile 0.9 NS with one vial of HARRISON BCG was placed into the bladder and the straight catheter was removed. The patient will hold the solution in the bladder for two hours, turning every fifteen minutes 1/4 turn to allow coating of the bladder surface. The patient should call the office or present to the Emergency Department for development of fever, chills, or flu-like symptoms. Symptoms such as urinary frequency, urgency, and other bladder irritation symptoms are expected. Ordered: BCG, 50 mg, IntraVesical, Once, Stop date 11/01/24 13:28:00 EDT, Routine, Start date 11/01/24 13:28:00 EDT, 11/01/24 13:28:00 EDT Urnls Dip Stick Auto w/o Microscopy POC [id number] Follow-up With When Contact Information KIMI GRAYSON PA-C, URL In 1 week [address] [place] [address] Additional Instructions: Patient Education Bladder Cancer Problem List/Past Medical History Ongoing BPH with urinary obstruction Chronic GERD Diabetes Gross hematuria Hypertension Screening PSA (prostate specific antigen) Urothelial carcinoma of bladder Historical No qualifying data Procedure/Surgical History TURBT - Transurethral resection of bladder tumor (08/26/2024), Cystoscopy (08/11/2024), History of hernia repair. Medications albuterol, See Instructions gabapentin 100 mg Cap, 100 mg= 1 cap(s) glipiZIDE 10 mg Tab, 10 mg= 1 tab(s) hydrOXYzine hydrochloride 25 mg Tab, 25 mg= 1 tab(s) metformin, 500 mg, Oral, Daily omeprazole, 20 mg, Oral, Daily oxcarbazepine 300 mg Tab, 300 mg= 1 tab(s) Tylenol, 500 mg, Oral, TID Allergies codeine (Lightheadedness) Social History Alcohol - Low Risk, 09/06/2024 Beer, 1-2 times per month, 09/06/2024 Substance Abuse - Denies Substance Abuse, 09/06/2024 Never., 07/05/2024 Tobacco - No Risk, 09/06/2024 Former smoker, quit more than 30 days ago Tobacco Use:. Never Smokeless Tobacco Use:. Cigarettes, Yes, 11/01/2024 Family History Breast cancer: Mother. Diabetes: Father. Stroke: Father. Immunizations Vaccine Date Status Comments BCG 11/01/2024 Given BCG 10/26/2024 Given BCG 10/18/2024 Given BCG 10/11/2024 Given zoster vaccine, inactivated 12/12/2023 Recorded pneumococcal 20-valent conjugate vaccine 12/12/2023 Recorded zoster vaccine, inactivated 10/07/2023 Recorded influenza virus vaccine, inactivated 03/07/2023 Recorded influenza virus vaccine, inactivated 04/08/2022 Recorded SARS-CoV-2 (COVID-19) mRNA BNT-162b2 vax 04/21/2021 Recorded influenza virus vaccine, inactivated 03/22/2021 Recorded SARS-CoV-2 (COVID-19) mRNA BNT-162b2 vax 07/21/2020 Recorded 2024-07-05: [id number] SARS-CoV-2 (COVID-19) mRNA BNT-162b2 vax 06/30/2020 Recorded 2024-07-05: [id number] influenza virus vaccine, inactivated 03/10/2019 Recorded influenza virus vaccine, inactivated 02/11/2018 Recorded influenza virus vaccine, inactivated 04/10/2016 Recorded influenza virus vaccine, inactivated 03/10/2015 Recorded pneumococcal 23-valent vaccine 08/21/2010 Recorded Lab Results Ambulatory Point of Care Results B (more content not included)... [facility] Comment on above: Result Comment: Elec tronically Signed By: KIMI GRAYSON PA-C\.br\Date and Time Signed: 11/01/24 13:45 EDT Ambulatory Visit Summaryon 0 10-26-2024 Ambulatory Visit Summary Ambulatory Visit Summary JAM RAMIREZ JR :1940 Visit Date:10/26/2024 Ambulatory Visit Instructions Your Diagnosis Urothelial carcinoma of bladder Your Care Team Attending Physician - KIMI GRAYSON PA-C Primary Care Physician - JORGE LUIS MALIK MD This Is Your Medications List acetaminophen (Tylenol) albuterol gabapentin (gabapentin 100 mg Cap) glipiZIDE (glipiZIDE 10 mg Tab) hydrOXYzine (hydrOXYzine hydrochloride 25 mg Tab) metformin omeprazole oxcarbazepine (oxcarbazepine 300 mg Tab) Procedures Performed TURBT - Transurethral resection of bladder tumor (08/26/2024), Cystoscopy (08/11/2024), History of hernia repair. Discharge Vitals Temperature (Oral) 36.7 ???C Heart Rate (Peripheral) 56 Respiratory Rate 16 Blood Pressure 148/88 Height 70 in Height 179 cm Weight 177.031 lb Weight 80.3 kg BMI 25.06 What to do next Scheduled Follow-Up Appointments Friday 1:00 PM EDT With: KIMI GRAYSON PA-C Where: [facility] [address] [place] [address] [place] [address]- Friday 1:00 PM EDT With: KIMI GRAYSON PA-C Where: [facility] [address] [place] [address] [place] [address]- Friday 1:00 PM EDT With: KIMI GRAYSON PA-C Where: [facility] [address] [place] [address] [place] [address]- Medications What How Much When Instructions Unchanged acetaminophen (Tylenol) 500 Milligram By Mouth 3 times a day Unchanged albuterol See instructions Unchanged gabapentin (gabapentin 100 mg Cap) 1 Capsules Unchanged glipiZIDE (glipiZIDE 10 mg Tab) 1 Tablets Unchanged hydrOXYzine (hydrOXYzine hydrochloride 25 mg Tab) 1 Tablets Unchanged metformin 500 Milligram By Mouth Every day Unchanged omeprazole 20 Milligram By Mouth Every day Unchanged oxcarbazepine (oxcarbazepine 300 mg Tab) 1 Tablets Allergies codeine (Lightheadedness) Problems Ongoing - Any problem that you are currently receiving treatment for. BPH with urinary obstruction Chronic GERD Diabetes Gross hematuria Hypertension Screening PSA (prostate specific antigen) Urothelial carcinoma of bladder Patient Survey You may receive a survey via text or e-mail asking about your office visit. Please share your experience with us by completing your survey. We appreciate your feedback and thank you for choosing us for your care. Normal [facility] Urology Office/Clinic Noteon 10-26-2024 Urology Office/Clinic Note Urology Office/Clinic Note Chief Complaint BCG #3 of 6 HPI Staff BCG #3 of 6. Previous dx: urothelial carcinoma of bladder (S/p TURBT 08/26/24). Review of Systems PHQ Score Initial Depression Screen Score: 0 SCORE No fever, chills, malaise, myalgia. No abdominal pain, nausea, vomiting. No dysuria, blood in urine. No change in urgency/frequency, straining, stream changes. No discharge, odor, or change in color of urine. Physical Exam Vitals & Measurements T: 36.7 ???C(Oral) HR: 56(Peripheral) RR: 16 BP: 148/88 HT: 179 cm HT: 70 in WT: 80.3 kg WT: 177.031 lb BMI: 25.06 General: nontoxic, NAD Mouth: moist mucosa Lungs: normal respiratory effort Cardio: regular rate, good distal perfusion Abdomen: nondistended Neurologic: Grossly normal Skin: No rashes or suspicious lesions Assessment/Plan 1. Urothelial carcinoma of bladder (C67.9: Malignant neoplasm of bladder, unspecified) Cytol was atypical, suspicious. CT AP w/wo con 07/12/24 TBH - 4.3 cm RSP simple cyst. No mass or stones. 1.4 cm rounded but slightly irregular fluid density within posterior R aspect of bladder adjacent to UO. Favors a ureterocele given fluid density however has irregular spiculations from its inferior margin on coronal view. Mass vs ureterocele. No wall thickening. S/p Cysto 08/11/24 - 3 cm papillary lesion proximal to the R UO on floor, classic TCC appearing lesion. TURBT 08/26/24 - High-grade, non-invasive papillary urothelial carcinoma. No evidence of CIS. Catheter removed IO 09/02/24. UA today shows moderate blood and small leuks (expected PO). TODAY: Pt here for BCG #3 of 6. IO UA negative. Reports no sx w last week's dose. Tolerated procedure well. Return in 1 week for #4. The patient was placed in the appropriate position and under sterile conditions, the urethra is catheterized with a 14 Fr straight catheter and the bladder is emptied. 50 cc of sterile 0.9 NS with one vial of HARRISON BCG was placed into the bladder and the straight catheter was removed. The patient will hold the solution in the bladder for two hours, turning every fifteen minutes 1/4 turn to allow coating of the bladder surface. The patient should call the office or present to the Emergency Department for development of fever, chills, or flu-like symptoms. Symptoms such as urinary frequency, urgency, and other bladder irritation symptoms are expected. Ordered: BCG, 50 mg, IntraVesical, Once, Stop date 10/26/24 12:06:00 EDT, Routine, Start date 10/26/24 12:06:00 EDT, 10/26/24 12:06:00 EDT Urnls Dip Stick Auto w/o Microscopy POC [id number] Follow-up With When Contact Information RADHA WEATHERS, KIMI Baires, URL In 1 week [address] [place] [address] Additional Instructions: Patient Education Bladder Cancer Problem List/Past Medical History Ongoing BPH with urinary obstruction Chronic GERD Diabetes Gross hematuria Hypertension Screening PSA (prostate specific antigen) Urothelial carcinoma of bladder Historical No qualifying data Procedure/Surgical History TURBT - Transurethral resection of bladder tumor (08/26/2024), Cystoscopy (08/11/2024), History of hernia repair. Medications albuterol, See Instructions gabapentin 100 mg Cap, 100 mg= 1 cap(s) glipiZIDE 10 mg Tab, 10 mg= 1 tab(s) hydrOXYzine hydrochloride 25 mg Tab, 25 mg= 1 tab(s) metformin, 500 mg, Oral, Daily omeprazole, 20 mg, Oral, Daily oxcarbazepine 300 mg Tab, 300 mg= 1 tab(s) Tylenol, 500 mg, Oral, TID Allergies codeine (Lightheadedness) Social History Alcohol - Low Risk, 09/06/2024 Beer, 1-2 times per month, 09/06/2024 Substance Abuse - Denies Substance Abuse, 09/06/2024 Never., 07/05/2024 Tobacco - No Risk, 09/06/2024 Former smoker, quit more than 30 days ago Tobacco Use:. Never Smokeless Tobacco Use:. Cigarettes, Yes, 10/26/2024 Family History Breast cancer: Mother. Diabetes: Father. Stroke: Father. Immunizations Vaccine Date Status Comments BCG 10/26/2024 Given BCG 10/18/2024 Given BCG 10/11/2024 Given zoster vaccine, inactivated 12/12/2023 Recorded pneumococcal 20-valent conjugate vaccine 12/12/2023 Recorded zoster vaccine, inactivated 10/07/2023 Recorded influenza virus vaccine, inactivated 03/07/2023 Recorded influenza virus vaccine, inactivated 04/08/2022 Recorded SARS-CoV-2 (COVID-19) mRNA BNT-162b2 vax 04/21/2021 Recorded influenza virus vaccine, inactivated 03/22/2021 Recorded SARS-CoV-2 (COVID-19) mRNA BNT-162b2 vax 07/21/2020 Recorded 2024-07-05: [id number] SARS-CoV-2 (COVID-19) mRNA BNT-162b2 vax 06/30/2020 Recorded 2024-07-05: TPV75 influenza virus vaccine, inactivated 03/10/2019 Recorded influenza virus vaccine, inactivated 02/11/2018 Recorded influenza virus vaccine, inactivated 04/10/2016 Recorded influenza virus vaccine, inactivated 03/10/2015 Recorded pneumococcal 23-valent vaccine 08/21/2010 Recorded Lab Results Ambulatory Point of Care Results Bilirubin Urine Dipst (more content not included)... Normal [facility] Comment on above: Result Comment: Elec tronically Signed By: RADHA WEATHERS, KIMI Baires\.br\Date and Time Signed: 10/26/24 12:11 EDT Urology Office/Clinic Noteon 10-18-2024 Urology Office/Clinic Note Urology Office/Clinic Note Chief Complaint BCG #2 of ^ HPI Staff BCG #2 of 6 full dose Dx: bladder neoplasm of uncertain malignant potential. pt denies any issues. no issues after last BCG Review of Systems PHQ Score Initial Depression Screen Score: 0 SCORE No fever, chills, malaise, myalgia. No abdominal pain, nausea, vomiting. No dysuria, blood in urine. No change in urgency/frequency, straining, stream changes. No discharge, odor, or change in color of urine. Physical Exam Vitals & Measurements T: 37 ???C(Oral) HR: 94(Peripheral) RR: 18 BP: 170/90 HT: 179 cm HT: 70 in WT: 84 kg WT: 185.188 lb BMI: 26.22 General: nontoxic, NAD Mouth: moist mucosa Lungs: normal respiratory effort Cardio: regular rate, good distal perfusion Abdomen: nondistended Neurologic: Grossly normal Skin: No rashes or suspicious lesions Assessment/Plan 1. Urothelial carcinoma of bladder (C67.9: Malignant neoplasm of bladder, unspecified) Cytol was atypical, suspicious. CT AP w/wo con 07/12/24 TB[facility] - 4.3 cm RSP simple cyst. No mass or stones. 1.4 cm rounded but slightly irregular fluid density within posterior R aspect of bladder adjacent to UO. Favors a ureterocele given fluid density however has irregular spiculations from its inferior margin on coronal view. Mass vs ureterocele. No wall thickening. S/p Cysto 08/11/24 - 3 cm papillary lesion proximal to the R UO on floor, classic TCC appearing lesion. TURBT 08/26/24 - High-grade, non-invasive papillary urothelial carcinoma. No evidence of CIS. Catheter removed IO 09/02/24. UA today shows moderate blood and small leuks (expected PO). TODAY: Pt here for BCG #2 of 6. IO UA completely negative. Reports some mild urgency since last dose. Tolerated procedure well. Return in 1 week for #3. The patient was placed in the appropriate position and under sterile conditions, the urethra is catheterized with a 14 Fr straight catheter and the bladder is emptied. 50 cc of sterile 0.9 NS with one vial of HARRISON BCG was placed into the bladder and the straight catheter was removed. The patient will hold the solution in the bladder for two hours, turning every fifteen minutes 1/4 turn to allow coating of the bladder surface. The patient should call the office or present to the Emergency Department for development of fever, chills, or flu-like symptoms. Symptoms such as urinary frequency, urgency, and other bladder irritation symptoms are expected. Ordered: BCG, 50 mg, IntraVesical, Once, Stop date 10/18/24 14:00:00 EDT, Routine, Start date 10/18/24 14:00:00 EDT, 10/18/24 14:00:00 EDT Orders: Urnls Dip Stick Auto w/o Microscopy POC [id number] Follow-up With When Contact Information RADHA WEATHERS, KIMI Baires, URL In 1 week [address] [place] [address] Additional Instructions: Patient Education Bladder Cancer Problem List/Past Medical History Ongoing BPH with urinary obstruction Chronic GERD Diabetes Gross hematuria Hypertension Screening PSA (prostate specific antigen) Urothelial carcinoma of bladder Historical No qualifying data Procedure/Surgical History TURBT - Transurethral resection of bladder tumor (08/26/2024), Cystoscopy (08/11/2024), History of hernia repair. Medications albuterol, See Instructions gabapentin 100 mg Cap, 100 mg= 1 cap(s) glipiZIDE 10 mg Tab, 10 mg= 1 tab(s) hydrOXYzine hydrochloride 25 mg Tab, 25 mg= 1 tab(s) metformin, 500 mg, Oral, Daily omeprazole, 20 mg, Oral, Daily oxcarbazepine 300 mg Tab, 300 mg= 1 tab(s) [place] BCG Live (for intravesical use), 50 mg, IntraVesical, Once Tylenol, 500 mg, Oral, TID Allergies codeine (Lightheadedness) Social History Alcohol - Low Risk, 09/06/2024 Beer, 1-2 times per month, 09/06/2024 Substance Abuse - Denies Substance Abuse, 09/06/2024 Never., 07/05/2024 Tobacco - No Risk, 09/06/2024 Former smoker, quit more than 30 days ago Tobacco Use:. Never Smokeless Tobacco Use:. Cigarettes, Yes, 10/18/2024 Family History Breast cancer: Mother. Diabetes: Father. Stroke: Father. Immunizations Vaccine Date Status Comments BCG 10/11/2024 Given zoster vaccine, inactivated 12/12/2023 Recorded pneumococcal 20-valent conjugate vaccine 12/12/2023 Recorded zoster vaccine, inactivated 10/07/2023 Recorded influenza virus vaccine, inactivated 03/07/2023 Recorded influenza virus vaccine, inactivated 04/08/2022 Recorded SARS-CoV-2 (COVID-19) mRNA BNT-162b2 vax 04/21/2021 Recorded influenza virus vaccine, inactivated 03/22/2021 Recorded SARS-CoV-2 (COVID-19) mRNA BNT-162b2 vax 07/21/2020 Recorded 2024-07-05: [id number] SARS-CoV-2 (COVID-19) mRNA BNT-162b2 vax 06/30/2020 Recorded 2024-07-05: TPV75 influenza virus vaccine, inactivated 03/10/2019 Recorded influenza virus vaccine, inactivated 02/11/2018 Recorded influenza virus vaccine, inactivated 04/10/2016 Recorded influenza virus vaccine, inactivated 03/10/2015 Recorded pneumococcal 23-valent vaccine (more content not included)... Normal [facility] Comment on above: Result Comment: Elec tronically Signed By: KIMI GRAYSON PA-C\Date and Time Signed: 10/18/24 14:02 EDT Urology Office/Clinic Noteon 10-15-2024 Urology Office/Clinic Note Urology Office/Clinic Note Chief Complaint BCG #1 of 6 HPI Staff BCG #1 of 6 (full dose) Dx: bladder cancer and BPH Pt denies any urinary complaints at this time. Review of Systems No fever, chills, malaise, myalgia.No abdominal pain, nausea, vomiting. No dysuria, blood in urine. No change in urgency/frequency, straining, stream changes. No discharge, odor, or change in color of urine. Physical Exam Vitals & Measurements T: 37 ???C(Temporal Artery) HR: 68(Peripheral) RR: 16 BP: 133/72 HT: 70 in HT: 179 cm WT: 84 kg WT: 185.188 lb BMI: 26.22 General: nontoxic, NAD Mouth: moist mucosa Lungs: normal respiratory effort Cardio: regular rate, good distal perfusion Abdomen: nondistended Neurologic: Grossly normal Skin: No rashes or suspicious lesions Assessment/Plan 1. 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 CT AP w/wo con 07/12/24 [facility] - 4.3 cm RSP simple cyst. No mass or stones. 1.4 cm rounded but slightly irregular fluid density within posterior R aspect of bladder adjacent to UO. Favors a ureterocele given fluid density however has irregular spiculations from its inferior margin on coronal view. Mass vs ureterocele. No wall thickening. S/p Cysto 08/11/24 - 3 cm papillary lesion proximal to the R UO on floor, classic TCC appearing lesion. TURBT 08/26/24 - High-grade, non-invasive papillary urothelial carcinoma. No evidence of CIS. Catheter removed IO 09/02/24. UA today shows moderate blood and small leuks (expected PO). TODAY: Pt here for BCG #1 of 6. IO UA completely negative. Tolerated procedure well. Return in 1 week for #2. The patient was placed in the appropriate position and under sterile conditions, the urethra is catheterized with a 14 Fr straight catheter and the bladder is emptied. 50 cc of sterile 0.9 NS with one vial of HARRISON BCG was placed into the bladder and the straight catheter was removed. The patient will hold the solution in the bladder for two hours, turning every fifteen minutes 1/4 turn to allow coating of the bladder surface. The patient should call the office or present to the Emergency Department for development of fever, chills, or flu-like symptoms. Symptoms such as urinary frequency, urgency, and other bladder irritation symptoms are expected. Ordered: BCG, 50 mg, IntraVesical, Once, Stop date 10/11/24 13:37:00 EDT, Routine, Start date 10/11/24 13:37:00 EDT, 10/11/24 13:37:00 EDT Urnls Dip Stick Auto w/o Microscopy POC [id number] Follow-up With When Contact Information RADHA WEATHERS, KIMI Baires, URL In 1 week [address] 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 Medications albuterol, See Instructions gabapentin 100 mg Cap, 100 mg= 1 cap(s) glipiZIDE 10 mg Tab, 10 mg= 1 tab(s) hydrOXYzine hydrochloride 25 mg Tab, 25 mg= 1 tab(s) metformin, 500 mg, Oral, Daily omeprazole, 20 mg, Oral, Daily oxcarbazepine 300 mg Tab, 300 mg= 1 tab(s) [place] BCG Live (for intravesical use), 50 mg, IntraVesical, Once Tylenol, 500 mg, Oral, TID Allergies codeine (Lightheadedness) Social History Alcohol - Low Risk, 09/06/2024 Beer, 1-2 times per month, 09/06/2024 Substance Abuse - Denies Substance Abuse, 09/06/2024 Never., 07/05/2024 Tobacco - No Risk, 09/06/2024 Former smoker, quit more than 30 days ago Tobacco Use:. Never Smokeless Tobacco Use:. Cigarettes, Yes, 10/11/2024 Family History Breast cancer: Mother. Diabetes: Father. Stroke: Father. Immunizations Vaccine Date Status Comments zoster vaccine, inactivated 12/12/2023 Recorded pneumococcal 20-valent conjugate vaccine 12/12/2023 Recorded zoster vaccine, inactivated 10/07/2023 Recorded influenza virus vaccine, inactivated 03/07/2023 Recorded influenza virus vaccine, inactivated 04/08/2022 Recorded SARS-CoV-2 (COVID-19) mRNA BNT-162b2 vax 04/21/2021 Recorded influenza virus vaccine, inactivated 03/22/2021 Recorded SARS-CoV-2 (COVID-19) mRNA BNT-162b2 vax 07/21/2020 Recorded 2024-07-05: TPV75 SARS-CoV-2 (COVID-19) mRNA BNT-162b2 vax 06/30/2020 Recorded 2024-07-05: TPV75 influenza virus vaccine, inactivated 03/10/2019 Recorded influenza virus vaccine, inactivated 02/11/2018 Recorded influenza virus vaccine, inactivated 04/10/2016 Recorded influenza virus vaccine, inactivated 03/10/2015 Recorded pneumococcal 23-valent vaccine 08/21/2010 Recorded Lab Results Ambulatory Point of Care Results Bilirubin U (more content not included)... Normal [facility] Comment on above: Result Comment: Elec tronically Signed By: KIMI GRAYSON PA-C\.br\Date and Time Signed: 10/15/24 15:58 EDT Ambulatory Visit Summaryon 0 10-11-2024 Ambulatory Visit Summary Ambulatory Visit Summary JAM RAMIREZ JR :1940 Visit Date:10/11/2024 Ambulatory Visit Instructions Your Diagnosis Bladder neoplasm of uncertain malignant potential Your Care Team Attending Physician - KIMI GRAYSON PA-C Primary Care Physician - JORGE LUIS MALIK MD This Is Your Medications List acetaminophen (Tylenol) albuterol gabapentin (gabapentin 100 mg Cap) glipiZIDE (glipiZIDE 10 mg Tab) hydrOXYzine (hydrOXYzine hydrochloride 25 mg Tab) metformin omeprazole oxcarbazepine (oxcarbazepine 300 mg Tab) Procedures Performed TURBT - Transurethral resection of bladder tumor (08/26/2024), Cystoscopy (08/11/2024), History of hernia repair. Discharge Vitals Temperature (Temporal Artery) 37 ???C Heart Rate (Peripheral) 68 Respiratory Rate 16 Blood Pressure 133/72 Height 179 cm Height 70 in Weight 84 kg Weight 185.188 lb BMI 26.22 What to do next Scheduled Follow-Up Appointments Friday 1:40 PM EDT With: KIMI GRAYSON PA-C Where: [facility] [address] [place] [address]- Friday 1:00 PM EDT With: KIMI GRAYSON PA-C Where: [facility] [address] [place] [address]- Friday 1:00 PM EDT With: KIMI GRAYSON PA-C Where: [facility] [address] [place] [address]- Friday 1:00 PM EDT With: KIMI GRAYSON PA-C Where: [facility] [address] [place] [address]- Friday 1:00 PM EDT With: KIMI GRAYSON PA-C Where: [facility] [address] [address]- You Need to Schedule the Following Appointments Follow Up with KIMI GRAYSON PA-C, URL When: In 1 week Where: [address] [place] [address] Medications What How Much When Instructions Unchanged acetaminophen (Tylenol) 500 Milligram By Mouth 3 times a day Unchanged albuterol See instructions Unchanged gabapentin (gabapentin 100 mg Cap) 1 Capsules Unchanged glipiZIDE (glipiZIDE 10 mg Tab) 1 Tablets Unchanged hydrOXYzine (hydrOXYzine hydrochloride 25 mg Tab) 1 Tablets Unchanged metformin 500 Milligram By Mouth Every day Unchanged omeprazole 20 Milligram By Mouth Every day Unchanged oxcarbazepine (oxcarbazepine 300 mg Tab) 1 Tablets Allergies codeine (Lightheadedness) Problems Ongoing - Any problem that you are currently receiving treatment for. 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 Please share your experience with us by completing your survey. We appreciate your feedback and thank you for choosing us for your care. Education Materials Bladder Cancer Bladder cancer is a condition where abnormal tissue (a tumor) grows in the bladder. The bladder is the organ that holds urine. Two tubes (ureters) carry urine from the kidneys to the bladder. The bladder wall is made of layers of tissue. Cancer that spreads through these layers of the bladder wall becomes more difficult to treat. What increases the risk? The following factors may make you more likely to develop this condition: ??? Smoking. ??? Working where there are risks (occupational exposures), such as working with rubber, leather, clothing fabric, dyes, chemicals, or paint. ??? Being 55 years of age or older. ??? Being male. ??? Having long-term bladder inflammation. ??? Having a history of cancer. This includes: ? A family history of bladder cancer. ? Having had bladder cancer before. ? Having had certain treatments for cancer before, such as: ? Medicines to kill cancer cells (chemotherapy). ? Strong X-ray beams or high-energy capsules to kill cancer cells and shrink tumors (radiation therapy). ??? Having been exposed to arsenic. This is a poisonous substance. What are the signs or symptoms? Early symptoms of this condition include: ??? Blood in your urine. ??? Pain when urinating. ??? Infections of your urinary system (urinary tract infections or UTIs) that happen often. ??? Having to urinate sooner or more often than normal. Late symptoms of this condition include: ??? Not being able to urinate. ??? Pain on one side of your lower back. ??? Loss of appetite. ??? Weight loss. ??? Tiredness (fatigue). ??? Swelling in your feet. ??? Bone shaista (more content not included)... Normal [facility] Office Visiton 09-28-2024 Follow-up visit [id number] Jam Ramirez Jr. 1940 M Date Provider Department Center 09/28/2024 [id number], E[facility]AB [facility] Hos No family history on file Level of Service:20638 SC OFFICE/OUTPATIENT ESTABLISHED MOD MDM 30 MIN Normal [facility] Orders Onlyon 09-28-2024 Orders Only [id number] Jam Ramirez JrDoug 1940 M Date Provider Department Martha 09/28/2024 [id number] [facility] Hos No family history on file [facility] ALL BASIC METABOLIC PANELon 09-27-2024 Anion gap [Moles/Vol] 12.5 mmol/L [facility] Calcium [Mass/Vol] 8.9 mg/dL 8.5 - 10. 1 mg/dL [facility] Chloride [Moles/Vol] 100 mmol/L 98 - 10 7 mmol/L [facility] CO2 [Moles/Vol] 30.3 mmol/L 21.0 - 32.0 mmol/L [facility] Creatinine [Mass/Vol] 1.28 mg/dL 0.70 - 1.30 mg/dL [facility] GFR/1.73 sq M.predicted CKD-EPI (S/P/Bld) [Vol rate/Area] >60 >=60 mL/min/1.73m 2 [facility] Glucose [Mass/Vol] 185 mg/dL High 74 - 106 mg/dL [facility] Interpretation and review of laboratory results Abnormal [facility] Potassium [Moles/Vol] 3.8 mmol/L 3.5 - 5.1 mmol/L [facility] Sodium [Moles/Vol] 139 mmol/L 136 - 145 mmol/L [facility] TBH EGFR-NON AF [place] 54 Low >=60 mL/min/1.73m 2 [facility] Urea nitrogen [Mass/Vol] 22 mg/dL High 7.0 - 18.0 mg/dL [facility] Urea nitrogen/Creatinine [Mass ratio] 17.2 mg/mg [facility] CA ECHO DOPPLER COMPLETEon 0 09-09-2024 [place] [address] Cardiology Report Signed Patient: JAM RAMIREZ Jr. MR#: [id number] : 1940 Acct:[id number] Age/Sex: 84 / M ADM Date: 09/09/24 Loc: CARD Attending Dr: Kristen Gill M.D. Ordering Physician: Kristen Gill M.D. Date of Service: 09/09/24 Procedure(s): CA echo doppler complete Accession Number(s): [id number] cc: Kristen Gill M.D.; Jorge Luis Malik M.D. Patient Name: JAM RAMIREZ MR#: [id number] : 1940 Exam Date: 09/09/2024 Ordering Doctor: DR KRISTEN GILL M.D. ECHOCARDIOGRAM REPORT PROCEDURE: CA ECHO DOPPLER COMPLETE INDICATIONS: Dyspnea on exertion, COPD, diabetes COMPARISON: None. DESCRIPTION: COMPLETE ECHOCARDIOGRAM Real-time transthoracic echocardiography with 2D, M-mode, spectral and color flow Doppler performed. QUALITY: Technical quality was good. LEFT VENTRICLE: Normal chamber size. Moderate left ventricular hypertrophy. LV EF: Global left ventricular systolic function is normal; visually estimated ejection fraction is 55%. No significant wall motion abnormalities. DIASTOLIC: Diastolic function is indeterminate. ATRIAL SEPTUM: Visually appears intact. LEFT ATRIUM: Mild dilatation. RIGHT ATRIUM: Normal chamber size. RIGHT VENTRICLE: Normal chamber size. Normal right ventricular systolic function. TRICUSPID VALVE: Normal mobility and thickness. No stenosis with trivial regurgitation. No evidence of pulmonary hypertension. RVSP 31 mmHg MITRAL VALVE: Normal mobility and thickness. No evidence of mitral valve stenosis. There is no mitral annular calcification. Trivial mitral regurgitation. AORTIC VALVE: Normal trileaflet appearance. Thickened aortic valve. Normal leaflet mobility. No evidence of aortic valve stenosis. Mild aortic regurgitation. AORTIC ROOT: Aortic root is dilated (4.3 cm). Ascending aorta is dilated (4.2 cm). PULMONIC VALVE: Normal thickness and mobility. No stenosis. No regurgitation. PERICARDIUM: No evidence of pericardial effusion. IVC: Collapses with inspirations. IVC is normal in size. CONCLUSION: 1. Global left ventricular systolic function is normal; visually estimated ejection fraction is 55% 2. Normal right ventricular size and systolic function 3. Diastolic function is indeterminate 4. The left atrium is mildly dilated 5. Mild aortic valve regurgitation 6. The aortic root and ascending aorta are mildly dilated Adult Echocardiography Procedure Report Left Ventricle LVEDD (3.7 - 5.6 cm): 4.39 cm LVESD (2.2 - 4.0 cm): 3.58 cm LVIVS thickness (0.6 - 1.2 cm): 1.67 cm LVPW thickness (0.5 - 1.0 cm): 1.32 cm e': 0.06 m/s E - e': 8.24 LVOT Max Gradient: 2.53 mm[Hg], 2.53 mm[Hg] Peak Velocity (LVOT): 0.80 m/s, 0.80 m/s LVOT Diameter 2.58 cm Left Atrium LA Volume Index (2D A2C): 41.02 ml/m2 Left Atrium Systolic Dimension: 4.21 cm Mitral Valve MV E to A Ratio: 0.54 Mitral Valve A-Wave Peak Velocity: 0.86 m/s Mitral Valve E-Wave Peak Velocity: 0.46 m/s Right Ventricle Aorta AO Root Diam: 4.25 cm Aortic Valve AoV Area (Peak Red): 3.83 cm2, 3.83 cm2 AoV Area (VTI): 3.23 cm2, 3.18 cm2 Deceleration [place]: 1.54 m/s2 Pressure Half-Time: 612.98 ms Peak Velocity(Antegrade Flow): 1.09 m/s Peak Gradient(Antegrade Flow): 4.72 mm[Hg] Mean Velocity(Antegrade Flow): 0.75 m/s Mean Gradient(Antegrade Flow): 2.57 mm[Hg] Velocity Time Integral: 23.83 cm Tricuspid Valve Peak Velocity (Regurgitant Flow): 2.48 m/s, 2.65 m/s Pulmonic Valve Mean Gradient: 1.58 mm[Hg] Mean Velocity: 0.58 m/s Peak Velocity: 0.87 m/s, 0.87 m/s Peak Gradient: 3.01 mm[Hg], 3.01 mm[Hg] Right Atrium Dictated by: Kristen Gill M.D. on 09/09/2024 at 16:05 Approved by: Kristen Gill M.D. on 09/09/2024 at 16:08 Dictated By: Kristen Gill M.D. (more content not included)... [facility] Radiology, Radiologist, - 09/09/2024 [place] [address] Cardiology Report Signed Patient: JAM RAMIREZ Jr. MR#: [id number] : 1940 Acct:[id number] Age/Sex: 84 / M ADM Date: 09/09/24 Loc: CARD Attending Dr: Kristen Gill M.D. Ordering Physician: Kristen Gill M.D. Date of Service: 09/09/24 Procedure(s): CA echo doppler complete Accession Number(s): [id number] cc: Kristen Gill M.D.; Jorge Luis Malik M.D. Patient Name: JAM RAMIREZ MR#: [id number] : 1940 Exam Date: 09/09/2024 Ordering Doctor: DR KRISTEN GILL M.D. ECHOCARDIOGRAM REPORT PROCEDURE: CA ECHO DOPPLER COMPLETE INDICATIONS: Dyspnea on exertion, COPD, diabetes COMPARISON: None. DESCRIPTION: COMPLETE ECHOCARDIOGRAM Real-time transthoracic echocardiography with 2D, M-mode, spectral and color flow Doppler performed. QUALITY: Technical quality was good. LEFT VENTRICLE: Normal chamber size. Moderate left ventricular hypertrophy. LV EF: Global left ventricular systolic function is normal; visually estimated ejection fraction is 55%. No significant wall motion abnormalities. DIASTOLIC: Diastolic function is indeterminate. ATRIAL SEPTUM: Visually appears intact. LEFT ATRIUM: Mild dilatation. RIGHT ATRIUM: Normal chamber size. RIGHT VENTRICLE: Normal chamber size. Normal right ventricular systolic function. TRICUSPID VALVE: Normal mobility and thickness. No stenosis with trivial regurgitation. No evidence of pulmonary hypertension. RVSP 31 mmHg MITRAL VALVE: Normal mobility and thickness. No evidence of mitral valve stenosis. There is no mitral annular calcification. Trivial mitral regurgitation. AORTIC VALVE: Normal trileaflet appearance. Thickened aortic valve. Normal leaflet mobility. No evidence of aortic valve stenosis. Mild aortic regurgitation. AORTIC ROOT: Aortic root is dilated (4.3 cm). Ascending aorta is dilated (4.2 cm). PULMONIC VALVE: Normal thickness and mobility. No stenosis. No regurgitation. PERICARDIUM: No evidence of pericardial effusion. IVC: Collapses with inspirations. IVC is normal in size. CONCLUSION: 1. Global left ventricular systolic function is normal; visually estimated ejection fraction is 55% 2. Normal right ventricular size and systolic function 3. Diastolic function is indeterminate 4. The left atrium is mildly dilated 5. Mild aortic valve regurgitation 6. The aortic root and ascending aorta are mildly dilated Adult Echocardiography Procedure Report Left Ventricle LVEDD (3.7 - 5.6 cm): 4.39 cm LVESD (2.2 - 4.0 cm): 3.58 cm LVIVS thickness (0.6 - 1.2 cm): 1.67 cm LVPW thickness (0.5 - 1.0 cm): 1.32 cm e': 0.06 m/s E - e': 8.24 LVOT Max Gradient: 2.53 mm[Hg], 2.53 mm[Hg] Peak Velocity (LVOT): 0.80 m/s, 0.80 m/s LVOT Diameter 2.58 cm Left Atrium LA Volume Index (2D A2C): 41.02 ml/m2 Left Atrium Systolic Dimension: 4.21 cm Mitral Valve MV E to A Ratio: 0.54 Mitral Valve A-Wave Peak Velocity: 0.86 m/s Mitral Valve E-Wave Peak Velocity: 0.46 m/s Right Ventricle Aorta AO Root Diam: 4.25 cm Aortic Valve AoV Area (Peak Red): 3.83 cm2, 3.83 cm2 AoV Area (VTI): 3.23 cm2, 3.18 cm2 Deceleration [place]: 1.54 m/s2 Pressure Half-Time: 612.98 ms Peak Velocity(Antegrade Flow): 1.09 m/s Peak Gradient(Antegrade Flow): 4.72 mm[Hg] Mean Velocity(Antegrade Flow): 0.75 m/s Mean Gradient(Antegrade Flow): 2.57 mm[Hg] Velocity Time Integral: 23.83 cm Tricuspid Valve Peak Velocity (Regurgitant Flow): 2.48 m/s, 2.65 m/s Pulmonic Valve Mean Gradient: 1.58 mm[Hg] Mean Velocity: 0.58 m/s Peak Velocity: 0.87 m/s, 0.87 m/s Peak Gradient: 3.01 mm[Hg], 3.01 mm[Hg] Right Atrium Dictated by: Kristen Gill M.D. on 09/09/2024 at 16:05 Approved by: Kristen Gill M.D. on 09/09/2024 at 16:08 Dictated By: Kristen Gill M.D. 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 He will start those 2 medications and have labs in 1 week. RX's sent to [facility]. BMP faxed to [facility]. Also made him a follow up with Dr. Gill. Patient verbalized understanding. I also asked him to keep track of BP's 1-2 hours after taking medications. [facility] [address] Souza' office called to make you aware of patient's elevated BP reading in their office. It was 173/94. Patient told her he took it himself at home this morning and it was 150/100+. He is not currently on any antihypertensive medications. He's scheduled for echo this week. Did you want to start something? Please advise. Thanks. 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 Discharge Vitals Heart Rate (Peripheral) 69 Respiratory Rate 20 Blood Pressure 173/94 Height 179 cm Height 70 in Weight 84.5 kg Weight 186.29 lb BMI 26.37 What to do next You Need to Schedule the Following Appointments Follow Up with LIBBY QUINTANA, Lalo Mclain, ERICAL When: Comments: schedule BCG #6 to start in 1 month, then cysto 1 month after BCG Where: [facility] [address], [place] [address]- [phone] Medications What How Much When Instructions Unchanged acetaminophen (Tylenol) 500 Milligram By Mouth [...] Contact prescribing physician if questions or concerns Allergies codeine (Lightheadedness) Problems Ongoing - Any problem that you are currently receiving treatment for. 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 Please share your experience with us by completing your survey. We appreciate your feedback and thank you for choosing us for your care. Education Materials Chemotherapy Chemotherapy is a cancer treatment. It uses medicines to slow down or stop the growth of cancer. You may have chemotherapy to: ??? Cure your cancer. ??? Prevent the cancer from growing or spreading (metastasizing). ??? Ease symptoms and improve your quality of life (palliative care). ??? Improve the effects of radiation treatment. ??? Shrink a tumor before surgery. ??? Rid the body of cancer cells that remain after having a tumor surgically removed. The length of chemotherapy treatment depends on many factors, including: ??? The type and stage of your cancer. ??? How you respond to the chemotherapy. ??? Your side effects. What are the risks? Generally, this is a safe treatment. However, problems may occur, including: ??? Infection. ??? Bleeding. ??? Allergic reactions to medicines. You may have side effects from chemotherapy. What side effects you have depend on a variety of factors, including: ??? The type of chemotherapy medicine used. ??? Your dosage. ??? How long the medicine is used for. ??? Your overall health. What happens before treatment? You will meet with your cancer care team to discuss: ? Your treatment schedule. ? How your chemotherapy medicine will be given. ? Common side effects and how to prevent or treat them, which may include being given medicines. ??? You may have blood tests. What happens during treatment? Chemotherapy may be given continuously over time, or it may be given in cycles. Some common ways chemotherapy may be given include: ??? As a pill or capsule. ??? As a shot (injection). ??? As a skin (topical) cream. ??? As a special wafer that is put in your body where the cancer is. The wafer contains chemotherapy medicine. ??? As an injection into the cerebrospinal fluid (CSF) in the brain or spinal cord (intraventricular or intrathecal chemotherapy). ??? As an installation into the intraperitoneal (abdominal) cavity. ??? Through a small, thin tube (catheter). There are different kinds of catheters. You elena (more content not included)... 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 Discharge Vitals Heart Rate (Peripheral) 69 Respiratory Rate 20 Blood Pressure 173/94 Height 179 cm Height 70 in Weight 84.5 kg Weight 186.29 lb BMI 26.37 What to do next You Need to Schedule the Following Appointments Follow Up with LIBBY QUINTANA, DANIELA Alba When: Comments: schedule BCG #6 to start in 1 month, then cysto 1 month after BCG Where: [facility] [address], [place] [address] [phone] Medications What How Much When Instructions Unchanged acetaminophen (Tylenol) 500 Milligram By Mouth [...] Contact prescribing physician if questions or concerns Allergies codeine (Lightheadedness) Problems Ongoing - Any problem that you are currently receiving treatment for. 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 Please share your experience with us by completing your survey. We appreciate your feedback and thank you for choosing us for your care. Education Materials Chemotherapy Chemotherapy is a cancer treatment. It uses medicines to slow down or stop the growth of cancer. You may have chemotherapy to: ??? Cure your cancer. ??? Prevent the cancer from growing or spreading (metastasizing). ??? Ease symptoms and improve your quality of life (palliative care). ??? Improve the effects of radiation treatment. ??? Shrink a tumor before surgery. ??? Rid the body of cancer cells that remain after having a tumor surgically removed. The length of chemotherapy treatment depends on many factors, including: ??? The type and stage of your cancer. ??? How you respond to the chemotherapy. ??? Your side effects. What are the risks? Generally, this is a safe treatment. However, problems may occur, including: ??? Infection. ??? Bleeding. ??? Allergic reactions to medicines. You may have side effects from chemotherapy. What side effects you have depend on a variety of factors, including: ??? The type of chemotherapy medicine used. ??? Your dosage. ??? How long the medicine is used for. ??? Your overall health. What happens before treatment? You will meet with your cancer care team to discuss: ? Your treatment schedule. ? How your chemotherapy medicine will be given. ? Common side effects and how to prevent or treat them, which may include being given medicines. ??? You may have blood tests. What happens during treatment? Chemotherapy may be given continuously over time, or it may be given in cycles. Some common ways chemotherapy may be given include: ??? As a pill or capsule. ??? As a shot (injection). ??? As a skin (topical) cream. ??? As a special wafer that is put in your body where the cancer is. The wafer contains chemotherapy medicine. ??? As an injection into the cerebrospinal fluid (CSF) in the brain or spinal cord (intraventricular or intrathecal chemotherapy). ??? As an installation into the intraperitoneal (abdominal) cavity. ??? Through a small, thin tube (catheter). There are different kinds of catheters. You elena (more content not included)... Normal [facility] Urology Office/Clinic Noteon 09-06-2024 Urology Office/Clinic Note Urology Office/Clinic Note Chief Complaint Patient is here PO to TURBT to review results HPI Staff PO TURBT 08/26/24, here to review path report. Patient is here today with his daughter Sarah. Patient is scheduled for echogram on 09/09/24 and appt with PCP office on friday due to elevated BP. Previous dx: gross hematuria, BPH w urinary obstruction, screening PSA, bladder neoplasm of uncertain malignant potential. Patient c/o of voiding in small amounts, and frequently. Occasionally has lower abd pain. None today. History of Present Illness Tests reviewed: reviewed UA, operative note, path report I have reviewed the previous health record information and history for this patient from Dr. Souza. I have reviewed and verified the staff [...] See HPI. Physical Exam Vitals & Measurements HR: 69(Peripheral) RR: 20 BP: 173/94 HT: 179 cm HT: 70 in WT: 186.29 lb WT: 84.5 kg BMI: 26.37 General Appearance: alert, no distress, well nourished, well developed male. Assessment/Plan Pt here with adult female today. 1. Urothelial carcinoma of bladder (C67.9: Malignant neoplasm of bladder, unspecified) Cytol was atypical, suspicious. CT AP w/wo con 07/12/24 TBH - 4.3 cm RSP simple cyst. No mass or stones. 1.4 cm rounded but slightly irregular fluid density within posterior R aspect of bladder adjacent to UO. Favors a ureterocele given fluid density however has irregular spiculations from its inferior margin on coronal view. Mass vs ureterocele. No wall thickening. S/p Cysto 08/11/24 - 3 cm papillary lesion proximal to the R UO on floor, classic TCC appearing lesion. TURBT 08/26/24 - High-grade, non-invasive papillary urothelial carcinoma. No evidence of CIS. Catheter removed IO 09/02/24. UA today shows moderate blood and small leuks (expected PO). The pathology report reveals the presence of bladder cancer, and I discussed the nature of this cancer in detail, including the grade of the cancer and the apparent stage, utilizing diagrams. We discussed the different treatment options for the cancer, based on the grade and stage of tumor. Discussed BCG tx in detail with surveillance cystoscopies. Mentioned national shortage and possibility of this tx being done at an external facility. Also discussed risk of recurrence and metastases. -Start BCG #6 in 1month. Then cysto 3 months from now 2. BPH with urinary obstruction (N40.1: Benign prostatic hyperplasia with lower urinary tract symptoms) S/p TURP 01/29/07 and evolve laser of prostate 11/24/07. S/p Cysto 08/11/24 - Unobstructed prostate. IPSS 11. No BPH meds. 3. Screening PSA (prostate specific antigen) (Z12.5: Encounter for screening for malignant neoplasm of prostate) S/p TRUS/bx 03/11/06. Last PSA 02/12/22 - 0.25. Monitored by PCP. -Can cont PSA screening with PCP Follow-up With When Contact Information LIBBY QUINTANA, Lalo Mclain, URL [facility] [address], [place] [address] [phone] Additional Instructions: schedule BCG #6 to start in 1 month, then cysto 1 month after BCG Patient Education Chemotherapy Bladder Cancer I, Amy David, personally scribed for Dr. Souza on 09/06/2024 10:56:46. . Documentation recorded by the scribe, Amy David, accurately reflects the services(s) I performed and decisions made by me. Authenticated by Dr. Souza on 09/06/2024 10:58:53. 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 Medications albuterol, See Instructions gabapentin 100 mg Cap, 100 mg= 1 cap(s) glipiZIDE 10 mg Tab, 10 mg= 1 tab(s) hydrOXYzine hydrochloride 25 mg Tab, 25 mg= 1 tab(s) metformin, 500 mg, Oral, Daily omeprazole, 20 mg, Oral, Daily oxcarbazepine 300 mg Tab, 300 mg= 1 tab(s) Tylenol, 500 mg, Oral, TID Allergies codeine (Lightheadedness) Social History Alcohol - Low Risk, 09/06/2024 Beer, 1-2 times per month, 09/06/2024 Substance Abuse - Denies Substance Abuse, 09/06/2024 Never., 07/05/2024 Tobacco - No (more content not included)... Normal [facility] Comment on above: Result Comment: Elec tronically Signed By: Lalo SOUZA MD\.br\Date and Time Signed: 09/06/24 10:58 EDT\.br\Electronically Co-Signed By: Amy David\.br\Date and Time Co-Signed: 09/06/24 10:57 EDT Ambulatory Visit Summaryon 0 09-02-2024 Ambulatory Visit Summary Ambulatory Visit Summary JAM RAMIREZ JR :1940 Visit Date:09/02/2024 Ambulatory Visit Instructions Your Care Team Attending Physician - Lalo SOUZA MD Primary Care Physician - JORGE LUIS MALIK MD This Is Your Medications List acetaminophen (Tylenol) albuterol ciprofloxacin (Cipro 500 mg Tab) gabapentin (gabapentin 100 mg Cap) glipiZIDE (glipiZIDE 10 mg Tab) hydrOXYzine (hydrOXYzine hydrochloride 25 mg Tab) metformin omeprazole oxcarbazepine (oxcarbazepine 300 mg Tab) Procedures Performed TURBT - Transurethral resection of bladder tumor (08/26/2024), History of hernia repair. What to do next Scheduled Follow-Up Appointments Friday 9:45 AM EDT With: Lalo SOUZA MD Where: [facility] [place] [phone] Medications What How Much When Instructions Unchanged acetaminophen (Tylenol) 500 Milligram By Mouth 3 times a day Unchanged albuterol See instructions Unchanged ciprofloxacin (Cipro 500 mg Tab) 1 Tablets By Mouth 2 times a day take one tab day before procedure and one tab after procedure Unchanged gabapentin (gabapentin 100 mg Cap) 1 Capsules Unchanged glipiZIDE (glipiZIDE 10 mg Tab) 1 Tablets Unchanged hydrOXYzine (hydrOXYzine hydrochloride 25 mg Tab) 1 Tablets Unchanged metformin 500 Milligram By Mouth Every day Unchanged omeprazole 20 Milligram By Mouth Every day Unchanged oxcarbazepine (oxcarbazepine 300 mg Tab) 1 Tablets Allergies codeine (Lightheadedness) Problems Ongoing - Any problem that you are currently receiving treatment for. 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 Please share your experience with us by completing your survey. We appreciate your feedback and thank you for choosing us for your care. Rivera Dawkins [facility] Rudy 08-26-2024 L Specimen: [id number] Received: 08/26/24 Status: SARAI Gould Num: [id number] Spec Type: Surgical Subm Dr: Lalo Souza MD Tissues: A Urinary Bladder - TUR (BLADDER TUMORS) Procedures: Brian DENSON/Blane L5 Age/ Patient Sex Location Account Attending Physician Jam Ramirez JR 84/M LABELL [id number] Lalo Souza MD SPEC NUM: [id number] RECD: 08/26/24 STATUS: SARAI GOULD NUM: [id number] CIRILO: 08/26/24 [facility] DR: Lalo Souza MD ENTERED: 08/26/24 [facility] DR: Ctarachita [place] SPEC TYPE: Surgical DEPT: RUSSELL CANTU ENTERED BY: [id number] RECV BY: [id number] ORDERED: HE/2, Gross/Micro L5 ORDERED: HE/2, Gross/Micro L5 Pathological Diagnosis Urinary bladder tumor, TURBT: -High-grade papillary urothelial carcinoma in almost all fragments without stromal invasion (associate pastor) -Only about 10% high-grade portion showing more tumor hypercellularity of the involved papillary fronds, otherwise without necrosis or other high-grade features observed -No evidence of urothelial carcinoma in situ (CIS) in at least 2 none papillary fragments assessed -Muscularis propria muscle are present in at least 3 fragments, also without tumor involvement Clinical Information Bladder tumor mass Gross Description Part A is received in formalin labeled with the patients name, date of , and bladder tumors are 1.3 g of corbett-altamirano to pink, rubbery tissue chips, 2.8 x 2.3 x 0.4 cm in aggregate. The specimen is filtered, and entirely submitted in A1?A2. (2, ns, [id number])DOUG Specimen: [id number] Received: 08/26/24 Status: SARAI Gould Num: [id number] Spec Type: Surgical Subm Dr: Lalo Souza MD Tissues: A Urinary Bladder - TUR (BLADDER TUMORS) Procedures: HE/2, Gross/Micro L5 Patient: Jam Ramirez JR [id number] (Continued) Specimen: [id number] Received: 08/26/24 (Continued) Signed (signature on file) Yoshi Blair MD 08/28/24 1838 Specimen: [id number] Received: 08/26/24 Status: SARAI Gould Num: [id number] Spec Type: Surgical Subm Dr: Lalo Souza MD Tissues: A Urinary Bladder - TUR (BLADDER TUMORS) Procedures: LASHAE/2, Gross/Blane L5 Patient: Jam Ramirez JR [id number] (Continued) Specimen: [id number] Received: 08/26/24 (Continued) Microscopic Description Microscopic examination is performed CPT Codes 75733 Specimen: [id number] Received: 08/26/24 Status: SARAI Gould Num: [id number] Spec Type: Surgical Subm Dr: Lalo Souza MD Tissues: A Urinary Bladder - TUR (BLADDER TUMORS) Procedures: HE/Yana, Gross/Micro L5 Patient: Jam Ramirez JR [id number] (Continued) Signed (signature on file) Alek-Jewel Blair MD 08/28/24 1838 Normal [facility] Office Visiton 08-23-2024 Follow-up visit [id number] Jam Ramirez Jr. 1940 M Date Provider Department Center 08/23/2024 [facility] No family history on file Level of Service:88827 SC OFFICE/OUTPATIENT NEW MODERATE MDM 45 MINUTES Normal [facility] Ambulatory Visit Summaryon 0 08-11-2024 Ambulatory Visit Summary Ambulatory Visit Summary JAM RAMIREZ JR :1940 Visit Date:08/11/2024 Ambulatory Visit Instructions Your Diagnosis Gross hematuria BPH with urinary obstruction Screening PSA (prostate specific antigen) Bladder neoplasm of uncertain malignant potential Your Care Team Attending Physician - Lalo SOUZA MD Primary Care Physician - JORGE LUIS MALIK MD This [...] Temperature (Oral) 37 ???C Heart Rate (Peripheral) 88 Respiratory Rate 16 Blood Pressure 180/100 Height 70 in Height 179 cm Weight 186.29 lb Weight 84.5 kg BMI 26.37 What to do next Scheduled Follow-Up Appointments Friday 9:30 AM EDT With: Lalo SOUZA MD Where: [facility] [address] [place] [address]- You Need to Schedule the Following Appointments Follow Up with Lalo SOUZA MD, URL When: Where: [facility] [address], [place] [address]- Medications What How Much When Instructions Unchanged ciprofloxacin (Cipro 500 mg Tab) 1 Tablets By Mouth 2 times a day take one tab day before procedure and one tab after procedure Unchanged acetaminophen (Tylenol) 500 Milligram By Mouth [...] Contact prescribing physician if questions or concerns Medications and Immunizations Administered Given lidocaine Top 2% Gel w/Appl 11 mL, 11 mL, Topical. For: Gross hematuria, BPH with urinary obstruction, Screening PSA (prostate specific antigen) Allergies codeine (Lightheadedness) Problems Ongoing - Any problem that you are currently receiving treatment for. 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 Please share your experience with us by completing your survey. We appreciate your feedback and thank you for choosing us for your care. Education Materials Transurethral Resection of Bladder Tumor, Care After The following information offers guidance on how to care for yourself after your procedure. Your health care provider may also give you more specific instructions. If you have problems or questions, contact your health care provider. What can I expect after the procedure? After the procedure, it is common to have: ??? A small amount of blood or small blood clots in your urine for up to 2 weeks. ??? Soreness or mild pain from your catheter. After your catheter is removed, you may have mild soreness, especially when urinating. ??? A need to urinate often. ??? Pain in your lower abdomen. Follow these instructions at home: Medicines ??? Take gsrs-xxs-huqhtyb and prescription medicines only as told by your health care provider. ??? If you were prescribed an antibiotic medicine, take it as told by your health care provider. Do not stop taking the antibiotic even if you start to feel better. ??? Ask your health care provider if the medicine prescribed to you: ? Requires you to avoid driving or using machinery. ? Can cause constipation. You may need to take these actions to prevent or treat constipation: ? Drink enough fluid to keep your urine pale yellow. ? Take wrqn-tfp-vqjweei or prescription medicines. ? Eat foods that are high in fiber, such as beans, whole grains, and fresh fruits and vegetables. ? Limit foods that are high in fat and processed sugars, such as fried or sweet foods. Activity ??? If you were given a sedative during the procedure, it can affect you for several hours. Do not drive or operate machinery until your health ca (more content not included)... Normal [facility] Urology Office/Clinic Noteon 08-11-2024 Urology Office/Clinic Note Urology Office/Clinic Note Chief Complaint CYSTO HPI Staff Here for cysto d/t gross hematuria. Abx taken. Cytol was atypical, suspicious. CT AP w/wo con 07/12/24 [facility]. pt did take ABX, History of Present Illness Tests reviewed: cytology, CT I have reviewed the previous health record information and history for this patient from Dr. Souza. I have reviewed and verified the staff [...] Vitals & Measurements T: 37 ???C(Oral) HR: 88(Peripheral) RR: 16 BP: 180/100 HT: 70 in HT: 179 cm WT: 84.5 kg WT: 186.29 lb BMI: 26.37 General Appearance: alert, no distress, well nourished, well developed male. Procedure Operative Information Anesthesia Type: Local Procedure: Local Cystoscopy Complications: None Surgical risks, benefits, details of the procedure have been explained to the patient. Full informed consent has been obtained. Intraoperative Information Prepped: Patient is brought back to the endoscopy suite. Patient is placed in supine position. Patient prepped in the usual fashion with Betadine solution. 2% Xylocaine Jelly is placed per Urethra. After waiting several minutes, the Cystoscope is introduced. The Urethra is: Normal The Prostatic Urethra is: Unobstructed The Bladder: _3 cm papillary lesion proximal to the R UO on floor, classic TCC appearing lesion. Trabeculated: Moderate (2) The Ureteral orifices: Show efflux of clear urine Specimens Removed: None Removal: Cystoscope is removed. The patient tolerated it well. Postoperative Information Patient is discharged home with antibiotic coverage. Follow up arranged. Assessment/Plan 1. Gross hematuria (R31.0: Gross hematuria) Cytol was atypical, suspicious. CT AP w/wo con 07/12/24 [facility] - 4.3 cm RSP simple cyst. No mass or stones. 1.4 cm rounded but slightly irregular fluid density within posterior R aspect of bladder adjacent to UO. Favors a ureterocele given fluid density however has irregular spiculations from its inferior margin on coronal view. Mass vs ureterocele. No wall thickening. Pt had IO cysto today wo complications. Reviewed cytology imaging with pt. 2. BPH with urinary obstruction (N40.1: Benign prostatic hyperplasia with lower urinary tract symptoms) S/p TURP 01/29/07 and evolve laser of prostate 11/24/07. No BPH meds. 3. Screening PSA (prostate specific antigen) (Z12.5: Encounter for screening for malignant neoplasm of prostate) S/p TRUS/bx 03/11/06. Last PSA 02/12/22 - 0.25. Monitored by PCP. -Can cont PSA screening with PCP 4. 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 Will schedule Cysto with TURBT. The procedure risks, benefits, details, and treatment alternatives have been discussed with the patient. These include bleeding -- sometimes to the point of hemorrhaging, infection, risk of bladder perforation, recurrence of bladder tumor in 60-70% of patients, need for indwelling catheter for a variable amount of time, as well as the rare risk of needing an open operation to repair the bladder, among others. Additional therapy as well as follow-up bladder evaluation will most likely be required. Full informed consent has been obtained. Will order General anesthesia. Follow-up With When Contact Information Lalo SOUZA MD, [facility] [address] [place] [address]- Additional Instructions: sched TURBT Patient Education Transurethral Resection of Bladder Tumor, Care After Transurethral Resection of Bladder Tumor IJackie, personally scribed for Dr. Souza on 08/11/2024 10:25:22. . Documentation recorded by the scribe, Jackie Gamez, accurately reflects the services(s) I performed and decisions made by me. Authenticated by Dr. Souza on 08/11/2024 10:26:53. 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 Medications albuterol, See Instructions Cipro 500 mg Tab, 500 mg= 1 tab(s), Oral, BID gabapentin 100 mg Cap, 100 mg= 1 cap(s) glipiZIDE 10 mg Tab, 10 mg= 1 tab(s) hydrOXYzine hydrochloride 25 mg Tab, 25 m (more content not included)... Normal [facility] Comment on above: Result Comment: Elec tronically Signed By: Lalo SOUZA MD\.br\Date and Time Signed: 08/11/24 10:26 EDT\.br\Electronically Co-Signed By: Jackie Gamez\.br\Date and Time Co-Signed: 08/11/24 10:[address] ABDOMEN PELVIS WO/W [place] 07-13-[address] [address] [address] Scan Report Signed Patient: JAM RAMIREZ Jr. MR#: [id number] : 1940 Acct:[id number] Age/Sex: 84 / M ADM Date: 07/12/24 Loc: LAB Attending Dr: Lalo Souza M.D. Ordering Physician: Lalo Souza M.D. Date of Service: 07/12/24 Procedure(s): CT abdomen pelvis wo/w con Accession Number(s): [id number] cc: Jorge Luis Malik M.D. [place] [address] Patient Name: JAM RAMIREZ MRN: [facility]:[id number] date: 1940 Sex: M Assigned Patient Location: LAB Current Patient Location: Accession/Order Number: [id number] Exam Date: 07/12/2024 14:50 Report Date: 07/13/2024 06:17 At the request of: LALO SOUZA Procedure: CT abdomen pelvis wo/w con EXAMINATION: CT abdomen pelvis wo/w con HISTORY: Gross Hematuria COMPARISON: No relevant comparison available. TECHNIQUE: Axial, Coronal, and Sagittal images were obtained without and/or with IV contrast as indicated by examination type. Dose reduction techniques were achieved by using automated exposure control and/or adjustment of mA and/or kV according to patient size and/or use of iterative reconstruction technique. FINDINGS: LUNG BASES: No visible pulmonary or pleural disease. LIVER: No enlargement, atrophy, suspicious density, or significant focal lesion. BILIARY: No dilatation or calcification. PANCREAS: No lesion, fluid collection, or abnormal duct dilatation. SPLEEN: No enlargement or focal lesion. ADRENALS: No mass or enlargement. KIDNEYS: Fluid density simple appearing 4.3 cm cyst arising from superior pole of right kidney. No mass, obstruction, or calcification. BOWEL/MESENTERY: Multiple small diverticula involving distal transverse colon through sigmoid colon; no acute inflammatory changes. No visible mass, obstruction, or bowel wall thickening. Normal appendix. AORTA/VASCULAR: Minimal saccular aneurysm of infrarenal aorta, 2.6 cm in total diameter. Mild-moderate atherosclerotic disease. RETROPERITONEUM: No mass or adenopathy. LYMPH NODES: No adenopathy. URINARY BLADDER: Within the posterior right aspect of urinary bladder adjacent the ureter insertion is a 1.4 cm rounded, but slightly irregular fluid density structure. Given its fluid density this favors a ureterocele, however, on the coronal view there appears to be irregular spiculations from its inferior margin. No bladder wall thickening or stones. PELVIC ORGANS: No visible mass. Pelvic organs appropriate for patient age. ABDOMINAL WALL: Fat filled 5.4 cm ventral hernia just inferior to the sternoxiphoid; wide neck with no strangulation. Small fat filled umbilical hernia without strangulation. BONES: Marked degenerative disc disease L1-L2 and L5-S1. No bony lesion or fracture. OTHER: Negative. CT/CT abdomen pelvis wo/w con IMPRESSION: 1. 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 Ultrasound evaluation is recommended. 2. Colonic diverticulosis. 3. Tiny saccular aneurysm of infrarenal aorta. 4. Supraumbilical and umbilical small fat filled hernias without strangulation. Electronically authenticated by: CARLOS SELF Date: 07/13/2024 06:17 Dictated By: Carlos Self M.D. Signed By: 07/13/24619 DD/ 6 TD/TT: Warehouse Helper: [facility] Radiology, Radiologist, MD - 07/13/2024 [place] [address] CT Scan Report Signed Patient: JAM RAMIREZ Jr. MR#: [id number] : 1940 Acct:[id number] Age/Sex: 84 / M ADM Date: 07/12/24 Loc: LAB Attending Dr: Lalo Souza M.D. Ordering Physician: Lalo Souza M.D. Date of Service: 07/12/24 Procedure(s): CT abdomen pelvis wo/w con Accession Number(s): [id number] cc: Jorge Luis Malik M.D. [place] [address] Patient Name: JAM RAMIREZ MRN: [facility]:[id number] date: 1940 Sex: M Assigned Patient Location: LAB Current Patient Location: Accession/Order Number: [id number] Exam Date: 07/12/2024 14:50 Report Date: 07/13/2024 06:17 At the request of: LALO SOUZA Procedure: CT abdomen pelvis wo/w con EXAMINATION: CT abdomen pelvis wo/w con HISTORY: Gross Hematuria COMPARISON: No relevant comparison available. TECHNIQUE: Axial, Coronal, and Sagittal images were obtained without and/or with IV contrast as indicated by examination type. Dose reduction techniques were achieved by using automated exposure control and/or adjustment of mA and/or kV according to patient size and/or use of iterative reconstruction technique. FINDINGS: LUNG BASES: No visible pulmonary or pleural disease. LIVER: No enlargement, atrophy, suspicious density, or significant focal lesion. BILIARY: No dilatation or calcification. PANCREAS: No lesion, fluid collection, or abnormal duct dilatation. SPLEEN: No enlargement or focal lesion. ADRENALS: No mass or enlargement. KIDNEYS: Fluid density simple appearing 4.3 cm cyst arising from superior pole of right kidney. No mass, obstruction, or calcification. BOWEL/MESENTERY: Multiple small diverticula involving distal transverse colon through sigmoid colon; no acute inflammatory changes. No visible mass, obstruction, or bowel wall thickening. Normal appendix. AORTA/VASCULAR: Minimal saccular aneurysm of infrarenal aorta, 2.6 cm in total diameter. Mild-moderate atherosclerotic disease. RETROPERITONEUM: No mass or adenopathy. LYMPH NODES: No adenopathy. URINARY BLADDER: Within the posterior right aspect of urinary bladder adjacent the ureter insertion is a 1.4 cm rounded, but slightly irregular fluid density structure. Given its fluid density this favors a ureterocele, however, on the coronal view there appears to be irregular spiculations from its inferior margin. No bladder wall thickening or stones. PELVIC ORGANS: No visible mass. Pelvic organs appropriate for patient age. ABDOMINAL WALL: Fat filled 5.4 cm ventral hernia just inferior to the sternoxiphoid; wide neck with no strangulation. Small fat filled umbilical hernia without strangulation. BONES: Marked degenerative disc disease L1-L2 and L5-S1. No bony lesion or fracture. OTHER: Negative. CT/CT abdomen pelvis wo/w con IMPRESSION: 1. 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 Ultrasound evaluation is recommended. 2. Colonic diverticulosis. 3. Tiny saccular aneurysm of infrarenal aorta. 4. Supraumbilical and umbilical small fat filled hernias without strangulation. Electronically authenticated by: CARLOS SELF Date: 07/13/2024 06:17 Dictated By: Carlos Self M.D. Signed By: 07/13/24619 DD/ 0617 TD/TT: Warehouse Helper: [facility] Radiology Study observation (narrative) [facility] CT ABDOMEN PELVIS WO/W [place] dered By: Radiologist Radiology on 07-13-2024 [facility] Work Phone: [facility] CREATININEon 07-12-2024 Creatinine [Mass/Vol] 1.53 mg/dL High 0.70 - 1.30 mg/dL [facility] GFR/1.73 sq M.predicted CKD-EPI (S/P/Bld) [Vol rate/Area] 53 Low >=60 mL/min/1.73m 2 [facility] Interpretation and review of laboratory results Abnormal [facility] EGFR-NON AF BARBADIAN 44 Low >=60 mL/min/1.73m 2 [facility] Urine Cytology ([facility])on 0 07-09-2024 Microscopic exam Cytology (U) [Interp] Diagnosis Info Invalid Interpretation Code [facility] Comment on above: Result Comment: A:Ur ine,Urine:Voided Interpretation - 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 Clinical correlation and tissue confirmation is recommended as clinically indicated. CPT 48816 MicroScopic Description - Adequacy - Gross Description Site ID:A color Yellow fixative Alcohol Specimen designated Urine received in alcohol preservative and labeled with the patient???s name, consists of 40ml clear yellow fluid. Electronically signed by : on: 07/09/2024 09:49:35 Performed By: #### 1 [id number] ####[facility] [address] [place] [address] Ambulatory Visit Summaryon 0 07-05-2024 Ambulatory Visit Summary Ambulatory Visit Summary JAM RAMIREZ JR :1940 Visit Date:07/05/2024 Ambulatory Visit Instructions Your Diagnosis Gross hematuria BPH with urinary obstruction Screening PSA (prostate specific antigen) Tests Performed CT Urogram -- Results Pending -- Please visit your patient portal for your results or contact your primary care physician. Your Care Team Attending Physician - LIBBY QUINTANA, Lalo Mclain Primary Care Physician - JORGE LUIS MALIK [...] Following Appointments Follow Up with LIBBY QUINTANA, DANIELA Alba When: Where: [facility] [address], [place] [phone] Medications What How Much When Instructions New ciprofloxacin (Cipro 500 mg Tab) 1 Tablets By Mouth Every day take one tab day before procedure and one tab after procedure Pickup at [facility]/pharmacy #[id number] Unchanged acetaminophen (Tylenol) 500 Milligram [...] physician if questions or concerns Pharmacy Information [facility]/pharmacy #[id number]: [address] [place], [place] [phone] Allergies codeine (Lightheadedness) Problems Ongoing - Any [...] including vitamins, herbs, eye drops, creams, and wapi-rxi-qhyczgn medicines. ??? Any problems you or family [...] taking di (more content not included)... Normal [facility] Urine Cytology ([facility])on 0 07-05-2024 Method of Extraction Voided Normal [facility] Comment on above: Performed By: #### 1 [id number] ####[facility] [address] [place] [address] Number of Jars 1 Invalid Interpretation Code [facility] Comment on above: Performed By: #### 1 [id number] ####[facility] [address] [place] [address] UC Specimen Urine Normal [facility] Comment on above: Performed By: #### 1 [id number] ####[facility] [address] [place] [address] Type of Service Technical Only Normal Fi [facility] Comment on above: Performed By: #### 1 [id number] ####[facility] [address] [place] [address] [facility] UA (CLEAN/CATCH) MICROSC OPIC IF INDICATEon 06-24-2024 BILIRUBIN URINE Negative NEGATIVE [facility] BLOOD URINE LARGE Abnormal NEGATIVE [facility] Clarity (U) CLEAR CLEAR [facility] Color (U) LT. YELLOW YELLOW [facility] GLUCOSE URINE UA Negative NEGATIVE mg/dL [facility] Interpretation and review of laboratory results Abnormal [facility] Ketones Ql (U) Negative NEGATIVE mg/dL [facility] Leukocyte esterase Test strip Ql (U) Negative NEGATIVE [facility] NITRITE URINE Negative NEGATIVE [facility] pH (U) 5.5 [pH] 5.0 - 9.0 [facility] PROTEIN URINE Negative NEG/TRACE mg/dL [facility] SPECIFIC GRAVITY URINE 1.020 1.005 - 1.025 [facility] URINE MICROSCOPIC INDICATED YES [facility] UROBILINOGEN URINE 0.2 EU/dL 0.2 - 1.0 EU/dL [facility] ALL CBC WITH AUTO DIFFon BASOPHILS ABSOLUTE AUTO 0.1 [facility] Basophils/100 WBC (Bld) 1.1 % 0.2 - 2.0 % [facility] Eosinophils/100 WBC (Bld) 7.2 % High 0.9 - 7.0 % [facility] Erythrocyte distribution width (RBC) [Ratio] 12.8 % 11.0 - 15.0 % [facility] Hematocrit (Bld) [Volume fraction] 36.3 % Low 42.0 - 54.0 % [facility] Hemoglobin (Bld) [Mass/Vol] 12.3 g/dL Low 14.0 - 18.0 g/dL [facility] IMMATURE GRANULOCYTES ABS AUTO 0.04 High [facility] Immature granulocytes/100 WBC (Bld) 0.4 % 0.0 - 0.5 % [facility] Interpretation and review of laboratory results Abnormal [facility] LYMPHOCYTES ABSOLUTE AUTO 1.8 [facility] Lymphocytes/100 WBC (Bld) 18.7 % Low 20.5 - 60.0 % [facility] MCH (RBC) [Entitic mass] 30.8 pg 25.9 - 34.0 pg [facility] MCHC (RBC) [Mass/Vol] 33.9 g/dL 29.9 - 35.2 g/dL [facility] MCV (RBC) [Entitic vol] 90.8 fL 80.0 - 94.0 fL [facility] MONOCYTES ABSOLUTE AUTO 0.7 [facility] Monocytes/100 WBC (Bld) 7.5 % 1.7 - 12.0 % [facility] NEUTROPHILS ABSOLUTE AUTO 6.1 [facility] Neutrophils/100 WBC (Bld) 65.1 % 43.0 - 75.0 % [facility] Platelet mean volume (Bld) [Entitic vol] 9.5 fL 9.5 - 13.5 fL [facility] TBH EO # 0.7 [facility] TB PLT 419 [facility] RBC 4 Low [facility] WBC 9.4 [facility] MLR HEMOGLOBIN A1Con 024 Glucose [Mass/Vol] 148 mg/dL [facility] HbA1c (Bld) [Mass fraction] 6.8 % High 4.5 - 6.2 % [facility] Comment on above: ADA RECOMMENDED LIMI T 4.0 - 6.0 ADA THERAPEUTIC TARGET < 7.0 ACTION SUGGESTED > 7.0 Interpretation and review of laboratory results Abnormal [facility] GLYCOHEMOGLOBIN A1Con 2022 ADA RECOMMENDATION SEE BELOW Normal [facility] Comment on above: Result Comment: ADA RECOMMENDED LIMIT 4.0 - 6.0 ADA THERAPEUTIC TARGET < 7.0 ACTION SUGGESTED > 7.0 Performed By: #### A 1C #### [facility] [address] [place] [address] [address] Sulema Blair Glucose [Mass/Vol] 160 mg/dL Normal [facility] Comment on above: Performed By: #### A 1C #### [facility] [address] [place], [place] [address] Dr. Sulema Blair HbA1c (Bld) [Mass fraction] 7.2 % Critically high 4.5-6.2 [facility] Comment on above: Performed By: #### A 1C #### [facility] [address] [place] [address] Dr. Sulema Blair MICROALBUMIN URINEon 022 Albumin, Urine 11.1 ug/mL Normal Not Estab. [facility] Comment on above: Performed By: #### M ALBLC #### [facility] [address] [place] [address] Dr. Sulema Blair CBC AUTO DIFFon 02-12-2022 BASO # 0.1 103/ul Normal 0.0-0.1 [facility] Comment on above: Performed By: #### C BC #### [facility] [address] [place] [address] Dr. Sulema Blair Basophils/100 WBC (Bld) 0.7 % Normal 0.2-2.0 [facility] Comment on above: Performed By: #### C BC #### [facility] [address] [place] [address] Dr. Sulema Blair EO # 0.4 103/ul Normal 0.0-0.7 [facility] Comment on above: Performed By: #### C BC #### [facility] [address] [place] [address] Dr. Sulema Blair Eosinophils/100 WBC (Bld) 3.7 % Normal 0.9-7.0 [facility] Comment on above: Performed By: #### C BC #### [facility] [address] [place] [address] Dr. Sulema Blair Erythrocyte distribution width (RBC) [Ratio] 13.0 % Normal 11.0-15.[address] [facility] Comment on above: Performed By: #### C BC #### [facility] [address] [place] [address] Dr. Sulema Blair Hematocrit (Bld) [Volume fraction] 37.7 % Critically low 42.0-54.0 [facility] Comment on above: Performed By: #### C BC #### [facility] [address] [place] [address] Dr. Sulema Blair Hemoglobin (Bld) [Mass/Vol] 12.4 g/dL Critically low 14.0-18.0 [facility] Comment on above: Performed By: #### C BC #### [facility] [address] [place] [address] Dr. Sulema Blair IG # 0.03 10e3/ul Normal 0.00-0.03 [facility] Comment on above: Performed By: #### C BC #### [facility] [address] [place] [address] Dr. Sulema Blair IG % 0.3 % Normal 0.0-0.5 [facility] Comment on above: Performed By: #### C BC #### [facility] [address] [place] [address] Dr. Sulema Blair LYMPH # 1.3 103/ul Normal 1.2-3.8 [facility] Comment on above: Performed By: #### C BC #### [facility] [address] [place] [address] Dr. Sulema Blair Lymphocytes/100 WBC (Bld) 13.7 % Critically low 20.5-60.0 [facility] Comment on above: Performed By: #### C BC #### [facility] [address] [place] [address] Dr. Sulema Blair MANUAL DIFF REQ NO Normal [facility] Comment on above: Performed By: #### C BC #### [facility] [address] [place] [address] Dr. Sulema Blair MCH (RBC) [Entitic mass] 30.5 pg Normal 25.9-34.0 [facility] Comment on above: Performed By: #### C BC #### [facility] [address] [place] [address] Dr. Sulema Blair MCHC (RBC) [Mass/Vol] 32.9 g/dL Normal 29.9-35.2 [facility] Comment on above: Performed By: #### C BC #### [facility] [address] [place] [address] Dr. Sulema Blair MCV (RBC) [Entitic vol] 92.9 fL Normal 80.0-94.0 [facility] Comment on above: Performed By: #### C BC #### [facility] [address] [place] [address] Dr. Sulema Blair MONO # 0.9 103/ul Critically high 0.3-0.8 [facility] Comment on above: Performed By: #### C BC #### [facility] [address] [place] [address] Dr. Sulema Blair Monocytes/100 WBC (Bld) 9.7 % Normal 1.7-12.0 [facility] Comment on above: Performed By: #### C BC #### [facility] [address] [place] [address] Dr. Sulema Blair NEUT # 6.9 103/ul Critically high 1.4-6.5 [facility] Comment on above: Performed By: #### C BC #### [facility] [address] [place] [address] Dr. Sulema Blair Neutrophils/100 WBC (Bld) 71.9 % Normal 43.0-75.0 [facility] Comment on above: Performed By: #### C BC #### [facility] [address] [place] [address] Dr. Sulema Blair Platelet mean volume (Bld) [Entitic vol] 10.7 fL Normal 9.5-13.5 [facility] Comment on above: Performed By: #### C BC #### [facility] [address] [place] [address] Dr. Sulema Blair PLT 313 103/ul Normal 150-[address] [facility] Comment on above: Performed By: #### C BC #### [facility] [address] [place], [place] [id number] Dr. Sulema Blair RBC 4.06 106/ul Critically low 4.70-6.10 [facility] Comment on above: Performed By: #### C BC #### [facility] [address] [place] [address] Dr. Sulema Blair WBC 9.6 103/ul Normal 4.0-11.[address] [facility] Comment on above: Performed By: #### C BC #### [facility] [address] [address] [address] Sulema Blair GLYCOHEMOGLOBIN A1Con 2021 ADA RECOMMENDATION SEE BELOW Normal [facility] Comment on above: Result Comment: ADA RECOMMENDED LIMIT 4.0 - 6.0 ADA THERAPEUTIC TARGET < 7.0 ACTION SUGGESTED > 7.0 Performed By: #### A 1C #### [facility] [address] [address] [address] Sulema Blair Glucose [Mass/Vol] 157 mg/dL Normal [facility] Comment on above: Performed By: #### A 1C #### [facility] [address] [place] [address] Dr. Sulema Blair HbA1c (Bld) [Mass fraction] 7.1 % Critically high 4.5-6.2 [facility] Comment on above: Performed By: #### A 1C #### [facility] [address] [place] [address] Dr. Sulema Blair LIPID PROFILEon 02-12-2022 CHOL-HDL RATIO NORM SEE BELOW Normal [facility] Comment on above: Result Comment: 3.3 - 4.4 LOW RISK 4.4 - 7.1 AVERAGE RISK 7.1 - 11.0 MODERATE RISK >11.0 HIGH RISK Performed By: #### L MICHELLE NIETO, LIPID #### [facility] [address] [place] [address] Dr. Sulema Blair Cholesterol [Mass/Vol] 238 mg/dL Critically high <=200 [facility] Comment on above: Performed By: #### L MICHELLE NIETO, LIPID #### [facility] [address] [place] [address] Dr. Sulema Blair Cholesterol in HDL [Mass/Vol] 45 mg/dL Normal 40-60 [facility] Comment on above: Performed By: #### L MICHELLE NIETO, LIPID #### [facility] [address] [address] [address] Sulema Blair Cholesterol in LDL [Mass/Vol] 141.4 mg/dL Normal [facility] Comment on above: Performed By: #### L IVER, BMP, LIPID #### [facility] [address] [address] [address] Sulema Blair Cholesterol.total/Cho lesterol in HDL [Mass ratio] 5.3 {ratio} Normal [facility] Comment on above: Performed By: #### L IVANNABELLA BMP, LIPID #### [facility] [address] [address] [address] Sulema Blair HDL NORMAL > or = 60 mg/dl - LOW CARDIOVASCULAR RISK <40 mg/dl - HIGH CARDIOVASCULAR RISK Normal [facility] Comment on above: Performed By: #### L IVANNABELLA BMP, LIPID #### [facility] [address] [address] [address] Sulema Blair LDL CALC NORMAL SEE BELOW Normal [facility] Comment on above: Result Comment: <100 mg/dl OPTIMAL 100 - 129 mg/dl NEAR OR ABOVE OPTIMAL 130 - 159 mg/dl BORDERLINE HIGH 160 - 189 mg/dl HIGH >190 mg/dl VERY HIGH Performed By: #### L IVANNABELLA BMP, LIPID #### [facility] [address] [address] [address] Sulema Blair Triglyceride [Mass/Vol] 258 mg/dL Critically high <=150 [facility] Comment on above: Performed By: #### L IVANNABELLA BMP, LIPID #### [facility] [address] [place] [address] Dr. Sulema Blair VLDL CALC 51.6 mg/dL Normal [facility] Comment on above: Performed By: #### L IVANNABELLA BMP, LIPID #### [facility] [address] [address] [address] Sulema Blair LIVER PROFILEon 02-12-2022 Albumin [Mass/Vol] 3.4 g/dL Normal 3.4-5.0 [facility] Comment on above: Performed By: #### L IVANNABELLA BMP, LIPID #### [facility] [address] [address] [address] Sulema Blair Albumin/Globulin [Mass ratio] 0.9 {ratio} Normal [facility] Comment on above: Performed By: #### L IVANNABELLA, BMP, LIPID #### [facility] [address] [address] [address] Sulema Blair ALP [Catalytic activity/Vol] 78 U/L Normal 46-116 [facility] Comment on above: Performed By: #### L IVER, BMP, LIPID #### [facility] [address] [address] [address] Sulema Blair ALT [Catalytic activity/Vol] 27 U/L Normal 16-63 [facility] Comment on above: Performed By: #### L IVER, BMP, LIPID #### [facility] [address] [address] [address] Sulema Blair AST [Catalytic activity/Vol] 24 U/L Normal 15-37 [facility] Comment on above: Performed By: #### L IVER, BMP, LIPID #### [facility] [address] [place] [address] Dr. Sulema Blair BILI, CONJUGATED 0.1 mg/dL Normal 0.0-0.2 [facility] Comment on above: Performed By: #### L IVER, BMP, LIPID #### [facility] [address] [address] [address] Sulema Blair Bilirubin [Mass/Vol] 0.5 mg/dL Normal 0.2-1.0 [facility] Comment on above: Performed By: #### L IVER, BMP, LIPID #### [facility] [address] [address] [address] Sulema Blair Globulin (S) [Mass/Vol] 3.6 g/dL Normal [facility] Comment on above: Performed By: #### L IVER, BMP, LIPID #### [facility] [address] [address] [address] Sulema Blair Protein [Mass/Vol] 7.0 g/dL Normal 6.4-8.2 [facility] Comment on above: Performed By: #### L IVER, BMP, LIPID #### [facility] [address] [address] [address] Sulema Blair PROF CHEM 8 (BAS METB)on Anion gap [Moles/Vol] 12.5 mmol/L Normal [facility] Comment on above: Performed By: #### L IVANNABELLA BMP, LIPID #### [facility] [address] [address] [address] Sulema Blair Calcium [Mass/Vol] 9.4 mg/dL Normal 8.5-10.1 [facility] Comment on above: Performed By: #### L IVER, BMP, LIPID #### [facility] [address] [address] [address] Sulema Blair Chloride [Moles/Vol] 104 mmol/L Normal 98-107 [facility] Comment on above: Performed By: #### L IVANNABELLA BMP, LIPID #### [facility] [address] [place] [address] Dr. Sulema Blair CO2 [Moles/Vol] 30.5 mmol/L Normal 21.0-32.0 [facility] Comment on above: Performed By: #### L IVANNABELLA BMP, LIPID #### [facility] [address] [address] [address] Sulema Blair Creatinine [Mass/Vol] 1.46 mg/dL Critically high 0.70-1.30 [facility] Comment on above: Performed By: #### L IVANNABELLA BMP, LIPID #### [facility] [address] [place] [address] Dr. Sulema Blair EGFR-AF BARBADIAN 56 mL/min/1.73m2 Critically low >=60 [facility] Comment on above: Performed By: #### L IVER, BMP, LIPID #### [facility] [address] [place] [address] Dr. Sulema Blair EGFR-NON AF BARBADIAN 47 mL/min/1.73m2 Critically low >=60 [facility] Comment on above: Performed By: #### L IVER, BMP, LIPID #### [facility] [address] [address] [address] Sulema Blair Glucose [Mass/Vol] 159 mg/dL Critically high 74-106 [facility] Comment on above: Performed By: #### L IVANNABELLA, BMP, LIPID #### [facility] [address] [address] [address] Sulema Blair Potassium [Moles/Vol] 4.0 mmol/L Normal 3.5-5.1 [facility] Comment on above: Performed By: #### L IVER, BMP, LIPID #### [facility] [address] [address] [address] Sulema Blair Sodium [Moles/Vol] 143 mmol/L Normal 136-145 [facility] Comment on above: Performed By: #### L IVER, BMP, LIPID #### [facility] [address] [address] [address] Sulema Blair Urea nitrogen [Mass/Vol] 16.0 mg/dL Normal 7.0-18.0 [facility] Comment on above: Performed By: #### L IVER, BMP, LIPID #### [facility] [address] [address] [address] Sulema Blair Urea nitrogen/Creatinine [Mass ratio] 11.0 mg/mg Normal [facility] Comment on above: Performed By: #### L IVER, BMP, LIPID #### [facility] [address] [place] [address] Dr. Sulema Blair Vital Signs Date Time Vital Sign Value Performing Clinician Odilia chase 02-16-2025 13:04-0400 Body height 177.8 cm Jorge Luis Malik MD Work Phone: [facility] 02-16-2025 13:04-0400 Body mass index (BMI) [Ratio] 25 kg/m2 Jorge Luis Malik MD Work Phone: [facility] 02-16-2025 13:04-0400 Body weight 78.92 kg Jorge Luis Malik MD Work Phone: [facility] 02-16-2025 13:04-0400 Diastolic blood pressure 80 mm[Hg] Jorge Luis Malik MD Work Phone: [facility] 02-16-2025 13:04-0400 Heart rate 66 /min Jorge Luis Malik MD Work Phone: [facility] 02-16-2025 13:04-0400 Respiratory rate 18 /min Jorge Luis Malik MD Work Phone: [facility] 02-16-2025 13:04-0400 SaO2% (BldA) [Mass fraction] 95 % Jorge Luis Malik MD Work Phone: [facility] 02-16-2025 13:04-0400 Systolic blood pressure 120 mm[Hg] Jorge Luis Malik MD Work Phone: [facility] 01-04-2025 13:44-0400 Body height 177.8 cm Jorge Luis Malik MD Work Phone: [facility] 01-04-2025 13:44-0400 Body mass index (BMI) [Ratio] 24.82 kg/m2 Jorge Luis Malik MD Work Phone: [facility] 01-04-2025 13:44-0400 Body temperature 97.11 [degF] Jorge Luis Malik MD Work Phone: [facility] 01-04-2025 13:44-0400 Body weight 78.47 kg Jorge Luis Malik MD Work Phone: [facility] 01-04-2025 13:44-0400 Diastolic blood pressure 78 mm[Hg] Jorge Luis Malik MD Work Phone: [facility] 01-04-2025 13:44-0400 Heart rate 80 /min Jorge Luis Malik MD Work Phone: [facility] 01-04-2025 13:44-0400 Respiratory rate 20 /min Jorge Luis Malik MD Work Phone: [facility] 01-04-2025 13:44-0400 SaO2% (BldA) [Mass fraction] 98 % Jorge Luis Malik MD Work Phone: [facility] 01-04-2025 13:44-0400 Systolic blood pressure 126 mm[Hg] Jorge Luis Malik MD Work Phone: [facility] 10-28-2024 14:21-0400 Body mass index (BMI) [Ratio] 25.57 kg/m2 Layla Rodriguez [employer] Work Phone: [facility] 10-28-2024 14:21-0400 Body weight 80.83 kg Layla Rodriguez [employer] Work Phone: [facility] 10-28-2024 14:21-0400 Diastolic blood pressure 78 mm[Hg] Layla Rodriguez [employer] Work Phone: [facility] 10-28-2024 14:21-0400 Heart rate 57 /min Layla Rodriguez [employer] Work Phone: [facility] 10-28-2024 14:21-0400 SaO2% (BldA) [Mass fraction] 98 % Layla Rodriguez [employer] Work Phone: [facility] 10-28-2024 14:21-0400 Systolic blood pressure 132 mm[Hg] Layla Rodriguez [employer] Work Phone: [facility] 10-18-2024 13:49-0400 Diastolic blood pressure 90 mm[Hg] KIMI RADHA [facility] 10-18-2024 13:49-0400 Mean blood pressure 117 mm[Hg] KIMI RADHA [facility] 10-18-2024 13:49-0400 Systolic blood pressure 170 mm[Hg] KIMI RADHA [facility] 10-18-2024 13:45-0400 Blood Pressure Location KIMI RADHA [facility] 10-18-2024 13:45-0400 Body temperature 98.6 [degF] KIMI RADHA [facility] 10-18-2024 13:45-0400 Diastolic blood pressure 94 mm[Hg] KIMI RADHA [facility] 10-18-2024 13:45-0400 Heart rate 94 /min KIMI RADHA [facility] 10-18-2024 13:45-0400 Respiratory rate 18 /min KIMI RADHA [facility] 10-18-2024 13:45-0400 Systolic blood pressure 177 mm[Hg] KIMI RADHA [facility] 10-11-2024 13:10-0400 Blood Pressure Location KIMI RADHA [facility] 10-11-2024 13:10-0400 Body temperature 98.6 [degF] KIMI RADHA [facility] 10-11-2024 13:10-0400 Diastolic blood pressure 72 mm[Hg] KIMI RADHA [facility] 10-11-2024 13:10-0400 Heart rate 68 /min KIMI RADHA [facility] 10-11-2024 13:10-0400 Respiratory rate 16 /min KIMI RADHA [facility] 10-11-2024 13:10-0400 Systolic blood pressure 133 mm[Hg] KIMI RADHA [facility] 07-28-2024 14:55-0500 Body mass index (BMI) [Ratio] 27.55 kg/m2 Layla Rodriguez [employer] Work Phone: [facility] 07-28-2024 14:55-0500 Body weight 87.09 kg Layla Rodriguez [employer] Work Phone: [facility] 07-28-2024 14:55-0500 Diastolic blood pressure 98 mm[Hg] Layla Rodriguez [employer] Work Phone: [facility] 07-28-2024 14:55-0500 Heart rate 78 /min Layla Rodriguez [employer] Work Phone: [facility] 07-28-2024 14:55-0500 SaO2% (BldA) [Mass fraction] 100 % Layla Rodriguez [employer] Work Phone: [facility] 07-28-2024 14:55-0500 Systolic blood pressure 152 mm[Hg] Layla Rodriguez [employer] Work Phone: [facility] 07-07-2024 13:41-0500 Body height 177.8 cm Jorge Luis Malik MD Work Phone: [facility] 07-07-2024 13:41-0500 Body mass index (BMI) [Ratio] 27.26 kg/m2 Jorge Luis Malik MD Work Phone: [facility] 07-07-2024 13:41-0500 Body temperature 97.11 [degF] Jorge Luis Malik MD Work Phone: [facility] 07-07-2024 13:41-0500 Body weight 86.18 kg Jorge Luis Malik MD Work Phone: [facility] 07-07-2024 13:41-0500 Diastolic blood pressure 68 mm[Hg] Jorge Luis Malik MD Work Phone: [facility] 07-07-2024 13:41-0500 Heart rate 80 /min Jorge Luis Malik MD Work Phone: [facility] 07-07-2024 13:41-0500 Respiratory rate 22 /min Jorge Luis Malik MD Work Phone: [facility] 07-07-2024 13:41-0500 SaO2% (BldA) [Mass fraction] 99 % Jorge Luis Malik MD Work Phone: [facility] 07-07-2024 13:41-0500 Systolic blood pressure 126 mm[Hg] Jorge Luis Malik MD Work Phone: [facility] 07-05-2024 09:03-0500 Blood Pressure Location Lalo SOUZA [facility] 07-05-2024 09:03-0500 Body temperature 98.6 [degF] Lalo SOUZA [facility] 07-05-2024 09:03-0500 Diastolic blood pressure 96 mm[Hg] Lalo SOUZA [facility] 07-05-2024 09:03-0500 Heart rate 86 /min Lalo SOUZA [facility] 07-05-2024 09:03-0500 Respiratory rate 18 /min Lalo SOUZA [facility] 07-05-2024 09:03-0500 Systolic blood pressure 124 mm[Hg] Lalo SOUZA [facility] 06-23-2024 13:27-0500 Body mass index (BMI) [Ratio] 27.12 kg/m2 Roberto Meena DO Work Phone: [facility] 06-23-2024 13:27-0500 Body weight 85.73 kg Roberto Robledo DO Work Phone: [facility] 06-23-2024 13:27-0500 Diastolic blood pressure 88 mm[Hg] Roberto Robledo DO Work Phone: [facility] 06-23-2024 13:27-0500 Heart rate 94 /min Roberto Robledo DO Work Phone: [facility] 06-23-2024 13:27-0500 SaO2% (BldA) [Mass fraction] 98 % Roberto Robledo DO Work Phone: [facility] 06-23-2024 13:27-0500 Systolic blood pressure 150 mm[Hg] Williamdanielle Robledo DO Work Phone: [facility] 06-14-2024 13:17-0500 Body height 177.8 cm Jorge Luis Malik MD Work Phone: [facility] 06-14-2024 13:17-0500 Body mass index (BMI) [Ratio] 27.12 kg/m2 Jorge Luis Malik MD Work Phone: [facility] 06-14-2024 13:17-0500 Body temperature 97.11 [degF] Jorge Luis Malik MD Work Phone: [facility] 06-14-2024 13:17-0500 Body weight 85.73 kg Jorge Luis Malik MD Work Phone: [facility] 06-14-2024 13:17-0500 Diastolic blood pressure 68 mm[Hg] Jorge Luis Malik MD Work Phone: [facility] 06-14-2024 13:17-0500 Heart rate 97 /min Jorge Luis Malik MD Work Phone: [facility] 06-14-2024 13:17-0500 Respiratory rate 20 /min Jorge Luis Malik MD Work Phone: [facility] 06-14-2024 13:17-0500 SaO2% (BldA) [Mass fraction] 99 % Jorge Luis Malik MD Work Phone: [facility] 06-14-2024 13:17-0500 Systolic blood pressure 136 mm[Hg] Jorge Luis Malik MD Work Phone: [facility] 05-17-2024 10:31-0500 Body height 177.8 cm Jorge Luis Malik MD Work Phone: [facility] 12-16-2024 10:31-0500 Body mass index (BMI) [Ratio] 26.83 kg/m2 Jorge Luis Malik MD Work Phone: [facility] 05-17-2024 10:31-0500 Body temperature 97.3 [degF] Jorge Luis Malik MD Work Phone: [facility] 05-17-2024 10:31-0500 Body weight 84.82 kg Jorge Luis Malik MD Work Phone: [facility] 05-17-2024 10:31-0500 Diastolic blood pressure 68 mm[Hg] Jorge Luis Malik MD Work Phone: [facility] 05-17-2024 10:31-0500 Heart rate 104 /min Jorge Luis Malik MD Work Phone: [facility] 05-17-2024 10:31-0500 Respiratory rate 18 /min Jorge Luis Malik MD Work Phone: [facility] 05-17-2024 10:31-0500 SaO2% (BldA) [Mass fraction] 98 % Jorge Luis Malik MD Work Phone: [facility] 05-17-2024 10:31-0500 Systolic blood pressure 118 mm[Hg] Jorge Luis Malik MD Work Phone: [facility] Healthcare Encounters Encounter Date Encounter Type Care Provider Facility Start: 03-21-2025 ambulatory Lalo Morales ty:[facility] Start: 02-17-2025 End: 02-17-2025 ambulatory Jorge Luis Malik MD Work Phone: [facility] Work Phone: Start: 02-17-2025 End: 02-17-2025 Patient encounter procedure Layla Rodriguez ENDS DOWN CHECKER-[facility] Work Phone: Start: 02-16-2025 End: 02-16-2025 ambulatory Shannan Jose Facility:[facility] Start: 02-16-2025 End: 02-16-2025 Patient encounter procedure Shannan Jose [facility] Start: 02-09-2025 End: 02-09-2025 ambulatory Shannan Jose Facility:[facility] Start: 02-09-2025 End: 02-09-2025 Patient encounter procedure Shannan Jose [facility] Start: 02-02-2025 End: 02-02-2025 ambulatory Shannan Jose Facility:[facility] Start: 02-02-2025 End: 02-02-2025 Patient encounter procedure Shannan Jose [facility] Start: 02-01-2025 Non-patient / Non-visit Jorge Luis Malik MD -[facility] Work Phone: Start: 01-25-2025 Non-patient / Non-visit Angelina Wynne [facility] Work Phone: Start: 01-04-2025 End: 01-04-2025 Bamboo flowsherbie Malik MD Work Phone: [facility] Start: 01-04-2025 End: 01-04-2025 Rj flowsherbie Malik MD Work Phone: [facility] Start: 01-04-2025 End: 01-04-2025 Office outpatient visit 25 minutes Jorge Luis Malik MD Work Phone: [facility] Comment on above: Type 2 diabetes abdoul itus with hyperglycemia, without long-term current use of insulin (HCC) (Primary Dx); Benign essential hypertension ; Chronic obstructive pulmonary disease, unspecified COPD type (HCC); Generalized anxiety disorder ; Lumbar spondylosis; Post herpetic neuralgia ; Urothelial carcinoma of bladder (HCC) Start: 12-27-2024 End: 12-27-2024 ambulatory Lalo SOUZA Facility:[facility] Start: 12-27-2024 End: 12-27-2024 ambulatory Lalo R LIBBY Facility:[facility] Start: 12-27-2024 End: 12-27-2024 Patient encounter procedure Lalo Mclain LIBBY [facility] Start: 12-14-2024 End: 12-14-2024 ambulatory AB [facility] Start: 11-22-2024 ambulatory KIMI E RADHA Facili ty:[facility] Start: 11-15-2024 End: 11-15-2024 ambulatory KIMI E RADHA Facility:[facility] Start: 11-15-2024 End: 11-15-2024 Patient encounter procedure KIMI E RADHA [facility] Start: 11-08-2024 End: 11-08-2024 ambulatory KIMI E RADHA Facility:[facility] Start: 11-08-2024 End: 11-08-2024 Patient encounter procedure KIMI E RADHA [facility] Start: 11-01-2024 End: 11-01-2024 ambulatory KIMI E RADHA Facility:[facility] Start: 11-01-2024 End: 11-01-2024 Patient encounter procedure KIMI E RADHA [facility] Start: 10-28-2024 End: 10-28-2024 Office outpatient visit 15 minutes Layla Rodriguez [employer] Work Phone: [facility] Comment on above: Post herpetic neural kevyn (CMS/HCC) (Primary Dx) Start: 10-28-2024 End: 10-28-2024 ambulatory LAYLA RODRIGUEZ Not Available Start: 10-28-2024 End: 10-28-2024 Bamboo flowsheet Layla Rodriguez [employer] Work Phone: [facility] Start: 10-28-2024 End: 10-28-2024 Bamboo flowsheet Layla Rodriguez [employer] Work Phone: [facility] Start: 10-26-2024 End: 10-26-2024 ambulatory KIMI Viry RADHA Facility:[facility] Start: 10-26-2024 End: 10-26-2024 Patient encounter procedure KIMI Viry ZUNIGARY [facility] Start: 10-18-2024 End: 10-18-2024 ambulatory KIMI Viry RADHA Facility:[facility] Start: 10-18-2024 End: 10-18-2024 Patient encounter procedure KIMI E RADHA [facility] Start: 10-11-2024 End: 10-11-2024 ambulatory KIMI Viry RADHA Facility:[facility] Start: 10-11-2024 End: 10-11-2024 Patient encounter procedure KIMI E RADHA [facility] Start: 10-11-2024 ambulatory Lalo LIBBY Facility :[facility] Start: 09-28-2024 End: 09-28-2024 ambulatory AB [facility] Start: 09-27-2024 End: 09-27-2024 Clinisync Result Encounter Generic External Data Provider [facility] External [facility] Unsolicited Start: 09-27-2024 End: 09-27-2024 Clinisync Result Encounter Generic External Data Provider [facility] External Department Unsolicited Start: 09-09-2024 End: 09-09-2024 Clinisync Result Encounter Generic External Data Provider [facility] External Department Unsolicited Start: 09-09-2024 End: 09-09-2024 Clinisync Result Encounter Generic External Data Provider [facility] External Department Unsolicited Start: 09-06-2024 End: 09-06-2024 ambulatory Lalo SOUZA Facility:[facility] Start: 09-02-2024 End: 09-02-2024 ambulatory Lalo SOUZA Facility:[facility] Start: 08-26-2024 End: 08-26-2024 ambulatory Lalo Souza [facility] Work Phone: Start: 08-26-2024 End: 08-26-2024 Departed Referred Lalo Souza MD Work Phone: [facility] Start: 08-25-2024 End: 08-26-2024 ambulatory Lalo SOUZA Facility:[id number] Start: 08-23-2024 End: 08-23-2024 ambulatory [facility] Start: 08-23-2024 End: 08-23-2024 Encounter for other preprocedural examination [facility] Start: 08-19-2024 ambulatory Lalo SOUZA Facili ty:[id number] Start: 08-11-2024 End: 08-11-2024 ambulatory Lalo SOUZA Facility:[facility] Start: 07-28-2024 End: 07-28-2024 Office outpatient visit 15 minutes Layla Rodriguez [employer] Work Phone: [facility] Comment on above: Post herpetic neural kevyn (CMS/HCC) Start: 07-28-2024 End: 07-28-2024 ambulatory LAYLA MICHAEL Not Available Start: 07-28-2024 End: 07-28-2024 Bamboo flowsheet Layla Michael [employer] Work Phone: [facility] Start: 07-28-2024 End: 07-28-2024 Bamboo flowsheet Layla Michael [employer] Work Phone: [facility]AL[facility] Start: 07-13-2024 End: 07-13-2024 Clinisync Result Encounter Generic External Data Provider [facility] Unsolicited Start: 07-13-2024 End: 07-13-2024 Clinisync Result Encounter Generic External Data Provider [facility] External Department Unsolicited Start: 07-12-2024 End: 07-12-2024 Clinisync Result Encounter Generic External Data Provider [facility] External Department Unsolicited Start: 07-12-2024 End: 07-12-2024 Clinisync Result Encounter Generic External Data Provider [facility] External Department Unsolicited Start: 07-07-2024 End: 07-07-2024 Bamboo flowsheet Jorge [...] current use of insulin (CMS/HCC); Dyslipidemia (CMS/HCC); Chronic obstructive pulmonary disease, unspecified COPD type (CMS/HCC); Statin myopathy; Type 2 diabetes mellitus with other specified complication (CMS/HCC) Start: 07-07-2024 End: 07-07-2024 ambulatory JORGE LUIS MALIK Not Available Start: 07-05-2024 End: 07-05-2024 ambulatory Lalo SOUZA Facility:[facility] Start: 07-05-2024 End: 07-05-2024 Lab Drop off Lalo SOUZA [facility] Start: 07-05-2024 End: 07-05-2024 ambulatory Lalo SOUZA Facility:[facility] Start: 07-05-2024 End: 07-05-2024 Patient encounter procedure Lalo SOUZA [facility] Start: 06-24-2024 End: 06-24-2024 Clinisync Result Encounter Jorge Luis Malik MD Work Phone: [facility] External Department Unsolicited Start: 06-24-2024 End: 06-24-2024 Clinisync Result Encounter Jorge Luis Malik MD Work Phone: [facility] External Department Unsolicited Start: 06-23-2024 End: 06-23-2024 Bamboo flowsheet Bobbyer Meena DO Work Phone: [facility]LEND[facility] Start: 06-23-2024 End: 06-23-2024 Bamboo flowsheet Roberto Caraballoett DO Work Phone: [facility] Start: 06-23-2024 End: 06-23-2024 Office outpatient new 45 minutes Roberto Robledo DO Work Phone: [facility] Comment on above: Post herpetic neural kevyn (CMS/HCC) (Primary Dx) Start: 06-23-2024 End: 06-23-2024 ambulatory ROBERTO ROBLEDO Not Available Start: 06-15-2024 ambulatory Lalo SOUZA Facility :[facility] Start: 06-14-2024 End: 06-14-2024 Bamboo flowsheet [...] Date Procedure Procedure Detail Performing Clinician Start: 12-27-2024 Cystoscopy Lalo BERMUDEZ Start: 09-27-2024 ALL BASIC METABOLIC PANEL Generic External Data Provider Start: 09-09-2024 CA ECHO DOPPLER COMPLETE Generic External Data Provider Start: 08-26-2024 Transurethral resect ion of bladder neoplasm KIMITIKA GRAYSON Start: 08-11-2024 Cystoscopy KIMI SERRANO Start: 07-13-2024 CT ABDOMEN PELVIS WO/W CON Generic External Data Provider Start: 07-12-2024 [facility] CREATININE Generic External Data Provider Start: 06-24-2024 [facility] UA (CLEAN/CATCH) MICROSCOPIC IF INDICATE Jorge Luis Malik MD Work Phone: Start: 05-24-2024 ALL CBC WITH AUTO DIFF Jorge Luis Malik MD Work Phone: Start: 01-20-2024 MLR HEMOGLOBIN A1C Jorge Luis Malik MD Work Phone: Start: 02-12-[address] JORGE LUIS ORTIZ Comment on above: Performed By: #### P [facility] #### [facility] [address] [place] [address] Dr. Sulema Blair History of hernia repair Erna duckworth SOUZA Plan of Treatment Date Care Activity Detail Author Start: 11-02-2025 Glaucoma screening Diabetes: R etinopathy Screening [facility] Start: 07-07-2025 Medicare Annual Wellness (AWV) Medicare Annual Wellness (AWV) [facility] Start: 05-24-2025 Urine screening for protein Diabetes: Urine Protein Screening [facility] Start: 04-08-2025 End: 04-08-2025 Patient encounter procedure 04/08/2025 9:45 AM EST Office Visit [facility] [address] [place] [id number] Jorge Luis Malik MD [address] [place] [phone] [facility] Start: 01-31-2025 Influenza vaccination [facility] Start: 01-04-2025 End: 01-04-2026 Hemoglobin A1c/Hemoglobin.total in Blood Hemoglobin A1c Lab Routine Type 2 diabetes mellitus with hyperglycemia, without long-term current use of insulin (HCC) Expected: 01/04/2025 (Approximate), Expires: 01/04/2026 [facility] Work Phone: Comment on above: Expected: 01/04/2025 (Approximate), Expires: 01/04/2026 Start: 01-04-2025 End: 01-04-2025 Patient encounter procedure [facility] Comment on above: Arrived Start: 11-22-2024 Hemoglobin A1c measurement Diabetes: Hemoglobin A1C [facility] Start: 10-28-2024 End: 10-28-2024 Patient encounter procedure [facility] Comment on above: Arrived Start: 07-28-2024 End: 07-28-2024 Patient encounter procedure [facility] S[facility] Comment on above: Arrived Start: 07-22-2024 Hemoglobin A1c measurement Diabetes: Hemoglobin A1C [facility] Start: 07-07-2024 End: 07-07-2024 Patient encounter procedure [facility] Comment on above: Arrived Start: 06-23-2024 End: 06-23-[address] [facility] Comment on above: Arrived Start: 06-14-2024 End: 06-14-2025 Bacteria identified in Urine by Culture Urine culture (clean catch) Microbiology Routine Gross hematuria Expected: 06/14/2024 (Approximate), Expires: 06/14/2025 [facility] Work Phone: Comment on above: Expected: 06/14/2024 (Approximate), Expires: 06/14/2025 Start: 06-14-2024 End: 06-14-2025 Urinalysis complete panel - Urine Urinalysis with reflex microscopic (clean catch) Lab Routine Gross hematuria Expected: 06/14/2024 (Approximate), Expires: 06/14/2025 [facility] Comment on above: Expected: 06/14/2024 (Approximate), Expires: 06/14/2025 Start: 06-14-2024 End: 06-14-2024 Patient encounter procedure 06/14/2024 1:15 PM EST [facility] [address] [place] [address] Jorge Luis Malik MD [address] [place] [address] [facility] Comment on above: Arrived Start: 05-17-2024 End: 05-17-2025 Basic metabolic 1998 panel - Serum or Plasma Basic metabolic panel Lab Routine Encounter for long-term (current) use of medications Expected: 05/17/2024 (Approximate), Expires: 05/17/2025 [facility] Comment on above: Expected: 05/17/2024 (Approximate), Expires: 05/17/2025 Start: 05-17-2024 End: 05-17-2025 CBC W Auto Differential panel - Blood CBC and differential Lab Routine Encounter for long-term (current) use of medications Expected: 05/17/2024 (Approximate), Expires: 05/17/2025 [facility] Comment on above: Expected: 05/17/2024 (Approximate), Expires: 05/17/2025 Start: 05-17-2024 End: 05-17-2025 Hemoglobin A1c/Hemoglobin.total in Blood Hemoglobin A1c Lab Routine Type 2 diabetes mellitus with hyperglycemia, without long-term current use of insulin (CMS/HCC) Expected: 05/17/2024 (Approximate), Expires: 05/17/2025 [facility] Comment on above: Expected: 05/17/2024 (Approximate), Expires: 05/17/2025 Start: 05-17-2024 End: 05-17-2025 Hepatic function 2000 panel - Serum or Plasma Hepatic function panel Lab Routine Encounter for long-term (current) use of medications Expected: 05/17/2024 (Approximate), Expires: 05/17/2025 [facility] Comment on above: Expected: 05/17/2024 (Approximate), Expires: 05/17/2025 Start: 05-17-2024 End: 05-17-2025 Lipid 1996 panel - Serum or Plasma Lipid panel Lab Routine Dyslipidemia (CMS/HCC) Expected: 05/17/2024 (Approximate), Expires: 05/17/2025 [facility] Comment on above: Expected: 05/17/2024 (Approximate), Expires: 05/17/2025 Start: 05-17-2024 End: 05-17-2025 Microalbumin/Creatinine panel in random Urine Microalbumin / creatinine, urine ratio Lab Routine Type 2 diabetes mellitus with hyperglycemia, without long-term current use of insulin ([facility]) Expected: 05/17/2024 (Approximate), Expires: 05/17/2025 [facility] Work Phone: Comment on above: Expected: 05/17/2024 (Approximate), Expires: 05/17/2025 Start: 05-17-2024 End: 05-17-2025 Prostate specific Ag [Mass/volume] in Serum or Plasma PSA Lab Routine Encounter for screening prostate specific antigen (PSA) measurement Expected: 05/17/2024 (Approximate), Expires: 05/17/2025 [facility] Comment on above: Expected: 05/17/2024 (Approximate), Expires: 05/17/2025 Start: 05-17-2024 End: 05-17-2025 Thyrotropin [Units/volume] in Serum or Plasma TSH Lab Routine Adult hypothyroidism ([facility]) Expected: 05/17/2024 (Approximate), Expires: 05/17/2025 [facility] Comment on above: Expected: 05/17/2024 (Approximate), Expires: 05/17/2025 Start: 05-17-2024 End: 05-17-2025 Thyroxine (T4) free [Mass/volume] in Serum or Plasma T4, free Lab Routine Adult hypothyroidism ([facility]) Expected: 05/17/2024 (Approximate), Expires: 05/17/2025 [facility] Comment on above: Expected: 05/17/2024 (Approximate), Expires: 05/17/2025 Start: 05-17-2024 End: 05-17-2024 Patient encounter procedure 05/17/2024 10:15 AM EST [facility] [address] [place] [address] Jorge Luis Malik MD [address] [place] [address] Arrived [facility] Comment on above: Arrived Start: 05-02-2024 Urine screening for protein Diabetes: Urine Protein Screening [facility] Start: 02-01-2024 Influenza vaccination Influenza Vacc ine (#1) [facility] Start: 11-01-2023 Hemoglobin A1c measurement Diabetes: Hemoglobin A1C [facility] Start: 1940 Medicare Annual Wellness (AWV) Medicare Annual Wellness (AWV) [facility] Immunizations Immunization Date Immunization Notes Care Provider Fa cili 02-16-2025 bacillus calmette-gu anshul vaccine Shannan Rebeca [facility] 02-09-2025 bacillus calmette-gu anshul vaccine Shannan Rebeca [facility] 02-02-2025 bacillus calmette-gu anshul vaccine Shannan Rebeca [facility] 11-15-2024 bacillus calmette-gu anshul vaccine KIMI RADHA [facility] 11-08-2024 bacillus calmette-gu anshul vaccine KIMI RADHA [facility] 11-01-2024 bacillus calmette-gu anshul vaccine KIMI RADHA [facility] 10-26-2024 bacillus calmette-gu anshul vaccine KIMI RADHA [facility] 10-18-2024 bacillus calmette-gu anshul vaccine KIMI RADHA [facility] 10-11-2024 bacillus calmette-gu anshul vaccine KIMI RADHA [facility] 12-12-2023 pneumococcal 20-liz nt conjugate vaccine Lalo SOUZA [facility] 12-12-2023 zoster vaccine recombinant Lalo SOUZA [facility] 10-07-2023 zoster vaccine recombinant Lalo SOUZA [facility] 03-07-2023 Influenza, Seasonal, Quadrivalent, Adjuvanted Generic Provider [facility] 03-07-2023 influenza virus vacc ine, unspecified formulation Jorge Luis Malik MD Work Phone: [facility] 04-08-2022 influenza virus vacc ine, unspecified formulation Lalo SOUZA [facility] 04-08-2022 Influenza, High-dose Seasonal, Quadrivalent, Preservative Free Generic Provider [facility] 04-21-2021 SARS-CoV-2 (COVID-19 ) mRNA BNT-162b2 vax Lalo SOUZA [facility] 03-22-2021 influenza virus vacc ine, unspecified formulation Lalo SOUZA [facility] 03-22-2021 Influenza, Seasonal, Quadrivalent, Adjuvanted Generic Provider [facility] 07-21-2020 SARS-CoV-2 (COVID-19 ) mRNA BNT-162b2 vax Lalo SOUZA [facility] Comment on above: Result Comment: 2024: [id number] 06-30-2020 SARS-CoV-2 (COVID-19 ) mRNA BNT-162b2 vax Lalo SOUZA [facility] Comment on above: Result Comment: 2024: [id number] 02-11-2020 unknown vaccine or immune globulin Generic Provider [facility] 03-10-2019 influenza virus vacc ine, unspecified formulation Lalo SOUZA [facility] 03-10-2019 influenza, high dose seasonal, preservative-free Generic Provider [facility] 02-11-2018 influenza virus vacc ine, unspecified formulation Lalo SOUZA [facility] 02-11-2018 influenza, high dose seasonal, preservative-free Generic Provider [facility] 04-10-2016 influenza virus vacc ine, unspecified formulation Lalo SOUZA [facility] 04-10-2016 influenza, high dose seasonal, preservative-free Generic Provider [facility] 03-10-2015 influenza virus vacc ine, unspecified formulation Lalo SOUZA [facility] 03-10-2015 influenza, high dose seasonal, preservative-free Generic Provider [facility] 08-21-2010 pneumococcal polysaccharide vaccine, 23 valent Lalo SOUZA [facility] Payers Date Payer Category Payer Self-pay 2024 Unknown [id number] 2021 Medicare [id number] 2021 Medicare (Managed Care) [employer] [id number] 1959 Unknown [id number] 1942 Unknown [id number] 2.16.840.1.483235.3.579. 2.593 1942 Unknown [id number] 2.16.840.1.532540.3.579. 2.593 1942 Unknown [id number] 2.16.840.1.163883.3.579. 2.593 1942 Unknown [id number] 2.16.840.1.260768.3.579. 2.727 1942 Unknown [id number] 2.16.840.1.197715.3.579. 2.727 1942 Unknown [id number] 2.16.840.1.610752.3.579. 2.727 1942 Unknown [id number] 2.16.840.1.504443.3.579. 2.1259 1942 Unknown [id number] 2.16.840.1.787338.3.579. 2.1259 1942 Unknown [id number] 2.16.840.1.967492.3.579. 2.1259 1942 Unknown [id number] 2.16.840.1.367819.3.579. 2.1259 1942 Unknown [id number] 2.16.840.1.586948.3.579. 2.1259 1942 Unknown [id number] 2.16.840.1.737904.3.579. 2.1259 1942 Unknown [id number] 2.16.840.1.529836.3.579. 2.1259 1942 Unknown [id number] 2.16.840.1.086702.3.579. 2.1259 1942 Unknown [id number] 2.16.840.1.687148.3.579. 2.727 1942 Unknown [id number] 2.16.840.1.823739.3.579. 2.727 1942 Unknown [id number] 2.16.840.1.426297.3.579. 2. 1942 Unknown [id number] 2.16.840.1.561732.3.579. 2.727 1942 Unknown [id number] 2.16.840.1.778579.3.579. 2. 1942 Unknown [id number] 2.16.840.1.825210.3.579. 2. 1942 Unknown [id number] 2.16.840.1.486544.3.579. 2. 1942 Unknown [id number] 2.16.840.1.434605.3.579. 2. 1942 Unknown [id number] 2.16.840.1.480935.3.579. 2 1942 Unknown [id number] 2.16.840.1.920690.3.579. 2. 1942 Unknown [id number] 2.16.840.1.949243.3.579. 2. 1942 Unknown [id number] 2.16.840.1.211568.3.579. 2.72 1942 Unknown [id number] 2.16.840.1.152926.3.579. 2. 1942 Unknown [id number] 2.16.840.1.839629.3.579. 2.72 1942 Unknown [id number] 2.16.840.1.080289.3.579. 2727 1942 Unknown [id number] 2.16.840.1.403802.3.579. 2.727 1942 Unknown [id number] 2.16.840.1.102323.3.579. 2.727 Unknown [id number] Social History Date Type Detail Facility Start: 07-07-2023 End: 02-17-2025 Tobacco smoking status NHIS Ex-smoker [facility] Comment on above: Quit 56 years ago Start: 06-02-1949 End: 06-02-1968 History of tobacco use Current smoker [facility] Start: 06-02-1949 End: 06-02-1968 History of tobacco use Cigarette Smoker [facility] Start: 07-07-2023 End: 07-07-2024 Cigarettes smoked current (pack per day) - Reported 1 [facility] Start: 07-07-2023 End: 06-23-2024 Tobacco use and exposure Smokeless tobacco non-user [facility] Start: 01-06-2024 End: 07-07-2024 Tobacco use panel [facility] Start: 1940 Sex assigned at Not on file N [facility] Start: 07-05-2024 Tobacco smoking status Never s moked tobacco (finding) [facility] Tobacco smoking status Never [facility] Comment on above: Quit 56 years ago Start: 08-02-2024 End: 01-04-2025 Alcoholic beverage intake Ex-drinker (finding) [facility] Tobacco smoking stat [facility] Unknown if ever smoked [facility] Work Phone: Start: 11-08-2013 End: 08-27-2024 Sex Male (finding) [facility] Start: 1940 Sex Assigned At Male F [facility] Sexual Orientation [facility] Medical Equipment Procedure Code Equipment Code Equipment Origin al Text Equipment Identifier Dates USE ONCE A DAY [id number] Start: 12-31-2023 Functional Status Date Assessment Result Facility 10-18-2024 Functional Status N/A [facility] 10-11-2024 Functional Status N/A [facility] 07-05-2024 Functional Status N/A [facility] Clinical Notes 05-17-2024 to 02-16-2025 Jorge Luis Malik MD - 01/04/2025 2:21 PM Osmar Malik MD - 01/04/2025 2:21 PM Osmar Malik MD - 01/04/2025 2:21 PM Osmar Malik MD - 01/04/2025 2:21 PM EDTPatient Instructions Note Date & Type Note Facility 02-16-2025 Hospital Discharge instructions Patient Education 02/16/2025 11:30:03 Bladder Cancer Bladder Cancer Bladder cancer is a condition where abnormal tissue (a tumor) grows in the bladder. The bladder is the organ that holds urine. Two tubes (ureters) carry urine from the kidneys to the bladder. The bladder wall is made of layers of tissue. Cancer that spreads through these layers of the bladder wall becomes more difficult to treat. What increases the risk? The following factors may make you more likely to develop this condition: Smoking. Working where there are risks (occupational exposures), such as working with rubber, leather, clothing fabric, dyes, chemicals, or paint. Being 55 years of age or older. Being male. Having long-term bladder inflammation. Having a history of cancer. This includes: ?A family history of bladder cancer. ?Having had bladder cancer before. ?Having had certain treatments for cancer before, such as: ?Medicines to kill cancer cells (chemotherapy). ?Strong X-ray beams or high-energy capsules to kill cancer cells and shrink tumors (radiation therapy). Having been exposed to arsenic. This is a poisonous substance. What are the signs or symptoms? Early symptoms of this condition include: Blood in your urine. Pain when urinating. Infections of your urinary system (urinary tract infections or UTIs) that happen often. Having to urinate sooner or more often than normal. Late symptoms of this condition include: Not being able to urinate. Pain on one side of your lower back. Loss of appetite. Weight loss. Tiredness (fatigue). Swelling in your feet. Bone pain. How is this diagnosed? This condition is diagnosed based on: Your medical history. A physical exam. Lab tests, such as urine tests. Imaging tests. Your symptoms. You may also have other tests or procedures, such as: A cystoscopy. This involves putting a narrow tube into your urethra. The urethra is the organ that carries urine from your bladder to the outside of your body. This procedure is done to view the lining of your bladder for tumors. A biopsy. This involves removing a tissue sample to look at under a microscope to check for cancer. Blood tests or imaging tests may be needed. These show how far into the bladder wall cancer has grown, and if cancer has spread to any other parts of your body. Tests may include: CT scan. MRI. Bone scan. X-ray. How is this treated? Your health care provider may recommend one or more types of treatment based on the stage of your cancer. The most common treatments are: Surgery to remove the cancer. Types of surgeries include: ?Removing a tumor on the inside wall of the bladder (transurethral resection). ?Removing the bladder (cystectomy). Radiation therapy. This is often combined with chemotherapy. Chemotherapy. Immunotherapy. This uses medicines to help your body's disease-fighting system (immune system) destroy cancer cells. Follow these instructions at home: Take kpia-rri-ofaaepi and prescription medicines only as told by your health care provider. If you were prescribed an antibiotic medicine, take it as told by your health care provider. Do not stop using the antibiotic even if you start to feel better. Eat a healthy diet. Some treatments might affect your appetite. Do not use any products that contain nicotine or tobacco. These products include cigarettes, chewing tobacco, and vaping devices, such as e-cigarettes. If you need help quitting, ask your health care provider. Consider joining a support group. This may help you learn to deal with the stress of having bladder cancer. Tell your cancer care team if you develop side effects. Your team may be able to recommend ways to get relief. Keep all follow-up visits. This is important. Where to find more information [employer] (ACS): cancer.org National Cancer [place] (NCI): cancer.gov Contact a health care provider if: You have symptoms of a UTI. These include: ?Fever. ?Chills. ?Weakness. ?Muscle aches. ?Pain in your abdomen. ?Urge to urinate that is stronger and happens more often than normal. ?Burning in the bladder or urethra when you urinate. Get help right away if: There is blood in your urine. You cannot urinate. You have severe pain or other symptoms that do not go away. Summary Bladder cancer is a condition where tumors grow in the bladder. Diagnosis is based on your medical history, a physical exam, lab tests, imaging tests, and your symptoms. Your health care provider may recommend one or more types of treatment based on the stage of your cancer. Consider joining a support group. This may help you learn to deal with the stress of having bladder cancer. This information is not intended to replace advice given to you by your health care provider. Make sure you discuss any questions you have with your health care provider. Document Revised: 04/29/2022 Document Reviewed: 04/29/2022 [facility] Patient Education 2023 [employer]. Follow Up Care 01/04/2025 16:47:42 With:LIBBY QUINTANA, Lalo Mclain, URL Address: [address] [place], [place] [id number]- When: Unknown Comments:Surveillance cysto scheduled 03/21/25 [facility] 02-16-2025 Note Patient Education Oncology Bladder Cancer Bladder cancer is a condition where abnormal tissue (a tumor) grows in the bladder. The bladder is the organ that holds urine. Two tubes (ureters) carry urine from the kidneys to the bladder. The bladder wall is made of layers of tissue. Cancer that spreads through these layers of the bladder wall becomes more difficult to treat. What increases the risk? The following factors may make you more likely to develop this condition: ??? Smoking. ??? Working where there are risks (occupational exposures), such as working with rubber, leather, clothing fabric, dyes, chemicals, or paint. ??? Being 55 years of age or older. ??? Being male. ??? Having long-term bladder inflammation. ??? Having a history of cancer. This includes: ? A family history of bladder cancer. ? Having had bladder cancer before. ? Having had certain treatments for cancer before, such as: ? Medicines to kill cancer cells (chemotherapy). ? Strong X-ray beams or high-energy capsules to kill cancer cells and shrink tumors (radiation therapy). ??? Having been exposed to arsenic. This is a poisonous substance. What are the signs or symptoms? Early symptoms of this condition include: ??? Blood in your urine. ??? Pain when urinating. ??? Infections of your urinary system (urinary tract infections or UTIs) that happen often. ??? Having to urinate sooner or more often than normal. Late symptoms of this condition include: ??? Not being able to urinate. ??? Pain on one side of your lower back. ??? Loss of appetite. ??? Weight loss. ??? Tiredness (fatigue). ??? Swelling in your feet. ??? Bone pain. How is this diagnosed? This condition is diagnosed based on: ??? Your medical history. ??? A physical exam. ??? Lab tests, such as urine tests. ??? Imaging tests. ??? Your symptoms. You may also have other tests or procedures, such as: ??? A cystoscopy. This involves putting a narrow tube into your urethra. The urethra is the organ that carries urine from your bladder to the outside of your body. This procedure is done to view the lining of your bladder for tumors. ??? A biopsy. This involves removing a tissue sample to look at under a microscope to check for cancer. Blood tests or imaging tests may be needed. These show how far into the bladder wall cancer has grown, and if cancer has spread to any other parts of your body. Tests may include: ??? CT scan. ??? MRI. ??? Bone scan. ??? X-ray. How is this treated? Your health care provider may recommend one or more types of treatment based on the stage of your cancer. The most common treatments are: ??? Surgery to remove the cancer. Types of surgeries include: ? Removing a tumor on the inside wall of the bladder (transurethral resection). ? Removing the bladder (cystectomy). ??? Radiation therapy. This is often combined with chemotherapy. ??? Chemotherapy. ??? Immunotherapy. This uses medicines to help your body's disease-fighting system (immune system) destroy cancer cells. Follow these instructions at home: ??? Take pfhw-lby-cctlgac and prescription medicines only as told by your health care provider. ??? If you were prescribed an antibiotic medicine, take it as told by your health care provider. Do not stop using the antibiotic even if you start to feel better. ??? Eat a healthy diet. Some treatments might affect your appetite. ??? Do not use any products that contain nicotine or tobacco. These products include cigarettes, chewing tobacco, and vaping devices, such as e-cigarettes. If you need help quitting, ask your health care provider. ??? Consider joining a support group. This may help you learn to deal with the stress of having bladder cancer. ??? Tell your cancer care team if you develop side effects. Your team may be able to recommend ways to get relief. ??? Keep all follow-up visits. This is important. Where to find more information ??? [place] [employer] (ACS): cancer.org ??? National Cancer [place] (NCI): cancer.gov Contact a health care provider if: ??? You have symptoms of a UTI. These include: ? Fever. ? Chills. ? Weakness. ? Muscle aches. ? Pain in your abdomen. ? Urge to urinate that is stronger and happens more often than normal. ? Burning in the bladder or urethra when you urinate. Get help right away if: ??? There is blood in your urine. ??? You cannot urinate. ??? You have severe pain or other symptoms that do not go away. Summary ??? Bladder cancer is a condition where tumors grow in the bladder. ??? Diagnosis is based on your medical history, a physical exam, lab tests, imaging tests, and your symptoms. ??? Your health care provider may recommend one or more types of treatment based on the stage of your cancer. ??? Consider joining a support group. This may help you learn to deal with the stress of having bladder cancer. This information is n (more content not included)... [facility] 02-09-2025 Hospital Discharge instructions Patient Education 02/09/2025 12:13:17 Bladder Cancer Bladder Cancer Bladder cancer is a condition where abnormal tissue (a tumor) grows in the bladder. The bladder is the organ that holds urine. Two tubes (ureters) carry urine from the kidneys to the bladder. The bladder wall is made of layers of tissue. Cancer that spreads through these layers of the bladder wall becomes more difficult to treat. What increases the risk? The following factors may make you more likely to develop this condition: Smoking. Working where there are risks (occupational exposures), such as working with rubber, leather, clothing fabric, dyes, chemicals, or paint. Being 55 years of age or older. Being male. Having long-term bladder inflammation. Having a history of cancer. This includes: ?A family history of bladder cancer. ?Having had bladder cancer before. ?Having had certain treatments for cancer before, such as: ?Medicines to kill cancer cells (chemotherapy). ?Strong X-ray beams or high-energy capsules to kill cancer cells and shrink tumors (radiation therapy). Having been exposed to arsenic. This is a poisonous substance. What are the signs or symptoms? Early symptoms of this condition include: Blood in your urine. Pain when urinating. Infections of your urinary system (urinary tract infections or UTIs) that happen often. Having to urinate sooner or more often than normal. Late symptoms of this condition include: Not being able to urinate. Pain on one side of your lower back. Loss of appetite. Weight loss. Tiredness (fatigue). Swelling in your feet. Bone pain. How is this diagnosed? This condition is diagnosed based on: Your medical history. A physical exam. Lab tests, such as urine tests. Imaging tests. Your symptoms. You may also have other tests or procedures, such as: A cystoscopy. This involves putting a narrow tube into your urethra. The urethra is the organ that carries urine from your bladder to the outside of your body. This procedure is done to view the lining of your bladder for tumors. A biopsy. This involves removing a tissue sample to look at under a microscope to check for cancer. Blood tests or imaging tests may be needed. These show how far into the bladder wall cancer has grown, and if cancer has spread to any other parts of your body. Tests may include: CT scan. MRI. Bone scan. X-ray. How is this treated? Your health care provider may recommend one or more types of treatment based on the stage of your cancer. The most common treatments are: Surgery to remove the cancer. Types of surgeries include: ?Removing a tumor on the inside wall of the bladder (transurethral resection). ?Removing the bladder (cystectomy). Radiation therapy. This is often combined with chemotherapy. Chemotherapy. Immunotherapy. This uses medicines to help your body's disease-fighting system (immune system) destroy cancer cells. Follow these instructions at home: Take ytws-nfu-yyjufct and prescription medicines only as told by your health care provider. If you were prescribed an antibiotic medicine, take it as told by your health care provider. Do not stop using the antibiotic even if you start to feel better. Eat a healthy diet. Some treatments might affect your appetite. Do not use any products that contain nicotine or tobacco. These products include cigarettes, chewing tobacco, and vaping devices, such as e-cigarettes. If you need help quitting, ask your health care provider. Consider joining a support group. This may help you learn to deal with the stress of having bladder cancer. Tell your cancer care team if you develop side effects. Your team may be able to recommend ways to get relief. Keep all follow-up visits. This is important. Where to find more information [employer] [employer] (ACS): cancer.org National Cancer [place] (NCI): cancer.gov Contact a health care provider if: You have symptoms of a UTI. These include: ?Fever. ?Chills. ?Weakness. ?Muscle aches. ?Pain in your abdomen. ?Urge to urinate that is stronger and happens more often than normal. ?Burning in the bladder or urethra when you urinate. Get help right away if: There is blood in your urine. You cannot urinate. You have severe pain or other symptoms that do not go away. Summary Bladder cancer is a condition where tumors grow in the bladder. Diagnosis is based on your medical history, a physical exam, lab tests, imaging tests, and your symptoms. Your health care provider may recommend one or more types of treatment based on the stage of your cancer. Consider joining a support group. This may help you learn to deal with the stress of having bladder cancer. This information is not intended to replace advice given to you by your health care provider. Make sure you discuss any questions you have with your health care provider. Document Revised: 04/29/2022 Document Reviewed: 04/29/2022 [facility] Patient Education 2023 [employer]. Follow Up Care 01/04/2025 16:45:50 With:Shannan Jose PA-C, URL Address: When: Unknown Comments:RTC in 1 week for BCG #3 of 3 [facility] 02-09-2025 Note Patient Education Oncology Bladder Cancer Bladder cancer is a condition where abnormal tissue (a tumor) grows in the bladder. The bladder is the organ that holds urine. Two tubes (ureters) carry urine from the kidneys to the bladder. The bladder wall is made of layers of tissue. Cancer that spreads through these layers of the bladder wall becomes more difficult to treat. What increases the risk? The following factors may make you more likely to develop this condition: ??? Smoking. ??? Working where there are risks (occupational exposures), such as working with rubber, leather, clothing fabric, dyes, chemicals, or paint. ??? Being 55 years of age or older. ??? Being male. ??? Having long-term bladder inflammation. ??? Having a history of cancer. This includes: ? A family history of bladder cancer. ? Having had bladder cancer before. ? Having had certain treatments for cancer before, such as: ? Medicines to kill cancer cells (chemotherapy). ? Strong X-ray beams or high-energy capsules to kill cancer cells and shrink tumors (radiation therapy). ??? Having been exposed to arsenic. This is a poisonous substance. What are the signs or symptoms? Early symptoms of this condition include: ??? Blood in your urine. ??? Pain when urinating. ??? Infections of your urinary system (urinary tract infections or UTIs) that happen often. ??? Having to urinate sooner or more often than normal. Late symptoms of this condition include: ??? Not being able to urinate. ??? Pain on one side of your lower back. ??? Loss of appetite. ??? Weight loss. ??? Tiredness (fatigue). ??? Swelling in your feet. ??? Bone pain. How is this diagnosed? This condition is diagnosed based on: ??? Your medical history. ??? A physical exam. ??? Lab tests, such as urine tests. ??? Imaging tests. ??? Your symptoms. You may also have other tests or procedures, such as: ??? A cystoscopy. This involves putting a narrow tube into your urethra. The urethra is the organ that carries urine from your bladder to the outside of your body. This procedure is done to view the lining of your bladder for tumors. ??? A biopsy. This involves removing a tissue sample to look at under a microscope to check for cancer. Blood tests or imaging tests may be needed. These show how far into the bladder wall cancer has grown, and if cancer has spread to any other parts of your body. Tests may include: ??? CT scan. ??? MRI. ??? Bone scan. ??? X-ray. How is this treated? Your health care provider may recommend one or more types of treatment based on the stage of your cancer. The most common treatments are: ??? Surgery to remove the cancer. Types of surgeries include: ? Removing a tumor on the inside wall of the bladder (transurethral resection). ? Removing the bladder (cystectomy). ??? Radiation therapy. This is often combined with chemotherapy. ??? Chemotherapy. ??? Immunotherapy. This uses medicines to help your body's disease-fighting system (immune system) destroy cancer cells. Follow these instructions at home: ??? Take mlvl-osa-szoihud and prescription medicines only as told by your health care provider. ??? If you were prescribed an antibiotic medicine, take it as told by your health care provider. Do not stop using the antibiotic even if you start to feel better. ??? Eat a healthy diet. Some treatments might affect your appetite. ??? Do not use any products that contain nicotine or tobacco. These products include cigarettes, chewing tobacco, and vaping devices, such as e-cigarettes. If you need help quitting, ask your health care provider. ??? Consider joining a support group. This may help you learn to deal with the stress of having bladder cancer. ??? Tell your cancer care team if you develop side effects. Your team may be able to recommend ways to get relief. ??? Keep all follow-up visits. This is important. Where to find more information ??? [place] [employer] (ACS): cancer.org ??? National Cancer [place] (NCI): cancer.gov Contact a health care provider if: ??? You have symptoms of a UTI. These include: ? Fever. ? Chills. ? Weakness. ? Muscle aches. ? Pain in your abdomen. ? Urge to urinate that is stronger and happens more often than normal. ? Burning in the bladder or urethra when you urinate. Get help right away if: ??? There is blood in your urine. ??? You cannot urinate. ??? You have severe pain or other symptoms that do not go away. Summary ??? Bladder cancer is a condition where tumors grow in the bladder. ??? Diagnosis is based on your medical history, a physical exam, lab tests, imaging tests, and your symptoms. ??? Your health care provider may recommend one or more types of treatment based on the stage of your cancer. ??? Consider joining a support group. This may help you learn to deal with the stress of having bladder cancer. This information is n (more content not included)... [facility] 02-02-2025 Hospital Discharge instructions Patient Education 02/02/2025 11:17:56 Bladder Cancer Bladder Cancer Bladder cancer is a condition where abnormal tissue (a tumor) grows in the bladder. The bladder is the organ that holds urine. Two tubes (ureters) carry urine from the kidneys to the bladder. The bladder wall is made of layers of tissue. Cancer that spreads through these layers of the bladder wall becomes more difficult to treat. What increases the risk? The following factors may make you more likely to develop this condition: Smoking. Working where there are risks (occupational exposures), such as working with rubber, leather, clothing fabric, dyes, chemicals, or paint. Being 55 years of age or older. Being male. Having long-term bladder inflammation. Having a history of cancer. This includes: ?A family history of bladder cancer. ?Having had bladder cancer before. ?Having had certain treatments for cancer before, such as: ?Medicines to kill cancer cells (chemotherapy). ?Strong X-ray beams or high-energy capsules to kill cancer cells and shrink tumors (radiation therapy). Having been exposed to arsenic. This is a poisonous substance. What are the signs or symptoms? Early symptoms of this condition include: Blood in your urine. Pain when urinating. Infections of your urinary system (urinary tract infections or UTIs) that happen often. Having to urinate sooner or more often than normal. Late symptoms of this condition include: Not being able to urinate. Pain on one side of your lower back. Loss of appetite. Weight loss. Tiredness (fatigue). Swelling in your feet. Bone pain. How is this diagnosed? This condition is diagnosed based on: Your medical history. A physical exam. Lab tests, such as urine tests. Imaging tests. Your symptoms. You may also have other tests or procedures, such as: A cystoscopy. This involves putting a narrow tube into your urethra. The urethra is the organ that carries urine from your bladder to the outside of your body. This procedure is done to view the lining of your bladder for tumors. A biopsy. This involves removing a tissue sample to look at under a microscope to check for cancer. Blood tests or imaging tests may be needed. These show how far into the bladder wall cancer has grown, and if cancer has spread to any other parts of your body. Tests may include: CT scan. MRI. Bone scan. X-ray. How is this treated? Your health care provider may recommend one or more types of treatment based on the stage of your cancer. The most common treatments are: Surgery to remove the cancer. Types of surgeries include: ?Removing a tumor on the inside wall of the bladder (transurethral resection). ?Removing the bladder (cystectomy). Radiation therapy. This is often combined with chemotherapy. Chemotherapy. Immunotherapy. This uses medicines to help your body's disease-fighting system (immune system) destroy cancer cells. Follow these instructions at home: Take kksw-fko-guvhgok and prescription medicines only as told by your health care provider. If you were prescribed an antibiotic medicine, take it as told by your health care provider. Do not stop using the antibiotic even if you start to feel better. Eat a healthy diet. Some treatments might affect your appetite. Do not use any products that contain nicotine or tobacco. These products include cigarettes, chewing tobacco, and vaping devices, such as e-cigarettes. If you need help quitting, ask your health care provider. Consider joining a support group. This may help you learn to deal with the stress of having bladder cancer. Tell your cancer care team if you develop side effects. Your team may be able to recommend ways to get relief. Keep all follow-up visits. This is important. Where to find more information [employer] [employer] (ACS): cancer.org National Cancer [place] (NCI): cancer.gov Contact a health care provider if: You have symptoms of a UTI. These include: ?Fever. ?Chills. ?Weakness. ?Muscle aches. ?Pain in your abdomen. ?Urge to urinate that is stronger and happens more often than normal. ?Burning in the bladder or urethra when you urinate. Get help right away if: There is blood in your urine. You cannot urinate. You have severe pain or other symptoms that do not go away. Summary Bladder cancer is a condition where tumors grow in the bladder. Diagnosis is based on your medical history, a physical exam, lab tests, imaging tests, and your symptoms. Your health care provider may recommend one or more types of treatment based on the stage of your cancer. Consider joining a support group. This may help you learn to deal with the stress of having bladder cancer. This information is not intended to replace advice given to you by your health care provider. Make sure you discuss any questions you have with your health care provider. Document Revised: 04/29/2022 Document Reviewed: 04/29/2022 [facility] Patient Education 2023 [employer]. Follow Up Care 01/04/2025 16:43:19 With:Shannan Jose PA-C, URL Address: When: Unknown Comments:RTO in 1 week for BCG #2 of 3 [facility] 02-02-2025 Note Patient Education Oncology Bladder Cancer Bladder cancer is a condition where abnormal tissue (a tumor) grows in the bladder. The bladder is the organ that holds urine. Two tubes (ureters) carry urine from the kidneys to the bladder. The bladder wall is made of layers of tissue. Cancer that spreads through these layers of the bladder wall becomes more difficult to treat. What increases the risk? The following factors may make you more likely to develop this condition: ??? Smoking. ??? Working where there are risks (occupational exposures), such as working with rubber, leather, clothing fabric, dyes, chemicals, or paint. ??? Being 55 years of age or older. ??? Being male. ??? Having long-term bladder inflammation. ??? Having a history of cancer. This includes: ? A family history of bladder cancer. ? Having had bladder cancer before. ? Having had certain treatments for cancer before, such as: ? Medicines to kill cancer cells (chemotherapy). ? Strong X-ray beams or high-energy capsules to kill cancer cells and shrink tumors (radiation therapy). ??? Having been exposed to arsenic. This is a poisonous substance. What are the signs or symptoms? Early symptoms of this condition include: ??? Blood in your urine. ??? Pain when urinating. ??? Infections of your urinary system (urinary tract infections or UTIs) that happen often. ??? Having to urinate sooner or more often than normal. Late symptoms of this condition include: ??? Not being able to urinate. ??? Pain on one side of your lower back. ??? Loss of appetite. ??? Weight loss. ??? Tiredness (fatigue). ??? Swelling in your feet. ??? Bone pain. How is this diagnosed? This condition is diagnosed based on: ??? Your medical history. ??? A physical exam. ??? Lab tests, such as urine tests. ??? Imaging tests. ??? Your symptoms. You may also have other tests or procedures, such as: ??? A cystoscopy. This involves putting a narrow tube into your urethra. The urethra is the organ that carries urine from your bladder to the outside of your body. This procedure is done to view the lining of your bladder for tumors. ??? A biopsy. This involves removing a tissue sample to look at under a microscope to check for cancer. Blood tests or imaging tests may be needed. These show how far into the bladder wall cancer has grown, and if cancer has spread to any other parts of your body. Tests may include: ??? CT scan. ??? MRI. ??? Bone scan. ??? X-ray. How is this treated? Your health care provider may recommend one or more types of treatment based on the stage of your cancer. The most common treatments are: ??? Surgery to remove the cancer. Types of surgeries include: ? Removing a tumor on the inside wall of the bladder (transurethral resection). ? Removing the bladder (cystectomy). ??? Radiation therapy. This is often combined with chemotherapy. ??? Chemotherapy. ??? Immunotherapy. This uses medicines to help your body's disease-fighting system (immune system) destroy cancer cells. Follow these instructions at home: ??? Take acwe-mbn-oswaisx and prescription medicines only as told by your health care provider. ??? If you were prescribed an antibiotic medicine, take it as told by your health care provider. Do not stop using the antibiotic even if you start to feel better. ??? Eat a healthy diet. Some treatments might affect your appetite. ??? Do not use any products that contain nicotine or tobacco. These products include cigarettes, chewing tobacco, and vaping devices, such as e-cigarettes. If you need help quitting, ask your health care provider. ??? Consider joining a support group. This may help you learn to deal with the stress of having bladder cancer. ??? Tell your cancer care team if you develop side effects. Your team may be able to recommend ways to get relief. ??? Keep all follow-up visits. This is important. Where to find more information ??? [place] [employer] (ACS): cancer.org ??? National Cancer [place] (NCI): cancer.gov Contact a health care provider if: ??? You have symptoms of a UTI. These include: ? Fever. ? Chills. ? Weakness. ? Muscle aches. ? Pain in your abdomen. ? Urge to urinate that is stronger and happens more often than normal. ? Burning in the bladder or urethra when you urinate. Get help right away if: ??? There is blood in your urine. ??? You cannot urinate. ??? You have severe pain or other symptoms that do not go away. Summary ??? Bladder cancer is a condition where tumors grow in the bladder. ??? Diagnosis is based on your medical history, a physical exam, lab tests, imaging tests, and your symptoms. ??? Your health care provider may recommend one or more types of treatment based on the stage of your cancer. ??? Consider joining a support group. This may help you learn to deal with the stress of having bladder cancer. This information is n (more content not included)... [facility] 01-04-2025 History of Present illness Narrative Associated Problem(s): Urothelial carcinoma of bladder (HCC) Follow with urology. Associated Problem(s): Type 2 diabetes mellitus with hyperglycemia (HCC) Reports BS variable and due for A1C. Stick to ADA diet and limit carbs. Associated Problem(s): Post herpetic neuralgia Pain improved with trileptal and continue. Use hydroxyzine for itching. Associated Problem(s): Lumbar spondylosis Pain stable and continue walking. Use robaxin PRN. Associated Problem(s): Generalized anxiety disorder Occasional symptoms but tolerable and use xanax PRN. Associated Problem(s): COPD (chronic obstructive pulmonary disease) (HCC) Symptoms stable and use albuterol PRN. Associated Problem(s): Benign essential hypertension BP controlled and monitor PRN. Images from the original note were not included. Subjective Patient ID: Jam Ramirez Jr. is a 84 y.o. male who presents for Follow-up (6m) and Neck Pain. Follow up DM, HTN, anxiety, back pain, COPD, and bladder cancer. Patient stable today. Back pain mild. Continues to have pain in low back and across top hips. Occasional radiation into left gluteal region and down left leg. Pain increased with walking and activity. Using robaxin PRN and helps. Reports BS variable and depends on diet. Tries to eat well and stick to ADA diet but reports frequent splurges. Denies signs of elevated BS such as polyuria, polyphagia or polydipsia. Postherpetic neuralgia stable. Continues to have pain and burning in cheek and scalp. Not having as much itching. Using gabapentin and trileptal which helps. Overall feels like symptoms getting better. Anxiety stable. Not as stressed out or overwhelmed. Not as nervous or worry as much. Not as toscano or irritable. Using xanax PRN and helps. COPD unchanged. Still SOB with exertion. Mild cough but no sputum. Need to stop and rest frequently. Using albuterol PRN and helps. Following with urology for bladder cancer. Recent scope showed 2 spots and will have more treatments. Neck Pain Pertinent negatives include no chest pain. Review of Systems Constitutional: Negative for fatigue. Respiratory: Negative for cough, shortness of breath and wheezing. Cardiovascular: Negative for chest pain and palpitations. Gastrointestinal: Negative for abdominal pain, diarrhea, nausea and vomiting. Genitourinary: Negative for dysuria. Musculoskeletal: Positive for neck pain. Objective Physical Exam Constitutional: General: He is [...] This Visit COPD (chronic obstructive pulmonary disease) ([facility]) Symptoms stable and use albuterol PRN. Generalized anxiety disorder Occasional symptoms but tolerable and use xanax PRN. Post herpetic neuralgia Pain improved with trileptal and continue. Use hydroxyzine for itching. Type 2 diabetes mellitus with hyperglycemia ([facility]) - Primary Reports BS variable and due for A1C. Stick to ADA diet and limit carbs. Relevant Orders Hemoglobin A1c Lumbar spondylosis Pain stable and continue walking. Use robaxin PRN. Urothelial carcinoma of bladder ([facility]) Follow with urology. Benign essential hypertension BP controlled and monitor PRN. documented in this encounter [facility] 12-27-2024 Hospital Discharge instructions Patient Education 12/27/2024 08:24:48 Cancer Screening for Males Cancer Screening for Males A cancer screening is a test or exam that checks for cancer. Work with your health care provider to create a cancer screening schedule that protects your health. Who should have screening? All people who are male should be considered for screening of certain cancers, including colorectal cancer, prostate cancer, lung cancer, and skin cancer. Your health care provider may recommend screenings for other types of cancer if: You have had cancer before. You have a family member with cancer. You have genes that could increase the risk of cancer. You have risk factors for certain cancers, such as current or past use of tobacco products or being overweight. What are the benefits of screening? Cancer screening is done to look for cancer in the very early stages, before it spreads and becomes harder to treat and before you would start to notice symptoms. Finding cancer early improves the chances of successful treatment. It may save your life. When should I be screened for cancer? When you should be screened for cancer depends on: Your age. Your medical history and your family's medical history. Certain lifestyle factors, such as smoking or other use of tobacco products. Environmental exposure, such as to asbestos. How is screening done? Colorectal cancer Colorectal cancer screening looks for cancer or for growths called polyps that often form before cancer starts. Tests to look for cancer or polyps include: Colonoscopy or flexible sigmoidoscopy. For these procedures, a flexible tube with a small camera is inserted into the rectum. CT colonography. This test uses X-rays and a contrast dye to check the colon for polyps. Tests to look for cancer in the stool (feces) include: Guaiac-based fecal occult blood test (FOBT). This test can find blood in stool. It can be done at home with a kit. Fecal immunochemical test (FIT). This test can find blood in stool. For this test, you will need to collect stool samples at home. Stool DNA test. This test looks for blood in stool and any changes in DNA that can lead to colon cancer. For this test, you will need to collect a stool sample at home and send it to a lab. All adults should have screenings starting at 45 years old and continuing through 75 years old. For males 76 85 years old, the decision to be screened should be based on a person's preferences, life expectancy, overall health, and prior screening history. Your health care provider may recommend screening before 45 years old. You will have tests every 1 10 years, depending on your results and the type of screening test. People at increased risk should start screening at an earlier age. Talk with your health care provider about which screening test is right for you and how often you should be screened. Prostate cancer Prostate cancer screening is done with blood tests and a digital rectal exam. During this exam, a health care provider uses a gloved finger to check prostate size. You may need to be screened for prostate cancer if: You have risk factors for prostate cancer, such as being an person or having a close family member with prostate cancer. You have had gene changes or a genetic condition that was passed on to you from a parent (inherited). These gene changes or genetic conditions include BRCA1 or BRCA2 gene mutations or Jameson syndrome. You have symptoms of prostate cancer, such as problems urinating or problems getting or keeping an erection (erectile dysfunction). When you have been screened for prostate cancer, future screening may be recommended based on the results of your blood tests. Prostate cancer screening for males with average risk may start at 50 years old. Males with risk factors may need to be screened earlier, at 40 45 years old. Talk with your health care provider about whether screening is right for you and, if so, how often you should be screened. Lung cancer Lung cancer screening is done with a CT scan that looks for abnormal changes in the lungs. Discuss lung cancer screening with your health care provider if you are 50 80 years old and if any of the following apply to you: You currently smoke. You used to smoke heavily. You have a smoking history of 1 pack of cigarettes a day for 20 years or 2 packs a day for 10 years. You may need to be screened every year if you smoke heavily or if you used to smoke. Skin cancer Skin cancer screening is done by checking the skin for unusual moles or spots and any changes in existing moles. Your health care provider should check your skin for signs of skin cancer at every physical exam. You should check your skin every month and tell your health care provider right away if anything looks unusual. Males with a wqvnql-qdgn-getlbo risk for skin cancer may want to see a skin piler (glazier helper) for an annual body check. Where to find more information [employer]: cancer.org Centers for Disease Control and Prevention: cdc.gov National Cancer [place]: cancer.gov Contact a health care provider if: You have concerns about any signs or symptoms of cancer. These may include: ?Skin problems. You may have: ?Moles of an unusual shape or color. ?Changes in existing moles. ?A sore on your skin that does not heal. ?Tiredness (fatigue) that does not go away. ?Losing weight without trying. ?Blood in your urine or stool. ?Problems with urination. You may have: ?Changes in urination habits. ?Painful urination. ?Painful ejaculation. ?Problems with coughing or breathing. These may include: ?Coughing or trouble breathing that does not go away. ?Coughing up blood. ?Frequent pain or cramping in your abdomen. This information is not intended to replace advice given to you by your health care provider. Make sure you discuss any questions you have with your health care provider. Document Revised: 05/27/2023 Document Reviewed: 12/09/2022 [facility] Patient Education 2023 [employer]. Follow Up Care 12/02/2024 15:07:34 With:LIBBY QUINTANA, Lalo Mclain, URL Address: [facility] [address] , [place] [address] [phone] When: Unknown Comments:BCG x3, cysto in 3 mos [facility] Note Patient Education Oncology Cancer Screening for Males A cancer screening is a test or exam that checks for cancer. Work with your health care provider to create a cancer screening schedule that protects your health. Who should have screening? All people who are male should be considered for screening of certain cancers, including colorectal cancer, prostate cancer, lung cancer, and skin cancer. Your health care provider may recommend screenings for other types of cancer if: ??? You have had cancer before. ??? You have a family member with cancer. ??? You have genes that could increase the risk of cancer. ??? You have risk factors for certain cancers, such as current or past use of tobacco products or being overweight. What are the benefits of screening? Cancer screening is done to look for cancer in the very early stages, before it spreads and becomes harder to treat and before you would start to notice symptoms. Finding cancer early improves the chances of successful treatment. It may save your life. When should I be screened for cancer? When you should be screened for cancer depends on: ??? Your age. ??? Your medical history and your family's medical history. ??? Certain lifestyle factors, such as smoking or other use of tobacco products. ??? Environmental exposure, such as to asbestos. How is screening done? Colorectal cancer Colorectal cancer screening looks for cancer or for growths called polyps that often form before cancer starts. Tests to look for cancer or polyps include: ??? Colonoscopy or flexible sigmoidoscopy. For these procedures, a flexible tube with a small camera is inserted into the rectum. ??? CT colonography. This test uses X-rays and a contrast dye to check the colon for polyps. Tests to look for cancer in the stool (feces) include: ??? Guaiac-based fecal occult blood test (FOBT). This test can find blood in stool. It can be done at home with a kit. ??? Fecal immunochemical test (FIT). This test can find blood in stool. For this test, you will need to collect stool samples at home. ??? Stool DNA test. This test looks for blood in stool and any changes in DNA that can lead to colon cancer. For this test, you will need to collect a stool sample at home and send it to a lab. All adults should have screenings starting at 45 years old and continuing through 75 years old. For males 76?85 years old, the decision to be screened should be based on a person's preferences, life expectancy, overall health, and prior screening history. Your health care provider may recommend screening before 45 years old. You will have tests every 1?10 years, depending on your results and the type of screening test. People at increased risk should start screening at an earlier age. Talk with your health care provider about which screening test is right for you and how often you should be screened. Prostate cancer Prostate cancer screening is done with blood tests and a digital rectal exam. During this exam, a health care provider uses a gloved finger to check prostate size. You may need to be screened for prostate cancer if: ??? You have risk factors for prostate cancer, such as being an person or having a close family member with prostate cancer. ??? You have had gene changes or a genetic condition that was passed on to you from a parent (inherited). These gene changes or genetic conditions include BRCA1 or BRCA2 gene mutations or Jameson syndrome. ??? You have symptoms of prostate cancer, such as problems urinating or problems getting or keeping an erection (erectile dysfunction). When you have been screened for prostate cancer, future screening may be recommended based on the results of your blood tests. Prostate cancer screening for males with average risk may start at 50 years old. Males with risk factors may need to be screened earlier, at 40?45 years old. Talk with your health care provider about whether screening is right for you and, if so, how often you should be screened. Lung cancer Lung cancer screening is done with a CT scan that looks for abnormal changes in the lungs. Discuss lung cancer screening with your health care provider if you are 50?80 years old and if any of the following apply to you: ??? You currently smoke. ??? You used to smoke heavily. ??? You have a smoking history of 1 pack of cigarettes a day for 20 years or 2 packs a day for 10 years. You may need to be screened every year if you smoke heavily or if you used to smoke. Skin cancer Skin cancer screening is done by checking the skin for unusual moles or spots and any changes in existing moles. Your health care provider should check your skin for signs of skin cancer at every physical exam. You should check your skin every month and tell your health care provider right away if anything looks unusual. Males with a inoyhm-pnlc-gorkns risk for skin cancer may want to see a skin piler (dermatologi (more content not included)... [facility] 12-14-2024 Note [facility] Cardiology Clinic Note Chief Complaint: Patient here for a 3 month follow up. Patient states he started Coreg about 3 months ago, patient states he is not feeling any different. Patient denies chest pain, leg swelling, palpitations, HPI: Jam Ramirez Jr. is a 84 y.o. male With a history of diabetes, hypertension here to establish care and in preop evaluation The patient is very physically active; he can walk up and down a flight of stairs 2-3 times before having to rest on the third time due to shortness of breath. He mows his yard and in the winter he snow blows without chest pain. No orthopnea, no paroxysmal tunnel dyspnea, no lower extremity edema. He has pin point discomfort in the left shoulder blade that is unrelated to exertion. He states that he has it now just sitting in the chair. This does not get worse with any of the physical activities described above. He has never had a history of myocardial infarction, no history of congestive heart failure, no significant arrhythmias. UPDATE 09/27/2024 Blood pressure readings from home fluctuate between 132/80 up to 175/113. Clearly his blood pressures are not well-controlled. He is not sure if these readings are before or after taking his medications. He has no chest pain. He complains of the same pinpoint discomfort in the left shoulder blade unrelated to exertion. He is able to perform activities of daily living without chest discomfort or shortness of breath. Update 12/14/2024: Had surgery uneventfully. No cardiovascular adverse effects perioperatively His blood pressure appears to be much better controlled; it may actually be a little on the low side He does have some mild lightheadedness and wakes up with a little bit of nausea that improves as the day goes on. Review of Systems Constitutional: Positive for malaise/fatigue. Cardiovascular: Positive for dyspnea on exertion. Chest pain: left shoulder on occasion. Leg swelling: minimal. Respiratory: Positive for shortness of breath (with exertion). Neurological: Positive for dizziness and light-headedness. Past Medical History He has a past medical history of COPD (chronic obstructive pulmonary disease) ([facility]), Diabetes mellitus ([facility]), Hematuria, and Hyperlipidemia. Surgical History He has no past surgical history on file. Social History He reports that he does not currently use alcohol. No history on file for tobacco use and drug use. Family History No family history on file. Allergies Codeine Medications Current Outpatient Medications: albuterol 90 mcg/actuation inhaler, Inhale 2 puffs every 4 (four) hours if needed., Disp: , Rfl: ALPRAZolam (Xanax) 0.25 mg tablet, TAKE 1 TABLET BY MOUTH 3 TIMES A DAY NEEDED FOR ANXIETY FOR UP TO 10 DAYS, Disp: , Rfl: carvedilol (Coreg) 6.25 mg tablet, Take 1 tablet (6.25 mg) by mouth with breakfast and with evening meal., Disp: 180 tablet, Rfl: 3 gabapentin (Neurontin) 100 mg capsule, Take 100 mg by mouth 3 times a day., Disp: , Rfl: glipiZIDE (Glucotrol) 10 mg tablet, 10 mg., Disp: , Rfl: hydroCHLOROthiazide (HYDRODiuril) 25 mg tablet, Take 1 tablet (25 mg) by mouth once daily as directed. (Patient not taking: Reported on 09/28/2024), Disp: 90 tablet, Rfl: 3 lisinopril 10 mg tablet, Take 1 tablet (10 mg) by mouth once daily as directed., Disp: 90 tablet, Rfl: 3 metFORMIN XR (Glucophage-XR) 500 mg 24 hr tablet, Take 500 mg by mouth in the morning., Disp: , Rfl: omeprazole (PriLOSEC) [address] capsule, Take 20 mg by mouth., Disp: , Rfl: OXcarbazepine (Trileptal) 300 mg tablet, Take 300 mg by mouth two times daily., Disp: , Rfl: Last Recorded Vitals BP 93/64 (BP Location: Left arm, Patient Position: Sitting) Pulse 63 Ht 1.778 m (5' 10 ) Wt 77.1 kg (170 lb) SpO2 100% BMI 24.39 kg/m??? Physical Examination: GENERAL: alert and oriented x3, well developed, in no acute distress. HEAD: atraumatic, normocephalic. EYES: JORDAN, EOMI. NECK: trachea midline, no JVD present, no carotid bruits present. CARDIAC: S1, S2 present. RRR. No murmur, rubs, or gallops. RESPIRATORY: CTAB, no increased effort of breathing, no rales, rhonchi, or wheezing. ABDOMEN: soft, nontender, nondistended. EXTREMITIES: no lower extremity edema, peripheral pulses are 2+ bilaterally. No rash/skin discoloration present. NEURO: strength/sensation equal and symmetric in bilateral upper and lower extremities. PSYCH: appropriate mood, affect, and judgement. INVESTIGATIONS: EKG 08/16/2024: Sinus rhythm, borderline left axis deviation, right bundle branch block, minimal voltage criteria for LVH : Global left ventricular systolic function is normal; visually estimated ejection fraction is 55% Moderate left ventricular hypertrophy Normal right ventricular size and systolic function Diastolic function is indeterminate The left atrium is mildly dilated Mild aortic valve reg (more content not included)... [facility] 11-15-2024 Hospital Discharge instructions Patient Education 11/15/2024 14:16:57 Bladder Cancer Bladder Cancer Bladder cancer is a condition where abnormal tissue (a tumor) grows in the bladder. The bladder is the organ that holds urine. Two tubes (ureters) carry urine from the kidneys to the bladder. The bladder wall is made of layers of tissue. Cancer that spreads through these layers of the bladder wall becomes more difficult to treat. What increases the risk? The following factors may make you more likely to develop this condition: Smoking. Working where there are risks (occupational exposures), such as working with rubber, leather, clothing fabric, dyes, chemicals, or paint. Being 55 years of age or older. Being male. Having long-term bladder inflammation. Having a history of cancer. This includes: ?A family history of bladder cancer. ?Having had bladder cancer before. ?Having had certain treatments for cancer before, such as: ?Medicines to kill cancer cells (chemotherapy). ?Strong X-ray beams or high-energy capsules to kill cancer cells and shrink tumors (radiation therapy). Having been exposed to arsenic. This is a poisonous substance. What are the signs or symptoms? Early symptoms of this condition include: Blood in your urine. Pain when urinating. Infections of your urinary system (urinary tract infections or UTIs) that happen often. Having to urinate sooner or more often than normal. Late symptoms of this condition include: Not being able to urinate. Pain on one side of your lower back. Loss of appetite. Weight loss. Tiredness (fatigue). Swelling in your feet. Bone pain. How is this diagnosed? This condition is diagnosed based on: Your medical history. A physical exam. Lab tests, such as urine tests. Imaging tests. Your symptoms. You may also have other tests or procedures, such as: A cystoscopy. This involves putting a narrow tube into your urethra. The urethra is the organ that carries urine from your bladder to the outside of your body. This procedure is done to view the lining of your bladder for tumors. A biopsy. This involves removing a tissue sample to look at under a microscope to check for cancer. Blood tests or imaging tests may be needed. These show how far into the bladder wall cancer has grown, and if cancer has spread to any other parts of your body. Tests may include: CT scan. MRI. Bone scan. X-ray. How is this treated? Your health care provider may recommend one or more types of treatment based on the stage of your cancer. The most common treatments are: Surgery to remove the cancer. Types of surgeries include: ?Removing a tumor on the inside wall of the bladder (transurethral resection). ?Removing the bladder (cystectomy). Radiation therapy. This is often combined with chemotherapy. Chemotherapy. Immunotherapy. This uses medicines to help your body's disease-fighting system (immune system) destroy cancer cells. Follow these instructions at home: Take whqp-kug-mczkjog and prescription medicines only as told by your health care provider. If you were prescribed an antibiotic medicine, take it as told by your health care provider. Do not stop using the antibiotic even if you start to feel better. Eat a healthy diet. Some treatments might affect your appetite. Do not use any products that contain nicotine or tobacco. These products include cigarettes, chewing tobacco, and vaping devices, such as e-cigarettes. If you need help quitting, ask your health care provider. Consider joining a support group. This may help you learn to deal with the stress of having bladder cancer. Tell your cancer care team if you develop side effects. Your team may be able to recommend ways to get relief. Keep all follow-up visits. This is important. Where to find more information [employer] [employer] (ACS): cancer.org National Cancer [place] (NCI): cancer.gov Contact a health care provider if: You have symptoms of a UTI. These include: ?Fever. ?Chills. ?Weakness. ?Muscle aches. ?Pain in your abdomen. ?Urge to urinate that is stronger and happens more often than normal. ?Burning in the bladder or urethra when you urinate. Get help right away if: There is blood in your urine. You cannot urinate. You have severe pain or other symptoms that do not go away. Summary Bladder cancer is a condition where tumors grow in the bladder. Diagnosis is based on your medical history, a physical exam, lab tests, imaging tests, and your symptoms. Your health care provider may recommend one or more types of treatment based on the stage of your cancer. Consider joining a support group. This may help you learn to deal with the stress of having bladder cancer. This information is not intended to replace advice given to you by your health care provider. Make sure you discuss any questions you have with your health care provider. Document Revised: 04/29/2022 Document Reviewed: 04/29/2022 [facility] Patient Education 2023 [employer]. Follow Up Care 09/23/2024 16:12:37 With:[facility] Address: [address] 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 The bladder is the organ that holds urine. Two tubes (ureters) carry urine from the kidneys to the bladder. The bladder wall is made of layers of tissue. Cancer that spreads through these layers of the bladder wall becomes more difficult to treat. What increases the risk? The following factors may make you more likely to develop this condition: ??? Smoking. ??? Working where there are risks (occupational exposures), such as working with rubber, leather, clothing fabric, dyes, chemicals, or paint. ??? Being 55 years of age or older. ??? Being male. ??? Having long-term bladder inflammation. ??? Having a history of cancer. This includes: ? A family history of bladder cancer. ? Having had bladder cancer before. ? Having had certain treatments for cancer before, such as: ? Medicines to kill cancer cells (chemotherapy). ? Strong X-ray beams or high-energy capsules to kill cancer cells and shrink tumors (radiation therapy). ??? Having been exposed to arsenic. This is a poisonous substance. What are the signs or symptoms? Early symptoms of this condition include: ??? Blood in your urine. ??? Pain when urinating. ??? Infections of your urinary system (urinary tract infections or UTIs) that happen often. ??? Having to urinate sooner or more often than normal. Late symptoms of this condition include: ??? Not being able to urinate. ??? Pain on one side of your lower back. ??? Loss of appetite. ??? Weight loss. ??? Tiredness (fatigue). ??? Swelling in your feet. ??? Bone pain. How is this diagnosed? This condition is diagnosed based on: ??? Your medical history. ??? A physical exam. ??? Lab tests, such as urine tests. ??? Imaging tests. ??? Your symptoms. You may also have other tests or procedures, such as: ??? A cystoscopy. This involves putting a narrow tube into your urethra. The urethra is the organ that carries urine from your bladder to the outside of your body. This procedure is done to view the lining of your bladder for tumors. ??? A biopsy. This involves removing a tissue sample to look at under a microscope to check for cancer. Blood tests or imaging tests may be needed. These show how far into the bladder wall cancer has grown, and if cancer has spread to any other parts of your body. Tests may include: ??? CT scan. ??? MRI. ??? Bone scan. ??? X-ray. How is this treated? Your health care provider may recommend one or more types of treatment based on the stage of your cancer. The most common treatments are: ??? Surgery to remove the cancer. Types of surgeries include: ? Removing a tumor on the inside wall of the bladder (transurethral resection). ? Removing the bladder (cystectomy). ??? Radiation therapy. This is often combined with chemotherapy. ??? Chemotherapy. ??? Immunotherapy. This uses medicines to help your body's disease-fighting system (immune system) destroy cancer cells. Follow these instructions at home: ??? Take ppwu-ylb-kfkruga and prescription medicines only as told by your health care provider. ??? If you were prescribed an antibiotic medicine, take it as told by your health care provider. Do not stop using the antibiotic even if you start to feel better. ??? Eat a healthy diet. Some treatments might affect your appetite. ??? Do not use any products that contain nicotine or tobacco. These products include cigarettes, chewing tobacco, and vaping devices, such as e-cigarettes. If you need help quitting, ask your health care provider. ??? Consider joining a support group. This may help you learn to deal with the stress of having bladder cancer. ??? Tell your cancer care team if you develop side effects. Your team may be able to recommend ways to get relief. ??? Keep all follow-up visits. This is important. Where to find more information ??? [place] [employer] (ACS): cancer.org ??? National Cancer [place] (NCI): cancer.gov Contact a health care provider if: ??? You have symptoms of a UTI. These include: ? Fever. ? Chills. ? Weakness. ? Muscle aches. ? Pain in your abdomen. ? Urge to urinate that is stronger and happens more often than normal. ? Burning in the bladder or urethra when you urinate. Get help right away if: ??? There is blood in your urine. ??? You cannot urinate. ??? You have severe pain or other symptoms that do not go away. Summary ??? Bladder cancer is a condition where tumors grow in the bladder. ??? Diagnosis is based on your medical history, a physical exam, lab tests, imaging tests, and your symptoms. ??? Your health care provider may recommend one or more types of treatment based on the stage of your cancer. ??? Consider joining a support group. This may help you learn to deal with the stress of having bladder cancer. This information is n (more content not included)... [facility] 11-08-2024 Hospital Discharge instructions Patient Education 11/08/2024 13:14:51 Bladder Cancer Bladder Cancer Bladder cancer is a condition where abnormal tissue (a tumor) grows in the bladder. The bladder is the organ that holds urine. Two tubes (ureters) carry urine from the kidneys to the bladder. The bladder wall is made of layers of tissue. Cancer that spreads through these layers of the bladder wall becomes more difficult to treat. What increases the risk? The following factors may make you more likely to develop this condition: Smoking. Working where there are risks (occupational exposures), such as working with rubber, leather, clothing fabric, dyes, chemicals, or paint. Being 55 years of age or older. Being male. Having long-term bladder inflammation. Having a history of cancer. This includes: ?A family history of bladder cancer. ?Having had bladder cancer before. ?Having had certain treatments for cancer before, such as: ?Medicines to kill cancer cells (chemotherapy). ?Strong X-ray beams or high-energy capsules to kill cancer cells and shrink tumors (radiation therapy). Having been exposed to arsenic. This is a poisonous substance. What are the signs or symptoms? Early symptoms of this condition include: Blood in your urine. Pain when urinating. Infections of your urinary system (urinary tract infections or UTIs) that happen often. Having to urinate sooner or more often than normal. Late symptoms of this condition include: Not being able to urinate. Pain on one side of your lower back. Loss of appetite. Weight loss. Tiredness (fatigue). Swelling in your feet. Bone pain. How is this diagnosed? This condition is diagnosed based on: Your medical history. A physical exam. Lab tests, such as urine tests. Imaging tests. Your symptoms. You may also have other tests or procedures, such as: A cystoscopy. This involves putting a narrow tube into your urethra. The urethra is the organ that carries urine from your bladder to the outside of your body. This procedure is done to view the lining of your bladder for tumors. A biopsy. This involves removing a tissue sample to look at under a microscope to check for cancer. Blood tests or imaging tests may be needed. These show how far into the bladder wall cancer has grown, and if cancer has spread to any other parts of your body. Tests may include: CT scan. MRI. Bone scan. X-ray. How is this treated? Your health care provider may recommend one or more types of treatment based on the stage of your cancer. The most common treatments are: Surgery to remove the cancer. Types of surgeries include: ?Removing a tumor on the inside wall of the bladder (transurethral resection). ?Removing the bladder (cystectomy). Radiation therapy. This is often combined with chemotherapy. Chemotherapy. Immunotherapy. This uses medicines to help your body's disease-fighting system (immune system) destroy cancer cells. Follow these instructions at home: Take ravc-eyn-qzzfjpw and prescription medicines only as told by your health care provider. If you were prescribed an antibiotic medicine, take it as told by your health care provider. Do not stop using the antibiotic even if you start to feel better. Eat a healthy diet. Some treatments might affect your appetite. Do not use any products that contain nicotine or tobacco. These products include cigarettes, chewing tobacco, and vaping devices, such as e-cigarettes. If you need help quitting, ask your health care provider. Consider joining a support group. This may help you learn to deal with the stress of having bladder cancer. Tell your cancer care team if you develop side effects. Your team may be able to recommend ways to get relief. Keep all follow-up visits. This is important. Where to find more information [employer] [employer] (ACS): cancer.org National Cancer [place] (NCI): cancer.gov Contact a health care provider if: You have symptoms of a UTI. These include: ?Fever. ?Chills. ?Weakness. ?Muscle aches. ?Pain in your abdomen. ?Urge to urinate that is stronger and happens more often than normal. ?Burning in the bladder or urethra when you urinate. Get help right away if: There is blood in your urine. You cannot urinate. You have severe pain or other symptoms that do not go away. Summary Bladder cancer is a condition where tumors grow in the bladder. Diagnosis is based on your medical history, a physical exam, lab tests, imaging tests, and your symptoms. Your health care provider may recommend one or more types of treatment based on the stage of your cancer. Consider joining a support group. This may help you learn to deal with the stress of having bladder cancer. This information is not intended to replace advice given to you by your health care provider. Make sure you discuss any questions you have with your health care provider. Document Revised: 04/29/2022 Document Reviewed: 04/29/2022 [facility] Patient Education 2023 [employer]. Follow Up Care 09/23/2024 16:10:34 With:RADHA WEATHERS, KIMI Baires, URL Address: [address] [place] [address] When:Within 1 Week(s) [facility] 11-08-2024 Note Patient Education Oncology Bladder Cancer Bladder cancer is a condition where abnormal tissue (a tumor) grows in the bladder. The bladder is the organ that holds urine. Two tubes (ureters) carry urine from the kidneys to the bladder. The bladder wall is made of layers of tissue. Cancer that spreads through these layers of the bladder wall becomes more difficult to treat. What increases the risk? The following factors may make you more likely to develop this condition: ??? Smoking. ??? Working where there are risks (occupational exposures), such as working with rubber, leather, clothing fabric, dyes, chemicals, or paint. ??? Being 55 years of age or older. ??? Being male. ??? Having long-term bladder inflammation. ??? Having a history of cancer. This includes: ? A family history of bladder cancer. ? Having had bladder cancer before. ? Having had certain treatments for cancer before, such as: ? Medicines to kill cancer cells (chemotherapy). ? Strong X-ray beams or high-energy capsules to kill cancer cells and shrink tumors (radiation therapy). ??? Having been exposed to arsenic. This is a poisonous substance. What are the signs or symptoms? Early symptoms of this condition include: ??? Blood in your urine. ??? Pain when urinating. ??? Infections of your urinary system (urinary tract infections or UTIs) that happen often. ??? Having to urinate sooner or more often than normal. Late symptoms of this condition include: ??? Not being able to urinate. ??? Pain on one side of your lower back. ??? Loss of appetite. ??? Weight loss. ??? Tiredness (fatigue). ??? Swelling in your feet. ??? Bone pain. How is this diagnosed? This condition is diagnosed based on: ??? Your medical history. ??? A physical exam. ??? Lab tests, such as urine tests. ??? Imaging tests. ??? Your symptoms. You may also have other tests or procedures, such as: ??? A cystoscopy. This involves putting a narrow tube into your urethra. The urethra is the organ that carries urine from your bladder to the outside of your body. This procedure is done to view the lining of your bladder for tumors. ??? A biopsy. This involves removing a tissue sample to look at under a microscope to check for cancer. Blood tests or imaging tests may be needed. These show how far into the bladder wall cancer has grown, and if cancer has spread to any other parts of your body. Tests may include: ??? CT scan. ??? MRI. ??? Bone scan. ??? X-ray. How is this treated? Your health care provider may recommend one or more types of treatment based on the stage of your cancer. The most common treatments are: ??? Surgery to remove the cancer. Types of surgeries include: ? Removing a tumor on the inside wall of the bladder (transurethral resection). ? Removing the bladder (cystectomy). ??? Radiation therapy. This is often combined with chemotherapy. ??? Chemotherapy. ??? Immunotherapy. This uses medicines to help your body's disease-fighting system (immune system) destroy cancer cells. Follow these instructions at home: ??? Take mysj-fpz-pscvcmb and prescription medicines only as told by your health care provider. ??? If you were prescribed an antibiotic medicine, take it as told by your health care provider. Do not stop using the antibiotic even if you start to feel better. ??? Eat a healthy diet. Some treatments might affect your appetite. ??? Do not use any products that contain nicotine or tobacco. These products include cigarettes, chewing tobacco, and vaping devices, such as e-cigarettes. If you need help quitting, ask your health care provider. ??? Consider joining a support group. This may help you learn to deal with the stress of having bladder cancer. ??? Tell your cancer care team if you develop side effects. Your team may be able to recommend ways to get relief. ??? Keep all follow-up visits. This is important. Where to find more information ??? [employer] [employer] (ACS): cancer.org ??? National Cancer [place] (NCI): cancer.gov Contact a health care provider if: ??? You have symptoms of a UTI. These include: ? Fever. ? Chills. ? Weakness. ? Muscle aches. ? Pain in your abdomen. ? Urge to urinate that is stronger and happens more often than normal. ? Burning in the bladder or urethra when you urinate. Get help right away if: ??? There is blood in your urine. ??? You cannot urinate. ??? You have severe pain or other symptoms that do not go away. Summary ??? Bladder cancer is a condition where tumors grow in the bladder. ??? Diagnosis is based on your medical history, a physical exam, lab tests, imaging tests, and your symptoms. ??? Your health care provider may recommend one or more types of treatment based on the stage of your cancer. ??? Consider joining a support group. This may help you learn to deal with the stress of having bladder cancer. This information is n (more content not included)... [facility] 11-01-2024 Hospital Discharge instructions Patient Education 11/01/2024 13:28:03 Bladder Cancer Bladder Cancer Bladder cancer is a condition where abnormal tissue (a tumor) grows in the bladder. The bladder is the organ that holds urine. Two tubes (ureters) carry urine from the kidneys to the bladder. The bladder wall is made of layers of tissue. Cancer that spreads through these layers of the bladder wall becomes more difficult to treat. What increases the risk? The following factors may make you more likely to develop this condition: Smoking. Working where there are risks (occupational exposures), such as working with rubber, leather, clothing fabric, dyes, chemicals, or paint. Being 55 years of age or older. Being male. Having long-term bladder inflammation. Having a history of cancer. This includes: ?A family history of bladder cancer. ?Having had bladder cancer before. ?Having had certain treatments for cancer before, such as: ?Medicines to kill cancer cells (chemotherapy). ?Strong X-ray beams or high-energy capsules to kill cancer cells and shrink tumors (radiation therapy). Having been exposed to arsenic. This is a poisonous substance. What are the signs or symptoms? Early symptoms of this condition include: Blood in your urine. Pain when urinating. Infections of your urinary system (urinary tract infections or UTIs) that happen often. Having to urinate sooner or more often than normal. Late symptoms of this condition include: Not being able to urinate. Pain on one side of your lower back. Loss of appetite. Weight loss. Tiredness (fatigue). Swelling in your feet. Bone pain. How is this diagnosed? This condition is diagnosed based on: Your medical history. A physical exam. Lab tests, such as urine tests. Imaging tests. Your symptoms. You may also have other tests or procedures, such as: A cystoscopy. This involves putting a narrow tube into your urethra. The urethra is the organ that carries urine from your bladder to the outside of your body. This procedure is done to view the lining of your bladder for tumors. A biopsy. This involves removing a tissue sample to look at under a microscope to check for cancer. Blood tests or imaging tests may be needed. These show how far into the bladder wall cancer has grown, and if cancer has spread to any other parts of your body. Tests may include: CT scan. MRI. Bone scan. X-ray. How is this treated? Your health care provider may recommend one or more types of treatment based on the stage of your cancer. The most common treatments are: Surgery to remove the cancer. Types of surgeries include: ?Removing a tumor on the inside wall of the bladder (transurethral resection). ?Removing the bladder (cystectomy). Radiation therapy. This is often combined with chemotherapy. Chemotherapy. Immunotherapy. This uses medicines to help your body's disease-fighting system (immune system) destroy cancer cells. Follow these instructions at home: Take zswg-eqr-anqyyzm and prescription medicines only as told by your health care provider. If you were prescribed an antibiotic medicine, take it as told by your health care provider. Do not stop using the antibiotic even if you start to feel better. Eat a healthy diet. Some treatments might affect your appetite. Do not use any products that contain nicotine or tobacco. These products include cigarettes, chewing tobacco, and vaping devices, such as e-cigarettes. If you need help quitting, ask your health care provider. Consider joining a support group. This may help you learn to deal with the stress of having bladder cancer. Tell your cancer care team if you develop side effects. Your team may be able to recommend ways to get relief. Keep all follow-up visits. This is important. Where to find more information [employer] [employer] (ACS): cancer.org National Cancer [place] (NCI): cancer.gov Contact a health care provider if: You have symptoms of a UTI. These include: ?Fever. ?Chills. ?Weakness. ?Muscle aches. ?Pain in your abdomen. ?Urge to urinate that is stronger and happens more often than normal. ?Burning in the bladder or urethra when you urinate. Get help right away if: There is blood in your urine. You cannot urinate. You have severe pain or other symptoms that do not go away. Summary Bladder cancer is a condition where tumors grow in the bladder. Diagnosis is based on your medical history, a physical exam, lab tests, imaging tests, and your symptoms. Your health care provider may recommend one or more types of treatment based on the stage of your cancer. Consider joining a support group. This may help you learn to deal with the stress of having bladder cancer. This information is not intended to replace advice given to you by your health care provider. Make sure you discuss any questions you have with your health care provider. Document Revised: 04/29/2022 Document Reviewed: 04/29/2022 [facility] Patient Education 2023 [employer]. Follow Up Care 09/23/2024 16:08:43 With:RADHA WEATHERS, KIMI Baires, URL Address: [address] [place] [address] When:Within 1 Week(s) [facility] 11-01-2024 Note Patient Education Oncology Bladder Cancer Bladder cancer is a condition where abnormal tissue (a tumor) grows in the bladder. The bladder is the organ that holds urine. Two tubes (ureters) carry urine from the kidneys to the bladder. The bladder wall is made of layers of tissue. Cancer that spreads through these layers of the bladder wall becomes more difficult to treat. What increases the risk? The following factors may make you more likely to develop this condition: ??? Smoking. ??? Working where there are risks (occupational exposures), such as working with rubber, leather, clothing fabric, dyes, chemicals, or paint. ??? Being 55 years of age or older. ??? Being male. ??? Having long-term bladder inflammation. ??? Having a history of cancer. This includes: ? A family history of bladder cancer. ? Having had bladder cancer before. ? Having had certain treatments for cancer before, such as: ? Medicines to kill cancer cells (chemotherapy). ? Strong X-ray beams or high-energy capsules to kill cancer cells and shrink tumors (radiation therapy). ??? Having been exposed to arsenic. This is a poisonous substance. What are the signs or symptoms? Early symptoms of this condition include: ??? Blood in your urine. ??? Pain when urinating. ??? Infections of your urinary system (urinary tract infections or UTIs) that happen often. ??? Having to urinate sooner or more often than normal. Late symptoms of this condition include: ??? Not being able to urinate. ??? Pain on one side of your lower back. ??? Loss of appetite. ??? Weight loss. ??? Tiredness (fatigue). ??? Swelling in your feet. ??? Bone pain. How is this diagnosed? This condition is diagnosed based on: ??? Your medical history. ??? A physical exam. ??? Lab tests, such as urine tests. ??? Imaging tests. ??? Your symptoms. You may also have other tests or procedures, such as: ??? A cystoscopy. This involves putting a narrow tube into your urethra. The urethra is the organ that carries urine from your bladder to the outside of your body. This procedure is done to view the lining of your bladder for tumors. ??? A biopsy. This involves removing a tissue sample to look at under a microscope to check for cancer. Blood tests or imaging tests may be needed. These show how far into the bladder wall cancer has grown, and if cancer has spread to any other parts of your body. Tests may include: ??? CT scan. ??? MRI. ??? Bone scan. ??? X-ray. How is this treated? Your health care provider may recommend one or more types of treatment based on the stage of your cancer. The most common treatments are: ??? Surgery to remove the cancer. Types of surgeries include: ? Removing a tumor on the inside wall of the bladder (transurethral resection). ? Removing the bladder (cystectomy). ??? Radiation therapy. This is often combined with chemotherapy. ??? Chemotherapy. ??? Immunotherapy. This uses medicines to help your body's disease-fighting system (immune system) destroy cancer cells. Follow these instructions at home: ??? Take lgjo-ilj-datdfct and prescription medicines only as told by your health care provider. ??? If you were prescribed an antibiotic medicine, take it as told by your health care provider. Do not stop using the antibiotic even if you start to feel better. ??? Eat a healthy diet. Some treatments might affect your appetite. ??? Do not use any products that contain nicotine or tobacco. These products include cigarettes, chewing tobacco, and vaping devices, such as e-cigarettes. If you need help quitting, ask your health care provider. ??? Consider joining a support group. This may help you learn to deal with the stress of having bladder cancer. ??? Tell your cancer care team if you develop side effects. Your team may be able to recommend ways to get relief. ??? Keep all follow-up visits. This is important. Where to find more information ??? [employer] [employer] (ACS): cancer.org ??? National Cancer [place] (NCI): cancer.gov Contact a health care provider if: ??? You have symptoms of a UTI. These include: ? Fever. ? Chills. ? Weakness. ? Muscle aches. ? Pain in your abdomen. ? Urge to urinate that is stronger and happens more often than normal. ? Burning in the bladder or urethra when you urinate. Get help right away if: ??? There is blood in your urine. ??? You cannot urinate. ??? You have severe pain or other symptoms that do not go away. Summary ??? Bladder cancer is a condition where tumors grow in the bladder. ??? Diagnosis is based on your medical history, a physical exam, lab tests, imaging tests, and your symptoms. ??? Your health care provider may recommend one or more types of treatment based on the stage of your cancer. ??? Consider joining a support group. This may help you learn to deal with the stress of having bladder cancer. This information is n (more content not included)... [facility] 10-28-2024 History of Present illness Narrative Images from the original note were not included. Chief Complaint Patient presents with Postherpetic neuralgia Subjective Jam Ramirez JrDoug is a 84 y.o. male. History of Present Illness The patient presents today for follow-up. He is accompanied by his , Carissa. He admits to not taking his gabapentin as often recently. He is taking gabapentin 100 mg daily as needed. He states he experienced unfavorable side effects when on a higher dose (agitation noticed by , mild balance difficulty, fatigue). He is doing better since the dose reduction. He denies any falls since the prior neurology appointment. The patient continues to have intermittent pain in the left forehead (V1 distribution). This occurs more often in the evenings. He describes it as sharp. Severity is 6/10 on average. He states he can experience itching in the same location. He denies any further accompanying symptoms. He denies facial weakness. He continues to take oxcarbazepine 300 mg twice a day. He denies any other concerns. The patient follows with urology (Dr. Souza) for bladder cancer. He states they are treating this with BCG treatment. Review of Systems Constitutional: Negative for appetite change, chills, fatigue, fever and unexpected weight change. HENT: Negative for trouble swallowing and voice change. Eyes: Negative for visual change, double vision or loss of vision Respiratory: Positive for shortness of breath (chronic and intermittent; history of asthma and COPD). Negative for cough and wheezing. Cardiovascular: Negative for chest pain and palpitations. Gastrointestinal: Negative for abdominal pain, blood in stool, nausea and vomiting. Musculoskeletal: Negative for arthralgias, gait problem and myalgias. Skin: Negative for rash and wound. Neurological: Positive for headaches. Negative for dizziness, tremors, seizures, syncope, facial asymmetry, speech difficulty, weakness, light-headedness and numbness. Positive for head/facial pain and paresthesias Psychiatric/Behavioral: Negative for confusion, hallucinations and suicidal ideas. The patient is not nervous/anxious. 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) Dyslipidemia ([facility]) Former smoker HARISH (generalized anxiety disorder) ([facility]) Gastroesophageal reflux disease History of hernia repair Hypothyroidism, adult ([facility]) Insomnia, persistent Post herpetic neuralgia ([facility]) Seasonal allergic rhinitis due to pollen Type 2 diabetes mellitus with hyperglycemia, without long-term current use of insulin ([facility]) Past Surgical History: Procedure Laterality Date AMPUTATION [...] date: 1949 Quit date: 1968 Years since quittin.4 Smokeless tobacco: Never Substance Use Topics Alcohol use: Not Currently Allergies: Codeine Vitals: 10/28/24 1421 BP: 132/78 Pulse: 57 SpO2: 98% Body mass index is 25.57 kg/m . Weight: 178 lb 3.2 oz Neurologic exam: Mental status and general appearance: Awake and alert with unlabored respirations. Oriented to person, place, and time. Recent and remote memory are intact. Speech is clear and fluent without aphasia. Speech is non-dysarthric. Attention and concentration are normal. Fund of knowledge is appropriate for level of education. Pleasant. No visible rash. Cranial nerves: CN II: Visual acuity is normal. Visual bar[place] full to confrontation. CN III, IV, : Pupils are equal, round, and reactive to light. Extraocular movements intact. No ptosis present. CN V: Facial sensation is reduced in the left V1 distribution; otherwise normal. CN VII: Full and symmetric facial movement. CN VIII: Hearing is normal to finger rub bilaterally. CN IX and X: Palate elevates symmetrically. CN XI: Shoulder shrug is normal bilaterally. CN XII: Tongue is midline without atrophy or fasciculation. Motor: RUE strength deltoid , biceps , triceps , wrist extensors , wrist flexor , and car mechanic helper strength 5/5. LUE strength deltoid , biceps , triceps , wrist extensors , wrist flexor , and car mechanic helper strength 5/5. RLE strength iliopsoas, quadriceps, tibialis anterior, and plantar flexion strength 5/5. LLE strength iliopsoas, quadriceps, tibialis anterior, and plantar flexion strength 5/5. Tone and bulk are normal. Sensory: Sensation is intact to light touch throughout all four extremities. Sensation is intact to temperature in all extremities. Reflexes: RUE biceps reflex 1+ , brachioradialis reflex 1+. LUE biceps reflex 1+ , brachioradialis reflex 1+. RLE knee reflex 0. LLE knee reflex 0. Coordination: [id number] testing normal. Rapid alternating movements are normal. Gait: Normal. Review and summary of old records: CT of the brain without contrast on 08/08/2014: No acute intracranial abnormality. Age-related atrophy with compensatory ventricular enlargement. Chronic microvascular ischemic disease noted. Assessment/Plan Diagnoses and all orders for this visit: Post herpetic neuralgia (CMS/HCC) Mr. Ramirez is an 84-year-old male who I believe has post herpetic neuralgia. The patient reports a history of acute herpes zoster virus reactivation in November 2022. He continues to experience intermittent, sharp nerve pains in the left V1 distribution since that time. No rash is observed on clinical exam today, and there is no facial weakness. Gabapentin has provided benefit but caused adverse effects (agitation, imbalance, and fatigue) on 1 capsule PO TID. He is now taking 1 capsule nightly PRN and reports doing well on this. He states his symptoms are tolerable on the current regimen. He does not wish to make any changes to medications today. PLAN: - Continue gabapentin 100 mg capsule - He is only taking 1 capsule by mouth daily at bedtime as needed recently, and I am okay with this. [place]AR[place] reviewed - The patient is also taking oxcarbazepine 300 mg by mouth three times a day (managed by outside provider). Sodium level on 09/27/2024 was within normal limits at 139 Diagnosis and treatment options discussed in detail. All questions answered. The patient verbalizes understanding and is agreeable to the plan. Discussion in layman's terms. Follow up in the office within 3 to 4 months; sooner if needed for new or worsening symptoms. Layla Rodriguez NP [facility] Advanced Neurology documented in this encounter [facility] 10-26-2024 Hospital Discharge instructions Patient Education 10/26/2024 12:10:45 Bladder Cancer Bladder Cancer Bladder cancer is a condition where abnormal tissue (a tumor) grows in the bladder. The bladder is the organ that holds urine. Two tubes (ureters) carry urine from the kidneys to the bladder. The bladder wall is made of layers of tissue. Cancer that spreads through these layers of the bladder wall becomes more difficult to treat. What increases the risk? The following factors may make you more likely to develop this condition: Smoking. Working where there are risks (occupational exposures), such as working with rubber, leather, clothing fabric, dyes, chemicals, or paint. Being 55 years of age or older. Being male. Having long-term bladder inflammation. Having a history of cancer. This includes: ?A family history of bladder cancer. ?Having had bladder cancer before. ?Having had certain treatments for cancer before, such as: ?Medicines to kill cancer cells (chemotherapy). ?Strong X-ray beams or high-energy capsules to kill cancer cells and shrink tumors (radiation therapy). Having been exposed to arsenic. This is a poisonous substance. What are the signs or symptoms? Early symptoms of this condition include: Blood in your urine. Pain when urinating. Infections of your urinary system (urinary tract infections or UTIs) that happen often. Having to urinate sooner or more often than normal. Late symptoms of this condition include: Not being able to urinate. Pain on one side of your lower back. Loss of appetite. Weight loss. Tiredness (fatigue). Swelling in your feet. Bone pain. How is this diagnosed? This condition is diagnosed based on: Your medical history. A physical exam. Lab tests, such as urine tests. Imaging tests. Your symptoms. You may also have other tests or procedures, such as: A cystoscopy. This involves putting a narrow tube into your urethra. The urethra is the organ that carries urine from your bladder to the outside of your body. This procedure is done to view the lining of your bladder for tumors. A biopsy. This involves removing a tissue sample to look at under a microscope to check for cancer. Blood tests or imaging tests may be needed. These show how far into the bladder wall cancer has grown, and if cancer has spread to any other parts of your body. Tests may include: CT scan. MRI. Bone scan. X-ray. How is this treated? Your health care provider may recommend one or more types of treatment based on the stage of your cancer. The most common treatments are: Surgery to remove the cancer. Types of surgeries include: ?Removing a tumor on the inside wall of the bladder (transurethral resection). ?Removing the bladder (cystectomy). Radiation therapy. This is often combined with chemotherapy. Chemotherapy. Immunotherapy. This uses medicines to help your body's disease-fighting system (immune system) destroy cancer cells. Follow these instructions at home: Take hnif-leh-sdmbaoj and prescription medicines only as told by your health care provider. If you were prescribed an antibiotic medicine, take it as told by your health care provider. Do not stop using the antibiotic even if you start to feel better. Eat a healthy diet. Some treatments might affect your appetite. Do not use any products that contain nicotine or tobacco. These products include cigarettes, chewing tobacco, and vaping devices, such as e-cigarettes. If you need help quitting, ask your health care provider. Consider joining a support group. This may help you learn to deal with the stress of having bladder cancer. Tell your cancer care team if you develop side effects. Your team may be able to recommend ways to get relief. Keep all follow-up visits. This is important. Where to find more information [employer] [employer] (ACS): cancer.org National Cancer [place] (NCI): cancer.gov Contact a health care provider if: You have symptoms of a UTI. These include: ?Fever. ?Chills. ?Weakness. ?Muscle aches. ?Pain in your abdomen. ?Urge to urinate that is stronger and happens more often than normal. ?Burning in the bladder or urethra when you urinate. Get help right away if: There is blood in your urine. You cannot urinate. You have severe pain or other symptoms that do not go away. Summary Bladder cancer is a condition where tumors grow in the bladder. Diagnosis is based on your medical history, a physical exam, lab tests, imaging tests, and your symptoms. Your health care provider may recommend one or more types of treatment based on the stage of your cancer. Consider joining a support group. This may help you learn to deal with the stress of having bladder cancer. This information is not intended to replace advice given to you by your health care provider. Make sure you discuss any questions you have with your health care provider. Document Revised: 04/29/2022 Document Reviewed: 04/29/2022 [facility] Patient Education 2023 [employer]. Follow Up Care 10/18/2024 14:00:53 With:RADHA WEATHERS, KIMI Baires, URL Address: [facility] [place] [address] When:Within 1 Week(s) [facility] 10-26-2024 Note Patient Education Oncology Bladder Cancer Bladder cancer is a condition where abnormal tissue (a tumor) grows in the bladder. The bladder is the organ that holds urine. Two tubes (ureters) carry urine from the kidneys to the bladder. The bladder wall is made of layers of tissue. Cancer that spreads through these layers of the bladder wall becomes more difficult to treat. What increases the risk? The following factors may make you more likely to develop this condition: ??? Smoking. ??? Working where there are risks (occupational exposures), such as working with rubber, leather, clothing fabric, dyes, chemicals, or paint. ??? Being 55 years of age or older. ??? Being male. ??? Having long-term bladder inflammation. ??? Having a history of cancer. This includes: ? A family history of bladder cancer. ? Having had bladder cancer before. ? Having had certain treatments for cancer before, such as: ? Medicines to kill cancer cells (chemotherapy). ? Strong X-ray beams or high-energy capsules to kill cancer cells and shrink tumors (radiation therapy). ??? Having been exposed to arsenic. This is a poisonous substance. What are the signs or symptoms? Early symptoms of this condition include: ??? Blood in your urine. ??? Pain when urinating. ??? Infections of your urinary system (urinary tract infections or UTIs) that happen often. ??? Having to urinate sooner or more often than normal. Late symptoms of this condition include: ??? Not being able to urinate. ??? Pain on one side of your lower back. ??? Loss of appetite. ??? Weight loss. ??? Tiredness (fatigue). ??? Swelling in your feet. ??? Bone pain. How is this diagnosed? This condition is diagnosed based on: ??? Your medical history. ??? A physical exam. ??? Lab tests, such as urine tests. ??? Imaging tests. ??? Your symptoms. You may also have other tests or procedures, such as: ??? A cystoscopy. This involves putting a narrow tube into your urethra. The urethra is the organ that carries urine from your bladder to the outside of your body. This procedure is done to view the lining of your bladder for tumors. ??? A biopsy. This involves removing a tissue sample to look at under a microscope to check for cancer. Blood tests or imaging tests may be needed. These show how far into the bladder wall cancer has grown, and if cancer has spread to any other parts of your body. Tests may include: ??? CT scan. ??? MRI. ??? Bone scan. ??? X-ray. How is this treated? Your health care provider may recommend one or more types of treatment based on the stage of your cancer. The most common treatments are: ??? Surgery to remove the cancer. Types of surgeries include: ? Removing a tumor on the inside wall of the bladder (transurethral resection). ? Removing the bladder (cystectomy). ??? Radiation therapy. This is often combined with chemotherapy. ??? Chemotherapy. ??? Immunotherapy. This uses medicines to help your body's disease-fighting system (immune system) destroy cancer cells. Follow these instructions at home: ??? Take gbtn-zwp-ccsorwa and prescription medicines only as told by your health care provider. ??? If you were prescribed an antibiotic medicine, take it as told by your health care provider. Do not stop using the antibiotic even if you start to feel better. ??? Eat a healthy diet. Some treatments might affect your appetite. ??? Do not use any products that contain nicotine or tobacco. These products include cigarettes, chewing tobacco, and vaping devices, such as e-cigarettes. If you need help quitting, ask your health care provider. ??? Consider joining a support group. This may help you learn to deal with the stress of having bladder cancer. ??? Tell your cancer care team if you develop side effects. Your team may be able to recommend ways to get relief. ??? Keep all follow-up visits. This is important. Where to find more information ??? [employer] (ACS): cancer.org ??? National Cancer [place] (NCI): cancer.gov Contact a health care provider if: ??? You have symptoms of a UTI. These include: ? Fever. ? Chills. ? Weakness. ? Muscle aches. ? Pain in your abdomen. ? Urge to urinate that is stronger and happens more often than normal. ? Burning in the bladder or urethra when you urinate. Get help right away if: ??? There is blood in your urine. ??? You cannot urinate. ??? You have severe pain or other symptoms that do not go away. Summary ??? Bladder cancer is a condition where tumors grow in the bladder. ??? Diagnosis is based on your medical history, a physical exam, lab tests, imaging tests, and your symptoms. ??? Your health care provider may recommend one or more types of treatment based on the stage of your cancer. ??? Consider joining a support group. This may help you learn to deal with the stress of having bladder cancer. This information is n (more content not included)... [facility] 10-18-2024 Hospital Discharge instructions Patient Education 10/18/2024 14:02:19 Bladder Cancer Bladder Cancer Bladder cancer is a condition where abnormal tissue (a tumor) grows in the bladder. The bladder is the organ that holds urine. Two tubes (ureters) carry urine from the kidneys to the bladder. The bladder wall is made of layers of tissue. Cancer that spreads through these layers of the bladder wall becomes more difficult to treat. What increases the risk? The following factors may make you more likely to develop this condition: Smoking. Working where there are risks (occupational exposures), such as working with rubber, leather, clothing fabric, dyes, chemicals, or paint. Being 55 years of age or older. Being male. Having long-term bladder inflammation. Having a history of cancer. This includes: ?A family history of bladder cancer. ?Having had bladder cancer before. ?Having had certain treatments for cancer before, such as: ?Medicines to kill cancer cells (chemotherapy). ?Strong X-ray beams or high-energy capsules to kill cancer cells and shrink tumors (radiation therapy). Having been exposed to arsenic. This is a poisonous substance. What are the signs or symptoms? Early symptoms of this condition include: Blood in your urine. Pain when urinating. Infections of your urinary system (urinary tract infections or UTIs) that happen often. Having to urinate sooner or more often than normal. Late symptoms of this condition include: Not being able to urinate. Pain on one side of your lower back. Loss of appetite. Weight loss. Tiredness (fatigue). Swelling in your feet. Bone pain. How is this diagnosed? This condition is diagnosed based on: Your medical history. A physical exam. Lab tests, such as urine tests. Imaging tests. Your symptoms. You may also have other tests or procedures, such as: A cystoscopy. This involves putting a narrow tube into your urethra. The urethra is the organ that carries urine from your bladder to the outside of your body. This procedure is done to view the lining of your bladder for tumors. A biopsy. This involves removing a tissue sample to look at under a microscope to check for cancer. Blood tests or imaging tests may be needed. These show how far into the bladder wall cancer has grown, and if cancer has spread to any other parts of your body. Tests may include: CT scan. MRI. Bone scan. X-ray. How is this treated? Your health care provider may recommend one or more types of treatment based on the stage of your cancer. The most common treatments are: Surgery to remove the cancer. Types of surgeries include: ?Removing a tumor on the inside wall of the bladder (transurethral resection). ?Removing the bladder (cystectomy). Radiation therapy. This is often combined with chemotherapy. Chemotherapy. Immunotherapy. This uses medicines to help your body's disease-fighting system (immune system) destroy cancer cells. Follow these instructions at home: Take hnha-sjg-thrcejh and prescription medicines only as told by your health care provider. If you were prescribed an antibiotic medicine, take it as told by your health care provider. Do not stop using the antibiotic even if you start to feel better. Eat a healthy diet. Some treatments might affect your appetite. Do not use any products that contain nicotine or tobacco. These products include cigarettes, chewing tobacco, and vaping devices, such as e-cigarettes. If you need help quitting, ask your health care provider. Consider joining a support group. This may help you learn to deal with the stress of having bladder cancer. Tell your cancer care team if you develop side effects. Your team may be able to recommend ways to get relief. Keep all follow-up visits. This is important. Where to find more information [employer] [employer] (ACS): cancer.org National Cancer [place] (NCI): cancer.gov Contact a health care provider if: You have symptoms of a UTI. These include: ?Fever. ?Chills. ?Weakness. ?Muscle aches. ?Pain in your abdomen. ?Urge to urinate that is stronger and happens more often than normal. ?Burning in the bladder or urethra when you urinate. Get help right away if: There is blood in your urine. You cannot urinate. You have severe pain or other symptoms that do not go away. Summary Bladder cancer is a condition where tumors grow in the bladder. Diagnosis is based on your medical history, a physical exam, lab tests, imaging tests, and your symptoms. Your health care provider may recommend one or more types of treatment based on the stage of your cancer. Consider joining a support group. This may help you learn to deal with the stress of having bladder cancer. This information is not intended to replace advice given to you by your health care provider. Make sure you discuss any questions you have with your health care provider. Document Revised: 04/29/2022 Document Reviewed: 04/29/2022 [facility] Patient Education 2023 [employer]. Follow Up Care 09/23/2024 16:06:47 With:RADHA WEATHERS, KIMI Baires, URL Address: [id number] [place] [address] When:Within 1 Week(s) [facility] 10-18-2024 Note Patient Education Oncology Bladder Cancer Bladder cancer is a condition where abnormal tissue (a tumor) grows in the bladder. The bladder is the organ that holds urine. Two tubes (ureters) carry urine from the kidneys to the bladder. The bladder wall is made of layers of tissue. Cancer that spreads through these layers of the bladder wall becomes more difficult to treat. What increases the risk? The following factors may make you more likely to develop this condition: ??? Smoking. ??? Working where there are risks (occupational exposures), such as working with rubber, leather, clothing fabric, dyes, chemicals, or paint. ??? Being 55 years of age or older. ??? Being male. ??? Having long-term bladder inflammation. ??? Having a history of cancer. This includes: ? A family history of bladder cancer. ? Having had bladder cancer before. ? Having had certain treatments for cancer before, such as: ? Medicines to kill cancer cells (chemotherapy). ? Strong X-ray beams or high-energy capsules to kill cancer cells and shrink tumors (radiation therapy). ??? Having been exposed to arsenic. This is a poisonous substance. What are the signs or symptoms? Early symptoms of this condition include: ??? Blood in your urine. ??? Pain when urinating. ??? Infections of your urinary system (urinary tract infections or UTIs) that happen often. ??? Having to urinate sooner or more often than normal. Late symptoms of this condition include: ??? Not being able to urinate. ??? Pain on one side of your lower back. ??? Loss of appetite. ??? Weight loss. ??? Tiredness (fatigue). ??? Swelling in your feet. ??? Bone pain. How is this diagnosed? This condition is diagnosed based on: ??? Your medical history. ??? A physical exam. ??? Lab tests, such as urine tests. ??? Imaging tests. ??? Your symptoms. You may also have other tests or procedures, such as: ??? A cystoscopy. This involves putting a narrow tube into your urethra. The urethra is the organ that carries urine from your bladder to the outside of your body. This procedure is done to view the lining of your bladder for tumors. ??? A biopsy. This involves removing a tissue sample to look at under a microscope to check for cancer. Blood tests or imaging tests may be needed. These show how far into the bladder wall cancer has grown, and if cancer has spread to any other parts of your body. Tests may include: ??? CT scan. ??? MRI. ??? Bone scan. ??? X-ray. How is this treated? Your health care provider may recommend one or more types of treatment based on the stage of your cancer. The most common treatments are: ??? Surgery to remove the cancer. Types of surgeries include: ? Removing a tumor on the inside wall of the bladder (transurethral resection). ? Removing the bladder (cystectomy). ??? Radiation therapy. This is often combined with chemotherapy. ??? Chemotherapy. ??? Immunotherapy. This uses medicines to help your body's disease-fighting system (immune system) destroy cancer cells. Follow these instructions at home: ??? Take fxyq-kve-aeavggi and prescription medicines only as told by your health care provider. ??? If you were prescribed an antibiotic medicine, take it as told by your health care provider. Do not stop using the antibiotic even if you start to feel better. ??? Eat a healthy diet. Some treatments might affect your appetite. ??? Do not use any products that contain nicotine or tobacco. These products include cigarettes, chewing tobacco, and vaping devices, such as e-cigarettes. If you need help quitting, ask your health care provider. ??? Consider joining a support group. This may help you learn to deal with the stress of having bladder cancer. ??? Tell your cancer care team if you develop side effects. Your team may be able to recommend ways to get relief. ??? Keep all follow-up visits. This is important. Where to find more information ??? [employer] [employer] (ACS): cancer.org ??? National Cancer [place] (NCI): cancer.gov Contact a health care provider if: ??? You have symptoms of a UTI. These include: ? Fever. ? Chills. ? Weakness. ? Muscle aches. ? Pain in your abdomen. ? Urge to urinate that is stronger and happens more often than normal. ? Burning in the bladder or urethra when you urinate. Get help right away if: ??? There is blood in your urine. ??? You cannot urinate. ??? You have severe pain or other symptoms that do not go away. Summary ??? Bladder cancer is a condition where tumors grow in the bladder. ??? Diagnosis is based on your medical history, a physical exam, lab tests, imaging tests, and your symptoms. ??? Your health care provider may recommend one or more types of treatment based on the stage of your cancer. ??? Consider joining a support group. This may help you learn to deal with the stress of having bladder cancer. This information is n (more content not included)... [facility] 10-11-2024 Hospital Discharge instructions Patient Education 10/11/2024 13:37:17 Bladder Cancer Bladder Cancer Bladder cancer is a condition where abnormal tissue (a tumor) grows in the bladder. The bladder is the organ that holds urine. Two tubes (ureters) carry urine from the kidneys to the bladder. The bladder wall is made of layers of tissue. Cancer that spreads through these layers of the bladder wall becomes more difficult to treat. What increases the risk? The following factors may make you more likely to develop this condition: Smoking. Working where there are risks (occupational exposures), such as working with rubber, leather, clothing fabric, dyes, chemicals, or paint. Being 55 years of age or older. Being male. Having long-term bladder inflammation. Having a history of cancer. This includes: ?A family history of bladder cancer. ?Having had bladder cancer before. ?Having had certain treatments for cancer before, such as: ?Medicines to kill cancer cells (chemotherapy). ?Strong X-ray beams or high-energy capsules to kill cancer cells and shrink tumors (radiation therapy). Having been exposed to arsenic. This is a poisonous substance. What are the signs or symptoms? Early symptoms of this condition include: Blood in your urine. Pain when urinating. Infections of your urinary system (urinary tract infections or UTIs) that happen often. Having to urinate sooner or more often than normal. Late symptoms of this condition include: Not being able to urinate. Pain on one side of your lower back. Loss of appetite. Weight loss. Tiredness (fatigue). Swelling in your feet. Bone pain. How is this diagnosed? This condition is diagnosed based on: Your medical history. A physical exam. Lab tests, such as urine tests. Imaging tests. Your symptoms. You may also have other tests or procedures, such as: A cystoscopy. This involves putting a narrow tube into your urethra. The urethra is the organ that carries urine from your bladder to the outside of your body. This procedure is done to view the lining of your bladder for tumors. A biopsy. This involves removing a tissue sample to look at under a microscope to check for cancer. Blood tests or imaging tests may be needed. These show how far into the bladder wall cancer has grown, and if cancer has spread to any other parts of your body. Tests may include: CT scan. MRI. Bone scan. X-ray. How is this treated? Your health care provider may recommend one or more types of treatment based on the stage of your cancer. The most common treatments are: Surgery to remove the cancer. Types of surgeries include: ?Removing a tumor on the inside wall of the bladder (transurethral resection). ?Removing the bladder (cystectomy). Radiation therapy. This is often combined with chemotherapy. Chemotherapy. Immunotherapy. This uses medicines to help your body's disease-fighting system (immune system) destroy cancer cells. Follow these instructions at home: Take sbim-kvn-jahfwbd and prescription medicines only as told by your health care provider. If you were prescribed an antibiotic medicine, take it as told by your health care provider. Do not stop using the antibiotic even if you start to feel better. Eat a healthy diet. Some treatments might affect your appetite. Do not use any products that contain nicotine or tobacco. These products include cigarettes, chewing tobacco, and vaping devices, such as e-cigarettes. If you need help quitting, ask your health care provider. Consider joining a support group. This may help you learn to deal with the stress of having bladder cancer. Tell your cancer care team if you develop side effects. Your team may be able to recommend ways to get relief. Keep all follow-up visits. This is important. Where to find more information [employer] [employer] (ACS): cancer.org National Cancer [place] (NCI): cancer.gov Contact a health care provider if: You have symptoms of a UTI. These include: ?Fever. ?Chills. ?Weakness. ?Muscle aches. ?Pain in your abdomen. ?Urge to urinate that is stronger and happens more often than normal. ?Burning in the bladder or urethra when you urinate. Get help right away if: There is blood in your urine. You cannot urinate. You have severe pain or other symptoms that do not go away. Summary Bladder cancer is a condition where tumors grow in the bladder. Diagnosis is based on your medical history, a physical exam, lab tests, imaging tests, and your symptoms. Your health care provider may recommend one or more types of treatment based on the stage of your cancer. Consider joining a support group. This may help you learn to deal with the stress of having bladder cancer. This information is not intended to replace advice given to you by your health care provider. Make sure you discuss any questions you have with your health care provider. Document Revised: 04/29/2022 Document Reviewed: 04/29/2022 [facility] Patient Education 2023 [employer]. Follow Up Care 09/23/2024 16:04:51 With:RADHA WEATHERS, KIMI Baires, URL Address: [address] [place] [address] When:Within 1 Week(s) [facility] 10-11-2024 Note Patient Education Oncology Bladder Cancer Bladder cancer is a condition where abnormal tissue (a tumor) grows in the bladder. The bladder is the organ that holds urine. Two tubes (ureters) carry urine from the kidneys to the bladder. The bladder wall is made of layers of tissue. Cancer that spreads through these layers of the bladder wall becomes more difficult to treat. What increases the risk? The following factors may make you more likely to develop this condition: ??? Smoking. ??? Working where there are risks (occupational exposures), such as working with rubber, leather, clothing fabric, dyes, chemicals, or paint. ??? Being 55 years of age or older. ??? Being male. ??? Having long-term bladder inflammation. ??? Having a history of cancer. This includes: ? A family history of bladder cancer. ? Having had bladder cancer before. ? Having had certain treatments for cancer before, such as: ? Medicines to kill cancer cells (chemotherapy). ? Strong X-ray beams or high-energy capsules to kill cancer cells and shrink tumors (radiation therapy). ??? Having been exposed to arsenic. This is a poisonous substance. What are the signs or symptoms? Early symptoms of this condition include: ??? Blood in your urine. ??? Pain when urinating. ??? Infections of your urinary system (urinary tract infections or UTIs) that happen often. ??? Having to urinate sooner or more often than normal. Late symptoms of this condition include: ??? Not being able to urinate. ??? Pain on one side of your lower back. ??? Loss of appetite. ??? Weight loss. ??? Tiredness (fatigue). ??? Swelling in your feet. ??? Bone pain. How is this diagnosed? This condition is diagnosed based on: ??? Your medical history. ??? A physical exam. ??? Lab tests, such as urine tests. ??? Imaging tests. ??? Your symptoms. You may also have other tests or procedures, such as: ??? A cystoscopy. This involves putting a narrow tube into your urethra. The urethra is the organ that carries urine from your bladder to the outside of your body. This procedure is done to view the lining of your bladder for tumors. ??? A biopsy. This involves removing a tissue sample to look at under a microscope to check for cancer. Blood tests or imaging tests may be needed. These show how far into the bladder wall cancer has grown, and if cancer has spread to any other parts of your body. Tests may include: ??? CT scan. ??? MRI. ??? Bone scan. ??? X-ray. How is this treated? Your health care provider may recommend one or more types of treatment based on the stage of your cancer. The most common treatments are: ??? Surgery to remove the cancer. Types of surgeries include: ? Removing a tumor on the inside wall of the bladder (transurethral resection). ? Removing the bladder (cystectomy). ??? Radiation therapy. This is often combined with chemotherapy. ??? Chemotherapy. ??? Immunotherapy. This uses medicines to help your body's disease-fighting system (immune system) destroy cancer cells. Follow these instructions at home: ??? Take jwpf-nov-erdlehx and prescription medicines only as told by your health care provider. ??? If you were prescribed an antibiotic medicine, take it as told by your health care provider. Do not stop using the antibiotic even if you start to feel better. ??? Eat a healthy diet. Some treatments might affect your appetite. ??? Do not use any products that contain nicotine or tobacco. These products include cigarettes, chewing tobacco, and vaping devices, such as e-cigarettes. If you need help quitting, ask your health care provider. ??? Consider joining a support group. This may help you learn to deal with the stress of having bladder cancer. ??? Tell your cancer care team if you develop side effects. Your team may be able to recommend ways to get relief. ??? Keep all follow-up visits. This is important. Where to find more information ??? [place] [employer] (ACS): cancer.org ??? National Cancer [place] (NCI): cancer.gov Contact a health care provider if: ??? You have symptoms of a UTI. These include: ? Fever. ? Chills. ? Weakness. ? Muscle aches. ? Pain in your abdomen. ? Urge to urinate that is stronger and happens more often than normal. ? Burning in the bladder or urethra when you urinate. Get help right away if: ??? There is blood in your urine. ??? You cannot urinate. ??? You have severe pain or other symptoms that do not go away. Summary ??? Bladder cancer is a condition where tumors grow in the bladder. ??? Diagnosis is based on your medical history, a physical exam, lab tests, imaging tests, and your symptoms. ??? Your health care provider may recommend one or more types of treatment based on the stage of your cancer. ??? Consider joining a support group. This may help you learn to deal with the stress of having bladder cancer. This information is n (more content not included)... [facility] 09-28-2024 Note [facility] Cardiology Clinic Note Chief Complaint: Patient here for follow up echo and labs. He was started on lisinopril and hydrochlorothiazide 2 weeks after his apt. He was unable to tolerate hydrochlorothiazide due to frequent urination. Says his BP has still been elevated. Patient still needs clearance for urological procedure with Dr. Souza. Says his lightheadedness/dizziness is from gabapentin. HPI: Jam Ramirez Jr. is a 84 y.o. male With a history of diabetes, hypertension here to establish care and in preop evaluation The patient is very physically active; he can walk up and down a flight of stairs 2-3 times before having to rest on the third time due to shortness of breath. He mows his yard and in the winter he snow blows without chest pain. No orthopnea, no paroxysmal tunnel dyspnea, no lower extremity edema. He has pin point discomfort in the left shoulder blade that is unrelated to exertion. He states that he has it now just sitting in the chair. This does not get worse with any of the physical activities described above. He has never had a history of myocardial infarction, no history of congestive heart failure, no significant arrhythmias. UPDATE 09/27/2024 Blood pressure readings from home fluctuate between 132/80 up to 175/113. Clearly his blood pressures are not well-controlled. He is not sure if these readings are before or after taking his medications. He has no chest pain. He complains of the same pinpoint discomfort in the left shoulder blade unrelated to exertion. He is able to perform activities of daily living without chest discomfort or shortness of breath. Review of Systems Cardiovascular: Positive for chest pain (left shoulder on occasion), dyspnea on exertion and leg swelling (minimal). Respiratory: Positive for shortness of breath (with exertion). Neurological: Positive for dizziness and light-headedness. Past Medical History He has a past medical history of COPD (chronic obstructive pulmonary disease) (CMS/HCC), Diabetes mellitus (CMS/HCC), Hematuria, and Hyperlipidemia. Surgical History He has no past surgical history on file. Social History He reports that he does not currently use alcohol. No history on file for tobacco use and drug use. Family History No family history on file. Allergies Codeine Medications Current Outpatient Medications: acetaminophen (Tylenol) 325 mg tablet, Take by mouth., Disp: , Rfl: albuterol 2.5 mg /3 mL (0.083 %) nebulizer solution, 2.5 mg every 4 (four) hours if needed., Disp: , Rfl: albuterol 90 mcg/actuation inhaler, Inhale 2 puffs every 4 (four) hours if needed., Disp: , Rfl: ALPRAZolam (Xanax) 0.25 mg tablet, TAKE 1 TABLET BY MOUTH 3 TIMES A DAY NEEDED FOR ANXIETY FOR UP TO 10 DAYS, Disp: , Rfl: gabapentin (Neurontin) 100 mg capsule, Take 100 mg by mouth 3 times a day., Disp: , Rfl: glipiZIDE (Glucotrol) 10 mg tablet, 10 mg., Disp: , Rfl: hydroCHLOROthiazide (HYDRODiuril) 25 mg tablet, Take 1 tablet (25 mg) by mouth once daily as directed., Disp: 90 tablet, Rfl: 3 hydrOXYzine HCL (Atarax) 25 mg tablet, 25 mg., Disp: , Rfl: levoFLOXacin (Levaquin) 750 mg tablet, Take 1 tablet by mouth in the morning., Disp: , Rfl: lisinopril 10 mg tablet, Take 1 tablet (10 mg) by mouth once daily as directed., Disp: 90 tablet, Rfl: 3 metFORMIN XR (Glucophage-XR) 500 mg 24 hr tablet, Take 500 mg by mouth in the morning., Disp: , Rfl: methocarbamol (Robaxin) 750 mg tablet, TAKE 1 TABLET BY MOUTH 4 TIMES A DAY NEEDED FOR MUSCLE SPASMS, Disp: , Rfl: naproxen sodium 220 mg capsule, Take 220 mg by mouth every 8 (eight) hours if needed., Disp: , Rfl: omeprazole (PriLOSEC) [address] capsule, Take 20 mg by mouth., Disp: , Rfl: OXcarbazepine (Trileptal) 300 mg tablet, 300 mg., Disp: , Rfl: Last Recorded Vitals BP (!) 144/100 (BP Location: Left arm, Patient Position: Sitting) Pulse 83 Ht 1.778 m (5' 10 ) Wt 80.7 kg (178 lb) SpO2 98% BMI 25.54 kg/m??? Physical Examination: GENERAL: alert and oriented x3, well developed, in no acute distress. HEAD: atraumatic, normocephalic. EYES: JORDAN, EOMI. NECK: trachea midline, no JVD present, no carotid bruits present. CARDIAC: S1, S2 present. RRR. No murmur, rubs, or gallops. RESPIRATORY: CTAB, no increased effort of breathing, no rales, rhonchi, or wheezing. ABDOMEN: soft, nontender, nondistended. EXTREMITIES: no lower extremity edema, peripheral pulses are 2+ bilaterally. No rash/skin discoloration present. NEURO: strength/sensation equal and symmetric in bilateral upper and lower extremities. PSYCH: appropriate mood, affect, and judgement. INVESTIGATIONS: EKG 08/16/2024: Sinus rhythm, borderline left axis deviation, right bundle branch block, minimal voltage criteria for LVH Echocardiogram: Global left ventricular systolic function is normal; visually estimated ejection fraction is 55% Moderate left ventricular hypert (more content not included)... [facility] 09-06-2024 Note Patient Education Oncology Chemotherapy Chemotherapy is a cancer treatment. It uses medicines to slow down or stop the growth of cancer. You may have chemotherapy to: ??? Cure your cancer. ??? Prevent the cancer from growing or spreading (metastasizing). ??? Ease symptoms and improve your quality of life (palliative care). ??? Improve the effects of radiation treatment. ??? Shrink a tumor before surgery. ??? Rid the body of cancer cells that remain after having a tumor surgically removed. The length of chemotherapy treatment depends on many factors, including: ??? The type and stage of your cancer. ??? How you respond to the chemotherapy. ??? Your side effects. What are the risks? Generally, this is a safe treatment. However, problems may occur, including: ??? Infection. ??? Bleeding. ??? Allergic reactions to medicines. You may have side effects from chemotherapy. What side effects you have depend on a variety of factors, including: ??? The type of chemotherapy medicine used. ??? Your dosage. ??? How long the medicine is used for. ??? Your overall health. What happens before treatment? You will meet with your cancer care team to discuss: ? Your treatment schedule. ? How your chemotherapy medicine will be given. ? Common side effects and how to prevent or treat them, which may include being given medicines. ??? You may have blood tests. What happens during treatment? Chemotherapy may be given continuously over time, or it may be given in cycles. Some common ways chemotherapy may be given include: ??? As a pill or capsule. ??? As a shot (injection). ??? As a skin (topical) cream. ??? As a special wafer that is put in your body where the cancer is. The wafer contains chemotherapy medicine. ??? As an injection into the cerebrospinal fluid (CSF) in the brain or spinal cord (intraventricular or intrathecal chemotherapy). ??? As an installation into the intraperitoneal (abdominal) cavity. ??? Through a small, thin tube (catheter). There are different kinds of catheters. You might have one that: ? Goes into a vein (intravenous catheter). An IV may be inserted into a vein each time you get a treatment or it can be used over several days. ? Goes into a vein in your neck that leads to a large vein close to your heart (non-tunneled catheter). This catheter has a risk of infection, so it is used for only a short time. ? Goes into a vein near your elbow (PICC line) and passes through into a large vein in your chest or upper arm. This may be used for weeks or months. ? Connects to an implanted device (port) that is inserted under the skin of your chest (port catheter). The port is attached to a catheter that is passed through into a large vein in your chest or upper arm. The port may stay in place for months or years. ? Goes through the skin of your chest and into a large vein close to your heart (tunneled catheter). This catheter may stay in place for months or years. While you are receiving your chemotherapy medicine, your cancer care team may monitor your blood pressure, heart rate, breathing rate, and blood oxygen level (vital signs) and watch for any problems. Some types of chemotherapy medicine are given only one time. Others are given for months, years, or for life. What can I expect after treatment? After chemotherapy, you may have side effects, such as: ??? Nausea and vomiting. ??? Appetite loss or a change in the way foods taste. ??? Constipation or diarrhea. ??? Fatigue. ??? Increased risk of infections, bruising, or bleeding. ??? Hair loss. ??? Mouth or throat sores. ??? Tingling, pain, or numbness in the hands and feet. ??? Dry, sensitive, itchy, or sore skin. ??? Memory changes. Follow these instructions at home: General instructions ??? If you get chemotherapy through an IV, PICC line, or port, check the site every day for signs of infection. Check for redness, swelling, pain, fluid, or warmth. ??? Wash your hands frequently with soap and water. Scrub your hands for at least 20 seconds. If soap and water are not available, use an alcohol based hand supervisor prop making that contains at least 60% alcohol. Have other members of your household wash their hands often. ??? Chemotherapy medicines leave the body through urine or stool (feces), but they can also be present in other body fluids including vomit, blood, vaginal fluids, and semen for up to 48 hours after receiving the medication. You must carefully follow some safety precautions to prevent harm to others while you are taking these medicines: ? Wash laundry that comes in contact with your body fluids separately. This includes clothing, sheets, and towels. Machine wash laundry twice in hot water with regular laundry detergent. ? Use a condom during vaginal, anal, and oral sex while you are taking chemotherapy medicines. These medicines can stay active in your (more content not included)... [facility] 08-23-2024 Note [facility] Cardiology Clinic Note Chief Complaint: New patient. Abnormal EKG. Surgery clearance HPI: Jam Ramirez Jr. is a 84 y.o. male With a history of diabetes, hypertension here to establish care and in preop evaluation The patient is very physically active; he can walk up and down a flight of stairs 2-3 times before having to rest on the third time due to shortness of breath. He mows his yard and in the winter he snow blows without chest pain. No orthopnea, no paroxysmal tunnel dyspnea, no lower extremity edema. He has pin point discomfort in the left shoulder blade that is unrelated to exertion. He states that he has it now just sitting in the chair. This does not get worse with any of the physical activities described above. He has never had a history of myocardial infarction, no history of congestive heart failure, no significant arrhythmias. Review of Systems Cardiovascular: Positive for chest pain (left shoulder on occasion). Respiratory: Positive for shortness of breath (with exertion). Past Medical History He has no past medical history on file. Surgical History He has no past surgical history on file. Social History He has no history on file for tobacco use, alcohol use, and drug use. Family History No family history on file. Allergies Patient has no allergy information on record. Medications Current Outpatient Medications: gabapentin (Neurontin) 100 mg capsule, Take 100 mg by mouth 3 times a day., Disp: , Rfl: glipiZIDE (Glucotrol) 10 mg tablet, 10 mg., Disp: , Rfl: hydrOXYzine HCL (Atarax) 25 mg tablet, 25 mg., Disp: , Rfl: levoFLOXacin (Levaquin) 750 mg tablet, Take 1 tablet by mouth in the morning., Disp: , Rfl: metFORMIN XR (Glucophage-XR) 500 mg 24 hr tablet, Take 500 mg by mouth in the morning., Disp: , Rfl: methocarbamol (Robaxin) 750 mg tablet, TAKE 1 TABLET BY MOUTH 4 TIMES A DAY NEEDED FOR MUSCLE SPASMS, Disp: , Rfl: OXcarbazepine (Trileptal) 300 mg tablet, 300 mg., Disp: , Rfl: acetaminophen (Tylenol) 325 mg tablet, Take by mouth., Disp: , Rfl: albuterol 2.5 mg /3 mL (0.083 %) nebulizer solution, 2.5 mg every 4 (four) hours if needed., Disp: , Rfl: albuterol 90 mcg/actuation inhaler, Inhale 2 puffs every 4 (four) hours if needed., Disp: , Rfl: ALPRAZolam (Xanax) 0.25 mg tablet, TAKE 1 TABLET BY MOUTH 3 TIMES A DAY NEEDED FOR ANXIETY FOR UP TO 10 DAYS, Disp: , Rfl: naproxen sodium 220 mg capsule, Take 220 mg by mouth every 8 (eight) hours if needed., Disp: , Rfl: omeprazole (PriLOSEC) [address] capsule, Take 20 mg by mouth., Disp: , Rfl: Last Recorded Vitals BP (!) 159/100 (BP Location: Right arm, Patient Position: Sitting) Pulse 95 Ht 1.778 m (5' 10 ) Wt 83 kg (183 lb) SpO2 98% BMI 26.26 kg/m??? Physical Examination: GENERAL: alert and oriented x3, well developed, in no acute distress. HEAD: atraumatic, normocephalic. EYES: JORDAN, EOMI. NECK: trachea midline, no JVD present, no carotid bruits present. CARDIAC: S1, S2 present. RRR. No murmur, rubs, or gallops. RESPIRATORY: CTAB, no increased effort of breathing, no rales, rhonchi, or wheezing. ABDOMEN: soft, nontender, nondistended. EXTREMITIES: no lower extremity edema, peripheral pulses are 2+ bilaterally. No rash/skin discoloration present. NEURO: strength/sensation equal and symmetric in bilateral upper and lower extremities. PSYCH: appropriate mood, affect, and judgement. INVESTIGATIONS: EKG 08/16/2024: Sinus rhythm, borderline left axis deviation, right bundle branch block, minimal voltage criteria for LVH Assessment: Exertional shortness of breath Chronic obstructive pulmonary disease Hypertension; poorly controlled Diabetes mellitus type 2 Hematuria Preoperative evaluation Plan: Given the patient's physical tolerance, absence of significant cardiovascular disorders, he would be at acceptable risk to proceed with surgery with no further cardiovascular testing needed. Recommend strict heart rate and blood pressure control and avoidance of major fluid shifts perioperatively. Will obtain an echocardiogram given his exertional shortness of breath and evidence of left ventricular hypertrophy on EKG. If this is confirmed, I would recommend initiation of an angiotensin-converting enzyme inhibitor or receptor karol for better blood pressure control and for the positive effects on remodeling Treat noncardiac comorbidities as clinically appropriate Return to clinic in 6 months or sooner should problems arise [facility] 08-11-2024 Note Patient Education Oncology Transurethral Resection of Bladder Tumor, Care After The following information offers guidance on how to care for yourself after your procedure. Your health care provider may also give you more specific instructions. If you have problems or questions, contact your health care provider. What can I expect after the procedure? After the procedure, it is common to have: ??? A small amount of blood or small blood clots in your urine for up to 2 weeks. ??? Soreness or mild pain from your catheter. After your catheter is removed, you may have mild soreness, especially when urinating. ??? A need to urinate often. ??? Pain in your lower abdomen. Follow these instructions at home: Medicines ??? Take zeem-zkf-ljfwsmx and prescription medicines only as told by your health care provider. ??? If you were prescribed an antibiotic medicine, take it as told by your health care provider. Do not stop taking the antibiotic even if you start to feel better. ??? Ask your health care provider if the medicine prescribed to you: ? Requires you to avoid driving or using machinery. ? Can cause constipation. You may need to take these actions to prevent or treat constipation: ? Drink enough fluid to keep your urine pale yellow. ? Take xrfz-mxy-padvtbu or prescription medicines. ? Eat foods that are high in fiber, such as beans, whole grains, and fresh fruits and vegetables. ? Limit foods that are high in fat and processed sugars, such as fried or sweet foods. Activity ??? If you were given a sedative during the procedure, it can affect you for several hours. Do not drive or operate machinery until your health care provider says that it is safe. ??? Rest as told by your health care provider. ??? Avoid sitting for a long time without moving. Get up to take short walks every 1?2 hours. This is important to improve blood flow and breathing. Ask for help if you feel weak or unsteady. ??? Do not lift anything that is heavier than 10 lb (4.5 kg), or the limit that you are told, until your health care provider says that it is safe. ??? Avoid intense physical activity for as long as told by your health care provider. ??? Do not have sex until your health care provider approves. ??? Return to your normal activities as told by your health care provider. Ask your health care provider what activities are safe for you. General instructions ??? If you have a catheter, follow instructions from your health care provider about caring for your catheter and your drainage bag. ??? Do not drink alcohol for as long as told by your health care provider. This is especially important if you are taking prescription pain medicines. ??? Do not use any products that contain nicotine or tobacco. These products include cigarettes, chewing tobacco, and vaping devices, such as e-cigarettes. If you need help quitting, ask your health care provider. ??? Wear compression stockings as told by your health care provider. These stockings help to prevent blood clots and reduce swelling in your legs. ??? Keep all follow-up visits. This is important. ? You will need to be followed closely with regular checks of your bladder and urethra (cystoscopies) to make sure that the cancer does not come back. Contact a health care provider if: ??? You have blood in your urine for more than 2 weeks. ??? You become constipated. Signs of constipation may include: ? Having fewer than three bowel movements in a week. ? Difficulty having a bowel movement. ? Stools that are dry, hard, or larger than normal. ??? You have a urinary catheter in place, and you have: ? Spasms or pain. ? Problems with your catheter or your catheter is blocked. ??? Your catheter has been taken out but you are unable to urinate. ??? You have signs of infection, such as: ? Fever or chills. ? Cloudy or bad-smelling urine. Get help right away if: ??? You have severe abdominal pain that gets worse or does not improve with medicine. ??? You have a lot of large blood clots in your urine. ??? You develop swelling or pain in your leg. ??? You have difficulty breathing. These symptoms may be an emergency. Get help right away. Call 911. ??? Do not wait to see if the symptoms will go away. ??? Do not drive yourself to the hospital. Summary ??? After your procedure, it is common to have a small amount of blood or small blood clots in your urine, soreness or mild pain from your catheter, and pain in your lower abdomen. ??? Take hqmr-nrf-mxqrzdc and prescription medicines only as told by your health care provider. ??? Rest as told by your health care provider. Follow your health care provider's instructions about returning to normal activities. Ask what activities are safe for you. ??? If you have a catheter, follow instructions from your health care provider about caring for your catheter and your drainage bag. (more content not included)... [facility] 07-28-2024 Instructions Layla Rodriguez NP - 07/28/2024 3:00 PM EST - Continue gabapentin as directed documented in this encounter [facility] 07-07-2024 History of Present illness Narrative Associated Problem(s): Type 2 diabetes mellitus with hyperglycemia (CMS/[facility]ER[facility]) Recent A1C 7.5. Stick to ADA diet and limit carbs. Associated Problem(s): Medicare annual wellness visit, subsequent Due for labs. Discussed proper diet and regular aerobic exercise. Need aerobic exercise 5-6 days a week for 30 minutes at a time. Smaller portions and limit total calories. Tetanus every 10 years. Advised not to smoke. Associated Problem(s): Dyslipidemia (CMS/[facility]) Prior statin intolerance. Associated Problem(s): COPD (chronic obstructive pulmonary disease) ([facility]) Symptoms stable and use albuterol PRN. Images from the original note were not included. Subjective Patient ID: Jam Ramirez Jr. is a 84 y.o. male who [...] This Visit COPD (chronic obstructive pulmonary disease) ([facility]) Symptoms stable and use albuterol PRN. Dyslipidemia (CMS/[facility]) Prior statin intolerance. Type 2 diabetes mellitus with hyperglycemia ([facility]) Recent A1C 7.5. Stick to ADA diet and limit carbs. Medicare annual wellness visit, subsequent - Primary Due for labs. Discussed proper diet and regular aerobic exercise. Need aerobic exercise 5-6 days a week for 30 minutes at a time. Smaller portions and limit total calories. Tetanus every 10 years. Advised not to smoke. Statin myopathy documented in this encounter [facility] 07-05-2024 Hospital Discharge instructions Patient Education 07/05/2024 [...] including vitamins, herbs, eye drops, creams, and mqoa-zlq-rworuze medicines. Any problems you or family members [...] provider tells you to take them. Taking pmpr-zux-fanvssu medicines, vitamins, herbs, and supplements. Tests You [...] Follow these instructions at home: Medicines Take rkpo-lkw-qgzmxuh and prescription medicines only as told by [...] provider. Document Revised: 01/30/2022 Document Reviewed: 12/29/2020 [facility] Patient Education 2023 [employer]. 07/05/2024 09:52:06 Hematuria, Adult Hematuria, Adult Hematuria [...] Follow these instructions at home: Medicines Take fljj-dds-padhely and prescription medicines only as told by [...] or the blood stops without treatment. Take tazt-law-bznxxxy and prescription medicines only as told by your health care provider. Drink enough fluid to keep your urine pale yellow. This information is not intended to replace advice given to you by your health care provider. Make sure you discuss any questions you have with your health care provider. Document Revised: 01/17/2021 Document Reviewed: 01/17/2021 [facility] Patient Education 2023 [employer]. Follow Up Care 06/18/2024 13:46:52 With:LIBBY QUINTANA, Lalo Mclain, URL Address: [facility] [address], [place] [address]- [phone] When: Unknown [facility] 07-05-2024 Note Urology Office/Clini c Note [...] by PCP. Follow-up With When Contact Information LIBBY QUINTANA, Lalo Mclain, URL [facility] [address], [place] [address] [phone] Additional Instructions: sched cysto and CTU Patient Education Cystoscopy Hematuria, Adult I, Amy David, personally scribed for Dr. Souza on 07/05/2024 10:11:39. . Documentation recorded by the scribeAmy, accurately reflects the services(s) I performed and decisions made by me. Authenticated by Dr. Souza on 07/05/2024 10:13:41. Problem List/Past Medical History [...] TID Allergies codeine (more content not included)... [facility] Comment on above: Result Comment: Elec tronically Signed By: Lalo SOUZA MD\.br\Date and Time Signed: 07/05/24 10:13 EST\.br\Electronically Co-Signed By: Amy David\.br\Date and Time Co-Signed: 07/05/24 10:12 EST 07-05-2024 Note Patient Education Urology Cystoscopy Cystoscopy is [...] including vitamins, herbs, eye drops, creams, and dktj-mna-esrldos medicines. ??? Any problems you or family [...] tells you to take them. ??? Taking ngte-aww-zcpwztm medicines, vitamins, herbs, and supplements. Tests You [...] these instructions at home: Medicines ??? Take qadl-lvx-zxsadrr and prescription medicines only as told by [...] (biopsy) during your (more content not included)... [facility] 06-23-2024 History of Present illness Narrative Images from the original note were not included. Chief complaint: Post herpetic neuralgia Subjective Jam Oteroannabella Cabrera, 84 y.o., male Patient presents today fro [...] headaches. Past Medical History: Diagnosis Date Asthma ([facility]) Blood pressure elevated without history of HTN Chronic pain of both shoulders COPD, mild ([facility]/HCC) Dyslipidemia ([facility]/HCC) Former smoker HARISH (generalized anxiety disorder) ([facility]) Gastroesophageal reflux disease History of hernia repair Hypothyroidism, adult ([facility]) Insomnia, persistent Post herpetic neuralgia ([facility]) Seasonal allergic rhinitis due to pollen Type 2 diabetes mellitus with hyperglycemia, without long-term current use of insulin ([facility]) Past Surgical History: Procedure Laterality Date AMPUTATION [...] , wrist extensors , wrist flexor , car mechanic helper strength 5/5. LUE Strength deltoid , biceps , triceps , wrist extensors , wrist flexor , car mechanic helper strength 5/5. RLE Strength illopsoas, quadriceps, tibialis [...] reflex 0 . Gamez's sign negative. Coordination: Asxuzp-km-bakb testing and rapid alternating movements are normal [...] and treatment options documented in this encounter [facility] 06-14-2024 History of Present illness Narrative Associated Problem(s): Gross hematuria Reports blood in urine off and on of unclear etiology. Check urine and refer to urology for possible cystoscopy. Images from the original note were not included. Subjective Patient ID: Jam Ramirez Jr. is a 84 y.o. male who [...] referral to Urology documented in this encounter [facility] 05-17-2024 History of Present illness Narrative Associated Problem(s): Type 2 diabetes mellitus with hyperglycemia ([facility]/HCC) Reports BS stable and due for A1C. Stick to ADA diet and limit carbs. Associated Problem(s): COPD exacerbation (CMS/HCC) Worsening SOB and treat with prednisone and levaquin. Use albuterol every 4 hours x 48 then PRN. Images from the original note were not included. Subjective Patient ID: aJm Ramirez Jr. is a 84 y.o. male who [...] free Type 2 diabetes mellitus with hyperglycemia (CMS/HCC) Reports BS stable and due for A1C. Stick to ADA diet and limit carbs. Relevant Orders Microalbumin / creatinine, urine ratio Hemoglobin A1c Encounter for long-term (current) use of medications Relevant Orders Basic metabolic panel CBC and differential Hepatic function panel Encounter for screening prostate specific antigen (PSA) measurement Relevant Orders PSA documented in this encounter [facility] Evaluation + Plan note Future Appointments Appointment Date:08/11/2024 07:30:00 AM Scheduled Provider:Lalo SOUZA MD Location:[facility] Appointment Type:URO Procedure 15 min Diagnostic Tests PendingCreatinine 07/05/24 [facility] Evaluation + Plan note Future Appointments Appointment Date:08/11/2024 07:30:00 AM Scheduled Provider:Lalo SOUZA MD Location:[facility] Appointment Type:URO Procedure 15 min Diagnostic Tests PendingUrine Cytology ([facility]) 07/05/24 [facility] Evaluation + Plan note Future Appointments Appointment Date:10/18/2024 01:40:00 PM Scheduled Provider:KIMI GRAYSON PA-C Location:[facility] Appointment Type:URO Office Visit Appointment Date:11/01/2024 01:00:00 PM Scheduled Provider:KIMI GRAYSON PA-C Location:[facility] Appointment Type:URO Office Visit Appointment Date:11/08/2024 01:00:00 PM Scheduled Provider:KIMI GRAYSON PA-C [facility] Type:URO Office Visit Appointment Date:11/15/2024 01:00:00 PM Scheduled Provider:KIMI GRAYSON PA-C Location:[facility] Appointment Type:URO Office Visit Appointment Date:11/22/2024 01:00:00 PM Scheduled Provider:KIMI GRAYSON PA-C [facility] App[facility] Type:URO Office Visit [facility] Evaluation + Plan note Future Appointments Appointment Date:10/26/2024 11:20:00 AM Scheduled Provider:KIMI GRAYSON PA-C [facility] Appoint[facility] Type:URO Office Visit Appointment Date:11/01/2024 01:00:00 PM Scheduled Provider:KIMI GRAYSON PA-C [facility] Appointment Type:URO Office Visit Appointment Date:11/08/2024 01:00:00 PM Scheduled Provider:KIMI GRAYSON PA-C [facility] Appoint[facility] Type:URO Office Visit Appointment Date:11/15/2024 01:00:00 PM Scheduled Provider:KIMI GRAYSON PA-C [facility] Appointment Type:URO Office Visit [facility] Evaluation + Plan note Future Appointments Appointment Date:11/01/2024 01:00:00 PM Scheduled Provider:KIMI GRAYSON PA-C [facility] Appointment Type:URO Office Visit Appointment Date:11/08/2024 01:00:00 PM Scheduled Provider:KIMI GRAYSON PA-C [facility] Appointment Type:URO Office Visit Appointment Date:11/15/2024 01:00:00 PM Scheduled Provider:KIMI GRAYSON PA-C [facility] Appoint[facility] Type:URO Office Visit [facility] Evaluation + Plan note Future Appointments Appointment Date:11/08/2024 01:00:00 PM Scheduled Provider:KIMI GRAYSON PA-C Location:[facility] Appointment Type:URO Office Visit Appointment Date:11/15/2024 01:00:00 PM Scheduled Provider:KIMI GRAYSON PA-C Location:[facility] Appointment Type:URO Office Visit [facility] Evaluation + Plan note Future Appointments Appointment Date:11/15/2024 01:00:00 PM Scheduled Provider:KIMI GRAYSON PA-C Location:[facility] Appointment Type:URO Office Visit [facility] Evaluation + Plan note Future Appointments Appointment Date:02/09/2025 10:30:00 AM Scheduled Provider:Shannan Jose PA-C Location:[facility] Appointment Type:URO Office Visit Appointment Date:02/16/2025 10:30:00 AM Scheduled Provider:Shannan Jose PA-C Location:[facility] Appointment Type:URO Office Visit [facility] Evaluation + Plan note Future Appointments Appointment Date:02/16/2025 10:30:00 AM Scheduled Provider:Shannan Jose PA-C Location:[facility] Appointment Type:URO Office Visit Appointment Date:03/21/2025 08:30:00 AM Scheduled Provider:Lalo SOUZA MD Location:[facility] Appointment Type:URO Procedure 15 min [facility] Evaluation + Plan note Future Appointments Appointment Date:03/21/2025 08:30:00 AM Scheduled Provider:Lalo SOUZA MD Location:[facility] Appointment Type:URO Procedure 15 min [facility] Evaluation note Diagnosis Type 2 diabetes mellitus with hyperglycemia, without long-term current use of insulin ([facility])- Primary Post herpetic neuralgia (CMS/HCC) 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 Generalized anxiety disorder ([facility]/HCC) Generalized anxiety disorder Chronic obstructive pulmonary disease, unspecified COPD type ([facility]/HCC) Gastroesophageal reflux disease without esophagitis Esophageal reflux Lumbar spondylosis- Primary Lumbosacral spondylosis without myelopathy Post herpetic neuralgia (CMS/HCC) 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 Type 2 diabetes mellitus with hyperglycemia, without long-term current use of insulin ([facility])- Primary Lumbar spondylosis Lumbosacral spondylosis without myelopathy Chronic obstructive pulmonary disease, unspecified COPD type ([facility]/HCC) Generalized anxiety disorder ([facility]/HCC) Generalized anxiety disorder Post herpetic neuralgia ([facility]) 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 Gastroesophageal reflux disease without esophagitis Esophageal reflux COPD exacerbation ([facility])- Primary Obstructive chronic bronchitis with exacerbation Type 2 diabetes mellitus with hyperglycemia, without long-term current use of insulin ([facility]) Dyslipidemia ([facility]) Other and unspecified hyperlipidemia Adult hypothyroidism ([facility]) Unspecified hypothyroidism Encounter for screening prostate specific antigen (PSA) measurement Encounter for long-term (current) use of medications Encounter for long-term (current) use of other medications documented in this encounter [facility] HealthcareEvaluation note* Diagnosis Type 2 diabetes mellitus with hyperglycemia, without long-term current use of insulin ([facility])- Primary Post herpetic neuralgia ([facility]) 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 Generalized anxiety disorder ([facility]) Generalized anxiety disorder Chronic obstructive pulmonary disease, unspecified COPD type ([facility]) Gastroesophageal reflux disease without esophagitis Esophageal reflux Lumbar spondylosis- Primary Lumbosacral spondylosis without myelopathy Post herpetic neuralgia ([facility]) 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 Type 2 diabetes mellitus with hyperglycemia, without long-term current use of insulin ([facility])- Primary Lumbar spondylosis Lumbosacral spondylosis without myelopathy Chronic obstructive pulmonary disease, unspecified COPD type ([facility]/HCC) Generalized anxiety disorder ([facility]/HCC) Generalized anxiety disorder Post herpetic neuralgia ([facility]) 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 Gastroesophageal reflux disease without esophagitis Esophageal reflux COPD exacerbation ([facility])- Primary Obstructive chronic bronchitis with exacerbation Type 2 diabetes mellitus with hyperglycemia, without long-term current use of insulin ([facility]) Dyslipidemia ([facility]) Other and unspecified hyperlipidemia Adult hypothyroidism ([facility]) Unspecified hypothyroidism Encounter for screening prostate specific antigen (PSA) measurement Encounter for long-term (current) use of medications Encounter for long-term (current) use of other medications Gross hematuria- Primary documented in this encounter [facility] HealthcareEvaluation note* Diagnosis Type 2 diabetes mellitus with hyperglycemia, without long-term current use of insulin ([facility])- Primary Post herpetic neuralgia ([facility]) 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 Generalized anxiety disorder ([facility]) Generalized anxiety disorder Chronic obstructive pulmonary disease, unspecified COPD type ([facility]) Gastroesophageal reflux disease without esophagitis Esophageal reflux Lumbar spondylosis- Primary Lumbosacral spondylosis without myelopathy Post herpetic neuralgia ([facility]) 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 Type 2 diabetes mellitus with hyperglycemia, without long-term current use of insulin ([facility])- Primary Lumbar spondylosis Lumbosacral spondylosis without myelopathy Chronic obstructive pulmonary disease, unspecified COPD type ([facility]) Generalized anxiety disorder ([facility]) Generalized anxiety disorder Post herpetic neuralgia ([facility]) 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 Gastroesophageal reflux disease without esophagitis Esophageal reflux COPD exacerbation ([facility])- Primary Obstructive chronic bronchitis with exacerbation Type 2 diabetes mellitus with hyperglycemia, without long-term current use of insulin ([facility]) Dyslipidemia ([facility]) Other and unspecified hyperlipidemia Adult hypothyroidism ([facility]) Unspecified hypothyroidism Encounter for screening prostate specific antigen (PSA) measurement Encounter for long-term (current) use of medications Encounter for long-term (current) use of other medications Gross hematuria- Primary Post herpetic neuralgia ([facility])- Primary 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 documented in this encounter [facility] HealthcareEvaluation note* Diagnosis Type 2 diabetes mellitus with hyperglycemia, without long-term current use of insulin ([facility])- Primary Post herpetic neuralgia ([facility]) 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 Generalized anxiety disorder ([facility]) Generalized anxiety disorder Chronic obstructive pulmonary disease, unspecified COPD type ([facility]) Gastroesophageal reflux disease without esophagitis Esophageal reflux Lumbar spondylosis- Primary Lumbosacral spondylosis without myelopathy Post herpetic neuralgia ([facility]) 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 Type 2 diabetes mellitus with hyperglycemia, without long-term current use of insulin ([facility])- Primary Lumbar spondylosis Lumbosacral spondylosis without myelopathy Chronic obstructive pulmonary disease, unspecified COPD type (CMS/HCC) Generalized anxiety disorder ([facility]) Generalized anxiety disorder Post herpetic neuralgia (CMS/HCC) 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 Gastroesophageal reflux disease without esophagitis Esophageal reflux COPD exacerbation ([facility])- Primary Obstructive chronic bronchitis with exacerbation Type 2 diabetes mellitus with hyperglycemia, without long-term current use of insulin ([facility]) Dyslipidemia ([facility]) Other and unspecified hyperlipidemia Adult hypothyroidism ([facility]) Unspecified hypothyroidism Encounter for screening prostate specific antigen (PSA) measurement Encounter for long-term (current) use of medications Encounter for long-term (current) use of other medications Gross hematuria- Primary Medicare annual wellness visit, subsequent- Primary Type 2 diabetes mellitus with hyperglycemia, without long-term current use of insulin ([facility]) Dyslipidemia ([facility]/H[facility]) Other and unspecified hyperlipidemia Chronic obstructive pulmonary disease, unspecified COPD type ([facility]) Statin myopathy Toxic myopathy Type 2 diabetes mellitus with other specified complication ([facility]) documented in this encounter [facility] HealthcareEvaluation note* Diagnosis Type 2 diabetes mellitus with hyperglycemia, without long-term current use of insulin ([facility])- Primary Post herpetic neuralgia ([facility]) 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 Generalized anxiety disorder ([facility]) Generalized anxiety disorder Chronic obstructive pulmonary disease, unspecified COPD type ([facility]/H[facility]) Gastroesophageal reflux disease without esophagitis Esophageal reflux Lumbar spondylosis- Primary Lumbosacral spondylosis without myelopathy Post herpetic neuralgia ([facility]) 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 Type 2 diabetes mellitus with hyperglycemia, without long-term current use of insulin ([facility])- Primary Lumbar spondylosis Lumbosacral spondylosis without myelopathy Chronic obstructive pulmonary disease, unspecified COPD type ([facility]/HCC) Generalized anxiety disorder (CMS/HCC) Generalized anxiety disorder Post herpetic neuralgia ([facility]/H[facility]) 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 Gastroesophageal reflux disease without esophagitis Esophageal reflux COPD exacerbation ([facility])- Primary Obstructive chronic bronchitis with exacerbation Type 2 diabetes mellitus with hyperglycemia, without long-term current use of insulin ([facility]) Dyslipidemia ([facility]) Other and unspecified hyperlipidemia Adult hypothyroidism ([facility]) Unspecified hypothyroidism Encounter for screening prostate [...] diabetes mellitus with other specified complication (CMS/HCC) Post herpetic neuralgia (CMS/HCC) 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 documented in this encounter [facility]Evaluation noteNo assessment information [facility] Work [facility]: Evaluation note* Diagnosis Type 2 diabetes mellitus with [...] 2 diabetes mellitus with other specified complication Post herpetic neuralgia (CMS/HCC)- Primary 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 documented in this encounter [facility]* Diagnosis Type 2 diabetes mellitus with hyperglycemia, without long-term current use of insulin (HCC)- Primary Post herpetic neuralgia 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 Generalized anxiety disorder Generalized anxiety disorder Chronic obstructive pulmonary disease, unspecified COPD type (HCC) Gastroesophageal reflux disease without esophagitis Esophageal reflux Lumbar spondylosis- Primary Lumbosacral spondylosis without myelopathy Post herpetic neuralgia 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 Type 2 diabetes mellitus with hyperglycemia, without long-term current use of insulin (HCC)- Primary Lumbar spondylosis Lumbosacral spondylosis without myelopathy Chronic obstructive pulmonary disease, unspecified COPD type (HCC) Generalized anxiety disorder Generalized anxiety disorder Post herpetic neuralgia 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 Gastroesophageal reflux disease without esophagitis Esophageal reflux COPD exacerbation (HCC)- Primary Obstructive chronic bronchitis with exacerbation Type 2 diabetes mellitus with hyperglycemia, without long-term current use of insulin (HCC) Dyslipidemia Other and unspecified hyperlipidemia Adult hypothyroidism Unspecified hypothyroidism Encounter for screening prostate specific antigen (PSA) measurement Encounter for long-term (current) use of medications Encounter for long-term (current) use of other medications Medicare annual wellness visit, subsequent- Primary Type 2 diabetes mellitus with hyperglycemia, without long-term current use of insulin (HCC) Dyslipidemia Other and unspecified hyperlipidemia Chronic obstructive pulmonary disease, unspecified COPD type (HCC) Statin myopathy Toxic myopathy Type 2 diabetes mellitus with other specified complication (HCC) Type 2 diabetes mellitus with hyperglycemia, without long-term current use of insulin (HCC)- Primary Benign essential hypertension Essential hypertension, benign Chronic obstructive pulmonary disease, unspecified COPD type (HCC) Generalized anxiety disorder Generalized anxiety disorder Lumbar spondylosis Lumbosacral spondylosis without myelopathy Post herpetic neuralgia 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 Urothelial carcinoma of bladder (HCC) documented in this encounter [facility]* Diagnosis Onset Date Resolution Status Admit Date Post herpetic neuralgia chronic S [facility] 2024 10:20am [facility] Work Phone: Hospital course Narrative No data available for this section [facility] Hospital Discharge instructions No data available for this section [facility] Progress note No data available for this section [facility] [place] reason for referral (narrative)No reason for referral information [facility] Work Phone: Reason for visit Narrative* Consultation (Routine) - Closed Specialty Diagnoses / Procedures Referred By Contac t Referred To Contact Neurology Diagnoses Other postherpetic nervous system involvement (CMS/HCC) Procedures SC OFFICE/OUTPATIENT NEW LOW MDM Thomas Hassan MD [address] [place] [address] Phone: tel: fax: Carlos Abdi MD [address] [place] [address] Phone: tel: fax: Referral ID Status Reason Start Date Expiration Date V isits Requested Visits Authorized [id number] Closed Consult and Treat 04/23/2024 10/20/2024 1 1 [facility] Summary Purpose Family History No Family History Records Found No data available for this section No data available for this section No Family History Records FoundNo Family History Records Found No data available for this section No data available for this section No data available for this section No Family History Records Found No data available for this section No data available for this section No data available for this section No Family History Records Found No data available for this section No data available for this section No Family History Records Found No data available for this section No Family History Records Found No data available for this section Advance Directives Advance Directive Response Recorded Date/ Time Advance Directives No January 10:19am Chief Complaint and Reason for Visit Chief Complaint Admit Date Amb Documentation January 25, 2025 1: 07pm Reason for Visit Admit Date Post herpetic neuralgia February 17, 2025 10:20am Additional Source Comments (unrecognized sect ion and content) No Status Records FoundNo Status Records FoundNo Status Records FoundNo Status Records FoundNo Status Records FoundNo Status Records FoundNo Status Records Found INFORMATION SOURCE (unrecogn ized section and content) DATE CREATED AUTHOR 09/19/2022 [facility] DATE CREATED AUTHOR AUTHOR'S ORGANIZ ATION 08/13/2024 [facility] DATE CREATED AUTHOR AUTHOR'S ORGANIZ ATION 08/29/2024 [facility] DATE CREATED AUTHOR AUTHOR'S ORGANIZ ATION 10/30/2024 [facility] EPIC DATE CREATED AUTHOR AUTHOR'S ORGANIZ ATION 12/18/2024 [facility] DATE CREATED AUTHOR AUTHOR'S ORGANIZ ATION 02/05/2025 [facility] DATE CREATED AUTHOR AUTHOR'S ORGANIZ ATION 02/17/2025 [facility] Care Teams (unrecognized sec tion and content) Acid Retort Operator Relationship Specialty Start Date End Date Jorge Luis Malik MD [address] [place] [address] PCP - General Family Medicine 12/02/23 Jorge Luis Malik MD [address] [place] [address] PCP - Brittany SORIA 04/02/24 Thomas Hassan MD [address] [place] [address] Referring Physician 04/23/24 Acid Retort Operator Relationship Specialty Start Date End Date Jorge Luis Malik MD [address] [place] [address] PCP - General Family Medicine 12/02/23 Jorge Luis Malik MD [address] [place] [address] PCP - Brittany SORIA 04/02/24 Thomas Hassan MD [address] [place] [address] Referring Physician 04/23/24 Acid Retort Operator Relationship Specialty Start Date End Date Jorge Luis Malik MD [address] [place] [address] PCP - General Family Medicine 12/02/23 Acid Retort Operator Relationship Specialty Start Date End Date Jorge Luis Malik MD [address] [place] [address] PCP - General Family Medicine 12/02/23 Jorge Luis Malik MD [address] [place] [address] PCP - Brittany SORIA 04/02/24 Thomas Hassan MD [address] [place] [address] Referring Physician 04/23/24 Acid Retort Operator Relationship Specialty Start Date End Date Jorge Luis Malik MD [address] [place] [address] PCP - General Family Medicine 12/02/23 Jorge Luis Malik MD [address] [place] [address] PCP - Brittany SORIA 04/02/24 hTomas Hassan MD [address] [place] [address] Referring Physician 04/23/24 Acid Retort Operator Relationship Specialty Start Date End Date Jorge Luis Malik MD [address] [place] [address] PCP - General Family Medicine 12/02/23 Jorge Luis Malik MD [address] [place] [address] PCP - Brittany SORIA 04/02/24 Thomas Hassan MD [address] [place] [address] Referring Physician 04/23/24 Acid Retort Operator Relationship Specialty Start Date End Date Jorge Luis Malik MD [address] [place] [address] PCP - General Family Medicine 12/02/23 Jorge Luis Malik MD [address] [place] [address] PCP - Brittany SORIA 04/02/24 Thomas Hassan MD [address] [place] [address] Referring Physician 04/23/24 Acid Retort Operator Relationship Specialty Start Date End Date Jorge Luis Malik MD [address] [place] [address] PCP - General Family Medicine 12/02/23 Jorge Luis Malik MD [address] [place] [address] PCP - Brittany SORIA 04/02/24 Thomas Hassan MD [address] [place] [address] Referring Physician 04/23/24 Acid Retort Operator Relationship Specialty Start Date End Date Jorge Luis Malik MD [address] [place] [address] PCP - General Family Medicine 12/02/23 Jorge Luis Malik MD [address] [place] [address] PCP - Brittany SORIA 04/02/24 Thomas Hassan MD [address] [place] [address] Referring Physician 04/23/24 Acid Retort Operator Relationship Specialty Start Date End Date Jorge Luis Malik MD [address] [place] [address] PCP - General Family Medicine 12/02/23 Jorge Luis Malik MD [address] [place] [address] PCP - Brittany SORIA 04/02/24 Thomas Hassan MD [address] [place] [address] Referring Physician 04/23/24 Acid Retort Operator Relationship Specialty Start Date End Date Jorge Luis Malik MD [address] [place] [address] PCP - General Family Medicine 12/02/23 Thomas Hassan MD [address] [place] [address] Referring Physician 04/23/24 Acid Retort Operator Relationship Specialty Start Date End Date oJrge Luis Malik MD [address] [place] [address] PCP - General Family Medicine 12/02/23 Thomas Hassan MD [address] [place] [address] Referring Physician 04/23/24 Team Status: Inactive Member Role Status Dates Lalo Souza MD Attending Provider Active St art: August 26, 2024 End: August 26, 2024 Acid Retort Operator Relationship Specialty Start Date End Date Jorge Luis Malik MD [address] [place] [address] PCP - General Family Medicine 12/02/23 Jorge Luis Malik MD [address] [place] [address] PCP - Brittany SORIA 04/02/24 Thomas Hassan MD [address] [place] [address] Referring Physician 04/23/24 Acid Retort Operator Relationship Specialty Start Date End Date Jorge Luis Malik MD [address] [place] [address] PCP - General Family Medicine 12/02/23 Thomas Hassan MD [address] [place] [address] Referring Physician 04/23/24 Acid Retort Operator Relationship Specialty Start Date End Date Jorge Luis Malik MD [address] [place] [address] PCP - General Family Medicine 12/02/23 Thomas Hassan MD [address] [place] [address] Referring Physician 04/23/24 Acid Retort Operator Relationship Specialty Start Date End Date Jorge Luis Malik MD [address] [place] [address] PCP - General Family Medicine 12/02/23 Jorge Luis Malik MD [address] [place] [address] PCP - Brittany SORIA 04/02/24 Thomas Hassan MD [address] [place] [address] Referring Physician 04/23/24 Acid Retort Operator Relationship Specialty Start Date End Date Jorge Luis Malik MD [address] [place] [address] PCP - General Family Medicine 12/02/23 Jorge Luis Malik MD [address] [place] [address] PCP - Brittany SORIA 04/02/24 Thomas Hassan MD [address] [place] [address] Referring Physician 04/23/24 Team Status: Active Member Role Status Dates Jorge Luis Malik MD Primary Care Provider Active Team Status: Active Member Role Status Dates Angelina Tapia Attending Provider Active Start: January 25, 2025 Team Status: Active Member Role Status Dates Jorge Luis Malik MD Attending Provider Active Star t: February 01, 2025 Team Status: Inactive Member Role Status Dates Layla Baires Rodriguez , ENDS DOWN CHECKER-[facility] Attending Provider Active Start: February 17, 2025 End: February 17, 2025 Jorge Luis Malik MD Primary Care Provider Active S tart: February 17, 2025 End: February 17, 2025 Reason for Visit (unrecogniz ed section and content) Reason Comments Shortness of Breath Reason Comments Follow-up labs Blood in Urine Only seeing blood wh en first uses restroom in am Reason Comments Medicare Annual Wellness Visit Subsequen t Wellness Reason Comments Post herpetic neuralgia Reason Comments Postherpetic neuralgia Reason Comments Follow-up 6m Neck Pain Goals (unrecognized section and content) Goals may be documented in a n alternate section FOR RECORDS PERTAINING TO PATIENTS WHO ARE [...] BE BASED ON THE PRIMARY CLINICAL RECORDS. [facility]. provides no warranty or guarantee of the accuracy or completeness of information in this document.
--- NOTE | 2025-03-05 14:42 | ED.GENADUL1 ---
HPI HPI - General Adult General Chief complaint: Skin/Abscess/Foreign Body Stated complaint: R SIDE FACIAL SWELLING REDNESS Time Seen by Provider: 03/05/25 14:25 Source: patient Mode of arrival: walk-in Limitations: no limitations History of Present Illness HPI narrative: Patient is a 84-year-old male is coming to the ER after he noticed the swelling in the right side of the face over the last 4 days, he mentioned that it started as itching at that spot in his right side of the face just in front of his ear, then the swelling started getting worse and he denies any fever or chills, also denies any decrease in p.o. intake, he mentioned that he had a history of shingles on the left side and the swelling right now on the right side and he is was worried about shingles The patient mostly have swelling and pain in the area that developed over the last 4 days slowly And he noticed some draiing from it over the last 24 hours Related Data Home Medications ?Medication ?Instructions ?Recorded ?Confirmed glipizide 10 mg tablet 10 mg PO QDAY 11/06/22 08/26/24 metformin 500 mg tablet,extended 500 mg PO QDAY 11/06/22 08/26/24 release 24 hr acetaminophen 325 mg tablet 325 mg PO Q6H PRN pain 08/16/24 08/26/24 (Tylenol) albuterol sulfate 90 mcg/actuation 2 inh inhalation Q6H PRN shortness 08/16/24 08/26/24 aerosol inhaler of breath or wheezing gabapentin 100 mg capsule 100 mg PO Q8H 08/16/24 08/26/24 hydroxyzine HCl 25 mg tablet 25 mg PO Q8H 08/16/24 08/26/24 omeprazole 20 mg capsule,delayed 20 mg PO DAILY 08/16/24 08/26/24 release Previous Rx's ?Medication ?Instructions ?Recorded amoxicillin 500 mg tablet 500 mg PO TID 10 days #30 tabs 03/05/25 Allergies Allergy/AdvReac Type Severity Reaction Status Date / Time codeine Allergy Severe Vomiting Verified 03/05/25 14:14 Opioid HPI Opioid Management Most Recent Opioid Data: Last Pain Scale 7 Today, 14:21 Review of Systems ROS Status of ROS 10 or more systems reviewed and unremarkable except as noted in history and below [facility] Medical History (Updated 03/05/25 @ 16:25 by Shante Austin MD) Dyspnea on exertion ?R06.09 - Other forms of dyspnea (ICD-10) GERD (gastroesophageal reflux disease) ?K21.9 - Gastro-esophageal reflux disease without esophagitis (ICD-10) Herpes zoster ?B02.9 - Zoster without complications (ICD-10) Post herpetic neuralgia ?B02.29 - Other postherpetic nervous system involvement (ICD-10) Diabetes ?E11.9 - Type 2 diabetes mellitus without complications (ICD-10) Hematuria ?R31.9 - Hematuria, unspecified (ICD-10) BPH with obstruction/lower urinary tract symptoms ?N40.1 - Benign prostatic hyperplasia with lower urinary tract symptoms (ICD-10) ?N13.8 - Other obstructive and reflux uropathy (ICD-10) Bladder tumor ?D49.4 - Neoplasm of unspecified behavior of bladder (ICD-10) Surgical History (Updated 08/17/24 @ 13:28 by Esthela Guerrero NP) H/O foot surgery ?Z98.890 - Other specified postprocedural states (ICD-10) H/O transurethral resection of prostate ?Z98.890 - Other specified postprocedural states (ICD-10) ?Z90.79 - Acquired absence of other genital organ(s) (ICD-10) History of colonoscopy ?Z98.890 - Other specified postprocedural states (ICD-10) H/O inguinal hernia repair ?Z98.890 - Other specified postprocedural states (ICD-10) ?Z87.19 - Personal history of other diseases of the digestive system (ICD-10) H/O cystoscopy ?Z98.890 - Other specified postprocedural states (ICD-10) History of hernia repair ?Z98.890 - Other specified postprocedural states (ICD-10) ?Z87.19 - Personal history of other diseases of the digestive system (ICD-10) Family History (Updated 08/16/24 @ 13:43 by Esthela Guerrero NP) Other Family history of cancer Family history of stroke Rheumatoid arthritis Social History (Updated 08/16/24 @ 13:38 by Esthela Guerrero NP) Within the past year, how often did you have a drink containing alcohol: monthly or less Smoking status: Former smoker Non-prescribed substance use: denies use Highest level of school completed/degree received: high school graduate Little interest or pleasure in doing things: not at all Feeling down, depressed, or hopeless: not at all Exam Narrative Exam Narrative: Nurses notes and vital signs reviewed and patient is not hypoxic. General: Well-appearing and in no apparent distress. Skin: Warm, dry, no pallor noted. No rash. Head: Normocephalic, atraumatic. Neck: Supple, non-tender. Eye: Pupils are equal, round and EOMI. No scleral icterus. Ears, Nose, Mouth, and Throat: TM are clear, the right side of the face the patient have swelling that is extending from the area of the anterior of the right auricle up to the midline just by the axilla, the area shows induration and at the middle of it the patient have an area of draining after pressure it drained almost 5 to 7 cc that was sent for culture There is definitely infection sign including redness hotness and draining of pus Cardiovascular: Regular Rate and Rhythm without murmur, gallop or rub. Respiratory: No accessory muscle use or respiratory distress. Back: No midline thoracic or lumbar vertebral tenderness. No CVA tenderness Musculoskeletal: normal ROM, no calf or popliteal tenderness, no lower extremity edema/swelling GI: Abdomen is soft, non-distended. Normal bowel sounds. No masses appreciated. No tenderness to palpation. No rebound, guarding, or rigidity noted. Neurological: A&O x4. No cranial nerve dysfunction observed. No truncal ataxia. Moves all extremities. Sensation intact. Psychiatric: Cooperative and interactive. Normal mood and affect. Constitutional Vital Signs, click to edit/add: Last Vital Signs Temp 97.7 F 03/05/25 14:15 Pulse 60 03/05/25 14:15 Resp 18 03/05/25 14:15 BP 137/89 03/05/25 14:15 Pulse Ox 97 03/05/25 14:15 Course Vital Signs Vital signs: Vital Signs Temperature 97.7 F 03/05/25 14:15 Pulse Rate 60 03/05/25 14:15 Respiratory Rate 18 03/05/25 14:15 Blood Pressure 137/89 03/05/25 14:15 Pulse Oximetry 97 03/05/25 14:15 Temperature 97.7 F 03/05/25 14:15 Pulse Rate 60 03/05/25 14:15 Respiratory Rate 18 03/05/25 14:15 Blood Pressure 137/89 03/05/25 14:15 Pulse Oximetry 97 03/05/25 14:15 Medical Decision Making MDM Narrative Medical decision making narrative: CBC showed no acute pathology Chemistry was showing some acute kidney injury that is mild The patient after adequate pressure there was no more pus drained and I did explain to the patient right now with patient abscess and infection I would recommend IV antibiotic for 24 hours but the patient mentioned that he have his at home where he is her caregiver cannot really stay in the hospital. I did explain to the patient the importance of monitoring symptoms including fever or redness or any increase in swelling Patient had a CAT scan without contrast because of the mild acute kidney injury and the fact that there is low suspicion for abscess with no leukocytosis The patient CAT scan of the face showed no acute pathology for the left tissue swelling and there is no pus collection Right now the patient was provided with Unasyn in the ER as well as discharged home with doxycycline and amoxicillin Instructed multiple time over the importance of monitoring symptom including redness fever or any other concerning, sure that he make an appointment with his primary care doctor on Friday within 2 days The patient is to follow up with primary care physician in next 2-3 days or to return to the emergency department should any of the signs or symptoms worsen or new symptoms develop. The patient agrees with the following Diagnosis and Treatment plan and the patient will be discharged home. Lab Data Labs: Lab Results 03/05/25 Range/Units 14:46 WBC 9.9 (4.0-11.0) 10^3/uL RBC 3.78 L (4.70-6.10) 10^6/uL Hgb 11.7 L (14.0-18.0) g/dL Hct 34.0 L (42.0-54.0) % MCV 89.9 (80.0-94.0) fL MCH 31.0 (25.9-34.0) pg MCHC 34.4 (29.9-35.2) g/dL RDW 12.6 (11.0-15.0) % Plt Count 383 (150-450) 10^3/uL MPV 9.9 (9.5-13.5) fL Neut % (Auto) 67.0 (43.0-75.0) % Lymph % (Auto) 17.1 L (20.5-60.0) % Carlton % (Auto) 9.3 (1.7-12.0) % Eos % (Auto) 5.1 (0.9-7.0) % Baso % (Auto) 1.2 (0.2-2.0) % Neut # (Auto) 6.6 H (1.4-6.5) 10^3/uL Lymph # (Auto) 1.7 (1.2-3.8) 10^3/uL Carlton # (Auto) 0.9 H (0.3-0.8) 10^3/uL Eos # (Auto) 0.5 (0.0-0.7) 10^3/uL Baso # (Auto) 0.1 (0.0-0.1) 10^3/uL Abs Immat Gran (auto) 0.03 (0.00-0.03) 10^3/uL Imm/Tot Granulo (auto) 0.3 (0.0-0.5) % Sodium 139 (136-145) mmol/L Potassium 3.8 (3.5-5.1) mmol/L Chloride 103 (98-107) mmol/L Carbon Dioxide 29.8 (21.0-32.0) mmol/L Anion Gap 10.0 BUN 24.0 H (7.0-18.0) mg/dL Creatinine 1.47 H (0.70-1.30) mg/dL Est GFR ( Amer) 56 L (>=60 mL/min/1.73m^2) Est GFR (Non-Af Amer) 46 L (>=60 mL/min/1.73m^2) BUN/Creatinine Ratio 16.3 Glucose 128 H (74-106) mg/dL Calcium 8.8 (8.5-10.1) mg/dL Total Bilirubin 0.5 (0.2-1.0) mg/dL AST 15 (15-37) U/L ALT 23 (16-63) U/L Alkaline Phosphatase 101 (46-116) U/L Total Protein 7.2 (6.4-8.2) g/dL Albumin 3.0 L (3.4-5.0) g/dL Globulin 4.2 g/dL Albumin/Globulin Ratio 0.7 Discharge Plan Discharge Chief Complaint: Skin/Abscess/Foreign Body Clinical Impression: Abscess of face, Cellulitis of face Patient Disposition: Home, Self-Care Time of Disposition Decision: 16:25 Condition: Good Prescriptions / Home Meds: New amoxicillin 500 mg tablet 500 mg PO TID 10 Days Qty: 30 0RF No Action metformin 500 mg tablet extended release 24 hr 500 mg PO QDAY glipizide 10 mg tablet 10 mg PO QDAY gabapentin 100 mg capsule 100 mg PO Q8H hydroxyzine HCl 25 mg tablet 25 mg PO Q8H albuterol sulfate 90 mcg/actuation HFA aerosol inhaler 2 inh inhalation Q6H PRN (Reason: shortness of breath or wheezing) omeprazole 20 mg capsule,delayed release(DR/EC) 20 mg PO DAILY acetaminophen [Tylenol] 325 mg tablet 325 mg PO Q6H PRN (Reason: pain) Print Language: Finnish Instructions: Cellulitis (ED), Abscess (ED) Additional Instructions: Sure to make an appointment with your primary care Friday and come back to the ER in case of any increasing swelling or any redness increased or fever Referrals: Jorge Luis Sotelo MD [Primary Care Provider, Family Practice] - 1 week Discharge Date/Time: 03/05/25 16:40
[2025-03-05 15:12] LABS: Hematocrit 34.0 % (42.0-54.0); Hemoglobin 11.7 g/dL (14.0-18.0); Immature Granulocytes Abs Auto 0.03 10^3/uL (0.00-0.03); Immature Granulocytes Pct Auto 0.3 % (0.0-0.5); Lymphocytes Absolute Auto 1.7 10^3/uL (1.2-3.8); Mean Corpuscular HGB Conc 34.4 g/dL (29.9-35.2); Mean Corpuscular Hemoglobin 31.0 pg (25.9-34.0); Mean Corpuscular Volume 89.9 fL (80.0-94.0); Platelet Count 383 10^3/uL (150-450); Red Blood Count 3.78 10^6/uL (4.70-6.10); White Blood Count 9.9 10^3/uL (4.0-11.0)
[2025-03-05 15:19] LABS: Alanine Aminotransferase 23 U/L (16-63); Albumin Globulin Ratio 0.7; Albumin Level 3.0 g/dL (3.4-5.0); Alkaline Phosphatase 101 U/L (46-116); Anion Gap 10.0; Aspartate Amino Transferase 15 U/L (15-37); Blood Urea Nitrogen 24.0 mg/dL (7.0-18.0); Calcium 8.8 mg/dL (8.5-10.1); Carbon Dioxide 29.8 mmol/L (21.0-32.0); Chloride 103 mmol/L (98-107); Estimated GFR (African America 56 (>=60 mL/min/1.73m^2); Estimated GFR (Non-African Ame 46 (>=60 mL/min/1.73m^2); Globulin 4.2 g/dL; Glucose 128 mg/dL (74-106); Potassium 3.8 mmol/L (3.5-5.1); Sodium 139 mmol/L (136-145); Total Protein 7.2 g/dL (6.4-8.2)
--- NOTE | 2025-03-05 15:40 | CT_ITS ---
The [address] [address] Patient Name: JAM RAMIREZ MRN: [id number] date: 1940 Sex: M Assigned Patient Location: ER Current Patient Location: ER Accession/Order Number: [id number] Exam Date: 03/05/2025 15:52 Report Date: 03/05/2025 16:07 At the request of: LAZARO SCHRADER MD Procedure: CT facial bones wo con MAXILLOFACIAL CT WITHOUT CONTRAST: CLINICAL HISTORY: right face infection ramiro not contrast COMPARISON: None TECHNIQUE: Spiral axial unenhanced images were obtained through the facial bones. Coronal and sagittal reconstructions were also reviewed. This CT exam was performed using one or more following dose reduction techniques: Automated exposure control, adjustment of the mA and/or kV according to patient size, or use of iterative reconstruction technique. FINDINGS: No facial bone fracture. Zygomatic arches and pterygoid plates appear intact. Maxilla and mandible appear intact. Mild pansinusitis. Nasal septum is relatively midline. No orbital fracture. Mild right cheek soft tissue swelling. No fluid collection to suggest abscess. Nasopharynx appears unremarkable. CT/CT facial bones wo con IMPRESSION: MILD SOFT TISSUE SWELLING WITHOUT ABSCESS OR BONY DESTRUCTION. Impression dictated by: Earnest Garcia Jr., D.O. 03/05/2025 4:07 PM Dictation Location[facility] Electronically authenticated by: [id number] Y Date: 03/05/2025 16:07
[2025-03-05] MEDS: 0.9 % SODIUM CHLORIDE 1,000 ML 500 ML IV (15:51)
[2025-03-05] MEDS: CEFAZOLIN SODIUM/DEXTROSE,ISO 1 GM/50 ML PREMIX IV (15:59)
[2025-03-05] MEDS: DOXYCYCLINE MONOHYDRATE 100 MG CAPSULE PO (15:59)
== END 2025-03-05 16:40 | disposition home or self-care (01) ==
PROVIDERS: Emergency Provider Emergency Medicine; PCP Family Medicine
DX: L02.01 Cutaneous abscess of face (principal); L03.211 Cellulitis of face; N17.9 Acute kidney failure, unspecified; Z87.891 Personal history of nicotine dependence
CPT/HCPCS: 36415; 70486; 80053; 85025; 87070; 87075; 87077; 87186; 96365; 99284; J0690

== ENCOUNTER 2025-03-31 13:25 | Outpatient (OUT) | payer MEDICARE, SELFPAY ==
--- OUTSIDE RECORDS SUMMARY | 2025-03-21 13:15 | XMS_ITS | Encounter Summary ---
Author Organization [facility] Address [address] [place] [address] Care Team Providers Care Utility Lineman Name Role Phone Jorge Luis Sotelo MD Primary Care Provider [phone] Encounter Details DateTypeDepartmentCare Team (Latest Contact Info)Qymgogyyawy06/20/2025 1:15 PM EDTOffice Visit [facility] [address] [place] [address] Kristen Gill MD [address] [facility] [address] [facility] [place] [address] Preoperative clearance (Primary Dx); Abnormal EKG; Benign hypertensive heart disease without congestive heart failure; Chronic obstructive pulmonary disease, unspecified COPD type ([facility]/HCC) Social History Tobacco UseTypesPacks/DayYears UsedDateSmoking Tobacco: FormerCigarettes Smokeless Tobacco: NeverAlcohol UseStandard Drinks/WeekCommentsNot Currently0 (1 standard drink = 0.6 oz pure alcohol)Sex and Gender InformationValueDate RecordedSex Assigned at AytxyHlte81/09/2025 11:28 AM EDTLegal AmqXerz3008/18/2024 2:40 PM EDTGender TxmvzsmlFdid10/09/2025 11:28 AM EDTSexual Orientation Heterosexual or Rudlxhay50/09/2025 11:28 AM EDTdocumented as of this encounter Last Filed Vital Signs Vital SignReadingTime TakenCommentsBlood Bhjscavq457/7103/21/2025 1:10 PM EDT Cpyuf759503/21/2025 1:10 PM EDTTemperature--Respiratory Rate--Oxygen Ahsmsbbziw76% 03/21/2025 1:10 PM EDTInhaled Oxygen Concentration--Gbpzup29.8 kg (176 lb) 03/21/2025 1:10 PM QDIZrrcsj312.8 cm (5' 10 )03/21/2025 1:10 PM EDTBody Mass Index25.251 1:10 PM EDTdocumented in this encounter Functional Status * BPAnswerDate of HgtqpdocuqOcutgl664/7103/21/2025 1:10 PM EDRandi Puente MA * PulseAnswerDate of QumgujquqhKpanil9371/20/2025 1:10 PM EDRandi Puente MA * Patient PositionAnswerDate of IlduruwrbwRoktvuUewevge97/20/2025 1:10 PM EDT Randi Ly MA * BPAnswerDate of GsgumqtyttAxocdh620/7103/21/2025 1:10 PM EDRandi Puente MA * PulseAnswerDate of BiczfjxalcRlohcc6772/20/2025 1:10 PM EDRandi Puente MA * OiO2ZnbsvcGiuq of HxkyggokmcGbrhbv0150/20/2025 1:10 PM EDRandi Puente MA * BP LocationAnswerDate of AssessmentAuthorRight arm03/21/2025 1:10 PM EDT Randi Ly MA * Patient PositionAnswerDate of MooeigzhoiZelwzrYehdvyh24/20/2025 1:10 PM EDT Randi Ly MA documented as of this encounter Progress Notes * Kristen Gill MD - 03/21/2025 1:15 PM EDT Images from the original note were not included. [facility] Cardiology Clinic Note Chief Complaint: Patient here for a follow up Coreg decreased to 3.125. Patient states he just found out this am that his bladder cancer has returned and will be having surgery to have it surgical removed at the end of the month. Patient denies chest pain, leg swelling, heart racing/palpations.Patient complains of lightheaded/dizziness, fatigue, SOB/TORRES. HPI: Maged Espinal Jr. is a 84 y.o. male With [...] that improves as the day goes on. Update 03/21/2025 Doing well; no chest pain, shortness of breath is stable No orthopnea, no paroxysmal external dyspnea, no lower extremity edema Review of Systems Constitutional: Positive for malaise/fatigue. Cardiovascular: Positive for dyspnea on exertion and palpitations. Chest pain: left shoulder on occasion. Leg swelling: minimal. Respiratory: Positive for shortness of breath (with exertion). Neurological: Positive for dizziness and light-headedness. Past Medical History He has a past medical history of Bladder cancer (CMS/HCC), COPD (chronic obstructive pulmonary disease) (CMS/HCC), Diabetes mellitus (CMS/HCC), Hematuria, Hyperlipidemia, and Shingles. Surgical History He has no past surgical history on file. Social History He reports that he has quit smoking. His smoking use included cigarettes. He has never used smokeless tobacco. He reports that he does not currently use alcohol. He reports that he does not use drugs. Family History No family history on file. [...] mg) by mouth with breakfast and with eveningmeal., Disp: 180 tablet, Rfl: 3 gabapentin (Neurontin) 100 mg capsule, Take 100 mg by mouth 3 times a day., Disp: , Rfl: glipiZIDE (Glucotrol) 10 mg tablet, 10 mg., Disp: , Rfl: hydroCHLOROthiazide (HYDRODiuril) 25 mg tablet, Take 1 tablet (25 mg) by mouth once daily as directed. (Patient taking differently: Take 25 mg by mouth two times daily.), Disp: 90 tablet, Rfl: 3 lisinopril 10 [...] 300 mg by mouth two times daily. (Patient not taking:Reported on 12/14/2024), Disp: , Rfl: Last Recorded Vitals BP 120/71 (BP Location: Right arm, Patient Position: Sitting) Pulse 87 Ht 1.778 m (5' 10 ) Wt79.8 kg (176 lb) SpO2 92% BMI 25.25 kg/m?? Physical Examination: GENERAL: alert and oriented x3, [...] branch block, minimal voltage criteria for LVH Echocardiogram/03/2025: Global left ventricular systolic function is normal; visually estimated ejection fraction is 55% Moderate left ventricular hypertrophy Normal right ventricular size and systolic function Diastolic function is indeterminate The left atrium is mildly dilated Mild aortic valve regurgitation The aortic root and ascending aorta are mildly dilated Labs 12/2024: BUN 22, creatinine 1.28 remainder of his electrolytes are normal. Assessment: Exertional shortness of breath Chronic obstructive pulmonary disease Hypertension; poorly controlled Left ventricular hypertrophy Right bundle branch block on EKG The aortic root and ascending aorta are mildly dilated Mild aortic valve regurgitation Diabetes mellitus type 2 Hematuria Preoperative evaluation Plan: Given the patient's physical tolerance, absence of significant cardiovascular disorders, he would be at acceptable risk to proceed with surgery with no further cardiovascular testing needed. Recommend strict heart rate and blood pressure control and avoidance of major fluid shifts perioperatively. Continue to take reduced dose Coreg 3.125 mg p.o. twice daily given his difficult to control blood pressure as well as aortic dilatation He is to monitor blood pressure and check an hour after a.m. and p.m. medications and to keep a log He will need annual echocardiograms to monitor his valvular heart disease as well as the dilatationof the aortic root and ascending aorta RTC in 6 months Kristen Gill MD, MPH, FACC, [facility], [facility] Interventional Cardiology Pager Email: [email or web address] documented in this encounter Plan of Treatment Not on file documented as of this encounter Visit Diagnoses Diagnosis Preoperative clearance- Primary Unspecified pre-operative examination Abnormal EKG Nonspecific abnormal electrocardiogram (ECG) (EKG) Benign hypertensive heart disease without congestive heart failure Benign hypertensive heart disease without heart failure Chronic obstructive pulmonary disease, unspecified COPD type (CMS/[facility]) documented in this encounter Care Teams Team MemberRelationshipSpecialtyStart DateEnd Date Jorge Luis Sotelo MD [address] [place] [address] PCP - GeneralFamily Medicine08/18/24documented as of this encounter
--- NOTE | 2025-03-31 13:26 | ECG_ITS ---
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 Measurements Intervals [place] Rate: 67 P: 48 LA: 177 QRS: -17 QRSD: 125 T: 23 QT: 430 QTc: 456 Interpretive Statements SINUS RHYTHM RIGHT BUNDLE BRANCH BLOCK [120+ ms QRS DURATION, UPRIGHT V1, 40+ ms S IN I/aVL/V4/V5/V6] Abnormal ECG Compared to ECG 08/16/2024 13:55:02 No significant changes Electronically Signed On 03-31-2025 14:21:51 EDT by KATHY TELLEZ M.D.
--- OUTSIDE RECORDS SUMMARY | 2025-03-31 13:26 | XMS_ITS | Clinical Summary ---
Author Organization [employer] [facility] tem Address [id number] [address] [place] [address] Care Team Providers Care Wood Fuel Pelletizer Name Role Phone Jorge Luis Sotelo MD Primary Care Provider [phone] Allergies Active AllergyReactionsCriticalityNoted ZmcoJzqxjbsmAzjhkatSfyfxprqCwd04/22/2020 Medications MedicationSigDispense QuantityRefillsLast FilledStart DateEnd DateStatus naproxen sodium (ALEVE) 220 mg capsule Take 220 mg by mouth every 8 (eight) hours as needed.Active omeprazole (PriLOSEC) 20 mg capsule Take 20 mg by mouth daily.Active Active Problems No known active problems Family History Medical HistoryRelationNameCommentsHeart diseaseFatherStrokeFatherCancerMother RelationNameStatusCommentsFatherDeceasedMotherDeceased Social History Tobacco UseTypesPacks/DayYears UsedDateSmoking Tobacco: FormerSmokeless Tobacco: NeverAlcohol UseStandard Drinks/WeekCommentsNever0 (1 standard drink = 0.6 oz pure alcohol)AUDIT-CAnswerDate RecordedFrequency of Alcohol ConsumptionNever 06/23/2019Average Number of DrinksNot on file06/23/2019Frequency of Binge DrinkingNot on file06/23/2019ChildcareAnswerDate RecordedChildcareUnknown 11/11/2018EmploymentAnswerDate LpybthpbBdlunzenrnLdrkluf50/12/2019Purpose - Life AnswerDate RecordedPurpose and direction in rpvoEhoguga43/11/2021Sex and Gender InformationValueDate RecordedSex Assigned at BirthNot on fileLegal SexMale 01/05/2015 11:35 AM EDTGender IdentityNot on fileSexual OrientationNot on file Last Filed Vital Signs Vital SignReadingTime TakenCommentsBlood Prrsisdp754/9907/20/2019 2:45 PM EST Unuod731307/20/2019 2:55 PM MREEnbyxkcgcha95.4 ??C (97.6 ??F)07/20/2019 12:37 PM ESTRespiratory Kegu303207/20/2019 12:37 PM ESTOxygen Tzuoxmryqt08%07/20/2019 2:55 PM ESTInhaled Oxygen Concentration--Gybenx94.9 kg (185 lb)07/20/2019 12:37 PM QCOMrfknw613.8 cm (5' 10 )07/20/2019 12:37 PM ESTBody Mass Index26.54007/20/2019 12:37 PM EST Plan of Treatment Health MaintenanceDue DateLast DoneCommentsDepression Bqlzaulyo78/02/1954Tobacco Bbdlnotce98/02/1954TaP,Tdap and Td Vaccines (1 - Tdap)1961Zoster (Shingles) Vaccine (1 of 2)1992Fall Risk Ucqrloumh63/02/2007Influenza Kcivduf45, 02/11/2018, 04/10/2016, Additional history exists Medical Devices ImplantedTypeAreaManufacturerDevice IdentifierShelf Expiration DateModel / Serial / LotLens Iol Ultrasert 20.0d - [id number] - [id number] Implanted:Qty: 1 on 06/29/2019 by Emily Guillory MD at [facility]: [employer]01/27/2022AU00T0 20.0 / [id number] / Lens Iol Ultrasert 20.0d - [id number] - [id number] Implanted:Qty: 1 on 07/20/2019 [facility] [employer]02/17/2022AU00T0 20.0 / [id number] / Insurance Care Teams Team MemberRelationshipSpecialtyStart DateEnd Date Jorge Luis Sotelo MD PCP - GeneralFamily Medicine06/29/19
--- OUTSIDE RECORDS SUMMARY | 2025-03-31 13:26 | XMS_ITS | Clinical Summary ---
Author Organization [facility] Healthcare Address [address] [place] [address] Care Team Providers Care Silk Spooler Name Role Phone Jorge Luis Sotelo MD Primary Care Provider [phone] Thomas Hassan MD Unavailable Jorge Luis Sotelo MD Unavailable Allergies Active AllergyReactionsCriticalityNoted MsvpGssbqkceEspflhm06/18/2024 Medications MedicationSigDispense QuantityRefillsLast FilledStart DateEnd DateStatus albuterol HFA 90 mcg/act inhaler Inhale 2 puffs every 4 (four) hours if needed for wheezingActive albuterol (2.5 MG/3ML) 0.083% nebulizer solution Take 2.5 mg by nebulization every 4 (four) hours if needed for wheezingActive omeprazole (PriLOSEC) [address] capsule Take 20 mg by mouth in the morning. Take before meals. Do not crush or chew. Active acetaminophen (Tylenol) 325 MG tablet Take by mouthActive [facility] Olopatadine HCl 0.2 % ophthalmic solution Administer 1 drop into the left eye in the morning and 1 drop before bedtime. 4Active gabapentin (Neurontin) 100 MG capsule Indications:Post herpetic neuralgiaTake 1 capsule (100 mg) by mouth in the morning and 1 capsule (100 mg) in the evening and 1 capsule(100 mg) before bedtime. 90 capsule 5Active Additional Information Patient taking differently:100 mg OralNightly PRN, Reported on 10/28/2024 ALPRAZolam (Xanax) 0.25 MG tablet Indications:Generalized anxiety disorderTake 1 tablet (0.25 mg) by mouth 3 (three) times a day as needed for anxiety for up to 10 days 30 tablet 5Active metFORMIN XR (Glucophage-XR) 500 MG 24 hr tablet Indications:Type 2 diabetes mellitus with hyperglycemia, without long-term current use of insulin (HCC)Take 1 tablet (500 mg) by mouth Daily 90 tablet 5Active hydroCHLOROthiazide (HYDRODiuril) 25 MG tablet Take 25 mg by mouth Dailyctive hydrOXYzine HCl (Atarax) 25 MG tablet 25 mg5Active methocarbamol (Robaxin) 750 MG tablet 12/02/2023ctive lisinopril 10 MG tablet Take 10 mg by mouthctive glipiZIDE (Glucotrol) 10 MG tablet Indications:Type 2 diabetes mellitus with hyperglycemia, without long-term current use of insulin (HCC)TAKE 1 TABLET (10 MG) BY MOUTH DAILY. 90 tablet 5Active OXcarbazepine (Trileptal) 300 MG tablet Indications:Post herpetic neuralgiaTake 1 tablet (300 mg) by mouth in the morning and 1 tablet (300 mg) before bedtime. 180 tablet 5Active carvedilol (Coreg) 6.25 MG tablet Take 6.25 mg by mouth in the morning and 6.25 mg in the evening. Take with meals.Active OneTouch Ultra Test test strip Indications:Type 2 diabetes mellitus with hyperglycemia (HCC)USE TO TEST ONCE A DAY 50 strip 1105Active Active Problems ProblemNoted DateDiagnosed DateBenign essential /05/2025 Assessment & Plan (01/04/2025 2:21 PM EDT): BP controlled and monitor PRN. Urothelial carcinoma of dtjldoo0709/28/2024 Assessment & Plan (01/04/2025 2:21 PM EDT): Follow with urology. Isbkenmj40/24/2025PH with urinary gntonkgcfbc10/24/2025Medicare annual wellness visit, yhkooxmxyj34/05/2025 Assessment & Plan (07/07/2024 2:15 PM EST): Due for labs. Discussed proper diet and regular aerobic exercise. Need aerobic exercise 5-6 days a week for 30 minutes at a time. Smaller portions and limit total calories. Tetanus every 10 years. Advised not to smoke. Statin ndzjyglm30/05/2025Encounter for long-term (current) use of medications 05/17/2024Encounter for screening prostate specific antigen (PSA) measurement 05/17/2024Lumbar byzqquyqykn45/02/2024 Assessment & Plan (01/04/2025 2:21 PM EDT): Pain stable and continue walking. Use robaxin PRN. Assessment & Plan (01/06/2024 1:49 PM EDT): Pain improved and continue walking. Use robaxin PRN. Assessment & Plan (12/02/2023 2:02 PM EDT): Increased pain and history suggestive of pinched nerve. Check x-ray. Recommended PT but states he'sdone it in past and will resume home exercises. Start robaxin for spasms and ultram for pain. If noimprovement will need MRI. COPD (chronic obstructive pulmonary disease)07/07/2023 Assessment & Plan (01/04/2025 2:21 PM EDT): [...] EST): Breathing stable and use albuterol PRN. Mvhkcbdhxril74/05/2024 Assessment & Plan (07/07/2024 2:15 PM EST): Prior statin intolerance. Generalized anxiety kvvtupmm53/05/2024 Assessment & Plan (01/04/2025 2:21 PM EDT): Occasional symptoms but tolerable and use xanax PRN. Assessment & Plan (01/06/2024 1:48 PM EDT): Occasional symptoms but tolerable and use xanax PRN. Assessment & Plan (07/07/2023 2:22 PM EST): Occasional symptoms but tolerable and use xanax PRN. Adult feyvuddbcquvca30/05/2024Persistent disorder of initiating or maintaining sleep4Post herpetic /05/2024 Assessment & Plan (01/04/2025 2:21 PM EDT): [...] and continue. Type 2 diabetes mellitus with gscohnavzqnpl24/05/2024 Assessment & Plan (01/04/2025 2:21 PM EDT): [...] and limit carbs. Gastroesophageal reflux disease without /05/2024 Assessment & Plan (01/06/2024 1:48 PM EDT): Symptoms controlled with medication and continue. Assessment & Plan (07/07/2023 2:21 PM EST): Symptoms controlled with medication and continue. Resolved Problems ProblemNoted DateDiagnosed DateResolved DateBladder neoplasm of uncertain malignant ckueortwm05/09/2024Gross amafppiuc58 Assessment & Plan (06/14/2024 1:38 PM EST): Reports blood in urine off and on of unclear etiology. Check urine and refer to urology for possible cystoscopy. Elevated blood pressure reading without diagnosis of bmsgsusizgnv94/05/2024 05/17/2024 Encounters DateTypeDepartmentCare SdqwZpoibzhrwdu01/16/2025[facility] [address] [place] [address] Jorge Luis Sotelo MD Type 2 diabetes mellitus with hyperglycemia (HCC)01/04/2025 1:30 PM EDTOffice Visit [facility] [address] [place] [address] Jorge Luis Sotelo MD Type 2 diabetes mellitus with hyperglycemia, without long-term current use of insulin (HCC) (Primary Dx); Benign essential hypertension ; Chronic obstructive pulmonary disease, unspecified COPD type (HCC); Generalized anxiety disorder ; Lumbar spondylosis; Post herpetic neuralgia ; Urothelial carcinoma of bladder (HCC)5Bamboo flowsheet [facility] [address] [place] [address] Jorge Luis Sotelo MD from Last 3 Months Immunizations ImmunizationAdministration DatesNext DueInfluenza, High Dose Seasonal, Preservative Free03/10/2019,02/11/2018,04/10/2016,03/10/2015Influenza, High-dose Seasonal, Quadrivalent, Preservative Free04/08/2022Influenza, Seasonal, Quadrivalent, Khktkdvrtx06/06/2023,1Pfizer Purple Cap SARS-CoV-2 Wceeuvhlifv03/20/2021,07/21/2020,1Pneumococcal Conjugate PCV 20 4Pneumococcal Polysaccharide UTSF3063Unknown outside uprtmejyrtjg65/11/2020Zoster, Ubtnrwdpdrp78/12/2024,10/07/2023 Family History Medical HistoryRelationNameCommentsCoronary artery diseaseFatherDiabetesFather CancerMotherLung cancerMotherRelationNameStatusCommentsFatherMother Social History Tobacco UseTypesPacks/DayYears UsedDateSmoking Tobacco: [id number] - 1968Smokeless Tobacco: Never Tobacco Cessation:Counseling Given: Not Answered Alcohol UseStandard Drinks/WeekCommentsNot Currently0 (1 standard drink = 0.6 oz pure alcohol)PHQ-2AnswerDate RecordedPatient Health Questionnaire-2 Score0 07/07/2024Sex and Gender InformationValueDate RecordedSex Assigned at BirthNot on fileLegal NafTcox2001/14/2023 10:18 AM EDTGender IdentityNot on fileSexual OrientationNot on file Last Filed Vital Signs Vital SignReadingTime TakenCommentsBlood Eeqdwhvw967/78001/04/2025 1:44 PM EDT Cixug5097/05/2025 1:44 PM BQXQeafrzwpyor06.2 ??C (97.1 ??F)01/04/2025 1:44 PM EDTRespiratory Zkle923301/04/2025 1:44 PM EDTOxygen Kjjwcxeinl71%01/04/2025 1:44 PM EDTInhaled Oxygen Concentration--Uqfjze16.5 kg (173 lb)01/04/2025 1:44 PM EDT Qxnxae312.8 cm (5' 10 )01/04/2025 1:44 PM EDTBody Mass Index24.8201/04/2025 1:44 PM EDT Plan of Treatment Health MaintenanceDue DateLast DoneCommentsDiabetes: Hemoglobin A1C11/22/2024 05/24/2024, 01/20/2024, 05/02/2023Influenza Vaccine (#1)/10/2022, 04/08/2022, 03/22/2021, Additional history existsDiabetes: Urine Protein Rqmdcymal57/, 05/02/2023Medicare Annual Wellness (AWV) Diabetes: Retinopathy Xxbaykqoe27/08/2023 Pneumococcal Vaccine: 65+ ZblmkKebmdxvoq61/12/2024, 08/21/2010 Insurance * Guarantor: Maged Esipnal Jr.Account TypeRelation to PatientDate of BirthPhone Billing AddressPersonal/[address] [place] [address] Care Teams Team MemberRelationshipSpecialtyStart DateEnd Date Jorge Luis Sotelo MD PCP - GeneralFamily Medicine12/02/23 Jorge Luis Sotelo MD [address] [place] [address] PCP - Brittany SORIA04/02/24 Thomas Hassan MD [address] [place] [address] Referring Wddsoxdet20/22/24
--- OUTSIDE RECORDS SUMMARY | 2025-03-31 13:26 | XMS_ITS | Clinical Summary ---
Author Organization [facility] Address [address] [place] [address] Care Team Providers Care Stock Drier Tender Name Role Phone Jorge Luis Sotelo MD Primary Care Provider [phone] Allergies Active AllergyReactionsCriticalityNoted DateCommentsCodeineNausea Only08/23/2024 Medications MedicationSigDispense QuantityRefillsLast FilledStart DateEnd DateStatus gabapentin (Neurontin) 100 mg capsule Take 100 mg by mouth 3 times a day.5Active metFORMIN XR (Glucophage-XR) 500 mg 24 hr tablet Take 500 mg by mouth in the morning.5Active omeprazole (PriLOSEC) [address] capsule Take 20 mg by mouth.Active OXcarbazepine (Trileptal) 300 mg tablet Take 300 mg by mouth two times daily.03/08/2024ctive glipiZIDE (Glucotrol) 10 mg tablet 10 mg.10/09/2023ctive ALPRAZolam (Xanax) 0.25 mg tablet TAKE 1 TABLET BY MOUTH 3 TIMES A DAY NEEDED FOR ANXIETY FOR UP TO 10 DAYS Active albuterol 90 mcg/actuation inhaler Inhale 2 puffs every 4 (four) hours if needed.Active lisinopril 10 mg tablet Indications:Benign hypertensive heart disease without congestive heart failure Take 1 tablet (10 mg) by mouth once daily as directed. 90 tablet /ctive hydroCHLOROthiazide (HYDRODiuril) 25 mg tablet Indications:Benign hypertensive heart disease without congestive heart failure Take 1 tablet (25 mg) by mouth once daily as directed. 90 tablet /ctive Additional Information Patient taking differently:25 mg oral2 times daily, Reported on 03/21/2025 carvedilol (Coreg) 6.25 mg tablet Indications:Benign hypertensive heart disease without congestive heart failure Take 1 tablet (6.25 mg) by mouth with breakfast and with evening meal. 180 tablet 5009/28/2025ctive pregabalin (Lyrica) 25 mg capsule Take 25 mg by mouth in the morning and at bedtime.Active Active Problems ProblemNoted DateDiagnosed DateCognitive llkhnblavo27/20/2025History of bladder svigzj7103/18/2025enign essential dkaqodhuozoc43/05/8865Sfibsmrmqfdm36/29/2025 Urothelial carcinoma of uquyidi2009/28/2024ladder neoplasm of uncertain malignant ypjmxwnrl55/24/2025PH with urinary abuufaoeohu70/24/7212Ewzoefql01/24/2025 Statin uenrciis20/05/2025Medicare annual wellness visit, zsdhpgiahy10/05/2025 Gross wctfkwjvu85/13/2025Encounter for screening prostate specific antigen (PSA) dtmfexubacl48/16/2024Lumbar vagbimqddau55/02/2024dult wcopuzcpbgvfbd02/05/2024 COPD (chronic obstructive pulmonary disease)07/07/20238585Rvbrgcaqtwoz98/05/2024 Gastroesophageal reflux disease without qigujrrlseq98/05/2024Generalized anxiety qdthsico40/05/2024ersistent disorder of initiating or maintaining sleep 07/07/2023ost herpetic jeensbdzq11/05/2024Type 2 diabetes mellitus with igmudxiufndmm62/05/2024 Encounters DateTypeDepartmentCare MdtoGeqabmuruuo70/20/2025 1:15 PM EDTOffice Visit [facility] [address] [place] [address] Kristen Gill MD Preoperative clearance (Primary Dx); Abnormal EKG; Benign hypertensive heart disease without congestive heart failure; Chronic obstructive pulmonary disease, unspecified COPD type (CMS/HCC)from Last 3 Months Family History RelationNameStatusCommentsFatherDeceasedMotherDeceased Social History Tobacco UseTypesPacks/DayYears UsedDateSmoking Tobacco: FormerCigarettes Smokeless Tobacco: Never Tobacco Cessation:Counseling Given: Not Answered Alcohol UseStandard Drinks/WeekCommentsNot Currently0 (1 standard drink = 0.6 oz pure alcohol)Sex and Gender InformationValueDate RecordedSex Assigned at Male12/08/2024 11:28 AM EDTLegal BxrXhoj3908/18/2024 2:40 PM EDTGender Identity Male12/08/2024 11:28 AM EDTSexual OrientationHeterosexual or Gmctojnn15/09/2025 11:28 AM EDT Last Filed Vital Signs Vital SignReadingTime TakenCommentsBlood Ntvfhayo361/7103/21/2025 1:10 PM EDT Eidbd912203/21/2025 1:10 PM EDTTemperature--Respiratory Rate--Oxygen Ywdqskhyke76% 03/21/2025 1:10 PM EDTInhaled Oxygen Concentration--Wuvjdr10.8 kg (176 lb) 03/21/2025 1:10 PM SQFMlwnha449.8 cm (5' 10 )03/21/2025 1:10 PM EDTBody Mass Index25.251 1:10 PM EDT Plan of Treatment Health MaintenanceDue DateLast DoneCommentsDiabetes: Hemoglobin A1C1940 Medicare Annual Wellness (AWV)2Diabetes: Retinopathy Screening 2Depression Aqdhwzgvo60/02/1954Diabetes: Urine Protein Screening 1Adult Qpfepjp4205/03/1964Fall Risk Jdwubmxrl00/02/2007COVID-19 Vaccine ( season), 07/21/2020, 06/30/2020Influenza Vaccine (#1)51, 04/08/2022, 03/22/2021, Additional history existsPneumococcal Vaccine: 50+ PohpcAnybmptkp79/12/2024, 08/21/2010Zoster CywbwdkaZvohhzdqb16/12/2024, 10/07/2023HIB VaccinesAged OutNo longer eligible based on patient's age to complete this topicHPV VaccinesAged OutNo longer eligible based on patient's age to complete this topicIPV VaccinesAged OutNo longer eligible based on patient's age to complete this topicMeningococcal B VaccineAged OutNo longer eligible based on patient's age to complete this topic Meningococcal VaccineAged OutNo longer eligible based on patient's age to complete this topicRotavirus VaccinesAged OutNo longer eligible based on patient's age to complete this topic Insurance Care Teams Team MemberRelationshipSpecialtyStart DateEnd Date Jorge Luis Sotelo MD [address] [facility] [place] [address] PCP - GeneralFamily Medicine08/18/24
--- OUTSIDE RECORDS SUMMARY | 2025-03-31 13:38 | XMS_ITS | CCD ---
Author Organization [facility] CliniSywv Care Team Providers Care Patient Registration Clerk Name Role Phone KING, DR JORGE LUIS [...] Jorge Luis Malik MD Primary Care Provider Thomas Hassan MD Unavailable Jorge Luis Malik MD Unavailable JORGE LUIS MALIK Primary Care Physician Lalo SOUZA Attending Unavailable Lalo SOUZA Attending Unavailable NADERERayne, JORGE LUIS Referring Unavailable Lalo SOUZA Admitting Unavailable Lalo SOUZA Attending Unavailable Lalo Souza MD Attending Provider Lalo Souza Admitting Unavailable Lalo Souza Attending Unavailable ROBERTO ROBLEDO Attending Unavailable THOMAS HASSAN Referring Unavailable NADERER, JORGE LUIS Attending Unavailable NADERER, JORGE LUIS Attending Unavailable NADERER, JORGE LUIS Attending Unavailable RODRIGUEZ, LAYLA Attending Unavailable RODRIGUEZ, LAYLA Attending Unavailable NADERER, JORGE LUIS Attending Unavailable NADERERayne, JORGE LUIS Attending Unavailable Angelina Tapia Attending Provider Unavailable Jorge Luis Malik MD Attending Provider Michael MAYO-ARMATURE VARNISHER-C, Layla Baires Attending Provider Jorge Luis Malik MD Primary Care Provider KRISTEN GILL Attending Unavailable ELTAHAWY, EHAB Attending Unavailable [place]TAHAWY, EHAB Attending Unavailable [place], EHAB Attending Unavailable SOUZA, Lalo R Attending Unavailable SOUZA, Lalo R Referring Unavailable SOUZA, Lalo R Attending Unavailable SOUZA, Lalo R Attending Unavailable RADHA, NGHIA E Attending Unavailable SOUZA, Lalo R Attending Unavailable RADHA, NGHIA E Attending Unavailable RADHA, NGHIA E Attending Unavailable RADHA, NGHIA E Attending Unavailable SOUZA, Lalo R Attending Unavailable Rebeca, Shannan Attending Unavailable Rebeca, Shannan Attending Unavailable Rebeca, Shannan Attending Unavailable SOUZA, Lalo R Attending Unavailable RADHA, NGHIA E Attending Unavailable RADHA, NGHIA E Attending Unavailable RADHA, NGHIA E Attending Unavailable SOUZA, Lalo R Admitting Unavailable SOUZA, Lalo R Attending Unavailable SOUZA, Lalo R Attending Unavailable SOUZA, Lalo R Attending Unavailable SOUZA, Lalo R Attending Unavailable SOUZA, Lalo R Admitting Unavailable SOUZA, Lalo R Attending Unavailable SOUZA, Lalo R Attending Unavailable Allergies Allergy ClassificationReported Allergen(s)Allergy TypeDate of OnsetReaction(s) Facility (5 sources)Codeine; Translations: [codeine]Drug Htqteox64-53-9035[facility] (20 sources)Codeine; Translations: [codeine]Drug Scfttdc28-20-2589 Lightheadedness (finding)[facility] Medications Current Medications MedicationDrug Class(es)DatesSig (Normalized)Sig (Original)acetaminophen 500 mg oral tablet (20 sources)Start: 28-93-1322ivqy 500 mg by mouth three times dailyTylenol 500 mg, Oral, TID, Refills(s) 0 Start Date: 07/05/24 Status: Ordered Repeat number: 1 acetaminophen (Tylenol) 325 MG tablet Take by mouth Activealbuterol 0.83 mg/ml inhalation solution (20 sources)beta2-Adrenergic AgonistStart: 92-14-3326gmor 2.5 mg by inhalation every four hours as neededAlbuterol Sulfate 2.5 mg /3 mL (0.083 %) solution for nebulization Active 2.5 MG INHALATION Every 4hours as needed March 10, 2025 12:00am Complies with drug therapyStart: 76-36-9425xwyw 1 puff(s) by inhalation every four hours as neededAlbuterol Sulfate 90 mcg/actuation HFA aerosol inhaler Active 2 PUFF INHALATION Every 4 hours as needed March 10, 2025 12:00am Complies with drug therapyStart: 66-37-0283kgwcendzi See Instructions, Refills(s) 0 Start Date: 07/05/24 Status: Ordered Repeat number: 1Start: 95-90-7449nltlwqvyf See Instructions, Refills(s) 0 Start Date: 07/05/24 Status: Orderedalbuterol (2.5 MG/3ML) 0.083% nebulizer solution Take 2.5 mg by nebulization every 4 (four) hours if needed for wheezing Activetake 2 puff(s) by inhalation every four hours for wheezingalbuterol HFA 90 mcg/act inhaler Inhale 2 puffs every 4 (four) hours if needed for wheezing ActiveALPRAZolam 0.25 mg oral tablet (20 sources)BenzodiazepineStart: 45-76-5274hxku 1 tablet by mouth three times daily as neededAlprazolam 0.25 mg tablet Active 0.25 MG PO Three times daily as needed March 10, 2025 12:00am Complies with drug therapyStart: 21-00-8930bkqb 1 tablet by mouth three times daily as needed for anxietyALPRAZolam (Xanax) 0.25 MG tablet Indications: Generalized anxiety disorder Take 1 tablet (0.25 mg) by mouth 3 (three) times a day as needed for anxiety for up to 10 days 30 tablet 08/16/2024 Activetake 1 tablet by mouth three times daily as needed for anxiety ALPRAZolam (Xanax) 0.25 MG tablet Take 0.25 mg by mouth 3 (three) times a day as needed for anxietyActivecarvedilol 6.25 mg oral tablet (5 sources)alpha-Adrenergic Karol, beta-Adrenergic BlockerStart: 03-21-2025 carvedilol 6.25 mg Tab 6.25 mg = 1 tab(s) Start Date: 03/21/25 Status: Ordered Repeat number: 1Start: 69-44-5883dvkt 1 tablet by mouth twice dailytake 1 tablet by mouth in the morningcarvedilol (Coreg) 6.25 MG tablet Take 6.25 mg by mouth in the morning and 6.25 mg in the evening. Take with meals. Activegabapentin 100 mg oral capsule (20 sources)Anti-epileptic AgentStart: 06-23-2024 End: 46-24-3877cqjiqljume 100 mg Cap 100 mg = 1 cap(s), Refills(s) 0 Start Date: 07/05/24 Status: Ordered Repeat number: 1glipiZIDE 10 mg oral tablet (20 sources)SulfonylureaStart: 61-00-7295jfjokDMVA 10 mg Tab 10 mg = 1 tab(s), Refills(s) 0 Start Date: 07/05/24 Status: Ordered Repeat number: 1 hydroCHLOROthiazide 25 mg oral tablet (10 sources)Thiazide DiureticStart: 09-06-2024 End: 43-27-5850wvod 1 tablet by mouth once dailyhydrOXYzine hydrochloride 25 mg oral tablet (20 sources)AntihistamineStart: 10-52-0636ixgu 1 tablet by mouth once daily at bedtimeHydroxyzine Hcl 25 mg tablet Active 25 MG PO Daily at bedtime March 10, 2025 12:00am Complies with drug therapyStart: 06-16-2024 End: 25-35-9148jbxkJXSbbkf hydrochloride 25 mg Tab 25 mg = 1 tab(s), Refills(s) 0 Start Date: 07/05/24 Status: Ordered Repeat number: 1Start: 10-41-7516hjmz 1 tablet by mouth four times daily as neededhydrOXYzine HCl (Atarax) 25 MG tablet Indications: Post herpetic neuralgia (CMS/HCC) TAKE 1 TABLET BY MOUTH 4 TIMES A DAY NEEDED FOR ITHCING 360 tablet 1 12/30/2023 Activelisinopril 10 mg oral tablet (11 sources)Angiotensin Converting Enzyme InhibitorStart: 09-06-2024 End: 79-12-1650corsaastbm 10 mg Tab 10 mg = 1 tab(s) Start Date: 03/21/25 Status: Ordered Repeat number: 124 hr metFORMIN hydrochloride 500 mg extended release oral tablet (20 sources)BiguanideStart: 82-37-1827xdqb 1 tablet by mouth every twenty-four hoursStart: 03-51-3452kaoz 1 tablet by mouth once dailymetFORMIN XR (Glucophage- XR) 500 MG 24 hr tablet Indications: Type 2 diabetes mellitus with hypergly cemia, without long-term current use of insulin (HCC) Take 1 tablet (500 mg) by mouth Daily 90 tablet 5 08/16/2024 ActiveStart: 60-73-8004hyur 500 mg by mouth once dailymetformin 500 mg, Oral, Daily, Refills(s) 0 Start Date: 07/05/24 Status: Ordered Repeat number: 1Start: 42-62-9937tsol 1 tablet by mouth once daily metFORMIN XR (Glucophage-XR) 500 MG 24 hr tablet Indications: Type 2 diabetes mellitus with hyperglycemia, without long-term current use of insulin (CMS/HCC) TAKE 1 TABLET BY MOUTH EVERY DAY 90 tablet 5 05/11/2024 ActiveStart: 07-19-2023 take 1 tablet by mouth once dailymetFORMIN XR (Glucophage-XR) 500 MG 24 hr tablet Take 500 mg by mouth Daily 07/19/2023 Activemethocarbamol 750 mg oral tablet (12 sources)Muscle RelaxantStart: 12-02-2023 End: 62-04-0205ogpqruzcyrlui (Robaxin) 750 MG tablet 12/02/2023 Active olopatadine 2 mg/ml ophthalmic solution (20 sources)Histamine-1 Receptor InhibitorStart: 91-47-0067bnxj 1 drop(s) into the eye(s) twice daily in the morningOlopatadine (Advanced Eye Relief (Olopatad)) 0.2 % drops Active 1 DROPS OPHTHALMIC Twice daily March 10, 2025 12:00am Administer 1 drop into the left eye in the morning and 1 drop before bedtime Complies with drug therapyStart: 19-44-6466ngfp 1 drop(s) into the eye(s) in the morningCVS Olopatadine HCl 0.2 % ophthalmic solution Administer 1 drop into the left eye in the morning and 1 drop before bedtime. 03/26/2024 Activeomeprazole 20 mg delayed release oral tablet (20 sources)Proton Pump InhibitorStart: 90-62-7269rsbu 1 tablet by mouth once dailyOmeprazole 20 mg tablet,delayed release (DR/EC) Active 20 MG PO Daily March 10, 2025 12:00am Complies with drug therapyStart: 18-94-3575bnej 20 mg by mouth once dailyomeprazole 20 mg, Oral, Daily, Refills(s) 0 Start Date: 07/05/24 Status: Ordered Repeat number: 1take 1 capsule by mouth before mealtime omeprazole (PriLOSEC) [address] capsule Take 20 mg by mouth in the morning. Take before meals. Do not crush or chew. ActiveOXcarbazepine 300 mg oral tablet (20 sources)Anti-epileptic AgentStart: 72-85-1348pqmp 1 tablet by mouth twice dailyOxcarbazepine 300 mg tablet Active 300 MG PO Twice daily March 10, 2025 12:00am Complies with drug therapyStart: 91-09-9273ywwzwqqwsvufz 300 mg Tab 300 mg = 1 tab(s), Refills(s) 0 Start Date: 07/05/24 Status: Ordered Repeat number: 1 Start: 03-49-0795ujbi 1 tablet by mouth in the morningOXcarbazepine (Trileptal) 300 MG tablet Indications: Post herpetic neuralgia (CMS/HCC) Take 1 tablet (300 mg) by mouth in the morning and 1 tablet (300 mg) before bedtime. 60 tablet 5 07/07/2023 ActivepredniSONE 50 mg oral tablet (2 sources)Start: 05-17-2024 End: 56-68-4992evuu 1 tablet by mouth once dailypredniSONE (Deltasone) 50 MG tablet Indications: COPD exacerbation (CMS/HCC) Take 1 tablet (50 mg) by mouth Daily for 6 days 6 tablet 05/17/2024 05/23/2024 Activepregabalin 25 mg oral capsule (2 sources)Start: 45-56-4888hxpyzgqkvq 25 mg Cap 25 mg = 1 cap(s) Start Date: 03/21/25 Status: Ordered Repeat number: 1Start: 56-52-7365yhck 1 capsule by mouth twice daily Completed/Discontinued Medications MedicationDrug Class(es)DatesSig (Normalized)Sig (Original)ciprofloxacin 500 mg oral tablet (6 sources)Quinolone AntimicrobialStart: 43-40-1857qxym 1 tablet by mouth every three monthsCipro 500 mg Tab 500 mg = 1 tab(s), Oral, Daily, Take 1 tablet the day before the procedure and 1 tablet after the procedure, every 3 months, # 8 tab(s), Refills(s) 0, Pharmacy: [facility]/pharmacy #[id number], 179, cm, 11/15/24 13:10:00 EDT, Height/Length Dosing, 81, kg, 11/15/24 13:10:00 EDT, Weight Dosing Start Date: 12/06/24 Status: Ordered Quantity: 8.0 Unit: tab(s) Repeat number: 1Start: 66-23-3109tash 1 tablet by mouth once dailyCipro 500 mg Tab 500 mg = 1 tab(s), Oral, Daily, take one tab day before procedure and one tab after procedure, # 2 tab(s), Refills(s) 0, Pharmacy: [facility]/pharmacy #[id number], 179, cm, 07/05/24 9:09:00 EST, Height/Length Dosing, 85.4, kg, 07/05/24 9:09:00 EST, Weight Dosing Start Date: 07/05/24 Status: OrderedlevoFLOXacin 750 mg oral tablet (11 sources)Quinolone AntimicrobialStart: 05-17-2024 End: 21-75-2494wsgf 1 tablet by mouth in the morninglevoFLOXacin (Levaquin) 750 MG tablet Take 1 tablet by mouth in the morning. 05/17/2024 01/04/2025 D iscontinued Problems Active Problems Problem ClassificationProblemDateDocumented DateEpisodic/ChronicAnxiety disorders (20 sources)Generalized anxiety disorder; Translations: [Generalized anxiety disorder]Onset: 617060-68-6031YhwismxAcappi of bladder (20 sources)Transitional cell carcinoma of bladder; Translations: [Malignant tumor of urinary bladder]Onset: 828250-42-2526XusocmmFtsnls of bladder (6 sources)History of malignant neoplasm of bladder; Translations: [Personal history of malignant neoplasm of bladder]Onset: 74-99-7409XzjjtnglHblrlvc on above:Dr. Souza- UrologistCancer; other and unspecified primary (5 sources)H/O: malignant qekwfbtp26-84-1359XesdwmwlUverajm obstructive pulmonary disease and bronchiectasis (20 sources)Chronic obstructive pulmonary disease, unspecified; Translations: [Chronic obstructive lung disease]Onset: 17-53-6116UfomgpfZcrjqczl mellitus with complications (20 sources)Type 2 diabetes mellitus with hyperglycemia; Translations: [Hyperglycemia due to type 2 diabetes mellitus]Onset: 69-02-4784OjpzigrAtfbvvvp mellitus without complication (20 sources)Diabetes mellitus; Translations: [Type 2 diabetes mellitus without complications]Onset: 397091-18-8327DaxyzpoYpbdpywyo of lipid metabolism (20 sources)Hyperlipidemia, unspecified; Translations: [Dyslipidemia]Onset: 776436-28-1193XcjoaspLaahkgojkm disorders (20 sources)Gastroesophageal reflux disease without esophagitis; Translations: [Gastro-esophageal reflux disease without esophagitis]Onset: 07-07-2023 05-26-7590CqysvoeDcesdcudy hypertension (17 sources)Hypertensive disorder; Translations: [Benign essential hypertension] Onset: 954023-37-5192IniggofVnhwutjjphonp symptoms and ill-defined conditions (20 sources)Khai hematuria; Translations: [Gross hematuria]Onset: 06-14-2024 Resolved: 358252-24-1140OwwnptjlPqlezsyyarf of prostate (20 sources)Benign prostatic hypertrophy with outflow obstruction; Translations: [Benign prostatic hyperplasia with lower urinary tract symptoms]Onset: 37-69-7916ZoyeqatNvtechcqxcmw with complications and secondary hypertension (2 sources)Hypertensive heart disease without heart failure; Translations: [Hypertensive heart disease withoutheart failure]Onset: 61-71-5108Iqetoqv Neoplasms of unspecified nature or uncertain behavior (12 sources)Neoplasm of uncertain behavior of bladder; Translations: [Neoplasm of uncertain behavior of bladder]Onset: 08-23-2024 Resolved: 819877-07-6561JmtffgvmDfctq aftercare (20 sources)Long-term current use of drug therapy; Translations: [Other keno terminal operator (current) drug therapy]Onset: 982385-62-9965RfozlsgwAtymh aftercare (2 sources)Patient encounter status; Translations: [Encounter for therapeutic drug level monitoring]69-78-6237FkhnxaozMaojk nervous system disorders (9 sources)Drug-induced myopathy; Translations: [Drug-induced myopathy]Onset: 300354-79-5939GvqwoxxjWigtd nervous system disorders (9 sources)Drug-induced myopathy; Translations: [Toxic myopathy]Onset: 141167-22-6704BlvctujjQkwev nervous system disorders (2 sources)Impaired cognition; Translations: [Other symptoms and signs involving cognitive functions and awareness]07-51-9784LqcsxgizBauvgjrr codes; unclassified (20 sources)Persistent insomnia; Translations: [Insomnia, unspecified]Onset: 812503-56-9241IyxjknvsWvvlbcfslya; intervertebral disc disorders; other back problems (20 sources)Lumbar spondylosis; Translations: [Spondylosis without myelopathy or radiculopathy, lumbar region]Onset: 839908-50-5130CuvczlrGshyxlm disorders (20 sources)Hypothyroidism; Translations: [Hypothyroidism, unspecified]Onset: 398747-32-4910YmqdefeIlhhefzbvruu (13 sources)Patient encounter -94-1901Aqndj infection (20 sources)Postherpetic neuralgia; Translations: [Other postherpetic nervous system involvement]Onset: 803332-04-7135Wwvehqjh Past or Other Problems Problem ClassificationProblemDateDocumented DateEpisodic/ChronicMood disorders (15 sources)Mood disordersOnset: Other aftercare (1 source)Other keno terminal operator (current) drug therapy; Translations: [OTH RESIDENTIAL CURRENT DRUG THERAPY]Onset: 21-23-3463PcdmmgwnPovty circulatory disease (20 sources)Elevated blood-pressure reading without diagnosis of hypertension; Translations: [Elevated blood-pressure reading, without diagnosis of hypertension]Onset: 07-07-2023 Resolved: 973309-65-3217BwfbuujjNflqv screening for suspected conditions (not mental disorders or infectious disease) (20 sources)Encounter for screening for malignant neoplasm of prostate; Translations: [Patient encounter status]Onset: 206040-59-6492Tsuplaxj Results Test NameValueInterpretationReference RangeFacilityUroVysion Fish and Urine Cyto ([facility])on 26-87-6232PUDHJY & UCDiagnosis InfoInvalid Interpretation [facility] HospitalComment on above:Result Comment: A:Urine,Urine:Voided Diagnosis Summary - Clusters and singled atypical urothelial cells with degenerative changes; as voided urine, suspicious for urothelial neoplasm. Clinical correlation and tissue confirmation is recommended as clinically indicated. Diagnosis Summary - The UroVysion FISH study detected normal copy numbers for chromosomes 3, 7, 17,and 9p21. 175 cells were analyzed in this evaluation. No evidence of aneuploidy for chromosomes 3, 7, or 17 or deletion of the 9p21 locus was found in cells present in this specimen. This test does not rule out the possibility of a low grade non-invasive papillary urothelial carcinoma. These findings should be correlated with cytology and cystoscopy results. * CPT: 07426, 79578. Microscopic Notes - Microscopic Notes - Abnormal cells 9p21 deletions: Abnormal cells aneploid events: Total cells analyzed: 175 Hematuria: Gross Description Site ID:A color Yellow fixative Alcohol Received 110 mls of clear yellow fluid with the patient's name and, Urine on the vial. Electronically signed by : on: 03/28/2025 10:11:59Performed By: #### [id number] #### [facility] [address] [place] [address] 347[address]Sljvshpyujx 56-54-1981UkslrbawnAswgzjzsz From: Lali Paul To: EU - Recalls Souza; Sent: 02/03/2025 10:47:12 EDT Show up: 03/02/2025 10:47:00 EDT Subject: cysto/fish/cytol Due Date/Time: 03/21/2025 10:47:00 EDT Reminder/Recall Patient is due in Jun 2025 for 3 month cysto/fish/cytol, bt ck Patient sched 04/14/25 for TURBTNormalFisher [facility] HospitalOffice Visiton 12-94-9065Ynpflr-up [id number] Jam Ramirez Jr. 1940 M Date Provider Department Center 03/21/2025 271-KRISTEN GILL Family History Family Status - Relation Status Age at Mother Father Level of Service:[address] [place] OFFICE/OUTPATIENT ESTABLISHED MOD MDM [address] [facility] HospitalUroVysion Fish and Urine Cyto ([facility])on 46-24-0448UDQR Method of ExtractionBladder WashKettering Health Main Campus Comment on above:Performed By: #### [id number] #### [facility] [address], [place] [address]PYJR Number of Eaba0Egeaeaq Interpretation CodeCleveland Clinic Union HospitalComment on above:Performed By: #### [id number] #### [facility] [address], [place] [address]HMMM SpecimenUrineNoPremier Health Atrium Medical CenterComment on above:Performed By: #### [id number] #### [facility] [address], [place] [address]CAGS Type of ServiceTechnical OnlyKettering Health Main CampusComment on above:Performed By: #### [id number] #### [facility] [address], [place] [address]Pxgjwff Office/Clinic Noteon 37-66-4308Ltqgshv Office/Clinic NoteUrology Office/Clinic Note Chief Complaint Cysto HPI Staff 84 year old male cysto/needs fish/cytology, 3 month bt check Previous Dx: Urothelial carcinoma of bladder Finished 3 of 3 BCG 02/16/25 Last round BCG 6 of 6 finished 11/15/24 History of Present Illness Tests reviewed: reviewed op note, FISH/cytol I have reviewed the previous health record information and history for this patient from Dr. Carmen Jose PA-C. I have reviewed and verified the [...] See HPI. Physical Exam Vitals & Measurements HT: 179 cm HT: 70 in General Appearance: alert, no distress, well nourished, [...] The Prostatic Urethra is: Unobstructed The Bladder: _On anterior wall, there are nearly ten 1 cm or less papillary tumors. Trabeculated: Moderate (2) The Ureteral orifices: Show efflux of clear urine Specimens Removed: Voided specimen sent for FISH and Cytology test Removal: [...] evidence of CIS. BCG #6/6 completed 11/15/24. [1] Last Cysto/FISH/cytol 12/27/24 - all neg. BCG #3/3 done 02/16/25. Pt had 3 month IO cysto to check for bladder tumor recurrence without complications today. Pt took prophylactic abx prior to procedure. Will send voided specimen for FISH/cytol and call pt if positive. -See #2 2. 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 -Will schedule TURBT. The procedure risks, benefits, details, and [...] When Contact Information Lalo SOUZA MD, URL [address] [facility] [place] [address] Additional Instructions: sched TURBT Patient Education Transurethral Resection of Bladder Tumor, Care After Transurethral Resection of Bladder Tumor Cancer Screening for Males I, Amy David, personally scribed for Dr. Souza on 03/21/2025 08:48:24. . Documentation recorded by the scribeAmy, accurately reflects the services(s) I performed and decisions made by me. Authenticated by Dr. Souza on 03/21/2025 08:52:03. Problem List/Past Medical History Ongoing Bladder cancer Bladder neoplasm of uncertain malignant potential BPH with urinary obstruction Chronic GERD Diabetes Gross hematuria History of bladder cancer Hypertension Screening PSA (prostate specific antigen) Urothelial carcinoma of bladder Historical No qualifying data Procedure/Surgical History Cystoscope (03/03 (more content not included)...[facility] Comment on above:Result Comment: Electronically Signed By: Lalo SOUZA MD\.br\Date and Time Signed: 03/21/25 08:52 EDT\.br\Electronically Co-Signed By: Amy David\.br\Date and Time Co-Signed: 03/21/25 08:48 EDTBasophils Auto (Bld) [#/Vol]Ordered By: Layla Rodriguez on 53-83-1464Uiomquvzr (Bld) [#/Vol]0.1 10 3/uL0.0-0.1FHolzer Health SystemBasophils/100 WBC Auto (Bld) Ordered By: Layla Rodriguez on 14-18-7259Dmvrcmupw/100 WBC (Bld)1.2 %0.2-2.0 [facility] HospitalEosinophils/100 WBC Auto (Bld)Ordered By: Layla Rodriguez on 15-11-2879Qscoasdhdlg/100 WBC (Bld)5.1 %0.9-7.0[facility]S HospitalErythrocyte distribution width Auto (RBC) [Ratio]Ordered By: Layla Rodriguez on 26-33-0289Lmkrxwkptqo distribution width (RBC) [Ratio]12.6 % 11.0-15.0[facility]'S HospitalGlobulin Calc (S) [Mass/Vol]Ordered By: Shante Austin on 97-64-4195Cbiojqml (S) [Mass/Vol]4.2 g/dLDayton Children'S HospitalGlomerular filtration rate (GFR) estimation in non- AmericanOrdered By: Shante Austin on 02-29-0713IIO/1.73 sq M.predicted among non- blacks MDRD (S/P/Bld) [Vol rate/Area]46 mL/min/{1.73_m2}Low>=60 mL/min/1.73m 2 [facility]S HospitalHematocrit Auto (Bld) [Volume fraction]Ordered By: Layla Rodriguez on 00-44-8872Reanalxoqh (Bld) [Volume fraction]34.0 %Low 42.0-54.0[facility]'S HospitalHemoglobin [Mass/volume] in Blood Ordered By: Layla Rodriguez on 42-96-1647Kxojiikxaa (Bld) [Mass/Vol]11.7 g/dLLow 14.0-18.0[facility] HospitalLaboratory - Chemistry and Chemistry - challengeOrdered By: Shante Austin on 82-08-4720Eujuwiv [Mass/Vol]3.0 g/dLLow 3.4-5.0[facility] HospitalALP [Catalytic activity/Vol]101 U/L 46-116[facility]S HospitalALT [Catalytic activity/Vol]23 U/L16-63 [facility] HospitalAST [Catalytic activity/Vol]15 U/L15-37 [facility] HospitalBilirubin [Mass/Vol]0.5 mg/dL0.2-1.0[facility] HospitalCalcium [Mass/Vol]8.8 mg/dL8.5-10.1FHolzer Health SystemChloride [Moles/Vol]103 mmol/A09-861SssufekdmDayton Children'S HospitalCO2 [Moles/Vol]29.8 mmol/L21.0-32.0[facility] Creatinine [Mass/Vol]1.47 mg/dLHigh0.70-1.30[facility] GFR/1.73 sq M.predicted MDRD (S/P/Bld) [Vol rate/Area]56 mL/min/{1.73_m2}Low>=60 mL/min/1.73m 2FHolzer Health SystemGlucose [Mass/Vol]128 mg/dLHigh 74-106[facility]S HospitalPotassium [Moles/Vol]3.8 mmol/L3.5-5.1 [facility] HospitalProtein [Mass/Vol]7.2 g/dL6.4-8.2FBethesda North Hospitalodium [Moles/Vol]139 mmol/L881-059QapiaiokbDayton Children'S HospitalUrea nitrogen [Mass/Vol]24.0 mg/dLHigh7.0-18.0[facility]S HospitalUrea nitrogen/Creatinine [Mass ratio]16.3 mg/mgDayton Children'S HospitalLaboratory - Hematology and Cell countsOrdered By: Layla Rodriguez on 90-47-9858Capuqmat granulocytes/100 WBC (Bld)0.3 %0.0-0.5FHolzer Health SystemLeukocytes [#/volume] corrected for nucleated erythrocytes in Blood by Automated counOrdered By: Layla Rodriguez on 35-86-5580EJM corrected for nucl RBC Auto (Bld) [#/Vol]9.9 10 3/uL4.0-11.0[facility] Lymphocytes Auto (Bld) [#/Vol]Ordered By: Layla Rodriguez on 45-53-1097Dtefisovnac (Bld) [#/Vol]1.7 10 3/uL1.2-3.8[facility]'S HospitalLymphocytes/100 WBC Auto (Bld)Ordered By: Layla Rodriguez on 62-34-7141Cftwwiypnmr/100 WBC (Bld) 17.1 %Low20.5-60.0[facility] Auto (RBC) [Entitic mass] Ordered By: Layla Rodriguez on 93-35-8094ZSE (RBC) [Entitic mass]31.0 pg25.9-34.0 [facility] HospitalMCHC Auto (RBC) [Mass/Vol]Ordered By: Layla Rodriguez on 27-22-0433TDBS (RBC) [Mass/Vol]34.4 g/dL29.9-35.2FHolzer Health SystemMCV Auto (RBC) [Entitic vol]Ordered By: Layla Rodriguez on 81-67-8976UGZ (RBC) [Entitic vol]89.9 fL80.0-94.0[facility] HospitalMonocytes Auto (Bld) [#/Vol]Ordered By: Layla Rodriguez on 03-05-2025 Monocytes (Bld) [#/Vol]0.9 10 3/uLHigh0.3-0.8[facility] Monocytes/100 WBC Auto (Bld)Ordered By: Layla Rodriguez on 12-16-9071Mgvqzlthb/100 WBC (Bld)9.3 %1.7-12.0[facility]S HospitalNeutrophils Auto (Bld) [#/Vol]Ordered By: Layla Rodriguez on 70-89-0286Vnnmeoxqiud (Bld) [#/Vol]6.6 10 3/uLHigh1.4-6.5FHolzer Health SystemNeutrophils/100 WBC Auto (Bld) Ordered By: Layla Rodriguez on 94-70-4752Ecpvdhvggkh/100 WBC (Bld)67.0 %43.0-75.0 [facility] HospitalNo Panel InformationOrdered By: Layla Rodriguez on 81-25-7291Ckkydiyznbo # (Auto)0.5 10 3/uL0.0-0.7FHolzer Health SystemImmature Granulocyte # (Auto)0.03 10 3/uL0.00-0.03[facility]S HospitalPlatelet mean volume Auto (Bld) [Entitic vol]Ordered By: Layla Rodriguez on 49-42-8750Pjzwfcct mean volume (Bld) [Entitic vol]9.9 fL9.5-13.5 [facility] HospitalPlatelets Auto (Bld) [#/Vol]Ordered By: Layla Rodriguez on 91-54-7799Eurmabtlx (Bld) [#/Vol]383 10 3/nM400-666AelpatrmxDayton Children'S HospitalRBC Auto (Bld) [#/Vol]Ordered By: Layla Rodriguez on 76-70-0856SZU (Bld) [#/Vol]3.78 10 6/uLLow4.70-6.10[facility] John Medical Centererum or plasma albumin/globulin mass ratioOrdered By: Shante Austin on 03-05-2025 Albumin/Globulin [Mass ratio]0.7 {ratio}[facility] John Medical Centererum or plasma anion gap determinationOrdered By: Shante Austni on 24-30-3308Uauhd gap [Moles/Vol]10.0 mmol/LFHolzer Health SystemAmbulatory Visit Summary on 59-71-3882Dvgubfzyem Visit SummaryAmbulatory Visit Summary JAM RAMIREZ JR :1940 Visit [...] QUINTANA, Lalo Mclain Where: [facility] [address] [address]- Medications What How Much When Instructions Unchanged [...] signed up for this yet, please contact Android [employer] at [phone] to get signed up today. Language Information Language assistance services are available as needed. [facility] CampusUrology Office/Clinic Noteon 84-50-9739Dduzdzd Office/Clinic NoteUrology Office/Clinic Note HPI Staff Pt is a [...] Department for development of fever, chills, or flu- like symptoms. Symptoms such as urinary frequency, urgency, [...] Urnls Dip Stick Auto w/o Microscopy POC 96513 Follow-up With When Contact Information LIBBY QUINTANA, Lalo Mclain, URL [address] [place] [address]- Additional Instructions: Surveillance cysto scheduled 03/21/25 Patient [...] Glucose Urine Dipstick: Negati (more content not included)...[facility] CampusComment on above:Result Comment: Electronically Signed By: Shannan Jose PA-C\pia\Date and Time Signed: 02/16/25 11:31 EDTUrology Office/Clinic Noteon 27-01-5355Rfhwywi Office/Clinic NoteUrology Office/Clinic Note HPI Staff Pt is a [...] Department for development of fever, chills, or flu- like symptoms. Symptoms such as urinary frequency, urgency, [...] Urnls Dip Stick Auto w/o Microscopy POC 63454 Follow-up With When Contact Information Shannan Jose PA-C, URL Additional Instructions: RTC in 1 week for [...] Negative (02/09/25 11: (more content not included)... [facility] CampusComment on above:Result Comment: Electronically Signed By: Rebeca WEATHERS, Shannan\.br\Date and Time Signed: 02/09/25 12:14 EDT Reminderson 15-08-3080TtrabcztvWyykldqqr From: Lali Paul To: EU - Recalls Souza; Sent: 11/11/2024 13:07:56 EDT Show up: 12/31/2024 13:07:00 EDT Subject: cysto/fish/cytol Due Date/Time: 01/24/2025 13:07:00 EDT Reminder/Recall Patient is due in Mar 2025 for 3 month cysto/fish/cytol, bt ck Patient sched 03/21/25 in [place] office.[facility] Ambulatory Visit Summaryon 79-93-5698Llqmymvrxz Visit SummaryAmbulatory Visit Summary JAM RAMIREZ JR :1940 Visit [...] Shannan Jose PA-C Where: [facility] [address] [address]- Friday 10:30 AM EDT With: Shannan Jose PA-C Where: [facility] [address] [address]- You Need to Schedule the Following Appointments [...] 1 Tablets Medications and Immunizations Administered Given [place] BCG Live (for intravesical use), 25 mg, [...] biopsy. This involves remov (more content not included)...[facility] CampusUrology Office/Clinic Noteon 89-24-1073Iybwjkx Office/Clinic Note Urology Office/Clinic Note HPI Staff [...] Department for development of fever, chills, or flu- like symptoms. Symptoms such as urinary frequency, urgency, [...] Urnls Dip Stick Auto w/o Microscopy POC 32991 Follow-up With When Contact Information Shannan Jose PA-C, URL Additional Instructions: RTO in 1 week for [...] (02/02/25 10:20:00) Leukocytes Urin (more content not included)...[facility] Comment on above:Result Comment: Electronically Signed By: Jimbo Jose PA-Cen\.lucia\Date and Time Signed: 02/02/25 11:19 EDTGlucose mean value [Mass/volume] in Blood Estimated from glycated hemoglobinOrdered By: Jorge Luis Malik on 63-24-4961Lymjnpo glucose Estimated from glycated hemoglobin (Bld) [Mass/Vol]148 mg/dLDayton Children'S HospitalHemoglobin A1c percentage Ordered By: Jorge Luis Malik on 11-36-7487WbR7h (Bld) [Mass fraction]6.8 %High 4.5-6.2FHolzer Health SystemComment on above:ADA RECOMMENDED LIMIT 4.0 - 6.0ADA THERAPEUTIC TARGET < 7.0ACTION SUGGESTED> 7.0UroVysion Fish and Urine Cyto ([facility])on 50-99-6258XBRIFD & UCDiagnosis InfoInvalid Interpretation CodeCleveland Clinic Union HospitalComment on above:Result Comment: A:Urine,Bladder Wash:Bladder Wash Diagnosis Summary - Adequate cellularity for evaluation. Diagnosis Summary - The UroVysion FISH study detected normal copy numbers for chromosomes 3, 7, 17,and 9p21. 200 cells were analyzed in this evaluation. No evidence of aneuploidy for chromosomes 3, 7, or 17 or deletion of the 9p21 locus was found in cells present in this specimen. This test does not rule out the possibility of a low grade non-invasive papillary urothelial carcinoma. These findings should be correlated with cytology and cystoscopy results. * CPT: 11639, 58678. Microscopic Notes - Microscopic Notes - Abnormal cells 9p21 deletions: Abnormal cells aneploid events: Total cells analyzed: 200 Hematuria: Gross Description Site ID:A color Yellow fixative Alcohol Received 100 mls of clear yellow fluid with the patient's name and, Bladder Wash on the vial. Electronically signed by : on: 01/06/2025 03:17:54Performed By: #### [id number] #### [facility] [address] [place] [address]Vojtvijrrc Visit Summaryon 01-62-1710Fxuciwgpdk Visit Summary Ambulatory Visit Summary JAM RAMIREZ JR :1940 Visit Date:12/27/2024 Ambulatory Visit Instructions Your Diagnosis History of bladder cancer Your Care Team Attending Physician - Lalo [...] 3 mos Where: [facility] [address], [place] [phone] Medications What How Much When Instructions Unchanged [...] 25 mg Tab) 1 Tablets Contact prescribing physicianif questions or concerns Unchanged metformin 500 Milligram [...] cancer. Work with your health care provider tocreate a cancer screening schedule that protects your health. Who should have screening? All people who are male should be considered for screening of certain cancers, including colorectalcancer, prostate cancer, lung cancer, and skin cancer. Your health care provider may recommend screenings for other types of cancer if: ??? You have had cancer before. ??? You have a family member with cancer. ??? You have genes that could increase the risk of cancer. ??? You have risk factors for certain cancers, such as current or past use of tobacco products or beingoverweight. What are the benefits of screening? Cancer screening is done to look for cancer in the very early stages, before it spreads and becomesharder to treat and before you would start [...] a flexible tube with a small camera isinserted into the rectum. ??? CT colonography. This test uses X-rays and a contrast dye to check the colon for polyps. Tests to look for cancer in the stool (feces) include: ??? Guaiac-based fecal (more content not included)...NormalCleveland Clinic Union HospitalUroVysion Fish and Urine Cyto ([facility])on 39-95-6459MFTI Method of ExtractionBladder WashNormalCleveland Clinic Union HospitalComment on above: Performed By: #### [id number] #### [facility] [address] [facility], [place] [address]YRMN Number of Ogga4Yjiakgv Interpretation CodeCleveland Clinic Union HospitalComment on above:Performed By: #### [id number] #### [facility] [address] [facility], [place] [address]TKAG SpecimenBladder WashNoPremier Health Atrium Medical Center Comment on above:Performed By: #### [id number] #### [facility] [address] [facility], [place] [address]YFTR Type of ServiceTechnical OnlyKettering Health Main CampusComment on above:Performed By: #### [id number] #### [facility] [address] [facility], [place] [address]Jkpcfhh Office/Clinic Noteon 21-49-1038Qqalzxg Office/Clinic NoteUrology Office/Clinic Note Chief Complaint cystoscopy HPI Staff 84 year old male cysto/needs fish/cytol, 3 month bt check Previous Dx: Urothelial carcinoma of bladder History of Present Illness Tests reviewed: reviewed op note I have reviewed the previous health record information and history for this patient from Dr. Carmen Grayson PA-C. I have reviewed and verified [...] Mclain, URL [facility] [address], [place] [phone] Additional Instructions: BCG x3, cysto in 3 [...] Father. Stroke: Father. Immunizatio (more content not included)...[facility] Comment on above:Result Comment: Electronically Signed By: LIBBY QUINTANA, Lalo Aguilar\Date and Time Signed: 12/27/24 08:49 EDTOffice Visiton 31-63-0814Jrigsn-up [id number] Jam Ramirez Jr. 1940 M Date Provider Department Center 12/14/2024 Peggy-KRISTEN GILL COLE [facility] Family History Family Status - Relation Status Age at Mother Father Level of Service:17932 [place] OFFICE/OUTPATIENT ESTABLISHED MOD MDM [address] [facility] HospitalAmbulatory Visit Summaryon 11-15-2024 Ambulatory Visit SummaryAmbulatory Visit Summary JAM RAMIREZ JR :1940 Visit Date:11/15/2024 Ambulatory Visit Instructions Your Diagnosis Urothelial carcinoma of bladder Your Care Team Attending Physician - NGHIA GRAYSON PA-C Primary Care Physician - JORGE [...] you for choosing us for your care. [facility] CampusUrology Office/Clinic Noteon 15-10-6390Kcfczfc Office/Clinic NoteUrology Office/Clinic Note Chief Complaint BCG 6 out [...] Tolerated procedure well. Due for scope in Mar. Reminder in. The patient was placed in [...] Department for development of fever, chills, or flu- like symptoms. Symptoms such as urinary frequency, urgency, and other bladder irritation symptoms are expected Ordered: BCG, 50 mg, IntraVesical, Once, Stop date 11/15/24 14:15:00 EDT, Routine, Start date 11/15/24 14:15:00 EDT, 11/15/24 14:15:00 EDT Urnls Dip Stick Auto w/o Microscopy POC 17058 Follow-up With When Contact Information [facility] [address] [place] [address] Business (1) Additional Instructions: our clinic scheduler will be contacting you for follow-up Patient [...] 300 mg Tab, 300 mg= 1 tab(s) [place] BCG Live (for intravesical use), 50 mg, [...] Recorded influenza virus vaccin (more content not included)...[facility] CampusComment on above:Result Comment: Electronically Signed By: NGHIA GRAYSON PA-C\Date and Time Signed: 11/15/2513:17 EDTReminderson 11-11-2024 RemindersReminders From: Lali Paul To: EU - Recalls Souza; Sent: 09/28/2024 16:01:52 EDT Show up: 09/30/2024 16:01:00 EDT Subject: cysto Due Date/Time: 10/25/2024 16:01:00 EDT Reminder/Recall Patient will need Cysto/fish/cytol after BCG tx #6 () Last BCG tx 11/22/24. Spot held for 12/27/24 in [place] office Patient scheduled.LGNoPremier Health Atrium Medical CenterUrology Office/Clinic Note on 15-24-8220Jqswmkz Office/Clinic NoteUrology Office/Clinic Note Chief Complaint BCG 5 of [...] Department for development of fever, chills, or flu- like symptoms. Symptoms such as urinary frequency, urgency, [...] Urnls Dip Stick Auto w/o Microscopy POC 87602 Follow-up With When Contact Information RADHA WEATHERS, NGHIA Baires, URL In 1 week [address] [place] [address] Additional Instructions: Patient Education Bladder Cancer Problem [...] Tab, 300 mg= 1 tab(s), Not taking Harrison BCG Live (for intravesical use), 50 [...] 10/07/2023 Recorded influenza v (more content not included)...[facility] Comment on above:Result Comment: Electronically Signed By: NGHIA GRAYSON PA-C\.br\Date and Time Signed: 11/08/2512:15 EDTAmbulatory Visit Summaryon 74-64-5523Xkxrwuefay Visit SummaryAmbulatory Visit Summary JAM RAMIREZ JR :1940 Visit Date:11/01/2024 Ambulatory Visit Instructions Your Diagnosis Urothelial carcinoma of bladder Your Care Team Attending Physician - NGHIA GRAYSON PA-C Primary Care Physician - JORGE [...] Follow-Up Appointments Friday 1:00 PM EDT With: NGHIA GRAYSON PA-C Where: [facility] [address] [place] [address]- Friday 1:00 PM EDT With: NGHIA GRAYSON PA-C Where: [facility] [address] [place] [address]- You Need to Schedule the Following Appointments Follow Up with NGHIA GRAYSON PA-C, URL When: In 1 week Where: [address] [place] [address] Medications What How Much When [...] 25 mg Tab) 1 Tablets Contact prescribing physicianif questions or concerns Unchanged metformin 500 Milligram By Mouth Every day Contact prescribing physician if questions or concerns Unchanged omeprazole 20 Milligram By Mouth Every day Contact prescribing physician if questions or concerns Unchanged oxcarbazepine (oxcarbazepine 300 mg Tab) 1 Tablets Contact prescribing physician if questions or concerns Medications and Immunizations Administered Given Harrison BCG Live (for intravesical use), 50 [...] How is this diagnosed (more content not included)...[facility] CampusUrology Office/Clinic Noteon 97-23-0750Yzowlva Office/Clinic NoteUrology Office/Clinic Note Chief Complaint BCG 4 out [...] Department for development of fever, chills, or flu- like symptoms. Symptoms such as urinary frequency, urgency, and other bladder irritation symptoms are expected. Ordered: BCG, 50 mg, IntraVesical, Once, Stop date 11/01/24 13:28:00 EDT, Routine, Start date 11/01/24 13:28:00 EDT, 11/01/24 13:28:00 EDT Urnls Dip Stick Auto w/o Microscopy POC 75772 Follow-up With When Contact Information NGHIA GRAYSON PA-C, URL In 1 week [address] [place] [address] Additional Instructions: Patient Education Bladder Cancer Problem [...] of Care Results B (more content not included)...[facility] CampusComment on above:Result Comment: Electronically Signed By: NGHIA GRAYSON PA-C\.br\Date and Time Signed: 11/01/2512:45 EDTAmbulatory Visit Summaryon 10-26-2024 Ambulatory Visit SummaryAmbulatory Visit Summary JAM RAMIREZ JR :1940 Visit Date:10/26/2024 Ambulatory Visit Instructions Your Diagnosis Urothelial carcinoma of bladder Your Care Team Attending Physician - NGHIA GRAYSON PA-C Primary Care Physician - JORGE [...] Follow-Up Appointments Friday 1:00 PM EDT With: NGHIA GRAYSON PA-C Where: [facility] [address] [place] [address]- Friday 1:00 PM EDT With: NGHIA GRAYSON PA-C Where: [facility] [address] [place] [address]- Friday 1:00 PM EDT With: NGHIA GRAYSON PA-C Where: [facility] [address] [place] [id number]- Medications What How Much When Instructions Unchanged [...] you for choosing us for your care. [facility] CampusUrology Office/Clinic Noteon 21-40-1020Qecicdv Office/Clinic NoteUrology Office/Clinic Note Chief Complaint BCG #3 of [...] Department for development of fever, chills, or flu- like symptoms. Symptoms such as urinary frequency, urgency, and other bladder irritation symptoms are expected. Ordered: BCG, 50 mg, IntraVesical, Once, Stop date 10/26/24 12:06:00 EDT, Routine, Start date 10/26/24 12:06:00 EDT, 10/26/24 12:06:00 EDT Urnls Dip Stick Auto w/o Microscopy POC 56561 Follow-up With When Contact Information RADHA WEATHERS, NGHIA Baires, URL In 1 week [address] [place] [address] Additional Instructions: Patient Education Bladder Cancer Problem [...] Results Bilirubin Urine Dipst (more content not included)...[facility] CampusComment on above:Result Comment: Electronically Signed By: NGHIA GRAYSON PA-C\Date and Time Signed: 10/27/2511:11 EDTUrology Office/Clinic Note on 75-10-9326Fzcfyft Office/Clinic NoteUrology Office/Clinic Note Chief Complaint BCG #2 of [...] Department for development of fever, chills, or flu- like symptoms. Symptoms such as urinary frequency, urgency, and other bladder irritation symptoms are expected. Ordered: BCG, 50 mg, IntraVesical, Once, Stop date 10/18/24 14:00:00 EDT, Routine, Start date 10/18/24 14:00:00 EDT, 10/18/24 14:00:00 EDT Orders: Urnls Dip Stick Auto w/o Microscopy POC 90605 Follow-up With When Contact Information RADHA WEATHERS, NGHIA Baires, URL In 1 week [address] [place] [address] Additional Instructions: Patient Education Bladder Cancer Problem [...] Recorded pneumococcal 23-valent vaccine (more content not included)...[facility] CampusComment on above:Result Comment: Electronically Signed By: NGHIA GRAYSON PA-C\Date and Time Signed: 10/18/2513:02 EDTUrology Office/Clinic Noteon 64-28-8253Wujpjfa Office/Clinic NoteUrology Office/Clinic Note Chief Complaint BCG #1 of [...] Department for development of fever, chills, or flu- like symptoms. Symptoms such as urinary frequency, urgency, and other bladder irritation symptoms are expected. Ordered: BCG, 50 mg, IntraVesical, Once, Stop date 10/11/24 13:37:00 EDT, Routine, Start date 10/11/24 13:37:00 EDT, 10/11/24 13:37:00 EDT Urnls Dip Stick Auto w/o Microscopy POC 62828 Follow-up With When Contact Information RADHA WEATHERS, NGHIA Baires, URL In 1 week [address] [place] [address] Additional Instructions: Patient Education Bladder Cancer Problem [...] Care Results Bilirubin U (more content not included)...[facility] Comment on above:Result Comment: Electronically Signed By: NGHIA GRAYSON PA-C\.br\Date and Time Signed: 10/15/2514:58 EDTAmbulatory Visit Summaryon 43-67-0403Urwxbfqkjp Visit SummaryAmbulatory Visit Summary JAM RAMIREZ JR :1940 Visit Date:10/11/2024 Ambulatory Visit Instructions Your Diagnosis Bladder neoplasm of uncertain malignant potential Your Care Team Attending Physician - NGHIA GRAYSON PA-C Primary Care Physician - JORGE [...] Follow-Up Appointments Friday 1:40 PM EDT With: NGHIA GRAYSON PA-C Where: [facility] [address] [place] [address]- Friday 1:00 PM EDT With: NGHIA GRAYSON PA-C Where: [facility] [address] [place] [address]- Friday 1:00 PM EDT With: NGHIA GRAYSON PA-C Where: [facility] [address] [place] [address]- Friday 1:00 PM EDT With: NGHIA GRAYSON PA-C Where: [facility] [address] [facility] [place] [address]- Friday 1:00 PM EDT With: NGHIA GRAYSON PA-C Where: [facility] [address] [address]- You Need to Schedule the Following Appointments Follow Up with NGHIA GRAYSON PA-C, URL When: In 1 week Where: [address] [place] [address] Medications What How Much When [...] feet. ??? Bone shaista (more content not included)...NormalCleveland Clinic Union HospitalOffice Visiton 67-04-6971Oxhxvf-up [id number] Jam Ramirez Jr. 1940 M Date Provider Department Center 09/28/2024 271-KRISTEN GILL COLE Gal[place] No family history on file Level of Service:[address] [place] OFFICE/OUTPATIENT ESTABLISHED MOD MDM [address] [facility] HospitalOrders Onlyon 77-57-4421Cyrsco [id number] Jam Ramirez Jr. 1940 M Date Provider Department Center 09/28/2024 928LAYLA IVERSON [facility] No family history on fileNormalUniversity of Methodist Mansfield Medical CenterALL BASIC METABOLIC PANELon 20-27-8837Rgxag gap [Moles/Vol]12.5 mmol/LNOMS Healthcare Calcium [Mass/Vol]8.9 mg/dL8.5 - 10.1 mg/dLNOMS HealthcareChloride [Moles/Vol] 100 mmol/L98 - 107 mmol/LNOMS HealthcareCO2 [Moles/Vol]30.3 mmol/L21.0 - 32.0 mmol/LNOMS HealthcareCreatinine [Mass/Vol]1.28 mg/dL0.70 - 1.30 mg/dLNOVT HealthcareGFR/1.73 sq M.predicted CKD-EPI (S/P/Bld) [Vol rate/Area]>60>=60 mL/min/1.73m 2NOMS HealthcareGlucose [Mass/Vol]185 mg/sGOjhs38 - 106 mg/dLNOVT HealthcareInterpretation and review of laboratory resultsAbnormalNOVT Healthcare Potassium [Moles/Vol]3.8 mmol/L3.5 - 5.1 mmol/LNOMS HealthcareSodium [Moles/Vol] 139 mmol/L136 - 145 mmol/LNOMS HealthcareTBH EGFR-NON AF DKPDBDHS76Wnv>=60 mL/min/1.73m 2NOMS HealthcareUrea nitrogen [Mass/Vol]22 mg/dLHigh7.0 - 18.0 mg/dLNOVT HealthcareUrea nitrogen/Creatinine [Mass ratio]17.2 mg/mgNOVT HealthcareCLINISYNCNOMS HealthcareCA ECHO DOPPLER COMPLETEon 27-98-0735WojNaalehu, [place] [address] Cardiology Report Signed Patient: JAM RAMIREZ Jr. MR#: [id number] : 1940 Acct:[id number] Age/Sex: 84 / M ADM Date: 09/09/24 Loc: CARD Attending Dr: Kristen Gill M.D. Ordering Physician: Kristen Gill M.D. Date of Service: 09/09/24 Procedure(s): CA echo doppler complete Accession Number(s): [id number] cc: Kristen Gill M.D.; Jorge Luis Malik M.D. Patient Name: JAM RAMIREZ MR#: [id number] : 1940 Exam Date: 09/09/2024 Ordering Doctor: [...] Area (VTI): 3.23 cm2, 3.18 cm2 Deceleration Freeborn: 1.54 m/s2 Pressure Half-Time: 612.98 ms Peak [...] By: Kristen Gill M.D. (more content not included)...TBHRadiology, Radiologist, MD - 09/09/2024 [place] [address] Cardiology Report Signed Patient: JAM RAMIREZ Jr. MR#: [id number] : 1940 Acct:[id number] Age/Sex: 84 / M ADM Date: 09/09/24 Loc: CARD Attending Dr: Kristen Gill M.D. Ordering Physician: Kristen Gill M.D. Date of Service: 09/09/24 Procedure(s): CA echo doppler complete Accession Number(s): [id number] cc: Kristen Gill M.D.; Jorge Luis Malik M.D. Patient Name: JAM RAMIREZ MR#: [id number] : 1940 Exam Date: 09/09/2024 Ordering Doctor: [...] Area (VTI): 3.23 cm2, 3.18 cm2 Deceleration Freeborn: 1.54 m/s2 Pressure Half-Time: 612.98 ms Peak [...] Signed By: 09/09/24 1609 DD/ 1608 TD/TT: Pinion Sorter: MALKA HealthcareRadiology Study observation (narrative)[facility] ECHO DOPPLER COMPLETEOrdered By: Radiologist Radiology on 71-93-7814FYNI [employer] Work Phone: [phone] [phone] with patient. He will start those 2 medications and have labs in 1 week. RX's sent to [facility]. BMP faxed to [facility]. Also made him a follow up with Dr. Gill. Patient verbalized understanding. I also asked him to keep track of BP's 1-2 hours after taking medications.[facility]36Lesa from Dr. Souza' office called to make you aware of patient's elevated BP reading in their office. It was 173/94. Patient told her he took it himself at home this morning and it was 150/100+. He is not currently on any antihypertensive medications. He's scheduled for echo this week. Did you want to start something? Please advise. Thanks.[facility] [facility] Ambulatory Visit Summaryon 50-60-0383Rdldwfvvkc Visit SummaryAmbulatory Visit Summary JAM RAMIREZ JR :1940 Visit [...] Follow Up with LIBBY QUINTANA, Lalo Mclain, DANIELA When: Comments: schedule BCG #6 to start in 1 month, then cysto 1 month after BCG Where: [facility] [address] , [place] [address] [phone] Medications What How Much When Instructions Unchanged [...] 25 mg Tab) 1 Tablets Contact prescribing physicianif questions or concerns Unchanged metformin 500 Milligram [...] in the brain or spinal cord (intraventricular orintrathecal chemotherapy). ??? As an installation into the intraperitoneal (abdominal) cavity. ??? Through a small, thin tube (catheter). There are different kinds of catheters. 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 ??? As an installation into the intraperitoneal (abdominal) cavity. ??? Through a small, thin tube (catheter). There are different kinds of catheters. You elena (more content not included)...[facility]/Cl[facility] Noteon 97-19-4404Sthtker Office/Clinic NoteUrology Office/Clinic Note Chief Complaint Patient is here [...] antigen) (Z12.5: Encounter for screening for malignant neoplasmof prostate) S/p TRUS/bx 03/11/06. Last PSA 02/12/22 - 0.25. Monitored by PCP. -Can cont PSA screening with PCP Follow-up With When Contact Information LIBBY QUINTANA, Lalo Mclain, URL [facility] [address] [place] [address] [phone] Additional Instructions: schedule BCG #6 to start [...] 07/05/2024 Tobacco - No (more content not included)...[facility] Comment on above:Result Comment: Electronically Signed By: Lalo SOUZA MD\.br\Date and Time Signed: 09/06/24 10:58 EDT\.br\Electronically Co-Signed By: Amy David\.br\Date and Time Co-Signed: 09/06/24 10:57 EDTAmbulatory Visit Summaryon 68-90-6990Yormfivhei Visit SummaryAmbulatory Visit Summary JAM RAMIREZ JR :1940 Visit Date:09/02/2024 Ambulatory Visit Instructions Your Care Team Attending Physician - LIBBY [...] Follow-Up Appointments Friday 9:45 AM EDT With: LIBBY QUINTANA, Lalo Mclain Where: [facility] [place] [id number] Medications What How Much When Instructions Unchanged acetaminophen (Tylenol) 500 Milligram By Mouth 3 times a day Unchanged albuterol See instructions Unchanged ciprofloxacin (Cipro 500 mg Tab) 1 Tablets By Mouth 2 times a day take one tab day beforeprocedure and one tab after procedure Unchanged gabapentin [...] you for choosing us for your care. [facility] CampusLon 08-26-2024L Specimen: [id number] Received: 08/26/24 Status: SARAI Gould Num: [id number] Spec Type: Surgical Subm Dr: Lalo Souza MD Tissues: A Urinary Bladder - TUR (BLADDER TUMORS) Procedures: HE/Yana, Gross/Micro L5 Age/ Patient Sex Location Account Attending Physician Jam Ramirez JR 84/M LABELL [id number] Lalo Souza MD SPEC NUM: [id number] RECD: 08/26/24 STATUS: SARAI GOULD NUM: [id number] CIRILO: 08/26/[address]: Lalo Souza MD ENTERED: 08/26/[address] [facility] [address]: Chris,Catrachita SPEC TYPE: Surgical DEPT: RUSSELL CANTU ENTERED BY: [id number] RECV BY: [id number] ORDERED: HE/2, Gross/Micro L5 ORDERED: HE/2, Gross/Micro L5 Pathological Diagnosis Urinary bladder tumor, TURBT: -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 (2, ns, [id number] A)DOUG Specimen: [id number] Received: 08/26/24 Status: SARAI Vimal Num: [id number] Spec Type: Surgical Subm Dr: Lalo Souza MD Tissues: A Urinary Bladder - TUR (BLADDER TUMORS) Procedures: HE/2, Gross/Micro L5 Patient: Jam Ramirez JR [id number] (Continued) Specimen: [id number] Received: 08/26/24 (Continued) Signed (signature on file) Yoshi Blair MD 08/28/24 1838 Specimen: [id number] Received: 08/26/24 Status: SARAI Gould Num: [id number] Spec Type: Surgical Subm Dr: Lalo Souza MD Tissues: A Urinary Bladder - TUR (BLADDER TUMORS) Procedures: HE/Yana, Gross/Micro L5 Patient: Jam Ramirez JR [id number] (Continued) Specimen: [id number] Received: 08/26/24 (Continued) Microscopic Description Microscopic examination is performed CPT Codes 03331 Specimen: [id number] Received: 08/26/24 Status: SARAI Gould Num: [id number] Spec Type: Surgical Subm Dr: Lalo Souza MD Tissues: A Urinary Bladder - TUR (BLADDER TUMORS) Procedures: HE/Yana, Gross/Micro L5 Patient: Jam Ramirez JR [id number] (Continued) Signed (signature on file) Alek-Jewel Blair MD 08/28/[address] [place] [address] Physician GroupOffice Visiton 90-51-7481Xxtbtp-up visit [id number] Jam Ramirez Jr. 1940 M Date Provider Department Center 08/23/2024 271-MARIELY, EHAB CARD [facility] No family history on file Level of Service:[address] [place] OFFICE/OUTPATIENT NEW MODERATE MDM 45 MINUTESNormal [facility] Summaryon 08-11-2024 Ambulatory Visit SummaryAmbulatory Visit Summary JAM RAMIREZ JR :1940 Visit [...] Lalo SOUZA MD Where: [facility] [address] [place] [address]- You Need to Schedule the Following Appointments Follow Up with Lalo SOUZA MD, URL When: Where: [facility] [address] [place] [address]- Medications What How Much When Instructions Unchanged ciprofloxacin (Cipro 500 mg Tab) 1 Tablets By Mouth 2 times a day take one tab day beforeprocedure and one tab after procedure Unchanged acetaminophen [...] 25 mg Tab) 1 Tablets Contact prescribing physicianif questions or concerns Unchanged metformin 500 Milligram [...] these instructions at home: Medicines ??? Take owbi-heu-xkkvyzy and prescription medicines only as told by your health care provider. ??? If you were prescribed an antibiotic medicine, take it as told by your health care provider. Do notstop taking the antibiotic even if you start to feel better. ??? Ask your health care provider if the medicine prescribed to you: ? Requires you to avoid driving or using machinery. ? Can cause constipation. You may need to take these actions to prevent or treat constipation: ? Drink enough fluid to keep your urine pale yellow. ? Take cukj-wby-zlgjkga or prescription medicines. ? Eat foods that [...] until your health ca (more content not included)...NormalCleveland Clinic Union HospitalUrology Office/Clinic Noteon 38-58-3642Qwrjrgx Office/Clinic NoteUrology Office/Clinic Note Chief Complaint CYSTO HPI Staff [...] antigen) (Z12.5: Encounter for screening for malignant neoplasmof prostate) S/p TRUS/bx 03/11/06. Last PSA 02/12/22 [...] MD, URL [facility] [address] [place] [address]- Additional Instructions: sched TURBT Patient Education Transurethral Resection of Bladder Tumor, Care After Transurethral Resection of Bladder Tumor I, Jackie Gamez, personally scribed for Dr. Souza on 08/11/2024 10:25:22. . Documentation recorded by the scribeJackie, accurately reflects the services(s) I performed and [...] mg Tab, 25 m (more content not included)...Normal [facility] HospitalComment on above:Result Comment: Electronically Signed By: Lalo SOUZA MD\.br\Date and Time Signed: 08/11/24 10:26 EDT\.br\Electronically Co-Signed By: Jackie Gamez\.br\Date and Time Co- Signed: 08/11/24 10:25 EDTCT ABDOMEN PELVIS WO/W CONon 15-13-0585[address] [address] [address] Scan Report Signed Patient: JAM RAMIREZ Jr. MR#: [id number] : 1940 Acct:[id number] Age/Sex: 84 / M ADM Date: 07/12/24 Loc: LAB Attending Dr: Lalo Souza M.D. Ordering Physician: Lalo Souza M.D. Date of Service: 07/12/24 Procedure(s): CT abdomen pelvis wo/w con Accession Number(s): [id number] cc: Jorge Luis Malik M.D. [address] [address] Patient Name: JAM RAMIREZ MRN: [facility]:[id number] date: 1940 Sex: M Assigned Patient Location: LAB Current Patient Location: Accession/Order Number: [id number] Exam Date: 07/12/2024 14:50 Report Date: 07/13/2024 [...] M.D. Signed By: 07/13/24619 DD/ 6 TD/TT: Pinion Sorter:TBHRadiology, Radiologist, MD - 07/13/2024 [place] [address] CT Scan Report Signed Patient: JAM RAMIREZ Jr. MR#: [id number] : 1940 Acct:[id number] Age/Sex: 84 / M ADM Date: 07/12/24 Loc: LAB Attending Dr: Lalo Souza M.D. Ordering Physician: Lalo Souza M.D. Date of Service: 07/12/24 Procedure(s): CT abdomen pelvis wo/w con Accession Number(s): [id number] cc: Jorge Luis Malik M.D. [place] [address] Patient Name: JAM RAMIREZ MRN: [facility]:[id number] date: 1940 Sex: M Assigned Patient Location: LAB Current Patient Location: Accession/Order Number: [id number] Exam Date: 07/12/2024 14:50 Report Date: 07/13/2024 [...] M.D. Signed By: 07/13/24619 DD/ 6 TD/TT: Pinion Sorter: [facility] HospitalRadiology Study observation (narrative)[facility] ABDOMEN PELVIS WO/W CONOrdered By: Radiologist Radiology on 09-58-9159WIWD [employer] Work Phone: tbh CREATININEon 23-41-2029Kdxpvleonf [Mass/Vol]1.53 mg/dLHigh0.70 - 1.30 mg/dLNOVT HealthcareGFR/1.73 sq M.predicted CKD-EPI (S/P/Bld) [Vol rate/Area]53Low>=60 mL/min/1.73m 2NMERCY HOSPITAL TISHOMINGO – [facility]ISHOM[facility] HealthcareInterpretation and review of laboratory resultsAbnormalNOSaint John's Saint Francis HospitalTBH EGFR-NON AF AFGHAN 44Low>=60 mL/min/1.73m 2NOMS HealthcareCLINISYNCNOMS HealthcareUrine Cytology ([facility])on 75-63-6959Qxdhegfmykf exam Cytology (U) [Interp]Diagnosis Info Invalid Interpretation CodeCentral Carolina Hospitaler Medstar Union Memorial HospitalComment on above:Result Comment: A:Urine,Urine:Voided Interpretation - 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 Clinical correlation and tissue confirmation is recommended as clinically indicated. CPT 75554 MicroScopic Description - Adequacy - Gross Description Site ID:A color Yellow fixative Alcohol Specimen designated Urine received in alcohol preservative and labeled with the patient???s name, consists of 40ml clear yellow fluid. Electronically signed by : on: 07/09/2024 09:49:35Performed By: #### [id number] ####Juancho [facility] [address] [place], [place]Iwdldewstt Visit Summaryon 22-91-0000Cwgixvhfya Visit Summary Ambulatory Visit Summary JAM RAMIREZ JR :1940 Visit Date:07/05/2024 Ambulatory Visit Instructions Your Diagnosis Gross hematuria BPH with urinary obstruction Screening PSA (prostate specific antigen) Tests Performed CT Urogram -- Results Pending -- Please visit your patient portal for your results or contact your primary care physician. Your Care Team Attending Physician - Lalo [...] When: Where: [facility] [address], [place] [phone] Medications What How Much When Instructions New ciprofloxacin (Cipro 500 mg Tab) 1 Tablets By Mouth Every day take one tab day before procedureand one tab after procedure Pickup at [facility]/pharmacy #[id number] Unchanged acetaminophen (Tylenol) 500 Milligram [...] 25 mg Tab) 1 Tablets Contact prescribing physicianif questions or concerns Unchanged metformin 500 Milligram By Mouth Every day Contact prescribing physician if questions or concerns Unchanged omeprazole 20 Milligram By Mouth Every day Contact prescribing physician if questions or concerns Unchanged oxcarbazepine (oxcarbazepine 300 mg Tab) 1 Tablets Contact prescribing physician if questions or concerns Pharmacy Information [facility]/pharmacy #[id number]: [address], [place] [phone] Allergies codeine (Lightheadedness) Problems Ongoing - Any [...] including vitamins, herbs, eye drops, creams, and tcyw-eru-jjppevf medicines. ??? Any problems you or family [...] you are taking di (more content not included)...NormalC[facility] Hospital Urine Cytology ([facility])on 46-56-5555MS Method of ExtractionVoidedNoPremier Health Atrium Medical CenterComment on above:Performed By: #### [id number] ####[facility] [address] [place], [place]UC Number of Jars 1Invalid Interpretation [facility] HospitalComment on above: Performed By: #### [id number] ####Juancho [facility] [address] [place], [place]UC SpecimenUrineKettering Health [facility] Campus Comment on above:Performed By: #### [id number] ####[facility] [address] [place], [id number] Type of ServiceTechnical OnlyNormal [facility] HospitalComment on above:Performed By: #### [id number] ####[facility] [address] [place], [place]HNR UA (CLEAN/CATCH) MICROSCOPIC IF INDICATEon 91-38-2056RNIJAXKDG URINENegative NEGATIVENOMS HealthcareBLOOD URINELARGEAbnormalNEGATIVENOMS HealthcareClarity (U)CLEARCLEARNOMS HealthcareColor (U)LT. YELLOWYELLOWNOVT HealthcareGLUCOSE URINE UANegativeNEGATIVE mg/dLNOVT HealthcareInterpretation and review of laboratory resultsAbnormalNOMS HealthcareKetones Ql (U)NegativeNEGATIVE mg/dL NOMS HealthcareLeukocyte esterase Test strip Ql (U)NegativeNEGATIVENOMS HealthcareNITRITE URINENegativeNEGATIVENOMS HealthcarepH (U)5.5 [pH]5.0 - 9.0 NOMS HealthcarePROTEIN URINENegativeNEG/TRACE mg/dLNOVT HealthcareSPECIFIC GRAVITY URINE1.0201.005 - 1.025NOVT HealthcareURINE MICROSCOPIC INDICATEDYESNOMS HealthcareUROBILINOGEN URINE0.2 EU/dL0.2 - 1.0 EU/dLNOVT HealthcareCLINISYNC NOMS HealthcareALL CBC WITH AUTO DIFFon 36-14-7094PIIKBWLKI ABSOLUTE AUTO0.1NOMS HealthcareBasophils/100 WBC (Bld)1.1 %0.2 - 2.0 %NOMS HealthcareEosinophils/100 WBC (Bld)7.2 %High0.9 - 7.0 %NOMS HealthcareErythrocyte distribution width (RBC) [Ratio]12.8 %11.0 - 15.0 %NOMS HealthcareHematocrit (Bld) [Volume fraction]36.3 %Low42.0 - 54.0 %NOMS HealthcareHemoglobin (Bld) [Mass/Vol]12.3 g/dLLow14.0 - 18.0 g/dLNOVT HealthcareIMMATURE GRANULOCYTES ABS AUTO0.04HighNOVT HealthcareImmature granulocytes/100 WBC (Bld)0.4 %0.0 - 0.5 %NOMS Healthcare Interpretation and review of laboratory resultsAbnoGeisinger Community Medical Center LYMPHOCYTES ABSOLUTE AUTO1.8NOSaint John's Saint Francis HospitalLymphocytes/100 WBC (Bld)18.7 %Low 20.5 - 60.0 %[facility] WestH (RBC) [Entitic mass]30.8 pg25.9 - 34.0 pgSaint Joseph Hospital WestHC (RBC) [Mass/Vol]33.9 g/dL29.9 - 35.2 g/dLSaint Joseph Hospital WestV (RBC) [Entitic vol]90.8 fL80.0 - 94.0 fLSullivan County Memorial HospitalMONOCYTES ABSOLUTE AUTO0.7NOVT HealthcareMonocytes/100 WBC (Bld)7.5 %1.7 - 12.0 %[facility] HospitalNEUTROPHILS ABSOLUTE AUTO6.1NOMS HealthcareNeutrophils/100 WBC (Bld)65.1 %43.0 - 75.0 %[facility] Memorial HospitalPlatelet mean volume (Bld) [Entitic vol]9.5 fL9.5 - 13.5 fLSullivan County Memorial HospitalTBH EO #0.7NOSaint John's Saint Francis HospitalTB MUF534KGOASamaritan Hospital SSN0OygQYTKSaint John's Saint Francis HospitalTB WBC9.4NOSaint John's Saint Francis HospitalCLINISYNCNUniversity of Missouri Health CareMLR HEMOGLOBIN A1Con 15-07-3682Cpjgnvo [Mass/Vol]148 mg/dLSullivan County Memorial HospitalHbA1c (Bld) [Mass fraction] 6.8 %High4.5 - 6.2 %[facility] HospitalComment on above:ADA RECOMMENDED LIMIT 4.0 - 6.0 ADA THERAPEUTIC TARGET < 7.0 ACTION SUGGESTED > 7.0 Interpretation and review of laboratory resultsAbnoGeisinger Community Medical CenterCLINISYNC [facility] Memorial HospitalGLYCOHEMOGLOBIN A1Con 10-64-8782DYA RECOMMENDATIONSEE BELOWNoAkron Children's HospitalComment on above:Result Comment: ADA RECOMMENDED LIMIT 4.0 - 6.0 ADA THERAPEUTIC TARGET < 7.0 ACTION SUGGESTED > 7.0Performed By: #### A1C #### [facility] [address] [address] [address] Sulema BlairGlucose [Mass/Vol]160 mg/dLNoWilson Street HospitalComment on above:Performed By: #### A1C #### [facility] [address] [address] [address] Sulema BlairHbA1c (Bld) [Mass fraction]7.2 %Critically high4.5-6.2The [facility] Brentwood HospitalComment on above:Performed By: #### A1C #### [facility] [address] [place] [address] Dr. Sulema BlairMICROALBUMIN URINEon 61-20-5756Bcfsgwe, Urine11.1 ug/mLNormalNot Estab.The [facility] Brentwood HospitalComment on above:Performed By: #### MALBLC #### [facility] [address] [place] [address] Dr. Sulema BlairCBC AUTO DIFFon 68-12-7756XBCU #0.1 103/ulNormal0.0-0.1The [facility] Brentwood HospitalComment on above:Performed By: #### CBC #### [facility] [address] [place] [address] Dr. Sulema BlairBasophils/100 WBC (Bld)0.7 %Normal0.2-2.0[facility] Comment on above:Performed By: #### CBC #### [facility] [address] [place] [address] Dr. Sulema Pritchett #0.4 103/ulNormal0.0-0.7The [facility] Brentwood HospitalComment on above: Performed By: #### CBC #### [facility] [address] [place] [address] Dr. Sulema Manningosinophils/100 WBC (Bld)3.7 %Normal0.9-7.0The [facility] Comment on above:Performed By: #### CBC #### [facility] [address] [place] [address] Dr. Sulema Manningrythrocyte distribution width (RBC) [Ratio]13.0 %Sqnzhn62.0-15.0 The [facility] Brentwood HospitalComment on above:Performed By: #### CBC #### [facility] [address] [place] [address] Dr. Sulema BlairHematocrit (Bld) [Volume fraction]37.7 %Critically low42.0-54.0 The [facility] Brent[facility] HospitalComment on above:Performed By: #### CBC #### [facility] [address] [place] [address] Dr. Sulema BlairHemoglobin (Bld) [Mass/Vol]12.4 g/dLCritically low14.0-18.0The [facility] HospitalComment on above:Performed By: #### CBC #### [facility] [address] [place] [address] Dr. Sulema Cabezas #0.03 10e3/ulNormal0.00-0.03The [facility] HospitalComment on above:Performed By: #### CBC #### [facility] [address] [place] [address] Dr. Sulema Cabezas %0.3 %Normal0.0-0.5The [facility] Brentwood HospitalComment on above: Performed By: #### CBC #### [facility] [address] [place] [address] Dr. Sulema Haile #1.3 103/ulNormal1.2-3.8The [facility] Brentwood HospitalComment on above:Performed By: #### CBC #### [facility] [address] [place] [address] Dr. Sulema Bhatiahocytes/100 WBC (Bld)13.7 %Critically low20.5-60.0The [facility] HospitalComment on above:Performed By: #### CBC #### [facility] [address] [place] [address] Dr. Sulema RickettsUAL DIFF REQNONormalThe [facility] Brentwood HospitalComment on above: Performed By: #### CBC #### [facility] [address] [place] [address] Dr. Sulema Poole (RBC) [Entitic mass]30.5 llApqfzy99.9-34.0The [facility] HospitalComment on above:Performed By: #### CBC #### [facility] [address] [place] [address] Dr. Sulema Vasquez (RBC) [Mass/Vol]32.9 g/oGJycwvd38.9-35.2The [facility] HospitalComment on above:Performed By: #### CBC #### [facility] [address] [place] [address] Dr. Sulema Reinoso (RBC) [Entitic vol]92.9 iZTiuwhe61.0-94.0The [facility] HospitalComment on above:Performed By: #### CBC #### [facility] [address] [place] [address] Dr. Sulema Dave #0.9 103/ulCritically high0.3-0.8The [facility] Comment on above:Performed By: #### CBC #### [facility] [address] [place] [address] Dr. Sulema Tranocytes/100 WBC (Bld)9.7 %Normal1.7-12.0[facility] Comment on above:Performed By: #### CBC #### [facility] [address] [place] [address] Dr. Sulema Holliday #6.9 103/ulCritically high1.4-6.5The [facility] Comment on above:Performed By: #### CBC #### [facility] [address] [place] [address] Dr. Sulema Ricoutrophils/100 WBC (Bld)71.9 %Hobery56.0-75.0The [facility] HospitalComment on above:Performed By: #### CBC #### [facility] [address] [place] [address] Dr. Sulema Mayeslet mean volume (Bld) [Entitic vol]10.7 fLNormal9.5-13.5The [facility] HospitalComment on above:Performed By: #### CBC #### [facility] [address] [place] [address] Dr. Sulema BlairPLT313 103/vuFardgc229-972Nuz [facility] HospitalComment on above: Performed By: #### CBC #### [facility] [address] [place] [address] Dr. Sulema BlairRBC4.06 106/ulCritically low4.70-6.10The [facility] HospitalComkalamazoo psychiatric hospital on above:Performed By: #### CBC #### [facility] [address] [place] [address] Dr. Sulema BlairWBC9.6 103/ulNormal4.0-11.0[facility] on above: Performed By: #### CBC #### [facility] [address] [place] [address] Dr. Sulema BlairGLYCOHEMOGLOBIN A1Con 87-28-2661EVT RECOMMENDATIONSEE [facility] TownshipComkalamazoo psychiatric hospital on above:Result Comment: ADA RECOMMENDED LIMIT 4.0 - 6.0 ADA THERAPEUTIC TARGET < 7.0 ACTION SUGGESTED > 7.0Performed By: #### A1C #### [facility] [address] [place] [address] Dr. Sulema BlairGlucose [Mass/Vol]157 mg/dLNoWilson Street HospitalComkalamazoo psychiatric hospital on above:Performed By: #### A1C #### [facility] [address] [place] [address] Dr. Sulema BlairHbA1c (Bld) [Mass fraction]7.1 %Critically high4.5-6.2[facility] on above:Performed By: #### A1C #### [facility] [address] [place] [address] Dr. Sulema BlairLIPID PROFILEon 23-75-5952KFTY-HDL RATIO NORMSEE [facility] CenterComkalamazoo psychiatric hospital on above:Result Comment: 3.3 - 4.4 LOW RISK 4.4 - 7.1 AVERAGE RISK 7.1 - 11.0 MODERATE RISK >11.0 HIGH RISKPerformed By: #### LIVER, BMP, LIPID #### [facility] [address] [place] [address] Dr. Sulema BlairCholesterol [Mass/Vol]238 mg/dLCritically high<=200[facility] on above:Performed By: #### LIVER, BMP, LIPID #### [facility] [address] [place] [address] Dr. Sulema Youngesterol in HDL [Mass/Vol]45 mg/dLTadtsc73-13TzzWestern [facility] on above:Performed By: #### LIVER, BMP, LIPID #### [facility] [address] [address] [address] Sulema Youngesterol in LDL [Mass/Vol]141.4 mg/dLMercy Health St. Joseph Warren HospitalComkalamazoo psychiatric hospital on above:Performed By: #### LIVER, BMP, LIPID #### [facility] [address] [place] [address] Dr. Sulema Berry.total/Cholesterol in HDL [Mass ratio]5.3 {ratio} NormalThe [facility] on above:Performed By: #### LIVER, BMP, LIPID #### [facility] [address] [place] [address] Dr. Sulema Varner NORMAL> or = 60 mg/dl - LOW CARDIOVASCULAR RISK <40 mg/dl - HIGH CARDIOVASCULAR RISKMercy Health St. Joseph [facility] HospitalComkalamazoo psychiatric hospital on above:Performed By: #### LIVER, BMP, LIPID #### [facility] [address] [place] [address] Dr. Sulema Han CALC NORMALSEE BELOWMercy Health St. Joseph Warren HospitalComkalamazoo psychiatric hospital on above:Result Comment: <100 mg/dl OPTIMAL 100 - 129 mg/dl NEAR OR ABOVE OPTIMAL 130 - 159 mg/dl BORDERLINE HIGH 160 - 189 mg/dl HIGH >190 mg/dl VERY HIGH Performed By: #### LIVER, BMP, LIPID #### [facility] [address] [place] [address] Dr. Sulema BlairTriglyceride [Mass/Vol]258 mg/dLCritically high<=150[facility] on above:Performed By: #### LIVER, BMP, LIPID #### [facility] [address] [place] [address] Dr. Sulema Pro CALC51.6 mg/dLNoWilson Street HospitalComment on above: Performed By: #### LIVER, BMP, LIPID #### [facility] [address] [place] [address] Dr. Sulema Michelle PROFILEon 53-81-3631Ujbobpl [Mass/Vol]3.4 g/dLNormal3.4-5.0 The [facility] HospitalComment on above:Performed By: #### LIVER, BMP, LIPID #### [facility] [address] [address] [address] Sulema BlairAlbumin/Globulin [Mass ratio]0.9 {ratio}NormalThe [facility] HospitalComment on above:Performed By: #### LIVER, BMP, LIPID #### [facility] [address] [address] [address] Sulema Fajardo [Catalytic activity/Vol]78 U/IOznzsr51-761Kgf [facility] HospitalComment on above:Performed By: #### LIVER, BMP, LIPID #### [facility] [address] [address] [address] Sulema Ocampo [Catalytic activity/Vol]27 U/XQkzwcl20-98Gmv [facility] HospitalComment on above:Performed By: #### LIVER, BMP, LIPID #### [facility] [address] [address] [address] Suelma Menard [Catalytic activity/Vol]24 U/EGbsvnp22-98Dvh [facility] HospitalComment on above:Performed By: #### LIVER, BMP, LIPID #### [facility] [address] [address] [address] Sulema Salgado, CONJUGATED0.1 mg/dLNormal0.0-0.2[facility] Comment on above:Performed By: #### LIVER, BMP, LIPID #### [facility] [address] [address] [address] Sulema Shethirubin [Mass/Vol]0.5 mg/dLNormal0.2-1.0The [facility] Comment on above:Performed By: #### LIVER, BMP, LIPID #### [facility] [address] [address] [address] Sulema BlairGlobulin (S) [Mass/Vol]3.6 g/dLNormalThe [facility] HospitalComment on above:Performed By: #### LIVER, BMP, LIPID #### [facility] [address] [address] [address] Sulema BlairProtein [Mass/Vol]7.0 g/dLNormal6.4-8.2[facility] Comment on above:Performed By: #### LIVER, BMP, LIPID #### [facility] [address] [address] [address] Sulema BlairPROF CHEM 8 (BAS METB)on 11-36-4309Qpwfw gap [Moles/Vol]12.5 mmol/LNormalThe [facility] HospitalComment on above:Performed By: #### LIVER, BMP, LIPID #### [facility] [address] [place] [address] Dr. Sulema BlairCalcium [Mass/Vol]9.4 mg/dLNormal8.5-10.1[facility] Comment on above:Performed By: #### LIVER, BMP, LIPID #### [facility] [address] [place] [address] Dr. Sulema BliarChloride [Moles/Vol]104 mmol/LBrcpji86-686Nxd [facility] Comment on above:Performed By: #### LIVER, BMP, LIPID #### [facility] [address] [place] [address] Dr. Sulema BlairCO2 [Moles/Vol]30.5 mmol/YEcwvgf35.0-32.0[facility] Comment on above:Performed By: #### LIVER, BMP, LIPID #### [facility] [address] [place] [address] Dr. Sulema BlairCreatinine [Mass/Vol]1.46 mg/dLCritically high0.70-1.30The [facility] HospitalComment on above:Performed By: #### LIVER, BMP, LIPID #### [facility] [address] [place] [address] Dr. Sulema ManningGFR-AF SPFPMLDL17 mL/min/1.00f1Esowxzntpk low>=60The [facility] HospitalComment on above:Performed By: #### LIVER, BMP, LIPID #### [facility] [address] [place] [address] Dr. Sulema ManningGFR-NON AF YJJZSBEF96 mL/min/1.91q6Qedkgwjqnf low>=60The [facility] HospitalComment on above:Performed By: #### LIVER, BMP, LIPID #### [facility] [address] [address] [address] Sulema BlairGlucose [Mass/Vol]159 mg/dLCritically osru13-731Wqr [facility] HospitalComment on above:Performed By: #### LIVER, BMP, LIPID #### [facility] [address] [address] [address] Sulema BlairPotassium [Moles/Vol]4.0 mmol/LNormal3.5-5.1The [facility] Comment on above:Performed By: #### LIVER, BMP, LIPID #### [facility] [address] [address] [address] Sulema BlairSodium [Moles/Vol]143 mmol/FEbvtdj567-507Xkb [facility] Comment on above:Performed By: #### LIVER, BMP, LIPID #### [facility] [address] [address] [address] Sulema BlairUrea nitrogen [Mass/Vol]16.0 mg/dLNormal7.0-18.0The [facility] HospitalComment on above:Performed By: #### LIVER, BMP, LIPID #### [facility] [address] [place] [address] Dr. Sulema BlairUrea nitrogen/Creatinine [Mass ratio]11.0 mg/mgNormalThe [facility] HospitalComment on above:Performed By: #### LIVER, BMP, LIPID #### [facility] [address] [address] [address] Sulema Blair Vital Signs Date TimeVital SignValuePerforming IygvhhxfyAeiqnktw05-90-7083 11:12-0400Body yuobry023.8 cmJorge Luis Malik MD Work Phone: [facility]10-13-2025 11:12-0400 Body mass index (BMI) [Ratio]25.4 kg/m2Jorge Luis Malik MD Work Phone: 1([phone] [place], [place] 4886010-13-2025 11:12-0400 Body peiqcativic66.5 [degF]Jorge Luis Malik MD Work Phone: 1(920)[address]10-13-2025 11:12-0400 Body vduwdz66.28 kgJorge Luis Malik MD Work Phone: [phone])[address] [place], [place] 688[address]10-13-2025 11:12-0400 Diastolic blood rhxonsck71 mm[Hg]Jorge Luis Malik MD Work Phone: 1(385)[address]10-13-2025 11:12-0400 Heart rate59 /minJorge Luis Malik MD Work Phone: 1(854)[address] [place], [place] [address]882310-13-2025 11:12-0400 Respiratory rate18 /minJorge Luis Malik MD Work Phone: 1(611)[address] [place], [place] 2071010-13-2025 11:12-0400 SaO2% (BldA) [Mass fraction]97 %Jorge Luis Malik MD Work Phone: 1(855)[address]10-13-2025 11:12-0400 Systolic blood jpmzlcoi896 mm[Hg]Jorge Luis Malik MD Work Phone: 1(110)[address]09-17-2025 13:04-0400 Body qqucvo162.8 cmJorge Luis Malik MD Work Phone: 1(029)[address]09-17-2025 13:04-0400 Body mass index (BMI) [Ratio]25 kg/m2Jorge Luis Malik MD Work Phone: 1(842)[address]09-17-2025 13:04-0400 Body udwlwb72.92 kgJorge Luis Malik MD Work Phone: 1(508)[address] [place], [place] [address]1009-17-2025 13:04-0400 Diastolic blood cmiljpgq30 mm[Hg]Jorge Luis Malik MD Work Phone: 1(016)[address]09-17-2025 13:04-0400 Heart rate66 /minJorge Luis Malik MD Work Phone: [facility]09-17-2025 13:04-0400 Respiratory rate18 /minJorge Luis Malik MD Work Phone: 1(814)[address]09-17-2025 13:04-0400 SaO2% (BldA) [Mass fraction]95 %Jorge Luis Malik MD Work Phone: 1(793)[address]09-17-2025 13:04-0400 Systolic blood hwrubtgl654 mm[Hg]Jorge Luis Malik MD Work Phone: 1(126)[address]08-05-2025 13:44-0400 Body .8 cmJorge Luis Malik MD Work Phone: [facility] HospitalEvvdgpzghw77-71-7665 13:44-0400Body mass index (BMI) [Ratio]24.82 kg/m2Jorge Luis Malik MD Work Phone: 1(095)812-[address] [place], [place] [address]Plspikfvpo44-35-8366 13:44-0400Body temperature 97.11 [degF]Jorge Luis Malik MD Work Phone: [facility] HospitalHjbgofwnwd49-64-9613 13:44-0400Body .47 kgJorge Luis Malik MD Work Phone: [facility] HospitalHxmngrskmm31-77-0007 13:44-0400Diastolic blood fmnywmer16 mm[Hg]Jorge Luis Malik MD Work Phone: [facility] HospitalLujfcwihlh52-17-2120 13:44-0400Heart rate80 /min Jorge Luis Malik MD Work Phone: [address] [address]Kpjgqjbrnz23-50-4573 13:44-0400Respiratory rate20 /minJorge Luis Malik MD Work Phone: [facility] HospitalTzngyehgoi26-41-8999 13:44-3336KpL0% (BldA) [Mass fraction]98 %Jorge Luis Malik MD Work Phone: [facility] HospitalXosptlukpg42-59-2245 13:44-0400Systolic blood jekwfnrv189 mm[Hg]Jorge Luis Malik MD Work Phone: noSaint [facility] HospitalRwixukwodx00-44-3476 14:21-0400Body mass index (BMI) [Ratio]25.57 kg/l2ErgsnLayla Rodriguez LOADING MANAGER Work Phone: noSaint [facility] HospitalNoxnvwtlpi02-37-8454 14:21-0400Body vuariz99.83 kgSaagapito Rodrgiuez LOADING MANAGER Work Phone: [facility] HospitalLkwviebxle18-61-3214 14:21-0400Diastolic blood nupxdotz53 mm[Hg]Layla Atkinsoll LOADING MANAGER Work Phone: [facility] HospitalXighbfnvrc40-83-3478 14:21-0400Heart rate57 /min Layla Rodriguez LOADING MANAGER Work Phone: noSaint [facility] HospitalBrrohajpqt78-40-6963 14:21-0426YwX7% (BldA) [Mass fraction]98 %Layla Rodriguez LOADING MANAGER Work Phone: [facility] HospitalGemeoqufyb11-38-0404 14:21-0400Systolic blood vatcjqsk828 mm[Hg]Layla Rodriguez LOADING MANAGER Work Phone: [facility] HospitalCpdzyykgcq67-52-6640 13:49-0400Diastolic blood pyxtdhmi93 mm[Hg]NGHIA GRAYSON [facility]05-19-2025 13:49-0400Mean blood mm[Hg]NGHIA GRAYSON [facility]05-19-2025 13:49-0400Systolic blood lzhjvigl704 mm[Hg]NGHIA GRAYSON [facility]05-19-2025 13:45-0400Blood Pressure LocationJEBING ZUNIGARY [facility] [address] [address]-19-2025 13:45-0400Body qmgaupwzhqs54.6 [degF]NGHIA RADHA [facility]05-19-2025 13:45-0400Diastolic blood kylfulkp73 mm[Hg]NGHIA RADHA [facility]05-19-2025 13:45-0400Heart rate94 /minJENNIFER RADHA [facility]05-19-2025 13:45-0400Respiratory rate18 /minJENNIFER RADHA [facility]05-19-2025 13:45-0400Systolic blood vtdkkvex838 mm[Hg]NGHIA RADHA [facility]05-12-2025 13:10-0400Blood Pressure LocationJENNIFER RADHA [facility]05-12-2025 13:10-0400Body eeghvmqfowc57.6 [degF]NGHIA RADHA [facility]05-12-2025 13:10-0400Diastolic blood mm[Hg]NGHIA RADHA [facility]05-12-2025 13:10-0400Heart rate68 /minJENNIFER RADHA [facility]05-12-2025 13:10-0400Respiratory rate16 /minJENNIFER RADHA [facility]05-12-2025 13:10-0400Systolic blood esqoxqdn216 mm[Hg]NGHIA GRAYSON [facility]02-26-2025 14:55-0500Body mass index (BMI) [Ratio]27.55 kg/i0BwlmkLayla Rodriguez LOADING MANAGER Work Phone: noSaint [facility] HospitalXfrttiqxzp45-63-3392 14:55-0500Body itrnhv40.09 kgLayla Rodriguez LOADING MANAGER Work Phone: NOSaint John's Saint Francis HospitalJptjawtpqg63-45-7397 14:55-0500Diastolic blood kqauyrcx54 mm[Hg]Layla Rodriguez LOADING MANAGER Work Phone: NOSaint [facility] Saint Francis HospitalVcmbjamsys72-30-5537 14:55-0500Heart rate78 /min Layla Rodriguez LOADING MANAGER Work Phone: noSaint [facility] HospitalZedoahbjpl70-21-2372 14:55-0238SvG5% (BldA) [Mass fraction]100 %Layla Rodriguez LOADING MANAGER Work Phone: noSaint [facility] HospitalOkdrulczys10-55-1965 14:55-0500Systolic blood aobbwvxp835 mm[Hg]Layla Rodriguez LOADING MANAGER Work Phone: noSaint [facility] HospitalKgexjoaddh56-13-2874 13:41-0500Body .8 cmJorge Luis Malik MD Work Phone: NOSaint John's Saint Francis HospitalKpzwesxall85-42-8458 13:41-0500Body mass index (BMI) [Ratio]27.26 kg/m2Jorge Luis Malik MD Work Phone: [facility] HospitalRvdtmqskck90-28-6580 13:41-0500Body temperature 97.11 [degF]Jorge Luis Malik MD Work Phone: NOSaint [facility] HospitalXjhpbyhtrh75-27-0298 13:41-0500Body ndfinw49.18 kgJorge Luis Malik MD Work Phone: NOSaint [facility] HospitalNcsjmowgoe01-00-4085 13:41-0500Diastolic blood zfqkmsah95 mm[Hg]Jorge Luis Malik MD Work Phone: [facility] HospitalDkxicmepcj94-84-5163 13:41-0500Heart rate80 /min Jorge Luis Malik MD Work Phone: [facility] HospitalAmwlndocjz67-73-4016 13:41-0500Respiratory rate22 /minJorge Luis Malik MD Work Phone: [facility] HospitalBovxtcnjdr72-81-1855 13:41-2901TdU6% (BldA) [Mass fraction]99 %Jorge Luis Malik MD Work Phone: [facility] HospitalFbxtshculv35-45-7057 13:41-0500Systolic blood owjvxdzo152 mm[Hg]Jorge Luis Malik MD Work Phone: [facility] HospitalQdpboxhbwo83-62-0724 09:03-0500Blood Pressure LocationPatrick SOUZA [facility]02-03-2025 09:03-0500Body mezwtmhwipj02.6 [degF]Lalo SOUZA [facility]02-03-2025 09:03-0500Diastolic blood zbaqswfq02 mm[Hg]Lalo SOUZA [facility]02-03-2025 09:03-0500Heart rate86 /minPatrick SOUZA [facility]02-03-2025 09:03-0500Respiratory rate18 /minPatrick SOUZA [facility]02-03-2025 09:03-0500Systolic blood yvateltx614 mm[Hg]Lalo SOUZA [facility]01-22-2025 13:27-0500Body mass index (BMI) [Ratio]27.12 kg/g0Rgiakekktpu Meena REYES Work Phone: [facility] HospitalNexvvlhpnm05-87-5029 13:27-0500Body .73 kgChristopher Meena DO Work Phone: [facility] HospitalUgbbbpvcpu03-33-1567 13:27-0500Diastolic blood anngdljx85 mm[Hg]Roberto Robledo DO Work Phone: [facility] HospitalRrwcxzkpds80-91-2173 13:27-0500Heart rate94 /min Roberto Robledo DO Work Phone: [facility] HospitalErdyyvguap34-22-8160 13:27-6618CrF2% (BldA) [Mass fraction]98 %Roberto Robledo DO Work Phone: [facility] HospitalQwgkasuwpl11-23-0685 13:27-0500Systolic blood xcazwvef715 mm[Hg]Roberto Robledo DO Work Phone: [facility] HospitalWkqzklaoln50-82-5625 13:17-0500Body styxmf551.8 cmJorge Luis Malik MD Work Phone: 1(606)441-[address] [place], [place] [address]Pymcqwwrnw73-10-6578 13:17-0500Body mass index (BMI) [Ratio]27.12 kg/m2Jorge Luis Malik MD Work Phone: [facility] HospitalQzqkvvvnkb31-06-9775 13:17-0500Body temperature 97.11 [degF]Jorge Luis Malik MD Work Phone: [facility] HospitalEjccoxukzd15-69-5827 13:17-0500Body dtxguu23.73 kgJorge Luis Malik MD Work Phone: 1(549)532-[address] [place], [place] [address]Rtqsyikalf94-27-5322 13:17-0500Diastolic blood hptgattq46 mm[Hg]Jorge Luis Malik MD Work Phone: [facility] HospitalObnbczniku69-27-7237 13:17-0500Heart rate97 /min Jorge Luis Malik MD Work Phone: [facility] HospitalKmwjgxxnzy08-50-2210 13:17-0500Respiratory rate20 /minJorge Luis Malik MD Work Phone: [facility] HospitalLiixmozwco75-91-5559 13:17-5846YzK5% (BldA) [Mass fraction]99 %Jorge Luis Malik MD Work Phone: [facility] HospitalEoimjsxbdy22-59-3980 13:17-0500Systolic blood hksredap030 mm[Hg]Jorge Luis Malik MD Work Phone: [facility] HospitalMvqgcqwrms22-28-8525 10:31-0500Body xodeqy596.8 cmJorge Luis Malik MD Work Phone: [facility] HospitalMlaxcwjxfr89-63-2923 10:31-0500Body mass index (BMI) [Ratio]26.83 kg/m2Jorge Luis Malik MD Work Phone: [facility] HospitalYtpajjrukl27-47-2909 10:31-0500Body temperature 97.3 [degF]Jorge Luis Malik MD Work Phone: [facility] HospitalZbwggxjise90-28-7794 10:31-0500Body xoznso47.82 kgJorge Luis Malik MD Work Phone: [facility] HospitalMpbbcbukht27-49-0423 10:31-0500Diastolic blood dezzcyjj33 mm[Hg]Jorge Luis Malik MD Work Phone: [facility] HospitalKqeftfdmja95-80-6627 10:31-0500Heart arnr358 /min Jorge Luis Malik MD Work Phone: [facility] HospitalWzfmaecuos16-20-2483 10:31-0500Respiratory rate18 /minJorge Luis Malik MD Work Phone: [facility] HospitalFfqctjhcgf02-06-9638 10:31-4167NvL9% (BldA) [Mass fraction]98 %Jorge Luis Malik MD Work Phone: [facility] HospitalNzpitwtgyj53-00-0583 10:31-0500Systolic blood yoxtlfao292 mm[Hg]Jorge Luis Malik MD Work Phone: [facility] Healthcare Encounters Encounter DateEncounter TypeCare ProviderFacilityStart: 50-59-6005kbjkvutgkaarun SOUZAFacility:[address]Start: 84-05-3930jkvpipttbyMpngcmk R WATERS Facility:EU [address]Start: 47-14-8126ffffrawotcNnjceud R WATERS Facility:CD:[id number]: 03-21-2025 End: 29-60-3513fxqlortlkqTPZCPike Community Hospitaltart: 03-21-2025 End: 29-19-3674lplnvyenbpEjmtsvb R WATERSFacility:FTL[facility]OSPITALtart: 03-21-2025 End: 52-01-5481Dqfguvb encounter procedureLalo SOUZA [facility] start: 03-14-2025 End: 70-00-7966mmhnxaghawUjyh Naderer MD Work Phone: [facility] Work Phone: Start: 03-14-2025 End: 48-51-3691Hsankvr encounter Chrissy Malik MD-[facility] Work Phone: Start: 82-64-7538Jnj-patient / Non-visitSdonald Rodriguez APRN-FNP-C-[facility] Work Phone: Start: 02-17-2025 End: 39-11-2514utstzysnixDhdh Naderer MD Work Phone: [facility] Work Phone: Start: 02-17-2025 End: 62-13-8019Wnskmig encounter procedureSdonald Rodriguez APRN-FNP-C-[facility] [place] Work Phone: Start: 02-16-2025 End: 67-57-9097zugaulqtidTmnrsc TannaFacility:EU [address]vueStart: 02-16-2025 End: 92-29-3958Yyinian encounter procedureShannan Jose [facility] start: 02-09-2025 End: 66-72-9220ntlrvspafeWdjqtc TannaFacility:EU BellevueStart: 02-09-2025 End: 07-72-2332Lcufwvr encounter procedureShannan Joes [facility] [place] start: 02-02-2025 End: 84-05-5732desvjojxefHtcpzz TannaFacility:EU [place]vueStart: 02-02-2025 End: 09-87-1956Phvloup encounter procedureShannan Jose [facility] [place] start: 69-29-8262Zfm-patient / Non-visitJorge Luis Malik MD -[facility] Work Phone: Start: 28-28-5725Ynh-patient / Non-visitUpper Valley Medical CenternayanR[facility] Work Phone: Start: 01-04-2025 End: 51-62-2876Aconjw flowsLopez Malik MD Work Phone: noMS CWM FMStart: 01-04-2025 End: 72-56-1669Kdbrhu Gui Malik MD Work Phone: noMS CWM FMStart: 01-04-2025 End: 43-14-3545Blahfk outpatient visit 25 minutesJorge Luis Malik MD Work Phone: N[facility] CWM FMComment on above:Type 2 diabetes mellitus with hyperglycemia, without long-term current use of insulin (HCC) (Primary Dx); Benign essential hypertension ; Chronic obstructive pulmonary disease, unspecified COPD type (HCC); Generalized anxiety disorder ; Lumbar spondylosis; Post herpetic neuralgia ; Urothelial carcinoma of bladder (HCC)Start: 12-27-2024 End: 19-82-7358iusnvjugzsLfdjfac Rayne WATERSFacility:FTMCStart: 12-27-2024 End: 53-18-2066gttstvyaouEalrebt R WATERSFacility:EU BellueStart: 12-27-2024 End: 33-42-6327Abbmimh encounter procedurePagibran SOUZA [facility] start: 12-14-2024 End: 76-94-9263phlebfsnjwRJOU [facility] Centertart: 97-00-6247feprifympdYNAFQXAK E PERRYFacility:EU evueStart: 11-15-2024 End: 70-33-5486kwwehuyddwNRRKBPBA E PERRYFacility:EU tart: 11-15-2024 End: 51-37-8788Kvnjjke encounter procedureJENNIFER E RADHA [facility] start: 11-08-2024 End: 33-80-1731lkjaruufdqKXKWXXVY E PERRYFacility:EU tart: 11-08-2024 End: 21-46-2075Rpizkhd encounter procedureJENNIFER E RADHA [facility] start: 11-01-2024 End: 31-36-4672ypsztkdzjxVITDVWNJ E PERRYFacility:EU tart: 11-01-2024 End: 70-47-4221Nrcfabc encounter procedureJENNIFER E RADHA [facility] start: 10-28-2024 End: 82-25-7604Amsfxf outpatient visit 15 minutesSaagapito Rodriguez NP Work Phone: ana BELLEVUEComment on above:Post herpetic neuralgia (CMS/HCC) (Primary Dx)Start: 10-28-2024 End: 02-19-7142gxprbhhuizMNDFF CARROLLNot AvailableStart: 10-28-2024 End: 68-27-3353Lmnrys Alejandrina Rodriguez LOADING MANAGER Work Phone: ana BELLEVUEStart: 10-28-2024 End: 68-16-7571Yipjly Alejandrina Rodriguez LOADING MANAGER Work Phone: ana BELLEVUEStart: 10-26-2024 End: 55-87-0607oymijfrzpaKNFAWKAZ E PERRYFacility:EU ueStart: 10-26-2024 End: 97-25-9793Alepzbz encounter procedureJENNIFER E RADHA [facility] start: 10-18-2024 End: 96-69-9424tgetnmuiorYYETNRUQ E PERRYFacility:EU tart: 10-18-2024 End: 84-21-7765Ggovaym encounter procedureJENNIFER E RADHA [facility] start: 10-11-2024 End: 67-66-3044zmfxekhldpWUFUJWNE E PERRYFacility:EU tart: 10-11-2024 End: 56-12-7415Jgqqzhw encounter procedureJENNIFER E RADHA [facility] start: 64-89-6295votthfafcuTryfxzj WATERSFacility:EU ueStart: 09-28-2024 End: 29-70-7274iuikougflrMBNP [facility] Centertart: 09-27-2024 End: 52-47-3420Jhoiotofu Result EncounterGeneric External Data ProviderNOMS External Department UnsolicitedStart: 09-27-2024 End: 29-84-2059Adllobveo Result EncounterGeneric External Data ProviderNOMS External Department UnsolicitedStart: 09-09-2024 End: 94-13-8505Spdokyguf Result EncounterGeneric External Data ProviderNOMS External Department UnsolicitedStart: 09-09-2024 End: 08-76-3926Ncnyjgqut Result EncounterGeneric External Data ProviderNOMS External Department UnsolicitedStart: 09-06-2024 End: 12-41-3017hkmnykbkpkMbmjpss R WATERSFacility:EU [place]vueStart: 09-02-2024 End: 29-15-6920trvbdsjntwOceygxn R WATERSFacility:EU BellevueStart: 08-26-2024 End: 86-61-8649rqamefpbegTqbueik [facility] Work Phone: Start: 08-26-2024 End: 48-86-3595Ksbrvirh ReferredLalo Souza MD Work Phone: [facility]-LAB Path Spec [place] HospStart: 08-25-2024 End: 15-09-8511hvmhihypioNduedjx R WATERSFacility:CD:[id number]: 08-23-2024 End: 52-85-7481ikodvbbrdjVPCWOhioHealth Van Wert Hospitaltart: 08-23-2024 End: 52-33-8532Qphdypqmv for other preprocedural examinationMercy Health Tiffin Hospitaltart: 41-91-5113htdristkvrYhkbwlm R WATERS Facility:CD:[id number]: 08-11-2024 End: 31-26-1433btjjpvrqvhPoxxiil R WATERSFacility:EU [place]uskyStart: 07-28-2024 End: 42-96-1726Xylgth outpatient visit 15 minutesLayla Rodriguez LOADING MANAGER Work Phone: aNA BELLANUEComment on above:Post herpetic neuralgia (CMS/HCC)Start: 07-28-2024 End: 20-48-3471uilbrpqjbfUWMYD CARROLLNot AvailableStart: 07-28-2024 End: 30-55-9298Fprvyq flowsheetSaracoretta Rodriguez LOADING MANAGER Work Phone: ANA BELLEVUEStart: 07-28-2024 End: 42-48-4827Rzycnk flowsZeeshan Rodriguez JUSTINA Work Phone: ana BELLEVUEStart: 07-13-2024 End: 64-23-9425Ucwvbreoy Result EncounterGeneric External Data ProviderNOMS External Department UnsolicitedStart: 07-13-2024 End: 61-55-9507Jujgdxbyt Result EncounterGeneric External Data ProviderNOMS External Department UnsolicitedStart: 07-12-2024 End: 25-31-9296Kuggcpsqa Result EncounterGeneric External Data ProviderNOMS External Department UnsolicitedStart: 07-12-2024 End: 23-62-9253Tpkobikud Result EncounterGeneric External Data ProviderNOMS External Department UnsolicitedStart: 07-07-2024 End: 81-51-3841Bkjhwz Gui Malik MD Work Phone: noms [facility] FMStart: 07-07-2024 End: 23-72-8641Yzptvz Gui Malik MD Work Phone: noms [facility] FMStart: 07-07-2024 End: 29-65-8672Phwmszd encounter procedureJorge Luis Malik MD Work Phone: noms [facility] Work Phone: Start: 07-07-2024 End: 12-19-3724Bsdvdz follow up visit related to original Francy Malik MD Work Phone: noms [facility] FMComment on above:Medicare annual wellness visit, subsequent (Primary Dx); Type 2 diabetes mellitus with hyperglycemia, without long-term current use of insulin (CMS/HCC); Dyslipidemia (CMS/HCC); Chronic obstructive pulmonary disease, unspecified COPD type (CMS/HCC); Statin myopathy; Type 2 diabetes mellitus with other specified complication (CMS/HCC)Start: 07-07-2024 End: 45-87-8405poftdpiiafKUKM NADERERNot AvailableStart: 07-05-2024 End: 82-82-6668ycwtjnwrdqZlrgqtx R WATERSFacility:FTMCStart: 07-05-2024 End: 61-28-9235Fig Drop offLalo Mclain SOUZA [facility] Start: 07-05-2024 End: 08-20-3502axbhluqgsnPkccvez R WATERSFacility:EU BellevueStart: 07-05-2024 End: 58-44-0130Aozzhkx encounter procedureLalo SOUZA [facility] Chris start: 06-24-2024 End: 66-81-8714Wspcugyje Result EncounterJorge Luis Malik MD Work Phone: noms External Department UnsolicitedStart: 06-24-2024 End: 27-45-2491Klupfejiw Result EncounterJorge Luis Malik MD Work Phone: noms External Department UnsolicitedStart: 06-23-2024 End: 96-41-3824Uolhde flowsheetChristopher Meena DO Work Phone: ana SANDUSKYStart: 06-23-2024 End: 67-61-3646Nlapie flowsheetChristopher Meena DO Work Phone: ana SANDUSKYStart: 06-23-2024 End: 26-31-7580Bmuigw outpatient new 45 minutesChristopher Meena DO Work Phone: aNA SANDUSKYComment on above:Post herpetic neuralgia (CMS/HCC) (Primary Dx)Start: 06-23-2024 End: 44-27-5923ijefedglcgEDFEJUJCEDP HASSETTNot AvailableStart: 06-15-2024 ambulatoryPatrick WATERSFacility:EU [place]walkStart: 06-14-2024 End: 59-36-6249Nbsryl Gui Malik MD Work Phone: noms CWM FMStart: 06-14-2024 End: 83-10-7562Vfprqu Gui Malik MD Work Phone: NOXL CWM FMStart: 06-14-2024 End: 37-06-5125Rhimth outpatient visit 15 minutesJorge Luis Malik MD Work Phone: NOMS CWM FMComment on above:Gross hematuria (Primary Dx)Start: 06-14-2024 End: 98-03-8744jpspxaspryRJXZ NADERERNot AvailableStart: 05-24-2024 End: 06-47-9831Kyzbarskh Result EncounterJorge Luis Malik MD Work Phone: NOSL External Department UnsolicitedStart: 05-24-2024 End: 18-30-6767Ayxwiqwsw Result EncounterJorge Luis Malik MD Work Phone: noms External Department UnsolicitedStart: 05-17-2024 End: 34-90-4249Yjhpsc Gui Malik MD Work Phone: NOMS CWM FMStart: 05-17-2024 End: 25-44-0181Ndxybc Gui Malik MD Work Phone: NOMS CWM FMStart: 05-17-2024 End: 23-52-0314Ywjsgo outpatient visit 15 minutesJorge Luis Malik MD Work Phone: NOMS CWM FMComment on above:COPD exacerbation (CMS/HCC) (Primary Dx); Type 2 diabetes mellitus with hyperglycemia, without long-term current use of insulin (CMS/HCC); Dyslipidemia (CMS/HCC); Adult hypothyroidism (CMS/HCC); Encounter for screening prostate specific antigen (PSA) measurement; Encounter for long-term (current) use of medicationsStart: 05-17-2024 End: 67-97-7074tqcpfyjzimUFOE NADERERNot AvailableStart: 01-20-2024 End: 21-32-2977Umvhaealk Result EncounterJorge Luis Malik MD Work Phone: noms External Department UnsolicitedStart: 01-20-2024 End: 45-83-5020Sggengbfo Result EncounterJorge Luis Malik MD Work Phone: NOMS External Department UnsolicitedStart: 01-06-2024 End: 61-90-5153qvvcxoiyboYPAN NADERERNot AvailableStart: 12-02-2023 End: 20-25-5637skeyazifgwVSJG NADERERNot AvailableStart: 09-16-2022 End: 95-28-9817dkwlljdtbzVA JORGE LUIS A NADERERFacility:N2Jckmi: 02-21-2022 End: 92-19-3351fbghhelrvoAN JORGE LUIS A NADERERFacility:R6Ffgis: 02-12-2022 End: 81-61-2241eseqtqtyqbAM JORGE LUIS A NADERERFacility:H1 Procedures DateProcedureProcedure DetailPerforming ClinicianStart: 63-63-2232Wfxnzyikey, device (physical object)Lalo SOUZA Start: 05-39-9265ElzknnsatwHqgjiuw WATERS Start: 27-19-5840CJZ BASIC METABOLIC PANELGeneric External Data ProviderStart: 80-68-7437IP ECHO DOPPLER COMPLETEGeneric External Data ProviderStart: 15-05-6438Bylvjdajfccct resection of bladder neoplasm NGHIA GRAYSON Start: 02-10-7206XghjblglkzQLJPHYUH PERRY Start: 67-87-1461FM ABDOMEN PELVIS WO/W CONGeneric External Data ProviderStart: 49-75-2220XLA CREATININEGeneric External Data ProviderStart: 80-26-3233MRH UA (CLEAN/CATCH) MICROSCOPIC IF INDICATEJorge Luis Malik MD Work Phone: Start: 80-54-8477TZW CBC WITH AUTO DIFFJorge Luis Malik MD Work Phone: Start: 34-86-6580ADH HEMOGLOBIN F4XKdaoJorge Luis Malik MD Work Phone: Start: 96-26-4166XKA screeningDR JORGE LUIS PINORComment on above:Performed By: #### PSASC #### [facility] [address] [address] [address] Sulema BlairHisjesus of hernia repairPanorton hospitalk SOUZA Plan of Treatment DateCare ActivityDetailAuthorStart: 43-28-9563Rfzprvrr screeningDiabetes: Retinopathy ScreeningNOVT HealthcareStart: 02-05-2026Medicare Annual Wellness (AWV)Medicare Annual Wellness (AWV)[facility] HealthcareStart: 66-81-9772Buvkp screening for proteinDiabetes: Urine Protein ScreeningNOVT HealthcareStart: 04-08-2025 End: 32-28-7238Vplsixc encounter egarhwvax61/07/2025 9:45 AM EST Office Visit [facility] [address] [place] [phone] Jorge Luis Malik MD [address] [place] [phone] [facility]ITALMichel MONK FMStart: 61-03-1010Anzhpiwin vaccinationNOVT HealthcareStart: 01-04-2025 End: 20-64-3471Bgisdnaqbg A1c/Hemoglobin.total in BloodHemoglobin A1c Lab Routine Type 2 diabetes mellitus with hyperglycemia, without long-term current use of insulin (HCC) Expected: 01/04/2025 (Approximate), Expires: 01/04/2026[facility]aint [facility] Work Phone: Comment on above:Expected: 01/04/2025 (Approximate), Expires: 01/04/2026Start: 01-04-2025 End: 26-45-7856Mbjoojb encounter procedureNOCOMMUNITY HOS[facility]ITAL [facility] [place] [facility] FMComment on above:Arrived Start: 76-26-6035Oniwloiqqr A1c measurementDiabetes: Hemoglobin T9LSDPC HealthcareStart: 10-28-2024 End: 82-95-3729Hahiqbu encounter procedureANA BELLEVUEComment on above:Arrived Start: 07-28-2024 End: 75-08-8812Iqyxsef encounter procedureANA BELLEVUEComment on above:Arrived Start: 35-34-7424Ozotdwfvht A1c measurementDiabetes: Hemoglobin Z2RNIGY HealthcareStart: 07-07-2024 End: 49-83-2243Evuhltd encounter procedureNOVT CWM FMComment on above:Arrived Start: 06-23-2024 End: 54-77-5467Ckxjnxq encounter procedureNOVT ST NEUROLOGYComment on above: ArrivedStart: 06-14-2024 End: 72-24-6934Oqgaltsi identified in Urine by CultureUrine culture (clean catch) Microbiology Routine Gross hematuria Expected: 06/14/2024 (Approximate), Expires: 06/14/2025NOVT Healthcare Work Phone: Comment on above:Expected: 06/14/2024 (Approximate), Expires: 06/14/2025Start: 06-14-2024 End: 98-27-3982Tjelnihmzo complete panel - UrineUrinalysis with reflex microscopic (clean catch) Lab Routine Gross hematuria Expected: 06/14/2024 (A pproximate), Expires: 06/14/2025[facility] HealthcareComment on above:Expected: 06/14/2024 (Approximate), Expires: 06/14/2025Start: 06-14-2024 End: 44-57-9703Nzifnld encounter nxszlweni88/13/2025 1:15 PM EST Office Visit NOMS [facility] [address] [place] [phone] Jorge Luis Malik MD [address] [place] [phone] [facility]rivedRIVERSIDE COMM[facility] FMComment on above:ArrivedStart: 05-17-2024 End: 73-55-6331Dyptz metabolic 1998 panel - Serum or PlasmaBasic metabolic panel Lab Routine Encounter for long-term (current) use of medications Expected: (Approximate), Expires: 05/17/2025[facility] HealthcareComment on above: Expected: 05/17/2024 (Approximate), Expires: 05/17/2025Start: 05-17-2024 End: 28-62-0706UTM W Auto Differential panel - BloodCBC and differential Lab Routine Encounter for long-term (current) use of medications Expected: 05/02 (Approximate), Expires: 05/17/2025NOVT HealthcareComment on above: Expected: 05/17/2024 (Approximate), Expires: 05/17/2025Start: 05-17-2024 End: 55-14-2123Vamdtsydcf A1c/Hemoglobin.total in BloodHemoglobin A1c Lab Routine Type 2 diabetes mellitus with hyperglycemia, without long-term current use of insulin ([facility]) Expected: 05/17/2024 (Approximate), Expires: 05/17/2025 [facility] HealthcareComment on above:Expected: 05/17/2024 (Approximate), Expires: 05/17/2025Start: 05-17-2024 End: 76-35-6989Lzzmmow function 2000 panel - Serum or PlasmaHepatic function panel Lab Routine Encounter for long-term (current) use of medications Expected: 05/17/2024 (Approximate), Expires: 05/17/2025[facility] HealthcareComment on above: Expected: 05/17/2024 (Approximate), Expires: 05/17/2025Start: 05-17-2024 End: 07-40-8760Kmyss 1996 panel - Serum or PlasmaLipid panel Lab Routine Dyslipidemia ([facility]) Expected: 05/17/2024 (Approximate), Expires: 05/17/2025 [facility] HealthcareComment on above:Expected: 05/17/2024 (Approximate), Expires: 05/17/2025Start: 05-17-2024 End: 57-58-0382Ptktxbhokjof/Creatinine panel in random UrineMicroalbumin / creatinine, urine ratio Lab Routine Type 2 diabetes mellitus with hyperglycemia, without long-term current use of insulin ([facility]) Expected: 05/17/2024 (Approximate), Expires: 05/17/2025[facility] Work Phone: Comment on above:Expected: 05/17/2024 (Approximate), Expires: 05/17/2025Start: 05-17-2024 End: 27-55-4716Wzlkyifd specific Ag [Mass/volume] in Serum or PlasmaPSA Lab Routine Encounter for screening prostate specific antigen (PSA) measurement Expected: 05/17/2024 (Approximate), Expires: 05/17/2025NOVT HealthcareComment on above:Expected: 05/17/2024 (Approximate), Expires: 05/17/2025Start: 05-17-2024 End: 36-16-4660Mehxvudqyef [Units/volume] in Serum or PlasmaTSH Lab Routine Adult hypothyroidism (CMS/HCC) Expected: 05/17/2024 (Approximate), Expires: 05/17/2025[facility] HealthcareComment on above:Expected: 05/17/2024 (Approximate), Expires: 05/17/2025Start: 05-17-2024 End: 95-50-6982Reypydxlc (T4) free [Mass/volume] in Serum or PlasmaT4, free Lab Routine Adult hypothyroidism (CMS/HCC) Expected: 05/17/2024 (Approximate), Expires: 05/17/2025[facility] HealthcareComment on above:Expected: 05/17/2024 (Approximate), Expires: 05/17/2025Start: 05-17-2024 End: 91-21-4439Sutpcwd encounter urvhrzdrg98/16/2024 10:15 AM EST Office Visit [facility] [address] [place] [phone] Jorge Luis Malik MD [address] [place] [phone] ArrivedNOCOMMUNITY [facility] FMComment on above:ArrivedStart: 01-34-0482Vhvvt screening for proteinDiabetes: Urine Protein ScreeningNOVT HealthcareStart: 02-01-2024 Influenza vaccinationInfluenza Vaccine (#1)[facility] HealthcareStart: 11-01-2023 Hemoglobin A1c measurementDiabetes: Hemoglobin W9NRCAE HealthcareStart: 1942Medicare Annual Wellness (AWV)Medicare Annual Wellness (AWV)[facility] Immunizations Immunization DateImmunizationNotesCare DvmmazvqShsvixvp98-32-7162jsukhmqa calmette-luis vaccineShannan Jose [facility]09-10-2025bacillus calmette-luis vaccineLauren Rebeca [facility]09-03-2025bacillus calmette-luis vaccineLauren Rebeca [facility]06-16-2025bacillus calmette-luis vaccineJENNIFER RADHA [facility]06-09-2025bacillus calmette-luis vaccineJENNIFER RADHA [facility]06-02-2025bacillus calmette-luis vaccineJENNIFER RADHA [facility]05-27-2025bacillus calmette-luis vaccineJENNIFER RADHA [facility]05-19-2025bacillus calmette-luis vaccineJENNIFER RADHA [facility]05-12-2025bacillus calmette-luis vaccineJENNIFER RADHA [facility]07-12-2024pneumococcal 20-valent conjugate vaccinePatrick SOUZA [facility]07-12-2024zoster vaccine recombinantPatrick SOUZA [facility]05-07-2024zoster vaccine recombinantPatrick SOUZA [facility]10-06-2023Influenza, Seasonal, Quadrivalent, AdjuvantedGeneric Provider [facility] HospitalHcnehwqhoj01-92-0163znkiywmlv virus vaccine, unspecified formulationJorge Luis Malik MD Work Phone: [facility]11-07-2022influenza virus vaccine, unspecified formulationBridge International Academies [facility]11-07-2022Influenza, High-dose Seasonal, Quadrivalent, Preservative Free Generic ProviderSullivan County Memorial HospitalRogznwgbtx68-41-2404HRMY-QqQ-0 (COVID-19) mRNA BNT-162b2 [employer] [facility]10-21-2021influenza virus vaccine, unspecified formulationBridge [employer] [facility]10-21-2021Influenza, Seasonal, Quadrivalent, AdjuvantedGeneric Provider [facility] HospitalRoejkmtocb74-10-8848LSIY-JmC-5 (COVID-19) mRNA BNT-162b2 [employer] [facility] on above:Result Comment: 2024-07-05: MBF1444-61-8449ROMM-QsF-8 (COVID-19) mRNA BNT-162b2 [employer] [facility] on above:Result Comment: 2024-07-05: JGJ4900-00-2859nsviobg vaccine or immune globulinGeneric [facility] GateDgujhycevf68-17-4367vtyyvdqwa virus vaccine, unspecified formulationBridge [employer] [facility]10-09-2019influenza, high dose seasonal, preservative-freeGeneric ProviderSullivan County Memorial HospitalFgdtkxibxg20-81-7508tejckehwh virus vaccine, unspecified formulationBridge [employer]ies [facility]09-12-2018influenza, high dose seasonal, preservative-freeGeneric [facility] North GatePiotmosqjh87-79-1860imfutsinf virus vaccine, unspecified formulationLalo SOUZA [facility]11-09-2016influenza, high dose seasonal, preservative-freeGeneric [facility] North GateYbdhmwjifz24-39-7810qruneeayu virus vaccine, unspecified formulationLalo SOUZA [facility]10-09-2015influenza, high dose seasonal, preservative-freeGeneric [facility] North GateTutxgajkbg52-07-2226fuskljmdatrj polysaccharide vaccine, 23 valent Lalo SOUZA [facility] Payers DatePayer CategoryPayerPolicy [id number] [id number] 2022Medicare ..[id number] 2022Medicare (Managed Care)[employer] ..[id number] 2.16.840.1.718615.3.579.[id number] 2.16.840.1.680637.3.579.2.46966-43-6545Jstbrsm0172569 2.16.840.1.714081.3.579.2.5[id number] 2.16.840.1.335255.3.579.2.96678-13-2170Dptipmp19898518 2.16.840.1.436262.3.579.2.89552-53-8895Tdvlopk47204472 2.16.840.1.973888.3.579.2.42756-26-2233Rrpalbk8902087 2.16.840.1.968585.3.579.2.867101-33-9835Ajtrbjt7536512 2.16.840.1.536187.3.579.2.573333-55-8386Bixuowl2382447 2.16.840.1.173702.3.579.2.172062-18-1503Hncnjta9131770 2.16.840.1.140213.3.579.2.202331-61-0454Gfmhetw3923955 2.16.840.1.333685.3.579.2.274963-80-9440Xzpvzhj7145477 2.16.840.1.776775.3.579.2.599893-79-6117Wydwybe8495299 2.16.840.1.751036.3.579.2.860666-50-6699Vaofuqh7847752 2.16.840.1.185815.3.579.2.157155-07-6989Nhkfhsm29711344 2.16.840.1.879032.3.579.2.92468-26-9145Hnkekrh84302966 2.16.840.1.552102.3.579.2.38708-50-6685Pcagvrs14420561 2.16.840.1.894304.3.579.2.49380-50-2861Fntbfwy00779867 2.16.840.1.833735.3.579.2.66146-74-1076Ydbvmpp95929553 2.16.840.1.150323.3.579.2.70462-80-2565Oczifjh93813416 2.16.840.1.234730.3.579.2.33569-53-6356Eqdigfx67914133 2.16840.1.557086.3.579.2.26043-55-6112Ysworgl40172766 2.16.840.1.068406.3.579.2.74326-24-0521Sfkbggn13626389 2.16.840.1.927256.3.579.2.75288-00-2570Sqylrtx48846385 2.16840.1.382094.3.579.2.30893-67-4944Shvvgbh79980670 2.16.840.1.575000.3.579.2.66866-99-5277Aixmoxa74253405 2.16.840.1.261826.3.579.2.98862-25-4301Nrsoggf35551114 2.16.840.1.109940.3.579.2.82897-54-8172Mzntuml95527211 2.16.840.1.603118.3.579.2.28733-03-6311Wlnnery56899256 2.16.840.1.216902.3.579.2.96591-06-6189Nnfdpwt38681934 2.16.840.1.277442.3.579.2.76196-02-1626Fanoghe92363231 2.16.840.1.752873.3.579.2.56408-31-2214Dzvrfyy51368385 2.16.840.1.978148.3.579.2.85427-87-8752Qwzdghh91527924 2.16.840.1.022950.3.579.2.18548-71-3172Syqngxz06714142 2.16.840.1.260120.3.579.2.044DwcqmbfKSC766019942037 20735sn0-997k-619m-3097-5332c9p10ek1 Social History DateTypeDetailFacilityStart: 07-07-2023 End: 11-60-9612Qodlmzt smoking status NHISEx-smokerNOMS HealthcareComment on above:Quit 56 years agoStart: 06-02-1949 End: 23-66-7186Lqllmkv of tobacco useCurrent smokerNOMS HealthcareStart: 06-02-1949 End: 97-49-2328Dieccao of tobacco useCigarette SmokerNOMS HealthcareStart: 07-07-2023 End: 84-54-2891Gflwytlhdf smoked current (pack per day) - Zouvjmpi3OZYB HealthcareStart: 07-07-2023 End: 12-12-9086Ialbecr use and exposureSmokeless tobacco non-userNOMS Healthcare Start: 01-06-2024 End: 15-16-7571Qhvjokd use panelNOMS HealthcareStart: 35-10-5093Abm assigned at birthNot on fileNOMS HealthcareStart: 00-43-6859Tmnqitx smoking statusNever smoked tobacco (finding)[facility] Hospitalo smoking statusNeverExecutive [facility] of [facility] BellevueComment on above:Quit 56 years agoStart: 08-02-2024 End: 80-61-5557Jvhmkkynu beverage intakeEx-drinker (finding)[facility] Tobacco smoking status NHISUnknown if ever smokedRiverside Methodist Hospital Work Phone: Start: 11-08-2013 End: 41-93-8696EoqTtfk (finding)[facility] Centertart: 75-00-6128Kbm Assigned At The [facility] Hospitalexual OrientationExec[facility] Medical Equipment Procedure CodeEquipment CodeEquipment Original TextEquipment IdentifierDatesUSE ONCE A [id number]: 44-56-8310Otadj Sugar Diagnostic (Onetouch Ultra Test) stripStart: 03-10-2025 Functional Status LzncMppiwfnjugOnhdunUnnhvypy92-12-3526Xqgfslvvzx StatusN/AExec[facility] of [facility]05-12-2025Functional StatusN/AExec[facility]02-03-2025Functional StatusN/A [facility] Clinical Notes 05-17-2024 to 03-21-2025 Note Date & XrtjUxhnYluhgeor06-07-3669 [facility] Chief Complaint: Patient here for a follow up Coreg decreased to 3.125. Patient states he just found out this am that his bladder cancer has returned and will be having surgery to have it surgical removed at the end of the month. Patient denies chest pain, leg swelling, heart racing/palpations.Patient complains of lightheaded/dizziness, fatigue, SOB/TORRES. HPI: Jam Ramirez Jr. is a 84 [...] a past medical history of Bladder cancer ([facility]), COPD (chronic obstructive pulmonary disease) ([facility]), Diabetes mellitus ([facility]), Hematuria, Hyperlipidemia, and Shingles. Surgical History He [...] by mouth two times daily. (Patient not taking: Reported on 12/14/2024), Disp: , Rfl: Last Recorded Vitals BP 120/71 (BP Location: Right arm, Patient Position: Sitting) Pulse 87 Ht 1.778 m (5' 10 ) Wt 79.8 kg (176 lb) SpO2 92% BMI 25.25 kg/m??? Physical Examination: GENERAL: alert and oriented [...] and symmetric in bilateral upper and lower (more content not included)...[facility]10-20-2025 Hospital Discharge instructions Patient Education 03/21/2025 08:47:17 Transurethral Resection of Bladder Tumor, Care After Transurethral Resection of Bladder Tumor, Care After The following information offers guidance on how to care for yourself after your procedure. Your health care provider may also give you more specific instructions. If you have problems or questions, contact your health care provider. What can I expect after the procedure? After the procedure, it is common to have: A small amount of blood or small blood clots in your urine for up to 2 weeks. Soreness or mild pain from your catheter. After your catheter is removed, you may have mild soreness, especially when urinating. A need to urinate often. Pain in your lower abdomen. Follow these instructions at home: Medicines Take vtry-ftj-jgwmqso and prescription medicines only as told by your health care provider. If you were prescribed an antibiotic medicine, take it as told by your health care provider. Do notstop taking the antibiotic even if you start to feel better. Ask your health care provider if the medicine prescribed to you: ?Requires you to avoid driving or using machinery. ?Can cause constipation. You may need to take these actions to prevent or treat constipation: ?Drink enough fluid to keep your urine pale yellow. ?Take gewb-uns-loukcpw or prescription medicines. ?Eat foods that are high in fiber, such as beans, whole grains, and fresh fruits and vegetables. ?Limit foods that are high in fat and processed sugars, such as fried or sweet foods. Activity If you were given a sedative during the procedure, it can affect you for several hours. Do not drive or operate machinery until your health care provider says that it is safe. Rest as told by your health care provider. Avoid sitting for a long time without moving. Get up to take short walks every 1 2 hours. This is important to improve blood flow and breathing. Ask for help if you feel weak or unsteady. Do not lift anything that is heavier than 10 lb (4.5 kg), or the limit that you are told, until your health care provider says that it is safe. Avoid intense physical activity for as long as told by your health care provider. Do not have sex until your health care provider approves. Return to your normal activities as told by your health care provider. Ask your health care provider what activities are safe for you. General instructions If you have a catheter, follow instructions from your health care provider about caring for your catheter and your drainage bag. Do not drink alcohol for as long as told by your health care provider. This is especially importantif you are taking prescription pain medicines. Do not use any products that contain nicotine or tobacco. These products include cigarettes, chewing tobacco, and vaping devices, such as e-cigarettes. If you need help quitting, ask your health careprovider. Wear compression stockings as told by your health care provider. These stockings help to prevent blood clots and reduce swelling in your legs. Keep all follow-up visits. This is important. ?You will need to be followed closely with regular checks of your bladder and urethra (cystoscopies) to make sure that the cancer does not come back. Contact a health care provider if: You have blood in your urine for more than 2 weeks. You become constipated. Signs of constipation may include: ?Having fewer than three bowel movements in a week. ?Difficulty having a bowel movement. ?Stools that are dry, hard, or larger than normal. You have a urinary catheter in place, and you have: ?Spasms or pain. ?Problems with your catheter or your catheter is blocked. Your catheter has been taken out but you are unable to urinate. You have signs of infection, such as: ?Fever or chills. ?Cloudy or bad-smelling urine. Get help right away if: You have severe abdominal pain that gets worse or does not improve with medicine. You have a lot of large blood clots in your urine. You develop swelling or pain in your leg. You have difficulty breathing. These symptoms may be an emergency. Get help right away. Call 911. Do not wait to see if the symptoms will go away. Do not drive yourself to the hospital. Summary After your procedure, it is common to have a small amount of blood or small blood clots in your urine, soreness or mild pain from your catheter, and pain in your lower abdomen. Take wraj-hed-sosueln and prescription medicines only as told by your health care provider. Rest as told by your health care provider. Follow your health care provider's instructions about returning to normal activities. Ask what activities are safe for you. If you have a catheter, follow instructions from your health care provider about caring for your catheter and your drainage bag. This information is not intended to replace advice given to you by your health care provider. Make sure you discuss any questions you have with your health care provider. Document Revised: 05/24/2022 Document Reviewed: 05/24/2022 Apartment List Patient Education 2023 [employer]. 03/21/2025 08:47:17 Transurethral Resection of Bladder Tumor Transurethral Resection of Bladder Tumor Transurethral resection of a bladder tumor is the removal (resection) of cancerous tissue (tumor) from the inside wall of the bladder. The bladder is the organ that holds urine. The tumor is removed through the tube that carries urine out of the body (urethra). In a transurethral resection, a thin telescope with a light, a tiny camera, and an electric cuttingedge (resectoscope) is passed through the urethra. In men, the opening of the urethra is at the endof the penis. In women, it is just above the opening of the vagina. Tell a health care provider about: Any allergies you have. All medicines you are taking, including vitamins, herbs, eye drops, creams, and qbok-bxt-vpffucq medicines. Any problems you or family members have had with anesthetic medicines. Any bleeding problems you have. Any surgeries you have had. Any medical conditions you have, including recent urinary tract infections. Whether you are or may be . What are the risks? Generally, this is a safe procedure. However, problems may occur, including: Infection. Bleeding. Allergic reactions to medicines. Damage to nearby structures or organs. Difficulty urinating from blockage of the urethra or not being able to urinate (urinary retention). Deep vein thrombosis. This is a blood clot that can develop in your leg. Recurring cancer. What happens before the procedure? When to stop eating and drinking Follow instructions from your health care provider about what you may eat and drink before your procedure. These may include: 8 hours before your procedure ?Stop eating most foods. Do not eat meat, fried foods, or fatty foods. ?Eat only light foods, such as toast or crackers. ?All liquids are okay except energy drinks and alcohol. 6 hours before your procedure ?Stop eating. ?Drink only clear liquids, such as water, clear fruit juice, black coffee, plain tea, and sports drinks. ?Do not drink energy drinks or alcohol. 2 hours before your procedure ?Stop drinking all liquids. ?You may be allowed to take medicines with small sips of water. Medicines Ask your health care provider about: Changing or stopping your regular medicines. This is especially important if you are taking diabetes medicines or blood thinners. Taking medicines such as aspirin and ibuprofen. These medicines can thin your blood. Do not take these medicines unless your health care provider tells you to take them. Taking arxu-oms-sbhyzip medicines, vitamins, herbs, and supplements. General instructions If you will be going home right after the procedure, plan to have a responsible adult: ?Take you home from the hospital or clinic. You will not be allowed to drive. ?Care for you for the time you are told. Ask your health care provider what steps will be taken to help prevent infection. These steps may include: ? Washing skin with a germ-killing soap. ? Taking antibiotic medicine. Do not use any products that contain nicotine or tobacco for at least 4 weeks before the procedure.These products include cigarettes, chewing tobacco, and vaping devices, such as e-cigarettes. If you need help quitting, ask your health care provider. What happens during the procedure? An IV will be inserted into one of your veins. You will be given one or more of the following: ?A medicine to help you relax (sedative). ?A medicine that is injected into your spine to numb the area below and slightly above the injection site (spinal anesthetic). ?A medicine that is injected into an area of your body to numb everything below the injection site (regional anesthetic). ?A medicine to make you fall asleep (general anesthetic). Your legs will be placed in foot rests (stirrups) to open your legs and bend your knees. The resectoscope will be passed through your urethra and into your bladder. The part of your bladder with the tumor will be resected by the cutting edge of the resectoscope. Fluid will be passed to rinse out the cut tissues (irrigation). The resectoscope will then be taken out. A small, thin tube (catheter) will be passed through your urethra and into your bladder. The catheter will drain urine into a bag outside of your body. The procedure may vary among health care providers and hospitals. What happens after the procedure? Your blood pressure, heart rate, breathing rate, and blood oxygen level will be monitored until youleave the hospital or clinic. You may continue to receive fluids and medicines through an IV. You will be given pain medicine to relieve pain. You will have a catheter to drain your urine. ?The amount of urine will be measured. If you have blood in your urine, your bladder may be rinsed out by passing fluid through your catheter. You will be encouraged to walk as soon as you can. You may have to wear compression stockings. These stockings help to prevent blood clots and reduce swelling in your legs. If you were given a sedative during the procedure, it can affect you for several hours. Do not drive or operate machinery until your health care provider says that it is safe. Summary Transurethral resection of a bladder tumor is the removal (resection) of a cancerous growth (tumor)on the inside wall of the bladder. To do this procedure, your health care provider uses a thin telescope with a light, a tiny camera, and an electric cutting edge (resectoscope) that is guided to your bladder through your urethra. Thepart of your bladder that is affected by the tumor will be resected by the cutting edge of the resectoscope. A catheter will be passed through your urethra and into your bladder. The catheter will drain urineinto a bag outside of your body. If you will be going home right after the procedure, plan to have a responsible adult take you homefrom the hospital or clinic. You will not be allowed to drive. This information is not intended to replace advice given to you by your health care provider. Make sure you discuss any questions you have with your health care provider. Document Revised: 05/24/2022 Document Reviewed: 05/24/2022 Apartment List Patient Education 2023 [employer]. 03/21/2025 08:44:09 Cancer Screening for Males Cancer Screening for Males A cancer screening is a test or exam that checks for cancer. Work with your health care provider tocreate a cancer screening schedule that protects your health. Who should have screening? All people who are male should be considered for screening of certain cancers, including colorectalcancer, prostate cancer, lung cancer, and skin cancer. Your health care provider may recommend screenings for other types of cancer if: You have had cancer before. You have a family member with cancer. You have genes that could increase the risk of cancer. You have risk factors for certain cancers, such as current or past use of tobacco products or beingoverweight. What are the benefits of screening? Cancer screening is done to look for cancer in the very early stages, before it spreads and becomesharder to treat and before you would start [...] a flexible tube with a small camera isinserted into the rectum. CT colonography. This test [...] stool. For this test, you will need tocollect stool samples at home. Stool DNA test. This test looks for blood in stool and any changes in DNA that can lead to colon cancer. For this test, you will need to collect a stool sample at home and send it to a lab. All adults should have screenings starting at 45 years old and continuing through 75 years old. Formales 76 85 years old, the decision to [...] start screening at an earlier age. Talk withyour health care provider about which screening test [...] old. Talk with your health care provider aboutwhether screening is right for you and, if [...] if anything looks unusual. Males with a evkwwx-ehsp-aqjnpd risk for skin cancer may want to see a security services specialist (tray casting machine operator) for an annual body check. Where to find more information [place] [employer]: cancer.org Centers for Disease Control and Prevention: cdc.gov National Cancer [place]: cancer.gov Contact a health care provider if: [...] provider. Document Revised: 05/27/2023 Document Reviewed: 12/09/2022 Elsevier Patient Education 2023 Comp[employer]eleration. Follow Up Care 02/03/2025 13:51:49 With:LIBBY QUINTANA, Lalo Mclain, URL Address: [address] [place], [place] [address], [place] [address] When: Unknown [facility] 10-20-2025 NotePatient Education Oncology Transurethral Resection of Bladder Tumor, [...] these instructions at home: Medicines ??? Take vatm-itn-xqigdzb and prescription medicines only as told by your health care provider. ??? If you were prescribed an antibiotic medicine, take it as told by your health care provider. Donot stop taking the antibiotic even if you start to feel better. ??? Ask your health care provider if the medicine prescribed to you: ? Requires you to avoid driving or using machinery. ? Can cause constipation. You may need to take these actions to prevent or treat constipation: ? Drink enough fluid to keep your urine pale yellow. ? Take yvwc-sbd-kxxzmns or prescription medicines. ? Eat foods that [...] or the limit that you are told, untilyour health care provider says that it is [...] of blood or small blood clots in yoururine, soreness or mild pain from your catheter, and pain in your lower abdomen. ??? Take kukn-bdd-taemxhg and prescription medicines only as told by your health care provider. ??? Rest as told by your health care provider. Follow your health care provider's instructions about returning to normal activities. Ask what activities are safe for you. ??? If you have a catheter, follow instructions from your health care provider about caring for your catheter and your drainage bag. (more content not included)...[facility]09-18-2025 Evaluation note* Diagnosis Onset Date Resolution Status Admit Date Encounter for medication monitoring acuteSeptember 2024 10:20amCognitive impairmentchronicSeptember 2024 10:20amPost herpetic neuralgiachronicSeptember 2024 10:20amBenign essential hypertensionacuteOctober 2024 10:55amCOPD (chronic obstructive pulmonary disease)acuteOctober 2024 10:55amGeneralized anxiety disorder acuteOctober 2024 10:55amLumbar spondylosisacuteOctober 2024 10:55am Type 2 diabetes mellitus with hyperglycemiaacuteOctober 2024 10:55am [facility] Work Phone: [phone]) 977-447909-17-2025 Hospital Discharge instructions Patient Education 02/16/2025 11:30:03 [...] cells. Follow these instructions at home: Take fdlq-xcj-pzlvpct and prescription medicines only as told by your health care provider. If you were prescribed an antibiotic medicine, take it as told by your health care provider. Do notstop using the antibiotic even if you start to feel better. Eat a healthy diet. Some treatments might affect your appetite. Do not use any products that contain nicotine or tobacco. These products include cigarettes, chewing tobacco, and vaping devices, such as e-cigarettes. If you need help quitting, ask your health careprovider. Consider joining a support group. This may help you learn to deal with the stress of having bladdercancer. Tell your cancer care team if you develop side effects. Your team may be able to recommend ways to get relief. Keep all follow-up visits. This is important. Where to find more information [place] [employer] (ACS): cancer.org National Cancer [place] (NCI): cancer.gov Contact a health care provider [...] to deal with the stress of having bladdercancer. This information is not intended to replace advice given to you by your health care provider. Make sure you discuss any questions you have with your health care provider. Document Revised: 04/29/2022 Document Reviewed: 04/29/2022 Apartment List Patient Education 2023 [employer]eleration. Follow Up Care 01/04/2025 16:47:42 With:LIBBY QUINTANA, Lalo Mclain, URL Address: [address] [place] [address]- When: Unknown Comments:Surveillance cysto scheduled 03/21/25 [facility] 09-17-2025 NotePatient Education Oncology Bladder Cancer Bladder cancer is [...] Follow these instructions at home: ??? Take pxma-rds-spkpiie and prescription medicines only as told by your health care provider. ??? If you were prescribed an antibiotic medicine, take it as told by your health care provider. Donot stop using the antibiotic even if you [...] Your team may be able to recommend waysto get relief. ??? Keep all follow-up visits. This is important. Where to find more information ??? [place] [employer] (ACS): cancer.org ??? National Cancer [place] (NCI): cancer.gov Contact a health care provider [...] physical exam, lab tests, imaging tests, and yoursymptoms. ??? Your health care provider may recommend one or more types of treatment based on the stage of your cancer. ??? Consider joining a support group. This may help you learn to deal with the stress of having bladder cancer. This information is n (more content not included)...[facility] 02-09-2025 Hospital Discharge instructions Patient Education [...] cells. Follow these instructions at home: Take dkxn-nmm-lmfuozr and prescription medicines only as told by your health care provider. If you were prescribed an antibiotic medicine, take it as told by your health care provider. Do notstop using the antibiotic even if you start to feel better. Eat a healthy diet. Some treatments might affect your appetite. Do not use any products that contain nicotine or tobacco. These products include cigarettes, chewing tobacco, and vaping devices, such as e-cigarettes. If you need help quitting, ask your health careprovider. Consider joining a support group. This may help you learn to deal with the stress of having bladdercancer. Tell your cancer care team if you develop side effects. Your team may be able to recommend ways to get relief. Keep all follow-up visits. This is important. Where to find more information [place] [employer] (ACS): cancer.org National Cancer [place] (NCI): cancer.gov Contact a health care provider [...] to deal with the stress of having bladdercancer. This information is not intended to replace advice given to you by your health care provider. Make sure you discuss any questions you have with your health care provider. Document Revised: 04/29/2022 Document Reviewed: 04/29/2022 Apartment List Patient Education 2023 [employer]. Follow Up Care 01/04/2025 16:45:50 With:Shannan Jose PA-C, DANIELA Address: When: Unknown Comments:RTC in 1 week for BCG #3 of 3 [facility] 09-10-2025 NotePatient Education Oncology Bladder Cancer Bladder cancer is [...] Follow these instructions at home: ??? Take juuf-ftl-sjtpuds and prescription medicines only as told by your health care provider. ??? If you were prescribed an antibiotic medicine, take it as told by your health care provider. Donot stop using the antibiotic even if you [...] Your team may be able to recommend waysto get relief. ??? Keep all follow-up visits. This is important. Where to find more information ??? [place] [employer] (ACS): cancer.org ??? National Cancer [place] (NCI): cancer.gov Contact a health care provider [...] physical exam, lab tests, imaging tests, and yoursymptoms. ??? Your health care provider may recommend one or more types of treatment based on the stage of your cancer. ??? Consider joining a support group. This may help you learn to deal with the stress of having bladder cancer. This information is n (more content not included)...[facility] 02-02-2025 Hospital Discharge instructions Patient Education [...] cells. Follow these instructions at home: Take xxkb-fgu-rrladtg and prescription medicines only as told by your health care provider. If you were prescribed an antibiotic medicine, take it as told by your health care provider. Do notstop using the antibiotic even if you start to feel better. Eat a healthy diet. Some treatments might affect your appetite. Do not use any products that contain nicotine or tobacco. These products include cigarettes, chewing tobacco, and vaping devices, such as e-cigarettes. If you need help quitting, ask your health careprovider. Consider joining a support group. This may help you learn to deal with the stress of having bladdercancer. Tell your cancer care team if you develop side effects. Your team may be able to recommend ways to get relief. Keep all follow-up visits. This is important. Where to find more information [place] [employer] (ACS): cancer.org National Cancer [place] (NCI): cancer.gov Contact a health care provider [...] to deal with the stress of having bladdercancer. This information is not intended to replace advice given to you by your health care provider. Make sure you discuss any questions you have with your health care provider. Document Revised: 04/29/2022 Document Reviewed: 04/29/2022 Apartment List Patient Education 2023 [employer]. Follow Up Care 01/04/2025 16:43:19 With:Shannan Jose PA-C, URL Address: When: Unknown Comments:RTO in 1 week for BCG #2 of 3 [facility] 09-03-2025 NotePatient Education Oncology Bladder Cancer Bladder cancer is [...] Follow these instructions at home: ??? Take nllw-vto-gwxcqkf and prescription medicines only as told by your health care provider. ??? If you were prescribed an antibiotic medicine, take it as told by your health care provider. Donot stop using the antibiotic even if you [...] Your team may be able to recommend waysto get relief. ??? Keep all follow-up visits. This is important. Where to find more information ??? [place] [employer] (ACS): cancer.org ??? National Cancer [place] (NCI): cancer.gov Contact a health care provider [...] physical exam, lab tests, imaging tests, and yoursymptoms. ??? Your health care provider may recommend one or more types of treatment based on the stage of your cancer. ??? Consider joining a support group. This may help you learn to deal with the stress of having bladder cancer. This information is n (more content not included)...[facility] 01-04-2025 History of Present illness Narrative* Jorge Luis Malik MD - 01/04/2025 2:21 PM EDTAssociated Problem(s): Urothelial carcinoma of bladder (HCC) Follow with urology. * Jorge Luis Malik MD - 01/04/2025 2:21 PM EDTAssociated Problem(s): Type 2 diabetes mellitus with hyperglycemia (HCC) Reports BS variable and due for A1C. Stick to ADA diet and limit carbs. * Jorge Luis Malik MD - 01/04/2025 2:21 PM EDTAssociated Problem(s): Post herpetic neuralgia Pain improved with trileptal and continue. Use hydroxyzine for itching. * Jorge Luis Malik MD - 01/04/2025 2:21 PM EDTAssociated Problem(s): Lumbar spondylosis Pain stable and continue walking. Use robaxin PRN. * Jorge Luis Malik MD - 01/04/2025 2:21 PM EDTAssociated Problem(s): Generalized anxiety disorder Occasional symptoms but tolerable and use xanax PRN. * Jorge Luis Malik MD - 01/04/2025 2:21 PM EDTAssociated Problem(s): COPD (chronic obstructive pulmonary disease) (HCC) Symptoms stable and use albuterol PRN. * Jorge Luis Malik MD - 01/04/2025 2:21 PM EDTAssociated Problem(s): Benign essential hypertension BP controlled and monitor PRN. * Jorge Luis Malik MD - 01/04/2025 1:30 PM EDT Images from the original note [...] Mild cough but no sputum. Need to stopand rest frequently. Using albuterol PRN and helps. [...] This Visit COPD (chronic obstructive pulmonary disease) (HCC) Symptoms stable and use albuterol PRN. Generalized anxiety disorder Occasional symptoms but tolerable and use xanax PRN. Post herpetic neuralgia Pain improved with trileptal and continue. Use hydroxyzine for itching. Type 2 diabetes mellitus with hyperglycemia (HCC) - Primary Reports BS variable and due for A1C. Stick to ADA diet and limit carbs. Relevant Orders Hemoglobin A1c Lumbar spondylosis Pain stable and continue walking. Use robaxin PRN. Urothelial carcinoma of bladder (HCC) Follow with urology. Benign essential hypertension BP controlled and monitor PRN. documented in this encounterSullivan County [facility] [id number] Hospital Discharge instructions Patient Education 12/27/2024 08:24:48 Cancer Screening for Males Cancer Screening for Males A cancer screening is a test or exam that checks for cancer. Work with your health care provider tocreate a cancer screening schedule that protects your health. Who should have screening? All people who are male should be considered for screening of certain cancers, including colorectalcancer, prostate cancer, lung cancer, and skin cancer. Your health care provider may recommend screenings for other types of cancer if: You have had cancer before. You have a family member with cancer. You have genes that could increase the risk of cancer. You have risk factors for certain cancers, such as current or past use of tobacco products or beingoverweight. What are the benefits of screening? Cancer screening is done to look for cancer in the very early stages, before it spreads and becomesharder to treat and before you would start [...] a flexible tube with a small camera isinserted into the rectum. CT colonography. This test [...] stool. For this test, you will need tocollect stool samples at home. Stool DNA test. This test looks for blood in stool and any changes in DNA that can lead to colon cancer. For this test, you will need to collect a stool sample at home and send it to a lab. All adults should have screenings starting at 45 years old and continuing through 75 years old. Formales 76 85 years old, the decision to [...] start screening at an earlier age. Talk withyour health care provider about which screening test [...] old. Talk with your health care provider aboutwhether screening is right for you and, if [...] if anything looks unusual. Males with a scqiob-jrzo-scvmpo risk for skin cancer may want to see a security services specialist (tray casting machine operator) for an annual body check. Where to find more information [place] [employer]: cancer.org Centers for Disease Control and Prevention: cdc.gov National Cancer [place]: cancer.gov Contact a health care provider if: [...] provider. Document Revised: 05/27/2023 Document Reviewed: 12/09/2022 Apartment List Patient Education 2023 Compact Particle Acceleration. Follow Up Care 12/02/2024 15:07:34 With:LIBBY QUINTANA, Lalo Mclain, URL Address: [facility] [address] , [place] [address]- [phone] When: Unknown Comments:BCG x3, cysto in 3 mos [facility] [place] 07-28-2025 NotePatient Education Oncology Cancer Screening for Males A cancer screening is a test or exam that checks for cancer. Work with your health care provider tocreate a cancer screening schedule that protects your health. Who should have screening? All people who are male should be considered for screening of certain cancers, including colorectalcancer, prostate cancer, lung cancer, and skin cancer. [...] very early stages, before it spreads and becomesharder to treat and before you would start [...] old and continuing through 75 years old. Formales 76?85 years old, the decision to be screened should be based on a person's preferences, life expectancy, overall health, and prior screening history. Your health care provider may recommend screening before 45 years old. You will have tests every 1?10 years, depending on your results and the type of screening test. People at increased risk should start screening at an earlier age. Talk withyour health care provider about which screening test [...] such as being an person or having aclose family member with prostate cancer. ??? You have had gene changes or a genetic condition that was passed on to you from a parent (inherited). These gene changes or genetic conditions include BRCA1 or BRCA2 gene mutations or Jameson syndrome. ??? You have symptoms of prostate cancer, such as problems urinating or problems getting or keepingan erection (erectile dysfunction). When you have been screened for prostate cancer, future screening may be recommended based on the results of your blood tests. Prostate cancer screening for males with average risk may start at 50 years old. Males with risk factors may need to be screened earlier, at 40?45 years old. Talk with your health care provider aboutwhether screening is right for you and, if [...] if anything looks unusual. Males with a fkaxmo-ylbw-vdguvo risk for skin cancer may want to see a security services specialist (dermatologi (more content not included)...[facility] Chief Complaint: Patient here [...] history of COPD (chronic obstructive pulmonary disease) ([facility]), Diabetes mellitus ([facility]), Hematuria, and Hyperlipidemia. Surgical History He [...] Mild aortic valve reg (more content not included)...[facility]06-16-2025 Hospital Discharge instructions Patient Education 11/15/2024 14:16:57 [...] cells. Follow these instructions at home: Take xalm-lrn-higtrdw and prescription medicines only as told by your health care provider. If you were prescribed an antibiotic medicine, take it as told by your health care provider. Do notstop using the antibiotic even if you start to feel better. Eat a healthy diet. Some treatments might affect your appetite. Do not use any products that contain nicotine or tobacco. These products include cigarettes, chewing tobacco, and vaping devices, such as e-cigarettes. If you need help quitting, ask your health careprovider. Consider joining a support group. This may help you learn to deal with the stress of having bladdercancer. Tell your cancer care team if you develop side effects. Your team may be able to recommend ways to get relief. Keep all follow-up visits. This is important. Where to find more information [place] [employer] (ACS): cancer.org National Cancer [place] (NCI): cancer.gov Contact a health care provider [...] to deal with the stress of having bladdercancer. This information is not intended to replace advice given to you by your health care provider. Make sure you discuss any questions you have with your health care provider. Document Revised: 04/29/2022 Document Reviewed: 04/29/2022 Elsevier Patient Education 2023 Compact Particle Acceleration. Follow Up Care 09/23/2024 16:12:37 With:[facility] [place] Address: [address] [place] [address] Business (1) When: Unknown Comments:our clinic scheduler will be contacting you for follow-up [facility] [place] 06-16-2025 NotePatient Education Oncology Bladder Cancer Bladder cancer is [...] Follow these instructions at home: ??? Take dyeh-syo-ycrqelw and prescription medicines only as told by your health care provider. ??? If you were prescribed an antibiotic medicine, take it as told by your health care provider. Donot stop using the antibiotic even if you [...] Your team may be able to recommend waysto get relief. ??? Keep all follow-up visits. This is important. Where to find more information ??? [place] [employer] (ACS): cancer.org ??? National Cancer [place] (NCI): cancer.gov Contact a health care provider [...] physical exam, lab tests, imaging tests, and yoursymptoms. ??? Your health care provider may recommend one or more types of treatment based on the stage of your cancer. ??? Consider joining a support group. This may help you learn to deal with the stress of having bladder cancer. This information is n (more content not included)...[facility] 11-08-2024 Hospital Discharge instructions Patient Education [...] cells. Follow these instructions at home: Take ibjb-hhz-gdmocbj and prescription medicines only as told by your health care provider. If you were prescribed an antibiotic medicine, take it as told by your health care provider. Do notstop using the antibiotic even if you start to feel better. Eat a healthy diet. Some treatments might affect your appetite. Do not use any products that contain nicotine or tobacco. These products include cigarettes, chewing tobacco, and vaping devices, such as e-cigarettes. If you need help quitting, ask your health careprovider. Consider joining a support group. This may help you learn to deal with the stress of having bladdercancer. Tell your cancer care team if you develop side effects. Your team may be able to recommend ways to get relief. Keep all follow-up visits. This is important. Where to find more information [place] [employer] (ACS): cancer.org National Cancer [place] (NCI): cancer.gov Contact a health care provider [...] to deal with the stress of having bladdercancer. This information is not intended to replace advice given to you by your health care provider. Make sure you discuss any questions you have with your health care provider. Document Revised: 04/29/2022 Document Reviewed: 04/29/2022 Apartment List Patient Education 2023 Compact Particle Acceleration. Follow Up Care 09/23/2024 16:10:34 With:NGHIA GRAYSON PA-C, URL Address: [address] [place] [address] When:Within 1 Week(s) [facility] 06-09-2025 NotePatient Education Oncology Bladder Cancer Bladder cancer is [...] Follow these instructions at home: ??? Take gbsh-fyy-hcolkbu and prescription medicines only as told by your health care provider. ??? If you were prescribed an antibiotic medicine, take it as told by your health care provider. Donot stop using the antibiotic even if you [...] Your team may be able to recommend waysto get relief. ??? Keep all follow-up visits. This is important. Where to find more information ??? [place] [employer] (ACS): cancer.org ??? National Cancer [place] (NCI): cancer.gov Contact a health care provider [...] physical exam, lab tests, imaging tests, and yoursymptoms. ??? Your health care provider may recommend one or more types of treatment based on the stage of your cancer. ??? Consider joining a support group. This may help you learn to deal with the stress of having bladder cancer. This information is n (more content not included)...[facility] 11-01-2024 Hospital Discharge instructions Patient Education [...] cells. Follow these instructions at home: Take rmac-ghw-ryuwdty and prescription medicines only as told by your health care provider. If you were prescribed an antibiotic medicine, take it as told by your health care provider. Do notstop using the antibiotic even if you start to feel better. Eat a healthy diet. Some treatments might affect your appetite. Do not use any products that contain nicotine or tobacco. These products include cigarettes, chewing tobacco, and vaping devices, such as e-cigarettes. If you need help quitting, ask your health careprovider. Consider joining a support group. This may help you learn to deal with the stress of having bladdercancer. Tell your cancer care team if you develop side effects. Your team may be able to recommend ways to get relief. Keep all follow-up visits. This is important. Where to find more information [place] [employer] (ACS): cancer.org National Cancer [place] (NCI): cancer.gov Contact a health care provider [...] to deal with the stress of having bladdercancer. This information is not intended to replace advice given to you by your health care provider. Make sure you discuss any questions you have with your health care provider. Document Revised: 04/29/2022 Document Reviewed: 04/29/2022 Apartment List Patient Education 2023 Compact Particle Acceleration. Follow Up Care 09/23/2024 16:08:43 With:NGHIA GRAYSON PA-C, ERICAL Address: [place] [address] When:Within 1 Week(s) [facility] 06-02-2025 NotePatient Education Oncology Bladder Cancer Bladder cancer is [...] Follow these instructions at home: ??? Take srfq-dde-bvhhroq and prescription medicines only as told by your health care provider. ??? If you were prescribed an antibiotic medicine, take it as told by your health care provider. Donot stop using the antibiotic even if you [...] Your team may be able to recommend waysto get relief. ??? Keep all follow-up visits. This is important. Where to find more information ??? [place] [employer] (ACS): cancer.org ??? National Cancer [place] (NCI): cancer.gov Contact a health care provider [...] physical exam, lab tests, imaging tests, and yoursymptoms. ??? Your health care provider may recommend one or more types of treatment based on the stage of your cancer. ??? Consider joining a support group. This may help you learn to deal with the stress of having bladder cancer. This information is n (more content not included)...[facility] 10-28-2024 History of Present illness Narrative* Layla Rodriguez NP - 10/28/2024 2:40 PM EDT Images from the original note were not included. Chief Complaint Patient presents with Postherpetic neuralgia Subjective Jam Ramirez is a 84 y.o. male. History of Present Illness The patient presents today for follow-up. He is accompanied by his , Carissa. He admits to not taking his gabapentin as often recently. He is taking gabapentin 100 mg daily as needed. He states he experienced unfavorable side effects when on a higher dose (agitation noticed bywife, mild balance difficulty, fatigue). He is doing better since the dose reduction. He denies any falls since the prior neurology appointment. The patient continues to have intermittent pain in the left forehead (V1 distribution). This occursmore often in the evenings. He describes it as sharp. Severity is 6/10 on average. He states he canexperience itching in the same location. He denies [...] to person, place, and time. Recent and remotememory are intact. Speech is clear and fluent [...] wrist extensors , wrist flexor , and operations leader strength 5/5. LUE strength deltoid , biceps , triceps , wrist extensors , wrist flexor , and operations leader strength 5/5. RLE strength iliopsoas, quadriceps, tibialis [...] reflex 0. LLE knee reflex 0. Coordination: Vmrtyb-tg-vknm testing normal. Rapid alternating movements are normal. [...] are tolerable on the current regimen. He doesnot wish to make any changes to medications [...] in detail. All questions answered. The patient verbalizesunderstanding and is agreeable to the plan. Discussion in layman's terms. Follow up in the office within 3 to 4 months; sooner if needed for new or worsening symptoms. Layla Rodriguez NP [facility] documented in this encounterSullivan County Memorial [id number] Hospital Discharge instructions Patient Education 10/26/2024 12:10:45 [...] cells. Follow these instructions at home: Take zxef-ogj-ninhiuu and prescription medicines only as told by your health care provider. If you were prescribed an antibiotic medicine, take it as told by your health care provider. Do notstop using the antibiotic even if you start to feel better. Eat a healthy diet. Some treatments might affect your appetite. Do not use any products that contain nicotine or tobacco. These products include cigarettes, chewing tobacco, and vaping devices, such as e-cigarettes. If you need help quitting, ask your health careprovider. Consider joining a support group. This may help you learn to deal with the stress of having bladdercancer. Tell your cancer care team if you develop side effects. Your team may be able to recommend ways to get relief. Keep all follow-up visits. This is important. Where to find more information [place] [employer] (ACS): cancer.org National Cancer [place] (NCI): cancer.gov Contact a health care provider [...] to deal with the stress of having bladdercancer. This information is not intended to replace advice given to you by your health care provider. Make sure you discuss any questions you have with your health care provider. Document Revised: 04/29/2022 Document Reviewed: 04/29/2022 Apartment List Patient Education 2023 Compact Particle Acceleration. Follow Up Care 10/18/2024 14:00:53 With:NGHIA GRAYSON PA-C, URL Address: [address], [place] [address] [place] [address] When:Within 1 Week(s) [facility] 05-27-2025 NotePatient Education Oncology Bladder Cancer Bladder cancer is [...] Follow these instructions at home: ??? Take hmhh-hes-pwrlwpf and prescription medicines only as told by your health care provider. ??? If you were prescribed an antibiotic medicine, take it as told by your health care provider. Donot stop using the antibiotic even if you [...] Your team may be able to recommend waysto get relief. ??? Keep all follow-up visits. This is important. Where to find more information ??? [place] [employer] (ACS): cancer.org ??? National Cancer [place] (NCI): cancer.gov Contact a health care provider [...] physical exam, lab tests, imaging tests, and yoursymptoms. ??? Your health care provider may recommend one or more types of treatment based on the stage of your cancer. ??? Consider joining a support group. This may help you learn to deal with the stress of having bladder cancer. This information is n (more content not included)...[facility] 10-18-2024 Hospital Discharge instructions Patient Education [...] cells. Follow these instructions at home: Take pnnd-nqj-kdtizqc and prescription medicines only as told by your health care provider. If you were prescribed an antibiotic medicine, take it as told by your health care provider. Do notstop using the antibiotic even if you start to feel better. Eat a healthy diet. Some treatments might affect your appetite. Do not use any products that contain nicotine or tobacco. These products include cigarettes, chewing tobacco, and vaping devices, such as e-cigarettes. If you need help quitting, ask your health careprovider. Consider joining a support group. This may help you learn to deal with the stress of having bladdercancer. Tell your cancer care team if you develop side effects. Your team may be able to recommend ways to get relief. Keep all follow-up visits. This is important. Where to find more information [place] [employer] (ACS): cancer.org National Cancer [place] (NCI): cancer.gov Contact a health care provider [...] to deal with the stress of having bladdercancer. This information is not intended to replace advice given to you by your health care provider. Make sure you discuss any questions you have with your health care provider. Document Revised: 04/29/2022 Document Reviewed: 04/29/2022 Apartment List Patient Education 2023 Compact Particle Acceleration. Follow Up Care 09/23/2024 16:06:47 With:RADHA WEATHERS, NGHIA Baires, URL Address: [facility] [address] [facility] [place] [address] When:Within 1 Week(s) [facility] 05-19-2025 NotePatient Education Oncology Bladder Cancer Bladder cancer is [...] Follow these instructions at home: ??? Take dylu-diu-frttejb and prescription medicines only as told by your health care provider. ??? If you were prescribed an antibiotic medicine, take it as told by your health care provider. Donot stop using the antibiotic even if you [...] Your team may be able to recommend waysto get relief. ??? Keep all follow-up visits. This is important. Where to find more information ??? [place] [employer] (ACS): cancer.org ??? National Cancer [place] (NCI): cancer.gov Contact a health care provider [...] physical exam, lab tests, imaging tests, and yoursymptoms. ??? Your health care provider may recommend one or more types of treatment based on the stage of your cancer. ??? Consider joining a support group. This may help you learn to deal with the stress of having bladder cancer. This information is n (more content not included)...[facility] 10-11-2024 Hospital Discharge instructions Patient Education [...] cells. Follow these instructions at home: Take lwwz-jys-dsmoazv and prescription medicines only as told by your health care provider. If you were prescribed an antibiotic medicine, take it as told by your health care provider. Do notstop using the antibiotic even if you start to feel better. Eat a healthy diet. Some treatments might affect your appetite. Do not use any products that contain nicotine or tobacco. These products include cigarettes, chewing tobacco, and vaping devices, such as e-cigarettes. If you need help quitting, ask your health careprovider. Consider joining a support group. This may help you learn to deal with the stress of having bladdercancer. Tell your cancer care team if you develop side effects. Your team may be able to recommend ways to get relief. Keep all follow-up visits. This is important. Where to find more information [place] [employer] (ACS): cancer.org National Cancer [place] (NCI): cancer.gov Contact a health care provider [...] to deal with the stress of having bladdercancer. This information is not intended to replace advice given to you by your health care provider. Make sure you discuss any questions you have with your health care provider. Document Revised: 04/29/2022 Document Reviewed: 04/29/2022 Apartment List Patient Education 2023 Compact Particle Acceleration. Follow Up Care 09/23/2024 16:04:51 With:RADHA WEATHERS, NGHIA Baires, URL Address: [address] [place] [address] When:Within 1 Week(s) [facility] 05-12-2025 NotePatient Education Oncology Bladder Cancer Bladder cancer is [...] Follow these instructions at home: ??? Take frna-xkp-ugqubru and prescription medicines only as told by your health care provider. ??? If you were prescribed an antibiotic medicine, take it as told by your health care provider. Donot stop using the antibiotic even if you [...] Your team may be able to recommend waysto get relief. ??? Keep all follow-up visits. This is important. Where to find more information ??? [place] [employer] (ACS): cancer.org ??? National Cancer [place] (NCI): cancer.gov Contact a health care provider [...] physical exam, lab tests, imaging tests, and yoursymptoms. ??? Your health care provider may recommend one or more types of treatment based on the stage of your cancer. ??? Consider joining a support group. This may help you learn to deal with the stress of having bladder cancer. This information is n (more content not included)...[facility] 09-28-[address] [facility] Cardiology Clinic Note Chief Complaint: Patient here [...] history of COPD (chronic obstructive pulmonary disease) ([facility]), Diabetes mellitus ([facility]), Hematuria, and Hyperlipidemia. Surgical History He [...] Moderate left ventricular hypert (more content not included)...[facility]04-07-2025 NotePatient Education Oncology Chemotherapy Chemotherapy is a cancer [...] time. Others are given for months, years, orfor life. What can I expect after treatment? [...] not available, use an alcohol based hand tax advisor that contains at least 60% alcohol. Have [...] stay active in your (more content not included)...[facility]03-24-2025 [facility] Note Chief Complaint: New patient. [...] in 6 months or sooner should problems ariseOhio State [facility] System03-12-2025 NotePatient Education Oncology Transurethral Resection of Bladder Tumor, [...] these instructions at home: Medicines ??? Take lite-nhe-hbdreer and prescription medicines only as told by your health care provider. ??? If you were prescribed an antibiotic medicine, take it as told by your health care provider. Donot stop taking the antibiotic even if you start to feel better. ??? Ask your health care provider if the medicine prescribed to you: ? Requires you to avoid driving or using machinery. ? Can cause constipation. You may need to take these actions to prevent or treat constipation: ? Drink enough fluid to keep your urine pale yellow. ? Take yjjw-gfc-uhillki or prescription medicines. ? Eat foods that [...] or the limit that you are told, untilyour health care provider says that it is [...] of blood or small blood clots in yoururine, soreness or mild pain from your catheter, and pain in your lower abdomen. ??? Take usdd-svx-pwccpyx and prescription medicines only as told by your health care provider. ??? Rest as told by your health care provider. Follow your health care provider's instructions about returning to normal activities. Ask what activities are safe for you. ??? If you have a catheter, follow instructions from your health care provider about caring for your catheter and your drainage bag. (more content not included)...[facility]02-26-2025 Instructions* Patient Instructions* Layla Rodriguez NP - 07/28/2024 3:00 PM EST - Continue gabapentin as directed documented in this encounterSullivan County Memorial [id number] History of Present illness Narrative* Jorge Luis Malik MD - 07/07/2024 2:15 PM ESTAssociated Problem(s): Type 2 diabetes mellitus with hyperglycemia (CMS/HCC) Recent A1C 7.5. Stick to ADA diet and limit carbs. * Jorge Luis Malik MD - 07/07/2024 2:15 PM ESTAssociated Problem(s): Medicare annual wellness visit, subsequent Due for labs. Discussed proper diet and regular aerobic exercise. Need aerobic exercise 5-6 days a week for 30 minutes at a time. Smaller portions and limit total calories. Tetanus every 10 years. Advised not to smoke. * Jorge Luis Malik MD - 07/07/2024 2:15 PM ESTAssociated Problem(s): Dyslipidemia (CMS/[facility]) Prior statin intolerance. * Jorge Luis Malik MD - 07/07/2024 2:15 PM ESTAssociated Problem(s): COPD (chronic obstructive pulmonary disease) (CMS/[facility]) Symptoms stable and use albuterol PRN. * Jorge Luis Malik MD - 07/07/2024 1:30 PM EST Images from the original note were not [...] This Visit COPD (chronic obstructive pulmonary disease) ([facility]) Symptoms stable and use albuterol PRN. Dyslipidemia (CMS/[facility]) Prior statin intolerance. Type 2 diabetes mellitus with hyperglycemia (CMS/HCC) [...] to smoke. Statin myopathy documented in this encounterSullivan County Memorial [id number] Hospital Discharge instructions Patient Education 07/05/2024 10:11:20 [...] including vitamins, herbs, eye drops, creams, and icdi-sbg-szfqgms medicines. Any problems you or family members [...] provider tells you to take them. Taking vfvi-yns-ovxmmqr medicines, vitamins, herbs, and supplements. Tests You [...] Follow these instructions at home: Medicines Take pbyc-omz-hncgppc and prescription medicines only as told by your health care provider. If you were prescribed an antibiotic medicine, take it as told by your health care provider. Do notstop taking the antibiotic even if you start [...] blood in your urine increases, call your healthcare provider. Follow instructions from your health care provider about eating or drinking restrictions. If a tissue sample was removed for testing (biopsy) during your procedure, it is up to you to get your test results. Ask your health care provider, or the department that is doing the test, when yourresults will be ready. Drink enough fluid to [...] blood in your urine increases, call your healthcare provider. If you were prescribed an antibiotic medicine, take it as told by your health care provider. Do notstop taking the antibiotic even if you start to feel better. This information is not intended to replace advice given to you by your health care provider. Make sure you discuss any questions you have with your health care provider. Document Revised: 01/30/2022 Document Reviewed: 12/29/2020 Apartment List Patient Education 2023 [employer]. 07/05/2024 09:52:06 Hematuria, Adult Hematuria, Adult Hematuria is blood in the urine. Blood may be visible in the urine, or it may be identified with a test. This condition can be caused by infections of the bladder, urethra, kidney, or prostate. Otherpossible causes include: Kidney stones. Cancer of the [...] blood in your urine, even if it ispainless or the blood stops without treatment. Blood in the urine, when it happens and then stops and then happens again, can be a symptom of a very serious condition, including cancer. There is no pain in the initial stages of many urinary cancers. Follow these instructions at home: Medicines Take tikq-vnk-izavhkj and prescription medicines only as told by your health care provider. If you were prescribed an antibiotic medicine, take it as told by your health care provider. Do notstop taking the antibiotic even if you start to feel better. Eating and drinking Drink enough fluid to keep your urine pale yellow. It is recommended that you drink 3 4 quarts (2.83.8 L) a day. If you have been diagnosed with an infection, drinking cranberry juice in addition tolarge amounts of water is recommended. Avoid caffeine, [...] about any blood in your urine, even ifit is painless or the blood stops without treatment. Take tkts-ucv-nwpdyib and prescription medicines only as told by your health care provider. Drink enough fluid to keep your urine pale yellow. This information is not intended to replace advice given to you by your health care provider. Make sure you discuss any questions you have with your health care provider. Document Revised: 01/17/2021 Document Reviewed: 01/17/2021 Apartment List Patient Education 2023 [employer]. Follow Up Care 06/18/2024 13:46:52 With:LIBBY QUINTANA, Lalo Mclain, URL Address: [facility] [address], [place] [address]- [phone] When: Unknown [facility] Chris 02-03-2025 NoteUrology Office/Clinic Note Chief Complaint referral gross hematuria HPI Staff 84yr old male pt referred by Jorge Luis Malik MD for gross hematuria. Pt saw blood in his urine about a couple weeks ago. Only saw blood for 1 day. But in the past few months he says this has happened 3times. When these episodes happen, he says there [...] hematuria. Discussed hematuria workup includes upper urinary tractimaging, evaluation of the urinary cells with urine cytology and possible a FISH test, and a cystoscopy to rule out lower urinary tract pathology. Pt aware that a distinct etiology of the hematuria may not be clear upon conclusion of the workup. The rationale for this workup has been discussed, andall questions have been answered. -Urine sample to [...] antigen) (Z12.5: Encounter for screening for malignant neoplasmof prostate) S/p TRUS/bx 03/11/06. Last PSA 02/12/22 - 0.25. Monitored by PCP. Follow-up With When Contact Information LIBBY QUINTANA, Lalo Mclain, URL [facility] [address], [place] [address] [phone] Additional Instructions: sched cysto and CTU Patient [...] Oral, TID Allergies codeine (more content not included)...[facility] HospitalComment on above:Result Comment: Electronically Signed By: Lalo SOUZA MD\.br\Date and Time Signed: 07/05/24 10:13 EST\.br\Electronically Co-Signed By: Amy David\.br\Date and Time Co-Signed: 07/05/24 10:12 [id number] NotePatient Education Urology Cystoscopy Cystoscopy is a procedure [...] including vitamins, herbs, eye drops, creams, and ukvg-mmj-mmzueww medicines. ??? Any problems you or family [...] tells you to take them. ??? Taking aiht-kqu-uiqfinj medicines, vitamins, herbs, and supplements. Tests You [...] cystoscope to fill your bladder. The fluid willstretch your bladder so that your health care [...] these instructions at home: Medicines ??? Take kvai-ilv-iesjwuh and prescription medicines only as told by your health care provider. ??? If you were prescribed an antibiotic medicine, take it as told by your health care provider. Donot stop taking the antibiotic even if you [...] testing (biopsy) during your (more content not included)...[facility]01-22-[facility] History of Present illness Narrative* Roberto Robledo, - 06/23/2024 1:30 PM EST Images from the original note were not included. Chief complaint: Post herpetic neuralgia Subjective Jam Ramirez Jr., 84 y.o., male Patient presents today fro a neurologic consult at the request of Dr. Hassan for postherpetic nervous system involvement. Patient is accompanied by his , Carissa. Patient states he has shingles inhis head and behind his left eye. He states he has had this for over one year. Patient is seeing his PCP for this. He is not currently on any anti viral medication and is unsure if he has been at allfor this. He reports itching and intermittent pain. [...] headaches. Past Medical History: Diagnosis Date Asthma ([facility]) Blood pressure elevated without history of HTN Chronic pain of both shoulders COPD, mild ([facility]) Dyslipidemia ([facility]) Former smoker HARISH (generalized anxiety disorder) ([facility]) Gastroesophageal reflux disease History of hernia repair Hypothyroidism, adult ([facility]) Insomnia, persistent Post herpetic neuralgia ([facility]) Seasonal allergic rhinitis due to pollen Type 2 diabetes mellitus with hyperglycemia, without long-term current use of insulin ([facility]) Past Surgical History: Procedure Laterality Date [...] , wrist extensors , wrist flexor , operations leader strength 5/5. LUE Strength deltoid , biceps , triceps , wrist extensors , wrist flexor , operations leader strength 5/5. RLE Strength illopsoas, quadriceps, tibialis [...] reflex 0 . Gamez's sign negative. Coordination: Xagrpn-fw-mduf testing and rapid alternating movements are normal [...] results, and treatment options documented in this encounterSullivan County Memorial [id number] History of Present illness Narrative* Jorge Luis Malik MD - 06/14/2024 1:38 PM ESTAssociated Problem(s): Gross hematuria Reports blood in urine off and on of unclear etiology. Check urine and refer to urology for possible cystoscopy. * Jorge Luis Malik MD - 06/14/2024 1:15 PM EST Images from the original note were not [...] Ambulatory referral to Urology documented in this encounterSullivan County Memorial [id number] History of Present illness Narrative* Jorge Luis Malik MD - 05/17/2024 11:08 AM ESTAssociated Problem(s): Type 2 diabetes mellitus with hyperglycemia (CMS/HCC) Reports BS stable and due for A1C. Stick to ADA diet and limit carbs. * Jorge Luis Malik MD - 05/17/2024 11:08 AM ESTAssociated Problem(s): COPD exacerbation (CMS/HCC) Worsening SOB and treat with prednisone and levaquin. Use albuterol every 4 hours x 48 then PRN. * Jorge Luis Malik MD - 05/17/2024 10:15 AM EST Images from the original note were not included. Subjective Patient ID: Jam Ramirez Jr. is a 84 y.o. male who presents for Shortness of Breath. C/o worsening SOB over the past few weeks. Increased SOB with minimal exertion. Hard to stay activearound the house due to SOB. Frequent cough [...] measurement Relevant Orders PSA documented in this encounterSullivan County Memorial HospitalEvaluation + Plan note Future Appointments Appointment Date:08/11/2024 07:30:00 AM Scheduled Provider:Lalo SOUZA MD Location:[facility] Appointment Type:URO Procedure 15 min Diagnostic Tests Pending * Creatinine 07/05/24 [facility] evaluation + Plan note Future Appointments Appointment Date:08/11/2024 07:30:00 AM Scheduled Provider:Lalo SOUZA MD Location:[facility] Appointment Type:URO Procedure 15 min Diagnostic Tests Pending * Urine Cytology ([facility]) 07/05/24 [facility] Evaluation + Plan note Future Appointments Appointment Date:10/18/2024 01:40:00 PM Scheduled Provider:NGHIA GRAYSON PA-C Location:[facility] Appointment Type:URO Office Visit Appointment Date:11/01/2024 01:00:00 PM Scheduled Provider:NGH[facility]-C [facility] Office Visit Appointment Date:11/08/2024 01:00:00 PM Scheduled Provider:NGHIA GRAYSON PA-C [facility] App[facility] Type:URO Office Visit Appointment Date:11/15/2024 01:00:00 PM Scheduled Provider:NGHIA GRAYSON PA-C [facility] App[facility] Type:URO Office Visit Appointment Date:11/22/2024 01:00:00 PM Scheduled Provider:NGHIA GRAYSON PA-C [facility] App[facility] Type:URO Office Visit [facility] evaluation + Plan note Future Appointments Appointment Date:10/26/2024 11:20:00 AM Scheduled Provider:NGHIA GRAYSON PA-C [facility] Type:URO Office Visit Appointment Date:11/01/2024 01:00:00 PM Scheduled Provider:NGHIA GRAYSON PA-C [facility] App[facility] Type:URO Office Visit Appointment Date:11/08/2024 01:00:00 PM Scheduled Provider:NGHIA GRAYSON PA-C Location:[facility] Appointment Type:URO Office Visit Appointment Date:11/15/2024 01:00:00 PM Scheduled Provider:NGHIA GRAYSON PA-C Location:[facility] Appointment Type:URO Office Visit [facility] evaluation + Plan note Future Appointments Appointment Date:11/01/2024 01:00:00 PM Scheduled Provider:NGHIA GRAYSON PA-C [facility] App[facility] Type:URO Office Visit Appointment Date:11/08/2024 01:00:00 PM Scheduled Provider:NGHIA GRAYSON PA-C [facility] App[facility] Type:URO Office Visit Appointment Date:11/15/2024 01:00:00 PM Scheduled Provider:NGHIA GRAYSON PA-C Location:[facility] Appointment Type:URO Office Visit [facility] evaluation + Plan note Future Appointments Appointment Date:11/08/2024 01:00:00 PM Scheduled Provider:NGHIA GRAYSON PA-C Location:[facility] Appointment Type:URO Office Visit Appointment Date:11/15/2024 01:00:00 PM Scheduled Provider:NGHIA GRAYSON PA-C Location:[facility] Appointment Type:URO Office Visit [facility] evaluation + Plan note Future Appointments Appointment Date:11/15/2024 01:00:00 PM Scheduled Provider:NGHIA GRAYSON PA-C Location:[facility] Appointment Type:URO Office Visit [facility] evaluation + Plan note Future Appointments Appointment Date:02/09/2025 10:30:00 AM Scheduled Provider:Shannan Jose [facility]-C [facility] Type[facility] Office Visit Appointment Date:02/16/2025 10:30:00 AM Scheduled Provider:Shannan Jose PA-C Location:[facility] Appointment Type:URO Office Visit [facility] evaluation + Plan note Future Appointments Appointment Date:02/16/2025 10:30:00 AM Scheduled Provider:Shannan Jose PA-C Location:[facility] Appointment Type:URO Office Visit Appointment Date:03/21/2025 08:30:00 AM Scheduled Provider:Lalo SOUZA MD Location:[facility] Appointment Type:URO Procedure 15 min [facility] evaluation + Plan note Future Appointments Appointment Date:03/21/2025 08:30:00 AM Scheduled Provider:Lalo SOUZA MD Location:[facility] Appointment Type:URO Procedure 15 min [facility] evaluation + Plan note Future Appointments Appointment Date:04/21/2025 09:30:00 AM Scheduled Provider: Location:[facility] Appointment Type:URO Nurse Visit Appointment Date:05/02/2025 10:30:00 AM Scheduled Provider:Lalo SOUZA MD Location:[facility] Appointment Type:URO Office Visit [facility] evaluation note* Diagnosis Type 2 diabetes mellitus with hyperglycemia, without long-term current use of insulin ([facility])- Primary Post herpetic neuralgia ([facility]) 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 Generalized anxiety disorder ([facility]) Generalized anxiety disorder Chronic obstructive pulmonary disease, unspecified COPD type ([facility]) Gastroesophageal reflux disease without esophagitis Esophageal reflux Lumbar spondylosis- Primary Lumbosacral spondylosis without myelopathy Post herpetic neuralgia ([facility]) 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 Type 2 diabetes mellitus with hyperglycemia, without long-term current use of insulin ([facility])- Primary Lumbar spondylosis Lumbosacral spondylosis without myelopathy Chronic obstructive pulmonary disease, unspecified COPD type ([facility]) Generalized anxiety disorder ([facility]) Generalized anxiety disorder Post herpetic neuralgia ([facility]/HCC) 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 Gastroesophageal reflux disease without esophagitis Esophageal reflux COPD exacerbation ([facility])- Primary Obstructive chronic bronchitis with exacerbation Type 2 diabetes mellitus with hyperglycemia, without long-term current use of insulin ([facility]) Dyslipidemia ([facility]) Other and unspecified hyperlipidemia Adult hypothyroidism ([facility]) Unspecified hypothyroidism Encounter for screening prostate specific antigen (PSA) measurement Encounter for long-term (current) use of medications Encounter for long-term (current) use of other medications documented in this encounter [facility] HealthcareEvaluation note* Diagnosis Type 2 diabetes mellitus with hyperglycemia, without long-term current use of insulin ([facility])- Primary Post herpetic neuralgia ([facility]) 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 Generalized anxiety disorder ([facility]) Generalized anxiety disorder Chronic obstructive pulmonary disease, unspecified COPD type ([facility]) Gastroesophageal reflux disease without esophagitis Esophageal reflux Lumbar spondylosis- Primary Lumbosacral spondylosis without myelopathy Post herpetic neuralgia ([facility]) 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 Type 2 diabetes mellitus with hyperglycemia, without long-term current use of insulin ([facility])- Primary Lumbar spondylosis Lumbosacral spondylosis without myelopathy Chronic obstructive pulmonary disease, unspecified COPD type ([facility]) Generalized anxiety disorder ([facility]) Generalized anxiety disorder Post herpetic neuralgia ([facility]) 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 Gastroesophageal reflux disease without esophagitis Esophageal reflux COPD exacerbation ([facility])- Primary Obstructive chronic bronchitis with exacerbation Type 2 diabetes mellitus with hyperglycemia, without long-term current use of insulin ([facility]) Dyslipidemia ([facility]) Other and unspecified hyperlipidemia Adult hypothyroidism ([facility]) Unspecified hypothyroidism Encounter for screening prostate specific antigen (PSA) measurement Encounter for long-term (current) use of medications Encounter for long-term (current) use of other medications Gross hematuria- Primary documented in this encounter [facility] HealthcareEvaluation note* Diagnosis Type 2 diabetes mellitus with hyperglycemia, without long-term current use of insulin ([facility])- Primary Post herpetic neuralgia ([facility]) 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 Generalized anxiety disorder ([facility]) Generalized anxiety disorder Chronic obstructive pulmonary disease, unspecified COPD type ([facility]) Gastroesophageal reflux disease without esophagitis Esophageal reflux Lumbar spondylosis- Primary Lumbosacral spondylosis without myelopathy Post herpetic neuralgia (CMS/HCC) 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 Type 2 diabetes mellitus with hyperglycemia, without long-term current use of insulin ([facility])- Primary Lumbar spondylosis Lumbosacral spondylosis without myelopathy Chronic obstructive pulmonary disease, unspecified COPD type (CMS/HCC) Generalized anxiety disorder (CMS/HCC) Generalized anxiety disorder Post herpetic neuralgia (CMS/HCC) 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 Gastroesophageal reflux disease without esophagitis Esophageal reflux COPD exacerbation ([facility])- Primary Obstructive chronic bronchitis with exacerbation Type 2 diabetes mellitus with hyperglycemia, without long-term current use of insulin ([facility]) Dyslipidemia ([facility]) Other and unspecified hyperlipidemia Adult hypothyroidism ([facility]) Unspecified hypothyroidism Encounter for screening prostate specific antigen (PSA) measurement Encounter for long-term (current) use of medications Encounter for long-term (current) use of other medications Gross hematuria- Primary Post herpetic neuralgia ([facility]/HCC)- Primary 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 documented in this encounter [facility] HealthcareEvaluation note* Diagnosis Type 2 diabetes mellitus with hyperglycemia, without long-term current use of insulin ([facility])- Primary Post herpetic neuralgia ([facility]) 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 Generalized anxiety disorder ([facility]/HCC) Generalized anxiety disorder Chronic obstructive pulmonary disease, unspecified COPD type ([facility]) Gastroesophageal reflux disease without esophagitis Esophageal reflux Lumbar spondylosis- Primary Lumbosacral spondylosis without myelopathy Post herpetic neuralgia ([facility]/HCC) 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 Type 2 diabetes mellitus with hyperglycemia, without long-term current use of insulin ([facility])- Primary Lumbar spondylosis Lumbosacral spondylosis without myelopathy Chronic obstructive pulmonary disease, unspecified COPD type ([facility]HCC) Generalized anxiety disorder ([facility]) Generalized anxiety disorder Post herpetic neuralgia ([facility] [facility]) 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 Gastroesophageal reflux disease without esophagitis Esophageal reflux COPD exacerbation ([facility])- Primary Obstructive chronic bronchitis with exacerbation Type 2 diabetes mellitus with hyperglycemia, without long-term current use of insulin ([facility]) Dyslipidemia ([facility]) Other and unspecified hyperlipidemia Adult hypothyroidism ([facility]) Unspecified hypothyroidism Encounter for screening prostate specific antigen (PSA) measurement Encounter for long-term (current) use of medications Encounter for long-term (current) use of other medications Gross hematuria- Primary Medicare annual wellness visit, subsequent- Primary Type 2 diabetes mellitus with hyperglycemia, without long-term current use of insulin ([facility]/HCC) Dyslipidemia (CMS/HCC) Other and unspecified hyperlipidemia Chronic obstructive pulmonary disease, unspecified COPD type (CMS/HCC) Statin myopathy Toxic myopathy Type 2 diabetes mellitus with other specified complication (CMS/HCC) documented in this encounter [facility] HealthcareEvaluation note* Diagnosis Type 2 diabetes mellitus with hyperglycemia, without long-term current use of insulin (CMS/HCC)- Primary Post herpetic neuralgia (CMS/HCC) 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 Generalized anxiety disorder ([facility]/HCC) Generalized anxiety disorder Chronic obstructive pulmonary disease, unspecified COPD type (CMS/HCC) Gastroesophageal reflux disease without esophagitis Esophageal reflux Lumbar spondylosis- Primary Lumbosacral spondylosis without myelopathy Post herpetic neuralgia (CMS/HCC) 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 Type 2 diabetes mellitus with hyperglycemia, without long-term current use of insulin ([facility]/HCC)- Primary Lumbar spondylosis Lumbosacral spondylosis without myelopathy Chronic obstructive pulmonary disease, unspecified COPD type (CMS/HCC) Generalized anxiety disorder (CMS/HCC) Generalized anxiety disorder Post herpetic neuralgia (CMS/HCC) 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 Gastroesophageal reflux disease without esophagitis Esophageal reflux COPD exacerbation ([facility]/HCC)- Primary Obstructive chronic bronchitis with exacerbation Type 2 diabetes mellitus with hyperglycemia, without long-term current use of insulin ([facility]/HCC) Dyslipidemia (CMS/HCC) Other and unspecified hyperlipidemia Adult hypothyroidism ([facility]/HCC) Unspecified hypothyroidism Encounter for screening prostate specific antigen (PSA) measurement Encounter for long-term (current) use of medications Encounter for long-term (current) use of other medications Gross hematuria- Primary Medicare annual wellness visit, subsequent- Primary Type 2 diabetes mellitus with hyperglycemia, without long-term current use of insulin ([facility]) Dyslipidemia (CMS/HCC) Other and unspecified hyperlipidemia Chronic obstructive pulmonary disease, unspecified COPD type (CMS/HCC) Statin myopathy Toxic myopathy Type 2 diabetes mellitus with other specified complication (CMS/HCC) Post herpetic neuralgia ([facility]/HCC) 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 documented in this encounter [facility] HealthcareEvaluation noteNo assessment information availableR[facility]ide [facility] Work Phone: Evaluation note* Diagnosis Type 2 diabetes mellitus with hyperglycemia, without long-term current use of insulin ([facility])- Primary Post herpetic neuralgia ([facility]/HCC) 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 Generalized anxiety disorder ([facility]/HCC) Generalized anxiety disorder Chronic obstructive pulmonary disease, unspecified COPD type ([facility]/HCC) Gastroesophageal reflux disease without esophagitis Esophageal reflux Lumbar spondylosis- Primary Lumbosacral spondylosis without myelopathy Post herpetic neuralgia ([facility]/HCC) 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 Type 2 diabetes mellitus with hyperglycemia, without long-term current use of insulin ([facility]/HCC)- Primary Lumbar spondylosis Lumbosacral spondylosis without myelopathy Chronic obstructive pulmonary disease, unspecified COPD type ([facility]) Generalized anxiety disorder ([facility]) Generalized anxiety disorder Post herpetic neuralgia ([facility]) 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 Gastroesophageal reflux disease without esophagitis Esophageal reflux COPD exacerbation ([facility])- Primary Obstructive chronic bronchitis with exacerbation Type 2 diabetes mellitus with hyperglycemia, without long-term current use of insulin ([facility]) Dyslipidemia ([facility]) Other and unspecified hyperlipidemia Adult hypothyroidism ([facility]) Unspecified hypothyroidism Encounter for screening prostate specific antigen (PSA) measurement Encounter for long-term (current) use of medications Encounter for long-term (current) use of other medications Gross hematuria- Primary Medicare annual wellness visit, subsequent- Primary Type 2 diabetes mellitus with hyperglycemia, without long-term current use of insulin ([facility]) Dyslipidemia ([facility]) Other and unspecified hyperlipidemia Chronic obstructive pulmonary disease, unspecified COPD type ([facility]) Statin myopathy Toxic myopathy Type 2 diabetes mellitus with other specified complication Post herpetic neuralgia ([facility])- Primary 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 documented in this encounter [facility] HealthcareEvaluation note* Diagnosis Type 2 diabetes mellitus with hyperglycemia, without long-term current use of insulin ([facility])- Primary Post herpetic neuralgia 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 Generalized anxiety disorder Generalized anxiety disorder Chronic obstructive pulmonary disease, unspecified COPD type (HCC) Gastroesophageal reflux disease without esophagitis Esophageal reflux Lumbar spondylosis- Primary Lumbosacral spondylosis without myelopathy Post herpetic neuralgia 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 Type 2 diabetes mellitus with hyperglycemia, without long-term current use of insulin ([facility])- Primary Lumbar spondylosis Lumbosacral spondylosis without [...] Resolution Status Admit Date Post herpetic neuralgia chronicSeptember 2024 10:20am [facility] Work Phone: Hospital course Narrative No data available for this section [facility] Hospital Discharge instructions No data available for this section [facility] Progress note No data available for this section [facility] reason for referral (narrative)No reason for referral information availableUniversity [facility] Work Phone: Reason for visit Narrative* Consultation (Routine) - ClosedSpecialtyDiagnoses / ProceduresReferred By ContactReferred To Contact Neurology Diagnoses Other postherpetic nervous system involvement (CMS/HCC) Procedures [place] OFFICE/OUTPATIENT Thomas Bah MD [address] [place] [address] Phone: tel: fax: Carlos Abdi MD [address] [place] [address] Phone: tel: fax: Referral IDStatusReasonStart DateExpiration DateVisits RequestedVisits [id number] Consult and Treat [facility] Healthcare Summary Purpose Family History No [...] Found Advance Directives No Advanced Directives Records Found Advance Directive Response Recorded Date/ Time Advance Directives No January 10:19am Chief Complaint and Reason for Visit Chief Complaint Admit Date Amb Documentation January 25, 2025 1: 07pm Reason for Visit Admit Date Encounter for medication monitoring Jan 10:20am Cognitive impairment February 17 10:20am Post herpetic neuralgia February 17, 2025 10:20am Benign essential hypertension March 142024 10:55am COPD (chronic obstructive pulmonary dise ase) March 14, 2025 10:55am Generalized anxiety disorder March 10:55am Lumbar spondylosis March 14, 2025 1 0:55am Type 2 diabetes mellitus with hyperglyce vamsi March 14, 2025 10:55am Chief Complaint Admit Date Amb Documentation January [...] section and content) DATE CREATED AUTHOR 09/19/2022 [facility] DATE CREATED AUTHOR AUTHOR'S ORGANIZ ATION 08/13/2024 [facility] DATE CREATED AUTHOR AUTHOR'S ORGANIZ ATION 08/29/2024 [facility] DATE CREATED AUTHOR AUTHOR'S ORGANIZ ATION 10/30/2024 [facility] DATE CREATED AUTHOR AUTHOR'S ORGANIZ ATION 03/22/2025 [facility] DATE CREATED AUTHOR AUTHOR'S ORGANIZ ATION 03/24/2025 [facility] DATE CREATED AUTHOR AUTHOR'S ORGANIZ ATION 03/28/2025 [facility] DATE CREATED AUTHOR AUTHOR'S ORGANIZ ATION 03/29/2025 [facility] Care Teams (unrecognized sec tion and content) Team MemberRelationshipSpecialtyStart DateEnd Date Jorge Luis Malik MD [address] [place] [address] PCP - [facility]12/02/23 Jorge Luis Malik MD [address] [place] [address] PCP - J.F. Villareal MA04/02/24 Thomas Hassan MD [facility] [place] [address] Referring Kysckoehr56/22/24Team MemberRelationshipSpecialtyStart DateEnd Date Jorge Luis Malik MD [address] [place] [address] PCP - [facility]12/02/23 Jorge Luis Malik MD [address] [place] [address] PCP - J.F. Villareal OR04/02/24 Thomas Hassan MD [address] [place] [address] Referring Colrmmwop51/22/24Team MemberRelationshipSpecialtyStart DateEnd Date Jorge Luis Malik MD [address] [place] [address] PCP - GeneralFamily Medicine12/02/23Team MemberRelationshipSpecialtyStart DateEnd Date Jorge Luis Malik MD [address] [place] [address] PCP - Generalmily [facility]12/02/23 Jorge Luis Malik MD [address] [place] [address] PCP - J.F. Villareal [place]04/02/24 Thomas Hassan MD [address] [place] [address] Referring Dqdkhlsac42/22/24Team MemberRelationshipSpecialtyStart DateEnd Date Jorge Luis Malik MD [address] [place] [address] PCP - Generalmily Medicine12/02/23 Jorge Luis Malik MD [address] [place] [address] PCP - Brittany OR04/02/24 Thomas Hassan MD [address] [place] [address] Referring Ismdasdwb36/22/24Team MemberRelationshipSpecialtyStart DateEnd Date Jorge Luis Malik MD [address] [place] [address] PCP - [facility]12/02/23 Jorge Luis Malik MD [address] [place] [address] PCP - J.F. Villareal MA04/02/24 Thomas Hassan MD [address] [place] [address] Referring Rhrslyxce57/22/24Te MemberRelationshipSpecialtyStart DateEnd Date Jorge Luis Malik MD [address] [place] [address] PCP - [facility]12/02/23 Jorge Luis Malik MD [address] [place] [address] PCP - J.F. Villareal MA04/02/24 Thomas Hassan MD [address] [place] [address] Referring Nlsdtipbb47/22/24Te MemberRelationshipSpecialtyStart DateEnd Date Jorge Luis Malik MD [address] [place] [address] PCP - [facility]12/02/23 Jorge Luis Malik MD [address] [place] [address] PCP - J.F. Villareal [place]04/02/24 Thomas Hassan MD [address] [place] [address] Referring Qpdskawng71/22/24Team MemberRelationshipSpecialtyStart DateEnd Date Jorge Luis Malik MD [address] [place] [address] PCP - [facility]12/02/23 Jorge Luis Malik MD [address] [place] [address] PCP - J.F. Villareal [place]04/02/24 Thomas Hassan MD [address] [place] [address] Referring Yysbemjvo81/22/24Team MemberRelationshipSpecialtyStart DateEnd Date Jorge Luis Malik MD [address] [place] [address] PCP - [facility]12/02/23 Jorge Luis Malik MD [address] [place] [address] PCP - J.F. Villareal [place]04/02/24 Thomas Hassan MD [address] [place] [address] Referring Nrpnnduqp94/22/24Team MemberRelationshipSpecialtyStart DateEnd Date Jorge Luis Malik MD [address] [place] [address] PCP - [facility]12/02/23 Thomas Hassan MD [address] [place] [address] Referring Hkjbrnyxr04/22/24Team MemberRelationshipSpecialtyStart DateEnd Date Jorge Luis Malik MD [address] [place] [address] PCP - [facility]12/02/23 Thomas Hassan MD [address] [place] [address] Referring Feifdhtle57/22/24 Team Status: Inactive Member Role Status Dates Lalo Souza MD Attending Provider Active St art: August 26, 2024 End: August 26, 2024Team MemberRelationshipSpecialtyStart DateEnd Date Jorge Luis Malik MD [address] [place] [address] PCP - [facility]12/02/23 Jorge Luis Malik MD [address] [place] [address] PCP - J.F. Villareal MA04/02/24 Thomas Hassan MD [address] [place] [address] Referring Tucbfndzf95/22/24Team MemberRelationshipSpecialtyStart DateEnd Date Jorge Luis Malik MD [address] [place] [address] PCP - [facility]12/02/23 Thomas Hassan MD [address] [place] [address] Referring Dkuchuusf19/22/24Team MemberRelationshipSpecialtyStart DateEnd Date Jorge Luis Malik MD [address] [place] [address] PCP - [facility]12/02/23 Thomas Hassan MD [address] [place] [address] Referring Mgpsglytf59/22/24Team MemberRelationshipSpecialtyStart DateEnd Date Jorge Luis Malik MD [address] [place] [address] PCP - [facility]12/02/23 Jorge Luis Malik MD [address] [place] [address] PCP - J.F. Villareal MA04/02/24 Thomas Hassan MD [address] [place] [address] Referring Lxpxohstt62/22/24Team MemberRelationshipSpecialtyStart DateEnd Date Jorge Luis Malik MD [address] [place] [address] PCP - GeneralFamily Medicine12/02/23 Jorge Luis Malik MD [address] [place] [address] PCP - [facility]. Villareal [place]04/02/24 Thomas Hassan MD [address] [address] Referring Lgjomknmr28/22/24 Team Status: Active Member Role Status Dates Jorge Luis Malik MD Primary Care Provider Active Team Status: Active Member Role Status Dates Angelina Tapia Attending Provider Active Start: January 25, 2025 Team Status: Active Member Role Status Dates Jorge Luis Malik MD Attending Provider Active Star t: February 01, 2025 Team Status: Inactive Member Role Status Dates BOLIVAR Boogie Attending Provider Active Start: February 17, 2025 End: February 17, 2025[facility] Garcíamaryovany Care ProviderActiveStart: February 17, 2025 End: February 17, 2025 Team Status: Active Member Role Status Rob Malik MD Primary Care Provider Active S tart: March 05, 2025 ZULMA Boogie-CAttending ProviderActiveStart: March 05, 2025 Team Status: Inactive Member Role Status Rob Malik MD Primary Care Provider Active S tart: March 14, 2025 End: March 14, 2025Jorge Luis Malik MDAttending ProviderActiveStart: March 14, 2025 End: March 14, 2025 Reason for Visit (unrecogniz ed section and content) ReasonCommentsShortness of BreathReasonCommentsFollow-uplabsBlood in UrineOnly seeing blood when first uses restroom in amReasonCommentsMedicare Annual Wellness Visit SubsequentWellnessReasonCommentsPost herpetic neuralgiaReason CommentsPostherpetic neuralgiaReasonCommentsFollow-yv5aZkxz Pain Goals (unrecognized section and content) Goals [...] BE BASED ON THE PRIMARY CLINICAL RECORDS. [facility] [employer] [facility]. provides no warranty or guarantee of the accuracy or completeness of information in this document.
--- NOTE | 2025-03-31 14:13 | PM.PRESUREVA ---
History of Present Illness History of Present Illness Chief complaint: bladder tumor Narrative: Patient presents for presurgical testing. Please see HPI from Dr. Lemus dated March 21, 2025. Review of Systems ROS Narrative Please see ROS from Dr. Lemus dated March 21, 2025. [facility] History (Updated 03/31/25 @ 14:15 by Esthela Guerrero NP) COPD (chronic obstructive pulmonary disease) ?J44.9 - Chronic obstructive pulmonary disease, unspecified (ICD-10) Bladder cancer ?C67.9 - Malignant neoplasm of bladder, unspecified (ICD-10) Extremity edema ?R60.0 - Localized edema (ICD-10) Facial cellulitis (03/05/25) ?L03.211 - Cellulitis of face (ICD-10) COVID-19 (2024) ?U07.1 - COVID-19 (ICD-10) Dyspnea on exertion ?R06.09 - Other forms of dyspnea (ICD-10) GERD (gastroesophageal reflux disease) ?K21.9 - Gastro-esophageal reflux disease without esophagitis (ICD-10) Herpes zoster ?B02.9 - Zoster without complications (ICD-10) Post herpetic neuralgia ?B02.29 - Other postherpetic nervous system involvement (ICD-10) Diabetes ?E11.9 - Type 2 diabetes mellitus without complications (ICD-10) Hematuria ?R31.9 - Hematuria, unspecified (ICD-10) BPH with obstruction/lower urinary tract symptoms ?N40.1 - Benign prostatic hyperplasia with lower urinary tract symptoms (ICD-10) ?N13.8 - Other obstructive and reflux uropathy (ICD-10) Bladder tumor ?D49.4 - Neoplasm of unspecified behavior of bladder (ICD-10) Surgical History (Updated 03/29/25 @ 12:19 by Esthela Guerrero NP) H/O transurethral resection of bladder tumor (TURBT) (08/26/24) ?Z98.890 - Other specified postprocedural states (ICD-10) ?Z86.03 - Personal history of neoplasm of uncertain behavior (ICD-10) H/O foot surgery ?Z98.890 - Other specified postprocedural states (ICD-10) H/O transurethral resection of prostate ?Z98.890 - Other specified postprocedural states (ICD-10) ?Z90.79 - Acquired absence of other genital organ(s) (ICD-10) History of colonoscopy ?Z98.890 - Other specified postprocedural states (ICD-10) H/O inguinal hernia repair ?Z98.890 - Other specified postprocedural states (ICD-10) ?Z87.19 - Personal history of other diseases of the digestive system (ICD-10) H/O cystoscopy ?Z98.890 - Other specified postprocedural states (ICD-10) History of hernia repair ?Z98.890 - Other specified postprocedural states (ICD-10) ?Z87.19 - Personal history of other diseases of the digestive system (ICD-10) Family History (Updated 08/16/24 @ 13:43 by Esthela Guerrero NP) Other Family history of cancer Family history of stroke Rheumatoid arthritis Social History (Updated 08/16/24 @ 13:38 by Esthela Guerrero NP) Within the past year, how often did you have a drink containing alcohol: monthly or less Smoking status: Former smoker Non-prescribed substance use: denies use Highest level of school completed/degree received: high school graduate Little interest or pleasure in doing things: not at all Feeling down, depressed, or hopeless: not at all Meds Home Medications and Allergies Home Medications ?Medication ?Instructions ?Recorded ?Confirmed ?Type glipizide 10 mg tablet 10 mg PO QDAY 11/06/22 03/31/25 History metformin 500 mg tablet,extended 500 mg PO QDAY 11/06/22 03/31/25 History release 24 hr albuterol sulfate 90 mcg/actuation 2 inh inhalation Q6H PRN shortness 08/16/24 03/31/25 History aerosol inhaler of breath or wheezing hydroxyzine HCl 25 mg tablet 25 mg PO Q8H 08/16/24 03/31/25 History omeprazole 20 mg capsule,delayed 20 mg PO DAILY 08/16/24 03/31/25 History release acetaminophen 500 mg capsule 500 mg PO Q6H PRN pain 03/31/25 03/31/25 History carvedilol 6.25 mg tablet 6.25 mg PO Q12H 03/31/25 03/31/25 History lisinopril 10 mg tablet 10 mg PO DAILY 03/31/25 03/31/25 History pregabalin 25 mg capsule 25 mg PO Q12H 03/31/25 03/31/25 History Allergies Allergy/AdvReac Type Severity Reaction Status Date / Time codeine Allergy Severe Vomiting Verified 03/31/25 13:47 Exam Narrative Exam Narrative: Constitutional: Awake, alert, comfortable, well-appearing, nontoxic, interactive, vital signs as charted Head: Normocephalic, atraumatic Neck: Supple, normal appearance, normal range of motion, no meningeal signs, no lymphadenopathy Respiratory: No respiratory distress, breath sounds clear Cardiovascular: Regular rate and rhythm, strong and regular heart tones Abdomen: Nontender, normal bowel sounds, soft, no CVA tenderness Musculoskeletal: Normal gait, no swelling or edema Skin: No rashes or induration, no lesions, only visible skin inspected Neuro: No neurological deficits, normal sensation Psychiatric: Oriented ?3, normal affect Assessment and Plan Assessment and Plan (1) Bladder tumor: (2) Bladder cancer: Plan Cystoscopy, TURBT scheduled with Dr. Lemus April 14, 2025.
[2025-03-31 14:22] LABS: Hematocrit 36.2 % (42.0-54.0); Hemoglobin 12.2 g/dL (14.0-18.0); Immature Granulocytes Abs Auto 0.03 10^3/uL (0.00-0.03); Immature Granulocytes Pct Auto 0.3 % (0.0-0.5); Lymphocytes Absolute Auto 2.3 10^3/uL (1.2-3.8); Mean Corpuscular HGB Conc 33.7 g/dL (29.9-35.2); Mean Corpuscular Hemoglobin 30.7 pg (25.9-34.0); Mean Corpuscular Volume 91.0 fL (80.0-94.0); Platelet Count 385 10^3/uL (150-450); Red Blood Count 3.98 10^6/uL (4.70-6.10); White Blood Count 9.2 10^3/uL (4.0-11.0)
[2025-03-31 14:38] LABS: Anion Gap 13.7; Blood Urea Nitrogen 36.0 mg/dL (7.0-18.0); Calcium 9.3 mg/dL (8.5-10.1); Carbon Dioxide 29.5 mmol/L (21.0-32.0); Chloride 101 mmol/L (98-107); Estimated GFR (African America 54 (>=60 mL/min/1.73m^2); Estimated GFR (Non-African Ame 44 (>=60 mL/min/1.73m^2); Glucose 143 mg/dL (74-106); Potassium 4.2 mmol/L (3.5-5.1); Sodium 140 mmol/L (136-145)
[2025-03-31 14:59] LABS: INR 1.05; Partial Thromboplastin Time 28.2 sec (22.3-36.2); Prothrombin Time 11.1 sec (9.0-11.6)
== END 2025-03-31 13:26 | disposition home or self-care (01) ==
LOC: PST 13:25
PROVIDERS: PCP Family Medicine; Visit Provider Urology
DX: Z01.810 Encounter for preprocedural cardiovascular examination (principal); Z01.812 Encounter for preprocedural laboratory examination; Z01.818 Encounter for other preprocedural examination; N40.1 Benign prostatic hyperplasia with lower urinary tract symptoms; Z85.51 Personal history of malignant neoplasm of bladder
CPT/HCPCS: 80048; 85025; 85610; 85730; 93005; G0463

== ENCOUNTER 2025-04-14 10:39 | Day surgery (SDC) | payer MEDICARE, SELFPAY ==
[2025-03-31 14:09] VITALS: BP 126/81; PULSE 79; TEMP 36.4; O2SAT 98; BMI 31.0
[2025-04-14] VITALS (9 sets, daily range): BP systolic 120–145; BP diastolic 76–85; PULSE 68–98; TEMP 36.1–36.4; O2SAT 96–98; BMI 24.8
--- OUTSIDE RECORDS SUMMARY | 2025-04-14 10:43 | XMS_ITS | Clinical Summary ---
Author Organization [facility] Healthcare Address [address] [place] [address] Care Team Providers Care Core Stripper Name Role Phone Jorge Luis Sotelo MD Primary Care Provider Thomas Hassan MD Unavailable Jorge Luis Sotelo MD Unavailable Allergies Active AllergyReactionsCriticalityNoted DclnPudkeokzYuihgjm00/18/2024 Medications MedicationSigDispense QuantityRefillsLast FilledStart DateEnd DateStatus albuterol [...] 1105Active Active Problems ProblemNoted DateDiagnosed DateBenign essential oagfmqfruzds69/05/2025 Assessment & Plan (01/04/2025 2:21 PM EDT): BP controlled and monitor PRN. Urothelial carcinoma of lzeehdx7509/28/2024 Assessment & Plan (01/04/2025 2:21 PM EDT): Follow with urology. Dsxzzpjp24/24/2025PH with urinary rjezqqmabfr07/24/2025Medicare annual wellness visit, ntuibbrzdw36/05/2025 Assessment & Plan (07/07/2024 2:15 PM EST): Due for labs. Discussed proper diet and regular aerobic exercise. Need aerobic exercise 5-6 days a week for 30 minutes at a time. Smaller portions and limit total calories. Tetanus every 10 years. Advised not to smoke. Statin bzerpusn72/05/2025Encounter for long-term (current) use of medications 05/17/2024Encounter for screening prostate specific antigen (PSA) measurement 05/17/2024Lumbar fyqbkiphhhy36/02/2024 Assessment & Plan (01/04/2025 2:21 PM EDT): [...] EST): Breathing stable and use albuterol PRN. Aqxbzwfynuyn62/05/2024 Assessment & Plan (07/07/2024 2:15 PM EST): Prior statin intolerance. Generalized anxiety blbijwzk64/05/2024 Assessment & Plan (01/04/2025 2:21 PM EDT): Occasional symptoms but tolerable and use xanax PRN. Assessment & Plan (01/06/2024 1:48 PM EDT): Occasional symptoms but tolerable and use xanax PRN. Assessment & Plan (07/07/2023 2:22 PM EST): Occasional symptoms but tolerable and use xanax PRN. Adult uijthcewqwptco36/05/2024Persistent disorder of initiating or maintaining sleep4Post herpetic ialrtblan49/05/2024 Assessment & Plan (01/04/2025 2:21 PM EDT): [...] and continue. Type 2 diabetes mellitus with /05/2024 Assessment & Plan (01/04/2025 2:21 PM [...] and limit carbs. Gastroesophageal reflux disease without skbskvwhrug50/05/2024 Assessment & Plan (01/06/2024 1:48 PM EDT): Symptoms controlled with medication and continue. Assessment & Plan (07/07/2023 2:21 PM EST): Symptoms controlled with medication and continue. Resolved Problems ProblemNoted DateDiagnosed DateResolved DateBladder neoplasm of uncertain malignant rlihyvhuf99Gross Assessment & Plan (06/14/2024 1:38 PM EST): Reports blood in urine off and on of unclear etiology. Check urine and refer to urology for possible cystoscopy. Elevated blood pressure reading without diagnosis of gohonwwivjkq83/05/2024 05/17/2024 Encounters DateTypeDepartmentCare UbicQnzxvfnuapa88/16/2025Refill [facility] [address] [place] [address] Jorge Luis Sotelo MD Type 2 diabetes mellitus with hyperglycemia (HCC)from Last 3 Months Immunizations ImmunizationAdministration DatesNext DueInfluenza, High Dose Seasonal, Preservative Free03/10/2019,02/11/2018,04/10/2016,03/10/2015Influenza, High-dose Seasonal, Quadrivalent, Preservative Free04/08/2022Influenza, Seasonal, Quadrivalent, Obpglfhopw80/06/2023,1Pfizer Purple Cap SARS-CoV-2 Pnropkompct01/20/2021,07/21/2020,1Pneumococcal Conjugate PCV 20 4Pneumococcal Polysaccharide VMZN5437Unknown outside qlcbgkidkfsz18/11/2020Zoster, Mzlrcxbgkyu08/12/2024,10/07/2023 Family History Medical HistoryRelationNameCommentsCoronary artery diseaseFatherDiabetesFather CancerMotherLung cancerMotherRelationNameStatusCommentsFatherMother Social History Tobacco UseTypesPacks/DayYears UsedDateSmoking Tobacco: BctuvoRozskejhqn1374861 - 1966Smokeless Tobacco: Never Tobacco Cessation:Counseling Given: Not Answered Alcohol UseStandard Drinks/WeekCommentsNot Currently0 (1 standard drink = 0.6 oz pure alcohol)PHQ-2AnswerDate RecordedPatient Health Questionnaire-2 Score0 07/07/2024Sex and Gender InformationValueDate RecordedSex Assigned at BirthNot on fileLegal EajTbka3401/14/2023 10:18 AM EDTGender IdentityNot on fileSexual OrientationNot on file Last Filed Vital Signs Vital SignReadingTime TakenCommentsBlood Wvgjoacv597/78001/04/2025 1:44 PM EDT Nokwn2314/05/2025 1:44 PM GYKVbxzxcokoyr76.2 ??C (97.1 ??F)01/04/2025 1:44 PM EDTRespiratory Hewx963301/04/2025 1:44 PM EDTOxygen Bokemfpmjy31%01/04/2025 1:44 PM EDTInhaled Oxygen Concentration--Mshugw59.5 kg (173 lb)01/04/2025 1:44 PM EDT Oelonl782.8 cm (5' 10 )01/04/2025 1:44 PM EDTBody Mass Index24.8201/04/2025 1:44 PM EDT Plan of Treatment Health MaintenanceDue DateLast DoneCommentsDiabetes: Hemoglobin A1C11/22/2024 05/24/2024, 01/20/2024, 3COVID-19 Vaccine ( season) , 07/21/2020, 06/30/2020Influenza Vaccine (#1)2025 03/07/2023, 04/08/2022, 03/22/2021, Additional history existsDiabetes: Urine Protein Tgoyjkwef32/23/228978/, 05/02/2023Medicare Annual Wellness (AWV) /09/2024Diabetes: Retinopathy Ukwefikgp40/08/2023 Pneumococcal Vaccine: 65+ ZenjtQosxssabw87/12/2024, 08/21/2010 Insurance * Guarantor: Maged Espinal Jr.Account TypeRelation to PatientDate of BirthPhone Billing AddressPersonal/Zw[address]aZbad[address] [place] [address] Care Teams Team MemberRelationshipSpecialtyStart DateEnd Date Jorge Luis Sotelo MD PCP - GeneralFamily Medicine12/02/23 Jorge Luis Sotelo MD [address] [place] [address] PCP - [place] ESTELLA04/02/24 Thomas Hassan MD [address] [place] [address] Referring Cnyndgcsf10/22/24
--- OUTSIDE RECORDS SUMMARY | 2025-04-14 10:43 | XMS_ITS | Encounter Summary ---
Author Organization [facility] Address [address] [place] [address] Care Team Providers Care Bite Block Maker Name Role Phone Jorge Luis Malik MD Primary Care Provider [phone] Thomas Hassan MD Unavailable Jorge Luis Malik MD Unavailable Encounter Details DateTypeDepartmentCare Team (Latest Contact Info)Hzzcfcsxbvi97/06/2024Clinisync Result Encounter [facility] External Department Unsolicited Jorge Luis Malik MD [address] [place] [address] Social History Tobacco UseTypesPacks/DayYears UsedDateSmoking Tobacco: CdaucsXbkzquuxwh3514863 - 1966Smokeless Tobacco: NeverPHQ-2AnswerDate RecordedPatient Health Questionnaire-2 Yfmnk619Sex and Gender InformationValueDate RecordedSex Assigned at BirthNot on fileLegal XjjIlvp4601/14/2023 10:18 AM EDTGender Identity Not on fileSexual OrientationNot on filedocumented as of this encounter Functional Status * Over the past 2 weeks, how often have you been bothered by any of the following problems?QuestionAnswerDate of AssessmentAuthorLittle interest or pleasure in doing thingsNot at all07/07/2024 1:00 PM Pao Russell MA Feeling down, depressed, or hopelessNot at all07/07/2024 1:00 PM Pao Russell MAPatient Health Questionnaire-2 Qkguz720 1:00 PM Pao Russell MA * QuestionAnswerDate of AssessmentAuthorTrouble falling or staying asleep, or sleeping too muchNot at all07/07/2024 1:00 PM Pao Russell MAFeeling tired or having little energySeveral days07/07/2024 1:00 PM Pao Russell MAPoor appetite or overeatingNot at all07/07/2024 1:00 PM Pao Russell MA Feeling bad about yourself - or that you are a failure or have let yourself or your family downNot at all07/07/2024 1:00 PM Pao Russell MATrouble concentrating on things, such as reading the newspaper or watching television Not at all07/07/2024 1:00 PM Pao Russell, MAMoving or speaking so slowly that other people could have noticed? Or the opposite - being so fidgety or restless that you have been moving around a lot more than usual.Not at all 07/07/2024 1:00 PM Pao Russell MAThoughts that you would be better off or hurting yourself in some wayNot at all07/07/2024 1:00 PM Pao Russell MAPatient Health Questionnaire-9 Frmxf669 1:00 PM Pao Russell MA documented as of this encounter Plan of Treatment Not on file documented as of this encounter Procedures Procedure NamePriorityDate/TimeAssociated DiagnosisCommentsXR LUMBAR SPINE 2 OR 3V12/06/2023 4:26 AM EDT documented in this encounter Results * XR LUMBAR SPINE 2 OR 3V (12/06/2023 4:26 AM EDT)Anatomical RegionLaterality ModalityRadiographic ImagingSpecimen (Source)Anatomical Location / Laterality Collection Method / VolumeCollection TimeReceived Time12/06/2023 4:26 AM EDT Narrative 12/06/2023 4:29 AM EDT [facility] ?[address] ? [place] [address] ?XRay Report ? Signed ? Patient: ASHLEY,JAM Jr. ?MR#: [id number] ?? : 1940 ?Acct:[id number] ?? Age/Sex: 83 / M ?ADM Date: 07/03/24 ?? Loc: RAD ? Attending Dr: Jorge Luis Malik M.D. ? Ordering Physician: Jorge Luis Malik M.D. ?? Date of Service: 12/03/23 ?? Procedure(s): XR lumbar spine 2-3V ?? Accession Number(s): [id number] ? cc: Jorge Luis Malik M.D. ? [facility] ? [address] ? [place] [address] ? Patient Name: ?? JAM ??ASHLEY ? MRN: [facility]:[id number] ? date: 1940 ?Sex: M ?? Assigned Patient Location: RAD ?? Current Patient Location: ? Accession/Order Number: [id number] ?? Exam Date: 12/03/2023 ??13:05 ?Report Date: 12/06/2023 ??04:26 ? At the request of: ?? JORGE LUIS ??KING ? Procedure: ??XR lumbar spine 2-3V ? EXAMINATION: XR lumbar spine 2-3V ? HISTORY: Lumbar spondylosis M47.816 ? COMPARISON: No relevant comparison available. ? FINDINGS: ?? BONES: Mild left convex curvature of lumbar spine. Moderate degenerative facet ? arthropathy L3-L4 through L5-S1. Minimal grade 1 retrolisthesis of L2 on 3. No ? compression fracture. ?? DISC SPACES: Moderate narrowing L1-L2. Marked narrowing L5-S1. ?? PARASPINOUS: Marked atherosclerotic disease of distal aorta. ?? OTHER: Negative. ? XR/XR lumbar spine 2-3V ?? IMPRESSION: ? 1. Multilevel degenerative disc disease and facet arthropathy. ?? 2. No appreciable fracture or acute abnormality. ? Electronically authenticated by: ALESSANDRO ??ARAMIS ?? Date: 12/06/2023 ??04:26 ? Dictated By: ?Alessandro Adames M.D. ? Signed By: ?12/06/239 ? DD/ 5 ? TD/TT: ? Heating Worker: Procedure Note Radiology, Radiologist, MD - 12/06/[address] [address] XRay Report Signed Patient: JAM ESPINAL MR#: [id number] : 2Acct:[id number] Age/Sex: 83 / MADM Date: 12/03/23 Loc: RAD Attending Dr: Jorge Luis Malik M.D. Ordering Physician: Jorge Luis Malik M.D. Date of Service: 12/03/23 Procedure(s): XR lumbar spine 2-3V Accession Number(s): [id number] cc: Jorge Luis Malik M.D. [place] [address] Patient Name: JAM ESPINAL MRN: [id number] date: 1940 Sex: M Assigned Patient Location: [facility] Current Patient Location: Accession/Order Number: [id number] Exam Date: 12/03/2023 13:05 Report Date: 12/06/2023 04:26 At the request of: JORGE LUIS MALIK Procedure: XR lumbar spine 2-3V EXAMINATION: [...] 04:26 Dictated By: Alessandro Adames M.D. Signed By:12/06/23 0429 DD/ 5 TD/TT: Heating Worker: Authorizing ProviderResult TypeResult StatusMarc King BURGER XR PROCEDURES Final Result documented in this encounter Visit Diagnoses Not on filedocumented in this encounter Care Teams Team MemberRelationshipSpecialtyStart DateEnd Date Jorge Luis Malik MD PCP - GeneralFamily Medicine12/02/23 Jorge Luis Malik MD [address] [facility] [place] [address] PCP - Brittany SORIA04/02/24 Thomas Hassan MD [address] [place] [address] Referring Gzhufzggb17/22/24documented as of this encounter
--- OUTSIDE RECORDS SUMMARY | 2025-04-14 10:43 | XMS_ITS | Clinical Summary ---
Author Organization [facility] Address [address] [place] [address] Care Team Providers Care Manager Department Name Role Phone Jorge Luis Sotelo MD Primary Care Provider [phone] Allergies Active AllergyReactionsCriticalityNoted DateCommentsCodeineNausea Only08/23/2024 Medications MedicationSigDispense [...] at bedtime.Active Active Problems ProblemNoted DateDiagnosed DateCognitive hdhwnshavh36/20/2025History of bladder anepqk1103/18/2025enign essential buakptdoxjzz41/05/7581Wficlmuihtmm25/29/2025 Urothelial carcinoma of xvtgpio0109/28/2024ladder neoplasm of uncertain malignant yuyeocldf71/24/2025PH with urinary mcjwdolltfv04/24/5793Kumeujbd80/24/2025 Statin gjueeayw23/05/2025Medicare annual wellness visit, yczccnbmem30/05/2025 Gross ozbwfgmyk09/13/2025Encounter for screening prostate specific antigen (PSA) ccppwjoksul94/16/2024Lumbar iveeidvmzxz34/02/2024dult sbzpzsioldnzui33/05/2024 COPD (chronic obstructive pulmonary disease)07/07/20237655Gqhjleeguggo48/05/2024 Gastroesophageal reflux disease without syvrgrfktmy94/05/2024Generalized anxiety cxnlydwe43/05/2024ersistent disorder of initiating or maintaining sleep 07/07/2023ost herpetic eebvjyefp83/05/2024Type 2 diabetes mellitus with fopmwhmfmvgrn34/05/2024 Encounters DateTypeDepartmentCare WionZtwcitjnbud65/20/2025 1:15 PM EDTOffice Visit [facility] [address] [place] [address] Kristen Gill MD Preoperative clearance [...] RecordedSex Assigned at Male12/08/2024 11:28 AM EDTLegal YliKyye5908/18/2024 2:40 PM EDTGender Identity Male12/08/2024 11:28 AM EDTSexual OrientationHeterosexual or Elxagxki71/09/2025 11:28 AM EDT Last Filed Vital Signs Vital SignReadingTime TakenCommentsBlood Cqfvvcrl316/7103/21/2025 1:10 PM EDT Gokpo257503/21/2025 1:10 PM EDTTemperature--Respiratory Rate--Oxygen Enaofrmwep09% 03/21/2025 1:10 PM EDTInhaled Oxygen Concentration--Ovybyu31.8 kg (176 lb) 03/21/2025 1:10 PM YSPJzcyts690.8 cm (5' 10 )03/21/2025 1:10 PM EDTBody Mass Index25.251 1:10 PM EDT Plan of Treatment Health MaintenanceDue DateLast DoneCommentsDiabetes: Hemoglobin A1C1940 Medicare Annual Wellness (AWV)2Diabetes: Retinopathy Screening 2Depression Qoaqtvvpt99/02/1954Diabetes: Urine Protein Screening 1Adult Jmesfck9205/03/1964Fall Risk Tvmmffxzx66/02/2007COVID-19 Vaccine ( season), 07/21/2020, 06/30/2020Influenza Vaccine (#1)51, 04/08/2022, 03/22/2021, Additional history existsPneumococcal Vaccine: 50+ JrpluLrqpotddt86/12/2024, 08/21/2010Zoster ClysivpkZijfwpsag25/12/2024, 10/07/2023HIB VaccinesAged OutNo longer eligible based on [...] Jorge Luis Sotelo MD [address] [facility] [place] [address] PCP - GeneralFamily Medicine08/18/24
--- OUTSIDE RECORDS SUMMARY | 2025-04-14 10:43 | XMS_ITS | Clinical Summary ---
Author Organization [facility] tem Address [id number] [address] [place] [address] Care Team Providers Care Egg Buyer Name Role Phone Jorge Luis Sotelo MD Primary Care Provider [phone] Allergies Active AllergyReactionsCriticalityNoted YdlmUyebmwbsAteaofzMoufwcswSee62/22/2020 Medications MedicationSigDispense QuantityRefillsLast FilledStart DateEnd DateStatus naproxen [...] of Binge DrinkingNot on file06/23/2019ChildcareAnswerDate RecordedChildcareUnknown 11/11/2018EmploymentAnswerDate OdiajayaPicsuwctraFlhzoth36/12/2019Purpose - Life AnswerDate RecordedPurpose and direction in rvmcDwanprg99/11/2021Sex and Gender InformationValueDate RecordedSex Assigned at BirthNot on fileLegal SexMale 01/05/2015 11:35 AM EDTGender IdentityNot on fileSexual OrientationNot on file Last Filed Vital Signs Vital SignReadingTime TakenCommentsBlood Qzpgzmuc410/9907/20/2019 2:45 PM EST Hdstw071607/20/2019 2:55 PM QTLSclmpylvuqb89.4 ??C (97.6 ??F)07/20/2019 12:37 PM ESTRespiratory Mmsg649407/20/2019 12:37 PM ESTOxygen Ijviyjzyhe48%07/20/2019 2:55 PM ESTInhaled Oxygen Concentration--Gitgkf49.9 kg (185 lb)07/20/2019 12:37 PM ZVIIauhwh814.8 cm (5' 10 )07/20/2019 12:37 PM ESTBody Mass Index26.54007/20/2019 12:37 PM EST Plan of Treatment Health MaintenanceDue DateLast DoneCommentsDepression Koadliipu35/02/1954Tobacco Ydvuvnfge65/02/1954DTaP,Tdap and Td Vaccines (1 - Tdap)1961Zoster (Shingles) Vaccine (1 of 2)1992Fall Risk Yalrcxusq67/02/2007RSV ( or age 60+ yrs) (1 - 1-dose 75+ series)2017Influenza Gtsiuix9901/31/2025 03/10/2019, 02/11/2018, 04/10/2016, Additional history exists Medical Devices ImplantedTypeAreaManufacturerDevice IdentifierShelf Expiration DateModel / Serial / LotLens Iol Ultrasert 20.0d - [id number] [id number] - [id number] Implanted:Qty: 1 on 06/29/2019 [facility]: [id number] 20.0 / [id number] / Lens Iol Ultrasert 20.0d - [id number] 017 - [id number] Implanted:Qty: 1 on 07/20/2019 by [facility]: [id number] 20.0 / [id number] / Insurance Care Teams Team MemberRelationshipSpecialtyStart DateEnd Date Jorge Luis Sotelo MD PCP - GeneralFamily Medicine06/29/19
[2025-04-14] MEDS: CEFAZOLIN SODIUM 2 GM/50 ML D5W PREMIX IV (12:30)
--- NOTE | 2025-04-14 13:19 | PM.URSON ---
Urology Surgery Operative Note Operative Note Procedure Date: 04/14/25 Time Out Performed: yes Pre-op Diagnosis: Recurrent bladder tumors Post-op Diagnosis: same as pre-op Procedures performed: 1. Cystoscopy. 2. 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 Surveillance cystoscopy revealed recurrent small low-grade appearing tumors on the anterior wall. He now presents for cystoscopy and TURBT. He has signed an informed consent after risks were explained. Detailed description of Procedure: The patient was brought to the operating room and placed on the operating room table in the supine position. SCDs were placed on the lower extremities and turned on and functioning during the entire case. Timeout was done by all parties in the room. We all agreed upon the patient's identification and the planned procedures for this patient. Genn. anesthesia was then administered. The patient was then repositioned into the modified dorsal lithotomy position. All pressure points were satisfactorily padded. Genitalia were sterilely prepped and draped in usual fashion. I started by passing a 26 Tuvaluan Olympus resectoscope with a standard bipolar loop electrode per urethra and into the bladder. Anterior urethra was normal. Prostatic urethra revealed by lobar hypertrophy. Panendoscopy in the bladder revealed anterior papillary TCC appearing tumors. There were 9 of them. I then uniformly and deeply resected them all. The resection beds were coagulated fully. The [employer] evacuator was used to get all the tumor pieces out and these were sent for permanent sections. There were several tiny tumors which were simply coagulated with the loop electrode. Upon completion, there was no bleeding and no tumors remaining within the bladder. The scope was then removed. I then placed a 20 Tu[place]uan two-way Jama in the bladder. 10 cc of fluid was placed in the balloon. It irrigated clear. The anesthetic was then reversed. He was then transferred [facility] a [facility] bed and wheeled to PACU in stable condition. Urinary Catheter Management Urinary Catheter Management Urethral: Cath placed during this visit: no
== END 2025-04-14 14:24 | disposition home or self-care (01) ==
LOC: SURGOUT 10:40
PROVIDERS: PCP Family Medicine; Visit Provider Urology
PROC: (CPT 52234; principal; 2025-04-14 11:40)
DX: C67.9 Malignant neoplasm of bladder, unspecified (principal); K21.9 Gastro-esophageal reflux disease without esophagitis; R31.9 Hematuria, unspecified; N40.0 Benign prostatic hyperplasia without lower urinary tract symptoms; I10 Essential (primary) hypertension; E11.9 Type 2 diabetes mellitus without complications; Z79.84 Long term (current) use of oral hypoglycemic drugs; Z87.891 Personal history of nicotine dependence; J44.9 Chronic obstructive pulmonary disease, unspecified; R06.09 Other forms of dyspnea; F41.9 Anxiety disorder, unspecified
CPT/HCPCS: 52234; 36415; 82948; 88307; J0690; J1100; J2003; J2371; J2405; J2704; J3010